=== PATIENT | female | born 1940 | race Caucasian/White ===

== ENCOUNTER 2023-06-29 09:22 | Outpatient (OUT) | payer MEDICARE, OTHER, SELFPAY ==
--- NOTE | 2023-06-29 09:34 | MR_ITS ---
[address] [address] Patient Name: DEEPIKA WILSON MRN: [id number] date: 1940 Sex: F Assigned Patient Location: MRI Current Patient Location: MRI Accession/Order Number: [id number] Exam Date: 06/29/2023 09:48 Report Date: 06/29/2023 12:08 At the request of: ADAM HILLMAN Procedure: MR lumbar spine wo con EXAM: MR lumbar spine wo con HISTORY: Spondylosis Of Lumbar Region M47.816 COMPARISON: None. TECHNIQUE: Multiplanar multisequence MR imaging of lumbar spine was performed without intravenous contrast. FINDINGS: Alignment: No substantial subluxation. Vertebrae: Diffuse chronic compression deformities are present involving all levels of the visualized thoracic and lumbar spine extending from T11 through L5 with varying degrees of height loss. There is near complete central height loss at L3 and prominent at least 70% height loss at T12 and L1. Approximately 60% height loss centrally at L5. There is associated prior vertebroplasty change at L5. There is associated retropulsion at multiple levels most prominently involving the posterior endplate of L3 superiorly measuring 4.5 mm. No marrow signal abnormalities to suggest neoplasm. Conus medullaris: Conus terminates in normal position at L1-L2 disc space. Normal signal and contour. Degenerative changes: T12-L1: Mild canal stenosis secondary to bulge and. No substantial foraminal stenosis. L1-L2: Mild canal stenosis secondary to retropulsion. No substantial foraminal stenosis. L2-L3: Mild diffuse disc bulge with small right subarticular protrusion. Mild facet arthropathy with thickening of ligamentum flavum. No substantial canal stenosis. Moderate bilateral foraminal stenosis. L3-L4: Diffuse disc bulge somewhat lobular appearance with mild canal stenosis. Superimposed retropulsion present slightly more superiorly resulting in mild canal stenosis at the level of mid L3 vertebral body. Mild facet arthropathy with thickening of ligamentum flavum. Mild left and minimal right foraminal stenosis. L4-L5: Moderate facet arthropathy with thickening of ligamentum flavum. Mild canal stenosis. Mild bilateral foraminal stenosis. L5-S1: Moderate left greater than right facet arthropathy with minimal thickening of ligamentum flavum. No substantial canal or foraminal stenosis. Upper Sacrum: No focal lesion identified. Additional comments: Probable right extrarenal pelvis. Multiple left renal cystic lesions are present measuring up to 1.9 cm along the posterior aspect of the left kidney. MR/MR lumbar spine wo con IMPRESSION: 1. Diffuse compression deformities involving the visualized lower thoracic and lumbar spine as detailed above without associated marrow edema to suggest acute to subacute fracture. Prior vertebroplasty changes present at L5. 2. Mild to moderate degenerative changes superimposed on multilevel mild retropulsion resulting in multilevel mild canal stenosis. 3. Multiple T2 hyperintense renal cystic lesions are present measuring up to 1.9 cm. While statistically these are likely to relate to simple cysts if not previously evaluated elsewhere renal ultrasound could be considered for further characterization. Electronically authenticated by: JOANNA VILLEDA Date: 06/29/2023 12:08
== END 2023-06-29 09:23 | disposition home or self-care (01) ==
PROVIDERS: PCP Family Medicine; Visit Provider Family Medicine
DX: M47.816 Spondylosis without myelopathy or radiculopathy, lumbar region (principal)
CPT/HCPCS: 72148

== ENCOUNTER 2023-12-24 08:40 | Emergency (ER) | payer MEDICARE, OTHER, SELFPAY ==
[2023-12-24] VITALS (17 sets, daily range): BP systolic 117–145; BP diastolic 60–83; PULSE 80–108; RESP 10–11; TEMP 36.8; O2SAT 99–100; BMI 20.5
--- NOTE | 2023-12-24 08:52 | XR_ITS ---
The [address] [address] Patient Name: DEEPIKA WILSON MRN: [id number] date: 1940 Sex: F Assigned Patient Location: ER Current Patient Location: ER Accession/Order Number: [id number] Exam Date: 12/24/2023 09:30 Report Date: 12/24/2023 09:43 At the request of: JOEL UREÑA Procedure: XR chest 1V EXAM: XR chest 1V HISTORY: cp COMPARISON: None. TECHNIQUE: AP view of the chest. FINDINGS: The cardiomediastinal silhouette is normal. Linear opacity of the right lung base. There is no pneumothorax. No pleural effusion is noted. The osseous structures are intact. XR/XR chest 1V IMPRESSION: Right basilar linear opacity may represent atelectasis or developing pneumonia. Electronically authenticated by: KEMAR PETERSON Date: 12/24/2023 09:43
--- NOTE | 2023-12-24 09:02 | ED_ITS ---
HPI - General Adult General Chief complaint: Chest Pain Stated complaint: CHEST PAIN Time Seen by Provider: 12/24/23 08:50 Source: patient Mode of arrival: ambulance History of Present Illness HPI narrative: Patient is a 83-year-old female who is presenting with left upper chest wall tightness and heaviness that started at 11 PM last night. Patient had mild nausea with this as well. Patient also has left-sided headache. Patient has no strokelike signs or symptoms. Patient has a history of 2 cardiac stents. Patient takes a baby aspirin daily only. Patient does have a history of atrial flutter and atrial fibrillation, she is currently in atrial flutter. Patient currently has no chest pain or shortness of breath. Patient has mild nausea no vomiting. Patient last stress test echocardiogram was approximately 4 years ago. Patient is currently at the [facility], she had left hip surgery last week with a left hip replacement at [facility]. Patient PCP is Dr. Ledezma. Patient's roving weight gauger is in the [facility] group. Her female roving weight gauger retired, she has not seen a new roving weight gauger yet. No other acute complaints. We did not receive report from the [facility] prior to patient arriving. I called the [facility] and spoke to Chiquita the nurses taking care of the patient. Chiquita told me that patient started having pain around 8:00 this morning, did not speak to Dr. Lagos, but sent patient to the ER to be evaluated at patient's request. All systems are negative except as noted/marked. All systems reviewed and otherwise negative. Nurses note and vital signs reviewed and patient is not hypoxic. General: The patient appears well and in no apparent distress. Patient is resting comfortably on cart. Patient is not toxic, lethargic, or listless Skin: Warm, dry, no pallor noted. There is no rash noted. No petechiae, purpur a. Patient has ecchymosis to her left lower buttock and left posterior thigh secondary to surgery. Patient has no large hematoma, incision is clean, dry, intact. No signs of bleeding or secondary infection. Patient's left hip and left posterior left thigh is normal for surgery. No large palpable hematoma. Head: Normocephalic, atraumatic Eye: Normal conjunctiva, no drainage, EOMI. PERRL Ears, Nose, Mouth, and Throat: oral mucosa is slightly dry. Nares patent. Mouth without vesicles. Cardiovascular: Regular Rate and Rhythm, no murmur, gallop, rub; no reproducible tenderness to palpation. Respiratory: Patient is in no distress, no accessory muscle use, lungs are clear to auscultation, no wheezing, rales or rhonchi Back: non-tender, no CVA tenderness bilaterally to percussion. No CT LS midline pain GI: no tenderness to palpation, no masses appreciated. No rebound, guarding, or rigidity noted. No distention Musculoskeletal: Patient has full range of motion of all of the extremities, no motor, sensory, or focal neurological deficits Neurological: A&O x4, normal speech Psychiatric: Cooperative Related Data Home Medications Medication Instructions Recorded Confirmed aspirin 81 mg capsule 81 mg PO DAILY 12/24/23 12/24/23 atorvastatin 20 mg tablet 20 mg PO .QHS 12/24/23 12/24/23 celecoxib 100 mg capsule 100 mg PO Q24H 12/24/23 12/24/23 cephalexin 500 mg capsule 500 mg PO Q12H 12/24/23 12/24/23 hydrocodone 5 mg-acetaminophen 325 1 tab PO Q6H PRN pain 12/24/23 12/24/23 mg tablet isosorbide mononitrate 60 mg 60 mg PO QAM 12/24/23 12/24/23 tablet,extended release 24 hr lisinopril 10 mg tablet 10 mg PO QAM 12/24/23 12/24/23 metoprolol tartrate 25 mg tablet 25 mg PO Q12H 12/24/23 12/24/23 paroxetine HCl 40 mg tablet 40 mg PO QAM 12/24/23 12/24/23 quetiapine 25 mg tablet 25 mg PO .QHS 12/24/23 12/24/23 Allergies Allergy/AdvReac Type Severity Reaction Status Date / Time morphine AdvReac Severe Hallucinati Verified 12/24/23 08:47 ng Sulfa (Sulfonamide AdvReac Severe Verified 12/24/23 08:47 Antibiotics) Exam Constitutional Vital Signs, click to edit/add: Last Vital Signs Temp 98.3 F 12/24/23 08:42 Pulse 83 12/24/23 10:50 Resp 11 L 12/24/23 08:44 BP 117/83 12/24/23 10:31 Pulse Ox 99 12/24/23 08:50 O2 Del Method Room Air 12/24/23 08:42 Course Vital Signs Vital signs: Vital Signs Temperature 98.3 F 12/24/23 08:42 Pulse Rate 94 H 12/24/23 08:42 Respiratory Rate 10 L 12/24/23 08:42 Blood Pressure 125/73 12/24/23 08:42 Pulse Oximetry 99 12/24/23 08:42 Oxygen Delivery Method Room Air 12/24/23 08:42 Temperature 98.3 F 12/24/23 08:42 Pulse Rate 83 12/24/23 10:50 Respiratory Rate 11 L 12/24/23 08:44 Blood Pressure 117/83 12/24/23 10:31 Pulse Oximetry 99 12/24/23 08:50 Oxygen Delivery Method Room Air 12/24/23 08:42 Medical Decision Making MDM Narrative Medical decision making narrative: Patient potassium was 3.2. Patient was given oral potassium to drink. Patient had 2 sets of cardiac enzymes that were negative. [address] Ledezma, he agrees that patient can go back to the [facility], in light of 2 negative troponins and patient's been pain-free for the past 3-1/2 hours that she has been here. He is aware that her past roving weight gauger has retired, and he will help set patient up with a new roving weight gauger and repeat stress echocardiogram as indicated. Patient understands this, no questions at discharge. Patient's headache is better, nausea has improved. Patient's daughter will drive him back to the [facility]. Patient has been doing rehab with a walker. Patient is asymptomatic at discharge. 3 and half hours of continuous cardiac monitoring, several bedside visits to reassess patient's symptoms, hemodynamics, 2 sets of troponins that were negative. Critical care time 31 minutes exclusive from separate billable procedures that were performed. The following was considered in the determination of critical care but not limited to the level of medical decision making, intensive cardiac and/or respiratory monitoring, frequent vital sign monitoring, evaluation of laboratory studies, evaluation of radiographic studies, oxygen monitoring, and constant monitoring and speaking to family at bedside Lab Data Labs: Lab Results 12/24/23 12/24/23 Range/Units 09:12 10:35 WBC 13.4 H (4.0-11.0) 10^3/uL RBC 2.14 L (4.20-5.40) 10^6/uL Hgb 8.5 L (12.0-16.0) g/dL Hct 25.7 L (36.0-48.0) % MCV 120.1 H (81.0-99.0) fL MCH 39.7 H (26.7-34.0) pg MCHC 33.1 (29.9-35.2) g/dL RDW 17.7 H (11.0-15.0) % Plt Count 602 H (150-450) 10^3/uL MPV 9.7 (9.5-13.5) fL Neut % (Auto) 78.6 H (43.0-75.0) % Lymph % (Auto) 8.4 L (20.5-60.0) % [place] % (Auto) 7.8 (1.7-12.0) % Eos % (Auto) 1.2 (0.9-7.0) % Baso % (Auto) 0.4 (0.2-2.0) % Neut # (Auto) 10.5 H (1.4-6.5) 10^3/uL Lymph # (Auto) 1.1 L (1.2-3.8) 10^3/uL [place] # (Auto) 1.1 H (0.3-0.8) 10^3/uL Eos # (Auto) 0.2 (0.0-0.7) 10^3/uL Baso # (Auto) 0.1 (0.0-0.1) 10^3/uL Abs Immat Gran (auto) 0.48 H (0.00-0.03) 10^3/uL Imm/Tot Granulo (auto) 3.6 H (0.0-0.5) % Sodium 140 (136-145) mmol/L Potassium 3.2 L (3.5-5.1) mmol/L Chloride 103 (98-107) mmol/L Carbon Dioxide 28.4 (21.0-32.0) mmol/L Anion Gap 11.8 BUN 12.0 (7.0-18.0) mg/dL Creatinine 0.69 (0.55-1.02) mg/dL Est GFR ( Amer) >60 (>=60) Est GFR (Non-Af Amer) >60 (>=60) BUN/Creatinine Ratio 17.4 Glucose 107 H (74-106) mg/dL Calcium 8.0 L (8.5-10.1) mg/dL Total Bilirubin 0.7 (0.2-1.0) mg/dL AST 12 L (15-37) U/L ALT 9 L (14-59) U/L Alkaline Phosphatase 85 (46-116) U/L Troponin I High Sens 11.8 12.0 (4.0-51.3) pg/mL NT-Pro-B Natriuret Pep 2680.0 H* (<=1800.0) pg/mL Total Protein 6.0 L (6.4-8.2) g/dL Albumin 2.3 L (3.4-5.0) g/dL Globulin 3.7 g/dL Albumin/Globulin Ratio 0.6 Lipase 11.0 L (16.0-77.0) U/L ECG Data Attestation: I personally reviewed and interpreted this ECG as follows: (EKG interpretation. Irregular irregular rhythm at 91 beats a minute. Normal axis deviation. No acute ST elevation, no acute ectopy. QTc of 385.) Discharge Plan Discharge Chief Complaint: Chest Pain Clinical Impression: Chest pain, Hypokalemia Patient Disposition: Home, Self-Care Time of Disposition Decision: 12:05 Condition: Fair Prescriptions / Home Meds: No Action quetiapine 25 mg tablet 25 mg PO .QHS atorvastatin 20 mg tablet 20 mg PO .QHS hydrocodone-acetaminophen 5-325 mg tablet 1 tab PO Q6H PRN (Reason: pain) isosorbide mononitrate 60 mg tablet extended release 24 hr 60 mg PO QAM lisinopril 10 mg tablet 10 mg PO QAM paroxetine HCl 40 mg tablet 40 mg PO QAM celecoxib 100 mg capsule 100 mg PO Q24H metoprolol tartrate 25 mg tablet 25 mg PO Q12H cephalexin 500 mg capsule 500 mg PO Q12H aspirin 81 mg capsule 81 mg PO DAILY Instructions: Chest Pain (ED), Hypokalemia (ED) Additional Instructions: Your potassium was slightly low at 3.2. I have spoken to Dr. Ledezma about your case. Dr. Ledezma will help you set up a new roving weight gauger. If you are having any more chest pain, shortness of breath, or any other acute concerns, let nurses know. Stand Alone Forms: Portal Instructions Referrals: Tito Ledezma MD [Primary Care Provider] - 1 week
[2023-12-24] MEDS: ASPIRIN 81 MG TAB.CHEW 162 MG PO (09:16)
[2023-12-24] MEDS: 0.9 % SODIUM CHLORIDE 500 ML IV (09:16)
[2023-12-24] MEDS: ACETAMINOPHEN 325 MG TABLET 650 MG PO (09:16)
[2023-12-24] MEDS: ONDANSETRON PF 4 MG/2 ML VIAL IV (09:16)
[2023-12-24 09:22] LABS: Basophils Absolute Auto 0.1 10^3/uL (0.0-0.1); Basophils Percent Auto 0.4 % (0.2-2.0); Eosinophils Absolute Auto 0.2 10^3/uL (0.0-0.7); Eosinophils Percent Auto 1.2 % (0.9-7.0); Hematocrit 25.7 % (36.0-48.0); Hemoglobin 8.5 g/dL (12.0-16.0); Immature Granulocytes Abs Auto 0.48 10^3/uL (0.00-0.03); Immature Granulocytes Pct Auto 3.6 % (0.0-0.5); Lymphocytes Absolute Auto 1.1 10^3/uL (1.2-3.8); Lymphocytes Percent Auto 8.4 % (20.5-60.0); Mean Corpuscular HGB Conc 33.1 g/dL (29.9-35.2); Mean Corpuscular Hemoglobin 39.7 pg (26.7-34.0); Mean Corpuscular Volume 120.1 fL (81.0-99.0); Mean Platelet Volume 9.7 fL (9.5-13.5); Monocytes Absolute Auto 1.1 10^3/uL (0.3-0.8); Monocytes Percent Auto 7.8 % (1.7-12.0); Neutrophils Absolute Auto 10.5 10^3/uL (1.4-6.5); Neutrophils Percent Auto 78.6 % (43.0-75.0); Platelet Count 602 10^3/uL (150-450); Red Cell Distribution Width 17.7 % (11.0-15.0); White Blood Count 13.4 10^3/uL (4.0-11.0)
[2023-12-24 09:40] LABS: Alanine Aminotransferase 9 U/L (14-59); Albumin Globulin Ratio 0.6; Albumin Level 2.3 g/dL (3.4-5.0); Alkaline Phosphatase 85 U/L (46-116); Anion Gap 11.8; Aspartate Amino Transferase 12 U/L (15-37); BUN Creatinine Ratio 17.4; Bilirubin Total 0.7 mg/dL (0.2-1.0); Carbon Dioxide 28.4 mmol/L (21.0-32.0); Chloride 103 mmol/L (98-107); Estimated GFR (African America >60 (>=60); Estimated GFR (Non-African Ame >60 (>=60); Globulin 3.7 g/dL; Glucose 107 mg/dL (74-106); Potassium 3.2 mmol/L (3.5-5.1); Sodium 140 mmol/L (136-145)
[2023-12-24 09:44] LABS: Red Blood Count 2.14 10^6/uL (4.20-5.40)
[2023-12-24 09:48] LABS: Troponin I High Sensitivity 11.8 pg/mL (4.0-51.3)
--- NOTE | 2023-12-24 10:25 | ECG_ITS ---
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
[2023-12-24] MEDS: POTASSIUM BICARBONATE/CIT 25 MEQ TABLET EFF 50 MEQ PO (12:06)
== END 2023-12-24 12:34 | disposition home or self-care (01) ==
PROVIDERS: Emergency Provider Emergency Medicine; PCP Family Medicine
DX: R07.9 Chest pain, unspecified (principal); E87.6 Hypokalemia; Z95.5 Presence of coronary angioplasty implant and graft; Z79.82 Long term (current) use of aspirin; I48.91 Unspecified atrial fibrillation; I48.92 Unspecified atrial flutter; Z96.642 Presence of left artificial hip joint; Z79.899 Other long term (current) drug therapy; R51.9 Headache, unspecified; R11.0 Nausea
CPT/HCPCS: 36415; 71045; 80053; 83690; 83880; 84484; 85025; 93005; 96374; 99285; J2405

== ENCOUNTER 2024-05-30 12:42 | Outpatient (RCR) | payer MEDICARE, OTHER, SELFPAY ==
[2024-05-02 13:10] LABS: Basophils Absolute Auto 0.1 10^3/uL (0.0-0.1); Basophils Percent Auto 0.6 % (0.2-2.0); Eosinophils Absolute Auto 0.1 10^3/uL (0.0-0.7); Eosinophils Percent Auto 0.7 % (0.9-7.0); Hematocrit 40.8 % (36.0-48.0); Hemoglobin 13.2 g/dL (12.0-16.0); Immature Granulocytes Abs Auto 0.05 10^3/uL (0.00-0.03); Immature Granulocytes Pct Auto 0.5 % (0.0-0.5); Lymphocytes Absolute Auto 1.4 10^3/uL (1.2-3.8); Lymphocytes Percent Auto 15.4 % (20.5-60.0); Mean Corpuscular HGB Conc 32.4 g/dL (29.9-35.2); Mean Corpuscular Hemoglobin 36.2 pg (26.7-34.0); Mean Corpuscular Volume 111.8 fL (81.0-99.0); Mean Platelet Volume 9.9 fL (9.5-13.5); Monocytes Absolute Auto 0.5 10^3/uL (0.3-0.8); Monocytes Percent Auto 5.8 % (1.7-12.0); Neutrophils Absolute Auto 7.2 10^3/uL (1.4-6.5); Platelet Count 702 10^3/uL (150-450); Red Blood Count 3.65 10^6/uL (4.20-5.40); Red Cell Distribution Width 16.8 % (11.0-15.0); Reticulocyte Pct Auto 1.31 % (0.60-3.10); White Blood Count 9.4 10^3/uL (4.0-11.0)
[2024-05-02 13:25] LABS: Alanine Aminotransferase 15 U/L (14-59); Albumin Globulin Ratio 1.3; Albumin Level 4.4 g/dL (3.4-5.0); Alkaline Phosphatase 88 U/L (46-116); Anion Gap 14.1; Aspartate Amino Transferase 12 U/L (15-37); Bilirubin Total 0.8 mg/dL (0.2-1.0); Calcium 8.9 mg/dL (8.5-10.1); Carbon Dioxide 27.8 mmol/L (21.0-32.0); Chloride 99 mmol/L (98-107); Estimated GFR (African America >60 (>=60); Estimated GFR (Non-African Ame 53 (>=60); Globulin 3.3 g/dL; Glucose 93 mg/dL (74-106); Lactate Dehydrogenase 207 U/L (81-234); Potassium 3.9 mmol/L (3.5-5.1); Sodium 137 mmol/L (136-145); Total Protein 7.7 g/dL (6.4-8.2); Uric Acid 4.9 mg/dL (2.6-6.0)
[2024-05-02 14:02] LABS: Percent Iron Saturation 37.5 %
[2024-05-03 15:09] LABS: Erythropoietin (EPO), Serum 6.5 mIU/mL (2.6-18.5)
[2024-05-05 08:11] LABS: Alpha-1-Globulin 0.3 g/dL (0.0-0.4); Alpha-2-Globulin 0.8 g/dL (0.4-1.0); Immunoglobulin A, Qn, Serum 114 mg/dL (64-422); Immunoglobulin G, Qn, Serum 987 mg/dL (586-1602); Immunoglobulin M, Qn, Serum 102 mg/dL (26-217); Protein, Total 6.9 g/dL (6.0-8.5)
[2024-05-09 13:50] VITALS: BP 136/84; PULSE 65; TEMP 36.6; O2SAT 95
[2024-05-09] MEDS: CYANOCOBALAMIN 1,000 MCG/ML VIAL 1000 MCG IM (14:10)
--- NOTE | 2024-05-09 14:48 | PC.NURSE ---
1350: Pt. to [facility] amb. for scheduled injection. Seated in recliner. VSS. Allergies verified. Denies questions regarding Vitamin B12. 1410: Medicated with Vitamin B 12 as ordered. See MAR. No bleeding to site. Pt. tolerated without c/o. 1412: Pt. d/c'd amb. to home.
[2024-05-16 12:50] VITALS: BP 192/64; PULSE 66; TEMP 36.2; O2SAT 98
[2024-05-16] MEDS: CYANOCOBALAMIN 1,000 MCG/ML VIAL 1000 MCG IM (13:07)
--- NOTE | 2024-05-16 13:12 | PC.NURSE ---
1250:Pt. to [facility] amb. for injection. Seated in recliner. Denies adverse reaction with last injection. VSS. 1307: Medicated with Vit. B 12 as ordered to left deltoid. No bleeding to site. Pt. tolerated without c/o. 1308: Pt. d/c'd amb. to home.
[2024-05-23 16:57] LABS: Basophils Absolute Auto 0.1 10^3/uL (0.0-0.1); Basophils Percent Auto 0.6 % (0.2-2.0); Eosinophils Absolute Auto 0.1 10^3/uL (0.0-0.7); Eosinophils Percent Auto 0.8 % (0.9-7.0); Hematocrit 34.5 % (36.0-48.0); Hemoglobin 11.3 g/dL (12.0-16.0); Immature Granulocytes Abs Auto 0.04 10^3/uL (0.00-0.03); Immature Granulocytes Pct Auto 0.5 % (0.0-0.5); Lymphocytes Absolute Auto 1.6 10^3/uL (1.2-3.8); Lymphocytes Percent Auto 19.7 % (20.5-60.0); Mean Corpuscular HGB Conc 32.8 g/dL (29.9-35.2); Mean Corpuscular Hemoglobin 39.1 pg (26.7-34.0); Mean Corpuscular Volume 119.4 fL (81.0-99.0); Monocytes Absolute Auto 0.5 10^3/uL (0.3-0.8); Monocytes Percent Auto 5.9 % (1.7-12.0); Neutrophils Percent Auto 72.5 % (43.0-75.0); Platelet Count 437 10^3/uL (150-450); Red Blood Count 2.89 10^6/uL (4.20-5.40); Red Cell Distribution Width 17.8 % (11.0-15.0); White Blood Count 8.3 10^3/uL (4.0-11.0)
[2024-05-23] MEDS: CYANOCOBALAMIN 1,000 MCG/ML VIAL 1000 MCG IM (17:08)
--- NOTE | 2024-05-23 17:09 | PC.NURSE ---
Ambulatory to chair [address] Stark. See office visit for further health information. See MAR documentation. Tolerated well, released ambulatory
[2024-05-23 17:23] LABS: Alanine Aminotransferase 17 U/L (14-59); Albumin Globulin Ratio 1.2; Albumin Level 3.7 g/dL (3.4-5.0); Alkaline Phosphatase 74 U/L (46-116); Anion Gap 9.4; Aspartate Amino Transferase 14 U/L (15-37); BUN Creatinine Ratio 20.4; Bilirubin Total 0.4 mg/dL (0.2-1.0); Calcium 8.4 mg/dL (8.5-10.1); Carbon Dioxide 27.7 mmol/L (21.0-32.0); Chloride 102 mmol/L (98-107); Estimated GFR (African America 59 (>=60); Estimated GFR (Non-African Ame 48 (>=60); Glucose 87 mg/dL (74-106); Lactate Dehydrogenase 175 U/L (81-234); Potassium 5.1 mmol/L (3.5-5.1); Sodium 134 mmol/L (136-145); Total Protein 6.7 g/dL (6.4-8.2)
[2024-05-23 18:03] LABS: Percent Iron Saturation 22.5 %
[2024-05-30] MEDS: CYANOCOBALAMIN 1,000 MCG/ML VIAL 1000 MCG IM (12:47)
== END 2024-05-31 23:59 | disposition home or self-care (01) ==
LOC: HEMC 12:42
PROVIDERS: PCP Family Medicine; Visit Provider Internal Medicine Hematology & Oncology
DX: D47.3 Essential (hemorrhagic) thrombocythemia (principal); D64.9 Anemia, unspecified; D72.829 Elevated white blood cell count, unspecified; D51.9 Vitamin B12 deficiency anemia, unspecified; Z86.73 Personal history of transient ischemic attack (TIA), and cerebral infarction without residual deficits; Z96.649 Presence of unspecified artificial hip joint
CPT/HCPCS: 36415; 80053; 82607; 82668; 82728; 82746; 82784; 83540; 83550; 83615; 84155; 84165; 84550; 85025; 85045; 86334; 96372; G0463; J3420

== ENCOUNTER 2024-06-27 07:18 | Outpatient (RCR) | payer MEDICARE, OTHER, SELFPAY ==
[2024-06-13] MEDS: CYANOCOBALAMIN 1,000 MCG/ML VIAL 1000 MCG IM (13:04)
== END 2024-07-01 23:59 | disposition home or self-care (01) ==
LOC: HEMC 07:18
PROVIDERS: PCP Family Medicine; Visit Provider Internal Medicine Hematology & Oncology
DX: D51.9 Vitamin B12 deficiency anemia, unspecified (principal); D47.3 Essential (hemorrhagic) thrombocythemia; D64.9 Anemia, unspecified; D72.829 Elevated white blood cell count, unspecified
CPT/HCPCS: 96372; J3420

== ENCOUNTER 2024-06-28 18:33 | Observation (INO) | payer MEDICARE, OTHER, SELFPAY ==
[2024-06-28] VITALS (23 sets, daily range): BP systolic 132–165; BP diastolic 78–84; PULSE 66–89; TEMP 36.4–36.7; O2SAT 93–99; BMI 19.4; BMI 20.4
[2024-06-28 18:46] LABS: Glucometer 122 mg/dL (74-106)
--- NOTE | 2024-06-28 18:50 | ECG_ITS ---
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
--- NOTE | 2024-06-28 18:50 | CT_ITS ---
The [address] [address] Patient Name: DEEPIKA WILSON MRN: [id number] date: 1940 Sex: F Assigned Patient Location: ER Current Patient Location: ER Accession/Order Number: [id number] Exam Date: 06/28/2024 18:58 Report Date: 06/28/2024 20:19 At the request of: MONICA GONZALES Procedure: CT stroke head/brain wo con EXAMINATION: CT stroke head/brain wo con, 06/28/2024 3:58 PM PDT HISTORY: Headache COMPARISON: CT head 08/23/2022. TECHNIQUE: CT scan of the head was performed without IV contrast. CT dose reduction technique was used, including Automated Exposure Control. FINDINGS: BRAIN PARENCHYMA/CSF SPACES: Moderately enlarged ventricles and sulci consistent with atrophy. There is no hemorrhage, mass effect or midline shift. There is diffuse atherosclerotic calcification of the vertebral and carotid arteries. There is mild low-attenuation throughout the white matter consistent with chronic microvascular ischemia. PARANASAL SINUSES: Clear. SKULL BASE AND CALVARIUM: Normal. EXTRACRANIAL SOFT TISSUES: Normal. CT/CT stroke head/brain wo con IMPRESSION: 1. No acute intracranial abnormality. 2. Atrophy, atherosclerotic calcification, and chronic microvascular ischemia. Electronically authenticated by: LUZ RIDDLE Date: 06/28/2024 20:19
--- NOTE | 2024-06-28 18:51 | CT_ITS ---
The [address] [address] Patient Name: DEEPIKA WILSON MRN: [id number] date: 1940 Sex: F Assigned Patient Location: ER Current Patient Location: ER Accession/Order Number: [id number] Exam Date: 06/28/2024 19:06 Report Date: 06/28/2024 21:07 At the request of: MONICA GONZALES Procedure: CT angio head EXAM: CT angio head, CT angio neck HISTORY: Headache, nausea, lip numbness, and difficulty seeing out of the right eye. COMPARISON: Head CT on 06/20/2024. CT of the chest on 03/30/2017. TECHNIQUE: Following IV administration of iodinated contrast, axial CT scans of the head and neck were obtained. MPR and MIP images images were obtained. Carotid stenosis is based on NASCET criteria. Dose reduction techniques were achieved by using automated exposure control and/or adjustment of mA and/or kV according to patient size and/or the use of an iterative reconstruction technique. FINDINGS: CTA OF THE HEAD: No major branch occlusion or significant intracranial stenosis. No aneurysm. Dural venous sinuses are patent. CTA OF THE NECK: No abnormal soft tissue mass in the neck. The visualized lungs show minimal increase in size of the well circumscribed nodule in the central zone of the right upper lobe, from about 6.1 mm on 03/30/2017 to about 7 mm on the current exam. It is likely due to benign process.. Osseous structures are intact. The aortic arch shows no aneurysm. The great vessels of the aortic arch show no significant stenosis. Vertebral arteries show no significant stenosis or dissection. Common carotids and internal carotids show no significant stenosis or dissection. CT/CT angio head IMPRESSION: No large vessel occlusion. No significant intracranial stenosis. Patent dural venous sinuses. Common carotids, internal carotids, and vertebral arteries show no dissection or significant stenosis. Electronically authenticated by: JOHNIE PHIPPS Date: 06/28/2024 21:07
--- NOTE | 2024-06-28 18:51 | CT_ITS ---
The [address] [address] Patient Name: DEEPIKA WILSON MRN: [id number] date: 1940 Sex: F Assigned Patient Location: ER Current Patient Location: ER Accession/Order Number: [id number] Exam Date: 06/28/2024 19:06 Report Date: 06/28/2024 21:07 At the request of: MONICA GONZALES Procedure: CT angio neck EXAM: CT angio head, CT angio neck HISTORY: Headache, nausea, lip numbness, and difficulty seeing out of the right eye. COMPARISON: Head CT on 06/20/2024. CT of the chest on 03/30/2017. TECHNIQUE: Following IV administration of iodinated contrast, axial CT scans of the head and neck were obtained. MPR and MIP images images were obtained. Carotid stenosis is based on NASCET criteria. Dose reduction techniques were achieved by using automated exposure control and/or adjustment of mA and/or kV according to patient size and/or the use of an iterative reconstruction technique. FINDINGS: CTA OF THE HEAD: No major branch occlusion or significant intracranial stenosis. No aneurysm. Dural venous sinuses are patent. CTA OF THE NECK: No abnormal soft tissue mass in the neck. The visualized lungs show minimal increase in size of the well circumscribed nodule in the central zone of the right upper lobe, from about 6.1 mm on 03/30/2017 to about 7 mm on the current exam. It is likely due to benign process.. Osseous structures are intact. The aortic arch shows no aneurysm. The great vessels of the aortic arch show no significant stenosis. Vertebral arteries show no significant stenosis or dissection. Common carotids and internal carotids show no significant stenosis or dissection. CT/CT angio neck IMPRESSION: No large vessel occlusion. No significant intracranial stenosis. Patent dural venous sinuses. Common carotids, internal carotids, and vertebral arteries show no dissection or significant stenosis. Electronically authenticated by: JOHNIE PHIPPS Date: 06/28/2024 21:07
--- NOTE | 2024-06-28 18:52 | ED.GENADUL1 ---
HPI HPI - General Adult General Chief complaint: Headache Stated complaint: Visual Disturbance Time Seen by Provider: 06/28/24 18:35 Source: patient Mode of arrival: walk-in Limitations: no limitations History of Present Illness HPI narrative: Patient is an 83-year-old female with a history of hypertension, A-fib who presents to the emergency department for evaluation of global headache that began last night associated with blurry vision in both eyes, worse in the left eye as well as left-sided facial numbness and left hand numbness. Patient states that the visual change and headache started last night, she used Tylenol without improvement. She states she noticed the numbness in the lips and face shortly after and today noticed numbness and tingling in the left hand. No falls or injuries. She denies upper respiratory symptoms, fevers, vomiting. Related Data Home Medications ?Medication ?Instructions ?Recorded ?Confirmed aspirin 81 mg capsule 81 mg PO DAILY 12/24/23 06/28/24 atorvastatin 20 mg tablet 20 mg PO .QHS 12/24/23 06/28/24 celecoxib 100 mg capsule 100 mg PO Q24H 12/24/23 06/28/24 hydrocodone 5 mg-acetaminophen 325 1 tab PO Q6H PRN pain 12/24/23 06/28/24 mg tablet isosorbide mononitrate 60 mg 60 mg PO QAM 12/24/23 06/28/24 tablet,extended release 24 hr lisinopril 10 mg tablet 10 mg PO QAM 12/24/23 06/28/24 metoprolol tartrate 25 mg tablet 25 mg PO Q12H 12/24/23 06/28/24 paroxetine HCl 40 mg tablet 40 mg PO QAM 12/24/23 06/28/24 quetiapine 25 mg tablet 25 mg PO .QHS 12/24/23 06/28/24 hydroxyurea 500 mg capsule 500 mg PO DAILY 06/28/24 06/28/24 ondansetron 4 mg disintegrating 4 mg PO Q6H PRN nausea and vomiting 06/28/24 06/28/24 tablet Allergies Allergy/AdvReac Type Severity Reaction Status Date / Time morphine AdvReac Severe Hallucinati Verified 12/24/23 08:47 ng Sulfa (Sulfonamide AdvReac Severe Verified 12/24/23 08:47 Antibiotics) Opioid HPI Opioid Management Most Recent Opioid Data: Last Pain Scale 6 06/28/24 19:33 Last Pain Assessment 06/29/24 06:00 Last MAR Pain Assessment 06/28/24 19:33 Last ORT Total Score 6 06/28/24 21:58 Last ORT Risk Category Moderate Risk 06/28/24 21:58 Review of Systems ROS Constitutional Denies: fever or chills Eyes Reports: change in vision and blurry vision Ears, nose, mouth, and throat Denies: throat pain or nasal congestion Cardiovascular Denies: chest pain Respiratory Denies: shortness of breath Gastrointestinal Reports: nausea; Denies: vomiting Musculoskeletal Denies: back pain or neck pain Integumentary/Breast Denies: rash Neurological Reports: headache and numbness in extremities; Denies: weakness in extremities, dizziness or vertigo Hematologic/Lymphatic Denies: easy bruising or easy bleeding PFSH PFSH Medical History (Updated 06/29/24 @ 01:57 by Destiney Fenton RN) Skin cancer ?C44.90 - Unspecified malignant neoplasm of skin, unspecified (ICD-10) Mini stroke ?G45.9 - Transient cerebral ischemic attack, unspecified (ICD-10) Sleep apnea ?G47.30 - Sleep apnea, unspecified (ICD-10) Afib ?I48.91 - Unspecified atrial fibrillation (ICD-10) HTN (hypertension) ?I10 - Essential (primary) hypertension (ICD-10) Surgical History (Updated 06/29/24 @ 01:56 by Destiney Fenton RN) H/O heart artery stent ?Z95.5 - Presence of coronary angioplasty implant and graft (ICD-10) History of back surgery ?Z98.890 - Other specified postprocedural states (ICD-10) History of left hip replacement ?Z96.642 - Presence of left artificial hip joint (ICD-10) Social History (Updated 06/29/24 @ 01:57 by Destiney Fenton RN) Smoking status: Never smoker Highest level of school completed/degree received: 12th grade, no diploma Exam Narrative Exam Narrative: Gen.: Awake, alert, in no distress Head: Normocephalic, atraumatic ENT: Moist mucous membranes, bilateral TMs clear, no facial drooping noted; normal extraocular muscle motion Respiratory: No respiratory distress Extremities: Moves extremities equally, no injuries noted Psych: Normal mood and affect Neuro: No focal neuro deficit Skin: Warm, dry, intact Constitutional Vital Signs, click to edit/add: Last Vital Signs Temp 97.5 F L 06/29/24 04:00 Pulse 63 06/29/24 06:00 Resp 15 06/29/24 04:00 BP 94/55 06/29/24 04:00 Pulse Ox 96 06/29/24 04:38 O2 Del Method Room Air 06/29/24 04:38 Course Vital Signs Vital signs: Vital Signs Temperature 98.0 F 06/28/24 18:37 Pulse Rate 89 06/28/24 18:37 Respiratory Rate 18 06/28/24 18:37 Blood Pressure 152/78 H 06/28/24 18:37 Pulse Oximetry 99 06/28/24 18:37 Oxygen Delivery Method Room Air 06/28/24 18:37 Temperature 97.5 F L 06/29/24 04:00 Pulse Rate 63 06/29/24 06:00 Respiratory Rate 15 06/29/24 04:00 Blood Pressure 94/55 06/29/24 04:00 Pulse Oximetry 96 06/29/24 04:38 Oxygen Delivery Method Room Air 06/29/24 04:38 Medical Decision Making MDM Narrative Medical decision making narrative: This patient was treated with Phenergan, Solu-Medrol, low-dose fentanyl. We avoided Reglan given her other psychiatric medications to avoid cross reaction and based on her age, I am hesitant to give Toradol or Benadryl. CT of the brain was performed which is unremarkable as well as CT angio of the head and neck with no evidence of significant vessel stenosis. Visual acuity was attempted, patient and family did state to nursing that the patient has had these visual changes ongoing for some time and has already seen an eye doctor for them. On reevaluation, headache has resolved and the patient is no longer complaining of numbness. I discussed the case with Dr. Marino for telestroke, he is in agreement the patient can be treated for atypical migraine at this facility although given her age and risk factors, she should be admitted for an MRI. Patient is resting comfortably on reevaluation and in agreement with treatment plan. Patient admitted to the hospitalist for atypical migraine versus TIA. Stable at time of admission SUPERVISED APC VISIT, PHYSICIAN ATTESTATION: Based on the medical record the care appears appropriate. ? Medical Records Medical records reviewed: Yes I reviewed the patient's medical records Lab Data Lab results reviewed: Yes I reviewed the patient's lab results Labs: Lab Results 06/28/24 06/28/24 Range/Units 18:46 18:55 WBC 6.5 (4.0-11.0) 10^3/uL RBC 2.81 L (4.20-5.40) 10^6/uL Hgb 11.8 L (12.0-16.0) g/dL Hct 34.9 L (36.0-48.0) % MCV 124.2 H (81.0-99.0) fL MCH 42.0 H (26.7-34.0) pg MCHC 33.8 (29.9-35.2) g/dL RDW 16.9 H (11.0-15.0) % Plt Count 498 H (150-450) 10^3/uL MPV 10.0 (9.5-13.5) fL Neut % (Auto) 65.3 (43.0-75.0) % Lymph % (Auto) 21.6 (20.5-60.0) % Hinds % (Auto) 10.2 (1.7-12.0) % Eos % (Auto) 1.4 (0.9-7.0) % Baso % (Auto) 0.9 (0.2-2.0) % Neut # (Auto) 4.3 (1.4-6.5) 10^3/uL Lymph # (Auto) 1.4 (1.2-3.8) 10^3/uL Hinds # (Auto) 0.7 (0.3-0.8) 10^3/uL Eos # (Auto) 0.1 (0.0-0.7) 10^3/uL Baso # (Auto) 0.1 (0.0-0.1) 10^3/uL Abs Immat Gran (auto) 0.04 H (0.00-0.03) 10^3/uL Imm/Tot Granulo (auto) 0.6 H (0.0-0.5) % ESR 10 (<=30) mm/hr PT 11.3 (9.0-11.6) sec INR 1.07 Sodium 138 (136-145) mmol/L Potassium 4.3 (3.5-5.1) mmol/L Chloride 102 (98-107) mmol/L Carbon Dioxide 29.4 (21.0-32.0) mmol/L Anion Gap 10.9 BUN 15.0 (7.0-18.0) mg/dL Creatinine 1.10 H (0.55-1.02) mg/dL Est GFR ( Amer) 57 L (>=60) Est GFR (Non-Af Amer) 47 L (>=60) BUN/Creatinine Ratio 13.6 Glucose 122 H (74-106) mg/dL Lactate 1.2 (0.4-2.0) mmol/L Calcium 8.7 (8.5-10.1) mg/dL Total Bilirubin 0.4 (0.2-1.0) mg/dL AST 10 L (15-37) U/L ALT 13 L (14-59) U/L Alkaline Phosphatase 69 (46-116) U/L Troponin I High Sens 4.6 (4.0-51.3) pg/mL C-Reactive Protein <0.50 (<=0.50) mg/dL Total Protein 6.5 (6.4-8.2) g/dL Albumin 3.7 (3.4-5.0) g/dL Globulin 2.8 g/dL Albumin/Globulin Ratio 1.3 POC Glucose 122 H (74-106) mg/dL Imaging Data CT scan - head: Attestation: I have reviewed the pertinent imaging results. Radiologist's impression: ITS Impressions Brain CT 06/28/24 18:50 IMPRESSION: 1. No acute intracranial abnormality. 2. Atrophy, atherosclerotic calcification, and chronic microvascular ischemia. Electronically authenticated by: LUZ RIDDLE Date: 06/28/2024 20:19 Head CTA 06/28/24 18:51 IMPRESSION: No large vessel occlusion. No significant intracranial stenosis. Patent dural venous sinuses. Common carotids, internal carotids, and vertebral arteries show no dissection or significant stenosis. Electronically authenticated by: JOHNIE PHIPPS Date: 06/28/2024 21:07 Neck CTA 06/28/24 18:51 IMPRESSION: No large vessel occlusion. No significant intracranial stenosis. Patent dural venous sinuses. Common carotids, internal carotids, and vertebral arteries show no dissection or significant stenosis. Electronically authenticated by: JOHNIE PHIPPS Date: 06/28/2024 21:07 ECG Data Attestation: I personally reviewed and interpreted this ECG as follows: (Normal sinus rhythm at a rate of 66, no acute ST elevation or ectopy. EKG reviewed by attending physician) Discharge Plan Discharge Chief Complaint: Headache Clinical Impression: Headache, Paresthesia Patient Disposition: Admitted as Observation Time of Disposition Decision: 21:27 Condition: Good Discharge Date/Time: 06/28/24 21:45
--- OUTSIDE RECORDS SUMMARY | 2024-06-28 18:54 | XMS_ITS | CCD ---
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 Name Role Phone DESTINEE SMART Admitting Unavailable DESTINEE SMART Attending Unavailable UNKNOWN, PHYSICIAN Referring Unavailable UNKNOWN, PHYSICIAN Primary Care Unavailable Kady, Tito Lopez Primary Care Provider Naderejohnson, Tito Lopez Primary Care Provider Naderer, Tito Lopez Primary Care Provider NADEREJohnson, DR TITO Lopez Primary Care Unavailable KENNETH, DR ARETHA Andersen Admitting Unavailabl e KENNETH, DR ARETHA Andersen Attending Unavailabl e KENNETH, DR ARETHA Andersen Consulting Unavailabl e WEST, SOTERO Yuan Consulting Unavailable KLYM, COLLIN Consulting Unavailable NADERER, DR TITO Lopez Admitting Unavailable NADERER, DR TITO Lopez Attending Unavailable NADERER, DR TITO Lopez Primary Care Unavailable NADERER, DR TITO Lopez Consulting Unavailable NADERER, DR TITO Lopez Admitting Unavailable NADERER, DR TITO Lopez Attending Unavailable NADERER, DR TITO Lopez Primary Care Unavailable ZIEBER, DR LUZ Ornelas Consulting Unavailable NADERER, DR TITO Lopez Consulting Unavailable YOLANDAWPERCY, KAMARA H Admitting Unavailable FAWWAD, SHAIKH Mary Attending Unavailable NADERER, DR TITO Lopez Primary Care Unavailable FAWPERCY, H Consulting Unavailable NADERER, DR TITO Lopez Admitting Unavailable NADERER, DR TITO Lopez Attending Unavailable NADERER, DR TITO Lopez Primary Care Unavailable ZIEBER, DR LUZ Ornelas Consulting Unavailable NADERER, DR TITO Lopez Consulting Unavailable NADERER, DR TITO Lopez Admitting Unavailable NADERER, DR TITO Lopez Attending Unavailable NADERER, DR TITO Lopez Primary Care Unavailable NADERER, DR TITO Lopez Consulting Unavailable NADERER, DR TITO Lopez Primary Care Unavailable JULIANA PRAKASH Admitting Unavailable JULIANA PRAKASH Attending Unavailable ZIVITALIY, DR LUZ R Consulting Unavailable HALEY ., JULIANA Consulting Unavailable LINA DOE Attending Unavailable Tito Hillman MD Primary Care Provider [phone] JR. DOREEN, KAYLAN Kapadia Attending Unavaila lesley STEWART JR., KAYLAN Kapadia Referring Unavaila GAEL Henson Attending Unavailable ASCENCION, GAEL Morris Referring Unavailable NADERER, TITO Attending Unavailable DB, ARISTEO Kapadia Referring Unavailable VEGAS, GAEL Primary Care Unavailable DISHAOTHANTON, ARISTEO Kapadia Referring Unavailable VEGAS, GAEL Primary Care Unavailable MICHAEL CONNOR Attending Unavailable JAMAL MAYERS Admitting Unavailable VEGAS, GAEL Primary Care Unavailable DB, ARISTEO Kapadia Consulting Unavailable CARLOS MEAD Consulting Unavailable Tito Hillman Primary Care Provider [phone] TITO HILLMAN Primary Care Unavailable ABHYANKAR, ROD Referring Unavailable ABHYANKAR, ROD Attending Unavailable KADY, TITO Lopez Primary Care Unavailable ABHYANKAR, ROD Referring Unavailable NADERER, TITO Lopez Primary Care Unavailable ABHYANKAR, ROD Referring Unavailable ABHYANKAR, ROD Referring Unavailable NADERER, TITO Lopez Primary Care Unavailable ABHYANKAR, ROD Referring Unavailable NADEREJohnson, TITO Lopez Primary Care Unavailable ABHYANKAR, ROD Attending Unavailable KADY, TITO Lopez Primary Care Unavailable ABHYANKAR, ROD Referring Unavailable Allergies Allergy Classification Reported Allergen(s) Allergy Type Date of Onset Reaction(s) Facility Opioid Agonists (1 source) Morphine; Translations: [MORPHINE] Drug Allergy 4 [facility] sulfaSALAzine (1 source) sulfaSALAzine; Translations: [SULFASALAZINE] Drug Allergy 4 [facility] Sulfonamides (antibiotic) (1 source) Sulfonamides (Antibiotic); Translations: [SULFA (SULFONAMIDE ANTIBIOTICS)] Drug Allergy 5 [facility] Sulfur (1 source) Sulfur; Translations: [SULFUR] Drug Allergy 4 [facility] (16 sources) Morphine; Translations: [MORPHINE] Drug Allergy 4 Unknown, Rash, GI intolerance [facility] (13 sources) sulfaSALAzine Drug Allergy [address] [facility] (16 sources) Sulfonamides (Antibiotic); Translations: [SULFA (SULFONAMIDE ANTIBIOTICS)] Drug Allergy 4 Unknown, Swelling, Rash [facility] (13 sources) Sulfur Drug Allergy [address] [facility] (1 source) Morphine Drug Allergy 6 [facility] (1 source) Sulfonamides (Antibiotic) Drug allergy (disorder) 6 [facility] Medications Current Medications Medication Drug Class(es) Dates Sig (Normalized) Sig (Original) acetaminophen 325 mg / HYDROcodone bitartrate 5 mg oral tablet (15 sources) Opioid Agonist Start: 11-29-2023 End: 12-29-2023 take 1 tablet by mouth four times daily as needed for pain HYDROcodone-aceta minophen ([place]) 5-325 MG tablet Indications: DDD (degenerative disc disease), lumbar Take 1 tablet by mouth 4 (four) times a day as needed for severe pain or moderate pain 120 tablet 0 11/29/2023 12/29/2023 Active Start: 03-01-2017 take 1 tablet by ely th every six hours as needed HYDROcodone-acetaminophen (NORCO) 5-325 mg per tablet Take 1 tablet by mouth every 6 hours as needed. 0 03/01/2017 Active Comment on above: Take 1 tablet by ely th every 6 hours as needed. [id number] 200 actuat albuterol 0.09 mg/actuat metered dose inhaler (13 sources) beta2-Adrenergic Agonist Start: take 2 puff(s) by inhalation every four hours as needed VENTOLIN HFA 90 mcg/actuation inhaler Inhale 2 Puffs as instructed every 4 hours as needed. 0 02/13/2017 Active Comment on above: Inhale 2 Puffs as in structed every 4 hours as needed. aspirin 81 mg delayed release oral tablet (15 sources) Platelet Aggregation Inhibitor, Nonsteroidal Anti-inflammatory Drug take 1 tablet by mouth once daily aspirin, enteric coated (ASPIRIN, ENTERIC COATED) 81 mg EC tablet Take 81 mg by mouth once daily. 0 Active Comment on above: Take 81 mg by mouth once daily. atorvastatin 20 mg oral tablet (15 sources) HMG-CoA Reductase Inhibitor Start: 017 take 1 tablet by mouth once daily at bedtime atorvastatin (LIPITOR) 20 mg tablet Take 20 mg by mouth daily at bedtime. 3 03/25/2017 Active Comment on above: Take 20 mg by mouth daily at bedtime. busPIRone hydrochloride 7.5 mg oral tablet (13 sources) Start: 021 take 1 tablet by mouth twice daily busPIRone (BUSPAR) 7.5 mg tablet Take 7.5 mg by mouth twice daily. 0 11/03/2020 Active Comment on above: Take 7.5 mg by mouth twice daily. celecoxib 100 mg oral capsule (2 sources) Nonsteroidal Anti-inflammatory Drug Start: 023 take 1 capsule by mouth in the morning celecoxib (CeleBREX) 100 MG capsule Indications: Lumbar spondylosis Take 1 capsule (100 mg) by mouth in the morning and 1 capsule (100 mg) before bedtime. 30 capsule 5 10/22/2023 Active gabapentin 100 mg oral capsule (6 sources) Anti-epileptic Agent take 2 capsules by mouth three times daily gabapentin (NEURONTIN) 100 mg capsule gabapentin 100 mg capsule TAKE 2 CAPSULES BY MOUTH THREE TIMES DAILY 0 Active Comment on above: gabapentin 100 mg ca psule TAKE 2 CAPSULES BY MOUTH THREE TIMES DAILY hydroxyurea 500 mg oral capsule (15 sources) Antimetabolite hydroxyurea (HYDREA) 500 mg capsule Take 500 mg by mouth once daily. Patient takes 500 mg daily except 1000 mg on Wednesday, Wednesday and Fridays as of 08/20/2021 0 Active Comment on above: Take 500 mg by mouth once daily. Patient takes 500 mg daily except 1000 mg on Wednesday, Wednesday and Fridays as of 08/20/2021 24 hr isosorbide mononitrate 60 mg extended release oral tablet (15 sources) Nitrate Vasodilator take 1 tablet by mouth once daily, then take 1 tablet by mouth every twenty-four hours isosorbide mononitrate ER (IMDUR) 60 mg 24 hr tablet Take 60 mg by mouth once daily. 0 Active take 1 tablet by ely th every twenty-four hours in the morning isosorbide mononitrate ER (Imdur) 60 MG 24 hr tablet Take 1 tablet by mouth in the morning. 0 Active Comment on above: Take 60 mg by mouth once daily. lisinopril 5 mg oral tablet (15 sources) Angiotensin Converting Enzyme Inhibitor take 1 tablet by mouth once daily lisinopril (ZESTRIL, PRINIVIL) 5 mg tablet Take 5 mg by mouth once daily. 0 Active Comment on above: Take 5 mg by mouth o nce daily. meloxicam 15 mg oral tablet (13 sources) Nonsteroidal Anti-inflammatory Drug take 1 tablet by mouth once daily meloxicam (MOBIC) 15 mg tablet Take 15 mg by mouth once daily. 0 Active Comment on above: Take 15 mg by mouth once daily. metoprolol tartrate 25 mg oral tablet (15 sources) beta-Adrenergic [place] Start: 7 metoprolol tartrate, short acting, (LOPRESSOR) 25 mg tablet Take 12.5 mg by mouth twice daily. 3 03/25/2017 Active take 1 tablet by mouth in the mo rning metoprolol tartrate (Lopressor) 25 MG tablet Take 1 tablet by mouth in the morning and 1 tablet before bedtime. 0 Active Comment on above: Take 12.5 mg by mout h twice daily. nystatin 100 unt/mg topical powder (13 sources) Polyene Antifungal Start: 08-31-20 18 nystatin (NYSTOP) powder Apply 1 application to affected area four times daily. 60 g 5 08/31/2018 Active Comment on above: Apply 1 application to affected area four times daily. omeprazole 40 mg delayed release oral capsule (13 sources) Proton Pump Inhibitor Start: 04-29-20 17 take 1 capsule by mouth once daily Omeprazole 40 mg capsule Take 40 mg by mouth once daily. 5 04/29/2017 Active Comment on above: Take 40 mg by mouth once daily. ondansetron 4 mg disintegrating oral tablet (14 sources) Serotonin-3 Receptor Antagonist Start: 10-21-20 22 take 1 tablet by mouth every six hours as needed ondansetron orally disintegrating (ZOFRAN ODT) 4 mg disintegrating tablet TAKE 1 TABLET BY MOUTH EVERY 6 (SIX) HOURS NEEDED 0 10/21/2022 Active Start: 12-21-2017 End: 12-17-2022 take 1 tablet by mouth once daily as needed for nausea ondansetron (ZOFRAN) 8 mg tablet Take 1 tablet by mouth once daily as needed for Nausea/Vomiting. 30 tablet 2 12/21/2017 12/17/2022 Discontinued (Duplicate Entry) Comment on above: Take 1 tablet by ely th once daily as needed for Nausea/Vomiting. TAKE 1 TABLET BY ELY TH EVERY 6 (SIX) HOURS NEEDED pantoprazole 40 mg delayed release oral tablet (15 sources) Proton Pump Inhibitor take 1 tablet by mouth once daily pantoprazole DR (PROTONIX) 40 mg tablet pantoprazole 40 mg tablet,delayed release Take 1 tablet every day by oral route. 0 Active Comment on above: pantoprazole 40 mg t ablet,delayed release Take 1 tablet every day by oral route. PARoxetine hydrochloride 40 mg oral tablet (17 sources) Serotonin Reuptake Inhibitor Start: 2022 take 1 tablet by mouth once daily PARoxetine (Paxil) 40 MG tablet Indications: Depression, unspecified (CMS/HCC) TAKE 1 TABLET BY MOUTH DAILY 90 tablet 3 10/15/2023 Active Comment on above: Take 40 mg by mouth once daily. 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 Hydrocortisone 120mg, 30 ml Nystatin 100,000 Unit/ml Susp, 30 ml Lidocaine viscous 2%, QS 240ml of Diphenhydramine Elixir 12.5mg/5ml. Label bottle Shake Well 240 mL 0 08/19/2020 Active Comment on above: Swish and swallow 1 tsp 4 times daily as needed. Hydrocortisone 120mg, 30 ml Nystatin 100,000 Unit/ml Susp, 30 ml Lidocaine viscous 2%, QS 240ml of Diphenhydramine Elixir 12.5mg/5ml. Label bottle Shake Well Problems Active Problems Problem Classification Problem Date Documented Date Episodic/Chronic Complication of device; implant or graft (2 sources) Pain; Translations: [Pain due to other internal prosthetic devices, implants and grafts, initial encounter] 12-01-2023 Episodic Coronary atherosclerosis and other heart disease (3 sources) Atherosclerotic heart disease of [place] coronary artery without angina pectoris; Translations: [ASHD MARY'S IGLOO CA W/O ANGINA PECTORIS] Onset: 01-27-2023 Chronic Coronary atherosclerosis and other heart disease (2 sources) Coronary angioplasty status; Translations: [Coronary angioplasty status] Onset: 02-19-2023 Episodic Deficiency and other anemia (20 sources) Megaloblastic anemia due to vitamin B>12< deficiency; Translations: [Other megaloblastic anemias, not elsewhere classified] Onset: 09-02-2018 Episodic Disorders of lipid metabolism (2 sources) Mixed hyperlipidemia; Translations: [Mixed hyperlipidemia] Onset: 02-19-2023 Chronic Diverticulosis and diverticulitis (1 source) Diverticulosis of large intestine without perforation or abscess without bleeding; Translations: [DVRTCLOS LG INT NO PERF/ABSC W/O BL] Onset: 05-12-2022 Chronic Essential hypertension (4 sources) Essential (primary) hypertension; Translations: [ESSENTIAL PRIMARY HYPERTENSION] Onset: 01-25-2023 Chronic Hypertension with complications and secondary hypertension (2 sources) Hypertensive heart disease without heart failure; Translations: [Hypertensive heart disease without heart failure] Onset: 02-19-2023 Chronic Neoplasms of unspecified nature or uncertain behavior (19 sources) Essential thrombocythemia; Translations: [Essential (hemorrhagic) thrombocythemia] Onset: 06-08-2016 Chronic Other aftercare (5 sources) 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; Translations: [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 CURRENT DRUG THERAPY] Onset: 05-07-2022 Episodic Other connective tissue disease (1 source) Presence of left artificial hip joint; Translations: [Presence of left artificial hip joint] Onset: 12-21-2023 Chronic Other non-traumatic joint disorders (2 sources) Hip pain; Translations: [Pain in left hip] 12-01-2023 Episodic Other non-traumatic joint disorders (1 source) Pain in left hip; Translations: [Pain in left hip] Onset: 12-15-2023 Episodic Residual codes; unclassified (1 source) Pain, unspecified; Translations: [Pain, unspecified] Onset: 01-05-2024 Episodic Residual codes; unclassified (1 source) Other specified postprocedural states; Translations: [Other specified postprocedural states] Onset: 12-16-2023 Episodic Residual codes; unclassified (1 source) Presence of other specified devices; Translations: [Presence of other specified devices] Onset: 12-15-2023 Episodic Spondylosis; intervertebral disc disorders; other back problems (1 source) Spondylosis without myelopathy or radiculopathy, lumbar region; Translations: [SPONDYLS W/O MYELO-/RADICULOP LUMB] Onset: 05-12-2022 Chronic Past or Other Problems Problem Classification Problem Date Documented Da te Episodic/Chronic Abdominal pain (1 source) Generalized abdominal pain; Translations: [GENERALIZED ABDOMINAL PAIN] Onset: 05-12-2022 Episodic Calculus of urinary tract (1 source) Calculus of kidney; Translations: [CALCULUS OF KIDNEY] Onset: 05-12-2022 Episodic Deficiency and other anemia (15 sources) Iron deficiency anemia; Translations: [Iron deficiency anemia, unspecified] Onset: 12-21-2017 12-21-2017 Episodic Genitourinary symptoms and ill-defined conditions (6 sources) Other microscopic hematuria; Translations: [Personal history of urinary (tract) infections] Onset: 03-17-2022 Episodic Headache; including migraine (13 sources) Bilateral headache; Translations: [Bilateral headaches] Onset: 01-18-2018 01-18-2018 Episodic Nonmalignant breast conditions (5 sources) Unspecified lump in unspecified breast; Translations: [Mastodynia] Onset: 02-09-2022 Episodic Other aftercare (1 source) 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; Translations: [PENITENTIARY CURRENT USE OF ASPIRIN] Onset: 08-25-2022 Episodic Other bone disease and musculoskeletal deformities (14 sources) Osteopenia; Translations: [Other specified disorders of bone density and structure, multiple sites] Onset: 07-08-2017 Episodic Other fractures (1 source) Collapsed vertebra, not elsewhere classified, lumbar region, initial encounter for fracture; Translations: [COLLAPSED VERT NEC LUMBAR INIT ENC] Onset: 05-12-2022 Episodic Other non-epithelial cancer of skin (13 sources) Basal cell carcinoma of nose; Translations: [Basal cell carcinoma of skin of nose] Onset: 06-08-2016 06-08-2016 Episodic Residual codes; unclassified (4 sources) Disorientation, unspecified; Translations: [DISORIENTATION UNSPECIFIED] Onset: 08-24-2022 Episodic Residual codes; unclassified (1 source) Altered mental status, unspecified; Translations: [ALTERED MENTAL STATUS UNSPECIFIED] Onset: 08-25-2022 Episodic Screening and history of mental health and substance abuse codes (1 source) Personal history of nicotine dependence; Translations: [PERSONAL HISTORY OF NICOTINE DEPEND] Onset: 08-24-2022 Episodic Urinary tract infections (4 sources) Urinary tract infection, site not specified; Translations: [UTI SITE NOT SPECIFIED] Onset: 07-28-2022 Episodic Results Test Name Value Interpretation Reference Range Facility [facility] 04-04-2024 CNPN Telephone (HEMASA) JOSEFA CASTILLO ([id number]) 1940 F Date Time Provider Department 04/04/24 ROD ROMAN During your visit today, we recorded the following information about you: Janeth Bright MA 04/04/2024 10:32 AM Signed Patient has an appt on 04/17/24. Would you like labs-her labs are , please place orders. Janeth Bright MA Allergies As of Date: 04/04/2024 Noted Allergy Reaction MORPHINE 10/10/2014 16 - Unknown Comments: ? 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] Order(s):LACTATE DEHYDROGENASE [SQLD6] Order #: [id number] FUTURE COMPLETE BLOOD COUNT AND DIFFERENTIAL [SQCBCDIF] Order #: [id number] FUTURE COMPREHENSIVE METABOLIC PANEL [SQCMP] Order #: [id number] FUTURE Prescriptions as of 04/04/2024 - QUEtiapine (SEROQUEL) 25 mg tablet TAKE 1 TABLET BY MOUTH NIGHTLY - gabapentin (NEURONTIN) 100 mg capsule gabapentin 100 mg capsule TAKE 2 CAPSULES BY MOUTH THREE TIMES DAILY - ondansetron orally disintegrating (ZOFRAN ODT) 4 mg disintegrating tablet TAKE 1 TABLET BY MOUTH EVERY 6 (SIX) HOURS NEEDED - busPIRone (BUSPAR) 7.5 mg tablet Take 7.5 mg by mouth twice daily. - lisinopril (ZESTRIL, PRINIVIL) 5 mg tablet Take 5 mg by mouth once daily. - tetracycline, nystatin, hydrocortisone, diphenhydrAMINE MAGIC MOUTHWASH SUSPENSION Swish and swallow 1 tsp 4 times daily as needed. Hydrocortisone 120mg, 30 ml Nystatin 100,000 Unit/ml Susp, 30 ml Lidocaine viscous 2%, QS 240ml of Diphenhydramine Elixir 12.5mg/5ml. Label bottle Shake Well - meloxicam (MOBIC) 15 mg tablet Take 15 mg by mouth once daily. - nystatin (NYSTOP) powder Apply 1 application to affected area four times daily. - pantoprazole DR (PROTONIX) 40 mg tablet pantoprazole 40 mg tablet,delayed release Take 1 tablet every day by oral route. - VENTOLIN HFA 90 mcg/actuation inhaler Inhale 2 Puffs as instructed every 4 hours as needed. - atorvastatin (LIPITOR) 20 mg tablet Take 20 mg by mouth daily at bedtime. - HYDROcodone-acetaminop hen (NORCO) 5-325 mg per tablet Take 1 tablet by mouth every 6 hours as needed. - metoprolol tartrate, short acting, (LOPRESSOR) 25 mg tablet Take 12.5 mg by mouth twice daily. - Omeprazole 40 mg capsule Take 40 mg by mouth once daily. - hydroxyurea (HYDREA) 500 mg capsule Take 500 mg by mouth once daily. Patient takes 500 mg daily except 1000 mg on Wednesday, Wednesday and Fridays as of 08/20/2021 - PARoxetine (PAXIL) 40 mg tablet Take 40 mg by mouth once daily. - isosorbide mononitrate ER (IMDUR) 60 mg 24 hr tablet Take 60 mg by mouth once daily. - aspirin, enteric coated (ASPIRIN, ENTERIC COATED) 81 mg EC tablet Take 81 mg by mouth once daily. Problem List As Of Date 04/04/2024 Noted Resolved Basal cell carcinoma of nose [C44.311] 06/08/2016 Essential thrombocythemia (HCC) [D47.3] 06/08/2016 Osteopenia [M85.80] 07/08/2017 Iron deficiency anemia [D50.9] 12/21/2017 Bilateral headaches [R51.9] 01/18/2018 Megaloblastic anemia due to vitamin B12 deficie*09/02/2018 Encounter Status:Closed by ROD ROMAN on 04/04/24 Normal [facility] XR HIP LEFT (2-3 VIEWS)on XR HIP LEFT (2-3 VIEWS) History: 83-year-old female status post left hip arthroplasty Comparison: 01/05/2024 Findings: 2 views of the left hip (AP/lateral) in a skeletally mature patient showing redemonstration of left total hip arthroplasty in unchanged position/alignment when compared to prior radiographs. Interval callus formation about lesser trochanteric fragment. No subluxations or dislocations noted. Impression: Stable left hip arthroplasty in unchanged alignment. Interpreted by: Aristeo George DO Signed by: Aristeo George DO 02/23/24 Final result Normal [facility] XR HIP 2-3 VW W PELVIS LEFTo n 01-07-2024 XR HIP 2-3 VW W PELVIS LEFT History: 83-year-old female status post left hip arthroplasty Comparison: December 17, 2023 Findings: AP pelvis and 2 views of the left hip (AP/lateral) in a skeletally mature patient showing redemonstration of left total hip arthroplasty with unchanged position/alignment when compared to prior films. No subluxations or dislocations noted. Lesser trochanteric nonunion once again redemonstrated. Bone cement noted within lumbar spine. Lumbar spine degenerative changes. Impression: Stable left hip arthroplasty Interpreted by: Aristeo George DO Signed by: Aristeo George DO 01/07/24 Final result Normal [facility] XR HIP 2-3 VW W PELVIS LEFTo n 12-29-2023 XR HIP 2-3 VW W PELVIS LEFT History: 83-year-old female with left hip pain Comparison: None Findings: AP pelvis and 2 views of the left hip (AP/lateral) in a skeletally mature patient showing orthopedic hardware in the form of lag screw and sideplate to left proximal femur. Hardware cut out within femoral head with residual displacement of fracture. Moderate arthritic changes bilateral hips. [place] present proximal to greater trochanter consistent with remote fracture. 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 Basophil 0.00 k/uL Normal 0.00-0.20 [facility] Comment on above: Performed By: #### C DP #### [place] [address] Radiator Cleaner: Ti Willis MD Abs.Imm.Granulocyte 0.10 k/uL Normal 0.00-0.30 [facility] Comment on above: Performed By: #### C DP #### [place] [address] Radiator Cleaner: Ti Willis MD Abs.Neutrophil (Seg) 6.92 k/uL Normal 1.50-8.10 [facility] Comment on above: Performed By: #### C DP #### [place] [address] Radiator Cleaner: Ti Willis MD Basophils/100 WBC (Bld) 0 % Normal 0-2 [facility] Comment on above: Performed By: #### C DP #### [place] [address] Radiator Cleaner: Ti Willis MD Eosinophils (Bld) [#/Vol] 0.10 10*3/uL Normal 0.00-0.44 [facility] Comment on above: Performed By: #### C DP #### [address] [address] Radiator Cleaner: Ti Willis MD Eosinophils/100 WBC (Bld) 1 % Normal 1-4 [facility] Comment on above: Performed By: #### C DP #### [address] [address] Radiator Cleaner: Ti Willis MD Immature granulocytes/100 WBC (Bld) 1 % High 0 [facility] Comment on above: Performed By: #### C DP #### [address] [address] Radiator Cleaner: Ti Willis MD Lymphocytes (Bld) [#/Vol] 1.43 10*3/uL Normal 1.10-3.70 [facility] Comment on above: Performed By: #### C DP #### [address] [address] Radiator Cleaner: Ti Willis MD Lymphocytes/100 WBC (Bld) 15 % Low 24-43 [facility] Comment on above: Performed By: #### C DP #### [address] [address] Radiator Cleaner: Ti Willis MD Monocytes (Bld) [#/Vol] 0.95 10*3/uL Normal 0.10-1.20 [facility] Comment on above: Performed By: #### C DP #### [address] [address] Radiator Cleaner: Ti Willis MD Monocytes/100 WBC (Bld) 10 % Normal 3-12 [facility] Comment on above: Performed By: #### C DP #### [address] [address] Radiator Cleaner: Ti Willis MD Morphology Juni (Bld) [Interp] ANISOCYTOSIS PRESENT Normal [facility] Comment on above: Result Comment: MACR OCYTOSIS PRESENT Performed By: #### C DP #### [address] [address] Radiator Cleaner: Ti Willis MD Neutrophil (Seg) 73 % High 36-65 [facility] Comment on above: Performed By: #### C DP #### [address] [address] Radiator Cleaner: Ti Willis MD Erythrocyte distribution width (RBC) [Ratio] 18.4 % High 11.8-14.4 [facility] Comment on above: Performed By: #### C DP #### [address] [address] Radiator Cleaner: Ti Willis MD Hematocrit (Bld) [Volume fraction] 26.4 % Low 36.3-47.1 [facility] Comment on above: Performed By: #### C DP #### [address] [address] Radiator Cleaner: Ti Willis MD Hemoglobin (Bld) [Mass/Vol] 8.5 g/dL Low 11.9-15.1 [facility] Comment on above: Performed By: #### C DP #### [address] [address] Radiator Cleaner: Ti Willis MD MCH (RBC) [Entitic mass] 40.3 pg High 25.2-33.5 [facility] Comment on above: Performed By: #### C DP #### [address] [address] Radiator Cleaner: Ti Willis MD MCHC (RBC) [Mass/Vol] 32.2 g/dL Normal 28.4-34.8 [facility] Comment on above: Performed By: #### C DP #### [address] [address] Radiator Cleaner: Ti Willis MD MCV (RBC) [Entitic vol] 125.1 fL High 82.6-102.9 [facility] Comment on above: Performed By: #### C DP #### [address] [address] Radiator Cleaner: Ti Willis MD NRBC Automated 0.0 per 100 WBC Normal 0.0 [facility] Comment on above: Performed By: #### C DP #### [address] [address] Radiator Cleaner: Ti Willis MD Platelet mean volume (Bld) [Entitic vol] 10.6 fL Normal 8.1-13.5 [facility] Comment on above: Performed By: #### C DP #### [address] [address] Radiator Cleaner: Ti Willis MD Platelets (Bld) [#/Vol] 454 10*3/uL High 138-453 [facility] Comment on above: Performed By: #### C DP #### [address] [address] Radiator Cleaner: Ti Willis MD RBC (Bld) [#/Vol] 2.11 10*6/uL Low 3.95-5.11 [facility] Comment on above: Performed By: #### C DP #### [address] [address] Radiator Cleaner: Ti Willis MD WBC (Bld) [#/Vol] 9.5 10*3/uL Normal 3.5-11.3 [facility] Comment on above: Performed By: #### C DP #### [address] [address] Radiator Cleaner: Ti Willis MD B12/Folate Panelon Cobalamin (Vitamin B12) [Mass/Vol] 295 pg/mL Normal 232-1245 [facility] Comment on above: Performed By: #### W BK, WBCL, CVHH, WBNA, ABG, LACTIC, IOCAL, GLUO #### [address] [address] Radiator Cleaner: Ti Willis MD Folic Acid 5.6 ng/mL Normal >4.8 [facility] Comment on above: Performed By: #### W BK, WBCL, CVHH, WBNA, ABG, LACTIC, IOCAL, GLUO #### [address] [address] Radiator Cleaner: Ti Willis MD CBC with Diffon 12-21-2023 Abs. Basophil 0.00 k/uL Normal 0.00-0.20 [facility] Comment on above: Performed By: #### W BK, WBCL, CVHH, WBNA, ABG, LACTIC, IOCAL, GLUO #### [address] [address] Radiator Cleaner: Ti Willis MD Abs.Imm.Granulocyte 0.11 k/uL Normal 0.00-0.30 [facility] Comment on above: Performed By: #### W BK, WBCL, CVHH, WBNA, ABG, LACTIC, IOCAL, GLUO #### [facility] [address] [place] [address] Radiator Cleaner: Ti Willis MD Abs.Neutrophil (Seg) 8.96 k/uL High 1.50-8.10 [facility] Comment on above: Performed By: #### W BK, WBCL, CVHH, WBNA, ABG, LACTIC, IOCAL, GLUO #### [address] [address] Radiator Cleaner: Ti Willis MD Basophils/100 WBC (Bld) 0 % Normal 0-2 [facility] Comment on above: Performed By: #### W BK, WBCL, CVHH, WBNA, ABG, LACTIC, IOCAL, GLUO #### [address] [address] Radiator Cleaner: Ti Willis MD Eosinophils (Bld) [#/Vol] 0.11 10*3/uL Normal 0.00-0.44 [facility] Comment on above: Performed By: #### W BK, WBCL, CVHH, WBNA, ABG, LACTIC, IOCAL, GLUO #### [address] [address] Radiator Cleaner: Ti Willis MD Eosinophils/100 WBC (Bld) 1 % Normal 1-4 [facility] Comment on above: Performed By: #### W BK, WBCL, CVHH, WBNA, ABG, LACTIC, IOCAL, GLUO #### [address] [address] Radiator Cleaner: Ti Willis MD Immature granulocytes/100 WBC (Bld) 1 % High 0 [facility] Comment on above: Performed By: #### W BK, WBCL, CVHH, WBNA, ABG, LACTIC, IOCAL, GLUO #### [address] [address] Radiator Cleaner: Ti Willis MD Lymphocytes (Bld) [#/Vol] 1.12 10*3/uL Normal 1.10-3.70 [facility] Comment on above: Performed By: #### W BK, WBCL, CVHH, WBNA, ABG, LACTIC, IOCAL, GLUO #### [address] [address] Radiator Cleaner: Ti Willis MD Lymphocytes/100 WBC (Bld) 10 % Low 24-43 [facility] Comment on above: Performed By: #### W BK, WBCL, CVHH, WBNA, ABG, LACTIC, IOCAL, GLUO #### [address] [phone] Radiator Cleaner: Ti Willis MD Monocytes (Bld) [#/Vol] 0.90 10*3/uL Normal 0.10-1.20 [facility] Comment on above: Performed By: #### W BK, WBCL, CVHH, WBNA, ABG, LACTIC, IOCAL, GLUO #### [address] [id number] Radiator Cleaner: Ti Willis MD Monocytes/100 WBC (Bld) 8 % Normal 3-12 [facility] Comment on above: Performed By: #### W BK, WBCL, CVHH, WBNA, ABG, LACTIC, IOCAL, GLUO #### [address] [id number] Radiator Cleaner: Ti Willis MD Morphology Juni (Bld) [Interp] ANISOCYTOSIS PRESENT Normal [facility] Comment on above: Result Comment: MACR OCYTOSIS PRESENT Performed By: #### W BK, WBCL, CVHH, WBNA, ABG, LACTIC, IOCAL, GLUO #### [address] [address] Radiator Cleaner: Ti Willis MD Neutrophil (Seg) 80 % High 36-65 [facility] Comment on above: Performed By: #### W BK, WBCL, CVHH, WBNA, ABG, LACTIC, IOCAL, GLUO #### [address] [id number] Radiator Cleaner: Ti Willis MD Erythrocyte distribution width (RBC) [Ratio] 18.4 % High 11.8-14.4 [facility] Comment on above: Performed By: #### W BK, WBCL, CVHH, WBNA, ABG, LACTIC, IOCAL, GLUO #### [address] [address] Radiator Cleaner: Ti Willis MD Hematocrit (Bld) [Volume fraction] 24.4 % Low 36.3-47.1 [facility] Comment on above: Performed By: #### W BK, WBCL, CVHH, WBNA, ABG, LACTIC, IOCAL, GLUO #### [address] [id number] Radiator Cleaner: Ti Willis MD Hemoglobin (Bld) [Mass/Vol] 7.9 g/dL Low 11.9-15.1 [facility] Comment on above: Performed By: #### W BK, WBCL, CVHH, WBNA, ABG, LACTIC, IOCAL, GLUO #### [place] [address] Radiator Cleaner: Ti Willis MD MCH (RBC) [Entitic mass] 40.5 pg High 25.2-33.5 [facility] Comment on above: Performed By: #### W BK, WBCL, CVHH, WBNA, ABG, LACTIC, IOCAL, GLUO #### [place] [id number] Radiator Cleaner: Ti Willis MD MCHC (RBC) [Mass/Vol] 32.4 g/dL Normal 28.4-34.8 [facility] Comment on above: Performed By: #### W BK, WBCL, CVHH, WBNA, ABG, LACTIC, IOCAL, GLUO #### [address] [address] Radiator Cleaner: Ti Willis MD MCV (RBC) [Entitic vol] 125.1 fL High 82.6-102.9 [facility] Comment on above: Performed By: #### W BK, WBCL, CVHH, WBNA, ABG, LACTIC, IOCAL, GLUO #### [address] [address] Radiator Cleaner: Ti Willis MD NRBC Automated 0.0 per 100 WBC Normal 0.0 [facility] Comment on above: Performed By: #### W BK, WBCL, CVHH, WBNA, ABG, LACTIC, IOCAL, GLUO #### [address] [address] Radiator Cleaner: Ti Willis MD Platelet mean volume (Bld) [Entitic vol] 10.7 fL Normal 8.1-13.5 [facility] Comment on above: Performed By: #### W BK, WBCL, CVHH, WBNA, ABG, LACTIC, IOCAL, GLUO #### [address] [address] Radiator Cleaner: Ti Willis MD Platelets (Bld) [#/Vol] 366 10*3/uL Normal 138-453 [facility] Comment on above: Performed By: #### W BK, WBCL, CVHH, WBNA, ABG, LACTIC, IOCAL, GLUO #### [address] [address] Radiator Cleaner: Ti Willis MD RBC (Bld) [#/Vol] 1.95 10*6/uL Low 3.95-5.11 [facility] Comment on above: Performed By: #### W BK, WBCL, CVHH, WBNA, ABG, LACTIC, IOCAL, GLUO #### [address] [address] Radiator Cleaner: Ti Willis MD WBC (Bld) [#/Vol] 11.2 10*3/uL Normal 3.5-11.3 [facility] Comment on above: Performed By: #### W BK, WBCL, CVHH, WBNA, ABG, LACTIC, IOCAL, GLUO #### [address] [address] Radiator Cleaner: Ti Willis MD TSH w/reflex to FT4on 2023 Thyroid Stim. Horm. 3.24 uIU/mL Normal 0.30-5.[address] [facility] Comment on above: Performed By: #### C DP #### [address] [address] Radiator Cleaner: Ti Willis MD Basic Metab w/rfx MGon 12-20 Anion gap [Moles/Vol] 10 mmol/L Normal 9-17 [facility] Comment on above: Performed By: #### C DP #### [address] [address] Radiator Cleaner: Ti Willis MD Calcium [Mass/Vol] 8.0 mg/dL Low 8.6-10.4 [facility] Comment on above: Performed By: #### C DP #### [address] [address] Radiator Cleaner: Ti Willis MD Chloride [Moles/Vol] 100 mmol/L Normal 98-107 [facility] Comment on above: Performed By: #### C DP #### [address] [address] Radiator Cleaner: Ti Willis MD CO2 [Moles/Vol] 25 mmol/L Normal 20-31 [facility] Comment on above: Performed By: #### C DP #### [address] [address] Radiator Cleaner: Ti Willis MD Creatinine [Mass/Vol] 0.7 mg/dL Normal 0.5-0.9 [facility] Comment on above: Performed By: #### C DP #### [facility] [address] [place] [address] Radiator Cleaner: Ti Willis MD GFR/1.73 sq M.predicted among non-blacks MDRD (S/P/Bld) [Vol rate/Area] mL/min/{1.73_m2} Normal >60 [facility] Comment on above: Result Comment: These results are not intended for use in patients <18 years of age. eGFR results are calculated without a race factor using the 2020 CKD-EPI equation. Careful clinical correlation is recommended, particularly when comparing to results calculated using previous equations. The CKD-EPI equation is less accurate in patients with extremes of muscle mass, extra-renal metabolism of creatine, excessive creatine ingestion, or following therapy that affects renal tubular secretion. Performed By: #### C DP #### [address] [address] Radiator Cleaner: Ti Willis MD Glucose [Mass/Vol] 104 mg/dL High 70-99 [facility] Comment on above: Performed By: #### C DP #### [facility] [address] [place] [address] Radiator Cleaner: Ti Willis MD Potassium [Moles/Vol] 4.1 mmol/L Normal 3.7-5.3 [facility] Comment on above: Performed By: #### C DP #### [facility] [address] [place] [address] Radiator Cleaner: Ti Willis MD Sodium [Moles/Vol] 135 mmol/L Normal 135-144 [facility] Comment on above: Performed By: #### C DP #### [facility] [address] [place] [address] Radiator Cleaner: Ti Willis MD Urea nitrogen [Mass/Vol] 21 mg/dL Normal 8-23 [facility] Comment on above: Performed By: #### C DP #### [facility] [address] [place] [address] Radiator Cleaner: Ti Willis MD CBCon 12-20-2023 Erythrocyte distribution width (RBC) [Ratio] 18.5 % High 11.8-14.4 [facility] Comment on above: Performed By: #### C DP #### [address] [address] Radiator Cleaner: Ti Willis MD Hematocrit (Bld) [Volume fraction] 24.4 % Low 36.3-47.1 [facility] Comment on above: Performed By: #### C DP #### [address] [address] Radiator Cleaner: Ti Willis MD Hemoglobin (Bld) [Mass/Vol] 8.1 g/dL Low 11.9-15.1 [facility] Comment on above: Performed By: #### C DP #### [address] [address] Radiator Cleaner: Ti Willis MD MCH (RBC) [Entitic mass] 40.7 pg High 25.2-33.5 [facility] Comment on above: Performed By: #### C DP #### [address] [address] Radiator Cleaner: Ti Willis MD MCHC (RBC) [Mass/Vol] 33.2 g/dL Normal 28.4-34.8 [facility] Comment on above: Performed By: #### C DP #### [address] [address] Radiator Cleaner: Ti Willis MD MCV (RBC) [Entitic vol] 122.6 fL High 82.6-102.9 [facility] Comment on above: Performed By: #### C DP #### [address] [address] Radiator Cleaner: Ti Willis MD NRBC Automated 0.0 per 100 WBC Normal 0.0 [facility] Comment on above: Performed By: #### C DP #### [place] [address] Radiator Cleaner: Ti Willis MD Platelet mean volume (Bld) [Entitic vol] 10.6 fL Normal 8.1-13.5 [facility] Comment on above: Performed By: #### C DP #### [address] [address] Radiator Cleaner: Ti Willis MD Platelets (Bld) [#/Vol] 356 10*3/uL Normal 138-453 [facility] Comment on above: Performed By: #### C DP #### [address] [address] Radiator Cleaner: Ti Willis MD RBC (Bld) [#/Vol] 1.99 10*6/uL Low 3.95-5.11 [facility] Comment on above: Performed By: #### C DP #### [address] [address] Radiator Cleaner: Ti Willis MD WBC (Bld) [#/Vol] 10.3 10*3/uL Normal 3.5-11.3 [facility] Comment on above: Performed By: #### C DP #### [address] [address] Radiator Cleaner: Ti Willis MD Cult,Urineon 12-19-2023 Cult,Urine Specimen Description .INDWELLING CATH URINE Special Requests FIRST INSERTION Culture ESCHERICHIA COLI >100,000 CFU/ML Report Status FINAL 12/18/2023 SUSCEPTIBILITY Organism ESCHERICHIA COLI Method AURELIANO Ampicillin 4 SUSCEPTIBLE Cefazolin <=4 SUSCEPTIBLE Cefazolin sensitivity results can be used to predict the effectiveness of oral cephalosporins (eg. Cephalexin) in uncomplicated Urinary Tract Infections due to E. coli, K. pneumoniae, and P. mirabilis Ceftriaxone <=0.25 SUSCEPTIBLE ESBL NEGATIVE Gentamicin <=1 SUSCEPTIBLE Levofloxacin <=0.12 SUSCEPTIBLE Nitrofurantoin <=16 SUSCEPTIBLE Piperacillin/Tazobacta m <=4 SUSCEPTIBLE Tobramycin <=1 SUSCEPTIBLE Trimethoprim/Sulfa <=20 SUSCEPTIBLE Susceptible [facility] Comment on above: Performed By: #### C DP #### [facility] [address] [place] [address] Radiator Cleaner: Ti Willis MD OPERATIVE REPORTon OPERATIVE REPORT [address] [address] OPERATIVE REPORT PATIENT NAME: JOSEFA CASTILLO : 1940 MED REC NO: [id number] ROOM: 0235 ACCOUNT NO: [id number] ADMIT DATE: 12/15/2023 PROVIDER: Aristeo George DATE OF PROCEDURE: 12/17/2023 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 POSTOPERATIVE DIAGNOSIS: Failed hardware left proximal femur. PROCEDURE: Conversion of prior hip surgery to left total hip arthroplasty. SURGEON: Aristeo George DO CARPENTER BRIDGE: Edgar Middleton MD, PGY-2, MD, PGY-4, and Rosalio Bailey DO, PGY-1 ANESTHESIA: General. ESTIMATED BLOOD LOSS: 375 mL. FLUIDS: 1500 mL crystalloid, 500 mL albumin, and 250 mL of Cell Saver. COMPLICATIONS: None. SPECIMENS: Obtained a clean-catch Joe urine sample. IMPLANTS: DePuy RECLAIM Monobloc size 14, DePuy size 54 cup with a 28-mm bipolar dual-mobility head. FINDINGS: Failed left DHS with screw cut out. INDICATIONS This is an 83-year-old female who presented to my clinic on Wednesday for reevaluation of left hip pain. She has a history of left hip intertrochanteric femur fracture for which she underwent placement of dynamic hip screw. This screw subsequently cut out and the patient had minimal ability to ambulate. I discussed with the patient need for operative intervention in the form of conversion of prior hip surgery to total hip arthroplasty to allow early mobility and decrease risk of morbidity/mortality. The patient was amenable to this. Consent was obtained and placed in the chart. All questions were answered appropriately. Surgical risks including not limited to bleeding, blood clots, infection, damage to nearby tissues, vessels and nerves, wound healing complications, failure of procedure, stiffness, loss of motion, hardware failure, hardware irritation, malunion, nonunion, anesthesia risk, loss of limb, loss of life, leg length inequality, and dislocation all discussed with the patient. Knowing these risks, the patient wished to proceed with surgery as indicated. OPERATIVE PROCEDURE: The patient was taken to the operative suite and placed under general anesthesia without any complications. 2 gm of Ancef was given prior to the procedure. At this time, all team members paused to identify proper patient name, indications, site and allergies. All team members were in agreeance. The patient was placed in lateral decubitus position. Axillary roll was placed. All bony prominences were well padded. Left lower extremity was prepped and draped in normal sterile fashion. Using a marking pen, we mapped our incision to perform a direct lateral approach to the left hip. Skin was incised, dissection was carried down through the skin, subcutaneous tissues. IT band was split longitudinally in line with its fibers. We then split the gluteus medius with anterior one-third extending down to the vastus lateralis. We took the anterior one third of the proximal femur in one . The prior placed hardware was visualized, 4 screws distally as well as a lag screw and plate were removed without any complication. We then externally rotated the hip exposing the femoral neck. 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 Neck cut was performed. The residual neck was removed. The acetabulum was visualized. Labrum was debrided appropriately. We then began with reaming of her acetabulum. We started with a size 45 and ended with a size 53. 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 We then trialed the size 54 cup which had good fit. We then placed our DePuy size 54 cup. We then drilled and placed three screws, two of which had excellent fixation, one of which had some fixation within the acetabulum. We did use Cerament bone void filler and backfilled the bone cyst within the acetabular defect. We then placed our dual-mobility liner and then proceeded to begin with our femoral component. Box osteotome was introduced followed by canal finder. We then sequentially reamed by hand until size 14 had excellent fit. We then reamed the proximal segment, trialed with various version. Leg length was assessed and deemed stable. We then dislocated the hip. Trial implants were removed, thoroughly irrigated the wound with normal saline. Gloves were exchanged. We then placed our DePuy monoblock size 14 stem in the appropriate version. The dual-mobility head was reduced and leg lengths and stability were once again assessed and deemed very stable with equal leg lengths. Final images were taken with fluoroscopy. Being satisfied, we irrigated with normal saline once again as well as Irrisept solution. We placed antibiotic powder in the form of vancomycin and tobramycin powder. We closed the capsule layer using #5 Ethibond. We closed the fascial layer using 0 PDS, deep dermal layers with 2-0 Baldwin (more content not included)... Normal [facility] Arterial Blood Gaseson 12-17 Ellis Test INFORMATION NOT PROVIDED [facility] Comment on above: Performed By: #### W BK, WBCL, CVHH, WBNA, ABG, LACTIC, IOCAL, GLUO #### [facility] [address] [place] [address] Radiator Cleaner: Ti Willis MD Body Temp. 36.0 [facility] Comment on above: Performed By: #### W BK, WBCL, CVHH, WBNA, ABG, LACTIC, IOCAL, GLUO #### [facility] [address] [place] [address] Radiator Cleaner: Ti Willis MD Carboxy Hgb 1.1 % Normal 0-5 [facility] Comment on above: Result Comment: Reference Range: Non-Smokers 0-2% Average Smoker 2-4% Heavy Smoker <10% Performed By: #### W BK, WBCL, CVHH, WBNA, ABG, LACTIC, IOCAL, GLUO #### [facility] [address] [place] [address] Radiator Cleaner: Ti Willis MD FIO2 60 [facility] Comment on above: Performed By: #### W BK, WBCL, CVHH, WBNA, ABG, LACTIC, IOCAL, GLUO #### [address] [address] Radiator Cleaner: Ti Willis MD HCO3 (Bld) [Moles/Vol] 23.4 mmol/L Normal 22-27 [facility] Comment on above: Performed By: #### W BK, WBCL, CVHH, WBNA, ABG, LACTIC, IOCAL, GLUO #### [address] [address] Radiator Cleaner: Ti Willis MD Negative Base Excess 0.3 mmol/L Normal 0.0-2.0 [facility] Comment on above: Performed By: #### W BK, WBCL, CVHH, WBNA, ABG, LACTIC, IOCAL, GLUO #### [address] [address] Radiator Cleaner: Ti Willis MD Oxygen (Bld) [Partial pressure] 237.0 mm[Hg] High 75-95 [facility] Comment on above: Performed By: #### W BK, WBCL, CVHH, WBNA, ABG, LACTIC, IOCAL, GLUO #### [address] [address] Radiator Cleaner: Ti Willis MD Oxygen saturation in Blood 98.3 % Normal 94-100 [facility] Comment on above: Performed By: #### W BK, WBCL, CVHH, WBNA, ABG, LACTIC, IOCAL, GLUO #### [address] [address] Radiator Cleaner: Ti Willis MD pCO2 36.8 mmHg Normal 32-45 [facility] Comment on above: Performed By: #### W BK, WBCL, CVHH, WBNA, ABG, LACTIC, IOCAL, GLUO #### [facility] [address] [place] [address] Radiator Cleaner: iT Willis MD pH (Bld) 7.418 [pH] Normal 7.350-7.450 [facility] Comment on above: Performed By: #### W BK, WBCL, CVHH, WBNA, ABG, LACTIC, IOCAL, GLUO #### [address] [address] Radiator Cleaner: Ti Willis MD CV Hgb/Hcton 5 Hematocrit (Bld) [Volume fraction] 35.4 % Low 36.3-47.1 [facility] Comment on above: Performed By: #### W BK, WBCL, CVHH, WBNA, ABG, LACTIC, IOCAL, GLUO #### [address] [address] Radiator Cleaner: Ti Willis MD Hemoglobin (Bld) [Mass/Vol] 11.5 g/dL Low 11.9-15.1 [facility] Comment on above: Performed By: #### W BK, WBCL, CVHH, WBNA, ABG, LACTIC, IOCAL, GLUO #### [facility] [address] [place] [address] Radiator Cleaner: Ti Willis MD Calcium, Ionicon 12-17-2023 Calcium [Moles/Vol] 1.14 mmol/L Normal 1.13-1.[address] [facility] Comment on above: Performed By: #### W BK, WBCL, CVHH, WBNA, ABG, LACTIC, IOCAL, GLUO #### [facility] [address] [place] [address] Radiator Cleaner: Ti Willis MD Chloride - Whole Blon 2023 Chloride [Moles/Vol] 106 mmol/L Normal 98-110 [facility] Comment on above: Performed By: #### W BK, WBCL, CVHH, WBNA, ABG, LACTIC, IOCAL, GLUO #### [facility] [address] [place] [phone] Radiator Cleaner: Ti Willis MD FLUORO FOR SURGICAL PROCEDUR ESon 12-17-2023 FLUORO FOR SURGICAL PROCEDURES Radiology exam is complete. No Radiologist dictation. Please follow up with ordering provider. Final result Normal [facility] Glucose,Whole Bloodon 2023 Glucose [Mass/Vol] 101 mg/dL Normal 65-105 [facility] Comment on above: Performed By: #### W BK, WBCL, CVHH, WBNA, ABG, LACTIC, IOCAL, GLUO #### [facility] [address] [place] [address] [phone] Radiator Cleaner: Ti Willis MD Lactic Acidon 12-17-2023 Lactic Acid,Whole Bl 2.2 mmol/L High 0.7-2.1 [facility] Comment on above: Performed By: #### W BK, WBCL, CVHH, WBNA, ABG, LACTIC, IOCAL, GLUO #### [facility] [address] [place] [phone] Radiator Cleaner: Ti Willis MD Potassium - Whole Blon 12-17 Potassium [Moles/Vol] 3.3 mmol/L Low 3.6-5.0 [facility] Comment on above: Performed By: #### W BK, WBCL, CVHH, WBNA, ABG, LACTIC, IOCAL, GLUO #### [facility] [address] [place] [address] [id number] Radiator Cleaner: Ti Willis MD Sodium - Whole Bloodon 12-17 Sodium [Moles/Vol] 137 mmol/L Normal 136-145 [facility] Comment on above: Performed By: #### W BK, WBCL, CVHH, WBNA, ABG, LACTIC, IOCAL, GLUO #### [employer] [address] [place] [address] Radiator Cleaner: Ti Willis MD Type + Screenon 12-17-2023 Type + Screen Sample Expiration 12/20/2023,2359 Arm Band Number [id number] ABO/Rh(D) A POSITIVE Antibody Screen NEGATIVE Unit Number [id number] Blood Component Type Leukocyte Reduced Red Cell Unit Division 00 Status of Unit REL FROM ALLOC Transfusion Status OK TO TRANSFUSE Crossmatch Result COMPATIBLE Unit Number [id number] Blood Component Type Leukocyte Reduced Red Cell Unit Division 00 Status of Unit REL FROM ALLOC Transfusion Status OK TO TRANSFUSE Crossmatch Result COMPATIBLE Normal [facility] Comment on above: Performed By: #### C DP #### [facility] [address] [place] [address] Radiator Cleaner: Ti Willis MD XR HIP 2-3 VW W PELVIS LEFTo n 12-17-2023 XR HIP 2-3 VW W PELVIS LEFT EXAMINATION: ONE XRAY VIEW OF THE PELVIS AND TWO XRAY VIEWS LEFT HIP 12/17/2023 11:33 am COMPARISON: 12/15/2023 imaging HISTORY: ORDERING SYSTEM PROVIDED HISTORY: Left hip HWR with RENALDO, in PACU TECHNOLOGIST PROVIDED HISTORY: Left hip HWR with RENALDO, in PACU AP right hip, AP pelvis, crosstable lateral FINDINGS: Removal of prior surgical plate from ORIF with new left total hip arthroplasty. Orthopedic hardware appears to be in good position and alignment. Extensive edema overlying the operative site. Pelvis intact. Moderate degenerative change of the visualized right hip. IMPRESSION: New surgical change of left total hip arthroplasty. Expected postoperative appearance. Interpreted by: Nitin Magana IV, MD Signed by: Nitin Magana IV, MD 12/17/23 Final result Normal [facility] CBC with Diffon 12-16-2023 Abs. Basophil 0.05 k/uL Normal 0.00-0.20 [facility] Comment on above: Performed By: #### C DP #### [facility] [address] [place] [address] Radiator Cleaner: Ti Willis MD Abs.Imm.Granulocyte 0.00 k/uL Normal 0.00-0.30 [facility] Comment on above: Performed By: #### C DP #### [address] [address] Radiator Cleaner: Ti Willis MD Abs.Neutrophil (Seg) 2.52 k/uL Normal 1.50-8.10 [facility] Comment on above: Performed By: #### C DP #### [address] [address] Radiator Cleaner: Ti Willis MD Basophils/100 WBC (Bld) 1 % Normal 0-2 [facility] Comment on above: Performed By: #### C DP #### [address] [address] Radiator Cleaner: Ti Willis MD Eosinophils (Bld) [#/Vol] 0.09 10*3/uL Normal 0.00-0.44 [facility] Comment on above: Performed By: #### C DP #### [address] [address] Radiator Cleaner: Ti Willis MD Eosinophils/100 WBC (Bld) 2 % Normal 1-4 [facility] Comment on above: Performed By: #### C DP #### [address] [address] Radiator Cleaner: Ti Willis MD Immature granulocytes/100 WBC (Bld) 0 % Normal 0 [facility] Comment on above: Performed By: #### C DP #### [address] [address] Radiator Cleaner: Ti Willis MD Lymphocytes (Bld) [#/Vol] 1.43 10*3/uL Normal 1.10-3.70 [facility] Comment on above: Performed By: #### C DP #### [address] [address] Radiator Cleaner: Ti Willis MD Lymphocytes/100 WBC (Bld) 31 % Normal 24-43 [facility] Comment on above: Performed By: #### C DP #### [address] [address] Radiator Cleaner: Ti Willis MD Monocytes (Bld) [#/Vol] 0.51 10*3/uL Normal 0.10-1.20 [facility] Comment on above: Performed By: #### C DP #### [address] [address] Radiator Cleaner: Ti Willis MD Monocytes/100 WBC (Bld) 11 % Normal 3-12 [facility] Comment on above: Performed By: #### C DP #### [address] [address] Radiator Cleaner: Ti Willis MD Morphology Juni (Bld) [Interp] ANISOCYTOSIS PRESENT Normal [facility] Comment on above: Result Comment: MACR OCYTOSIS PRESENT Performed By: #### C DP #### [address] [address] Radiator Cleaner: Ti Willis MD Neutrophil (Seg) 55 % Normal 36-65 [facility] Comment on above: Performed By: #### C DP #### [address] [address] Radiator Cleaner: Ti Willis MD Erythrocyte distribution width (RBC) [Ratio] 19.2 % High 11.8-14.4 [facility] Comment on above: Performed By: #### C DP #### [address] [address] Radiator Cleaner: Ti Willis MD Hematocrit (Bld) [Volume fraction] 36.2 % Low 36.3-47.1 [facility] Comment on above: Performed By: #### C DP #### [address] [address] Radiator Cleaner: Ti Willis MD Hemoglobin (Bld) [Mass/Vol] 11.9 g/dL Normal 11.9-15.1 [facility] Comment on above: Performed By: #### C DP #### [address] [address] Radiator Cleaner: Ti Willis MD MCH (RBC) [Entitic mass] 39.5 pg High 25.2-33.5 [facility] Comment on above: Performed By: #### C DP #### [place] [address] Radiator Cleaner: Ti Willis MD MCHC (RBC) [Mass/Vol] 32.9 g/dL Normal 28.4-34.8 [facility] Comment on above: Performed By: #### C DP #### [address] [address] Radiator Cleaner: Ti Willis MD MCV (RBC) [Entitic vol] 120.3 fL High 82.6-102.9 [facility] Comment on above: Performed By: #### C DP #### [place] [address] Radiator Cleaner: Ti Willis MD NRBC Automated 0.0 per 100 WBC Normal 0.0 [facility] Comment on above: Performed By: #### C DP #### [place] [address] Radiator Cleaner: Ti Willis MD Platelet mean volume (Bld) [Entitic vol] 10.1 fL Normal 8.1-13.5 [facility] Comment on above: Performed By: #### C DP #### [place] [address] Radiator Cleaner: Ti Willis MD Platelets (Bld) [#/Vol] 361 10*3/uL Normal 138-453 [facility] Comment on above: Performed By: #### C DP #### [address] [address] Radiator Cleaner: Ti Willis MD RBC (Bld) [#/Vol] 3.01 10*6/uL Low 3.95-5.11 [facility] Comment on above: Performed By: #### C DP #### [address] [address] Radiator Cleaner: Ti Willis MD WBC (Bld) [#/Vol] 4.6 10*3/uL Normal 3.5-11.3 [facility] Comment on above: Performed By: #### C DP #### [address] [address] Radiator Cleaner: Ti Willis MD Basic Metabolic Profon 12-15 Anion gap [Moles/Vol] 12 mmol/L Normal 9-17 [facility] Comment on above: Performed By: #### C DP #### [address] [address] Radiator Cleaner: Ti Willis MD Calcium [Mass/Vol] 9.0 mg/dL Normal 8.6-10.4 [facility] Comment on above: Performed By: #### C DP #### [address] [address] Radiator Cleaner: Ti Willis MD Chloride [Moles/Vol] 100 mmol/L Normal 98-107 [facility] Comment on above: Performed By: #### C DP #### [address] [address] Radiator Cleaner: Ti Willis MD CO2 [Moles/Vol] 24 mmol/L Normal 20-31 [facility] Comment on above: Performed By: #### C DP #### [address] [address] Radiator Cleaner: Ti Willis MD Creatinine [Mass/Vol] 0.6 mg/dL Normal 0.5-0.9 [facility] Comment on above: Performed By: #### C DP #### [address] [address] Radiator Cleaner: Ti Willis MD GFR/1.73 sq M.predicted among non-blacks MDRD (S/P/Bld) [Vol rate/Area] mL/min/{1.73_m2} Normal >60 [facility] Comment on above: Result Comment: These results are not intended for use in patients <18 years of age. eGFR results are calculated without a race factor using the 2020 CKD-EPI equation. Careful clinical correlation is recommended, particularly when comparing to results calculated using previous equations. The CKD-EPI equation is less accurate in patients with extremes of muscle mass, extra-renal metabolism of creatine, excessive creatine ingestion, or following therapy that affects renal tubular secretion. Performed By: #### C DP #### [address] [address] Radiator Cleaner: Ti Willis MD Glucose [Mass/Vol] 88 mg/dL Normal 70-99 [facility] Comment on above: Performed By: #### C DP #### [address] [address] Radiator Cleaner: Ti Willis MD Potassium [Moles/Vol] 4.0 mmol/L Normal 3.7-5.3 [facility] Comment on above: Performed By: #### C DP #### [address] [address] Radiator Cleaner: Ti Willis MD Sodium [Moles/Vol] 136 mmol/L Normal 135-144 [facility] Comment on above: Performed By: #### C DP #### [address] [address] Radiator Cleaner: Ti Willis MD Urea nitrogen [Mass/Vol] 10 mg/dL Normal 8-23 [facility] Comment on above: Performed By: #### C DP #### [address] [address] Radiator Cleaner: Ti Willis MD CBC with Diffon 12-15-2023 Abs. Basophil 0.12 k/uL Normal 0.0-0.2 [facility] Comment on above: Performed By: #### C DP #### [address] [address] Radiator Cleaner: Ti Willis MD Abs.Imm.Granulocyte 0.00 k/uL Normal 0.00-0.30 [facility] Comment on above: Performed By: #### C DP #### [address] [address] Radiator Cleaner: Ti Willis MD Abs.Neutrophil (Seg) 3.85 k/uL Normal 1.8-7.7 [facility] Comment on above: Performed By: #### C DP #### [address] [address] Radiator Cleaner: Ti Willis MD Basophils/100 WBC (Bld) 2 % Normal 0-2 [facility] Comment on above: Performed By: #### C DP #### [address] [address] Radiator Cleaner: Ti Willis MD Eosinophils (Bld) [#/Vol] 0.12 10*3/uL Normal 0.0-0.4 [facility] Comment on above: Performed By: #### C DP #### [address] [address] Radiator Cleaner: Ti Willis MD Eosinophils/100 WBC (Bld) 2 % Normal 1-4 [facility] Comment on above: Performed By: #### C DP #### [address] [address] Radiator Cleaner: Ti Willis MD Immature granulocytes/100 WBC (Bld) 0 % Normal 0 [facility] Comment on above: Performed By: #### C DP #### [address] [address] Radiator Cleaner: Ti Willis MD Lymphocytes (Bld) [#/Vol] 1.49 10*3/uL Normal 1.0-4.8 [facility] Comment on above: Performed By: #### C DP #### [address] [address] Radiator Cleaner: Ti Willis MD Lymphocytes/100 WBC (Bld) 24 % Normal 24-44 [facility] Comment on above: Performed By: #### C DP #### [address] [address] Radiator Cleaner: Ti Willis MD Monocytes (Bld) [#/Vol] 0.62 10*3/uL Normal 0.1-0.8 [facility] Comment on above: Performed By: #### C DP #### [address] [address] Radiator Cleaner: Ti Willis MD Monocytes/100 WBC (Bld) 10 % High 1-7 [facility] Comment on above: Performed By: #### C DP #### [address] [address] Radiator Cleaner: Ti Willis MD Morphology Juni (Bld) [Interp] ANISOCYTOSIS PRESENT Normal [facility] Comment on above: Result Comment: MACR OCYTOSIS PRESENT Performed By: #### C DP #### [address] [address] Radiator Cleaner: Ti Willis MD Neutrophil (Seg) 62 % Normal 36-66 [facility] Comment on above: Performed By: #### C DP #### [address] [address] Radiator Cleaner: Ti Willis MD Erythrocyte distribution width (RBC) [Ratio] 18.8 % High 11.8-14.4 [facility] Comment on above: Performed By: #### C DP #### [address] [address] Radiator Cleaner: Ti Willis MD Hematocrit (Bld) [Volume fraction] 41.1 % Normal 36.3-47.1 [facility] Comment on above: Performed By: #### C DP #### [address] [address] Radiator Cleaner: Ti Willis MD Hemoglobin (Bld) [Mass/Vol] 13.9 g/dL Normal 11.9-15.1 [facility] Comment on above: Performed By: #### C DP #### [address] [address] Radiator Cleaner: Ti Willis MD MCH (RBC) [Entitic mass] 40.5 pg High 25.2-33.5 [facility] Comment on above: Performed By: #### C DP #### [address] [address] Radiator Cleaner: Ti Willis MD MCHC (RBC) [Mass/Vol] 33.8 g/dL Normal 28.4-34.8 [facility] Comment on above: Performed By: #### C DP #### [address] [address] Radiator Cleaner: Ti Willis MD MCV (RBC) [Entitic vol] 119.8 fL High 82.6-102.9 [facility] Comment on above: Performed By: #### C DP #### [address] [address] Radiator Cleaner: Ti Willis MD NRBC Automated 0.0 per 100 WBC Normal 0.0 [facility] Comment on above: Performed By: #### C DP #### [address] [address] Radiator Cleaner: Ti Willis MD Platelet mean volume (Bld) [Entitic vol] 9.7 fL Normal 8.1-13.5 [facility] Comment on above: Performed By: #### C DP #### [address] [address] Radiator Cleaner: Ti Willis MD Platelets (Bld) [#/Vol] 426 10*3/uL Normal 138-453 [facility] Comment on above: Performed By: #### C DP #### [address] [address] Radiator Cleaner: Ti Willis MD RBC (Bld) [#/Vol] 3.43 10*6/uL Low 3.95-5.11 [facility] Comment on above: Performed By: #### C DP #### [address] [address] Radiator Cleaner: Ti Willis MD WBC (Bld) [#/Vol] 6.2 10*3/uL Normal 3.5-11.3 [facility] Comment on above: Performed By: #### C DP #### [address] [address] Radiator Cleaner: Ti Willis MD PTon 12-15-2023 INR Coag (PPP) [Relative time] 1.1 {INR} Normal [facility] Comment on above: Result Comment: Therapeutic Range: Moderate Anticoagulant Intensity: INR = 2.0-3.0 High Anticoagulant Intensity: INR = 2.5-3.5 Performed By: #### C DP #### [employer] [address] [place] [address] Radiator Cleaner: Ti Willis MD PT Coag (PPP) [Time] 13.6 s Normal 11.7-14.9 [facility] Comment on above: Performed By: #### C DP #### [employer] [address] [place] [address] Radiator Cleaner: Ti Willis MD Vitamin D 25 OHon 12-15-2023 Vitamin D 25 [place] 14.1 ng/mL Low >29.9 [facility] Comment on above: Result Comment: Reference Range: Vitamin D status Range Deficiency <20 ng/mL Mild Deficiency 20-30 ng/mL Sufficiency 30-100 ng/mL Toxicity >100 ng/mL Performed By: #### C DP #### [employer] [address] [place] [address] Radiator Cleaner: Ti Willis MD XR FEMUR LEFT (MIN 2 VIEWS)o n 12-15-2023 XR FEMUR LEFT (MIN 2 VIEWS) EXAMINATION: 4 XRAY VIEWS OF THE LEFT FEMUR 12/15/2023 6:24 pm COMPARISON: None. HISTORY: ORDERING SYSTEM PROVIDED HISTORY: Trauma/Fracture TECHNOLOGIST PROVIDED HISTORY: Trauma/Fracture FINDINGS: There are postsurgical changes related to surgical fixation of a proximal left femur fracture with lateral plate and screws in place. Hardware appears intact. No periprosthetic lucency. Age-indeterminate fracture lucency is present within the proximal left femur involving the femoral neck and greater and lesser trochanters. Normal alignment at the left hip and knee joints. Soft tissues are unremarkable. IMPRESSION: Postsurgical changes related to surgical fixation of a proximal left femur fracture. Age-indeterminate fracture lucency is present within the proximal left femur involving the femoral neck and greater and lesser trochanters. This could be further evaluated with CT as clinically warranted. Interpreted by: Africa Colin MD Signed by: Africa Colin MD 12/15/23 Final result Normal [facility] CBC W Auto Differential pane l (Bld)on 07-29-2023 Basophils (Bld) [#/Vol] 0.07 10*3/uL Normal <0.11 [facility] Comment on above: Order Comment: Speci men Type: BLOOD SPECIMEN Ordering Facility: [facility] Address: [address] [place] [address] Performed By: #### 5 7021-8 #### [facility] CLIA [id number] [address] [place] [address] Basophils/100 WBC (Bld) 0.9 % Normal [facility] Comment on above: Order Comment: Speci men Type: BLOOD SPECIMEN Ordering Facility: [facility] Address: [address] [place] [address] Performed By: #### 5 7021-8 #### [facility] CLIA [id number] [address] [place] [address] Differential cell count method Nom (Bld) Auto Normal [facility] Comment on above: Order Comment: Speci men Type: BLOOD SPECIMEN Ordering Facility: [facility] Address: [address] [place] [address] Performed By: #### 5 7021-8 #### [facility] CLIA [id number] [address] [place] [address] Eosinophils (Bld) [#/Vol] 0.12 10*3/uL Normal <0.46 [facility] Comment on above: Order Comment: Speci men Type: BLOOD SPECIMEN Ordering Facility: [facility] Address: [address] [place] [address] Performed By: #### 5 7021-8 #### [facility] CLIA [id number] [address] [place] [address] Eosinophils/100 WBC (Bld) 1.6 % Normal [facility] Comment on above: Order Comment: Speci men Type: BLOOD SPECIMEN Ordering Facility: [facility] Address: [address] [address] Performed By: #### 5 7021-8 #### [facility] CLIA [id number] [address] [place] [address] Erythrocyte distribution width (RBC) [Ratio] 14.0 % Normal 11.5-15.0 [facility] Comment on above: Order Comment: Speci men Type: BLOOD SPECIMEN Ordering Facility: [facility] Address: [address] [address] Performed By: #### 5 7021-8 #### [facility] CLIA [id number] [address] [place] [address] Hematocrit (Bld) [Volume fraction] 41.4 % Normal 36.0-46.0 [facility] Comment on above: Order Comment: Speci men Type: BLOOD SPECIMEN Ordering Facility: [facility] Address: [address] [address] Performed By: #### 5 7021-8 #### [facility] CLIA [id number] [address] [place] [address] Hemoglobin (Bld) [Mass/Vol] 13.6 g/dL Normal 11.5-15.5 [facility] Comment on above: Order Comment: Speci men Type: BLOOD SPECIMEN Ordering Facility: [facility] Address: [address] [address] Performed By: #### 5 7021-8 #### [facility] CLIA [id number] [address] [place] [address] Immature granulocytes (Bld) [#/Vol] 0.03 10*3/uL Normal <0.10 [facility] Comment on above: Order Comment: Speci men Type: BLOOD SPECIMEN Ordering Facility: [facility] Address: [address] [address] Performed By: #### 5 7021-8 #### [facility] CLIA [id number] [address] [place] [address] Immature granulocytes/100 WBC (Bld) 0.4 % Normal [facility] Comment on above: Order Comment: Speci men Type: BLOOD SPECIMEN Ordering Facility: [facility] Address: [address] [address] Performed By: #### 5 7021-8 #### [facility] CLIA [id number] [address] [place] [address] Lymphocytes (Bld) [#/Vol] 1.84 10*3/uL Normal 1.00-4.00 [facility] Comment on above: Order Comment: Speci men Type: BLOOD SPECIMEN Ordering Facility: [facility] Address: [address] [address] Performed By: #### 5 7021-8 #### [facility] CLIA [id number] [address] [place] [address] Lymphocytes/100 WBC (Bld) 24.6 % Normal [facility] Comment on above: Order Comment: Speci men Type: BLOOD SPECIMEN Ordering Facility: [facility] Address: [address] [address] Performed By: #### 5 7021-8 #### [facility] CLIA [id number] [address] [place] [address] MCH (RBC) [Entitic mass] 38.1 pg High 26.0-34.0 [facility] Comment on above: Order Comment: Speci men Type: BLOOD SPECIMEN Ordering Facility: [facility] Address: [address] [address] Performed By: #### 5 7021-8 #### [facility] CLIA [id number] [address] [place] [address] MCHC (RBC) [Mass/Vol] 32.9 g/dL Normal 30.5-36.0 [facility] Comment on above: Order Comment: Speci men Type: BLOOD SPECIMEN Ordering Facility: [facility] Address: [address] [address] Performed By: #### 5 7021-8 #### [facility] CLIA [id number] [address] [place] [address] MCV (RBC) [Entitic vol] 116.0 fL High 80.0-100.0 [facility] Comment on above: Order Comment: Speci men Type: BLOOD SPECIMEN Ordering Facility: [facility] Address: [address] [place] [address] Performed By: #### 5 7021-8 #### [facility] CLIA [id number] [address] [place] [address] Monocytes (Bld) [#/Vol] 0.64 10*3/uL Normal <0.87 [facility] Comment on above: Order Comment: Speci men Type: BLOOD SPECIMEN Ordering Facility: [facility] Address: [address] [place] [address] Performed By: #### 5 7021-8 #### [facility] CLIA [id number] [address] [place] [address] Monocytes/100 WBC (Bld) 8.6 % Normal [facility] Comment on above: Order Comment: Speci men Type: BLOOD SPECIMEN Ordering Facility: [facility] Address: [address] [place] [address] Performed By: #### 5 7021-8 #### [facility] CLIA [id number] [address] [place] [address] Neutrophils (Bld) [#/Vol] 4.77 10*3/uL Normal 1.45-7.50 [facility] Comment on above: Order Comment: Speci men Type: BLOOD SPECIMEN Ordering Facility: [facility] Address: [address] [place] [address] Performed By: #### 5 7021-8 #### [facility] CLIA [id number] [address] [place] [address] Neutrophils/100 WBC (Bld) 63.9 % Normal [facility] Comment on above: Order Comment: Speci men Type: BLOOD SPECIMEN Ordering Facility: [facility] Address: [address] [address] Performed By: #### 5 7021-8 #### [facility] CLIA [id number] [address] [place] [address] Nucleated RBC (Bld) [#/Vol] 10*3/uL Normal <0.01 [facility] Comment on above: Order Comment: Speci men Type: BLOOD SPECIMEN Ordering Facility: [facility] Address: [address] [address] Performed By: #### 5 7021-8 #### [facility] CLIA [id number] [address] [place] [address] Nucleated RBC/100 WBC (Bld) [Ratio] 0.0 /100 WBC Normal [facility] Comment on above: Order Comment: Speci men Type: BLOOD SPECIMEN Ordering Facility: [facility] Address: [address] [address] Performed By: #### 5 7021-8 #### [facility] CLIA [id number] [address] [place] [address] Platelet mean volume (Bld) [Entitic vol] 9.8 fL Normal 9.0-12.7 [facility] Comment on above: Order Comment: Speci men Type: BLOOD SPECIMEN Ordering Facility: [facility] Address: [address] [address] Performed By: #### 5 7021-8 #### [facility] CLIA [id number] [address] [place] [address] Platelets (Bld) [#/Vol] 591 10*3/uL High 150-400 [facility] Comment on above: Order Comment: Speci men Type: BLOOD SPECIMEN Ordering Facility: [facility] Address: [address] [address] Performed By: #### 5 7021-8 #### [facility] CLIA [id number] [address] [place] [address] RBC (Bld) [#/Vol] 3.57 10*6/uL Low 3.90-5.20 [facility] Comment on above: Order Comment: Speci men Type: BLOOD SPECIMEN Ordering Facility: [facility] Address: [address] [place], [place] [address] Performed By: #### 5 7021-8 #### [facility] CLIA [id number] [address] [place] [address] WBC (Bld) [#/Vol] 7.47 10*3/uL Normal 3.70-11.00 [facility] Comment on above: Order Comment: Speci men Type: BLOOD SPECIMEN Ordering Facility: [facility] Address: [address] [place], [place] [address] Performed By: #### 5 7021-8 #### [facility] CLIA [id number] [address] [place] [address] [facility] Nurse Visit (HEMASA) JOSEFA CASTILLO ([id number]) 1940 F Date Time Provider Department 07/29/23 10:30 AM [facility]TH[facility] NURSE AYAKA DENT During your visit today, we recorded the following information about you: Temperature Pulse Respiration Blood pressure 97 degrees 63/minute 16/minute 175/71 Weight 57.1 kg Kiera Rey Ma 07/29/2023 10:27 AM Signed Patient Identification confirmed: yes. Injection given and documented on DEC per provider order. Kiera Rey Ma Referring Provider: ROD ROMAN [[id number]] Allergies As of Date: 07/29/2023 Noted Allergy Reaction MORPHINE 10/10/2014 16 - Unknown Comments: ? 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] Order(s):BCN NURSING COMMUNICATION [[id number]] Order #: [id number]: 1 STANDING BCN NURSING COMMUNICATION [[id number]] Order #: [id number]: 1 STANDING BCN NURSING COMMUNICATION [[id number]] Order #: [id number]: 1 STANDING BCN NURSING COMMUNICATION [[id number]] Order #: [id number]: 1 STANDING BCN NURSING COMMUNICATION [[id number]] Order #: [id number]: 1 STANDING [] cyanocobalamin 1,000 mcg injectionDisp: Rfl: NaCl 0.9% iv infusionDisp: Rfl: diphenhydrAMINE 50 mg injection (BENADRYL)Disp: Rfl: hydrocortisone sodium succinate (PF) 100 mg injection (Solu-CORTEF)Disp: Rfl: EPINEPHrine 1 mg/mL (1 mL) 0.3 mg injectionDisp: Rfl: sodium chloride 0.9 % (flush) 10-20 mL (BD POSIFLUSH)Disp: Rfl: heparin 100 unit/mL 500 Units injectionDisp: Rfl: sodium chloride 0.9 % (flush) 10-20 mL (BD POSIFLUSH)Disp: Rfl: Prescriptions as of 07/29/2023 - QUEtiapine (SEROQUEL) 25 mg tablet TAKE 1 TABLET BY MOUTH NIGHTLY - gabapentin (NEURONTIN) 100 mg capsule gabapentin 100 mg capsule TAKE 2 CAPSULES BY MOUTH THREE TIMES DAILY - ondansetron orally disintegrating (ZOFRAN ODT) 4 mg disintegrating tablet TAKE 1 TABLET BY MOUTH EVERY 6 (SIX) HOURS NEEDED - busPIRone (BUSPAR) 7.5 mg tablet Take 7.5 mg by mouth twice daily. - lisinopril (ZESTRIL, PRINIVIL) 5 mg tablet Take 5 mg by mouth once daily. - tetracycline, nystatin, hydrocortisone, diphenhydrAMINE MAGIC MOUTHWASH SUSPENSION Swish and swallow 1 tsp 4 times daily as needed. Hydrocortisone 120mg, 30 ml Nystatin 100,000 Unit/ml Susp, 30 ml Lidocaine viscous 2%, QS 240ml of Diphenhydramine Elixir 12.5mg/5ml. Label bottle Shake Well - meloxicam (MOBIC) 15 mg tablet Take 15 mg by mouth once daily. - nystatin (NYSTOP) powder Apply 1 application to affected area four times daily. - pantoprazole DR (PROTONIX) 40 mg tablet pantoprazole 40 mg tablet,delayed release Take 1 tablet every day by oral route. - VENTOLIN HFA 90 mcg/actuation inhaler Inhale 2 Puffs as instructed every 4 hours as needed. - atorvastatin (LIPITOR) 20 mg tablet Take 20 mg by mouth daily at bedtime. - HYDROcodone-acetaminop hen (NORCO) 5-325 mg per tablet Take 1 tablet by mouth every 6 hours as needed. - metoprolol tartrate, short acting, (LOPRESSOR) 25 mg tablet Take 12.5 mg by mouth twice daily. - Omeprazole 40 mg capsule Take 40 mg by mouth once daily. - hydroxyurea (HYDREA) 500 mg capsule Take 500 mg by mouth once daily. Patient takes 500 mg daily except 1000 mg on Wednesday, Wednesday and Fridays as of 08/20/2021 - PARoxetine (PAXIL) 40 mg tablet Take 40 mg by mouth once daily. - isosorbide mononitrate ER (IMDUR) 60 mg 24 hr tablet Take 60 mg by mouth once daily. - aspirin, enteric coated (ASPIRIN, ENTERIC COATED) 81 mg EC tablet Take 81 mg by mouth once daily. Facility-Administered Medications as of 07/29/2023 - NaCl 0.9% iv infusion - diphenhydrAMINE 50 mg injection (BENADRYL) - hydrocortisone sodium succinate (PF) 100 mg injection (Solu-CORTEF) - EPINEPHrine 1 mg/mL (1 mL) 0.3 mg injection - sodium chloride 0.9 % (flush) 10-20 mL (BD POSIFLUSH) - heparin 100 unit/mL 500 Units injection - sodium chloride 0.9 % (flush) 10-20 mL (BD POSIFLUSH) Problem List As Of Date 07/29/2023 Noted Resolved Basal cell carcinoma of nose [C44.311] 06/08/2016 Essential thrombocythemia (HCC) [D47.3] 06/08/2016 Osteopenia [M85.80] 07/08/2017 Iron deficiency anemia [D50.9] 12/21/2017 Bilateral headaches [R51.9] 01/18/2018 Megaloblastic anemia due to vitamin B12 deficie*09/02/2018 Visit Notes: >> Kiera Rey Ma Jul 29, 2023 10:26 AM Status: Signed Patient Identification confirmed: yes. Injection given and documented on DEC per provider order. Kiera Rey Martha Prescriptions ordered this encounter Disp Refills Start End CYANOCOBALAMIN ( (more content not included)... Normal [facility]SP[facility] 07-29-2023 CNOVSP Visit (SP) Office ([place]) JOSEFA CASTILLO ([id number]) 1940 F Date Time Provider Department 07/29/23 10:15 AM ROD ROMAN During your visit today, we recorded the following information about you: Temperature Pulse Respiration Blood pressure 97.3 degrees 63/minute 16/minute 175/71 Weight 57 kg Rod Roman MD 08/01/2023 3:49 PM Signed NAME: JonathanHardyJosefa CLINIC NO.: [id number] DATE OF SERVICE: July 29, 2023 (Carlos) Some elements in this clinic note that are critical to medical decision making have been carefully reviewed and included from a prior clinic note dated: April 08, 2023 (Carlos) Referring Provider: Tito Hillman MD Additional Clinicians involved in Josefa Castillo's care: CC: Follow up ASSESSMENT: 1. ET: 83 year old woman with essential thrombocythemia. She has been treated with Hydrea since 2001 when she suffered a mini-stroke and was found to have thrombocytosis while living in [place]. She has been on various dosing through the years, but as of the last 5 years, she had consistently been on 500 mg daily. 08/21/2021 she was increased for a brief period of time but then returned to her typical dose of 500 mg daily where she remains. Labs remain stable. Platelet Count (k/uL) Date Value 07/29/2023 591 12/11/2021 473 2. B12 deficiency Will continue with B12 every other month 3. Basal cell ca of right buddhist April 2023 PLAN: Labs to include B12 in 8 weeks. Labs every 8 weeks, CBC, CMP Continue current regimen of Hydrea 500 mg daily Wednesday - Wednesday but increase to 2 tablets (1000 mg) on Saturdays and Sundays) B12 Shot today and every 8 weeks. RTC in 16 weeks HPI: Updated Visit, July 29, 2023: Right buddhist was not a melanoma - basal cell. Labs reviewed and adjusted hydrea on weekends Otherwise is doing very well. Updated Visit, April 08, 2023: Says she's not doing well. 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 Continues B12 shots every 8 weeks Platelets 580 today - a little high but can adjust in future if needed. Updated Visit, December 17, 2022: Doing very well. Labs staying stable. Has skipped B12 because her daughter was very sick and she couldn't get in to the office. Will follow up with neurology for headaches that persist. Updated Visit, July 30, 2022: Josefa is 82 years old and returns today with several issues outside of what we typically see her for. She has been complaining of pain on the left side of head over the buddhist and into the jaw. No vision changes associated with pain. Intermittent and dull and pounding. Right buddhist at the corner of her eye lid is a small scab that may need further evaluation by derm. Would defer to Dr. Hillman. Review of laboratories Feels stable disease on current regimen of Hydrea. Updated Visit, March 05, 2022: Doing well on current regimen of care. No complaints. Continues to benefit from B12 shots. Updated Visit, December 11, 2021: Doing well aside from chronic arthralgias and associated back pain. Labs stable. B12 due today. Updated Visit, September 18, 2021: Josefa is doing very well today and platelets have stabilized on current regimen of hydrea. She has no complaints. Updated Visit, September 04, 2021: Mrs. Castillo returns today for a 2 week follow up. At her previous visit we increased her Hydrea to 500 mg daily except 1000 mg on days Wednesday, Wednesday and Wednesday due to an upward trend of her platelets and a bout of epistaxis. She has tolerated the change in dose and confirmed she is taking it appropriately. She has not had any additional bleeding episodes either. Updated Visit, August 21, 2021: Mrs. Castillo returns for follow up. She has been on Hydrea 500 mg daily for the last 5 years along with daily aspirin. Prior to that, she was on various dosing of hydrea. She has been feeling well. She did have a nose bleed 2 weeks ago that lasted about 10 minutes. No other bleeding. No evidence of clots. No new meds or other medical changes. 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 Counts remain stable and she states she feels a boost of energy whenever she gets her B12 shot. Will continue current plan. 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 She continues to do well but has been having some intermittent chest pain. Dr. Hillman ordered a stress test for the intermittent chest pain and felt that it could be cadiac vs. Reflux. Of note, she quit smoking 08/23/2020. She continues to require vitamin B12 injections and counts remain stable on current dosing of Hydrea. Updated Visit, November 11, 2020: 80 yo woman with ET controlled with hydrea (more content not included)... Normal [facility] Comprehensive metabolic 2000 panelon 07-29-2023 Albumin [Mass/Vol] 4.4 g/dL Normal 3.9-4.9 [facility] Comment on above: Order Comment: Speci men Type: BLOOD SPECIMEN Ordering Facility: [facility] Address: [place] [address] Performed By: #### 2 4323-8, 2532-0 #### [facility] CLIA [id number] [address] [place] [address] 13144 ALP [Catalytic activity/Vol] 60 U/L Normal 34-123 [facility] Comment on above: Order Comment: Speci men Type: BLOOD SPECIMEN Ordering Facility: [facility] Address: [address] [address] Performed By: #### 2 4322-8, 2531-0 #### [facility] CLIA [id number] [address] [place] [address] 26988 ALT [Catalytic activity/Vol] 11 U/L Normal 7-38 [facility] Comment on above: Order Comment: Speci men Type: BLOOD SPECIMEN Ordering Facility: [facility] Address: [address] [address] Performed By: #### 2 8, 2531-0 #### [facility] CLIA [id number] [address] [place] [address] 81885 Anion gap [Moles/Vol] 9 mmol/L Normal 9-18 [facility] Comment on above: Order Comment: Speci men Type: BLOOD SPECIMEN Ordering Facility: [facility] Address: [address] [address] Performed By: #### 2 8, 2531-0 #### [facility] CLIA [id number] [address] [place] [address] 59927 AST [Catalytic activity/Vol] 16 U/L Normal 13-35 [facility] Comment on above: Order Comment: Speci men Type: BLOOD SPECIMEN Ordering Facility: [facility] Address: [address] [address] Performed By: #### 2 8, 2531-0 #### [facility] CLIA [id number] [address] [place] [address] 13859 Bilirubin [Mass/Vol] 0.5 mg/dL Normal 0.2-1.3 [facility] Comment on above: Order Comment: Speci men Type: BLOOD SPECIMEN Ordering Facility: [facility] Address: [address] [address] Performed By: #### 2 8, 2531-0 #### [facility] CLIA [id number] [address] [place] [address] 21565 Calcium [Mass/Vol] 9.4 mg/dL Normal 8.5-10.2 [facility] Comment on above: Order Comment: Speci men Type: BLOOD SPECIMEN Ordering Facility: [facility] Address: [address] [place] [address] Performed By: #### 2 4323-8, 2-0 #### [facility] CLIA [id number] [address] [place] [address] 40491 Chloride [Moles/Vol] 104 mmol/L Normal 97-105 [facility] Comment on above: Order Comment: Speci men Type: BLOOD SPECIMEN Ordering Facility: [facility] Address: [address] [place] [address] Performed By: #### 2 4328, 2531-0 #### [facility] CLIA [id number] [address] [place] [address] 11112 CO2 [Moles/Vol] 27 mmol/L Normal 22-30 [facility] Comment on above: Order Comment: Speci men Type: BLOOD SPECIMEN Ordering Facility: [facility] Address: [address] [place] [address] Performed By: #### 2 4328, 2531-0 #### [facility] CLIA [id number] [address] [place] [address] 58770 Creatinine [Mass/Vol] 1.24 mg/dL High 0.58-0.96 [facility] Comment on above: Order Comment: Speci men Type: BLOOD SPECIMEN Ordering Facility: [facility] Address: [address] [place] [address] Performed By: #### 2 432-8, 2531-0 #### [facility] CLIA [id number] [address] [place] [address] 97431 Creatinine and Glomerular filtration rate.predicted panel (S/P/Bld) 43 mL/min/1.73m??? Low >=60 [facility] Comment on above: Order Comment: Speci men Type: BLOOD SPECIMEN Ordering Facility: [facility] Address: [address] [place] [address] Result Comment: Esmer mated Glomerular Filtration Rate (eGFR) is calculated using the 2020 CKD-EPI creatinine equation. This equation utilizes serum creatinine, sex, and age as parameters. The creatinine assay has traceable calibration to isotope dilution-mass spectrometry. Refer to KDIGO guidelines for clinical interpretation. In patients with unstable renal function, e.g. those with acute kidney injury, the eGFR may not accurately reflect actual GFR. Performed By: #### 2 4323-8, 0 #### [facility] CLIA [id number] [address] [place] [address] 38682 Glucose [Mass/Vol] 114 mg/dL High 74-99 [facility] Comment on above: Order Comment: Quincy pires Type: BLOOD SPECIMEN Ordering Facility: [facility] Address: [address] [phone] Result Comment: The [place] [employer] (ADA) provides guidance for cutoff values for fasting glucose and random glucose. The ADA defines fasting as no caloric intake for at least 8 hours. Fasting plasma glucose results between 100 to 125 mg/dL indicate increased risk for diabetes (prediabetes). Fasting plasma glucose results greater than or equal to 126 mg/dL meet the criteria for diagnosis of diabetes. In the absence of unequivocal hyperglycemia, results should be confirmed by repeat testing. In a patient with classic symptoms of hyperglycemia or hyperglycemic crisis, random plasma glucose results greater than or equal to 200 mg/dL meet the criteria for diagnosis of diabetes. Reference: Standards of Medical Care in Diabetes 2016, [place] [employer]. Diabetes Care. 2016.39(Suppl 1). Performed By: #### 2 4323-8, 0 #### [facility] CLIA [id number] [address] [place] [address] 75664 Potassium [Moles/Vol] 5.0 mmol/L Normal 3.7-5.1 [facility] Comment on above: Order Comment: Quincy pires Type: BLOOD SPECIMEN Ordering Facility: [facility] Address: [address] [phone] Performed By: #### 2 4323-8, 2-0 #### [facility] CLIA [id number] [address] [place] [address] Protein [Mass/Vol] 6.4 g/dL Normal 6.3-8.0 [facility] Comment on above: Order Comment: Speci men Type: BLOOD SPECIMEN Ordering Facility: [facility] Address: [address] [place] [address] Performed By: #### 2 4323-8, 2-0 #### [facility] CLIA [id number] [address] [place] [address] 01960 Sodium [Moles/Vol] 140 mmol/L Normal 136-144 [facility] Comment on above: Order Comment: Kikai pranay Type: BLOOD SPECIMEN Ordering Facility: [facility] Address: [address] [place] [address] Performed By: #### 2 4323-8, 2531-0 #### [facility] CLIA [id number] [address] [place] [address] 78539 Urea nitrogen [Mass/Vol] 18 mg/dL Normal 7-21 [facility] Comment on above: Order Comment: Speci men Type: BLOOD SPECIMEN Ordering Facility: [facility] Address: [address] [place] [address] Performed By: #### 2 4323-8, 2531-0 #### [facility] CLIA [id number] [address] [place] [address] 09129 [facility] LDH [Catalytic activity/Vol] 211 U/L Normal 135-214 [facility] Comment on above: Order Comment: Speci men Type: BLOOD SPECIMEN Ordering Facility: [facility] Address: [address] [place] [address] Result Comment: Hemo lysis present. The origin of the hemolysis, in vitro versus an in vivo hemolytic process, cannot be distinguished via this assay alone. In vitro hemolysis may lead to non-physiological (spurious) elevation in lactate dehydrogenase (LDH) results. The result should be interpreted in context of the clinical setting and other test results. Suggest reorder as clinically indicated. Performed By: #### 2 4323-8, 2532-0 #### [facility] CLIA [id number] [address] [place] [address] 80103 CBC W Auto Differential pane l (Bld)on 04-08-2023 Basophils (Bld) [#/Vol] 0.05 10*3/uL Normal <0.11 [facility] Comment on above: Order Comment: Speci men Type: BLOOD SPECIMEN Ordering Facility: [facility] Address: [address] [address] Performed By: #### 5 7021-8 #### [facility] CLIA [id number] [address] [place] [address] 36596 Basophils/100 WBC (Bld) 0.7 % Normal [facility] Comment on above: Order Comment: Speci men Type: BLOOD SPECIMEN Ordering Facility: [facility] Address: [address] [address] Performed By: #### 5 7021-8 #### [facility] CLIA [id number] [address] [place] [address] 54848 Differential cell count method Nom (Bld) Auto Normal [facility] Comment on above: Order Comment: Speci men Type: BLOOD SPECIMEN Ordering Facility: [facility] Address: [address] [address] Performed By: #### 5 7021-8 #### [facility] CLIA [id number] [address] [place] [address] 42346 Eosinophils (Bld) [#/Vol] 0.10 10*3/uL Normal <0.46 [facility] Comment on above: Order Comment: Speci men Type: BLOOD SPECIMEN Ordering Facility: [facility] Address: [address] [address] Performed By: #### 5 7021-8 #### [facility] CLIA [id number] [address] [place] [address] 38854 Eosinophils/100 WBC (Bld) 1.5 % Normal [facility] Comment on above: Order Comment: Speci men Type: BLOOD SPECIMEN Ordering Facility: [facility] Address: [address] [address] Performed By: #### 5 7021-8 #### [facility] CLIA [id number] [address] [place] [address] 08859 Erythrocyte distribution width (RBC) [Ratio] 13.5 % Normal 11.5-15.0 [facility] Comment on above: Order Comment: Speci men Type: BLOOD SPECIMEN Ordering Facility: [facility] Address: [address] [address] Performed By: #### 5 7021-8 #### [facility] CLIA [id number] [address] [place] [address] 24652 Hematocrit (Bld) [Volume fraction] 40.3 % Normal 36.0-46.0 [facility] Comment on above: Order Comment: Speci men Type: BLOOD SPECIMEN Ordering Facility: [facility] Address: [address] [address] Performed By: #### 5 7021-8 #### [facility] CLIA [id number] [address] [place] [address] 64425 Hemoglobin (Bld) [Mass/Vol] 13.4 g/dL Normal 11.5-15.5 [facility] Comment on above: Order Comment: Speci men Type: BLOOD SPECIMEN Ordering Facility: [facility] Address: [address] [address] Performed By: #### 5 7021-8 #### [facility] CLIA [id number] [address] [place] [address] 69903 Immature granulocytes (Bld) [#/Vol] 10*3/uL Normal <0.10 [facility] Comment on above: Order Comment: Speci men Type: BLOOD SPECIMEN Ordering Facility: [facility] Address: [address] [address] Performed By: #### 5 7021-8 #### [facility] CLIA [id number] [address] [place] [address] Immature granulocytes/100 WBC (Bld) 0.3 % Normal [facility] Comment on above: Order Comment: Speci men Type: BLOOD SPECIMEN Ordering Facility: [facility] Address: [address] [place] [address] Performed By: #### 5 7021-8 #### [facility] CLIA [id number] [address] [place] [address] 71658 Lymphocytes (Bld) [#/Vol] 1.82 10*3/uL Normal 1.00-4.00 [facility] Comment on above: Order Comment: Speci men Type: BLOOD SPECIMEN Ordering Facility: [facility] Address: [address] [place] [address] Performed By: #### 5 7021-8 #### [facility] CLIA [id number] [address] [place] [address] 20122 Lymphocytes/100 WBC (Bld) 26.7 % Normal [facility] Comment on above: Order Comment: Speci men Type: BLOOD SPECIMEN Ordering Facility: [facility] Address: [address] [place] [address] Performed By: #### 5 7021-8 #### [facility] CLIA [id number] [address] [place] [address] 79217 MCH (RBC) [Entitic mass] 40.1 pg High 26.0-34.0 [facility] Comment on above: Order Comment: Speci men Type: BLOOD SPECIMEN Ordering Facility: [facility] Address: [address] [place] [address] Performed By: #### 5 7021-8 #### [facility] CLIA [id number] [address] [place] [address] 29027 MCHC (RBC) [Mass/Vol] 33.3 g/dL Normal 30.5-36.0 [facility] Comment on above: Order Comment: Speci men Type: BLOOD SPECIMEN Ordering Facility: [facility] Address: [address] [address] Performed By: #### 5 7021-8 #### [facility] CLIA [id number] [address] [place] [address] 29736 MCV (RBC) [Entitic vol] 120.7 fL High 80.0-100.0 [facility] Comment on above: Order Comment: Speci men Type: BLOOD SPECIMEN Ordering Facility: [facility] Address: [address] [place] [address] Performed By: #### 5 7021-8 #### [facility] CLIA [id number] [address] [place] [address] 52916 Monocytes (Bld) [#/Vol] 0.56 10*3/uL Normal <0.87 [facility] Comment on above: Order Comment: Speci men Type: BLOOD SPECIMEN Ordering Facility: [facility] Address: [address] [address] Performed By: #### 5 7021-8 #### [facility] CLIA [id number] [address] [place] [address] 75176 Monocytes/100 WBC (Bld) 8.2 % Normal [facility] Comment on above: Order Comment: Speci men Type: BLOOD SPECIMEN Ordering Facility: [facility] Address: [address] [place] [address] Performed By: #### 5 7021-8 #### [facility] CLIA [id number] [address] [place] [address] 65177 Neutrophils (Bld) [#/Vol] 4.27 10*3/uL Normal 1.45-7.50 [facility] Comment on above: Order Comment: Speci men Type: BLOOD SPECIMEN Ordering Facility: [facility] Address: [address] [place] [address] Performed By: #### 5 7021-8 #### [facility] CLIA [id number] [address] [place] [address] 15090 Neutrophils/100 WBC (Bld) 62.6 % Normal [facility] Comment on above: Order Comment: Speci men Type: BLOOD SPECIMEN Ordering Facility: [facility] Address: [address] Performed By: #### 5 7021-8 #### [facility] CLIA [id number] [address] [place] [address] 79661 Nucleated RBC (Bld) [#/Vol] 10*3/uL Normal <0.01 [facility] Comment on above: Order Comment: Speci men Type: BLOOD SPECIMEN Ordering Facility: [facility] Address: [address] Performed By: #### 5 7021-8 #### [facility] CLIA [id number] [address] [place] [address] 03567 Nucleated RBC/100 WBC (Bld) [Ratio] 0.0 /100 WBC Normal [facility] Comment on above: Order Comment: Speci men Type: BLOOD SPECIMEN Ordering Facility: [facility] Address: [address] Performed By: #### 5 7021-8 #### [facility] CLIA [id number] [address] [place] [address] 85198 Platelet mean volume (Bld) [Entitic vol] 9.9 fL Normal 9.0-12.7 [facility] Comment on above: Order Comment: Speci men Type: BLOOD SPECIMEN Ordering Facility: [facility] Address: [address] Performed By: #### 5 7021-8 #### [facility] CLIA [id number] [address] [place] [address] Platelets (Bld) [#/Vol] 580 10*3/uL High 150-400 [facility] Comment on above: Order Comment: Speci men Type: BLOOD SPECIMEN Ordering Facility: [facility] Address: [address] Performed By: #### 5 7021-8 #### [facility] CLIA [id number] [address] [place] [address] RBC (Bld) [#/Vol] 3.34 10*6/uL Low 3.90-5.20 [facility] Comment on above: Order Comment: Speci men Type: BLOOD SPECIMEN Ordering Facility: [facility] Address: [address] [place] [address] Performed By: #### 5 7021-8 #### [facility] CLIA [id number] [address] [place] [address] WBC (Bld) [#/Vol] 6.82 10*3/uL Normal 3.70-11.00 [facility] Comment on above: Order Comment: Speci men Type: BLOOD SPECIMEN Ordering Facility: [facility] Address: [address] [place] [address] Performed By: #### 5 7021-8 #### [facility] CLIA [id number] [address] [place] [address] CNNURSEon 04-08-2023 CNNURSE Nurse Visit (HEMASA) JOSEFA CASTILLO ([id number]) 1940 F Date Time Provider Department 04/08/23 10:30 AM MARTHA NURSE AYAKA DENT During your visit today, we recorded the following information about you: Janeth Bright MA 04/08/2023 11:15 AM Signed Patient Identification confirmed: yes. Injection given and documented on DEC per provider order. Janeth Bright MA Referring Provider: ROD ROMAN [[id number]] Allergies As of Date: 04/08/2023 Noted Allergy Reaction MORPHINE 10/10/2014 16 - Unknown Comments: ? 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 - lisinopril (ZESTRIL, PRINIVIL) 5 mg tablet Take 5 mg by mouth once daily. - tetracycline, nystatin, hydrocortisone, diphenhydrAMINE MAGIC MOUTHWASH SUSPENSION Swish and swallow 1 tsp 4 times daily as needed. Hydrocortisone 120mg, 30 ml Nystatin 100,000 Unit/ml Susp, 30 ml Lidocaine viscous 2%, QS 240ml of Diphenhydramine Elixir 12.5mg/5ml. Label bottle Shake Well - meloxicam (MOBIC) 15 mg tablet Take 15 mg by mouth once daily. - nystatin (NYSTOP) powder Apply 1 application to affected area four times daily. - pantoprazole DR (PROTONIX) 40 mg tablet pantoprazole 40 mg tablet,delayed release Take 1 tablet every day by oral route. - VENTOLIN HFA 90 mcg/actuation inhaler Inhale 2 Puffs as instructed every 4 hours as needed. - atorvastatin (LIPITOR) 20 mg tablet Take 20 mg by mouth daily at bedtime. - HYDROcodone-acetaminop hen (NORCO) 5-325 mg per tablet Take 1 tablet by mouth every 6 hours as needed. - metoprolol tartrate, short acting, (LOPRESSOR) 25 mg tablet Take 12.5 mg by mouth twice daily. - Omeprazole 40 mg capsule Take 40 mg by mouth once daily. - hydroxyurea (HYDREA) 500 mg capsule Take 500 mg by mouth once daily. Patient takes 500 mg daily except 1000 mg on Wednesday, Wednesday and Fridays as of 08/20/2021 - PARoxetine (PAXIL) 40 mg tablet Take 40 mg by mouth once daily. - isosorbide mononitrate ER (IMDUR) 60 mg 24 hr tablet Take 60 mg by mouth once daily. - aspirin, enteric coated (ASPIRIN, ENTERIC COATED) 81 mg EC tablet Take 81 mg by mouth once daily. Facility-Administered Medications as of 04/08/2023 - NaCl 0.9% iv infusion Problem List As Of Date 04/08/2023 Noted Resolved Basal cell carcinoma of nose [C44.311] 06/08/2016 Essential thrombocythemia (HCC) [D47.3] 06/08/2016 Osteopenia [M85.80] 07/08/2017 Iron deficiency anemia [D50.9] 12/21/2017 Bilateral headaches [R51.9] 01/18/2018 Megaloblastic anemia due to vitamin B12 deficie*09/02/2018 Visit Notes: >> Janeth Bright MA Sharon Apr 08, 2023 11:14 AM Status: Signed Patient Identification confirmed: yes. Injection given and documented on DEC per provider order. Janeth Bright MA Prescriptions ordered this encounter Disp Refills Start End CYANOCOBALAMIN (VIT B-12) 1,000 MCG/* 04/08/2023 04/08/2023 Route: INTRAMUSCULA SODIUM CHLORIDE 0.9 % INTRAVENOUS SO* 04/08/2023 Cmt: Inform physician Route: INTRAVENOUS Encounter Status:Closed by JANETH BRIGHT on 04/08/23 [facility] CNOVSPon 04-08-2023 CNOVSP Visit (SP) Office (HEMASA) JOSEFA CASTILLO ([id number]) 1940 F Date Time Provider Department 04/08/23 10:15 AM ROD ROMAN During your visit today, we recorded the following information about you: Temperature Pulse Respiration Blood pressure 97.8 degrees 77/minute 16/minute 161/74 Weight Height 56.7 kg 1.575 m Rod Roman MD 04/11/2023 2:03 PM Signed NAME: Josefa Castillo CLINIC NO.: [id number] DATE OF SERVICE: April 08, 2023 (Carlos) Some elements in this clinic note that are critical to medical decision making have been carefully reviewed and included from a prior clinic note dated: December 17, 2022 (Carlos) Referring Provider: Tito Hillman MD Additional Clinicians involved in Josefa Castillo's care: CC: Follow up ASSESSMENT: 1. 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 She has been treated with Hydrea since 2001 when she suffered a mini-stroke and was found to have thrombocytosis while living in [place]. She has been on various dosing through the years, but as of the last 5 years, she had consistently been on 500 mg daily. 08/21/2021 she was increased for a brief period of time but then returned to her typical dose of 500 mg daily where she remains. Labs remain stable. Platelet Count (k/uL) Date Value 04/08/2023 580 12/11/2021 473 2. 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 [facility] to include B12 in 8 weeks. Labs every 8 weeks, CBC, CMP Continue current regimen of Hydrea 500 mg daily B12 Shot today and every 8 weeks. RTC in 16 weeks HPI: Updated Visit, April 08, 2023: Says she's not doing well. 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 Continues B12 shots every 8 weeks Platelets 580 today - a little high but can adjust in future if needed. Updated Visit, December 17, 2022: Doing very well. Labs staying stable. Has skipped B12 because her daughter was very sick and she couldn't get in to the office. Will follow up with neurology for headaches that persist. Updated Visit, July 30, 2022: Josefa is 82 years old and returns today with several issues outside of what we typically see her for. She has been complaining of pain on the left side of head over the buddhist and into the jaw. No vision changes associated with pain. Intermittent and dull and pounding. Right buddhist at the corner of her eye lid is a small scab that may need further evaluation by derm. Would defer to Dr. Hillman. Review of laboratories Feels stable disease on current regimen of Hydrea. Updated Visit, March 05, 2022: Doing well on current regimen of care. No complaints. Continues to benefit from B12 shots. Updated Visit, December 11, 2021: Doing well aside from chronic arthralgias and associated back pain. Labs stable. B12 due today. Updated Visit, September 18, 2021: Josefa is doing very well today and platelets have stabilized on current regimen of hydrea. She has no complaints. Updated Visit, September 04, 2021: Mrs. Castillo returns today for a 2 week follow up. At her previous visit we increased her Hydrea to 500 mg daily except 1000 mg on days Wednesday, Wednesday and Wednesday due to an upward trend of her platelets and a bout of epistaxis. She has tolerated the change in dose and confirmed she is taking it appropriately. She has not had any additional bleeding episodes either. Updated Visit, August 21, 2021: Mrs. Castillo returns for follow up. She has been on Hydrea 500 mg daily for the last 5 years along with daily aspirin. Prior to that, she was on various dosing of hydrea. She has been feeling well. She did have a nose bleed 2 weeks ago that lasted about 10 minutes. No other bleeding. No evidence of clots. No new meds or other medical changes. 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 Counts remain stable and she states she feels a boost of energy whenever she gets her B12 shot. Will continue current plan. 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 She continues to do well but has been having some intermittent chest pain. Dr. Hillman ordered a stress test for the intermittent chest pain and felt that it could be cadiac vs. Reflux. Of note, she quit smoking 08/23/2020. She continues to require vitamin B12 injections and counts remain stable on current dosing of Hydrea. Updated Visit, November 11, 2020: 80 yo woman with ET controlled with hydrea 500 mg daily. Doing well with 2 new great granchildren born in and in the New year. Counts well controlled.Feels good when she gets her B12 and has a surge of energy. U (more content not included)... Normal [facility] metabolic 2000 panelon 04-08-2023 Albumin [Mass/Vol] 4.4 g/dL Normal 3.9-4.9 [facility] Comment on above: Order Comment: Speci men Type: BLOOD SPECIMEN Ordering Facility: [facility] Address: [address] [address] Performed By: #### 2 4323, 0 #### [facility] CLIA [id number] [address] [place] [address] ALP [Catalytic activity/Vol] 60 U/L Normal 34-123 [facility] Comment on above: Order Comment: Speci men Type: BLOOD SPECIMEN Ordering Facility: [facility] Address: [address] [address] Performed By: #### 2 4328, 0 #### [facility] CLIA [id number] [address] [place] [address] ALT [Catalytic activity/Vol] 14 U/L Normal 7-38 [facility] Comment on above: Order Comment: Speci men Type: BLOOD SPECIMEN Ordering Facility: [facility] Address: [address] [address] Performed By: #### 2 43238, 0 #### [facility] CLIA [id number] [address] [place] [address] Anion gap [Moles/Vol] 9 mmol/L Normal 9-18 [facility] Comment on above: Order Comment: Speci men Type: BLOOD SPECIMEN Ordering Facility: [facility] Address: [address] Performed By: #### 2 4328, 2531-0 #### LYNETTE [facility] CLIA [id number] [address] [place] [address] AST [Catalytic activity/Vol] 21 U/L Normal 13-35 [facility] Comment on above: Order Comment: Speci men Type: BLOOD SPECIMEN Ordering Facility: [facility] Address: [address] Performed By: #### 2 4328, 2531-0 #### [facility] CLIA [id number] [address] [place] [address] Bilirubin [Mass/Vol] 0.5 mg/dL Normal 0.2-1.3 [facility] Comment on above: Order Comment: Speci men Type: BLOOD SPECIMEN Ordering Facility: [facility] Address: [address] Performed By: #### 2 4328, 2531-0 #### [facility] CLIA [id number] [address] [place] [address] Calcium [Mass/Vol] 9.5 mg/dL Normal 8.5-10.2 [facility] Comment on above: Order Comment: Speci men Type: BLOOD SPECIMEN Ordering Facility: [facility] Address: [address] Performed By: #### 2 4328, 2531-0 #### [facility] CLIA [id number] [address] [place] [address] Chloride [Moles/Vol] 102 mmol/L Normal 97-105 [facility] Comment on above: Order Comment: Speci men Type: BLOOD SPECIMEN Ordering Facility: [facility] Address: [address] Performed By: #### 2 4328, 2532-0 #### [facility] CLIA [id number] [address] [place] [address] CO2 [Moles/Vol] 27 mmol/L Normal 22-30 [facility] Comment on above: Order Comment: Speci men Type: BLOOD SPECIMEN Ordering Facility: [facility] Address: [address] [place] [address] Performed By: #### 2 4323-8, 253-0 #### [facility] CLIA [id number] [address] [place] [address] Creatinine [Mass/Vol] 0.88 mg/dL Normal 0.58-0.96 [facility] Comment on above: Order Comment: Speci men Type: BLOOD SPECIMEN Ordering Facility: [facility] Address: [address] [place] [address] Performed By: #### 2 4323-8, 2531-0 #### [facility] CLIA [id number] [address] [place] [address] ESTIMATED GLOMERULAR FILTRATION RATE 66 mL/min/1.73m??? Normal >=60 [facility] Comment on above: Order Comment: Speci men Type: BLOOD SPECIMEN Ordering Facility: [facility] Address: [address] [place] [address] Result Comment: Esmer mated Glomerular Filtration Rate (eGFR) is calculated using the 2020 CKD-EPI creatinine equation. This equation utilizes serum creatinine, sex, and age as parameters. The creatinine assay has traceable calibration to isotope dilution-mass spectrometry. Refer to KDIGO guidelines for clinical interpretation. In patients with unstable renal function, e.g. those with acute kidney injury, the eGFR may not accurately reflect actual GFR. Performed By: #### 2 4323-8, 2531-0 #### [facility] CLIA [id number] [address] [place] [address] Glucose [Mass/Vol] 106 mg/dL High 74-99 [facility] Comment on above: Order Comment: Speci men Type: BLOOD SPECIMEN Ordering Facility: [facility] Address: [address] [place] [address] Result Comment: The [place] [employer] (ADA) provides guidance for cutoff values for fasting glucose and random glucose. The ADA defines fasting as no caloric intake for at least 8 hours. Fasting plasma glucose results between 100 to 125 mg/dL indicate increased risk for diabetes (prediabetes). Fasting plasma glucose results greater than or equal to 126 mg/dL meet the criteria for diagnosis of diabetes. In the absence of unequivocal hyperglycemia, results should be confirmed by repeat testing. In a patient with classic symptoms of hyperglycemia or hyperglycemic crisis, random plasma glucose results greater than or equal to 200 mg/dL meet the criteria for diagnosis of diabetes. Reference: Standards of Medical Care in Diabetes 2016, [place] [employer]. Diabetes Care. 2016.39(Suppl 1). Performed By: #### 2 4323-8, 2531-0 #### [facility] CLIA [id number] [address] [place] [address] Potassium [Moles/Vol] 4.3 mmol/L Normal 3.7-5.1 [facility] Comment on above: Order Comment: Speci men Type: BLOOD SPECIMEN Ordering Facility: [facility] Address: [address] [id number] Performed By: #### 2 432-8, 0 #### [facility] CLIA [id number] [address] [place] [address] Protein [Mass/Vol] 6.7 g/dL Normal 6.3-8.0 [facility] Comment on above: Order Comment: Speci men Type: BLOOD SPECIMEN Ordering Facility: [facility] Address: [address] [place] [address] Performed By: #### 2 43238, 2531-0 #### [facility] CLIA [id number] [address] [place] [address] 17007 Sodium [Moles/Vol] 138 mmol/L Normal 136-144 [facility] Comment on above: Order Comment: Speci men Type: BLOOD SPECIMEN Ordering Facility: [facility] Address: [address] [id number] Performed By: #### 2 4323-8, 2531-0 #### [facility] CLIA [id number] [address] [place] [address] Urea nitrogen [Mass/Vol] 10 mg/dL Normal 7-21 [facility] Comment on above: Order Comment: Speci men Type: BLOOD SPECIMEN Ordering Facility: [facility] Address: [address] [place] [address] Performed By: #### 2 4323-8, 2531-0 #### [facility] CLIA [id number] [address] [place] [address] LDH SerPl-cCncon 04-08-2023 LDH [Catalytic activity/Vol] 215 U/L High 135-214 [facility] Comment on above: Order Comment: Speci men Type: BLOOD SPECIMEN Ordering Facility: [facility] Address: [address] [place] [address] Result Comment: Hemo lysis present. The origin of the hemolysis, in vitro versus an in vivo hemolytic process, cannot be distinguished via this assay alone. In vitro hemolysis may lead to non-physiological (spurious) elevation in lactate dehydrogenase (LDH) results. The result should be interpreted in context of the clinical setting and other test results. Suggest reorder as clinically indicated. Performed By: #### 2 4323-8, 2531-0 #### [facility] CLIA [id number] [address] [place] [address] 12967 Telemedicineon 02-19-2023 Telemedicine [id number] Chloe Castillo 1940 F Date Provider Department Center 02/19/2023 LINA IZAGUIRRE [facility] Family History Problem Relation Age of Onset Breast cancer Mother Diabetes Mother Diabetes Father Family Status - Relation Status Age at Mother Father Level of Service:60300 AL PHYS/QHP TELEPHONE EVALUATION 11-20 MIN Reason for Visit and Comments: Coronary Artery Disease [187] Hypertension [068099] Telehealth Phone Visit [872] Normal [facility] CBC AUTO DIFFon 01-25-2023 BASO # 0.1 103/ul Normal 0.0-0.[address] [facility] Comment on above: Performed By: #### C BC #### [facility] [address] [address] [address] Dianna Alcocer Basophils/100 WBC (Bld) 0.6 % Normal 0.2-2.[address] [facility] Comment on above: Performed By: #### C BC #### [facility] [address] [address] [address] Dianna Alcocer EO # 0.1 103/ul Normal 0.0-0.7 [facility] Comment on above: Performed By: #### C BC #### [facility] [address] [address] [address] Dianna Alcocer Eosinophils/100 WBC (Bld) 0.7 % Critically low 0.9-7.[address] [facility] Comment on above: Performed By: #### C BC #### [facility] [address] [place] [address] Dr. Dianna Alcocer Erythrocyte distribution width (RBC) [Ratio] 13.4 % Normal 11.0-15.[address] [facility] Comment on above: Performed By: #### C BC #### [facility] [address] [place] [address] Dr. Dianna Alcocer Hematocrit (Bld) [Volume fraction] 38.9 % Normal 36.0-48.[address] [facility] Comment on above: Performed By: #### C BC #### [facility] [address] [place] [address] Dr. Dianna Alcocer Hemoglobin (Bld) [Mass/Vol] 13.2 g/dL Normal 12.0-16.[address] [facility] Comment on above: Performed By: #### C BC #### [facility] [address] [place] [address] Dr. Dianna Alcocer IG # 0.03 10e3/ul Normal 0.00-0.[address] [facility] Comment on above: Performed By: #### C BC #### [facility] [address] [place] [address] Dr. Dianna Alcocer IG % 0.4 % Normal 0.0-0.5 [facility] Comment on above: Performed By: #### C BC #### [facility] [address] [address] [address] Dianna Alcocer LYMPH # 1.4 103/ul Normal 1.2-3.[address] [facility] Comment on above: Performed By: #### C BC #### [facility] [address] [place] [address] Dr. Dianna Alcocer Lymphocytes/100 WBC (Bld) 17.0 % Critically low 20.5-60.[address] [facility] Comment on above: Performed By: #### C BC #### [facility] [address] [place] [address] Dr. Dianna Alcocer MANUAL DIFF REQ NO Normal [facility] Comment on above: Performed By: #### C BC #### [facility] [address] [place] [address] Dr. Dianna Alcocer MCH (RBC) [Entitic mass] 39.6 pg Critically high 26.7-34.[address] [facility] Comment on above: Performed By: #### C BC #### [facility] [address] [place] [address] Dr. Dianna Alcocer MCHC (RBC) [Mass/Vol] 33.9 g/dL Normal 29.9-35.[address] [facility] Comment on above: Performed By: #### C BC #### [facility] [address] [place] [address] Dr. Dianna Alcocer MCV (RBC) [Entitic vol] 116.8 fL Critically high 81.0-99.[address] [facility] Comment on above: Performed By: #### C BC #### [facility] [address] [place] [address] Dr. Dianna Alcocer MONO # 0.6 103/ul Normal 0.3-0.[address] [facility] Comment on above: Performed By: #### C BC #### [facility] [address] [place] [address] Dr. Dianna Alcocer Monocytes/100 WBC (Bld) 7.5 % Normal 1.7-12.[address] [facility] Comment on above: Performed By: #### C BC #### [facility] [address] [address] [address] Dianna Alcocer NEUT # 5.9 103/ul Normal 1.4-6.[address] [facility] Comment on above: Performed By: #### C BC #### [facility] [address] [address] [address] Dianna Alcocer Neutrophils/100 WBC (Bld) 73.8 % Normal 43.0-75.[address] [facility] Comment on above: Performed By: #### C BC #### [facility] [address] [address] [address] Dianna Alcocer Platelet mean volume (Bld) [Entitic vol] 9.9 fL Normal 9.5-13.[address] [facility] Comment on above: Performed By: #### C BC #### [facility] [address] [place] [address] Dr. Dianna Alcocer PLT 576 103/ul Critically high 150-450 [facility] Comment on above: Performed By: #### C BC #### [facility] [address] [place] [address] Dr. Dianna Alcocer RBC 3.33 106/ul Critically low 4.20-5.40 [facility] Comment on above: Performed By: #### C BC #### [facility] [address] [place] [address] Dr. Dianna Alcocer WBC 8.0 103/ul Normal 4.0-11.[address] [facility] Comment on above: Performed By: #### C BC #### [facility] [address] [place] [address] Dr. Dianna Alcocer LIPID PROFILEon 01-25-2023 CHOL-HDL RATIO NORM SEE BELOW Normal [facility] Comment on above: Result Comment: 3.3 - 4.4 LOW RISK 4.4 - 7.1 AVERAGE RISK 7.1 - 11.0 MODERATE RISK >11.0 HIGH RISK Performed By: #### C MADM, BNP, CMP #### [facility] [address] [address] [address] Dianna Alcocer Cholesterol [Mass/Vol] 123 mg/dL Normal <=[address] [facility] Comment on above: Performed By: #### C MADM, BNP, CMP #### [facility] [address] [address] [address] Dianna Alcocer Cholesterol in HDL [Mass/Vol] 60 mg/dL Normal 40-[address] [facility] Comment on above: Performed By: #### C MADM, BNP, CMP #### [facility] [address] [address] [address] Dianna Alcocer Cholesterol in LDL [Mass/Vol] 50.4 mg/dL Normal [facility] Comment on above: Performed By: #### C MADM, BNP, CMP #### [facility] [address] [place] [address] Dr. Dianna Alcocer Cholesterol.total/C holesterol in HDL [Mass ratio] 2.1 {ratio} Normal [facility] Comment on above: Performed By: #### C MADM, BNP, CMP #### [facility] [address] [place] [address] Dr. Dianna Alcocer HDL NORMAL > or = 60 mg/dl - LO W CARDIOVASCULAR RISK <40 mg/dl - HIGH CARDIOVASCULAR RISK Normal [facility] Comment on above: Performed By: #### C MADM, BNP, CMP #### [facility] [address] [place] [address] Dr. Dianna Alcocer LDL CALC NORMAL SEE BELOW Normal [facility] Comment on above: Result Comment: <100 mg/dl OPTIMAL 100 - 129 mg/dl NEAR OR ABOVE OPTIMAL 130 - 159 mg/dl BORDERLINE HIGH 160 - 189 mg/dl HIGH >190 mg/dl VERY HIGH Performed By: #### C MADM, BNP, CMP #### [facility] [address] [place] [address] [address] Dianna Alcocer Triglyceride [Mass/Vol] 63 mg/dL Normal <=[address] [facility] Comment on above: Performed By: #### C MADM, BNP, CMP #### [facility] [address] [place] [address] [address] Dianna Alcocer VLDL CALC 12.6 mg/dL Normal [facility] Comment on above: Performed By: #### C MADM, BNP, CMP #### [facility] [address] [place] [address] Dr. Dianna Alcocer LIVER PROFILEon 01-25-2023 Albumin [Mass/Vol] 4.0 g/dL Normal 3.4-5.0 [facility] Comment on above: Performed By: #### C MADM, BNP, CMP #### [facility] [address] [place] [address] Dr. Dianna Alcocer Albumin/Globulin [Mass ratio] 1.4 {ratio} Normal [facility] Comment on above: Performed By: #### C MADM, BNP, CMP #### [facility] [address] [place] [address] Dr. Dianna Alcocer ALP [Catalytic activity/Vol] 74 U/L Normal 46-[address] [facility] Comment on above: Performed By: #### C MADM, BNP, CMP #### [facility] [address] [place] [address] Dr. Dianna Alcocer ALT [Catalytic activity/Vol] 21 U/L Normal 14-[address] [facility] Comment on above: Performed By: #### C MADM, BNP, CMP #### [facility] [address] [place] [address] Dr. Dianna Alcocer AST [Catalytic activity/Vol] 18 U/L Normal 15-[address] [facility] Comment on above: Performed By: #### C MADM, BNP, CMP #### [facility] [address] [place] [address] Dr. Dianna Alcocer BILI, CONJUGATED 0.1 mg/dL Normal 0.0-0.2 [facility] Comment on above: Performed By: #### C MADM, BNP, CMP #### [facility] [address] [place] [address] Dr. Dianna Alcocer Bilirubin [Mass/Vol] 0.5 mg/dL Normal 0.2-1.[address] [facility] Comment on above: Performed By: #### C MADM, BNP, CMP #### [facility] [address] [place] [address] Dr. Dianna Alcocer Globulin (S) [Mass/Vol] 2.9 g/dL Normal [facility] Comment on above: Performed By: #### C MADM, BNP, CMP #### [facility] [address] [place] [address] [address] Dianna Alcocer Protein [Mass/Vol] 6.9 g/dL Normal 6.4-8.2 [facility] Comment on above: Performed By: #### C MADM, BNP, CMP #### [facility] [address] [place] [address] [address] Dianna Alcocer PROF CHEM 8 (BAS METB)on Anion gap [Moles/Vol] 14.7 mmol/L Normal [facility] Comment on above: Performed By: #### C MADM, BNP, CMP #### [facility] [address] [place] [address] Dr. Dianna Alcocer Calcium [Mass/Vol] 8.9 mg/dL Normal 8.5-10.1 [facility] Comment on above: Performed By: #### C MADM, BNP, CMP #### [facility] [address] [place] [address] Dr. Dianna Alcocer Chloride [Moles/Vol] 103 mmol/L Normal 98-107 [facility] Comment on above: Performed By: #### C MADM, BNP, CMP #### [facility] [address] [place] [address] Dr. Dianna Alcocer CO2 [Moles/Vol] 28.6 mmol/L Normal 21.0-32.0 [facility] Comment on above: Performed By: #### C MADM, BNP, CMP #### [facility] [address] [place] [address] Dr. Dianna Alcocer Creatinine [Mass/Vol] 0.88 mg/dL Normal 0.55-1.02 [facility] Comment on above: Performed By: #### C MADM, BNP, CMP #### [facility] [address] [place] [address] Dr. Dianna Alcocer EGFR-AF [place] >60 Normal >=60 [facility] Comment on above: Performed By: #### C MADM, BNP, CMP #### [facility] [address] [place] [address] Dr. Dianna Alcocer EGFR-NON AF [place] >60 Normal >=[address] [facility] Comment on above: Performed By: #### C MADM, BNP, CMP #### [facility] [address] [place] [address] [address] Dianna Alcocer Glucose [Mass/Vol] 110 mg/dL Critically high 74-106 [facility] Comment on above: Performed By: #### C MADM, BNP, CMP #### [facility] [address] [place] [address] Dr. Dianna Alcocer Potassium [Moles/Vol] 4.3 mmol/L Normal 3.5-5.[address] [facility] Comment on above: Performed By: #### C MADM, BNP, CMP #### [facility] [address] [place] [address] Dr. Dianna Alcocer Sodium [Moles/Vol] 142 mmol/L Normal 136-145 [facility] Comment on above: Performed By: #### C MADM, BNP, CMP #### [facility] [address] [place] [address] Dr. Dianna Alcocer Urea nitrogen [Mass/Vol] 11.0 mg/dL Normal 7.0-18.[address] [facility] Comment on above: Performed By: #### C MADM, BNP, CMP #### [facility] [address] [place] [address] Dr. Dianna Alcocer Urea nitrogen/Creatinine [Mass ratio] 12.5 mg/mg Normal [facility] Comment on above: Performed By: #### C MADM, BNP, CMP #### [facility] [address] [place] [address] Dr. Dianna SHIon 08-24-2022 Natriuretic peptide B (Bld) [Mass/Vol] 469.0 pg/mL Normal <=1,800.[address] [facility] Comment on above: Performed By: #### C MADM, BNP, CMP #### [facility] [address] [place] [address] Dr. Dianna Alcocer CARDIAC KEMAR ADMITon 022 CK [Catalytic activity/Vol] 145 U/L Normal 26-192 [facility] Comment on above: Performed By: #### C MADM, BNP, CMP #### [facility] [address] [place] [address] [address] Dianna Alcocer CK.MB [Mass/Vol] 3.17 ng/mL Normal <=3.60 [facility] Comment on above: Performed By: #### C MADM, BNP, CMP #### [facility] [address] [address] [address] Dianna Alcocer HSTROP 8.4 pg/mL Normal 4.0-51.3 [facility] Comment on above: Result Comment: CUT- OFF POINTS HAVE BEEN ESTABLISHED BASED ON THE FOURTH UNIVERSAL DEFINITIONS OF MYOCARDIAL INFARCTION. THE UPPER REFERENCE LIMIT (URL) OF TROPONIN, DEFINED THE 99TH PERCENTILE OF cTnI DISTRIBUTION IN A REFERENCE POPULATION, HAS BEEN CONFIRMED THE DECISION THRESHOLD FOR MD DIAGNOSIS. Performed By: #### C MADM, BNP, CMP #### [facility] [address] [place] [address] [address] Dianna Alcocer BOB 155 ng/mL Critically high 9-82 [facility] Comment on above: Performed By: #### C MADM, BNP, CMP #### [facility] [address] [address] [address] Dianna Alcocer CBC AUTO DIFFon 08-24-2022 BASO # 0.1 103/ul Normal 0.0-0.[address] [facility] Comment on above: Performed By: #### C BC #### [facility] [address] [place] [address] [address] Dianna Alcocer Basophils/100 WBC (Bld) 1.6 % Normal 0.2-2.0 [facility] Comment on above: Performed By: #### C BC #### [facility] [address] [place] [address] [address] Dianna Alcocer EO # 0.1 103/ul Normal 0.0-0.7 [facility] Comment on above: Performed By: #### C BC #### [facility] [address] [place] [address] Dr. Dianna Alcocer Eosinophils/100 WBC (Bld) 1.6 % Normal 0.9-7.0 [facility] Comment on above: Performed By: #### C BC #### [facility] [address] [place] [address] Dr. Dianna Alcocer Erythrocyte distribution width (RBC) [Ratio] 13.1 % Normal 11.0-15.0 [facility] Comment on above: Performed By: #### C BC #### [facility] [address] [place] [address] Dr. Dianna Alcocer Hematocrit (Bld) [Volume fraction] 38.6 % Normal 36.0-48.[address] [facility] Comment on above: Performed By: #### C BC #### [facility] [address] [place] [address] Dr. Dianna Alcocer Hemoglobin (Bld) [Mass/Vol] 13.2 g/dL Normal 12.0-16.0 [facility] Comment on above: Performed By: #### C BC #### [facility] [address] [place] [address] Dr. Dianna Alcocer IG # 0.01 10e3/ul Normal 0.00-0.[address] [facility] Comment on above: Performed By: #### C BC #### [facility] [address] [place] [address] Dr. Dianna Alcocer IG % 0.2 % Normal 0.0-0.5 [facility] Comment on above: Performed By: #### C BC #### [facility] [address] [place] [address] Dr. Dianna Alcocer LYMPH # 1.7 103/ul Normal 1.2-3.8 [facility] Comment on above: Performed By: #### C BC #### [facility] [address] [place] [address] Dr. Dianna Alcocer Lymphocytes/100 WBC (Bld) 39.3 % Normal 20.5-60.0 [facility] Comment on above: Performed By: #### C BC #### [facility] [address] [place] [address] Dr. Dianna Alcocer MANUAL DIFF REQ NO Normal [facility] Comment on above: Performed By: #### C BC #### [facility] [address] [place] [address] Dr. Dianna Alcocer MCH (RBC) [Entitic mass] 41.4 pg Critically high 26.7-34.[address] [facility] Comment on above: Performed By: #### C BC #### [facility] [address] [place] [address] Dr. Dianna Alcocer MCHC (RBC) [Mass/Vol] 34.2 g/dL Normal 29.9-35.2 [facility] Comment on above: Performed By: #### C BC #### [facility] [address] [place] [address] Dr. Dianna Alcocer MCV (RBC) [Entitic vol] 121.0 fL Critically high 81.0-99.[address] [facility] Comment on above: Performed By: #### C BC #### [facility] [address] [place] [address] Dr. Dianna Alcocer MONO # 0.5 103/ul Normal 0.3-0.[address] [facility] Comment on above: Performed By: #### C BC #### [facility] [address] [place] [address] Dr. Dianna Alcocer Monocytes/100 WBC (Bld) 12.0 % Normal 1.7-12.[address] [facility] Comment on above: Performed By: #### C BC #### [facility] [address] [place] [address] Dr. Dianna Alcocer NEUT # 2.0 103/ul Normal 1.4-6.5 [facility] Comment on above: Performed By: #### C BC #### [facility] [address] [place] [address] Dr. Dianna Alcocer Neutrophils/100 WBC (Bld) 45.3 % Normal 43.0-75.[address] [facility] Comment on above: Performed By: #### C BC #### [facility] [address] [place] [address] Dr. Dianna Alcocer Platelet mean volume (Bld) [Entitic vol] 10.0 fL Normal 9.5-13.[address] [facility] Comment on above: Performed By: #### C BC #### [facility] [address] [place] [address] Dr. Dianna Alcocer PLT 228 103/ul Normal 150-450 [facility] Comment on above: Performed By: #### C BC #### [facility] [address] [place] [address] [address] Dianna Alcocer RBC 3.19 106/ul Critically low 4.20-5.40 [facility] Comment on above: Performed By: #### C BC #### [facility] [address] [place] [address] Dr. Dianna Alcocer WBC 4.3 103/ul Normal 4.0-11.[address] [facility] Comment on above: Performed By: #### C BC #### [facility] [address] [place] [address] Dr. Dianna Alcocer CULTURE URINEon 08-24-2022 CULTURE URINE Culture Observations : LIGHT GROWTH OF MIXED GENITAL SATHYA. NO POTENTIAL PATHOGENS SEEN. Normal [facility] Comment on above: Performed By: #### C MADM, BNP, CMP #### [facility] [address] [place] [address] Dr. Dianna Alcocer DRUG SCREEN RAPID (URINE)on 08-24-2022 AMP Negative Normal NEGATIVE [facility] Comment on above: Performed By: #### D EDEN CARRASQUILLO, ERUR #### [facility] [address] [place] [address] Dr. Dianna Alcocer BAR Negative Normal NEGATIVE [facility] Comment on above: Performed By: #### D EDEN CARRASQUILLO ERUR #### [facility] [address] [place] [address] Dr. Dianna Alcocer BUP Negative Normal NEGATIVE [facility] Comment on above: Performed By: #### D EDEN CARRASQUILLO, ERUR #### [facility] [address] [place] [address] Dr. Dianna Alcocer BZO Negative Normal NEGATIVE [facility] Comment on above: Performed By: #### D EDEN CARRASQUILLO, ERUR #### [facility] [address] [place] [address] Dr. Dianna Alcocer HASMUKH Negative Normal NEGATIVE [facility] Comment on above: Performed By: #### D EDEN CARRASQUILLO, ERUR #### [facility] [address] [place] [address] [address] Dianna Alcocer CUT-OFFS SEE BELOW Normal [facility] Comment on above: Result Comment: AMP (Amphetamine): 500ng/mL, BAR (Barbituates): 200 ng/mL, BZO (Benzodiazepines): 150 ng/mL, BUP (Buprenorphine): 10 ng/mL, HASMUKH (Cocaine): 150 ng/mL, mAMP (Methamphetamine): 500 ng/mL, MTD (Methadone): 200 ng/mL, OPI (Opiates): 100 ng/mL, OXY (Oxycodone): 100 ng/mL, PCP (Phencyclidine): 25 ng/mL, PPX (Propoxyphene): 300 ng/mL, THC (Cannabinoids): 50 ng/mL, TCA (Trycyclic Antidepressants): 300 ng/mL Performed By: #### D EDEN CARRASQUILLO, ERUR #### [facility] [address] [place] [address] Dr. Dianna Alcocer DRUG CUT HEADER DRUG CLASS TEST SYST EM CUT-OFF CONCENTRATIONS ARE FOLLOWS: Normal [facility] Comment on above: Performed By: #### D EDEN CARRASQUILLO, ERUR #### [facility] [address] [place] [address] Dr. Dianna Alcocer mAMP Negative Normal NEGATIVE [facility] Comment on above: Performed By: #### D EDEN CARRASQUILLO, ERUR #### [facility] [address] [place] [address] Dr. Dianna Alcocer MTD Negative Normal NEGATIVE [facility] Comment on above: Performed By: #### D EDEN CARRASQUILLO, ERUR #### [facility] [address] [place] [address] Dr. Dianna Alcocer OPI Positive Abnormal NEGATIVE [facility] Comment on above: Performed By: #### D JUNAID CARRASQUILLORO, ERUR #### [facility] [address] [address] [address] Dianna Alcocer OXY Negative Normal NEGATIVE [facility] Comment on above: Performed By: #### D LISSY CARRASQUILLOICRO, ERUR #### [facility] [address] [address] [address] Dianna Alcocer PCP Negative Normal NEGATIVE [facility] Comment on above: Performed By: #### D LISSY CARRASQUILLOICRO, ERUR #### [facility] [address] [address] [address] Dianna Alcocer PPX Negative Normal NEGATIVE [facility] Comment on above: Performed By: #### D JUNAID CARRASQUILLORO, ERUR #### [facility] [address] [place] [address] Dr. Dianna Alcocer TCA Negative Normal NEGATIVE [facility] Comment on above: Performed By: #### D JUNAID CARRASQUILLORO, ERUR #### [facility] [address] [address] [address] Dianna Alcocer THC Negative Normal NEGATIVE [facility] Comment on above: Performed By: #### D JUNAID CARRASQUILLORO, ERUR #### [facility] [address] [address] [address] Dianna Alcocer ER URINE PROFILEon 2 Bilirubin Ql (U) Negative Normal NEGATIVE [facility] Comment on above: Performed By: #### D LISSY CARRASQUILLOICRO, ERUR #### [facility] [address] [address] [address] Dianna Alcocer Clarity (U) CLEAR Normal CLEAR [facility] Comment on above: Performed By: #### D LISSY CARRASQUILLOICRO, ERUR #### [facility] [address] [address] [address] Dianna Alcocer Color (U) LT. YELLOW Normal YELLOW [facility] Comment on above: Performed By: #### D EDEN CARRASQUILLO, ERUR #### [facility] [address] [address] [address] Dianna EDMONDSON A micrscopic examination will be performed if indicated. Normal [facility] Comment on above: Performed By: #### D EDEN CARRASQUILLO, ERUR #### [facility] [address] [address] [address] Dianna Alcocer Glucose Ql (U) Negative Normal NEGATIVE [facility] Comment on above: Performed By: #### D EDEN CARRASQUILLO, ERUR #### [facility] [address] [address] [address] Dianna Alcocer Hemoglobin Ql (U) MODERATE Abnormal NEGATIVE [facility] Comment on above: Performed By: #### D EDEN CARRASQUILLO, ERUR #### [facility] [address] [address] [address] Dianna Alcocer Ketones Ql (U) Negative Normal NEGATIVE [facility] Comment on above: Performed By: #### D EDEN CARRASQUILLO, ERUR #### [facility] [address] [address] [address] Dianna Alcocer LEUKOCYTES SMALL Abnormal NEGATIVE [facility] Comment on above: Performed By: #### D EDEN CARRASQUILLO, ERUR #### [facility] [address] [address] [address] Dianna Alcocer Nitrite Ql (U) Negative Normal NEGATIVE [facility] Comment on above: Performed By: #### D EDEN CARRASQUILLO, ERUR #### [facility] [address] [address] [address] Dianna Alcocer pH (U) 6.0 [pH] Normal 5-9 [facility] Comment on above: Performed By: #### D EDEN CARRASQUILLO, ERUR #### [facility] [address] [address] [address] Dianna Alcocer SPEC GRAVITY 1.020 Normal 1.005-<=1.025 [facility] Comment on above: Performed By: #### D EDEN CARRASQUILLO, ERUR #### [facility] [address] [place] [address] Dr. Dianna Alcocer UA PROTEIN Negative Normal NEGATIVE/ TRACE [facility] Comment on above: Performed By: #### D EDEN CARRASQUILLO, ERUR #### [facility] [address] [place] [address] Dr. Dianna Alcocer UR MICRO IND INDICATED Normal [facility] Comment on above: Performed By: #### D EDEN CARRASQUILLO, ERUR #### [facility] [address] [place] [address] Dr. Dianna Alcocer Urobilinogen Qn (U) 0.2 {Simone'U}/dL Normal 0.2 - 1. [address] [facility] Comment on above: Performed By: #### D EDEN CARRASQUILLO, ERUR #### [facility] [address] [place] [address] Dr. Dianna Alcocer PROF 14(COMP METB)on 022 Albumin [Mass/Vol] 4.0 g/dL Normal 3.4-5.0 [facility] Comment on above: Performed By: #### C MADM, BNP, CMP #### [facility] [address] [place] [address] Dr. Dianna Alcocer Albumin/Globulin [Mass ratio] 1.4 {ratio} Normal [facility] Comment on above: Performed By: #### C MADM, BNP, CMP #### [facility] [address] [place] [address] Dr. Dianna Alcocer ALP [Catalytic activity/Vol] 57 U/L Normal 46-116 [facility] Comment on above: Performed By: #### C MADM, BNP, CMP #### [facility] [address] [place] [address] Dr. Dianna Alcocer ALT [Catalytic activity/Vol] 15 U/L Normal 14-[address] [facility] Comment on above: Performed By: #### C MADM, BNP, CMP #### [facility] [address] [place] [address] Dr. Dianna Alcocer Anion gap [Moles/Vol] 11.3 mmol/L Normal [facility] Comment on above: Performed By: #### C MADM, BNP, CMP #### [facility] [address] [address] [address] Dianna Alcocer AST [Catalytic activity/Vol] 16 U/L Normal 15-[address] [facility] Comment on above: Performed By: #### C MADM, BNP, CMP #### [facility] [address] [address] [address] Dianna Alcocer Bilirubin [Mass/Vol] 0.6 mg/dL Normal 0.2-1.[address] [facility] Comment on above: Performed By: #### C MADM, BNP, CMP #### [facility] [address] [place] [address] Dr. Dianna Alcocer Calcium [Mass/Vol] 8.6 mg/dL Normal 8.5-10.1 [facility] Comment on above: Performed By: #### C MADM, BNP, CMP #### [facility] [address] [address] [address] Dianna Alcocer Chloride [Moles/Vol] 100 mmol/L Normal 98-107 [facility] Comment on above: Performed By: #### C MADM, BNP, CMP #### [facility] [address] [place] [address] Dr. Dianna Alcocer CO2 [Moles/Vol] 28.4 mmol/L Normal 21.0-32.0 [facility] Comment on above: Performed By: #### C MADM, BNP, CMP #### [facility] [address] [place] [address] Dr. Dianna Alcocer Creatinine [Mass/Vol] 0.97 mg/dL Normal 0.55-1.02 [facility] Comment on above: Performed By: #### C MADM, BNP, CMP #### [facility] [address] [address] [address] Dianna Alcocer EGFR-AF [place] >60 Normal >=60 [facility] Comment on above: Performed By: #### C MADM, BNP, CMP #### [facility] [address] [address] [address] Dianna Alcocer EGFR-NON AF [place] 55 mL/min/1.73m2 Critically low >=[address] [facility] Comment on above: Performed By: #### C MADM, BNP, CMP #### [facility] [address] [address] [address] Dianna Alcocer Globulin (S) [Mass/Vol] 2.9 g/dL Normal [facility] Comment on above: Performed By: #### C MADM, BNP, CMP #### [facility] [address] [address] [address] Dianna Alcocer Glucose [Mass/Vol] 86 mg/dL Normal 74-106 [facility] Comment on above: Performed By: #### C MADM, BNP, CMP #### [facility] [address] [address] [address] Dianna Alcocer Potassium [Moles/Vol] 3.7 mmol/L Normal 3.5-5.[address] [facility] Comment on above: Performed By: #### C MADM, BNP, CMP #### [facility] [address] [address] [address] Dianna Alcocer Protein [Mass/Vol] 6.9 g/dL Normal 6.4-8.2 [facility] Comment on above: Performed By: #### C MADM, BNP, CMP #### [facility] [address] [address] [address] Dianna Alcocer Sodium [Moles/Vol] 136 mmol/L Normal 136-145 [facility] Comment on above: Performed By: #### C MADM, BNP, CMP #### [facility] [address] [address] [address] Dianna Alcocer Urea nitrogen [Mass/Vol] 9.0 mg/dL Normal 7.0-18.[address] [facility] Comment on above: Performed By: #### C MADM, BNP, CMP #### [facility] [address] [address] [address] Dianna Alcocer Urea nitrogen/Creatinine [Mass ratio] 9.3 mg/mg Normal [facility] Comment on above: Performed By: #### C MADM, BNP, CMP #### [facility] [address] [address] [address] Dianna Alcocer URINE MICROSCOPIC ONLYon BACTERIA NONE SEEN Normal NONE SEEN [facility] Comment on above: Performed By: #### D JUNAID CARRASQUILLORO, ERUR #### [facility] [address] [address] [address] Dianna Alcocer Bacteria identified Cx Nom (U) INDICATED Normal [facility] Comment on above: Performed By: #### D EDEN CARRASQUILLO, ERUR #### [facility] [address] [place] [address] Dr. Dianna Alcocer CAST NONE SEEN Normal NONE SEEN [facility] Comment on above: Performed By: #### D EDEN CARRASQUILLO, ERUR #### [facility] [address] [place] [address] Dr. Dianna Alcocer Crystals LM Nom (Urine sed) NONE SEEN Normal NONE SEEN [facility] Comment on above: Performed By: #### D EDEN CARRASQUILLO, ERUR #### [facility] [address] [place] [address] Dr. Dianna Alcocer Epithelial cells LM Ql (Urine sed) FEW Abnormal NONE SEEN /RARE [facility] Comment on above: Performed By: #### D EDEN CARRASQUILLO, ERUR #### [facility] [address] [place] [address] Dr. Dianna Alcocer MUCOUS TRACE Abnormal NONE SEEN [facility] Comment on above: Performed By: #### D EDEN CARRASQUILLO, ERUR #### [facility] [address] [address] [address] Dianna Alcocer RBC 2-5 Abnormal 0-2 [facility] Comment on above: Performed By: #### D EDEN CARRASQUILLO, ERUR #### [facility] [address] [address] [address] Dianna Alcocer WBC 2-5 Abnormal NONE SEEN [facility] Comment on above: Performed By: #### D RUGRPD, UMICRO, ERUR #### [facility] [address] [address] [address] Dianna Alcocer VIT B12 AND FOLATEon 022 Cobalamin (Vitamin B12) [Mass/Vol] 703.0 pg/mL Normal 193.0-986.[address] [facility] Comment on above: Performed By: #### C MADM, BNP, CMP #### [facility] [address] [address] [address] Dianna Alcocer FOLATE 12.90 ng/mL Normal 8.60-58.[address] [facility] Comment on above: Performed By: #### C RAMANDEEPM, BNP, CMP #### [facility] [address] [address] [address] Dianna Alcocer XR CHEST 1 Von 08-24-2022 XR CHEST 1 V EXAMINATION: XR CHES T 1 V HISTORY: Altered mental status COMPARISON: No relevant comparison available. FINDINGS: LUNGS: No significant pulmonary parenchymal abnormalities. VASCULATURE: No increased pulmonary vasculature. PLEURA: No pneumothorax, effusion, or pleural thickening. CARDIAC: No cardiomegaly or cardiac silhouette abnormality. MEDIASTINUM: No visible mass or adenopathy. BONES: Degenerative changes of the glenohumeral joints. OTHER: Negative. IMPRESSION: 1. No acute cardiopulmonary process. Stable chest. Electronically authenticated by: LUZ GRIDER Date: 2022-08-24 10:01 Normal [facility] CBC AUTO DIFFon 08-23-2022 BASO # 0.1 103/ul Normal 0.0-0.[address] [facility] Comment on above: Performed By: #### C MADM, BNP, CMP #### [facility] [address] [address] [address] Dianna Alcocer Basophils/100 WBC (Bld) 1.2 % Normal 0.2-2.0 [facility] Comment on above: Performed By: #### C MADM, BNP, CMP #### [facility] [address] [address] [address] Dianna Alcocer EO # 0.1 103/ul Normal 0.0-0.[address] [facility] Comment on above: Performed By: #### C MADM, BNP, CMP #### [facility] [address] [place] [address] Dr. Dianna Alcocer Eosinophils/100 WBC (Bld) 1.9 % Normal 0.9-7.0 [facility] Comment on above: Performed By: #### C MADM, BNP, CMP #### [facility] [address] [place] [address] Dr. Dianna Alcocer Erythrocyte distribution width (RBC) [Ratio] 12.9 % Normal 11.0-15.0 [facility] Comment on above: Performed By: #### C MADM, BNP, CMP #### [facility] [address] [place] [address] Dr. Dianna Alcocer Hematocrit (Bld) [Volume fraction] 40.4 % Normal 36.0-48.[address] [facility] Comment on above: Performed By: #### C MADM, BNP, CMP #### [facility] [address] [place] [address] Dr. Dianna Alcocer Hemoglobin (Bld) [Mass/Vol] 13.9 g/dL Normal 12.0-16.0 [facility] Comment on above: Performed By: #### C MADM, BNP, CMP #### [facility] [address] [place] [address] Dr. Dianna Alcocer IG # 0.01 10e3/ul Normal 0.00-0.03 [facility] Comment on above: Performed By: #### C MADM, BNP, CMP #### [facility] [address] [place] [address] Dr. Dianna Alcocer IG % 0.2 % Normal 0.0-0.5 [facility] Comment on above: Performed By: #### C MADM, BNP, CMP #### [facility] [address] [place] [address] Dr. Dianna Alcocer LYMPH # 1.7 103/ul Normal 1.2-3.8 [facility] Comment on above: Performed By: #### C MADM, BNP, CMP #### [facility] [address] [address] [address] Dianna Alcocer Lymphocytes/100 WBC (Bld) 39.3 % Normal 20.5-60.0 [facility] Comment on above: Performed By: #### C MADM, BNP, CMP #### [facility] [address] [place] [address] Dr. Dianna Alcocer MANUAL DIFF REQ NO Normal [facility] Comment on above: Performed By: #### C MADM, BNP, CMP #### [facility] [address] [place] [address] Dr. Dianna Alcocer MCH (RBC) [Entitic mass] 41.0 pg Critically high 26.7-34.0 [facility] Comment on above: Performed By: #### C MADM, BNP, CMP #### [facility] [address] [place] [address] Dr. Dianna Alcocer MCHC (RBC) [Mass/Vol] 34.4 g/dL Normal 29.9-35.2 [facility] Comment on above: Performed By: #### C MADM, BNP, CMP #### [facility] [address] [place] [address] Dr. Dianna Alcocer MCV (RBC) [Entitic vol] 119.2 fL Critically high 81.0-99.0 [facility] Comment on above: Result Comment: 2+ m acrocytosis Performed By: #### C MADM, BNP, CMP #### [facility] [address] [place] [address] Dr. Dianna Alcocer MONO # 0.6 103/ul Normal 0.3-0.8 [facility] Comment on above: Performed By: #### C MADM, BNP, CMP #### [facility] [address] [place] [address] Dr. Dianna Alcocer Monocytes/100 WBC (Bld) 13.1 % Critically high 1.7-12.[address] [facility] Comment on above: Performed By: #### C MADM, BNP, CMP #### [facility] [address] [place] [address] Dr. Dianna Alcocer NEUT # 1.9 103/ul Normal 1.4-6.[address] [facility] Comment on above: Performed By: #### C MADM, BNP, CMP #### [facility] [address] [address] [address] Dianna Alcocer Neutrophils/100 WBC (Bld) 44.3 % Normal 43.0-75.[address] [facility] Comment on above: Performed By: #### C MADM, BNP, CMP #### [facility] [address] [address] [address] Dianna Alcocer Platelet mean volume (Bld) [Entitic vol] 9.9 fL Normal 9.5-13.[address] [facility] Comment on above: Performed By: #### C MADM, BNP, CMP #### [facility] [address] [address] [address] Dianna Alcocer PLT 274 103/ul Normal 150-[address] [facility] Comment on above: Performed By: #### C MADM, BNP, CMP #### [facility] [address] [address] [address] Dianna Alcocer RBC 3.39 106/ul Critically low 4.20-5.40 [facility] Comment on above: Performed By: #### C MADM, BNP, CMP #### [facility] [address] [place] [address] Dr. Dianna Alcocer WBC 4.3 103/ul Normal 4.0-11.[address] [facility] Comment on above: Performed By: #### C MADM, BNP, CMP #### [facility] [address] [place] [address] HEAD WO CONon 08-23-2022 CT HEAD WO CON HEAD CT WITHOUT CONTRAST: 08/23/2022 10:25 AM EDT Clinical Data: DISORIENTATION, UNSPECIFIED Comparison: No previous Unenhanced axial data from base to vertex. INTRA-AXIAL: No acute hemorrhage. No acute cerebral cortical infarction is evident. No cerebellar or brainstem infarct is evident. Subcortical hypodensity left lateral frontal region measures 7 mm. EXTRA-AXIAL: No acute hemorrhage. No focal fluid collection. BRAIN VOLUME: Unremarkable for age. VENTRICLES: No hydrocephalus PARANASAL SINUSES: No air-fluid levels in the included aspects. MASTOIDS: Clear. CALVARIUM: No acute finding. EXTRACALVARIAL: No acute findings IMPRESSION: 1. No evidence of acute intracranial hemorrhage. 2. Subcortical hypodensity left lateral frontal region is nonspecific. Most likely it represents an age-indeterminate infarct. All CT scans at this facility use dose modulation, iterative reconstruction, and/or weight based dosing when appropriate to reduce radiation dose to as low as reasonably achievable. Electronically authenticated by: COLLIN COLEMAN Date: 2022-08-23 11:05 Normal [facility] CULTURE URINEon 08-23-2022 CULTURE URINE Culture Observations : No growth Normal [facility] Comment on above: Performed By: #### C MADM, BNP, CMP #### [facility] [address] [place] [address] Dr. Dianna Alcocer ER URINE PROFILEon 2 Bilirubin Ql (U) Negative Normal NEGATIVE [facility] Comment on above: Performed By: #### C MADM, BNP, CMP #### [facility] [address] [place] [address] Dr. Dianna Alcocer Clarity (U) SL CLOUDY Abnormal CLEAR [facility] Comment on above: Performed By: #### C RAMANDEEPM BNP, CMP #### [facility] [address] [place] [address] Dr. Dianna Alcocer Color (U) LT. YELLOW Normal YELLOW [facility] Comment on above: Performed By: #### C MADM, BNP, CMP #### [facility] [address] [place] [address] Dr. Dianna Alcocer ERUAHD A micrscopic examination will be performed if indicated. Normal [facility] Comment on above: Performed By: #### C MADM, BNP, CMP #### [facility] [address] [place] [address] Dr. Dianna Alcocer Glucose Ql (U) Negative Normal NEGATIVE [facility] Comment on above: Performed By: #### C MADM, BNP, CMP #### [facility] [address] [place] [address] Dr. Dianna Alcocer Hemoglobin Ql (U) LARGE Abnormal NEGATIVE [facility] Comment on above: Performed By: #### C MADM, BNP, CMP #### [facility] [address] [address] [address] Dianna Alcocer Ketones Ql (U) Negative Normal NEGATIVE [facility] Comment on above: Performed By: #### C MADM, BNP, CMP #### [facility] [address] [place] [address] Dr. Dianna Alcocer LEUKOCYTES SMALL Abnormal NEGATIVE [facility] Comment on above: Performed By: #### C MADM, BNP, CMP #### [facility] [address] [address] [address] Dianna Alcocer Nitrite Ql (U) Negative Normal NEGATIVE [facility] Comment on above: Performed By: #### C MADM, BNP, CMP #### [facility] [address] [place] [address] Dr. Dianna Alcocer pH (U) 6.0 [pH] Normal 5-[address] [facility] Comment on above: Performed By: #### C MADM, BNP, CMP #### [facility] [address] [place] [address] Dr. Dianna Alcocer SPEC GRAVITY 1.020 Normal 1.005-<=1.025 [facility] Comment on above: Performed By: #### C MADM, BNP, CMP #### [facility] [address] [place] [address] Dr. Dianna Alcocer UA PROTEIN Negative Normal NEGATIVE/ TRACE [facility] Comment on above: Performed By: #### C MADM, BNP, CMP #### [facility] [address] [place] [address] Dr. Dianna Alcocer UR MICRO IND INDICATED Normal [facility] Comment on above: Performed By: #### C MADM, BNP, CMP #### [facility] [address] [place] [address] Dr. Dianna Alcocer Urobilinogen Qn (U) 0.2 {Simone'U}/dL Normal 0.2 - 1. [address] [facility] Comment on above: Performed By: #### C MADM, BNP, CMP #### [facility] [address] [address] [address] Dianna Alcocer PROF 14(COMP METB)on 022 Albumin [Mass/Vol] 4.2 g/dL Normal 3.4-5.0 [facility] Comment on above: Performed By: #### H HAVEN, CMP #### [facility] [address] [address] [address] Dianna Alcocer Albumin/Globulin [Mass ratio] 1.4 {ratio} Normal [facility] Comment on above: Performed By: #### H HAVEN, CMP #### [facility] [address] [address] [address] Dianna Alcocer ALP [Catalytic activity/Vol] 65 U/L Normal 46-[address] [facility] Comment on above: Performed By: #### H HAVEN, CMP #### [facility] [address] [place] [address] Dr. Dianna Alcocer ALT [Catalytic activity/Vol] 16 U/L Normal 14-[address] [facility] Comment on above: Performed By: #### H HAVEN, CMP #### [facility] [address] [address] [address] Dianna Alcocer Anion gap [Moles/Vol] 10.6 mmol/L Normal [facility] Comment on above: Performed By: #### H HAVEN, CMP #### [facility] [address] [address] [address] Dianna Alcocer AST [Catalytic activity/Vol] 20 U/L Normal 15-[address] [facility] Comment on above: Performed By: #### H STROPN, CMP #### [facility] [address] [address] [address] Dianna Alcocer Bilirubin [Mass/Vol] 0.7 mg/dL Normal 0.2-1.[address] [facility] Comment on above: Performed By: #### H STROPN, CMP #### [facility] [address] [address] [address] Dianna Alcocer Calcium [Mass/Vol] 8.9 mg/dL Normal 8.5-10.1 [facility] Comment on above: Performed By: #### H STROPN, CMP #### [facility] [address] [address] [address] Dianna Alcocer Chloride [Moles/Vol] 101 mmol/L Normal 98-[address] [facility] Comment on above: Performed By: #### H STROPN, CMP #### [facility] [address] [address] [address] Dianna Alcocer CO2 [Moles/Vol] 27.4 mmol/L Normal 21.0-32.0 [facility] Comment on above: Performed By: #### H STROPN, CMP #### [facility] [address] [address] [address] Dianna Alcocer Creatinine [Mass/Vol] 1.03 mg/dL Critically high 0.55-1.[address] [facility] Comment on above: Performed By: #### H STROPN, CMP #### [facility] [address] [address] [address] Dianna Alcocer EGFR-AF [place] >60 Normal >=60 [facility] Comment on above: Performed By: #### H STROPN, CMP #### [facility] [address] [address] [address] Dianna Alcocer EGFR-NON AF [place] 51 mL/min/1.73m2 Critically low >=[address] [facility] Comment on above: Performed By: #### H STROPN, CMP #### [facility] [address] [address] [address] Dianna Alcocer Globulin (S) [Mass/Vol] 3.1 g/dL Normal [facility] Comment on above: Performed By: #### H STROPN, CMP #### [facility] [address] [address] [address] Dianna Alcocer Glucose [Mass/Vol] 99 mg/dL Normal 74-106 [facility] Comment on above: Performed By: #### H STROPN, CMP #### [facility] [address] [address] [address] Dianna Alcocer Potassium [Moles/Vol] 4.0 mmol/L Normal 3.5-5.[address] [facility] Comment on above: Performed By: #### H STROPN, CMP #### [facility] [address] [address] [address] Dianna Alcocer Protein [Mass/Vol] 7.3 g/dL Normal 6.4-8.2 [facility] Comment on above: Performed By: #### H STROPN, CMP #### [facility] [address] [address] [address] Dianna Alcocer Sodium [Moles/Vol] 135 mmol/L Critically low 136-145 [facility] Comment on above: Performed By: #### H STROPN, CMP #### [facility] [address] [address] [address] Dianna Alcocer Urea nitrogen [Mass/Vol] 8.0 mg/dL Normal 7.0-18.[address] [facility] Comment on above: Performed By: #### H STROPN, CMP #### [facility] [address] [place] [address] Dr. Dianna Alcocer Urea nitrogen/Creatinine [Mass ratio] 7.8 mg/mg Normal [facility] Comment on above: Performed By: #### H STROPN, CMP #### [facility] [address] [place] [address] Dr. Dianna Alcocer TROPONIN, HIGH SENSITIVITYon 08-23-2022 HSTROP 8.5 pg/mL Normal 4.0-51.[address] [facility] Comment on above: Result Comment: CUT- OFF POINTS HAVE BEEN ESTABLISHED BASED ON THE FOURTH UNIVERSAL DEFINITIONS OF MYOCARDIAL INFARCTION. THE UPPER REFERENCE LIMIT (URL) OF TROPONIN, DEFINED THE 99TH PERCENTILE OF cTnI DISTRIBUTION IN A REFERENCE POPULATION, HAS BEEN CONFIRMED THE DECISION THRESHOLD FOR MD DIAGNOSIS. Performed By: #### H STROPN, CMP #### [facility] [address] [place] [address] Dr. Dianna Alcocer URINE MICROSCOPIC ONLYon BACTERIA SMALL Abnormal NONE SEEN [facility] Comment on above: Performed By: #### C MADM, BNP, CMP #### [facility] [address] [place] [address] Dr. Dianna Alcocer Bacteria identified Cx Nom (U) INDICATED Normal [facility] Comment on above: Performed By: #### C MADM, BNP, CMP #### [facility] [address] [address] [address] Dianna Alcocer CAST NONE SEEN Normal NONE SEEN [facility] Comment on above: Performed By: #### C MADM, BNP, CMP #### [facility] [address] [address] [address] Dianna Alcocer Crystals LM Nom (Urine sed) NONE SEEN Normal NONE SEEN [facility] Comment on above: Performed By: #### C MADM, BNP, CMP #### [facility] [address] [address] [address] Dianna Alcocer Epithelial cells LM Ql (Urine sed) FEW Abnormal NONE SEEN /RARE [facility] Comment on above: Performed By: #### C MADM, BNP, CMP #### [facility] [address] [place] [address] Dr. Dianna Alcocer MUCOUS NONE SEEN Normal NONE SEEN [facility] Comment on above: Performed By: #### C MADM, BNP, CMP #### [facility] [address] [place] [address] Dr. Dianna Alcocer RBC 0-2 Normal 0-2 [facility] Comment on above: Performed By: #### C MADM, BNP, CMP #### [facility] [address] [place] [address] Dr. Dianna Alcocer WBC 2-5 Abnormal NONE SEEN [facility] Comment on above: Performed By: #### C MADM, BNP, CMP #### [facility] [address] [place] [address] Dr. Dianna Alcocer XR CHEST 1 Von 08-23-2022 XR CHEST 1 V EXAMINATION: XR CHES T 1 V HISTORY: CHEST PAIN, UNSPECIFIED COMPARISON: No relevant comparison available. TECHNIQUE: AP portable FINDINGS: LUNGS: No significant pulmonary parenchymal abnormalities. VASCULATURE: No increased pulmonary vasculature. PLEURA: No pneumothorax, effusion, or pleural thickening. CARDIAC: No cardiomegaly or cardiac silhouette abnormality. MEDIASTINUM: No visible mass or adenopathy. BONES: No fracture or visible bone lesion. OTHER: Negative. IMPRESSION: No acute disease. Electronically authenticated by: SOTERO GOMEZ Date: 2022-08-23 10:[address] [facility] CULTURE URINEon 07-30-2022 CULTURE URINE Isolate 1 Klebsiella pneumoniae 10,000 cfu/mL of ORGANISM 1 Klebsiella pneumoniae ANTIBIOTIC M.I.C RX STATUS Ampicillin >=32 R F Ampicillin/Sulbactam 16 I F Piperacillin/Tazobacta m <=4 S F Cefazolin <=4 S F Ceftazidime <=1 S F Ceftriaxone <=1 S F Ertapenem <=0.5 S F Imipenem <=0.25 S F Amikacin <=2 S F Gentamicin <=1 S F Tobramycin <=1 S F Ciprofloxacin <=0.25 S F Levofloxacin <=0.12 S F Nitrofurantoin 64 I F Trimethoprim/Sulfameth oxazole <=20 S F Normal [facility] Comment on above: Performed By: #### C MADM, BNP, CMP #### [facility] [address] [place] [address] ABD/PELV W CONon 05-08-20 CT ABD/PELV W CON EXAMINATION: CT ABD/PELV W CON HISTORY: Abdominal colic , diarrhea, hematuria for 2 months COMPARISON: No relevant comparison available. TECHNIQUE: Axial, Coronal, and Sagittal images were created with IV contrast. Dose reduction techniques were achieved by using automated exposure control and/or adjustment of mA and/or kV according to patient size and/or use of iterative reconstruction technique. FINDINGS: LUNG BASES: No visible pulmonary or pleural disease. LIVER: No enlargement, atrophy, suspicious density, or significant focal lesion. BILIARY: Cholecystectomy. PANCREAS: No lesion, fluid collection, or abnormal duct dilatation. SPLEEN: No enlargement or focal lesion. ADRENALS: No mass or enlargement. KIDNEYS: Right kidney contains a nonobstructing 4 mm stone. A few benign-appearing small cysts within left kidney. BOWEL/MESENTERY: Marked diverticulosis throughout length of colon without acute inflammatory changes. No visible mass, obstruction, or bowel wall thickening. AORTA/VASCULAR: No aneurysm or dissection. RETROPERITONEUM: No mass or adenopathy. LYMPH NODES: No adenopathy. URINARY BLADDER: No visible focal wall thickening, lesion, or calculus. PELVIC ORGANS: Hysterectomy. ABDOMINAL WALL: No mass or hernia. BONES: Stable compression fractures; 10 mild, T12-L1 marked, L2, L3, L5 moderate-marked. L5 prior vertebroplasty. Stable small sclerotic lesion within left iliac wing favoring a bone island. OTHER: Negative. IMPRESSION: 1. Nonspecific in right nephrolithiasis. No acute findings to account for patient's symptoms. 2. Marked colonic diverticulosis. No acute findings. 3. Multilevel moderate marked compression fractures of lumbar spine and marked degenerative changes; grossly stable. Electronically authenticated by: LUZ GRIDER Date: 2022-05-08 10:36 Normal [facility] PROF CHEM 8 (BAS METB)on Anion gap [Moles/Vol] 8.4 mmol/L Normal [facility] Comment on above: Performed By: #### C MADM, BNP, CMP #### [facility] [address] [place] [address] Dr. Dianna Alcocer Calcium [Mass/Vol] 8.9 mg/dL Normal 8.5-10.1 [facility] Comment on above: Performed By: #### C MADM, BNP, CMP #### [facility] [address] [address] [address] Dianna Alcocer Chloride [Moles/Vol] 103 mmol/L Normal 98-107 [facility] Comment on above: Performed By: #### C MADM, BNP, CMP #### [facility] [address] [address] [address] Dianna Alcocer CO2 [Moles/Vol] 28.7 mmol/L Normal 21.0-32.0 [facility] Comment on above: Performed By: #### C MADM, BNP, CMP #### [facility] [address] [address] [address] Dianna Alcocer Creatinine [Mass/Vol] 0.95 mg/dL Normal 0.55-1.[address] [facility] Comment on above: Performed By: #### C MADM, BNP, CMP #### [facility] [address] [address] [address] Dianna Alcocer EGFR-AF [place] >60 Normal >=60 [facility] Comment on above: Performed By: #### C MADM, BNP, CMP #### [facility] [address] [address] [address] Dianna Alcocer EGFR-NON AF [place] 56 mL/min/1.73m2 Critically low >=[address] [facility] Comment on above: Performed By: #### C MADM, BNP, CMP #### [facility] [address] [place] [address] Dr. Dianna Alcocer Glucose [Mass/Vol] 91 mg/dL Normal 74-106 [facility] Comment on above: Performed By: #### C MADM, BNP, CMP #### [facility] [address] [address] [address] Dianna Alcocer Potassium [Moles/Vol] 5.1 mmol/L Normal 3.5-5.[address] [facility] Comment on above: Performed By: #### C MADM, BNP, CMP #### [facility] [address] [place] [address] Dr. Dianna Alcocer Sodium [Moles/Vol] 135 mmol/L Critically low 136-145 [facility] Comment on above: Performed By: #### C MADM, BNP, CMP #### [facility] [address] [address] [address] Dianna Alcocer Urea nitrogen [Mass/Vol] 13.0 mg/dL Normal 7.0-18.[address] [facility] Comment on above: Performed By: #### C MADM, BNP, CMP #### [facility] [address] [place] [address] Dr. Dianna Alcocer Urea nitrogen/Creatinine [Mass ratio] 13.7 mg/mg Normal [facility] Comment on above: Performed By: #### C MADM, BNP, CMP #### [facility] [address] [place] [address] Dr. Dianna Alcocer MG MAMM DIAGNOSTIC 3D KIRT CA Don 02-09-2022 MG MAMM DIAGNOSTIC 3D KIRT CAD Patient: JOSEFA CASTILLO Exam Date: 02/09/2022 : 1940 Gender:F Ordering : DR TITO HILLMAN . Admission #: [id number] Family : Order #: [id number] CLICK HERE TO VIEW EXAM RADIOLOGY REPORT PROCEDURE: MAMMOGRAM DIAGNOSTIC 3D BILATERAL CAD COMPARISON: MG MAMM KIRT DIAG W CAD, 11/27/2016. MG MAMM SCREEN KIRT W CAD, 08/15/2019. INDICATIONS: Pain of breast Calculator Name NCI Breast Cancer Risk Assessment Tool 5 Year Breast Cancer Risk 4.50% Lifetime Breast Cancer Risk 6.40% Personal Breast Cancer No Personal Ovarian Cancer No Treatments Chemo pills Family Cancers Mother with breast cancer at age 70; Aunt-maternal with breast cancer at age 42; Mother with eye cancer at age 70; Uncle-paternal with prostate cancer at age 60; Aunt-maternal with eye cancer at age 50; Sister with skin cancer at age 38; Aunt-paternal with breast cancer at age 74; Uncle-paternal with prostate cancer at age 70. LOCATION: [facility] BREAST COMPOSITION: Almost entirely fatty. FINDINGS: DIAGNOSTIC CATEGORY 2--BENIGN FINDING: RIGHT BREAST: No significant suspicious finding. Scattered benign-appearing calcifications are present. No significant change has occurred. LEFT BREAST: No significant suspicious finding. Loop recorder device within the medial breast tissue. No significant change has occurred. RECOMMENDATIONS: ROUTINE MAMMOGRAM AND CLINICAL EVALUATION IN 12 MONTHS. PLEASE NOTE: A NORMAL MAMMOGRAM DOES NOT EXCLUDE THE POSSIBILITY OF BREAST CANCER. A CLINICALLY SUSPICIOUS PALPABLE LUMP SHOULD BE BIOPSIED. Dictated by: Luz Grider M.D. on 02/09/2022 at 08:25 Approved by: Luz Grider M.D. on 02/09/2022 at 08:27 Normal [facility] Vital Signs Date Time Vital Sign Value Performing Clinician Windy khan 12-01-2023 13:06-0500 Body height 157.5 cm Jr. Stepanic DO Work Phone: [facility] 12-01-2023 13:06-0500 Body mass index (BMI) [Ratio] 19.94 kg/m2 Jr. Stepanic DO Work Phone: [facility] 12-01-2023 13:06-0500 Body weight 49.44 kg Jr. Stepanic DO Work Phone: [facility] 07-29-2023 10:04-0400 Body temperature 97.3 [degF] Rod Roman MD Work Phone: [facility] 07-29-2023 10:04-0400 Body weight 56.97 kg Rod Roman MD Work Phone: [facility] 07-29-2023 10:04-0400 Diastolic blood pressure 71 mm[Hg] Rod Roman MD Work Phone: [facility] 07-29-2023 10:04-0400 Heart rate 63 /min Rod Roman MD Work Phone: [facility] 07-29-2023 10:04-0400 Respiratory rate 16 /min Rod Roman MD Work Phone: [facility] 07-29-2023 10:04-0400 SaO2% (BldA) [Mass fraction] 97 % Rod Roman MD Work Phone: [facility] 07-29-2023 10:04-0400 Systolic blood pressure 175 mm[Hg] Rod Roman MD Work Phone: [facility] 04-08-2023 10:14-0400 Body height 157.5 cm Rod Roman MD Work Phone: [facility] 04-08-2023 10:14-0400 Body temperature 97.81 [degF] Rod Roman MD Work Phone: [facility] 04-08-2023 10:14-0400 Body weight 56.7 kg Rod Roman MD Work Phone: [facility] 04-08-2023 10:14-0400 Diastolic blood pressure 74 mm[Hg] Rod Roman MD Work Phone: [facility] 04-08-2023 10:14-0400 Heart rate 77 /min Rod Roman MD Work Phone: [facility] 04-08-2023 10:14-0400 Respiratory rate 16 /min Rod Roman MD Work Phone: [facility] 04-08-2023 10:14-0400 SaO2% (BldA) [Mass fraction] 99 % Rod Roman MD Work Phone: [facility] 04-08-2023 10:14-0400 Systolic blood pressure 161 mm[Hg] Rod Roman MD Work Phone: [facility] 12-17-2022 10:29-0500 Body height 157.5 cm Rod Roman MD Work Phone: [facility] 12-17-2022 10:29-0500 Body temperature 97.5 [degF] Rod Roman MD Work Phone: [facility] 12-17-2022 10:29-0500 Body weight 55.97 kg Rod Roman MD Work Phone: [facility] 12-17-2022 10:29-0500 Diastolic blood pressure 81 mm[Hg] Rod Roman MD Work Phone: [facility] 12-17-2022 10:29-0500 Heart rate 66 /min Rod Roman MD Work Phone: [facility] 12-17-2022 10:29-0500 Respiratory rate 16 /min Rod Roman MD Work Phone: [facility] 12-17-2022 10:29-0500 SaO2% (BldA) [Mass fraction] 97 % Rod Roman MD Work Phone: [facility] 12-17-2022 10:29-0500 Systolic blood pressure 159 mm[Hg] Rod Roman MD Work Phone: [facility] 07-30-2022 09:55-0400 Body height 157.5 cm Rod Roman MD Work Phone: [facility] 07-30-2022 09:55-0400 Body temperature 97.59 [degF] Rod Roman MD Work Phone: [facility] 07-30-2022 09:55-0400 Body weight 58.06 kg Rod Roman MD Work Phone: [facility] 07-30-2022 09:55-0400 Diastolic blood pressure 71 mm[Hg] Rod Roman MD Work Phone: [facility] 07-30-2022 09:55-0400 Heart rate 70 /min Rod Roman MD Work Phone: [facility] 07-30-2022 09:55-0400 Respiratory rate 16 /min Rod Roman MD Work Phone: [facility] 07-30-2022 09:55-0400 SaO2% (BldA) [Mass fraction] 98 % Rod Roman MD Work Phone: [facility] 07-30-2022 09:55-0400 Systolic blood pressure 153 mm[Hg] Rod Roman MD Work Phone: [facility] 04-30-2022 11:26-0400 Body temperature 97.11 [degF] Ma Sand Work Phone: [facility] 04-30-2022 11:26-0400 Diastolic blood pressure 56 mm[Hg] Ma Sand Work Phone: [facility] 04-30-2022 11:26-0400 Heart rate 68 /min Ma Sand Work Phone: [facility] 04-30-2022 11:26-0400 Respiratory rate 16 /min Ma Sand Work Phone: [facility] 04-30-2022 11:26-0400 SaO2% (BldA) [Mass fraction] 98 % Ma Sand Work Phone: [facility] 04-30-2022 11:26-0400 Systolic blood pressure 113 mm[Hg] Ma Sand Work Phone: [facility] 04-02-2022 11:24-0400 Body height 158.1 cm Ma Sand Work Phone: [facility] 04-02-2022 11:24-0400 Body temperature 97.9 [degF] Ma Sand Work Phone: [facility] 04-02-2022 11:24-0400 Body weight 58.51 kg Ma Sand Work Phone: [facility] 04-02-2022 11:24-0400 Diastolic blood pressure 52 mm[Hg] Ma Sand Work Phone: [facility] 04-02-2022 11:24-0400 Heart rate 66 /min Ma Sand Work Phone: [facility] 04-02-2022 11:24-0400 Respiratory rate 16 /min Ma Sand Work Phone: [facility] 04-02-2022 11:24-0400 SaO2% (BldA) [Mass fraction] 97 % Ma Sand Work Phone: [facility] 04-02-2022 11:24-0400 Systolic blood pressure 119 mm[Hg] Ma Sand Work Phone: [facility] 03-05-2022 10:58-0400 Body height 158.1 cm Rod Roman MD Work Phone: [facility] 03-05-2022 10:58-0400 Body temperature 97.81 [degF] Rod Roman MD Work Phone: [facility] 03-05-2022 10:58-0400 Body weight 58.79 kg Rod Roman MD Work Phone: [facility] 03-05-2022 10:58-0400 Diastolic blood pressure 87 mm[Hg] Rod Roman MD Work Phone: [facility] 03-05-2022 10:58-0400 Heart rate 64 /min Rod Roman MD Work Phone: [facility] 03-05-2022 10:58-0400 Respiratory rate 16 /min Rod Roman MD Work Phone: [facility] 03-05-2022 10:58-0400 SaO2% (BldA) [Mass fraction] 98 % Rod Roman MD Work Phone: [facility] 03-05-2022 10:58-0400 Systolic blood pressure 178 mm[Hg] Rod Roman MD Work Phone: [facility] Encounters Encounter Date Encounter Type Care Provider Facility Start: 04-04-2024 Telephone encounter Rod bird MD Work Phone: Hematology/Oncology Comment on above: Lab Orders Start: 02-21-2024 End: 02-21-2024 ambulatory [facility] Start: 01-24-2024 End: 01-24-2024 ambulatory TITO HILLMAN Not Available Start: 01-05-2024 End: 01-05-2024 ambulatory [facility] Start: 12-15-2023 End: 12-22-2023 Evaluation and management of inpatient [facility] Start: 12-01-2023 End: 12-02-2023 ambulatory KAYLAN HERRERA Not Available Start: 12-01-2023 End: 12-01-2023 Office outpatient visit 25 minutes Jr. 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); Essential thrombocythemia (HCC) Start: 07-29-2023 End: 07-29-2023 ambulatory TITO HILLMAN Facility:[facility] Start: 04-08-2023 End: 04-08-2023 Nursing evaluation of patient and report Martha Rizvi Work Phone: Hematology/Oncology Comment on above: 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) Start: 04-08-2023 End: 04-08-2023 Office outpatient visit 15 minutes Rod Roman MD Work Phone: Hematology/Oncology Comment on above: Essential thrombocyt hemia (HCC) (Primary Dx); Megaloblastic anemia due to vitamin B12 deficiency Start: 04-08-2023 End: 04-08-2023 ambulatory TITO HILLMAN Facility:[facility] Start: 02-19-2023 ambulatory [facility] Start: 02-19-2023 Encounter for preprocedural cardiovascular examination [facility] Start: 01-25-2023 End: 01-26-[address] TITO HILLMAN Facility:[facility] Start: 12-17-2022 End: 12-17-2022 Nursing evaluation of patient and report Martha Rizvi Work Phone: Hematology/Oncology Comment on above: 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) Start: 12-17-2022 End: 12-17-2022 Office outpatient visit 15 minutes Rod Roman MD Work Phone: Hematology/Oncology Comment on above: Essential thrombocyt hemia (HCC) (Primary Dx); Megaloblastic anemia due to vitamin B12 deficiency; Iron deficiency anemia, unspecified iron deficiency anemia type Start: 11-12-2022 Telephone encounter Rod bird MD Work Phone: Hematology/Oncology Comment on above: B-12 Injection Start: 08-24-2022 End: 08-24-[address] TITO HILLMAN Facility:[facility] Start: 08-23-2022 End: 08-23-[address] TITO HILLMAN Facility:[facility] Start: 07-30-2022 End: 07-30-2022 Nursing evaluation of patient and report Martha Rizvi Work Phone: Hematology/Oncology Comment on above: 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) Start: 07-30-2022 End: 07-30-2022 ambulatory Rod Roman MD Work Phone: Hematology/Oncology Comment on above: Essential thrombocyt hemia (HCC) (Primary Dx); Iron deficiency anemia, unspecified iron deficiency anemia type Start: 07-30-2022 End: 07-30-2022 Patient encounter procedure Rod Roman MD Work Phone: [facility] Start: 07-28-2022 End: 07-28-[address] TITO HILLMAN Facility:[facility] Start: 05-07-2022 End: 05-08-[address] TITO HILLMAN Facility: Start: 04-30-2022 End: 04-30-2022 Nursing evaluation of patient and report Martha Rizvi Work Phone: Hematology/Oncology Comment on above: 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) Start: 04-02-2022 End: 04-02-2022 Nursing evaluation of patient and report Martha Rizvi Work Phone: Hematology/Oncology Comment on above: 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) Start: 03-17-2022 End: 03-17-2022 ambulatory SHAIKH Mary MACIAS Facility:[facility] Start: 03-05-2022 End: 03-05-2022 Nursing evaluation of patient and report Martha Rizvi Work Phone: Hematology/Oncology Comment on above: 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) Start: 03-05-2022 End: 03-05-2022 ambulatory Rod Roman MD Work Phone: Hematology/Oncology Comment on above: Essential thrombocyt hemia (HCC) (Primary Dx); Megaloblastic anemia due to vitamin B12 deficiency; Osteopenia of multiple sites Start: 03-05-2022 End: 03-05-2022 Patient encounter procedure Rod Roman MD Work Phone: [facility] Start: 02-09-2022 End: 02-10-[address] TITO HILLMAN Facility: Start: 10-31-2018 End: 11-12-2018 Patient encounter procedure DESTINEE Morris BERRY Facility:[facility] Plan of Treatment Date Care Activity Detail Author Start: 07-29-2026 Diabetes Screening Diabetes Screenin g [facility] Start: 04-08-2026 DIABETES SCREEN DIABETES SCREEN [facility] Start: 12-17-2025 DIABETES SCREEN DIABETES SCREEN [facility] Start: 07-30-2025 DIABETES SCREEN DIABETES SCREEN [facility] Start: 04-30-2025 DIABETES SCREEN DIABETES SCREEN [facility] Start: 04-02-2025 DIABETES SCREEN DIABETES SCREEN [facility] Start: 03-05-2025 DIABETES SCREEN DIABETES SCREEN [facility] Start: 07-02-2024 Influenza vaccination Influenz a Vaccine (Season Ended) [facility] Start: 04-17-2024 End: 04-04-2025 CBC W Auto Differential panel - Blood COMPLETE BLOOD COUNT AND DIFFERENTIAL Lab Routine 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 Expected: 04/17/2024 (Approximate), Expires: 04/04/[address] [facility] Comment on above: Expected: 04/17/2024 (Approximate), Expires: 04/04/2025 Start: 04-17-2024 End: 04-04-2025 Comprehensive metabolic 2000 panel - Serum or Plasma COMPREHENSIVE METABOLIC PANEL Lab Routine 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 Expected: 04/17/2024 (Approximate), Expires: 04/04/[address] [facility] Comment on above: Expected: 04/17/2024 (Approximate), Expires: 04/04/2025 Start: 04-17-2024 End: 04-04-2025 Lactate dehydrogenase [Enzymatic activity/volume] in Serum or Plasma LACTATE DEHYDROGENASE Lab Routine 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 Expected: 04/17/2024 (Approximate), Expires: 04/04/2025 [facility] Work Phone: Comment on above: Expected: 04/17/2024 (Approximate), Expires: 04/04/2025 Start: 04-17-2024 End: 04-17-2024 Follow-up encounter 04/17/2024 11:15 AM EDT Visit (SP) Office Hematology/Oncology [address] [place] [address] Rod Roman MD [address] [place] [address] follow up Hematology/Oncology Comment on above: follow up Start: 04-17-2024 End: 04-17-2024 Patient encounter procedure 04/17/2024 11:00 AM EDT Office Visit [facility] [address] [place] [place] [address] lab [facility] Comment on above: lab Start: 01-24-2024 End: 01-24-2024 Patient encounter procedure 01/24/2024 10:15 AM EDT Office Visit [facility] [address] [place] [address] Tito Hillman MD [address] [place] [address] [facility] Start: 11-18-2023 End: 07-29-2024 CBC W Auto Differential panel - Blood CBC + DIFF Lab Routine 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 (HCC) Expected: 11/18/2023 (Approximate), Expires: 07/29/2024 [facility] Work Phone: Comment on above: Expected: 11/18/2023 (Approximate), Expires: 07/29/2024 Start: 11-18-2023 End: 07-29-2024 Cobalamin (Vitamin B12) [Mass/volume] in Serum or Plasma VITAMIN B12 BLOOD Lab Routine 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 (HCC) Expected: 11/18/2023 (Approximate), Expires: 07/29/2024 [facility] Work Phone: Comment on above: Expected: 11/18/2023 (Approximate), Expires: 07/29/2024 Start: 11-18-2023 End: 07-29-2024 Comprehensive metabolic 2000 panel - Serum or Plasma COMP METABOLIC PANEL Lab Routine 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 (HCC) Expected: 11/18/2023 (Approximate), Expires: 07/29/2024 [facility] Work Phone: Comment on above: Expected: 11/18/2023 (Approximate), Expires: 07/29/2024 Start: 11-18-2023 End: 07-29-2024 Ferritin [Mass/volume] in Serum or Plasma FERRITIN BLD Lab Routine 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 (HCC) Expected: 11/18/2023 (Approximate), Expires: 07/29/2024 [facility] Work Phone: Comment on above: Expected: 11/18/2023 (Approximate), Expires: 07/29/2024 Start: 11-18-2023 End: 07-29-2024 Folate [Mass/volume] in Serum or Plasma FOLATE SERUM Lab Routine 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 (HCC) Expected: 11/18/2023 (Approximate), Expires: 07/29/2024 [facility] Work Phone: Comment on above: Expected: 11/18/2023 (Approximate), Expires: 07/29/2024 Start: 11-18-2023 End: 07-29-2024 Iron and Iron binding capacity panel - Serum or Plasma IRON + TIBC Lab Routine 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 (HCC) Expected: 11/18/2023 (Approximate), Expires: 07/29/2024 [facility] Work Phone: Comment on above: Expected: 11/18/2023 (Approximate), Expires: 07/29/2024 Start: 11-01-2023 Advance Directive Discussion Advance Directive Discussion [facility] Start: 11-01-2023 Behavioral Health Screening Behavioral Health Screening [facility] Start: 09-23-2023 End: 07-29-2024 CBC W Auto Differential panel - Blood CBC + DIFF Lab Routine 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 (HCC) Expected: 09/23/2023 (Approximate), Expires: 07/29/2024 [facility] Work Phone: Comment on above: Expected: 09/23/2023 (Approximate), Expires: 07/29/2024 Start: 09-23-2023 End: 07-29-2024 Cobalamin (Vitamin B12) [Mass/volume] in Serum or Plasma VITAMIN B12 BLOOD Lab Routine 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 (HCC) Expected: 09/23/2023 (Approximate), Expires: 07/29/2024 [facility] Work Phone: Comment on above: Expected: 09/23/2023 (Approximate), Expires: 07/29/2024 Start: 09-23-2023 End: 07-29-2024 Comprehensive metabolic 2000 panel - Serum or Plasma COMP METABOLIC PANEL Lab Routine 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 (HCC) Expected: 09/23/2023 (Approximate), Expires: 07/29/2024 [facility] Work Phone: Comment on above: Expected: 09/23/2023 (Approximate), Expires: 07/29/2024 Start: 09-23-2023 End: 07-29-2024 Ferritin [Mass/volume] in Serum or Plasma FERRITIN BLD Lab Routine 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 (HCC) Expected: 09/23/2023 (Approximate), Expires: 07/29/2024 [facility] Work Phone: Comment on above: Expected: 09/23/2023 (Approximate), Expires: 07/29/2024 Start: 09-23-2023 End: 07-29-2024 Folate [Mass/volume] in Serum or Plasma FOLATE SERUM Lab Routine 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 (HCC) Expected: 09/23/2023 (Approximate), Expires: 07/29/2024 [facility] Work Phone: Comment on above: Expected: 09/23/2023 (Approximate), Expires: 07/29/2024 Start: 09-23-2023 End: 07-29-2024 Iron and Iron binding capacity panel - Serum or Plasma IRON + TIBC Lab Routine 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 (HCC) Expected: 09/23/2023 (Approximate), Expires: 07/29/2024 [facility] Work Phone: Comment on above: Expected: 09/23/2023 (Approximate), Expires: 07/29/2024 Start: 07-02-2023 Covid-19 Vaccine () Covid-19 Vaccine () [facility] Start: 07-02-2023 Influenza vaccination Influenza Vacc ine (#1) [facility] Start: 12-19-2022 Covid-19 Vaccine (6 - Pfizer series) Covid-19 Vaccine (6 - Pfizer series) [facility] Start: 11-01-2022 ADVANCE DIRECTIVE DISCUSSION ADVANCE DIRECTIVE DISCUSSION [facility] Start: 11-01-2022 DEPRESSION ASSESSMENT DEPRESSION ASS ESSMENT [facility] Start: 07-18-2022 COVID-19 VACCINE (5 - Booster for Pfizer series) COVID-19 VACCINE (5 - Booster for Pfizer series) [facility] Start: 07-02-2022 Influenza vaccination INFLUENZA (#1) [facility] Start: 05-28-2022 End: 07-28-2022 VITAMIN B12 BLOOD VITAMIN B12 BLOOD Lab Routine 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 Osteopenia of multiple sites Expected: 05/28/2022 (Approximate), Expires: 07/28/2022 [facility] Work Phone: Comment on above: Expected: 05/28/2022 (Approximate), Expires: 07/28/2022 Start: 12-28-2021 COVID-19 VACCINE (4 - Booster for Pfizer series) COVID-19 VACCINE (4 - Booster for Pfizer series) [facility] Start: 11-01-2021 ADVANCE DIRECTIVE DISCUSSION ADVANCE DIRECTIVE DISCUSSION [facility] Start: 11-01-2021 DEPRESSION ASSESSMENT DEPRESSION ASS ESSMENT [facility] Start: 2005 BONE DENSITY BONE DENSITY [facility] Start: 2005 Bone Density Screening Bone Density Screening [facility] Start: 2005 Screening for osteoporosis Bone Density Screening [facility] Start: 2000 RSV Vaccine (1 - 1-d ose 60+ series) RSV Vaccine (1 - 1-dose 60+ series) [facility] Start: 1990 SHINGRIX VACCINE (1 of 2) SHINGRIX VACCINE (1 of 2) [facility] Start: 1959 Urine microalbumin profile [facility] Start: 1940 Medicare Annual Wellness (AWV) Medicare Annual Wellness (AWV) [facility] XR Hip - left 3 Views XR hip lef t 2 or 3 views Imaging Routine Left hip pain 12/01/2023 1:10 PM EST [facility] Work Phone: [facility] Immunizations Immunization Date Immunization Notes Care Provider Fa [facility] 08-18-2022 influenza, high-dose , quadrivalent vaccine (FLUZONE HIGH DOSE QUADRIVALENT) Rod Roman MD Work Phone: [facility] 08-18-2022 influenza virus vacc ine, unspecified formulation Rod Roman MD Work Phone: [facility] 08-06-2021 influenza, high-dose , quadrivalent vaccine (FLUZONE HIGH DOSE QUADRIVALENT) Rod Roman MD Work Phone: [facility] 12-31-2020 COVID-19 vaccine, ag e 12+ yr (PFIZER-BIONTECH - PURPLE TOP) Rod Roman MD Work Phone: [facility] 11-30-2020 COVID-19 vaccine, ag e 12+ yr (PFIZER-BIONTECH - PURPLE TOP) Rod Roman MD Work Phone: [facility] 08-19-2020 influenza, high-dose , quadrivalent vaccine (FLUZONE HIGH DOSE QUADRIVALENT) Rod Roman MD Work Phone: [facility] 09-09-2019 influenza, high dose seasonal, preservative-free Rod Roman MD Work Phone: [facility] 07-12-2018 influenza, high dose seasonal, preservative-free Rod Roman MD Work Phone: [facility] 09-25-2017 influenza, high dose seasonal, preservative-free Rod Roman MD Work Phone: [facility] 08-12-2016 influenza, injectabl e, quadrivalent, preservative free Rod Roman MD Work Phone: [facility] 08-12-2016 pneumococcal polysaccharide vaccine, 23 valent Rod Roman MD Work Phone: [facility] 07-11-2016 influenza, high dose seasonal, preservative-free Rod Roman MD Work Phone: [facility] 06-15-2015 influenza, high dose seasonal, preservative-free Rod Roman MD Work Phone: [facility] 06-15-2015 pneumococcal conjuga te vaccine, 13 valent Rod Roman MD [facility] [facility] 08-08-2014 influenza virus vacc ine, whole virus Rod Roman MD Work Phone: [facility] 07-12-2010 pneumococcal conjuga te vaccine, 7 valent Rod Roman MD Work Phone: [facility] Payers Date Payer Category Payer Medicare MEDICARE MEDICAR E A AND B [id number] 2005-Present [phone] [address] [address] [place] [address] Medicare [id number] 2005 Medicare [id number] [id number] 2005 Unknown HOSPITAL[facility] GENERIC MEDICAL GENERIC [id number] 2005-Present [phone] [address] [address] [place] [id number] Indemnity [id number] 2005 Unknown [id number] [id number] .[id number] 1959 Medicare [id number] 1959 Unknown [id number] 1940 Unknown [id number] 2.16.840.1.989661.3.579.2.647 1940 Unknown [id number] 2.16.840.1.516860.3.579.2.593 1940 Unknown [id number] 2.16.840.1.889276.3.579.2.593 1940 Unknown [id number] 2.16.840.1.819302.3.579.2.593 1940 Unknown [id number] 2.16.840.1.853928.3.579.2.593 1940 Unknown [id number] 2.16.840.1.431912.3.579.2.593 1940 Unknown [id number] 2.16.840.1.522555.3.579.2.593 1940 Unknown [id number] 2.16.840.1.780626.3.579.2.593 1940 Unknown [id number] 2.16.840.1.744349.3.579.2.125 9 1940 Unknown [id number] 2.16.840.1.411508.3.579.2.125 9 1940 Unknown [id number] 2.16.840.1.144984.3.579.2.125 9 1940 Unknown [id number] 2.16.840.1.948714.3.579.2.125 9 1940 Unknown [id number] 2.16.840.1.219817.3.579.2.125 9 1940 Unknown [id number] 2.16.840.1.270577.3.579.2.175 1940 Unknown [id number] 2.16.840.1.614157.3.579.2.175 1940 Unknown [id number] 2.16.840.1.512381.3.579.2.175 Medicare [id number] Social History Date Type Detail Facility Start: 11-11-2020 End: 10-15-2023 Tobacco smoking status NHIS Ex-smoker [facility] Start: 12-30-2009 End: 08-01-2020 History of tobacco use Current smoker [facility] Start: 11-11-2020 End: 04-08-2023 Cigarettes smoked current (pack per day) - Reported [address] [facility] Start: 11-11-2020 Tobacco use and exposure Smoke less tobacco non-user [facility] Start: 03-05-2022 End: 04-08-2023 Alcohol intake Current drinker of alcohol (finding) [facility] Start: 1940 Sex Assigned At Not on file [facility] Start: 02-23-2022 End: 07-30-2022 Exposure to SARS-CoV-2 (event) Not sure [facility] Start: 12-30-2009 End: 08-01-2020 History of tobacco use Cigarette Smoker [facility] Start: 04-08-2023 End: 12-01-2023 Tobacco use panel [facility] Adult Depression Scr eening Assessment [address] [facility] Clinical Notes 01-30-2022 to 04-04-2024 Telephone Encounter - Janeth Bright MA - 04/04/2024 10:31 AM EDTTelephone Encounter - Janeth Bright MA - 04/04/2024 10:31 AM EDTJrMarguerite Stewart DO - 12/01/2023 1:00 PM EST Note Date & Type Note Facility 04-04-2024 Telephone encounter Note Patient has an appt on 04/17/24. Would you like labs-her labs are , please place orders. Janeth Bright MA [facility] 04-04-2024 Miscellaneous Notes Patient has an appt on 04/17/24. Would you like labs-her labs are , please place orders. Janeth Bright MA documented in this encounter [facility] 12-01-2023 History of Presen t illness Narrative Images from the original note were not included. HISTORY OF PRESENT ILLNESS: EST PT Josefa Castillo is an 83 y.o. @ female. (EST PT; MOST RECENT VISIT WITH ALEXANDREA) S/P (L) HIP FX W/ ORIF 08/26/23 (13WKS 6DAY) @ [facility] - PT C/O PAIN XRAY LT HIP TODAY CHANGE 12/01/23 XRAYS 10/22/23 IN CHANGE / EPIC C/O PAIN- PT STATES PAIN IS BAD- DIFFICULTY SLEEPING- USES WALKER TO AMBULATE- +NORCO- +WEAKNESS- PAIN IS CONSTANT - +WAKES HS- +INSTABILITY ALLERGIES: Allergies Allergen Reactions Morphine Rash and GI intolerance Sulfa Antibiotics Swelling and Rash HOME MEDICATIONS: Current Outpatient Medications Medication Instructions aspirin 81 mg, Oral, Daily RT atorvastatin (Lipitor) 20 MG tablet 1 tablet, Oral, Nightly celecoxib (CELEBREX) 100 mg, Oral, 2 times daily HYDROcodone-acetaminophen ([place]) 5-325 MG tablet 1 tablet, Oral, 4 times daily PRN hydroxyurea (Hydrea) 500 MG capsule 1 capsule, Oral, Daily isosorbide mononitrate ER (Imdur) 60 MG 24 hr tablet 1 tablet, Oral, Daily lisinopril 5 MG tablet 1 tablet, Oral, Daily metoprolol tartrate (Lopressor) 25 MG tablet 1 tablet, Oral, 2 times daily pantoprazole (ProtoNix) 40 MG EC tablet pantoprazole 40 mg tablet,delayed release Take 1 tablet every day by oral route. PARoxetine (PAXIL) 40 mg, Oral, Daily PARoxetine (PAXIL) 40 mg, Oral, Daily RT QUEtiapine (SEROQUEL) 25 mg, Oral, Nightly PHYSICAL EXAM: Hip Musculoskeletal Exam Gait Antalgic: left Limp: left Limp comment: + start up soreness Assistive device: walker Inspection Leg length disparity: no discrepancy Left Erythema: none Ecchymosis: none Edema: none Deformity: none Previous incision: lateral Incision: well-healed Incisional drainage: none Inspection additional comments: No erythema, discharge or drainage. Palpation Left Left hip palpation is normal. Increased warmth: none Tenderness: present (w/any ROM) Range of Motion Left Active ROM: abnormal and pain. Passive ROM: abnormal and pain. Range of motion additional comments: Denies pain with gentle rom. Strength Left Left hip strength is normal. Extension: 4+/5. Flexion: 4+/5. Internal rotation: 5/5. External rotation: 5/5. Adduction: 4+/5. Abduction: 5/5. Neurovascular Left Left hip neurovascular exam is normal. Pulses - PT: normal Posterior tibial: 2+ Vitals: Body mass index is 19.94 kg/m . Tobacco Use: Medium Risk (12/01/2023) Patient History Smoking Tobacco Use: Former Smokeless Tobacco Use: Unknown Passive Exposure: Not on file Alcohol Use: Not on file IMAGING: Procedures Orders Placed This Encounter Procedures XR hip left 2 or 3 views Order Specific Question: Reason for exam: Answer: PAIN Ambulatory referral to Orthopaedic Surgery Dr. George / Dr. Gay ; Please call patient to schedule, thank you Evaluate and treat (L) hip Standing Status: Future Standing Expiration Date: 05/31/2024 Referral Priority: Routine Referral Type: Consultation Referral Reason: Specialty Services Required Referred to Provider: Aristeo George MD Requested Specialty: Orthopaedic Surgery Number of Visits Requested: 1 ASSESSMENT: ICD-10-CM 1. Left hip pain M25.552 XR hip left 2 or 3 views 2. Pain from implanted hardware, initial encounter T85.848A Ambulatory referral to Orthopaedic Surgery PLAN: We have answered all the patients questions and explained the patients condition, decision making and plan including the risks and benefits associated with said plan in layman''s terms in a language the patient could understand easily. If patient''s symptoms significantly worsen and they cannot get a hold of us or their family physician, we have recommended that the patient proceed to the nearest emergency department (room). Dr. Stewart obtained history and examined the patient, I am acting as scribe for Dr. Stewart/destin, PLAN: We have discussed (L) hip xrays with patient at bedside. After examimination today we are recommending a referral to Dr. Christine in [place] with patient's verbal agreeance. We have discussed her HEP and restrictions and will see her back on a prn basis. Lupe Field MA documented in this encounter [facility] 07-29-2023 Instructions Rdo Roman MD - 07/29/2023 10:45 AM EDT Labs to include B12 in 8 weeks. Labs every 8 weeks, CBC, CMP Continue current regimen of Hydrea 500 mg daily Wednesday - Wednesday but increase to 2 tablets (1000 mg) on Saturdays and Sundays) B12 Shot today and every 8 weeks. RTC in 16 weeks documented in this encounter [facility] 07-29-2023 History of Presen t illness Narrative Images from the original note were not included. NAME: Josefa Castillo CLINIC NO.: [id number] DATE OF SERVICE: July 29, 2023 (Carlos) Some elements in this clinic note that are critical to medical decision making have been carefully reviewed and included from a prior clinic note dated: April 08, 2023 (Carlos) Referring Provider: Tito Hillman MD Additional Clinicians involved in Josefa Castillo's care: CC: Follow up ASSESSMENT: 1. ET: 83 year old woman with essential thrombocythemia. She has been treated with Hydrea since 2001 when she suffered a mini-stroke and was found to have thrombocytosis while living in [place]. She has been on various dosing through the years, but as of the last 5 years, she had consistently been on 500 mg daily. 08/21/2021 she was increased for a brief period of time but then returned to her typical dose of 500 mg daily where she remains. Labs remain stable. Platelet Count (k/uL) Date Value 07/29/2023 591 12/11/2021 473 2. B12 deficiency Will continue with B12 every other month 3. Basal cell ca of right buddhist April 2023 PLAN: Labs to include B12 in 8 weeks. Labs every 8 weeks, CBC, CMP Continue current regimen of Hydrea 500 mg daily Wednesday - Wednesday but increase to 2 tablets (1000 mg) on Saturdays and Sundays) B12 Shot today and every 8 weeks. RTC in 16 weeks HPI: Updated Visit, July 29, 2023: Right buddhist was not a melanoma - basal cell. Labs reviewed and adjusted hydrea on weekends Otherwise is doing very well. Updated Visit, April 08, 2023: Says she's not doing well. 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 Continues B12 shots every 8 weeks Platelets 580 today - a little high but can adjust in future if needed. Updated Visit, December 17, 2022: Doing very well. Labs staying stable. Has skipped B12 because her daughter was very sick and she couldn't get in to the office. Will follow up with neurology for headaches that persist. Updated Visit, July 30, 2022: Josefa is 82 years old and returns today with several issues outside of what we typically see her for. She has been complaining of pain on the left side of head over the buddhist and into the jaw. No vision changes associated with pain. Intermittent and dull and pounding. Right buddhist at the corner of her eye lid is a small scab that may need further evaluation by derm. Would defer to Dr. Hillman. Review of laboratories Feels stable disease on current regimen of Hydrea. Updated Visit, March 05, 2022: Doing well on current regimen of care. No complaints. Continues to benefit from B12 shots. Updated Visit, December 11, 2021: Doing well aside from chronic arthralgias and associated back pain. Labs stable. B12 due today. Updated Visit, September 18, 2021: Josefa is doing very well today and platelets have stabilized on current regimen of hydrea. She has no complaints. Updated Visit, September 04, 2021: Mrs. Castillo returns today for a 2 week follow up. At her previous visit we increased her Hydrea to 500 mg daily except 1000 mg on days Wednesday, Wednesday and Wednesday due to an upward trend of her platelets and a bout of epistaxis. She has tolerated the change in dose and confirmed she is taking it appropriately. She has not had any additional bleeding episodes either. Updated Visit, August 21, 2021: Mrs. Castillo returns for follow up. She has been on Hydrea 500 mg daily for the last 5 years along with daily aspirin. Prior to that, she was on various dosing of hydrea. She has been feeling well. She did have a nose bleed 2 weeks ago that lasted about 10 minutes. No other bleeding. No evidence of clots. No new meds or other medical changes. 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 Counts remain stable and she states she feels a boost of energy whenever she gets her B12 shot. Will continue current plan. 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 She continues to do well but has been having some intermittent chest pain. Dr. Hillman ordered a stress test for the intermittent chest pain and felt that it could be cadiac vs. Reflux. Of note, she quit smoking 08/23/2020. She continues to require vitamin B12 injections and counts remain stable on current dosing of Hydrea. Updated Visit, November 11, 2020: 80 yo woman with ET controlled with hydrea 500 mg daily. Doing well with 2 new great granchildren born in and in the New year. Counts well controlled.Feels good when she gets her B12 and has a surge of energy. Updated Visit, August 19, 2020: Josefa Castillo returns for three-month follow-up. She remains on Hydrea 500 mg daily and is tolerating it well. She denies any bleeding or abnormal bruising. No signs of blood clots. She was recently treated for a urinary tract infection and finished an antibiotic last Wednesday. She complains of problems with her tongue since last . She reports burning to the roof of her mouth. No obvious mouth sores. Otherwise, she has been doing well. Updated Visit, May 20, 2020: 79 yo woman seen for Essential Thrombocythemia and B12 deficiency hadn't gotten her monthly B12 due to COVID. Now feels tired. Labs were reviewed after patient left. plt = 464. Updated Visit, February 07, 2020: Conducted by telephone This is a 79-year-old woman who was initially diagnosed with essential thrombocythemia 2001. She has been on hydrea. She was following with Dr. Bower in [facility]. Initially on 6 pills of hydrea. 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 She has not required other treatments. Also a history of iron deficiency and required iron infusions occasionally. 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 She moved here to live with her daughter and son in law and has been followed in this office since then. In May 2018 she underwent a Irasema fundoplication for paraesophageal hernia and has had chronic bowel problems since then. She has lost almost 117 pounds in relation to this. She is otherwise doing well but has chronic pain which is managed by her primary care physician and is unchanged. She would like to get her laboratories done at her PCPs office and once I have those results we can discuss any changes to her current regimen of therapy. REVIEW OF SYSTEMS Per HPI and otherwise negative by full review of organ systems. ECOG PERFORMANCE STATUS: 1 PHYSICAL EXAMINATION: Vitals: BP 175/71 Pulse 63 Temp (Src) 97.3 (Temporal) Resp 16 Wt 125 lb 9.6 oz (57.0kg) SpO2 97% Body surface area is 1.58 meters squared. Exam limited to gross visualization where appropriate. Gen.: This is an age-appropriate patient in no acute distress. Head: Appears atraumatic with no visible lesions. Eyes: Pupils equally round and reactive to light, extraocular muscles are intact. Neck: Supple. Respiratory: Appears to be respiring comfortably. Neurologic: Nonfocal to gross visualization. Alert and oriented 3. Psychiatric: No evidence of inappropriate anxiety or depression. Skin: Visible areas of skin without rash, lesions, wounds or petechiae. ALLERGIES: ALLERGIES Allergen Reactions Morphine Unknown ? Per patient vomiting with pills but able to tolerate IV Upset stomach Sulfa (Sulfonamide * Unknown Stomach didn't tolerate it Upset stomach Sulfasalazine Unknown Sulfur Unknown MEDICATIONS: QUEtiapine (SEROQUEL) 25 mg tablet TAKE 1 TABLET BY MOUTH NIGHTLY gabapentin (NEURONTIN) 100 mg capsule gabapentin 100 mg capsule TAKE 2 CAPSULES BY MOUTH THREE TIMES DAILY ondansetron orally disintegrating (ZOFRAN ODT) 4 mg disintegrating tablet TAKE 1 TABLET BY MOUTH EVERY 6 (SIX) HOURS NEEDED busPIRone (BUSPAR) 7.5 mg tablet Take 7.5 mg by mouth twice daily. lisinopril (ZESTRIL, PRINIVIL) 5 mg tablet Take 5 mg by mouth once daily. tetracycline, nystatin, hydrocortisone, diphenhydrAMINE MAGIC MOUTHWASH SUSPENSION Swish and swallow 1 tsp 4 times daily as needed. Hydrocortisone 120mg, 30 ml Nystatin 100,000 Unit/ml Susp, 30 ml Lidocaine viscous 2%, QS 240ml of Diphenhydramine Elixir 12.5mg/5ml. Label bottle Shake Well meloxicam (MOBIC) 15 mg tablet Take 15 mg by mouth once daily. nystatin (NYSTOP) powder Apply 1 application to affected area four times daily. pantoprazole DR (PROTONIX) 40 mg tablet pantoprazole 40 mg tablet,delayed release Take 1 tablet every day by oral route. VENTOLIN HFA 90 mcg/actuation inhaler Inhale 2 Puffs as instructed every 4 hours as needed. atorvastatin (LIPITOR) 20 mg tablet Take 20 mg by mouth daily at bedtime. HYDROcodone-acetaminophen (NORCO) 5-325 mg per tablet Take 1 tablet by mouth every 6 hours as needed. metoprolol tartrate, short acting, (LOPRESSOR) 25 mg tablet Take 12.5 mg by mouth twice daily. Omeprazole 40 mg capsule Take 40 mg by mouth once daily. hydroxyurea (HYDREA) 500 mg capsule Take 500 mg by mouth once daily. Patient takes 500 mg daily except 1000 mg on Wednesday, Wednesday and Fridays as of 08/20/2021 PARoxetine (PAXIL) 40 mg tablet Take 40 mg by mouth once daily. isosorbide mononitrate ER (IMDUR) 60 mg 24 hr tablet Take 60 mg by mouth once daily. aspirin, enteric coated (ASPIRIN, ENTERIC COATED) 81 mg EC tablet Take 81 mg by mouth once daily. LABORATORY VALUES: WBC (k/uL) Date Value 07/29/2023 7.47 RBC (m/uL) Date Value 07/29/2023 3.57 (L) Hemoglobin (g/dL) Date Value 07/29/2023 13.6 Hematocrit (%) Date Value 07/29/2023 41.4 MCV (fL) Date Value 07/29/2023 116.0 (H) MCH (pg) Date Value 07/29/2023 38.1 (H) MCHC (g/dL) Date Value 07/29/2023 32.9 RDW-CV (%) Date Value 07/29/2023 14.0 Platelet Count (k/uL) Date Value 07/29/2023 591 (H) MPV (fL) Date Value 07/29/2023 9.8 Glucose (mg/dL) Date Value 07/29/2023 114 (H) BUN (mg/dL) Date Value 07/29/2023 18 Creatinine (mg/dL) Date Value 07/29/2023 1.24 (H) Sodium (mmol/L) Date Value 07/29/2023 140 Potassium (mmol/L) Date Value 07/29/2023 5.0 Chloride (mmol/L) Date Value 07/29/2023 104 CO2 (mmol/L) Date Value 07/29/2023 27 Protein, Total (g/dL) Date Value 07/29/2023 6.4 Albumin (g/dL) Date Value 07/29/2023 4.4 Calcium, Total (mg/dL) Date Value 07/29/2023 9.4 Alkaline Phosphatase (U/L) Date Value 07/29/2023 60 Bilirubin, Total (mg/dL) Date Value 07/29/2023 0.5 AST (U/L) Date Value 07/29/2023 16 ALT (U/L) Date Value 07/29/2023 11 DIAGNOSIS: (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 (primary encounter diagnosis) Plan: CBC + DIFF, COMP METABOLIC PANEL, IRON + TIBC, FERRITIN BLD, VITAMIN B12 BLOOD, FOLATE SERUM, CBC + DIFF, COMP METABOLIC PANEL, IRON + TIBC, FERRITIN BLD, VITAMIN B12 BLOOD, FOLATE SERUM (D47.3) Essential thrombocythemia (HCC) Plan: CBC + DIFF, COMP METABOLIC PANEL, IRON + TIBC, FERRITIN BLD, VITAMIN B12 BLOOD, FOLATE SERUM, CBC + DIFF, COMP METABOLIC PANEL, IRON + TIBC, FERRITIN BLD, VITAMIN B12 BLOOD, FOLATE SERUM PAST MEDICAL HISTORY Diagnosis Date CAD (coronary artery disease) CVA (cerebral vascular accident) (HCC) Depression GERD (gastroesophageal reflux disease) Hx of basal cell carcinoma Hypertension Osteoporosis Thrombocytopenia (HCC) PAST SURGICAL HISTORY Procedure Laterality Date ANKLE pins and plate CHOLECYSTECTOMY HX EYE SURGERY HX gas bubbles in right eye STENTS (SPECIFY) cardiac Social History Tobacco Use Smoking status: Former Packs/day: 1 Types: Cigarettes Start date: 12/30/2009 Quit date: 08/01/2020 Years since quittin.0 Smokeless tobacco: Never Vaping Use Vaping Use: Never used Substance Use Topics Alcohol use: Yes Drug use: No FAMILY HISTORY Problem Relation Age of Onset Cancer Mother Diabetes Mother Diabetes Father other (cirrhosis of liver [Other]) Father I spent a total of 20 minutes on the date of the service which included preparing to see the patient, [id number] patient care, completing clinical documentation, performing a medically appropriate examination, counseling and educating the patient/family/caregiver, ordering medications, tests, or procedures, and independently interpreting results (not separately reported). Rod Roman MD, [place], [place] CC: Tito Hillman MD [address] [place], [place] [id number] documented in this encounter [facility] 07-29-2023 Note HNO ID: [id number] Author: Rod Roman MD Service: ? Author Type: Physician Type: Progress Notes Filed: 08/01/2023 3:49 PM Note Text: NAME: Josefa Castillo CLINIC NO.: [id number] DATE OF SERVICE: July 29, 2023 (Carlos) Some elements in this clinic note that are critical to medical decision making have been carefully reviewed and included from a prior clinic note dated: April 08, 2023 (Carlos) Referring Provider: Tito Hillman MD Additional Clinicians involved in Josefa Castillo's care: CC: Follow up ASSESSMENT: 1. ET: 83 year old woman with essential thrombocythemia. She has been treated with Hydrea since 2001 when she suffered a mini-stroke and was found to have thrombocytosis while living in [place]. She has been on various dosing through the years, but as of the last 5 years, she had consistently been on 500 mg daily. 08/21/2021 she was increased for a brief period of time but then returned to her typical dose of 500 mg daily where she remains. Labs remain stable. Platelet Count (k/uL) Date Value 07/29/2023 591 12/11/2021 473 2. B12 deficiency Will continue with B12 every other month 3. Basal cell ca of right buddhist April 2023 PLAN: Labs to include B12 in 8 weeks. Labs every 8 weeks, CBC, CMP Continue current regimen of Hydrea 500 mg daily Wednesday - Wednesday but increase to 2 tablets (1000 mg) on Saturdays and Sundays) B12 Shot today and every 8 weeks. RTC in 16 weeks HPI: Updated Visit, July 29, 2023: Right buddhist was not a melanoma - basal cell. Labs reviewed and adjusted hydrea on weekends Otherwise is doing very well. Updated Visit, April 08, 2023: Says she's not doing well. 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 Continues B12 shots every 8 weeks Platelets 580 today - a little high but can adjust in future if needed. Updated Visit, December 17, 2022: Doing very well. Labs staying stable. Has skipped B12 because her daughter was very sick and she couldn't get in to the office. Will follow up with neurology for headaches that persist. Updated Visit, July 30, 2022: Josefa is 82 years old and returns today with several issues outside of what we typically see her for. She has been complaining of pain on the left side of head over the buddhist and into the jaw. No vision changes associated with pain. Intermittent and dull and pounding. Right buddhist at the corner of her eye lid is a small scab that may need further evaluation by derm. Would defer to Dr. Hillman. Review of laboratories Feels stable disease on current regimen of Hydrea. Updated Visit, March 05, 2022: Doing well on current regimen of care. No complaints. Continues to benefit from B12 shots. Updated Visit, December 11, 2021: Doing well aside from chronic arthralgias and associated back pain. Labs stable. B12 due today. Updated Visit, September 18, 2021: Josefa is doing very well today and platelets have stabilized on current regimen of hydrea. She has no complaints. Updated Visit, September 04, 2021: Mrs. Castillo returns today for a 2 week follow up. At her previous visit we increased her Hydrea to 500 mg daily except 1000 mg on days Wednesday, Wednesday and Wednesday due to an upward trend of her platelets and a bout of epistaxis. She has tolerated the change in dose and confirmed she is taking it appropriately. She has not had any additional bleeding episodes either. Updated Visit, August 21, 2021: Mrs. Castillo returns for follow up. She has been on Hydrea 500 mg daily for the last 5 years along with daily aspirin. Prior to that, she was on various dosing of hydrea. She has been feeling well. She did have a nose bleed 2 weeks ago that lasted about 10 minutes. No other bleeding. No evidence of clots. No new meds or other medical changes. 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 Counts remain stable and she states she feels a boost of energy whenever she gets her B12 shot. Will continue current plan. 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 She continues to do well but has been having some intermittent chest pain. Dr. Hillman ordered a stress test for the intermittent chest pain and felt that it could be cadiac vs. Reflux. Of note, she quit smoking 08/23/2020. She continues to require vitamin B12 injections and counts remain stable on current dosing of Hydrea. Updated Visit, November 11, 2020: 80 yo woman with ET controlled with hydrea 500 mg daily. Doing well with 2 new great granchildren born in and in the New year. Counts well controlled.Feels good when she gets her B12 and has a surge of energy. Updated Visit, August 19, 2020: Josefa Castillo returns for three-month follow-up. She remains on Hydrea 50 (more content not included)... [facility] 04-08-2023 Nurse Note Patient Identification confirmed: yes. Injection given and documented on DEC per provider order. Janeth Bright MA documented in this encounter [facility] 04-08-2023 Note HNO ID: [id number] Author: Rod Roman MD Service: ? Author Type: Physician Type: Progress Notes Filed: 04/11/2023 2:03 PM Note Text: NAME: Josefa Castillo [facility] NO.: [id number] DATE OF SERVICE: April 08, 2023 (Carlos) Some elements in this clinic note that are critical to medical decision making have been carefully reviewed and included from a prior clinic note dated: December 17, 2022 (Carlos) Referring Provider: Tito Hillman MD Additional Clinicians involved in Josefa Castillo's care: CC: Follow up ASSESSMENT: 1. 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 She has been treated with Hydrea since 2001 when she suffered a mini-stroke and was found to have thrombocytosis while living in [place]. She has been on various dosing through the years, but as of the last 5 years, she had consistently been on 500 mg daily. 08/21/2021 she was increased for a brief period of time but then returned to her typical dose of 500 mg daily where she remains. Labs remain stable. Platelet Count (k/uL) Date Value 04/08/2023 580 12/11/2021 473 2. 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 [facility] to include B12 in 8 weeks. Labs every 8 weeks, CBC, CMP Continue current regimen of Hydrea 500 mg daily B12 Shot today and every 8 weeks. RTC in 16 weeks HPI: Updated Visit, April 08, 2023: Says she's not doing well. 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 Continues B12 shots every 8 weeks Platelets 580 today - a little high but can adjust in future if needed. Updated Visit, December 17, 2022: Doing very well. Labs staying stable. Has skipped B12 because her daughter was very sick and she couldn't get in to the office. Will follow up with neurology for headaches that persist. Updated Visit, July 30, 2022: Josefa is 82 years old and returns today with several issues outside of what we typically see her for. She has been complaining of pain on the left side of head over the buddhist and into the jaw. No vision changes associated with pain. Intermittent and dull and pounding. Right buddhist at the corner of her eye lid is a small scab that may need further evaluation by derm. Would defer to Dr. Hillman. Review of laboratories Feels stable disease on current regimen of Hydrea. Updated Visit, March 05, 2022: Doing well on current regimen of care. No complaints. Continues to benefit from B12 shots. Updated Visit, December 11, 2021: Doing well aside from chronic arthralgias and associated back pain. Labs stable. B12 due today. Updated Visit, September 18, 2021: Josefa is doing very well today and platelets have stabilized on current regimen of hydrea. She has no complaints. Updated Visit, September 04, 2021: Mrs. Castillo returns today for a 2 week follow up. At her previous visit we increased her Hydrea to 500 mg daily except 1000 mg on days Wednesday, Wednesday and Wednesday due to an upward trend of her platelets and a bout of epistaxis. She has tolerated the change in dose and confirmed she is taking it appropriately. She has not had any additional bleeding episodes either. Updated Visit, August 21, 2021: Mrs. Castillo returns for follow up. She has been on Hydrea 500 mg daily for the last 5 years along with daily aspirin. Prior to that, she was on various dosing of hydrea. She has been feeling well. She did have a nose bleed 2 weeks ago that lasted about 10 minutes. No other bleeding. No evidence of clots. No new meds or other medical changes. 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 Counts remain stable and she states she feels a boost of energy whenever she gets her B12 shot. Will continue current plan. 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 She continues to do well but has been having some intermittent chest pain. Dr. Hillman ordered a stress test for the intermittent chest pain and felt that it could be cadiac vs. Reflux. Of note, she quit smoking 08/23/2020. She continues to require vitamin B12 injections and counts remain stable on current dosing of Hydrea. Updated Visit, November 11, 2020: 80 yo woman with ET controlled with hydrea 500 mg daily. Doing well with 2 new great granchildren born in [facility] and in the New year. Counts well controlled.Feels good when she gets her B12 and has a surge of energy. Updated Visit, August 19, 2020: Josefa Castillo returns for three-month follow-up. She remains on Hydrea 500 mg daily and is tolerating it well. She denies any bleeding or abnormal bruising. No signs of blood clots. She was recently treated for a urinary tract infection and finished an antibiotic last Mo (more content not included)... [facility] 04-08-2023 History of Presen t illness Narrative Images from the original note were not included. NAME: Josefa Castillo CLINIC NO.: [id number] DATE OF SERVICE: April 08, 2023 (Carlos) Some elements in this clinic note that are critical to medical decision making have been carefully reviewed and included from a prior clinic note dated: December 17, 2022 (Carlos) Referring Provider: Tito Hillman MD Additional Clinicians involved in Josefa Castillo's care: CC: Follow up ASSESSMENT: 1. 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 She has been treated with Hydrea since 2001 when she suffered a mini-stroke and was found to have thrombocytosis while living in [place]. She has been on various dosing through the years, but as of the last 5 years, she had consistently been on 500 mg daily. 08/21/2021 she was increased for a brief period of time but then returned to her typical dose of 500 mg daily where she remains. Labs remain stable. Platelet Count (k/uL) Date Value 04/08/2023 580 12/11/2021 473 2. 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 [facility] Labs to include B12 in 8 weeks. Labs every 8 weeks, CBC, CMP Continue current regimen of Hydrea 500 mg daily B12 Shot today and every 8 weeks. RTC in 16 weeks HPI: Updated Visit, April 08, 2023: Says she's not doing well. 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 Continues B12 shots every 8 weeks Platelets 580 today - a little high but can adjust in future if needed. Updated Visit, December 17, 2022: Doing very well. Labs staying stable. Has skipped B12 because her daughter was very sick and she couldn't get in to the office. Will follow up with neurology for headaches that persist. Updated Visit, July 30, 2022: Josefa is 82 years old and returns today with several issues outside of what we typically see her for. She has been complaining of pain on the left side of head over the buddhist and into the jaw. No vision changes associated with pain. Intermittent and dull and pounding. Right buddhist at the corner of her eye lid is a small scab that may need further evaluation by derm. Would defer to Dr. Hillman. Review of laboratories Feels stable disease on current regimen of Hydrea. Updated Visit, March 05, 2022: Doing well on current regimen of care. No complaints. Continues to benefit from B12 shots. Updated Visit, December 11, 2021: Doing well aside from chronic arthralgias and associated back pain. Labs stable. B12 due today. Updated Visit, September 18, 2021: Josefa is doing very well today and platelets have stabilized on current regimen of hydrea. She has no complaints. Updated Visit, September 04, 2021: Mrs. Castillo returns today for a 2 week follow up. At her previous visit we increased her Hydrea to 500 mg daily except 1000 mg on days Wednesday, Wednesday and Wednesday due to an upward trend of her platelets and a bout of epistaxis. She has tolerated the change in dose and confirmed she is taking it appropriately. She has not had any additional bleeding episodes either. Updated Visit, August 21, 2021: Mrs. Castillo returns for follow up. She has been on Hydrea 500 mg daily for the last 5 years along with daily aspirin. Prior to that, she was on various dosing of hydrea. She has been feeling well. She did have a nose bleed 2 weeks ago that lasted about 10 minutes. No other bleeding. No evidence of clots. No new meds or other medical changes. 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 Counts remain stable and she states she feels a boost of energy whenever she gets her B12 shot. Will continue current plan. 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 She continues to do well but has been having some intermittent chest pain. Dr. Hillman ordered a stress test for the intermittent chest pain and felt that it could be cadiac vs. Reflux. Of note, she quit smoking 08/23/2020. She continues to require vitamin B12 injections and counts remain stable on current dosing of Hydrea. Updated Visit, November 11, 2020: 80 yo woman with ET controlled with hydrea 500 mg daily. Doing well with 2 new great granchildren born in [facility] and in the New year. Counts well controlled.Feels good when she gets her B12 and has a surge of energy. Updated Visit, August 19, 2020: Josefa Castillo returns for three-month follow-up. She remains on Hydrea 500 mg daily and is tolerating it well. She denies any bleeding or abnormal bruising. No signs of blood clots. She was recently treated for a urinary tract infection and finished an antibiotic last Wednesday. She complains of problems with her tongue since last . She reports burning to the roof of her mouth. No obvious mouth sores. Otherwise, she has been doing well. Updated Visit, May 20, 2020: 79 yo woman seen for Essential Thrombocythemia and B12 deficiency hadn't gotten her monthly B12 due to COVID. Now feels tired. Labs were reviewed after patient left. plt = 464. Updated Visit, February 07, 2020: Conducted by telephone This is a 79-year-old woman who was initially diagnosed with essential thrombocythemia 2001. She has been on hydrea. She was following with Dr. Bower in [facility]. Initially on 6 pills of hydrea. 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 She has not required other treatments. Also a history of iron deficiency and required iron infusions occasionally. 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 She moved here to live with her daughter and son in law and has been followed in this office since then. In May 2018 she underwent a Irasema fundoplication for paraesophageal hernia and has had chronic bowel problems since then. She has lost almost 117 pounds in relation to this. She is otherwise doing well but has chronic pain which is managed by her primary care physician and is unchanged. She would like to get her laboratories done at her PCPs office and once I have those results we can discuss any changes to her current regimen of therapy. REVIEW OF SYSTEMS Per HPI and otherwise negative by full review of organ systems. ECOG PERFORMANCE STATUS: 1 PHYSICAL EXAMINATION: Vitals: BP 161/74 Pulse 77 Temp (Src) 97.8 (Temporal) Resp 16 Ht 5' 2.008 (1.58m) Wt 125 lb (56.7kg) SpO2 99% BMI 22.86 kg/(m^2). Body surface area is 1.58 meters squared. Exam limited to gross visualization where appropriate. Gen.: This is an age-appropriate patient in no acute distress. Head: Appears atraumatic with no visible lesions. Eyes: Pupils equally round and reactive to light, extraocular muscles are intact. Neck: Supple. Respiratory: Appears to be respiring comfortably. Neurologic: Nonfocal to gross visualization. Alert and oriented 3. Psychiatric: No evidence of inappropriate anxiety or depression. Skin: Visible areas of skin without rash, lesions, wounds or petechiae. ALLERGIES: ALLERGIES Allergen Reactions Morphine Unknown ? Per patient vomiting with pills but able to tolerate IV Upset stomach Sulfa (Sulfonamide * Unknown Stomach didn't tolerate it Upset stomach Sulfasalazine Unknown Sulfur Unknown MEDICATIONS: QUEtiapine (SEROQUEL) 25 mg tablet TAKE 1 TABLET BY MOUTH NIGHTLY gabapentin (NEURONTIN) 100 mg capsule gabapentin 100 mg capsule TAKE 2 CAPSULES BY MOUTH THREE TIMES DAILY ondansetron orally disintegrating (ZOFRAN ODT) 4 mg disintegrating tablet TAKE 1 TABLET BY MOUTH EVERY 6 (SIX) HOURS NEEDED busPIRone (BUSPAR) 7.5 mg tablet Take 7.5 mg by mouth twice daily. lisinopril (ZESTRIL, PRINIVIL) 5 mg tablet Take 5 mg by mouth once daily. tetracycline, nystatin, hydrocortisone, diphenhydrAMINE MAGIC MOUTHWASH SUSPENSION Swish and swallow 1 tsp 4 times daily as needed. Hydrocortisone 120mg, 30 ml Nystatin 100,000 Unit/ml Susp, 30 ml Lidocaine viscous 2%, QS 240ml of Diphenhydramine Elixir 12.5mg/5ml. Label bottle Shake Well meloxicam (MOBIC) 15 mg tablet Take 15 mg by mouth once daily. nystatin (NYSTOP) powder Apply 1 application to affected area four times daily. pantoprazole DR (PROTONIX) 40 mg tablet pantoprazole 40 mg tablet,delayed release Take 1 tablet every day by oral route. VENTOLIN HFA 90 mcg/actuation inhaler Inhale 2 Puffs as instructed every 4 hours as needed. atorvastatin (LIPITOR) 20 mg tablet Take 20 mg by mouth daily at bedtime. HYDROcodone-acetaminophen (NORCO) 5-325 mg per tablet Take 1 tablet by mouth every 6 hours as needed. metoprolol tartrate, short acting, (LOPRESSOR) 25 mg tablet Take 12.5 mg by mouth twice daily. Omeprazole 40 mg capsule Take 40 mg by mouth once daily. hydroxyurea (HYDREA) 500 mg capsule Take 500 mg by mouth once daily. Patient takes 500 mg daily except 1000 mg on Wednesday, Wednesday and Fridays as of 08/20/2021 PARoxetine (PAXIL) 40 mg tablet Take 40 mg by mouth once daily. isosorbide mononitrate ER (IMDUR) 60 mg 24 hr tablet Take 60 mg by mouth once daily. aspirin, enteric coated (ASPIRIN, ENTERIC COATED) 81 mg EC tablet Take 81 mg by mouth once daily. LABORATORY VALUES: WBC (k/uL) Date Value 04/08/2023 6.82 RBC (m/uL) Date Value 04/08/2023 3.34 (L) Hemoglobin (g/dL) Date Value 04/08/2023 13.4 Hematocrit (%) Date Value 04/08/2023 40.3 MCV (fL) Date Value 04/08/2023 120.7 (H) MCH (pg) Date Value 04/08/2023 40.1 (H) MCHC (g/dL) Date Value 04/08/2023 33.3 RDW-CV (%) Date Value 04/08/2023 13.5 Platelet Count (k/uL) Date Value 04/08/2023 580 (H) MPV (fL) Date Value 04/08/2023 9.9 Glucose (mg/dL) Date Value 04/08/2023 106 (H) BUN (mg/dL) Date Value 04/08/2023 10 Creatinine (mg/dL) Date Value 04/08/2023 0.88 Sodium (mmol/L) Date Value 04/08/2023 138 Potassium (mmol/L) Date Value 04/08/2023 4.3 Chloride (mmol/L) Date Value 04/08/2023 102 CO2 (mmol/L) Date Value 04/08/2023 27 Protein, Total (g/dL) Date Value 04/08/2023 6.7 Albumin (g/dL) Date Value 04/08/2023 4.4 Calcium, Total (mg/dL) Date Value 04/08/2023 9.5 Alkaline Phosphatase (U/L) Date Value 04/08/2023 60 Bilirubin, Total (mg/dL) Date Value 04/08/2023 0.5 AST (U/L) Date Value 04/08/2023 21 ALT (U/L) Date Value 04/08/2023 14 DIAGNOSIS: (D47.3) Essential thrombocythemia (HCC) (primary encounter diagnosis) (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 PAST MEDICAL HISTORY Diagnosis Date CAD (coronary artery disease) CVA (cerebral vascular accident) (HCC) Depression GERD (gastroesophageal reflux disease) Hx of basal cell carcinoma Hypertension Osteoporosis Thrombocytopenia (HCC) PAST SURGICAL HISTORY Procedure Laterality Date ANKLE pins and plate CHOLECYSTECTOMY HX EYE SURGERY HX gas bubbles in right eye STENTS (SPECIFY) cardiac Social History Tobacco Use Smoking status: Former Packs/day: 1.00 Types: Cigarettes Start date: 12/30/2009 Quit date: 08/01/2020 Years since quittin.6 Smokeless tobacco: Never Vaping Use Vaping Use: Never used Substance Use Topics Alcohol use: Yes Drug use: No FAMILY HISTORY Problem Relation Age of Onset Cancer Mother Diabetes Mother Diabetes Father other (cirrhosis of liver [Other]) Father I spent a total of 20 minutes on the date of the service which included preparing to see the patient, [id number] patient care, completing clinical documentation, performing a medically appropriate examination, counseling and educating the patient/family/caregiver, ordering medications, tests, or procedures, and independently interpreting results (not separately reported). Rod Roman MD, CPE [facility] [place], [place] CC: Tito Hillman MD [address] [place] [id number] documented in this encounter [facility] 02-19-2023 Note Cardiovascular Medic [facility] SUBJECTIVE Chief Complaint Patient presents with Coronary Artery Disease Hypertension Telehealth Phone Visit Josefa Castillo is a 82 y.o. female being evaluated for routine follow-up. HPI PMHx of HTN, CAD s/p stents x3 to LAD and RCA done in [place]. She has a hx of a loop recorder being placed in [place] d/t complaint of syncope. Loop recorder battery , never removed. Dr. Smart gave her the option to go to [place] to have it removed but she refused. Since last seen she underwent a stress test ordered by her PCP d/t complaints of chest pain. She states chest pain came on during rest, midsternal, sometimes brought on after she eats or after she drinks water. Feels like a pressure type of pain. Occurs on random occasions. She has some weakened vertebra in her neck that are pinching her nerves. She will be seeing specialist tomorrow. She does have headaches with this. BP at home running 120-140s/60-80 She has her typical palpitations - occasional chest fluttering - had loop recorder in the past, no arrhythmias noted She notes some MCGHEE that is brought on first by her back pain C/o LE swelling - R>L - chronic issue 02/19/2023 She has been doing well. Has had a few dizzy spells but she attributes this to issues with her eye and vision. She will sometimes see things that aren't there. She will be having basal cell carcinoma removed from her eye sometime next week. Today, BP at home 150/81, HR 60 Recent oncologist visit vitals: 159/81, HR 66 She denies c/o CP, dyspnea at rest or exertion, orthopnea, PND, leg swelling, syncope. 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) Osteopenia Pain Gastroesophageal reflux disease Hiatal hernia Paraesophageal hernia Personal history of diseases of blood and blood-forming organs S/P repair of paraesophageal hernia Shoulder impingement syndrome, right Smoking Solitary pulmonary nodule Syncope Trigeminal neuralgia Trimalleolar fracture Wide-complex tachycardia Past Medical History: Diagnosis Date Cancer (CMS/HCC) Coronary artery disease Depression GERD (gastroesophageal reflux disease) Hypertension Family History Problem Relation Name Age of Onset Breast cancer Mother Diabetes Mother Diabetes Father Social History Tobacco Use Smoking status: Former Types: Cigarettes Quit date: 2019 Years since quittin.3 Smokeless tobacco: Never Substance Use Topics Alcohol use: Yes Comment: occasional Allergies Allergen Reactions Sulfa (Sulfonamide Antibiotics) Unknown Other reaction(s): vomiting, felt like was going to pass out Stomach didn't tolerate it Upset stomach Morphine Rash and Unknown Other reaction(s): Per patient vomiting with pills but able to tolerate IV Upset stomach ? ? Per patient vomiting with pills but able to tolerate IV Upset stomach ROS Musculoskeletal: Positive for arthritis, back pain, joint pain and myalgias. Neurological: Positive for dizziness, headaches and light-headedness. All other systems reviewed and are negative. OBJECTIVE Visit Vitals BP 150/81 Pulse 60 Ht 1.575 m (5' 2 ) BMI 23.78 kg/m??? Smoking Status Former BSA 1.61 m??? Medications: Current Outpatient Medications: aspirin 81 mg EC tablet, Take 81 mg by mouth., Disp: , Rfl: atorvastatin (Lipitor) 20 mg tablet, Take 1 tablet by mouth at bedtime., Disp: , Rfl: cetirizine (ZyrTEC) 10 mg tablet, Take 10 mg by mouth in the morning., Disp: , Rfl: hydroxyurea (Hydrea) 500 mg capsule, Take by mouth in the morning, Disp: , Rfl: isosorbide mononitrate ER (Imdur) 60 mg 24 hr tablet, Take 60 mg by mouth in the morning., Disp: , Rfl: metoprolol tartrate (Lopressor) 25 mg tablet, Take 1 tablet by mouth in the morning and at bedtime., Disp: , Rfl: oxyCODONE-acetaminophen (Percocet) 5-325 mg tablet, Take 1-2 tablets by mouth every 6 (six) hours if needed., Disp: , Rfl: PARoxetine (Paxil) 40 mg tablet, Take 1 tablet by mouth in the morning., Disp: , Rfl: QUEtiapine (SEROquel) 25 mg tablet, Take 25 mg by mouth in the evening., Disp: , Rfl: lisinopril 10 mg tablet, Take 1 tablet (10 mg) by mouth in the morning., Disp: 90 tablet, Rfl: 3 Physical Exam Neurological: Mental Status: She is alert and oriented to person, place, and time. Psychiatric: Mood and Affect: Mood normal (more content not included)... [facility] 02-19-2023 Note Telephone apt for 2 year follow up CAD and hypertension. Had routine labs last month. She will be having melanoma by her eye removed next week. Denies chest pain and SOB. Says she feels good. Review of Systems Musculoskeletal: Positive for arthritis, back pain, joint pain and myalgias. Neurological: Positive for dizziness, headaches and light-headedness. Psychiatric/Behavioral: Positive for hallucinations. All other systems reviewed and are negative. [facility] 12-17-2022 History of Presen t illness Narrative Patient Identification confirmed: yes. Injection given and documented on DEC per provider order. Katya Craig documented in this encounter [facility] 12-17-2022 Instructions Rod Roman MD - 12/17/2022 10:48 AM EST Labs every 8 weeks, CBC, CMP Labs to include B12 in 8 weeks. Continue current regimen of Hydrea 500 mg daily B12 Shot today and every 8 weeks. RTC in 16 weeks Defer left sided headache and right buddhist lesion to Dr. Hillman. documented in this encounter [facility] 12-17-2022 History of Presen t illness Narrative Images from the original note were not included. NAME: Josefa Castillo CLINIC NO.: [id number] DATE OF SERVICE: December 17, 2022 (Carlos) Some elements in this clinic note that are critical to medical decision making have been carefully reviewed and included from a prior clinic note dated: July 30, 2022 (Carlos) Referring Provider: Tito Hillman MD Additional Clinicians involved in Josefa Castillo's care: CC: Follow up ASSESSMENT: 1. 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 She has been treated with Hydrea since 2001 when she suffered a mini-stroke and was found to have thrombocytosis while living in [place]. She has been on various dosing through the years, but as of the last 5 years, she had consistently been on 500 mg daily. 08/21/2021 she was increased for a brief period of time but then returned to her typical dose of 500 mg daily where she remains. Labs remain stable. Platelet Count (k/uL) Date Value 12/17/2022 335 12/11/2021 473 2. B12 deficiency Will continue with B12 every other month PLAN: Labs every 8 weeks, CBC, CMP Labs to include B12 in 8 weeks. Continue current regimen of Hydrea 500 mg daily B12 Shot today and every 8 weeks. RTC in 16 weeks Defer left sided headache and right buddhist lesion to Dr. Hillman. HPI: Updated Visit, December 17, 2022: Doing very well. Labs staying stable. Has skipped B12 because her daughter was very sick and she couldn't get in to the office. Will follow up with neurology for headaches that persist. Updated Visit, July 30, 2022: Josefa is 82 years old and returns today with several issues outside of what we typically see her for. She has been complaining of pain on the left side of head over the buddhist and into the jaw. No vision changes associated with pain. Intermittent and dull and pounding. Right buddhist at the corner of her eye lid is a small scab that may need further evaluation by derm. Would defer to Dr. Hillman. Review of laboratories Feels stable disease on current regimen of Hydrea. Updated Visit, March 05, 2022: Doing well on current regimen of care. No complaints. Continues to benefit from B12 shots. Updated Visit, December 11, 2021: Doing well aside from chronic arthralgias and associated back pain. Labs stable. B12 due today. Updated Visit, September 18, 2021: Josefa is doing very well today and platelets have stabilized on current regimen of hydrea. She has no complaints. Updated Visit, September 04, 2021: Mrs. Castillo returns today for a 2 week follow up. At her previous visit we increased her Hydrea to 500 mg daily except 1000 mg on days Wednesday, Wednesday and Wednesday due to an upward trend of her platelets and a bout of epistaxis. She has tolerated the change in dose and confirmed she is taking it appropriately. She has not had any additional bleeding episodes either. Updated Visit, August 21, 2021: Mrs. Castillo returns for follow up. She has been on Hydrea 500 mg daily for the last 5 years along with daily aspirin. Prior to that, she was on various dosing of hydrea. She has been feeling well. She did have a nose bleed 2 weeks ago that lasted about 10 minutes. No other bleeding. No evidence of clots. No new meds or other medical changes. 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 Counts remain stable and she states she feels a boost of energy whenever she gets her B12 shot. Will continue current plan. 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 She continues to do well but has been having some intermittent chest pain. Dr. Hillman ordered a stress test for the intermittent chest pain and felt that it could be cadiac vs. Reflux. Of note, she quit smoking 08/23/2020. She continues to require vitamin B12 injections and counts remain stable on current dosing of Hydrea. Updated Visit, November 11, 2020: 80 yo woman with ET controlled with hydrea 500 mg daily. Doing well with 2 new great granchildren born in and in the [place] year. Counts well controlled.Feels good when she gets her B12 and has a surge of energy. Updated Visit, August 19, 2020: Josefa Castillo returns for three-month follow-up. She remains on Hydrea 500 mg daily and is tolerating it well. She denies any bleeding or abnormal bruising. No signs of blood clots. She was recently treated for a urinary tract infection and finished an antibiotic last Wednesday. She complains of problems with her tongue since last . She reports burning to the roof of her mouth. No obvious mouth sores. Otherwise, she has been doing well. Updated Visit, May 20, 2020: 79 yo woman seen for Essential Thrombocythemia and B12 deficiency hadn't gotten her monthly B12 due to COVID. Now feels tired. Labs were reviewed after patient left. plt = 464. Updated Visit, February 07, 2020: Conducted by telephone This is a 79-year-old woman who was initially diagnosed with essential thrombocythemia 2001. She has been on hydrea. She was following with Dr. Bower in [facility]. Initially on 6 pills of hydrea. 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 She has not required other treatments. Also a history of iron deficiency and required iron infusions occasionally. 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 She moved here to live with her daughter and son in law and has been followed in this office since then. In May 2018 she underwent a Irasema fundoplication for paraesophageal hernia and has had chronic bowel problems since then. She has lost almost 117 pounds in relation to this. She is otherwise doing well but has chronic pain which is managed by her primary care physician and is unchanged. She would like to get her laboratories done at her PCPs office and once I have those results we can discuss any changes to her current regimen of therapy. REVIEW OF SYSTEMS Per HPI and otherwise negative by full review of organ systems. ECOG PERFORMANCE STATUS: 1 PHYSICAL EXAMINATION: Vitals: BP 159/81 Pulse 66 Temp (Src) 97.5 (Temporal) Resp 16 Ht 5' 2.008 (1.58m) Wt 123 lb 6.4 oz (56.0kg) SpO2 97% BMI 22.56 kg/(m^2). Body surface area is 1.57 meters squared. Exam limited to gross visualization where appropriate due to COVID-19. Gen.: This is an age-appropriate patient in no acute distress. Head: Appears atraumatic with no visible lesions. Eyes: Pupils equally round and reactive to light, extraocular muscles are intact. Neck: Supple. Mouth: Mucous membranes appeared to be moist. Respiratory: Appears to be respiring comfortably. Neurologic: Nonfocal to gross visualization. Alert and oriented 3. Psychiatric: No evidence of inappropriate anxiety or depression. Skin: Visible areas of skin without rash, lesions, wounds or petechiae. ALLERGIES: ALLERGIES Allergen Reactions Morphine Unknown ? Per patient vomiting with pills but able to tolerate IV Upset stomach Sulfa (Sulfonamide * Unknown Stomach didn't tolerate it Upset stomach Sulfasalazine Unknown Sulfur Unknown MEDICATIONS: QUEtiapine (SEROQUEL) 25 mg tablet^TAKE 1 TABLET BY MOUTH NIGHTLY^Disp: ^Rfl: gabapentin (NEURONTIN) 100 mg capsule^gabapentin 100 mg capsule TAKE 2 CAPSULES BY MOUTH THREE TIMES DAILY^Disp: ^Rfl: ondansetron orally disintegrating (ZOFRAN ODT) 4 mg disintegrating tablet^TAKE 1 TABLET BY MOUTH EVERY 6 (SIX) HOURS NEEDED^Disp: ^Rfl: lisinopril (ZESTRIL, PRINIVIL) 5 mg tablet^Take 5 mg by mouth once daily. ^Disp: ^Rfl: atorvastatin (LIPITOR) 20 mg tablet^Take 20 mg by mouth daily at bedtime.^Disp: ^Rfl: 3 HYDROcodone-acetaminophen (NORCO) 5-325 mg per tablet^Take 1 tablet by mouth every 6 hours as needed.^Disp: ^Rfl: 0 metoprolol tartrate, short acting, (LOPRESSOR) 25 mg tablet^Take 12.5 mg by mouth twice daily. ^Disp: ^Rfl: 3 hydroxyurea (HYDREA) 500 mg capsule^Take 500 mg by mouth once daily. Patient takes 500 mg daily except 1000 mg on Wednesday, Wednesday and Fridays as of 08/20/2021 ^Disp: ^Rfl: PARoxetine (PAXIL) 40 mg tablet^Take 40 mg by mouth once daily.^Disp: ^Rfl: isosorbide mononitrate ER (IMDUR) 60 mg 24 hr tablet^Take 60 mg by mouth once daily.^Disp: ^Rfl: aspirin, enteric coated (ASPIRIN, ENTERIC COATED) 81 mg EC tablet^Take 81 mg by mouth once daily.^Disp: ^Rfl: busPIRone (BUSPAR) 7.5 mg tablet^Take 7.5 mg by mouth twice daily.^Disp: ^Rfl: tetracycline, nystatin, hydrocortisone, diphenhydrAMINE MAGIC MOUTHWASH SUSPENSION^Swish and swallow 1 tsp 4 times daily as needed. Hydrocortisone 120mg, 30 ml Nystatin 100,000 Unit/ml Susp, 30 ml Lidocaine viscous 2%, QS 240ml of Diphenhydramine Elixir 12.5mg/5ml. Label bottle Shake Well ^Disp: 240 mL^Rfl: 0 meloxicam (MOBIC) 15 mg tablet^Take 15 mg by mouth once daily. ^Disp: ^Rfl: nystatin (NYSTOP) powder^Apply 1 application to affected area four times daily.^Disp: 60 g^Rfl: [address] (PROTONIX) 40 mg tablet^pantoprazole 40 mg tablet,delayed release Take 1 tablet every day by oral route.^Disp: ^Rfl: VENTOLIN HFA 90 mcg/actuation inhaler^Inhale 2 Puffs as instructed every 4 hours as needed. ^Disp: ^Rfl: 0 Omeprazole 40 mg capsule^Take 40 mg by mouth once daily. ^Disp: ^Rfl: 5 LABORATORY VALUES: WBC (k/uL) Date Value 12/17/2022 6.69 RBC (m/uL) Date Value 12/17/2022 3.39 (L) Hemoglobin (g/dL) Date Value 12/17/2022 13.5 Hematocrit (%) Date Value 12/17/2022 40.5 MCV (fL) Date Value 12/17/2022 119.5 (H) MCH (pg) Date Value 12/17/2022 39.8 (H) MCHC (g/dL) Date Value 12/17/2022 33.3 RDW-CV (%) Date Value 12/17/2022 13.7 Platelet Count (k/uL) Date Value 12/17/2022 335 MPV (fL) Date Value 12/17/2022 10.0 Glucose (mg/dL) Date Value 12/17/2022 112 (H) BUN (mg/dL) Date Value 12/17/2022 12 Creatinine (mg/dL) Date Value 12/17/2022 0.86 Sodium (mmol/L) Date Value 12/17/2022 139 Potassium (mmol/L) Date Value 12/17/2022 4.6 Chloride (mmol/L) Date Value 12/17/2022 102 CO2 (mmol/L) Date Value 12/17/2022 28 Protein, Total (g/dL) Date Value 12/17/2022 6.9 Albumin (g/dL) Date Value 12/17/2022 4.6 Calcium, Total (mg/dL) Date Value 12/17/2022 9.4 Alkaline Phosphatase (U/L) Date Value 12/17/2022 65 Bilirubin, Total (mg/dL) Date Value 12/17/2022 0.6 AST (U/L) Date Value 12/17/2022 22 ALT (U/L) Date Value 12/17/2022 11 DIAGNOSIS: (D47.3) Essential thrombocythemia (HCC) (primary encounter diagnosis) (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 (D50.9) Iron deficiency anemia, unspecified iron deficiency anemia type PAST MEDICAL HISTORY Diagnosis Date CAD (coronary artery disease) CVA (cerebral vascular accident) (HCC) Depression GERD (gastroesophageal reflux disease) Hx of basal cell carcinoma Hypertension Osteoporosis Thrombocytopenia (HCC) PAST SURGICAL HISTORY Procedure Laterality Date ANKLE pins and plate CHOLECYSTECTOMY HX EYE SURGERY HX gas bubbles in right eye STENTS (SPECIFY) cardiac Social History Tobacco Use Smoking status: Former Packs/day: 1.00 Types: Cigarettes Start date: 12/30/2009 Quit date: 08/01/2020 Years since quittin.3 Smokeless tobacco: Never Vaping Use Vaping Use: Never used Substance Use Topics Alcohol use: Yes Drug use: No FAMILY HISTORY Problem Relation Age of Onset Cancer Mother Diabetes Mother Diabetes Father other (cirrhosis of liver [Other]) Father I spent a total of 20 minutes on the date of the service which included preparing to see the patient, [id number] patient care, completing clinical documentation, performing a medically appropriate examination, counseling and educating the patient/family/caregiver, ordering medications, tests, or procedures, and independently interpreting results (not separately reported). Rod Roman MD, [place], [place] CC: Tito Hillman MD [address] [facility] [id number] documented in this encounter [facility] 11-12-2022 Miscellaneous Notes Please change b-12 date to 11/13/21. Kiera Rey Ma documented in this encounter [facility] 07-30-2022 Nurse Note Patient Identification confirmed: yes. Injection given and documented on DEC per provider order. Lory Avitia documented in this encounter [facility] 07-30-2022 Instructions Rod Roman MD - 07/30/2022 10:30 AM EDT Labs every 4 weeks, CBC, CMP Labs to include B12 in 8 weeks. Continue current regimen of Hydrea 500 mg daily B12 Shot today and every 4 weeks. Defer left sided headache and right buddhist lesion to Dr. Hillman. documented in this encounter [facility] 07-30-2022 History of Presen t illness Narrative Images from the original note were not included. NAME: Josefa Castillo CLINIC NO.: [id number] DATE OF SERVICE: July 30, 2022 Some elements in this clinic note that are critical to medical decision making have been carefully reviewed and included from a prior clinic note dated: March 05, 2022 Referring Provider: Tito Hillman MD Additional Clinicians involved in Josefa Castillo's care: CC: Follow up ASSESSMENT: 1. 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 She has been treated with Hydrea since 2001 when she suffered a mini-stroke and was found to have thrombocytosis while living in [place]. She has been on various dosing through the years, but as of the last 5 years, she had consistently been on 500 mg daily. 08/21/2021 she was increased for a brief period of time but then returned to her typical dose of 500 mg daily where she remains. Labs remain stable. Platelet Count (k/uL) Date Value 04/30/2022 350 12/11/2021 473 2. B12 deficiency Will continue with B12 monthly PLAN: Labs every 4 weeks, CBC, CMP Labs to include B12 in 8 weeks. Continue current regimen of Hydrea 500 mg daily B12 Shot today and every 4 weeks. Defer left sided headache and right buddhist lesion to Dr. Hillman. HPI: Updated Visit, July 30, 2022: Josefa is 82 years old and returns today with several issues outside of what we typically see her for. She has been complaining of pain on the left side of head over the buddhist and into the jaw. No vision changes associated with pain. Intermittent and dull and pounding. Right buddhist at the corner of her eye lid is a small scab that may need further evaluation by derm. Would defer to Dr. Hillman. Review of laboratories Feels stable disease on current regimen of Hydrea. Updated Visit, March 05, 2022: Doing well on current regimen of care. No complaints. Continues to benefit from B12 shots. Updated Visit, December 11, 2021: Doing well aside from chronic arthralgias and associated back pain. Labs stable. B12 due today. Updated Visit, September 18, 2021: Josefa is doing very well today and platelets have stabilized on current regimen of hydrea. She has no complaints. Updated Visit, September 04, 2021: Mrs. Castillo returns today for a 2 week follow up. At her previous visit we increased her Hydrea to 500 mg daily except 1000 mg on days Wednesday, Wednesday and Wednesday due to an upward trend of her platelets and a bout of epistaxis. She has tolerated the change in dose and confirmed she is taking it appropriately. She has not had any additional bleeding episodes either. Updated Visit, August 21, 2021: Mrs. Castillo returns for follow up. She has been on Hydrea 500 mg daily for the last 5 years along with daily aspirin. Prior to that, she was on various dosing of hydrea. She has been feeling well. She did have a nose bleed 2 weeks ago that lasted about 10 minutes. No other bleeding. No evidence of clots. No new meds or other medical changes. 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 Counts remain stable and she states she feels a boost of energy whenever she gets her B12 shot. Will continue current plan. 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 She continues to do well but has been having some intermittent chest pain. Dr. Hillman ordered a stress test for the intermittent chest pain and felt that it could be cadiac vs. Reflux. Of note, she quit smoking 08/23/2020. She continues to require vitamin B12 injections and counts remain stable on current dosing of Hydrea. Updated Visit, November 11, 2020: 80 yo woman with ET controlled with hydrea 500 mg daily. Doing well with 2 new great granchildren born in [facility] and in the New year. Counts well controlled.Feels good when she gets her B12 and has a surge of energy. Updated Visit, August 19, 2020: Josefa Castillo returns for three-month follow-up. She remains on Hydrea 500 mg daily and is tolerating it well. She denies any bleeding or abnormal bruising. No signs of blood clots. She was recently treated for a urinary tract infection and finished an antibiotic last Wednesday. She complains of problems with her tongue since last . She reports burning to the roof of her mouth. No obvious mouth sores. Otherwise, she has been doing well. Updated Visit, May 20, 2020: 79 yo woman seen for Essential Thrombocythemia and B12 deficiency hadn't gotten her monthly B12 due to COVID. Now feels tired. Labs were reviewed after patient left. plt = 464. Updated Visit, February 07, 2020: Conducted by telephone This is a 79-year-old woman who was initially diagnosed with essential thrombocythemia 2001. She has been on hydrea. She was following with Dr. Bower in [facility]. Initially on 6 pills of hydrea. 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 She has not required other treatments. Also a history of iron deficiency and required iron infusions occasionally. 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 She moved here to live with her daughter and son in law and has been followed in this office since then. In May 2018 she underwent a Irasema fundoplication for paraesophageal hernia and has had chronic bowel problems since then. She has lost almost 117 pounds in relation to this. She is otherwise doing well but has chronic pain which is managed by her primary care physician and is unchanged. She would like to get her laboratories done at her PCPs office and once I have those results we can discuss any changes to her current regimen of therapy. REVIEW OF SYSTEMS Per HPI and otherwise negative by full review of organ systems. ECOG PERFORMANCE STATUS: 1 PHYSICAL EXAMINATION: Vitals: BP 153/71 Pulse 70 Temp (Src) 97.6 (Temporal) Resp 16 Ht 5' 2 (1.58m) Wt 128 lb (58.1kg) SpO2 98% BMI 23.41 kg/(m^2). Body surface area is 1.59 meters squared. Exam limited to gross visualization where appropriate due to COVID-19. Gen.: This is an age-appropriate patient in no acute distress. Head: Appears atraumatic with no visible lesions. Eyes: Pupils equally round and reactive to light, extraocular muscles are intact. Neck: Supple. Mouth: Mucous membranes appeared to be moist. Respiratory: Appears to be respiring comfortably. Neurologic: Nonfocal to gross visualization. Alert and oriented 3. Psychiatric: No evidence of inappropriate anxiety or depression. Skin: Visible areas of skin without rash, lesions, wounds or petechiae. ALLERGIES: ALLERGIES Allergen Reactions Morphine Unknown ? Per patient vomiting with pills but able to tolerate IV Upset stomach Sulfa (Sulfonamide * Unknown Stomach didn't tolerate it Upset stomach Sulfasalazine Unknown Sulfur Unknown MEDICATIONS: busPIRone (BUSPAR) 7.5 mg tablet Take 7.5 mg by mouth twice daily. lisinopril (ZESTRIL, PRINIVIL) 5 mg tablet Take 5 mg by mouth once daily. tetracycline, nystatin, hydrocortisone, diphenhydrAMINE MAGIC MOUTHWASH SUSPENSION Swish and swallow 1 tsp 4 times daily as needed. Hydrocortisone 120mg, 30 ml Nystatin 100,000 Unit/ml Susp, 30 ml Lidocaine viscous 2%, QS 240ml of Diphenhydramine Elixir 12.5mg/5ml. Label bottle Shake Well meloxicam (MOBIC) 15 mg tablet Take 15 mg by mouth once daily. nystatin (NYSTOP) powder Apply 1 application to affected area four times daily. pantoprazole DR (PROTONIX) 40 mg tablet pantoprazole 40 mg tablet,delayed release Take 1 tablet every day by oral route. ondansetron (ZOFRAN) 8 mg tablet Take 1 tablet by mouth once daily as needed for Nausea/Vomiting. VENTOLIN HFA 90 mcg/actuation inhaler Inhale 2 Puffs as instructed every 4 hours as needed. atorvastatin (LIPITOR) 20 mg tablet Take 20 mg by mouth daily at bedtime. HYDROcodone-acetaminophen (NORCO) 5-325 mg per tablet Take 1 tablet by mouth every 6 hours as needed. metoprolol tartrate, short acting, (LOPRESSOR) 25 mg tablet Take 12.5 mg by mouth twice daily. Omeprazole 40 mg capsule Take 40 mg by mouth once daily. hydroxyurea (HYDREA) 500 mg capsule Take 500 mg by mouth once daily. Patient takes 500 mg daily except 1000 mg on Wednesday, Wednesday and Fridays as of 08/20/2021 PARoxetine (PAXIL) 40 mg tablet Take 40 mg by mouth once daily. isosorbide mononitrate ER (IMDUR) 60 mg 24 hr tablet Take 60 mg by mouth once daily. aspirin, enteric coated (ASPIRIN, ENTERIC COATED) 81 mg EC tablet Take 81 mg by mouth once daily. LABORATORY VALUES: WBC (k/uL) Date Value 07/30/2022 6.60 RBC (m/uL) Date Value 07/30/2022 3.15 (L) Hemoglobin (g/dL) Date Value 07/30/2022 12.8 Hematocrit (%) Date Value 07/30/2022 38.3 MCV (fL) Date Value 07/30/2022 121.6 (H) MCH (pg) Date Value 07/30/2022 40.6 (H) MCHC (g/dL) Date Value 07/30/2022 33.4 RDW-CV (%) Date Value 07/30/2022 13.7 Platelet Count (k/uL) Date Value 07/30/2022 332 MPV (fL) Date Value 07/30/2022 9.9 Glucose (mg/dL) Date Value 07/30/2022 113 (H) BUN (mg/dL) Date Value 07/30/2022 8 Creatinine (mg/dL) Date Value 07/30/2022 0.85 Sodium (mmol/L) Date Value 07/30/2022 138 Potassium (mmol/L) Date Value 07/30/2022 4.2 Chloride (mmol/L) Date Value 07/30/2022 103 CO2 (mmol/L) Date Value 07/30/2022 25 Protein, Total (g/dL) Date Value 07/30/2022 6.3 Albumin (g/dL) Date Value 07/30/2022 4.1 Calcium, Total (mg/dL) Date Value 07/30/2022 8.9 Alkaline Phosphatase (U/L) Date Value 07/30/2022 68 Bilirubin, Total (mg/dL) Date Value 07/30/2022 0.4 AST (U/L) Date Value 07/30/2022 14 ALT (U/L) Date Value 07/30/2022 7 DIAGNOSIS: (D47.3) Essential thrombocythemia (HCC) (primary encounter diagnosis) (D50.9) Iron deficiency anemia, unspecified iron deficiency anemia type PAST MEDICAL HISTORY Diagnosis Date CAD (coronary artery disease) CVA (cerebral vascular accident) (HCC) Depression GERD (gastroesophageal reflux disease) Hx of basal cell carcinoma Hypertension Osteoporosis Thrombocytopenia (HCC) PAST SURGICAL HISTORY Procedure Laterality Date ANKLE pins and plate CHOLECYSTECTOMY HX EYE SURGERY HX gas bubbles in right eye STENTS (SPECIFY) cardiac Social History Tobacco Use Smoking status: Former Packs/day: 1.00 Types: Cigarettes Start date: 12/30/2009 Quit date: 08/01/2020 Years since quittin.9 Smokeless tobacco: Never Substance Use Topics Alcohol use: Yes Drug use: No FAMILY HISTORY Problem Relation Age of Onset Cancer Mother Diabetes Mother Diabetes Father other (cirrhosis of liver [Other]) Father I spent a total of 30 minutes on the date of the service which included preparing to see the patient, [id number] patient care, completing clinical documentation, performing a medically appropriate examination, counseling and educating the patient/family/caregiver, ordering medications, tests, or procedures, and independently interpreting results (not separately reported). Rod Roman MD, CPE [facility] [place], [place] CC: Tito Hillman MD [address] [facility] [id number] documented in this encounter [facility] 04-30-2022 History of Presen t illness Narrative Patient Identification confirmed: yes. Injection given and documented on DEC per provider order. Katya Craig documented in this encounter [facility] 04-02-2022 Nurse Note Patient Identification confirmed: yes. Injection given and documented on DEC per provider order. Kiera Rey Ma documented in this encounter [facility] 03-05-2022 History of Presen t illness Narrative Images from the original note were not included. NAME: Josefa Castillo CLINIC NO.: [id number] DATE OF SERVICE: March 05, 2022 Some elements in this clinic note that are critical to medical decision making have been carefully reviewed and included from a prior clinic note dated: December 11, 2021 Referring Provider: Tito Hillman MD Additional Clinicians involved in Josefa Castillo's care: CC: Follow up ASSESSMENT: 1. ET: 81 year old woman with essential thrombocythemia. She has been treated with Hydrea since 2001 when she suffered a mini-stroke and was found to have thrombocytosis while living in [place]. She has been on various dosing through the years, but as of the last 5 years, she had consistently been on 500 mg daily. 08/21/2021 she was increased for a brief period of time but then returned to her typical dose of 500 mg daily where she remains. Labs remain stable. Platelet Count (k/uL) Date Value 03/05/2022 422 12/11/2021 473 2. B12 deficiency Will continue with B12 monthly PLAN: - Labs/Path: 1. Labs every 4 weeks, CBC, CMP 2. Labs to include B12 in 12 weeks. - Return/Referrals: 1. RTC in 12 weeks with labs same day. - Meds/Rx 1. Continue current regimen of Hydrea 500 mg daily 2. B12 Shot today and every 4 weeks. HPI: Updated Visit, March 05, 2022: Doing well on current regimen of care. No complaints. Continues to benefit from B12 shots. Updated Visit, December 11, 2021: Doing well aside from chronic arthralgias and associated back pain. Labs stable. B12 due today. Updated Visit, September 18, 2021: Josefa is doing very well today and platelets have stabilized on current regimen of hydrea. She has no complaints. Updated Visit, September 04, 2021: Mrs. Castillo returns today for a 2 week follow up. At her previous visit we increased her Hydrea to 500 mg daily except 1000 mg on days Wednesday, Wednesday and Wednesday due to an upward trend of her platelets and a bout of epistaxis. She has tolerated the change in dose and confirmed she is taking it appropriately. She has not had any additional bleeding episodes either. Updated Visit, August 21, 2021: Mrs. Castillo returns for follow up. She has been on Hydrea 500 mg daily for the last 5 years along with daily aspirin. Prior to that, she was on various dosing of hydrea. She has been feeling well. She did have a nose bleed 2 weeks ago that lasted about 10 minutes. No other bleeding. No evidence of clots. No new meds or other medical changes. 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 Counts remain stable and she states she feels a boost of energy whenever she gets her B12 shot. Will continue current plan. 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 She continues to do well but has been having some intermittent chest pain. Dr. Hillman ordered a stress test for the intermittent chest pain and felt that it could be cadiac vs. Reflux. Of note, she quit smoking 08/23/2020. She continues to require vitamin B12 injections and counts remain stable on current dosing of Hydrea. Updated Visit, November 11, 2020: 80 yo woman with ET controlled with hydrea 500 mg daily. Doing well with 2 new great granchildren born in and in the New year. Counts well controlled.Feels good when she gets her B12 and has a surge of energy. Updated Visit, August 19, 2020: Josefa Castillo returns for three-month follow-up. She remains on Hydrea 500 mg daily and is tolerating it well. She denies any bleeding or abnormal bruising. No signs of blood clots. She was recently treated for a urinary tract infection and finished an antibiotic last Wednesday. She complains of problems with her tongue since last . She reports burning to the roof of her mouth. No obvious mouth sores. Otherwise, she has been doing well. Updated Visit, May 20, 2020: 79 yo woman seen for Essential Thrombocythemia and B12 deficiency hadn't gotten her monthly B12 due to COVID. Now feels tired. Labs were reviewed after patient left. plt = [id number]. Updated Visit, February 07, 2020: Conducted by telephone This is a 79-year-old woman who was initially diagnosed with essential thrombocythemia 2001. She has been on hydrea. She was following with Dr. Bower in [facility]. Initially on 6 pills of hydrea. 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 She has not required other treatments. Also a history of iron deficiency and required iron infusions occasionally. 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 She moved here to live with her daughter and son in law and has been followed in this office since then. In May 2018 she underwent a Irasema fundoplication for paraesophageal hernia and has had chronic bowel problems since then. She has lost almost 117 pounds in relation to this. She is otherwise doing well but has chronic pain which is managed by her primary care physician and is unchanged. She would like to get her laboratories done at her PCPs office and once I have those results we can discuss any changes to her current regimen of therapy. REVIEW OF SYSTEMS Per HPI and otherwise negative by full review of organ systems. ECOG PERFORMANCE STATUS: 1 PHYSICAL EXAMINATION: Vitals: BP 178/87 Pulse 64 Temp (Src) 97.8 (Temporal) Resp 16 Ht 5' 2.244 (1.58m) Wt 129 lb 9.6 oz (58.8kg) SpO2 98% BMI 23.52 kg/(m^2). Body surface area is 1.61 meters squared. Exam limited to gross visualization where appropriate due to COVID-19. Gen.: This is an age-appropriate patient in no acute distress. Head: Appears atraumatic with no visible lesions. Eyes: Pupils equally round and reactive to light, extraocular muscles are intact. Neck: Supple. Mouth: Mucous membranes appeared to be moist. Respiratory: Appears to be respiring comfortably. Neurologic: Nonfocal to gross visualization. Alert and oriented 3. Psychiatric: No evidence of inappropriate anxiety or depression. Skin: Visible areas of skin without rash, lesions, wounds or petechiae. ALLERGIES: ALLERGIES Allergen Reactions Morphine Unknown ? Per patient vomiting with pills but able to tolerate IV Upset stomach Sulfa (Sulfonamide * Unknown Stomach didn't tolerate it Upset stomach Sulfasalazine Unknown Sulfur Unknown MEDICATIONS: busPIRone (BUSPAR) 7.5 mg tablet Take 7.5 mg by mouth twice daily. lisinopril (ZESTRIL, PRINIVIL) 5 mg tablet Take 5 mg by mouth once daily. tetracycline, nystatin, hydrocortisone, diphenhydrAMINE MAGIC MOUTHWASH SUSPENSION Swish and swallow 1 tsp 4 times daily as needed. Hydrocortisone 120mg, 30 ml Nystatin 100,000 Unit/ml Susp, 30 ml Lidocaine viscous 2%, QS 240ml of Diphenhydramine Elixir 12.5mg/5ml. Label bottle Shake Well meloxicam (MOBIC) 15 mg tablet Take 15 mg by mouth once daily. nystatin (NYSTOP) powder Apply 1 application to affected area four times daily. pantoprazole DR (PROTONIX) 40 mg tablet pantoprazole 40 mg tablet,delayed release Take 1 tablet every day by oral route. ondansetron (ZOFRAN) 8 mg tablet Take 1 tablet by mouth once daily as needed for Nausea/Vomiting. VENTOLIN HFA 90 mcg/actuation inhaler Inhale 2 Puffs as instructed every 4 hours as needed. atorvastatin (LIPITOR) 20 mg tablet Take 20 mg by mouth daily at bedtime. HYDROcodone-acetaminophen (NORCO) 5-325 mg per tablet Take 1 tablet by mouth every 6 hours as needed. metoprolol tartrate, short acting, (LOPRESSOR) 25 mg tablet Take 12.5 mg by mouth twice daily. Omeprazole 40 mg capsule Take 40 mg by mouth once daily. hydroxyurea (HYDREA) 500 mg capsule Take 500 mg by mouth once daily. Patient takes 500 mg daily except 1000 mg on Wednesday, Wednesday and Fridays as of 08/20/2021 PARoxetine (PAXIL) 40 mg tablet Take 40 mg by mouth once daily. isosorbide mononitrate ER (IMDUR) 60 mg 24 hr tablet Take 60 mg by mouth once daily. aspirin, enteric coated (ASPIRIN, ENTERIC COATED) 81 mg EC tablet Take 81 mg by mouth once daily. 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 Plan: VITAMIN B12 BLOOD (M85.89) Osteopenia of multiple sites Plan: VITAMIN B12 BLOOD PAST MEDICAL HISTORY Diagnosis Date CAD (coronary artery disease) CVA (cerebral vascular accident) (HCC) Depression GERD (gastroesophageal reflux disease) Hx of basal cell carcinoma Hypertension Osteoporosis Thrombocytopenia (HCC) PAST SURGICAL HISTORY Procedure Laterality Date ANKLE pins and plate CHOLECYSTECTOMY HX EYE SURGERY HX gas bubbles in right eye STENTS (SPECIFY) cardiac Social History Tobacco Use Smoking status: Former Smoker Packs/day: 1.00 Start date: 12/30/2009 Quit date: 08/01/2020 Years since quittin.5 Smokeless tobacco: Never Used Substance Use Topics Alcohol use: Yes Drug use: No FAMILY HISTORY Problem Relation Age of Onset Cancer Mother Diabetes Mother Diabetes Father other (cirrhosis of liver [Other]) Father I spent a total of 20 minutes on the date of the service which included preparing to see the patient, [id number] patient care, completing clinical documentation and ordering medications, tests, or procedures. Rod Roman MD, CPE [facility] [place], [place] CC: Tito Hillman MD [address] [id number] documented in this encounter [facility] 01-30-2022 Nurse Note Patient Identification confirmed: yes. Injection given and documented on DEC per provider order. Lolly Reagan documented in this encounter [facility] Evaluation note Diagnosis Essential thrombocythemia (HCC)- Primary Essential thrombocythemia Megaloblastic anemia due to vitamin B12 deficiency Other vitamin B12 deficiency anemia Osteopenia of multiple sites [facility] Diagnosis Megaloblastic anemia due to vitamin B12 deficiency- Primary Other vitamin B12 deficiency anemia [facility]* Diagnosis Megaloblastic anemia due to vitamin B12 deficiency- Primary Other vitamin B12 deficiency anemia documented [facility]* Diagnosis Megaloblastic anemia due to vitamin B12 deficiency- Primary Other vitamin B12 deficiency anemia [facility]* Diagnosis Megaloblastic anemia due to vitamin B12 deficiency- Primary Other vitamin B12 deficiency anemia documented [facility]* Diagnosis Essential thrombocythemia (HCC)- Primary Essential thrombocythemia Iron deficiency anemia, unspecified iron deficiency anemia type documented in [facility]* Diagnosis Essential thrombocythemia (HCC)- Primary Essential thrombocythemia Megaloblastic anemia due to vitamin B12 deficiency Other vitamin B12 deficiency anemia Iron deficiency anemia, unspecified iron deficiency anemia type documented in [facility]* Diagnosis Essential thrombocythemia (HCC)- Primary Essential thrombocythemia Megaloblastic anemia due to vitamin B12 deficiency Other vitamin B12 deficiency anemia documented [facility]* Diagnosis Megaloblastic anemia due to vitamin B12 deficiency- Primary Other vitamin B12 deficiency anemia Essential thrombocythemia (HCC) Essential thrombocythemia documented in this encounter [facility] note* Diagnosis Left hip pain- Primary Pain in joint, pelvic region and thigh Pain from implanted hardware, initial encounter [facility] Diagnosis Essential thrombocythemia (HCC)- Primary Essential thrombocythemia Megaloblastic anemia due to vitamin B12 deficiency Other vitamin B12 deficiency anemia documented in this encounter [facility] for referral (narrative)* Consultation (Routine) - Authorized Specialty Diagnoses / Procedures Referred By Altagracia yuen Referred To Contact Orthopaedic Surgery Diagnoses Pain from implanted hardware, initial encounter Jr. Kaylan Stewart DO [address] [facility] [address] [place] [address] Aristeo George MD [address] [place] [address] [address] [place] [address] Referral ID Status Reason Start Date Expiration Date Visits Requested Visits Authorized [id number] Authorized Specialty Services Required 12/01/2023 05/29/2024 1 1 [facility] Summary Purpose Family History No Family History Records FoundNo Family History Records FoundNo Family History Records FoundNo Family History Records FoundNo Family History Records FoundNo Family History Records Found Advance Directives No Advanced Directives Records FoundNo Advanced Directives Records FoundNo Advanced Directives Records FoundNo Advanced Directives Records FoundNo Advanced Directives Records FoundNo Advanced Directives Records Found Medications Administered Section Inactive Administered Medications - up to 3 most recent administrations Medication Order MAR Action Action Date Dose Rate Site cyanocobalamin 1,000 mcg injection 1,000 mcg, INTRAMUSCULAR, ONCE, 1 dose, On Wed03/05/22 at 1200 Given 03/05/2022 12:00 PM EDT 1,000 mcg Deltoid, Left Inactive Administered Medications - up to 3 most recent administrations Medication Order MAR Action Action Date Dose Rate Site cyanocobalamin 1,000 mcg injection 1,000 mcg, INTRAMUSCULAR, ONCE, 1 dose, On [place] 04/02/22 at 1130 Given 04/02/2022 11:37 AM EDT 1,000 mcg Deltoid, Left Inactive Administered Medications - up to 3 most recent administrations Medication Order MAR Action Action Date Dose Rate Site cyanocobalamin 1,000 mcg injection 1,000 mcg, INTRAMUSCULAR, ONCE, 1 dose, On Wed04/30/22 at 1130 Given 04/30/2022 11:28 AM EDT 1,000 mcg Deltoid, Left Inactive Administered Medications - up to 3 most recent administrations Medication Order MAR Action Action Date Dose Rate Site cyanocobalamin 1,000 mcg injection 1,000 mcg, INTRAMUSCULAR, ONCE, 1 dose, On Wed07/30/22 at 1100 Given 07/30/2022 11:45 AM EDT 1,000 mcg Deltoid, Left Inactive Administered Medications - up to 3 most recent administrations Medication Order MAR Action Action Date Dose Rate Site cyanocobalamin 1,000 mcg injection 1,000 mcg, INTRAMUSCULAR, ONCE, 1 dose, On Wed12/17/22 at 1100 Given 12/17/2022 11:10 AM EST 1,000 mcg Deltoid, Left Inactive Administered Medications - up to 3 most recent administrations Medication Order MAR Action Action Date Dose Rate Site cyanocobalamin 1,000 mcg injection 1,000 mcg, INTRAMUSCULAR, ONCE, 1 dose, On [place] 04/08/23 at 1130 Given 04/08/2023 11:14 AM EDT 1,000 mcg Deltoid, Left Additional Source Comments INFORMATION SOURCE (unrecogn ized section and content) DATE CREATED AUTHOR 11/11/2019 [facility] [place] [facility] DATE CREATED AUTHOR AUTHOR'S ORGANIZ ATION 02/01/2023 [facility] DATE CREATED AUTHOR AUTHOR'S ORGANIZ ATION 02/24/2023 [facility] DATE CREATED AUTHOR AUTHOR'S ORGANIZ ATION 01/24/2024 [facility] DATE CREATED AUTHOR AUTHOR'S ORGANIZ ATION 02/24/2024 [facility] DATE CREATED AUTHOR AUTHOR'S ORGANIZ ATION 04/05/2024 [facility] Source Comments (unrecognize d section and content) In the event this informatio n is protected by the Federal Confidentiality of Alcohol and Drug Abuse Patient Records regulations: The Federal rules restrict any use of the information to criminally investigate or prosecute any alcohol or drug abuse patient.[facility] the event this information is protected by the Federal Confidentiality of Alcohol and Drug Abuse Patient Records regulations: The Federal rules restrict any use of the information to criminally investigate or prosecute any alcohol or drug abuse patient.[facility] the event this information is protected by the Federal Confidentiality of Alcohol and Drug Abuse Patient Records regulations: The Federal rules restrict any use of the information to criminally investigate or prosecute any alcohol or drug abuse patient.[facility] the event this information is protected by the Federal Confidentiality of Alcohol and Drug Abuse Patient Records regulations: The Federal rules restrict any use of the information to criminally investigate or prosecute any alcohol or drug abuse patient.[facility] the event this information is protected by the Federal Confidentiality of Alcohol and Drug Abuse Patient Records regulations: The Federal rules restrict any use of the information to criminally investigate or prosecute any alcohol or drug abuse patient.[facility] the event this information is protected by the Federal Confidentiality of Alcohol and Drug Abuse Patient Records regulations: The Federal rules restrict any use of the information to criminally investigate or prosecute any alcohol or drug abuse patient.[facility] the event this information is protected by the Federal Confidentiality of Alcohol and Drug Abuse Patient Records regulations: The Federal rules restrict any use of the information to criminally investigate or prosecute any alcohol or drug abuse patient.[facility] the event this information is protected by the Federal Confidentiality of Alcohol and Drug Abuse Patient Records regulations: The Federal rules restrict any use of the information to criminally investigate or prosecute any alcohol or drug abuse patient.[facility] the event this information is protected by the Federal Confidentiality of Alcohol and Drug Abuse Patient Records regulations: The Federal rules restrict any use of the information to criminally investigate or prosecute any alcohol or drug abuse patient.[facility] the event this information is protected by the Federal Confidentiality of Alcohol and Drug Abuse Patient Records regulations: The Federal rules restrict any use of the information to criminally investigate or prosecute any alcohol or drug abuse patient.[facility] the event this information is protected by the Federal Confidentiality of Alcohol and Drug Abuse Patient Records regulations: The Federal rules restrict any use of the information to criminally investigate or prosecute any alcohol or drug abuse patient.[facility] the event this information is protected by the Federal Confidentiality of Alcohol and Drug Abuse Patient Records regulations: The Federal rules restrict any use of the information to criminally investigate or prosecute any alcohol or drug abuse patient.[facility] the event this information is protected by the Federal Confidentiality of Alcohol and Drug Abuse Patient Records regulations: The Federal rules restrict any use of the information to criminally investigate or prosecute any alcohol or drug abuse patient.[facility] Reason for Visit (unrecogniz ed section and content) Reason Comments Thrombocytopenia Reason Comments thrombocythemia Reason Comments B-12 Injection Reason Comments Essential thrombocythemia Follow up Reason Comments Essential thrombocythemia Reason Comments essentail thrombocythemia Reason Comments Pain Reason Comments Lab Orders Care Teams (unrecognized sec tion and content) Nutritional Yeast Supervisor Relationship Specialty Start Date End Date Nadslick Tito Lopez PCP - General Family Practice 06/01/16 Nutritional Yeast Supervisor Relationship Specialty Start Date End Date KadyTito PCP - General Family Practice 06/01/16 Nutritional Yeast Supervisor Relationship Specialty Start Date End Date KadyTito PCP - General Family Practice 06/01/16 Nutritional Yeast Supervisor Relationship Specialty Start Date End Date KadyTito PCP - General Family Practice 06/01/16 Nutritional Yeast Supervisor Relationship Specialty Start Date End Date KadyTito PCP - General Family Medicine 06/01/16 Nutritional Yeast Supervisor Relationship Specialty Start Date End Date ModestoTito ornelas PCP - General Family Medicine 06/01/16 Nutritional Yeast Supervisor Relationship Specialty Start Date End Date ModestoTito ornelas PCP - General Family Medicine 06/01/16 Nutritional Yeast Supervisor Relationship Specialty Start Date End Date KadyTito PCP - General Family Medicine 06/01/16 Nutritional Yeast Supervisor Relationship Specialty Start Date End Date KadyTito PCP - General Family Medicine 06/01/16 Nutritional Yeast Supervisor Relationship Specialty Start Date End Date Tito Hillman PCP - General Family Medicine 06/01/16 Nutritional Yeast Supervisor Relationship Specialty Start Date End Date Tito Hillman MD [address] [place] [id number] PCP - General Family Medicine 11/23/23 Nutritional Yeast Supervisor Relationship Specialty Start Date End Date Tito Hillman PCP - General Family Medicine 06/01/16 FOR RECORDS PERTAINING TO PATIENTS WHO ARE OR HAVE BEEN ENROLLED IN A CHEMICAL DEPENDENCY/SUBSTANCEABUSE PROGRAM, SOME INFORMATION MAY BE OMITTED. This clinical summary was aggregated from multiple sources. Caution should be exercised in using it in the provision of clinical care. This summary normalizes information from multiple sources, and as a consequence, information in this document may materially change the coding, format and clinical context of patient data. In addition, data may be omitted in some cases. CLINICAL DECISIONS SHOULD BE BASED ON THE PRIMARY CLINICAL RECORDS. [facility] [employer] [facility]. provides no warranty or guarantee of the accuracy or completeness of information in this document.
[2024-06-28 19:02] LABS: Basophils Absolute Auto 0.1 10^3/uL (0.0-0.1); Basophils Percent Auto 0.9 % (0.2-2.0); Eosinophils Absolute Auto 0.1 10^3/uL (0.0-0.7); Eosinophils Percent Auto 1.4 % (0.9-7.0); Hematocrit 34.9 % (36.0-48.0); Hemoglobin 11.8 g/dL (12.0-16.0); Immature Granulocytes Abs Auto 0.04 10^3/uL (0.00-0.03); Immature Granulocytes Pct Auto 0.6 % (0.0-0.5); Lymphocytes Absolute Auto 1.4 10^3/uL (1.2-3.8); Lymphocytes Percent Auto 21.6 % (20.5-60.0); Mean Corpuscular HGB Conc 33.8 g/dL (29.9-35.2); Mean Corpuscular Volume 124.2 fL (81.0-99.0); Monocytes Absolute Auto 0.7 10^3/uL (0.3-0.8); Monocytes Percent Auto 10.2 % (1.7-12.0); Neutrophils Absolute Auto 4.3 10^3/uL (1.4-6.5); Neutrophils Percent Auto 65.3 % (43.0-75.0); Platelet Count 498 10^3/uL (150-450); Red Cell Distribution Width 16.9 % (11.0-15.0); White Blood Count 6.5 10^3/uL (4.0-11.0)
[2024-06-28 19:09] LABS: Erythrocyte Sedimentation Rate 10 mm/hr (<=30)
[2024-06-28 19:15] LABS: Red Blood Count 2.81 10^6/uL (4.20-5.40)
[2024-06-28 19:16] LABS: INR 1.07; Prothrombin Time 11.3 sec (9.0-11.6)
--- NOTE | 2024-06-28 19:18 | PC.NURSE ---
this nurse assumed care for pt Report received from Rosalind MICHELLE while pt in [place] This nurse stopped in and spoke with pt's family waiting at bedside
[2024-06-28 19:19] LABS: Alanine Aminotransferase 13 U/L (14-59); Albumin Globulin Ratio 1.3; Albumin Level 3.7 g/dL (3.4-5.0); Alkaline Phosphatase 69 U/L (46-116); Anion Gap 10.9; Aspartate Amino Transferase 10 U/L (15-37); BUN Creatinine Ratio 13.6; Bilirubin Total 0.4 mg/dL (0.2-1.0); Calcium 8.7 mg/dL (8.5-10.1); Carbon Dioxide 29.4 mmol/L (21.0-32.0); Chloride 102 mmol/L (98-107); Estimated GFR (African America 57 (>=60); Estimated GFR (Non-African Ame 47 (>=60); Globulin 2.8 g/dL; Glucose 122 mg/dL (74-106); Potassium 4.3 mmol/L (3.5-5.1); Sodium 138 mmol/L (136-145); Total Protein 6.5 g/dL (6.4-8.2)
[2024-06-28 19:21] LABS: C Reactive Protein <0.50 mg/dL (<=0.50); Lactate/Lactic Acid 1.2 mmol/L (0.4-2.0); Troponin I High Sensitivity 4.6 pg/mL (4.0-51.3)
[2024-06-28] MEDS: PROMETHAZINE HCL 12.5 MG in 0.9 % SODIUM CHLORIDE 50 ML 202 MG IV (19:32)
[2024-06-28] MEDS: FENTANYL CITRATE/PF 100 MCG/2 ML VIAL 25 MCG IV (19:33)
[2024-06-28] MEDS: METHYLPREDNISOLONE SOD SUCC PF 125 MG/2 ML VIAL IVP (19:34)
--- NOTE | 2024-06-28 19:40 | PC.NURSE ---
This nurse spoke with pt after she returned from CT Pt states her pain directly below her left eye is a 6/10 pt states she has pain on the right side of her face as well but nothing like the left side Pt has no facial droop, speech issues, or one sided weakness noted Pt states her vision in her left eye is horrible Pt does wear glasses but is not wearing them at this time Pt states she can see out of it but it is not clear, she states her vision in her right eye is normal A visual acuity will be performed
--- NOTE | 2024-06-28 21:21 | PC.NURSE ---
Anne-Marie DUMONT had phone consult with Neurologist from [facility] After speaking with family TIM Xie decided she would like to admit pt for further rule out testing
--- OUTSIDE RECORDS SUMMARY | 2024-06-28 21:58 | XMS_ITS | CCD ---
Author Organization [facility] Care Team Providers Care Top Taper Machine Name Role Phone DESTINEE SMART Admitting Unavailable DESTINEE SMART Attending Unavailable UNKNOWN, PHYSICIAN Referring Unavailable UNKNOWN, PHYSICIAN Primary Care Unavailable Kady, Tito Lopez Primary Care Provider Naderejohnson, Tito Lopez Primary Care Provider [phone] Naderer, Tito Lopez Primary Care Provider [phone] NADEREJohnson, DR TITO Lopez Primary Care Unavailable [...] Unavailable Tito Hillman MD Primary Care Provider [phone] JR. DOREEN, KAYLAN Kapadia Attending Unavaila lesley [...] Consulting Unavailable Tito Hillman Primary Care Provider [phone] TITO HILLMAN Primary Care Unavailable ABHYANKAR, ROD [...] source) Morphine; Translations: [MORPHINE] Drug Allergy 4 [facility] Repository sulfaSALAzine (1 source) sulfaSALAzine; Translations: [SULFASALAZINE] Drug Allergy 4 [facility] Repository Sulfonamides (antibiotic) (1 source) Sulfonamides (Antibiotic); Translations: [SULFA (SULFONAMIDE ANTIBIOTICS)] Drug Allergy 5 [facility] Repository Sulfur (1 source) Sulfur; Translations: [SULFUR] Drug Allergy 4 [facility] (16 sources) Morphine; Translations: [MORPHINE] Drug Allergy 4 Unknown, Rash, GI intolerance [facility] (13 sources) sulfaSALAzine Drug Allergy 4 Unknown [facility] (16 sources) Sulfonamides (Antibiotic); Translations: [SULFA (SULFONAMIDE ANTIBIOTICS)] Drug Allergy 4 Unknown, Swelling, Rash [facility] (13 sources) Sulfur Drug Allergy 4 Unknown [facility] (1 source) Morphine Drug Allergy 6 [facility] Rep[facility] (1 source) Sulfonamides (Antibiotic) Drug allergy (disorder) 6 [facility] Rep[facility] Medications Current Medications Medication Drug Class(es) Dates Sig (Normalized) Sig (Original) acetaminophen 325 mg / HYDROcodone bitartrate 5 mg oral tablet (15 sources) Opioid Agonist Start: 11-29-2023 End: 12-29-2023 take 1 tablet by mouth four times daily as needed for pain HYDROcodone-aceta minophen ([place]) 5-325 MG tablet Indications: DDD (degenerative disc [...] ely th every 6 hours as needed. 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; Translations: [INTERMEDIATE CURRENT USE OF ASPIRIN] Onset: 08-25-2022 Episodic [...] Test Name Value Interpretation Reference Range Facility [facility] 04-04-2024 CNPN Telephone (HEMASA) JOSEFA CASTILLO ([id number]) 1940 F Date Time Provider Department 04/04/24 [...] 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 XR HIP LEFT (2-3 VIEWS)on XR HIP [...] Aristeo George DO 02/23/24 Final result Normal [facility] XR HIP 2-3 VW W PELVIS [...] Aristeo George DO 01/07/24 Final result Normal [facility] XR HIP 2-3 VW W PELVIS [...] out with osteoarthritis left hip Interpreted by: Aristeo George DO Signed by: Aristeo George DO 12/29/23 Final result Normal [facility] CBC with Diffon 12-22-2023 Abs. Basophil 0.00 k/uL Normal 0.00-0.20 [facility] Comment on above: Performed By: #### C DP #### [place] [address] [employer] Operator: Ti Willis MD Abs.Imm.Granulocyte 0.10 k/uL Normal 0.00-0.30 [facility] Comment on above: Performed By: #### C DP #### [place] [address] [employer] Operator: Ti Willis MD Abs.Neutrophil (Seg) 6.92 k/uL Normal 1.50-8.10 [facility] Comment on above: Performed By: #### C DP #### [place] [address] [employer] Operator: Ti Willis MD Basophils/100 WBC (Bld) 0 % Normal 0-2 [facility] Comment on above: Performed By: #### C DP #### [place] [address] [employer] Operator: Ti Willis MD Eosinophils (Bld) [#/Vol] 0.10 10*3/uL Normal 0.00-0.44 [facility] Comment on above: Performed By: #### C DP #### [address] [address] [employer] Operator: Ti Willis MD Eosinophils/100 WBC (Bld) 1 % Normal 1-4 [facility] Comment on above: Performed By: #### C DP #### [address] [address] [employer] Operator: Ti Willis MD Immature granulocytes/100 WBC (Bld) 1 % High 0 [facility] Comment on above: Performed By: #### C DP #### [address] [address] [employer] Operator: Ti Willis MD Lymphocytes (Bld) [#/Vol] 1.43 10*3/uL Normal 1.10-3.70 [facility] Comment on above: Performed By: #### C DP #### [address] [address] [employer] Operator: Ti Willis MD Lymphocytes/100 WBC (Bld) 15 % Low 24-43 [facility] Comment on above: Performed By: #### C DP #### [address] [address] [employer] Operator: Ti Willis MD Monocytes (Bld) [#/Vol] 0.95 10*3/uL Normal 0.10-1.20 [facility] Comment on above: Performed By: #### C DP #### [address] [address] [employer] Operator: Ti Willis MD Monocytes/100 WBC (Bld) 10 % Normal 3-12 [facility] Comment on above: Performed By: #### C DP #### [address] [address] [employer] Operator: Ti Willis MD Morphology Juni (Bld) [Interp] ANISOCYTOSIS PRESENT Normal [facility] Comment on above: Result Comment: MACR OCYTOSIS PRESENT Performed By: #### C DP #### [address] [address] [employer] Operator: Ti Willis MD Neutrophil (Seg) 73 % High 36-65 [facility] Comment on above: Performed By: #### C DP #### [address] [address] [employer] Operator: Ti Willis MD Erythrocyte distribution width (RBC) [Ratio] 18.4 % High 11.8-14.4 [facility] Comment on above: Performed By: #### C DP #### [address] [address] [employer] Operator: Ti Willis MD Hematocrit (Bld) [Volume fraction] 26.4 % Low 36.3-47.1 [facility] Comment on above: Performed By: #### C DP #### [address] [address] [employer] Operator: Ti Willis MD Hemoglobin (Bld) [Mass/Vol] 8.5 g/dL Low 11.9-15.1 [facility] Comment on above: Performed By: #### C DP #### [address] [address] [employer] Operator: Ti Willis MD MCH (RBC) [Entitic mass] 40.3 pg High 25.2-33.5 [facility] Comment on above: Performed By: #### C DP #### [address] [address] [employer] Operator: Ti Willis MD MCHC (RBC) [Mass/Vol] 32.2 g/dL Normal 28.4-34.8 [facility] Comment on above: Performed By: #### C DP #### [address] [address] [employer] Operator: Ti Willis MD MCV (RBC) [Entitic vol] 125.1 fL High 82.6-102.9 [facility] Comment on above: Performed By: #### C DP #### [address] [address] [employer] Operator: Ti Willis MD NRBC Automated 0.0 per 100 WBC Normal 0.0 [facility] Comment on above: Performed By: #### C DP #### [address] [address] [employer] Operator: Ti Willis MD Platelet mean volume (Bld) [Entitic vol] 10.6 fL Normal 8.1-13.5 [facility] Comment on above: Performed By: #### C DP #### [address] [address] [employer] Operator: Ti Willis MD Platelets (Bld) [#/Vol] 454 10*3/uL High 138-453 [facility] Comment on above: Performed By: #### C DP #### [address] [address] [employer] Operator: Ti Willis MD RBC (Bld) [#/Vol] 2.11 10*6/uL Low 3.95-5.11 [facility] Comment on above: Performed By: #### C DP #### [address] [address] [employer] Operator: Ti Willis MD WBC (Bld) [#/Vol] 9.5 10*3/uL Normal 3.5-11.3 [facility] Comment on above: Performed By: #### C DP #### [address] [address] [employer] Operator: Ti Willis MD B12/Folate Panelon Cobalamin (Vitamin B12) [Mass/Vol] 295 pg/mL Normal 232-1245 [facility] Comment on above: Performed By: #### W BK, WBCL, CVHH, WBNA, ABG, LACTIC, IOCAL, GLUO #### [address] [address] [employer] Operator: Ti Willis MD Folic Acid 5.6 ng/mL Normal >4.8 [facility] Comment on above: Performed By: #### W BK, WBCL, CVHH, WBNA, ABG, LACTIC, IOCAL, GLUO #### [address] [address] [employer] Operator: Ti Willis MD CBC with Diffon 12-21-2023 Abs. Basophil 0.00 k/uL Normal 0.00-0.20 [facility] Comment on above: Performed By: #### W BK, WBCL, CVHH, WBNA, ABG, LACTIC, IOCAL, GLUO #### [address] [address] [employer] Operator: Ti Willis MD Abs.Imm.Granulocyte 0.11 k/uL Normal 0.00-0.30 [facility] Comment on above: Performed By: #### W BK, WBCL, CVHH, WBNA, ABG, LACTIC, IOCAL, GLUO #### [facility] [address] [place] [address] [employer] Operator: Ti Willis MD Abs.Neutrophil (Seg) 8.96 k/uL High 1.50-8.10 [facility] Comment on above: Performed By: #### W BK, WBCL, CVHH, WBNA, ABG, LACTIC, IOCAL, GLUO #### [address] [address] [employer] Operator: Ti Willis MD Basophils/100 WBC (Bld) 0 % Normal 0-2 [facility] Comment on above: Performed By: #### W BK, WBCL, CVHH, WBNA, ABG, LACTIC, IOCAL, GLUO #### [address] [address] [employer] Operator: Ti Willis MD Eosinophils (Bld) [#/Vol] 0.11 10*3/uL Normal 0.00-0.44 [facility] Comment on above: Performed By: #### W BK, WBCL, CVHH, WBNA, ABG, LACTIC, IOCAL, GLUO #### [address] [address] [employer] Operator: Ti Willis MD Eosinophils/100 WBC (Bld) 1 % Normal 1-4 [facility] Comment on above: Performed By: #### W BK, WBCL, CVHH, WBNA, ABG, LACTIC, IOCAL, GLUO #### [address] [address] [employer] Operator: Ti Willis MD Immature granulocytes/100 WBC (Bld) 1 % High 0 [facility] Comment on above: Performed By: #### W BK, WBCL, CVHH, WBNA, ABG, LACTIC, IOCAL, GLUO #### [address] [address] [employer] Operator: Ti Willis MD Lymphocytes (Bld) [#/Vol] 1.12 10*3/uL Normal 1.10-3.70 [facility] Comment on above: Performed By: #### W BK, WBCL, CVHH, WBNA, ABG, LACTIC, IOCAL, GLUO #### [address] [address] [employer] Operator: Ti Willis MD Lymphocytes/100 WBC (Bld) 10 % Low 24-43 [facility] Comment on above: Performed By: #### W BK, WBCL, CVHH, WBNA, ABG, LACTIC, IOCAL, GLUO #### [address] [id number] [employer] Operator: Ti Willis MD Monocytes (Bld) [#/Vol] 0.90 10*3/uL Normal 0.10-1.20 [facility] Comment on above: Performed By: #### W BK, WBCL, CVHH, WBNA, ABG, LACTIC, IOCAL, GLUO #### [address] [phone] [employer] Operator: Ti Willis MD Monocytes/100 WBC (Bld) 8 % Normal 3-12 [facility] Comment on above: Performed By: #### W BK, WBCL, CVHH, WBNA, ABG, LACTIC, IOCAL, GLUO #### [address] [phone] [employer] Operator: Ti Willis MD Morphology Juni (Bld) [Interp] ANISOCYTOSIS PRESENT Normal [facility] Comment on above: Result Comment: MACR OCYTOSIS PRESENT Performed By: #### W BK, WBCL, CVHH, WBNA, ABG, LACTIC, IOCAL, GLUO #### [address] [address] [employer] Operator: Ti Willis MD Neutrophil (Seg) 80 % High 36-65 [facility] Comment on above: Performed By: #### W BK, WBCL, CVHH, WBNA, ABG, LACTIC, IOCAL, GLUO #### [address] [id number] [employer] Operator: Ti Willis MD Erythrocyte distribution width (RBC) [Ratio] 18.4 % High 11.8-14.4 [facility] Comment on above: Performed By: #### W BK, WBCL, CVHH, WBNA, ABG, LACTIC, IOCAL, GLUO #### [address] [address] [employer] Operator: Ti Willis MD Hematocrit (Bld) [Volume fraction] 24.4 % Low 36.3-47.1 [facility] Comment on above: Performed By: #### W BK, WBCL, CVHH, WBNA, ABG, LACTIC, IOCAL, GLUO #### [address] [phone] [employer] Operator: Ti Willis MD Hemoglobin (Bld) [Mass/Vol] 7.9 g/dL Low 11.9-15.1 [facility] Comment on above: Performed By: #### W BK, WBCL, CVHH, WBNA, ABG, LACTIC, IOCAL, GLUO #### [place] [address] [employer] Operator: Ti Willis MD MCH (RBC) [Entitic mass] 40.5 pg High 25.2-33.5 [facility] Comment on above: Performed By: #### W BK, WBCL, CVHH, WBNA, ABG, LACTIC, IOCAL, GLUO #### [place] [id number] [employer] Operator: Ti Willis MD MCHC (RBC) [Mass/Vol] 32.4 g/dL Normal 28.4-34.8 [facility] Comment on above: Performed By: #### W BK, WBCL, CVHH, WBNA, ABG, LACTIC, IOCAL, GLUO #### [address] [address] [employer] Operator: Ti Willis MD MCV (RBC) [Entitic vol] 125.1 fL High 82.6-102.9 [facility] Comment on above: Performed By: #### W BK, WBCL, CVHH, WBNA, ABG, LACTIC, IOCAL, GLUO #### [address] [address] [employer] Operator: Ti Willis MD NRBC Automated 0.0 per 100 WBC Normal 0.0 [facility] Comment on above: Performed By: #### W BK, WBCL, CVHH, WBNA, ABG, LACTIC, IOCAL, GLUO #### [address] [address] [employer] Operator: Ti Willis MD Platelet mean volume (Bld) [Entitic vol] 10.7 fL Normal 8.1-13.5 [facility] Comment on above: Performed By: #### W BK, WBCL, CVHH, WBNA, ABG, LACTIC, IOCAL, GLUO #### [address] [address] [employer] Operator: Ti Willis MD Platelets (Bld) [#/Vol] 366 10*3/uL Normal 138-453 [facility] Comment on above: Performed By: #### W BK, WBCL, CVHH, WBNA, ABG, LACTIC, IOCAL, GLUO #### [address] [address] [employer] Operator: Ti Willis MD RBC (Bld) [#/Vol] 1.95 10*6/uL Low 3.95-5.11 [facility] Comment on above: Performed By: #### W BK, WBCL, CVHH, WBNA, ABG, LACTIC, IOCAL, GLUO #### [address] [address] [employer] Operator: Ti Willis MD WBC (Bld) [#/Vol] 11.2 10*3/uL Normal 3.5-11.3 [facility] Comment on above: Performed By: #### W BK, WBCL, CVHH, WBNA, ABG, LACTIC, IOCAL, GLUO #### [address] [address] [employer] Operator: Ti Willis MD TSH w/reflex to FT4on 2023 Thyroid Stim. Horm. 3.24 uIU/mL Normal 0.30-5.00 [facility] Comment on above: Performed By: #### C DP #### [address] [address] [employer] Operator: Ti Willis MD Basic Metab w/rfx MGon 12-20 Anion gap [Moles/Vol] 10 mmol/L Normal 9-17 [facility] Comment on above: Performed By: #### C DP #### [address] [address] [employer] Operator: Ti Willis MD Calcium [Mass/Vol] 8.0 mg/dL Low 8.6-10.4 [facility] Comment on above: Performed By: #### C DP #### [address] [address] [employer] Operator: Ti Willis MD Chloride [Moles/Vol] 100 mmol/L Normal 98-107 [facility] Comment on above: Performed By: #### C DP #### [address] [address] [employer] Operator: Ti Willis MD CO2 [Moles/Vol] 25 mmol/L Normal 20-31 [facility] Comment on above: Performed By: #### C DP #### [address] [address] [employer] Operator: Ti Willis MD Creatinine [Mass/Vol] 0.7 mg/dL Normal 0.5-0.9 [facility] Comment on above: Performed By: #### C DP #### [facility] [employer] [address] [place] [address] [employer] Operator: Ti Willis MD GFR/1.73 sq M.predicted among non-blacks MDRD (S/P/Bld) [Vol rate/Area] mL/min/{1.73_m2} Normal >60 [facility] Comment on above: Result Comment: These [...] secretion. Performed By: #### C DP #### [address] [address] [employer] Operator: Ti Willis MD Glucose [Mass/Vol] 104 mg/dL High 70-99 [facility] Comment on above: Performed By: #### C DP #### [facility] [employer] [address] [place] [address] [employer] Operator: Ti Willis MD Potassium [Moles/Vol] 4.1 mmol/L Normal 3.7-5.3 [facility] Comment on above: Performed By: #### C DP #### [facility] [employer] [address] [place] [address] [employer] Operator: Ti Willis MD Sodium [Moles/Vol] 135 mmol/L Normal 135-144 [facility] Comment on above: Performed By: #### C DP #### [facility] [employer] [address] [place] [address] [employer] Operator: Ti Willis MD Urea nitrogen [Mass/Vol] 21 mg/dL Normal 8-23 [facility] Comment on above: Performed By: #### C DP #### [facility] [employer] [address] [place] [address] [employer] Operator: Ti Willis MD CBCon 12-20-2023 Erythrocyte distribution width (RBC) [Ratio] 18.5 % High 11.8-14.4 [facility] Comment on above: Performed By: #### C DP #### [address] [address] [employer] Operator: Ti Willis MD Hematocrit (Bld) [Volume fraction] 24.4 % Low 36.3-47.1 [facility] Comment on above: Performed By: #### C DP #### [address] [address] [employer] Operator: Ti Willis MD Hemoglobin (Bld) [Mass/Vol] 8.1 g/dL Low 11.9-15.1 [facility] Comment on above: Performed By: #### C DP #### [address] [address] [employer] Operator: Ti Willis MD MCH (RBC) [Entitic mass] 40.7 pg High 25.2-33.5 [facility] Comment on above: Performed By: #### C DP #### [address] [address] [employer] Operator: Ti Willis MD MCHC (RBC) [Mass/Vol] 33.2 g/dL Normal 28.4-34.8 [facility] Comment on above: Performed By: #### C DP #### [address] [address] [employer] Operator: Ti Willis MD MCV (RBC) [Entitic vol] 122.6 fL High 82.6-102.9 [facility] Comment on above: Performed By: #### C DP #### [address] [address] [employer] Operator: Ti Willis MD NRBC Automated 0.0 per 100 WBC Normal 0.0 [facility] Comment on above: Performed By: #### C DP #### [place] [address] [employer] Operator: Ti Willis MD Platelet mean volume (Bld) [Entitic vol] 10.6 fL Normal 8.1-13.5 [facility] Comment on above: Performed By: #### C DP #### [address] [address] [employer] Operator: Ti Willis MD Platelets (Bld) [#/Vol] 356 10*3/uL Normal 138-453 [facility] Comment on above: Performed By: #### C DP #### [address] [address] [employer] Operator: Ti Willis MD RBC (Bld) [#/Vol] 1.99 10*6/uL Low 3.95-5.11 [facility] Comment on above: Performed By: #### C DP #### [address] [address] [employer] Operator: Ti Willis MD WBC (Bld) [#/Vol] 10.3 10*3/uL Normal 3.5-11.3 [facility] Comment on above: Performed By: #### C DP #### [address] [address] [employer] Operator: Ti Willis MD Cult,Urineon 12-19-2023 Cult,Urine Specimen [...] Tobramycin <=1 SUSCEPTIBLE Trimethoprim/Sulfa <=20 SUSCEPTIBLE Susceptible [facility] Comment on above: Performed By: #### C DP #### [facility] [employer] [address] [place] [address] [employer] Operator: Ti Willis MD OPERATIVE REPORTon OPERATIVE REPORT [address] [id number] OPERATIVE REPORT PATIENT NAME: JOSEFA CASTILLO : 1940 MED REC NO: [id number] ROOM: [id number] ACCOUNT NO: [id number] ADMIT DATE: 12/15/2023 PROVIDER: Aristeo George DATE OF PROCEDURE: 12/17/2023 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 POSTOPERATIVE DIAGNOSIS: Failed hardware left proximal femur. PROCEDURE: Conversion of prior hip surgery to left total hip arthroplasty. SURGEON: Aristeo George DO QUILL MACHINE TENDER: Edgar Middleton MD, PGY-2, MD, PGY-4, and [...] 0 PDS, deep dermal layers with 2-0 [facility] (more content not included)... Normal [facility] Arterial Blood Gaseson 12-17 Ellis Test INFORMATION NOT PROVIDED [facility] Comment on above: Performed By: #### W BK, WBCL, CVHH, WBNA, ABG, LACTIC, IOCAL, GLUO #### [facility] [employer] [address] [place] [address] [employer] Operator: Ti Willis MD Body Temp. 36.0 [facility] Comment on above: Performed By: #### W BK, WBCL, CVHH, WBNA, ABG, LACTIC, IOCAL, GLUO #### [facility] [address] [place] [address] [employer] Operator: Ti Willis MD Carboxy Hgb 1.1 % Normal 0-5 [facility] Comment on above: Result Comment: Reference Range: Non-Smokers 0-2% Average Smoker 2-4% Heavy Smoker <10% Performed By: #### W BK, WBCL, CVHH, WBNA, ABG, LACTIC, IOCAL, GLUO #### [facility] [address] [place] [address] [employer] Operator: Ti Willis MD [id number] [facility] Comment on above: Performed By: #### W BK, WBCL, CVHH, WBNA, ABG, LACTIC, IOCAL, GLUO #### [address] [address] [employer] Operator: Ti Willis MD HCO3 (Bld) [Moles/Vol] 23.4 mmol/L Normal 22-27 [facility] Comment on above: Performed By: #### W BK, WBCL, CVHH, WBNA, ABG, LACTIC, IOCAL, GLUO #### [address] [address] [employer] Operator: Ti Willis MD Negative Base Excess 0.3 mmol/L Normal 0.0-2.0 [facility] Comment on above: Performed By: #### W BK, WBCL, CVHH, WBNA, ABG, LACTIC, IOCAL, GLUO #### [address] [address] [employer] Operator: Ti Willis MD Oxygen (Bld) [Partial pressure] 237.0 mm[Hg] High 75-95 [facility] Comment on above: Performed By: #### W BK, WBCL, CVHH, WBNA, ABG, LACTIC, IOCAL, GLUO #### [address] [address] [employer] Operator: Ti Willis MD Oxygen saturation in Blood 98.3 % Normal 94-100 [facility] Comment on above: Performed By: #### W BK, WBCL, CVHH, WBNA, ABG, LACTIC, IOCAL, GLUO #### [address] [address] [employer] Operator: Ti Willis MD pCO2 36.8 mmHg Normal 32-45 [facility] Comment on above: Performed By: #### W BK, WBCL, CVHH, WBNA, ABG, LACTIC, IOCAL, GLUO #### [facility] [employer] [address] [place] [address] [employer] Operator: Ti Willis MD pH (Bld) 7.418 [pH] Normal 7.350-7.450 [facility] Comment on above: Performed By: #### W BK, WBCL, CVHH, WBNA, ABG, LACTIC, IOCAL, GLUO #### [address] [address] [employer] Operator: Ti Willis MD CV Hgb/Hcton 7 Hematocrit (Bld) [Volume fraction] 35.4 % Low 36.3-47.1 [facility] Comment on above: Performed By: #### W BK, WBCL, CVHH, WBNA, ABG, LACTIC, IOCAL, GLUO #### [address] [address] [employer] Operator: Ti Willis MD Hemoglobin (Bld) [Mass/Vol] 11.5 g/dL Low 11.9-15.1 [facility] Comment on above: Performed By: #### W BK, WBCL, CVHH, WBNA, ABG, LACTIC, IOCAL, GLUO #### [facility] [employer] [address] [place] [address] [employer] Operator: Ti Willis MD Calcium, Ionicon 12-17-2023 Calcium [Moles/Vol] 1.14 mmol/L Normal 1.13-1.33 [facility] Comment on above: Performed By: #### W BK, WBCL, CVHH, WBNA, ABG, LACTIC, IOCAL, GLUO #### [facility] [facility] [employer] [address] [place] [address] [employer]: Ti Willis MD Chloride - Whole Blon 2023 Chloride [Moles/Vol] 106 mmol/L Normal 98-110 [facility] Comment on above: Performed By: #### W BK, WBCL, CVHH, WBNA, ABG, LACTIC, IOCAL, GLUO #### [facility] [employer] [address] [place] [address] [phone] [employer]: Ti Willis MD FLUORO FOR SURGICAL PROCEDUR ESon 12-17-2023 FLUORO FOR SURGICAL PROCEDURES Radiology exam is complete. No Radiologist dictation. Please follow up with ordering provider. Final result Normal [facility] Glucose,Whole Bloodon 2023 Glucose [Mass/Vol] 101 mg/dL Normal 65-105 [facility] Comment on above: Performed By: #### W BK, WBCL, CVHH, WBNA, ABG, LACTIC, IOCAL, GLUO #### [facility] [address] [place] [address] [phone] [employer]: Ti Willis MD Lactic Acidon 12-17-2023 Lactic Acid,Whole Bl 2.2 mmol/L High 0.7-2.1 [facility] Comment on above: Performed By: #### W BK, WBCL, CVHH, WBNA, ABG, LACTIC, IOCAL, GLUO #### [facility] [employer] [address] [place] [address] [phone] [employer]: Ti Willis MD Potassium - Whole Blon 12-17 Potassium [Moles/Vol] 3.3 mmol/L Low 3.6-5.0 [facility] Comment on above: Performed By: #### W BK, WBCL, CVHH, WBNA, ABG, LACTIC, IOCAL, GLUO #### [facility] [employer] [address] [place] [address] [phone] [employer]: Ti Willis MD Sodium - Whole Bloodon 12-17 Sodium [Moles/Vol] 137 mmol/L Normal 136-145 [facility] Comment on above: Performed By: #### W BK, WBCL, CVHH, WBNA, ABG, LACTIC, IOCAL, GLUO #### [employer] [address] [place] [address] [employer]: Ti Willis MD Type + Screenon 12-17-2023 Type + Screen Sample Expiration 12/20/2023,2359 Arm Band Number [id number] ABO/Rh(D) A POSITIVE Antibody Screen NEGATIVE Unit Number [id number] Blood Component Type Leukocyte Reduced Red Cell Unit Division 00 Status of Unit REL FROM ALLOC Transfusion Status OK TO TRANSFUSE Crossmatch Result COMPATIBLE Unit Number [id number] Blood Component Type Leukocyte Reduced Red Cell Unit Division 00 Status of Unit REL FROM ALLOC Transfusion Status OK TO TRANSFUSE Crossmatch Result COMPATIBLE Normal [facility] Comment on above: Performed By: #### C DP #### [facility] [employer] [address] [place] [address] [employer]: Ti Willis MD XR HIP 2-3 VW [...] Magana IV, MD 12/17/23 Final result Normal [facility] CBC with Diffon 12-16-2023 Abs. Basophil 0.05 k/uL Normal 0.00-0.20 [facility] Comment on above: Performed By: #### C DP #### [facility] [employer] [address] [place] [address] [employer]: Ti Willis MD Abs.Imm.Granulocyte 0.00 k/uL Normal 0.00-0.30 [facility] Comment on above: Performed By: #### C DP #### [address] [address] [employer]: Ti Willis MD Abs.Neutrophil (Seg) 2.52 k/uL Normal 1.50-8.10 [facility] Comment on above: Performed By: #### C DP #### [address] [address] [employer]: Ti Willis MD Basophils/100 WBC (Bld) 1 % Normal 0-2 [facility] Comment on above: Performed By: #### C DP #### [address] [address] [employer]: Ti Willis MD Eosinophils (Bld) [#/Vol] 0.09 10*3/uL Normal 0.00-0.44 [facility] Comment on above: Performed By: #### C DP #### [address] [address] [employer]: Ti Willis MD Eosinophils/100 WBC (Bld) 2 % Normal 1-4 [facility] Comment on above: Performed By: #### C DP #### [address] [address] [employer]: Ti Willis MD Immature granulocytes/100 WBC (Bld) 0 % Normal 0 [facility] Comment on above: Performed By: #### C DP #### [address] [address] [employer]: Ti Willis MD Lymphocytes (Bld) [#/Vol] 1.43 10*3/uL Normal 1.10-3.70 [facility] Comment on above: Performed By: #### C DP #### [address] [address] [employer]: Ti Willis MD Lymphocytes/100 WBC (Bld) 31 % Normal 24-43 [facility] Comment on above: Performed By: #### C DP #### [address] [address] [employer]: Ti Willis MD Monocytes (Bld) [#/Vol] 0.51 10*3/uL Normal 0.10-1.20 [facility] Comment on above: Performed By: #### C DP #### [address] [address] [employer]: Ti Willis MD Monocytes/100 WBC (Bld) 11 % Normal 3-12 [facility] Comment on above: Performed By: #### C DP #### [address] [address] [employer]: Ti Willis MD Morphology Juni (Bld) [Interp] ANISOCYTOSIS PRESENT Normal [facility] Comment on above: Result Comment: MACR OCYTOSIS PRESENT Performed By: #### C DP #### [address] [address] [employer]: Ti Willis MD Neutrophil (Seg) 55 % Normal 36-65 [facility] Comment on above: Performed By: #### C DP #### [address] [address] [employer]: Ti Willis MD Erythrocyte distribution width (RBC) [Ratio] 19.2 % High 11.8-14.4 [facility] Comment on above: Performed By: #### C DP #### [address] [address] [employer]: Ti Willis MD Hematocrit (Bld) [Volume fraction] 36.2 % Low 36.3-47.1 [facility] Comment on above: Performed By: #### C DP #### [address] [address] [employer]: Ti Willis MD Hemoglobin (Bld) [Mass/Vol] 11.9 g/dL Normal 11.9-15.1 [facility] Comment on above: Performed By: #### C DP #### [address] [address] [employer]: Ti Willis MD MCH (RBC) [Entitic mass] 39.5 pg High 25.2-33.5 [facility] Comment on above: Performed By: #### C DP #### [place] [address] [employer]: Ti Willis MD MCHC (RBC) [Mass/Vol] 32.9 g/dL Normal 28.4-34.8 [facility] Comment on above: Performed By: #### C DP #### [address] [address] [employer]: Ti Willis MD MCV (RBC) [Entitic vol] 120.3 fL High 82.6-102.9 [facility] Comment on above: Performed By: #### C DP #### [place] [address] [employer]: Ti Willis MD NRBC Automated 0.0 per 100 WBC Normal 0.0 [facility] Comment on above: Performed By: #### C DP #### [place] [address] [employer]: Ti Willis MD Platelet mean volume (Bld) [Entitic vol] 10.1 fL Normal 8.1-13.5 [facility] Comment on above: Performed By: #### C DP #### [place] [address] [employer]: Ti Willis MD Platelets (Bld) [#/Vol] 361 10*3/uL Normal 138-453 [facility] Comment on above: Performed By: #### C DP #### [address] [address] [employer]: Ti Willis MD RBC (Bld) [#/Vol] 3.01 10*6/uL Low 3.95-5.11 [facility] Comment on above: Performed By: #### C DP #### [address] [address] [employer]: Ti Willis MD WBC (Bld) [#/Vol] 4.6 10*3/uL Normal 3.5-11.3 [facility] Comment on above: Performed By: #### C DP #### [address] [address] [employer]: Ti Willis MD Basic Metabolic Profon 12-15 Anion gap [Moles/Vol] 12 mmol/L Normal 9-17 [facility] Comment on above: Performed By: #### C DP #### [address] [address] [employer]: Ti Willis MD Calcium [Mass/Vol] 9.0 mg/dL Normal 8.6-10.4 [facility] Comment on above: Performed By: #### C DP #### [address] [address] [employer]: Ti Willis MD Chloride [Moles/Vol] 100 mmol/L Normal 98-107 [facility] Comment on above: Performed By: #### C DP #### [address] [address] [employer]: Ti Willis MD CO2 [Moles/Vol] 24 mmol/L Normal 20-31 [facility] Comment on above: Performed By: #### C DP #### [address] [address] [employer]: Ti Willis MD Creatinine [Mass/Vol] 0.6 mg/dL Normal 0.5-0.9 [facility] Comment on above: Performed By: #### C DP #### [address] [address] [employer]: Ti Willis MD GFR/1.73 sq M.predicted among non-blacks MDRD (S/P/Bld) [Vol rate/Area] mL/min/{1.73_m2} Normal >60 [facility] Comment on above: Result Comment: These [...] secretion. Performed By: #### C DP #### [address] [address] [employer]: Ti Willis MD Glucose [Mass/Vol] 88 mg/dL Normal 70-99 [facility] Comment on above: Performed By: #### C DP #### [address] [address] [employer]: Ti Willis MD Potassium [Moles/Vol] 4.0 mmol/L Normal 3.7-5.3 [facility] Comment on above: Performed By: #### C DP #### [address] [address] [employer]: Ti Willis MD Sodium [Moles/Vol] 136 mmol/L Normal 135-144 [facility] Comment on above: Performed By: #### C DP #### [address] [address] [employer]: Ti Willis MD Urea nitrogen [Mass/Vol] 10 mg/dL Normal 8-23 [facility] Comment on above: Performed By: #### C DP #### [address] [address] [employer]: Ti Willis MD CBC with Diffon 12-15-2023 Abs. Basophil 0.12 k/uL Normal 0.0-0.2 [facility] Comment on above: Performed By: #### C DP #### [address] [address] [employer]: Ti Willis MD Abs.Imm.Granulocyte 0.00 k/uL Normal 0.00-0.30 [facility] Comment on above: Performed By: #### C DP #### [address] [address] [employer]: Ti Willis MD Abs.Neutrophil (Seg) 3.85 k/uL Normal 1.8-7.7 [facility] Comment on above: Performed By: #### C DP #### [address] [address] [employer]: Ti Willis MD Basophils/100 WBC (Bld) 2 % Normal 0-2 [facility] Comment on above: Performed By: #### C DP #### [address] [address] [employer]: Ti Willis MD Eosinophils (Bld) [#/Vol] 0.12 10*3/uL Normal 0.0-0.4 [facility] Comment on above: Performed By: #### C DP #### [address] [address] [employer]: Ti Willis MD Eosinophils/100 WBC (Bld) 2 % Normal 1-4 [facility] Comment on above: Performed By: #### C DP #### [address] [address] [employer]: Ti Willis MD Immature granulocytes/100 WBC (Bld) 0 % Normal 0 [facility] Comment on above: Performed By: #### C DP #### [address] [address] [employer]: Ti Willis MD Lymphocytes (Bld) [#/Vol] 1.49 10*3/uL Normal 1.0-4.8 [facility] Comment on above: Performed By: #### C DP #### [address] [address] [employer]: Ti Willis MD Lymphocytes/100 WBC (Bld) 24 % Normal 24-44 [facility] Comment on above: Performed By: #### C DP #### [address] [address] [employer]: Ti Willis MD Monocytes (Bld) [#/Vol] 0.62 10*3/uL Normal 0.1-0.8 [facility] Comment on above: Performed By: #### C DP #### [address] [address] [employer]: Ti Willis MD Monocytes/100 WBC (Bld) 10 % High 1-7 [facility] Comment on above: Performed By: #### C DP #### [address] [address] [employer]: Ti Willis MD Morphology Juni (Bld) [Interp] ANISOCYTOSIS PRESENT Normal [facility] Comment on above: Result Comment: MACR OCYTOSIS PRESENT Performed By: #### C DP #### [address] [address] [employer]: Ti Willis MD Neutrophil (Seg) 62 % Normal 36-66 [facility] Comment on above: Performed By: #### C DP #### [address] [address] [employer]: Ti Willis MD Erythrocyte distribution width (RBC) [Ratio] 18.8 % High 11.8-14.4 [facility] Comment on above: Performed By: #### C DP #### [address] [address] [employer]: Ti Willis MD Hematocrit (Bld) [Volume fraction] 41.1 % Normal 36.3-47.1 [facility] Comment on above: Performed By: #### C DP #### [address] [address] [employer]: Ti Willis MD Hemoglobin (Bld) [Mass/Vol] 13.9 g/dL Normal 11.9-15.1 [facility] Comment on above: Performed By: #### C DP #### [address] [address] [employer]: Ti Willis MD MCH (RBC) [Entitic mass] 40.5 pg High 25.2-33.5 [facility] Comment on above: Performed By: #### C DP #### [address] [address] [employer]: Ti Willis MD MCHC (RBC) [Mass/Vol] 33.8 g/dL Normal 28.4-34.8 [facility] Comment on above: Performed By: #### C DP #### [address] [address] [employer]: Ti Willis MD MCV (RBC) [Entitic vol] 119.8 fL High 82.6-102.9 [facility] Comment on above: Performed By: #### C DP #### [address] [address] [employer]: Ti Willis MD NRBC Automated 0.0 per 100 WBC Normal 0.0 [facility] Comment on above: Performed By: #### C DP #### [address] [address] [employer]: iT Willis MD Platelet mean volume (Bld) [Entitic vol] 9.7 fL Normal 8.1-13.5 [facility] Comment on above: Performed By: #### C DP #### [address] [address] [employer]: Ti Willis MD Platelets (Bld) [#/Vol] 426 10*3/uL Normal 138-453 [facility] Comment on above: Performed By: #### C DP #### [address] [address] [employer]: Ti Willis MD RBC (Bld) [#/Vol] 3.43 10*6/uL Low 3.95-5.11 [facility] Comment on above: Performed By: #### C DP #### [address] [address] [employer]: Ti Willis MD WBC (Bld) [#/Vol] 6.2 10*3/uL Normal 3.5-11.3 [facility] Comment on above: Performed By: #### C DP #### [address] [address] [employer]: Ti Willis MD PTon 12-15-2023 INR Coag (PPP) [Relative time] 1.1 {INR} Normal [facility] Comment on above: Result Comment: Therapeutic Range: Moderate Anticoagulant Intensity: INR = 2.0-3.0 High Anticoagulant Intensity: INR = 2.5-3.5 Performed By: #### C DP #### [employer] [address] [place] [address] [employer]: Ti Willis MD PT Coag (PPP) [Time] 13.6 s Normal 11.7-14.9 [facility] Comment on above: Performed By: #### C DP #### [employer] [address] [place] [address] [employer]: Ti Willis MD Vitamin D 25 OHon 12-15-2023 Vitamin D 25 OH 14.1 ng/mL Low >29.9 [facility] Comment on above: Result Comment: Reference Range: Vitamin D status Range Deficiency <20 ng/mL Mild Deficiency 20-30 ng/mL Sufficiency 30-100 ng/mL Toxicity >100 ng/mL Performed By: #### C DP #### [employer] [address] [place] [address] [employer]: Ti Willis MD XR FEMUR LEFT (MIN [...] Africa Colin MD 12/15/23 Final result Normal [facility] CBC W Auto Differential pane l (Bld)on 07-29-2023 Basophils (Bld) [#/Vol] 0.07 10*3/uL Normal <0.11 [facility] Comment on above: Order Comment: Speci men Type: BLOOD SPECIMEN Ordering Facility: [facility] Address: [address] [place] [address] Performed By: #### 5 7021-8 #### [facility] CLIA [id number] [address] [place] [address] Basophils/100 WBC (Bld) 0.9 % Normal [facility] Comment on above: Order Comment: Speci men Type: BLOOD SPECIMEN Ordering Facility: [facility] Address: [address] [place] [address] Performed By: #### 5 7021-8 #### [facility] CLIA [id number] [address] [place] [address] Differential cell count method Nom (Bld) Auto Normal [facility] Comment on above: Order Comment: Speci men Type: BLOOD SPECIMEN Ordering Facility: [facility] Address: [address] [place] [address] Performed By: #### 5 7021-8 #### [facility] CLIA [id number] [address] [place] [address] Eosinophils (Bld) [#/Vol] 0.12 10*3/uL Normal <0.46 [facility] Comment on above: Order Comment: Speci men Type: BLOOD SPECIMEN Ordering Facility: [facility] Address: [address] [place] [address] Performed By: #### 5 7021-8 #### [facility] CLIA [id number] [address] [place] [address] Eosinophils/100 WBC (Bld) 1.6 % Normal [facility] Comment on above: Order Comment: Speci men Type: BLOOD SPECIMEN Ordering Facility: [facility] Address: [address] [address] Performed By: #### 5 7021-8 #### [facility] CLIA [id number] [address] [place] [address] Erythrocyte distribution width (RBC) [Ratio] 14.0 % Normal 11.5-15.0 [facility] Comment on above: Order Comment: Speci men Type: BLOOD SPECIMEN Ordering Facility: [facility] Address: [address] [address] Performed By: #### 5 7021-8 #### [facility] CLIA [id number] [address] [place] [address] Hematocrit (Bld) [Volume fraction] 41.4 % Normal 36.0-46.0 [facility] Comment on above: Order Comment: Speci men Type: BLOOD SPECIMEN Ordering Facility: [facility] Address: [address] [address] Performed By: #### 5 7021-8 #### [facility] CLIA [id number] [address] [place] [address] Hemoglobin (Bld) [Mass/Vol] 13.6 g/dL Normal 11.5-15.5 [facility] Comment on above: Order Comment: Speci men Type: BLOOD SPECIMEN Ordering Facility: [facility] Address: [address] [address] Performed By: #### 5 7021-8 #### [facility] CLIA [id number] [address] [place] [address] Immature granulocytes (Bld) [#/Vol] 0.03 10*3/uL Normal <0.10 [facility] Comment on above: Order Comment: Speci men Type: BLOOD SPECIMEN Ordering Facility: [facility] Address: [address] [address] Performed By: #### 5 7021-8 #### [facility] CLIA [id number] [address] [place] [address] Immature granulocytes/100 WBC (Bld) 0.4 % Normal [facility] Comment on above: Order Comment: Speci men Type: BLOOD SPECIMEN Ordering Facility: [facility] Address: [address] [address] Performed By: #### 5 7021-8 #### [facility] CLIA [id number] [address] [place] [address] Lymphocytes (Bld) [#/Vol] 1.84 10*3/uL Normal 1.00-4.00 [facility] Comment on above: Order Comment: Speci men Type: BLOOD SPECIMEN Ordering Facility: [facility] Address: [address] [address] Performed By: #### 5 7021-8 #### [facility] CLIA [id number] [address] [place] [address] Lymphocytes/100 WBC (Bld) 24.6 % Normal [facility] Comment on above: Order Comment: Speci men Type: BLOOD SPECIMEN Ordering Facility: [facility] Address: [address] [address] Performed By: #### 5 7021-8 #### [facility] CLIA [id number] [address] [place] [address] MCH (RBC) [Entitic mass] 38.1 pg High 26.0-34.0 [facility] Comment on above: Order Comment: Speci men Type: BLOOD SPECIMEN Ordering Facility: [facility] Address: [address] [address] Performed By: #### 5 7021-8 #### [facility] CLIA [id number] [address] [place] [address] MCHC (RBC) [Mass/Vol] 32.9 g/dL Normal 30.5-36.0 [facility] Comment on above: Order Comment: Speci men Type: BLOOD SPECIMEN Ordering Facility: [facility] Address: [address] [address] Performed By: #### 5 7021-8 #### [facility] CLIA [id number] [address] [place] [address] MCV (RBC) [Entitic vol] 116.0 fL High 80.0-100.0 [facility] Comment on above: Order Comment: Speci men Type: BLOOD SPECIMEN Ordering Facility: [facility] Address: [address] [place] [address] Performed By: #### 5 7021-8 #### [facility] CLIA [id number] [address] [place] [address] Monocytes (Bld) [#/Vol] 0.64 10*3/uL Normal <0.87 [facility] Comment on above: Order Comment: Speci men Type: BLOOD SPECIMEN Ordering Facility: [facility] Address: [address] [place] [address] Performed By: #### 5 7021-8 #### [facility] CLIA [id number] [address] [place] [address] Monocytes/100 WBC (Bld) 8.6 % Normal [facility] Comment on above: Order Comment: Speci men Type: BLOOD SPECIMEN Ordering Facility: [facility] Address: [address] [place] [address] Performed By: #### 5 7021-8 #### [facility] CLIA [id number] [address] [place] [address] Neutrophils (Bld) [#/Vol] 4.77 10*3/uL Normal 1.45-7.50 [facility] Comment on above: Order Comment: Speci men Type: BLOOD SPECIMEN Ordering Facility: [facility] Address: [address] [place] [address] Performed By: #### 5 7021-8 #### [facility] CLIA [id number] [address] [place] [address] Neutrophils/100 WBC (Bld) 63.9 % Normal [facility] Comment on above: Order Comment: Speci men Type: BLOOD SPECIMEN Ordering Facility: [facility] Address: [address] [address] Performed By: #### 5 7021-8 #### [facility] CLIA [id number] [address] [place] [address] Nucleated RBC (Bld) [#/Vol] 10*3/uL Normal <0.01 [facility] Comment on above: Order Comment: Speci men Type: BLOOD SPECIMEN Ordering Facility: [facility] Address: [address] [address] Performed By: #### 5 7021-8 #### [facility] CLIA [id number] [address] [place] [address]1 Nucleated RBC/100 WBC (Bld) [Ratio] 0.0 /100 WBC Normal [facility] Comment on above: Order Comment: Speci men Type: BLOOD SPECIMEN Ordering Facility: [facility] Address: [address] [address] Performed By: #### 5 7021-8 #### [facility] CLIA [id number] [address] [place] [address] Platelet mean volume (Bld) [Entitic vol] 9.8 fL Normal 9.0-12.7 [facility] Comment on above: Order Comment: Speci men Type: BLOOD SPECIMEN Ordering Facility: [facility] Address: [address] [address] Performed By: #### 5 7021-8 #### [facility] CLIA [id number] [address] [place] [address] Platelets (Bld) [#/Vol] 591 10*3/uL High 150-400 [facility] Comment on above: Order Comment: Speci men Type: BLOOD SPECIMEN Ordering Facility: [facility] Address: [address] [address] Performed By: #### 5 7021-8 #### [facility] CLIA [id number] [address] [place] [address] RBC (Bld) [#/Vol] 3.57 10*6/uL Low 3.90-5.20 [facility] Comment on above: Order Comment: Speci men Type: BLOOD SPECIMEN Ordering Facility: [facility] Address: [address] [place], [place] [id number] Performed By: #### 5 7021-8 #### [facility] CLIA [id number] [address] [place] [address] 80021 WBC (Bld) [#/Vol] 7.47 10*3/uL Normal 3.70-11.00 [facility] Comment on above: Order Comment: Speci men Type: BLOOD SPECIMEN Ordering Facility: [facility] Address: [address] [place], [place] [address] Performed By: #### 5 7021-8 #### [facility] CLIA [id number] [address] [place] [address] [facility] Visit ([place]) JOSEFA CASTILLO ([id number]) 1940 F Date Time Provider Department 07/29/23 [...] Kiera Rey Ma Referring Provider: ROD ROMAN [[id number]] Allergies As of Date: 07/29/2023 Noted Allergy [...] vitamin B12 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] Order(s):BCN NURSING COMMUNICATION [[id number]] Order #: [id number]: 1 STANDING BCN NURSING COMMUNICATION [[id number]] Order #: [id number]: 1 STANDING BCN NURSING COMMUNICATION [[id number]] Order #: [id number]: 1 STANDING BCN NURSING COMMUNICATION [[id number]] Order #: [id number]: 1 STANDING BCN NURSING COMMUNICATION [[id number]] Order #: [id number]: 1 STANDING [] cyanocobalamin 1,000 mcg injectionDisp: [...] ( (more content not included)... Normal [facility] CNOVSPon 07-29-2023 CNOVSP Visit (SP) Office (HEMASA) JOSEFA CASTILLO ([id number]) 1940 F Date Time Provider Department 07/29/23 10:15 AM ROD ROMAN During your visit today, we recorded the following information about you: Temperature Pulse Respiration Blood pressure 97.3 degrees 63/minute 16/minute 175/71 Weight 57 kg Rod Roman MD 08/01/2023 3:49 PM Signed NAME: JonathanHardyJosefa CLINIC NO.: [id number] DATE OF SERVICE: July 29, 2023 (Carlos) [...] 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 She has been on various dosing through [...] month 3. Basal cell ca of right yarsanism April 2023 PLAN: Labs to include B12 in 8 weeks. Labs every 8 weeks, CBC, CMP Continue current regimen of Hydrea 500 mg daily Wednesday - Wednesday but increase to 2 tablets (1000 mg) on Saturdays and Sundays) B12 Shot today and every 8 weeks. RTC in 16 weeks HPI: Updated Visit, July 29, 2023: Right yarsanism was not a melanoma - basal cell. Labs reviewed and adjusted hydrea on weekends Otherwise is doing very well. Updated Visit, April 08, 2023: Says she's not doing well. 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 Continues B12 shots every 8 weeks [...] the left side of head over the yarsanism and into the jaw. No vision changes associated with pain. Intermittent and dull and pounding. Right yarsanism at the corner of her eye lid [...] hydrea (more content not included)... Normal [facility] Comprehensive metabolic 2000 panelon 07-29-2023 Albumin [Mass/Vol] 4.4 g/dL Normal 3.9-4.9 [facility] Comment on above: Order Comment: Speci men Type: BLOOD SPECIMEN Ordering Facility: [facility] Address: [place] [address] Performed By: #### 2 4323-8, 2532-0 #### [facility] CLIA [id number] [address] [place] [address] 31441 ALP [Catalytic activity/Vol] 60 U/L Normal 34-123 [facility] Comment on above: Order Comment: Speci men Type: BLOOD SPECIMEN Ordering Facility: [facility] Address: [address] [address] Performed By: #### 2 4322-8, 2531-0 #### [facility] CLIA [id number] [address] [place] [address] 91022 ALT [Catalytic activity/Vol] 11 U/L Normal 7-38 [facility] Comment on above: Order Comment: Speci men Type: BLOOD SPECIMEN Ordering Facility: [facility] Address: [address] [address] Performed By: #### 2 8, 2531-0 #### [facility] CLIA [id number] [address] [place] [address] 53254 Anion gap [Moles/Vol] 9 mmol/L Normal 9-18 [facility] Comment on above: Order Comment: Speci men Type: BLOOD SPECIMEN Ordering Facility: [facility] Address: [address] [address] Performed By: #### 2 8, 2531-0 #### [facility] CLIA [id number] [address] [place] [address] 26655 AST [Catalytic activity/Vol] 16 U/L Normal 13-35 [facility] Comment on above: Order Comment: Speci men Type: BLOOD SPECIMEN Ordering Facility: [facility] Address: [address] [address] Performed By: #### 2 8, 2531-0 #### [facility] CLIA [id number] [address] [place] [address] 76731 Bilirubin [Mass/Vol] 0.5 mg/dL Normal 0.2-1.3 [facility] Comment on above: Order Comment: Speci men Type: BLOOD SPECIMEN Ordering Facility: [facility] Address: [address] [address] Performed By: #### 2 8, 2531-0 #### [facility] CLIA [id number] [address] [place] [address] 89804 Calcium [Mass/Vol] 9.4 mg/dL Normal 8.5-10.2 [facility] Comment on above: Order Comment: Speci men Type: BLOOD SPECIMEN Ordering Facility: [facility] Address: [address] [place] [address] Performed By: #### 2 4323-8, 2-0 #### [facility] CLIA [id number] [address] [place] [address] 37194 Chloride [Moles/Vol] 104 mmol/L Normal 97-105 [facility] Comment on above: Order Comment: Speci men Type: BLOOD SPECIMEN Ordering Facility: [facility] Address: [address] [place] [address] Performed By: #### 2 4328, 2531-0 #### [facility] CLIA [id number] [address] [place] [address] 41731 CO2 [Moles/Vol] 27 mmol/L Normal 22-30 [facility] Comment on above: Order Comment: Speci men Type: BLOOD SPECIMEN Ordering Facility: [facility] Address: [address] [place] [address] Performed By: #### 2 4328, 2531-0 #### [facility] CLIA [id number] [address] [place] [address] 41224 Creatinine [Mass/Vol] 1.24 mg/dL High 0.58-0.96 [facility] Comment on above: Order Comment: Speci men Type: BLOOD SPECIMEN Ordering Facility: [facility] Address: [address] [place] [address] Performed By: #### 2 432-8, 2531-0 #### [facility] CLIA [id number] [address] [place] [address] 63790 Creatinine and Glomerular filtration rate.predicted panel (S/P/Bld) 43 mL/min/1.73m??? Low >=60 [facility] Comment on above: Order Comment: Speci men Type: BLOOD SPECIMEN Ordering Facility: [facility] Address: [address] [place] [address] Result Comment: Esmer mated Glomerular Filtration Rate [...] Performed By: #### 2 4323-8, 0 #### [facility] CLIA [id number] [address] [place] [address] 31516 Glucose [Mass/Vol] 114 mg/dL High 74-99 [facility] Comment on above: Order Comment: Quincy pires Type: BLOOD SPECIMEN Ordering Facility: [facility] Address: [address] [phone] Result Comment: The [place] [employer] (ADA) provides guidance for cutoff [...] Standards of Medical Care in Diabetes 2016, [place] [employer]. Diabetes Care. 2016.39(Suppl 1). Performed By: #### 2 4323-8, 0 #### [facility] CLIA [id number] [address] [place] [address] 40588 Potassium [Moles/Vol] 5.0 mmol/L Normal 3.7-5.1 [facility] Comment on above: Order Comment: Quincy pires Type: BLOOD SPECIMEN Ordering Facility: [facility] Address: [address] [phone] Performed By: #### 2 4323-8, 2-0 #### [facility] CLIA [id number] [address] [place] [address] Protein [Mass/Vol] 6.4 g/dL Normal 6.3-8.0 [facility] Comment on above: Order Comment: Speci men Type: BLOOD SPECIMEN Ordering Facility: [facility] Address: [address] [place] [address] Performed By: #### 2 4323-8, 2-0 #### [facility] CLIA [id number] [address] [place] [address] 99920 Sodium [Moles/Vol] 140 mmol/L Normal 136-144 [facility] Comment on above: Order Comment: Kikai pranay Type: BLOOD SPECIMEN Ordering Facility: [facility] Address: [address] [place] [address] Performed By: #### 2 4323-8, 2531-0 #### [facility] CLIA [id number] [address] [place] [address] 02242 Urea nitrogen [Mass/Vol] 18 mg/dL Normal 7-21 [facility] Comment on above: Order Comment: Speci men Type: BLOOD SPECIMEN Ordering Facility: [facility] Address: [address] [place] [address] Performed By: #### 2 4323-8, 2531-0 #### [facility] CLIA [id number] [address] [place] [address] 29462 [facility] LDH [Catalytic activity/Vol] 211 U/L Normal 135-214 [facility] Comment on above: Order Comment: Speci men Type: BLOOD SPECIMEN Ordering Facility: [facility] Address: [address] [place] [address] Result Comment: Hemo lysis present. The origin [...] Performed By: #### 2 4323-8, 2532-0 #### [facility] CLIA [id number] [address] [place] [address] 59430 CBC W Auto Differential pane l (Bld)on 04-08-2023 Basophils (Bld) [#/Vol] 0.05 10*3/uL Normal <0.11 [facility] Comment on above: Order Comment: Speci men Type: BLOOD SPECIMEN Ordering Facility: [facility] Address: [address] [address] Performed By: #### 5 7021-8 #### [facility] CLIA [id number] [address] [place] [address] 32679 Basophils/100 WBC (Bld) 0.7 % Normal [facility] Comment on above: Order Comment: Speci men Type: BLOOD SPECIMEN Ordering Facility: [facility] Address: [address] [address] Performed By: #### 5 7021-8 #### [facility] CLIA [id number] [address] [place] [address] 94694 Differential cell count method Nom (Bld) Auto Normal [facility] Comment on above: Order Comment: Speci men Type: BLOOD SPECIMEN Ordering Facility: [facility] Address: [address] [address] Performed By: #### 5 7021-8 #### [facility] CLIA [id number] [address] [place] [address] 94605 Eosinophils (Bld) [#/Vol] 0.10 10*3/uL Normal <0.46 [facility] Comment on above: Order Comment: Speci men Type: BLOOD SPECIMEN Ordering Facility: [facility] Address: [address] [address] Performed By: #### 5 7021-8 #### [facility] CLIA [id number] [address] [place] [address] 18331 Eosinophils/100 WBC (Bld) 1.5 % Normal [facility] Comment on above: Order Comment: Speci men Type: BLOOD SPECIMEN Ordering Facility: [facility] Address: [address] [address] Performed By: #### 5 7021-8 #### [facility] CLIA [id number] [address] [place] [address] 01595 Erythrocyte distribution width (RBC) [Ratio] 13.5 % Normal 11.5-15.0 [facility] Comment on above: Order Comment: Speci men Type: BLOOD SPECIMEN Ordering Facility: [facility] Address: [address] [address] Performed By: #### 5 7021-8 #### [facility] CLIA [id number] [address] [place] [address] 48371 Hematocrit (Bld) [Volume fraction] 40.3 % Normal 36.0-46.0 [facility] Comment on above: Order Comment: Speci men Type: BLOOD SPECIMEN Ordering Facility: [facility] Address: [address] [address] Performed By: #### 5 7021-8 #### [facility] CLIA [id number] [address] [place] [address] 64801 Hemoglobin (Bld) [Mass/Vol] 13.4 g/dL Normal 11.5-15.5 [facility] Comment on above: Order Comment: Speci men Type: BLOOD SPECIMEN Ordering Facility: [facility] Address: [address] [address] Performed By: #### 5 7021-8 #### [facility] CLIA [id number] [address] [place] [address] 76786 Immature granulocytes (Bld) [#/Vol] 10*3/uL Normal <0.10 [facility] Comment on above: Order Comment: Speci men Type: BLOOD SPECIMEN Ordering Facility: [facility] Address: [address] [address] Performed By: #### 5 7021-8 #### [facility] CLIA [id number] [address] [place] [address] Immature granulocytes/100 WBC (Bld) 0.3 % Normal [facility] Comment on above: Order Comment: Speci men Type: BLOOD SPECIMEN Ordering Facility: [facility] Address: [address] [place] [address] Performed By: #### 5 7021-8 #### [facility] CLIA [id number] [address] [place] [address] 51509 Lymphocytes (Bld) [#/Vol] 1.82 10*3/uL Normal 1.00-4.00 [facility] Comment on above: Order Comment: Speci men Type: BLOOD SPECIMEN Ordering Facility: [facility] Address: [address] [place] [address] Performed By: #### 5 7021-8 #### [facility] CLIA [id number] [address] [place] [address] 76531 Lymphocytes/100 WBC (Bld) 26.7 % Normal [facility] Comment on above: Order Comment: Speci men Type: BLOOD SPECIMEN Ordering Facility: [facility] Address: [address] [place] [address] Performed By: #### 5 7021-8 #### [facility] CLIA [id number] [address] [place] [address] 74998 MCH (RBC) [Entitic mass] 40.1 pg High 26.0-34.0 [facility] Comment on above: Order Comment: Speci men Type: BLOOD SPECIMEN Ordering Facility: [facility] Address: [address] [place] [address] Performed By: #### 5 7021-8 #### [facility] CLIA [id number] [address] [place] [address] 54241 MCHC (RBC) [Mass/Vol] 33.3 g/dL Normal 30.5-36.0 [facility] Comment on above: Order Comment: Speci men Type: BLOOD SPECIMEN Ordering Facility: [facility] Address: [address] [address] Performed By: #### 5 7021-8 #### [facility] CLIA [id number] [address] [place] [address] 67384 MCV (RBC) [Entitic vol] 120.7 fL High 80.0-100.0 [facility] Comment on above: Order Comment: Speci men Type: BLOOD SPECIMEN Ordering Facility: [facility] Address: [address] [place] [address] Performed By: #### 5 7021-8 #### [facility] CLIA [id number] [address] [place] [address] 51912 Monocytes (Bld) [#/Vol] 0.56 10*3/uL Normal <0.87 [facility] Comment on above: Order Comment: Speci men Type: BLOOD SPECIMEN Ordering Facility: [facility] Address: [address] [address] Performed By: #### 5 7021-8 #### [facility] CLIA [id number] [address] [place] [address] 56951 Monocytes/100 WBC (Bld) 8.2 % Normal [facility] Comment on above: Order Comment: Speci men Type: BLOOD SPECIMEN Ordering Facility: [facility] Address: [address] [place] [address] Performed By: #### 5 7021-8 #### [facility] CLIA [id number] [address] [place] [address] 51010 Neutrophils (Bld) [#/Vol] 4.27 10*3/uL Normal 1.45-7.50 [facility] Comment on above: Order Comment: Speci men Type: BLOOD SPECIMEN Ordering Facility: [facility] Address: [address] [place] [address] Performed By: #### 5 7021-8 #### [facility] CLIA [id number] [address] [place] [address] 20847 Neutrophils/100 WBC (Bld) 62.6 % Normal [facility] Comment on above: Order Comment: Speci men Type: BLOOD SPECIMEN Ordering Facility: [facility] Address: [address] Performed By: #### 5 7021-8 #### [facility] CLIA [id number] [address] [place] [address] 85463 Nucleated RBC (Bld) [#/Vol] 10*3/uL Normal <0.01 [facility] Comment on above: Order Comment: Speci men Type: BLOOD SPECIMEN Ordering Facility: [facility] Address: [address] Performed By: #### 5 7021-8 #### [facility] CLIA [id number] [address] [place] [address] 98428 Nucleated RBC/100 WBC (Bld) [Ratio] 0.0 /100 WBC Normal [facility] Comment on above: Order Comment: Speci men Type: BLOOD SPECIMEN Ordering Facility: [facility] Address: [address] Performed By: #### 5 7021-8 #### [facility] CLIA [id number] [address] [place] [address] 49921 Platelet mean volume (Bld) [Entitic vol] 9.9 fL Normal 9.0-12.7 [facility] Comment on above: Order Comment: Speci men Type: BLOOD SPECIMEN Ordering Facility: [facility] Address: [address] Performed By: #### 5 7021-8 #### [facility] CLIA [id number] [address] [place] [address] 16143 Platelets (Bld) [#/Vol] 580 10*3/uL High 150-400 [facility] Comment on above: Order Comment: Speci men Type: BLOOD SPECIMEN Ordering Facility: [facility] Address: [address] Performed By: #### 5 7021-8 #### [facility] CLIA [id number] [address] [place] [address] RBC (Bld) [#/Vol] 3.34 10*6/uL Low 3.90-5.20 [facility] Comment on above: Order Comment: Speci men Type: BLOOD SPECIMEN Ordering Facility: [facility] Address: [address] [place] [address] Performed By: #### 5 7021-8 #### [facility] CLIA [id number] [address] [place] [address] WBC (Bld) [#/Vol] 6.82 10*3/uL Normal 3.70-11.00 [facility] Comment on above: Order Comment: Speci men Type: BLOOD SPECIMEN Ordering Facility: [facility] Address: [address] [place] [address] Performed By: #### 5 7021-8 #### [facility] CLIA [id number] [address] [place] [address] 66371 CNNURSEon 04-08-2023 CNNURSE Nurse Visit (HEMASA) JOSEFA CASTILLO ([id number]) 1940 F Date Time Provider Department 04/08/23 10:30 AM MARTHA NURSE AYAKA DENT During your visit today, we recorded the following information about you: Janeth Bright MA 04/08/2023 11:15 AM Signed Patient Identification confirmed: yes. Injection given and documented on DEC per provider order. Janeth Bright MA Referring Provider: ROD ROMAN [[id number]] Allergies As of Date: 04/08/2023 Noted Allergy [...] vitamin B12 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] Order(s):N NURSING COMMUNICATION [[id number]] Order #: [id number]: 1 STANDING [] cyanocobalamin 1,000 mcg injectionDisp: [...] Encounter Status:Closed by JANETH BRIGHT on 04/08/23 [facility] CNOVSPon 04-08-2023 CNOVSP Visit (SP) Office (HEMASA) JOSEFA CASTILLO ([id number]) 1940 F Date Time Provider Department 04/08/23 10:15 AM ROD ROMAN During your visit today, we recorded the following information about you: Temperature Pulse Respiration Blood pressure 97.8 degrees 77/minute 16/minute 161/74 Weight Height 56.7 kg 1.575 m Rod Roman MD 04/11/2023 2:03 PM Signed NAME: Josefa Castillo CLINIC NO.: [id number] DATE OF SERVICE: April 08, 2023 (Carlos) [...] 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 Continues B12 shots every 8 weeks [...] the left side of head over the yarsanism and into the jaw. No vision changes associated with pain. Intermittent and dull and pounding. Right yarsanism at the corner of her eye lid [...] U (more content not included)... Normal [facility] Comprehensive metabolic 2000 panelon 04-08-2023 Albumin [Mass/Vol] 4.4 g/dL Normal 3.9-4.9 [facility] Comment on above: Order Comment: Speci men Type: BLOOD SPECIMEN Ordering Facility: [facility] Address: [address] [address] Performed By: #### 2 4323, 0 #### [facility] CLIA [id number] [address] [place] [address] 93027 ALP [Catalytic activity/Vol] 60 U/L Normal 34-123 [facility] Comment on above: Order Comment: Speci men Type: BLOOD SPECIMEN Ordering Facility: [facility] Address: [address] [address] Performed By: #### 2 4328, 0 #### [facility] CLIA [id number] [address] [place] [address] 96799 ALT [Catalytic activity/Vol] 14 U/L Normal 7-38 [facility] Comment on above: Order Comment: Speci men Type: BLOOD SPECIMEN Ordering Facility: [facility] Address: [address] [address] Performed By: #### 2 43238, 0 #### [facility] CLIA [id number] [address] [place] [address] 79602 Anion gap [Moles/Vol] 9 mmol/L Normal 9-18 [facility] Comment on above: Order Comment: Speci men Type: BLOOD SPECIMEN Ordering Facility: [facility] Address: [address] Performed By: #### 2 4328, 2531-0 #### [facility] CLIA [id number] [address] [place] [address] 89611 AST [Catalytic activity/Vol] 21 U/L Normal 13-35 [facility] Comment on above: Order Comment: Speci men Type: BLOOD SPECIMEN Ordering Facility: [facility] Address: [address] Performed By: #### 2 4328, 2531-0 #### [facility] CLIA [id number] [address] [place] [address] 76910 Bilirubin [Mass/Vol] 0.5 mg/dL Normal 0.2-1.3 [facility] Comment on above: Order Comment: Speci men Type: BLOOD SPECIMEN Ordering Facility: [facility] Address: [address] Performed By: #### 2 4328, 2531-0 #### [facility] CLIA [id number] [address] [place] [address] 24782 Calcium [Mass/Vol] 9.5 mg/dL Normal 8.5-10.2 [facility] Comment on above: Order Comment: Speci men Type: BLOOD SPECIMEN Ordering Facility: [facility] Address: [address] Performed By: #### 2 4328, 2531-0 #### [facility] CLIA [id number] [address] [place] [address] 47840 Chloride [Moles/Vol] 102 mmol/L Normal 97-105 [facility] Comment on above: Order Comment: Speci men Type: BLOOD SPECIMEN Ordering Facility: [facility] Address: [address] Performed By: #### 2 4328, 2532-0 #### [facility] CLIA [id number] [address] [place] [address] CO2 [Moles/Vol] 27 mmol/L Normal 22-30 [facility] Comment on above: Order Comment: Speci men Type: BLOOD SPECIMEN Ordering Facility: [facility] Address: [address] [place] [address] Performed By: #### 2 4323-8, 253-0 #### [facility] CLIA [id number] [address] [place] [address] 61760 Creatinine [Mass/Vol] 0.88 mg/dL Normal 0.58-0.96 [facility] Comment on above: Order Comment: Speci men Type: BLOOD SPECIMEN Ordering Facility: [facility] Address: [address] [place] [address] Performed By: #### 2 4323-8, 2531-0 #### [facility] CLIA [id number] [address] [place] [address] 79292 ESTIMATED GLOMERULAR FILTRATION RATE 66 mL/min/1.73m??? Normal >=60 [facility] Comment on above: Order Comment: Speci men Type: BLOOD SPECIMEN Ordering Facility: [facility] Address: [address] [place] [address] Result Comment: Esmer mated Glomerular Filtration Rate [...] Performed By: #### 2 4323-8, 2531-0 #### [facility] CLIA [id number] [address] [place] [address] 28649 Glucose [Mass/Vol] 106 mg/dL High 74-99 [facility] Comment on above: Order Comment: Speci men Type: BLOOD SPECIMEN Ordering Facility: [facility] Address: [address] [place] [address] Result Comment: The [place] [employer] (ADA) provides guidance for cutoff [...] Standards of Medical Care in Diabetes 2016, [place] [employer]. Diabetes Care. 2016.39(Suppl 1). Performed By: #### 2 4323-8, 2531-0 #### [facility] CLIA [id number] [address] [place] [address]3279 Potassium [Moles/Vol] 4.3 mmol/L Normal 3.7-5.1 [facility] Comment on above: Order Comment: Speci men Type: BLOOD SPECIMEN Ordering Facility: [facility] Address: [address] [phone] Performed By: #### 2 432-8, 0 #### [facility] CLIA [id number] [address] [place] [address] 48623 Protein [Mass/Vol] 6.7 g/dL Normal 6.3-8.0 [facility] Comment on above: Order Comment: Speci men Type: BLOOD SPECIMEN Ordering Facility: [facility] Address: [address] [place] [address] Performed By: #### 2 43238, 2531-0 #### [facility] CLIA [id number] [address] [place] [address] 82041 Sodium [Moles/Vol] 138 mmol/L Normal 136-144 [facility] Comment on above: Order Comment: Speci men Type: BLOOD SPECIMEN Ordering Facility: [facility] Address: [address] [phone] Performed By: #### 2 4323-8, 2531-0 #### [facility] CLIA [id number] [address] [place] [address] Urea nitrogen [Mass/Vol] 10 mg/dL Normal 7-21 [facility] Comment on above: Order Comment: Speci men Type: BLOOD SPECIMEN Ordering Facility: [facility] Address: [address] [place] [address] Performed By: #### 2 4323-8, 2531-0 #### [facility] CLIA [id number] [address] [place] [address]359 LDH SerPl-cCncon 04-08-2023 LDH [Catalytic activity/Vol] 215 U/L High 135-214 [facility] Comment on above: Order Comment: Speci men Type: BLOOD SPECIMEN Ordering Facility: [facility] Address: [address] [place] [address] Result Comment: Hemo lysis present. The origin [...] Performed By: #### 2 4323-8, 2531-0 #### [facility] CLIA [id number] [address] [place] [address]407 Telemedicineon 02-19-2023 Telemedicine [id number] Chloe Castillo 1940 F Date Provider Department Center 02/19/[address] [facility] Family History Problem Relation Age of Onset Breast cancer Mother Diabetes Mother Diabetes Father Family Status - Relation Status Age at Mother Father Level of Service:50234 [place] PHYS/QHP TELEPHONE EVALUATION 11-20 MIN Reason for Visit and Comments: Coronary Artery Disease [187] Hypertension [512155] Telehealth Phone Visit [872] Normal [facility] CBC AUTO DIFFon 01-25-2023 BASO # 0.1 103/ul Normal 0.0-0.1 [facility] Comment on above: Performed By: #### C BC #### [facility] [address] [address] [address] Dianna Alcocer Basophils/100 WBC (Bld) 0.6 % Normal 0.2-2.0 [facility] Comment on above: Performed By: #### C BC #### [facility] [address] [address] [address] Dianna Alcocer EO # 0.1 103/ul Normal 0.0-0.7 [facility] Comment on above: Performed By: #### C BC #### [facility] [address] [address] [address] Dianna Alcocer Eosinophils/100 WBC (Bld) 0.7 % Critically low 0.9-7.0 [facility] Comment on above: Performed By: #### C BC #### [facility] [address] [place] [address] Dr. Dianna Alcocer Erythrocyte distribution width (RBC) [Ratio] 13.4 % Normal 11.0-15.0 [facility] Comment on above: Performed By: #### C BC #### [facility] [address] [place] [address] Dr. Dianna Alcocer Hematocrit (Bld) [Volume fraction] 38.9 % Normal 36.0-48.0 [facility] Comment on above: Performed By: #### C BC #### [facility] [address] [place] [address] Dr. Dianna Alcocer Hemoglobin (Bld) [Mass/Vol] 13.2 g/dL Normal 12.0-16.0 [facility] Comment on above: Performed By: #### C BC #### [facility] [address] [place] [address] Dr. Dianna Alcocer IG # 0.03 10e3/ul Normal 0.00-0.03 [facility] Comment on above: Performed By: #### C BC #### [facility] [address] [place] [address] Dr. Dianna Alcocer IG % 0.4 % Normal 0.0-0.5 [facility] Comment on above: Performed By: #### C BC #### [facility] [address] [address] [address] Dianna Alcocer LYMPH # 1.4 103/ul Normal 1.2-3.8 [facility] Comment on above: Performed By: #### C BC #### [facility] [address] [place] [address] Dr. Dianna Alcocer Lymphocytes/100 WBC (Bld) 17.0 % Critically low 20.5-60.0 [facility] Comment on above: Performed By: #### C BC #### [facility] [address] [place] [address] Dr. Dianna Alcocer MANUAL DIFF REQ NO Normal [facility] Comment on above: Performed By: #### C BC #### [facility] [address] [place] [address] Dr. Dianna Alcocer MCH (RBC) [Entitic mass] 39.6 pg Critically high 26.7-34.0 [facility] Comment on above: Performed By: #### C BC #### [facility] [address] [place] [address] Dr. Dianna Alcocer MCHC (RBC) [Mass/Vol] 33.9 g/dL Normal 29.9-35.2 [facility] Comment on above: Performed By: #### C BC #### [facility] [address] [place] [address] Dr. Dianna Alcocer MCV (RBC) [Entitic vol] 116.8 fL Critically high 81.0-99.0 [facility] Comment on above: Performed By: #### C BC #### [facility] [address] [place] [address] Dr. Dianna Alcocer MONO # 0.6 103/ul Normal 0.3-0.8 [facility] Comment on above: Performed By: #### C BC #### [facility] [address] [place] [address] Dr. Dianna Alcocer Monocytes/100 WBC (Bld) 7.5 % Normal 1.7-12.0 [facility] Comment on above: Performed By: #### C BC #### [facility] [address] [address] [address] Dianna Alcocer NEUT # 5.9 103/ul Normal 1.4-6.5 [facility] Comment on above: Performed By: #### C BC #### [facility] [address] [address] [address] Dianna Alcocer Neutrophils/100 WBC (Bld) 73.8 % Normal 43.0-75.0 [facility] Comment on above: Performed By: #### C BC #### [facility] [address] [address] [address] Dianna Alcocer Platelet mean volume (Bld) [Entitic vol] 9.9 fL Normal 9.5-13.5 [facility] Comment on above: Performed By: #### C BC #### [facility] [address] [place] [address] Dr. Dianna Alcocer PLT 576 103/ul Critically high 150-450 [facility] Comment on above: Performed By: #### C BC #### [facility] [address] [place] [address] Dr. Dianna Alcocer RBC 3.33 106/ul Critically low 4.20-5.40 [facility] Comment on above: Performed By: #### C BC #### [facility] [address] [place] [address] Dr. Dianna Alcocer WBC 8.0 103/ul Normal 4.0-11.0 [facility] Comment on above: Performed By: #### C BC #### [facility] [address] [place] [address] Dr. Dianna Alcocer LIPID PROFILEon 01-25-2023 CHOL-HDL RATIO NORM SEE BELOW Normal [facility] Comment on above: Result Comment: 3.3 - 4.4 LOW RISK 4.4 - 7.1 AVERAGE RISK 7.1 - 11.0 MODERATE RISK >11.0 HIGH RISK Performed By: #### C MADM, BNP, CMP #### [facility] [address] [address] [address] Dianna Alcocer Cholesterol [Mass/Vol] 123 mg/dL Normal <=200 [facility] Comment on above: Performed By: #### C MADM, BNP, CMP #### [facility] [address] [address] [address] Dianna Alcocer Cholesterol in HDL [Mass/Vol] 60 mg/dL Normal 40-60 [facility] Comment on above: Performed By: #### C MADM, BNP, CMP #### [facility] [address] [address] [address] Dianna Alcocer Cholesterol in LDL [Mass/Vol] 50.4 mg/dL Normal [facility] Comment on above: Performed By: #### C MADM, BNP, CMP #### [facility] [address] [place] [address] Dr. Dianna Alcocer Cholesterol.total/C holesterol in HDL [Mass ratio] 2.1 {ratio} Normal [facility] Comment on above: Performed By: #### C MADM, BNP, CMP #### [facility] [address] [address] [address] Dianna Alcocer HDL NORMAL > or = 60 mg/dl - LO W CARDIOVASCULAR RISK <40 mg/dl - HIGH CARDIOVASCULAR RISK Normal [facility] Comment on above: Performed By: #### C MADM, BNP, CMP #### [facility] [address] [place] [address] Dr. Dianna Alcocer LDL CALC NORMAL SEE BELOW Normal [facility] Comment on above: Result Comment: <100 mg/dl OPTIMAL 100 - 129 mg/dl NEAR OR ABOVE OPTIMAL 130 - 159 mg/dl BORDERLINE HIGH 160 - 189 mg/dl HIGH >190 mg/dl VERY HIGH Performed By: #### C MADM, BNP, CMP #### [facility] [address] [address] [address] Dianna Alcocer Triglyceride [Mass/Vol] 63 mg/dL Normal <=150 [facility] Comment on above: Performed By: #### C MADM, BNP, CMP #### [facility] [address] [address] [address] Dianna Alcocer VLDL CALC 12.6 mg/dL Normal [facility] Comment on above: Performed By: #### C MADM, BNP, CMP #### [facility] [address] [place] [address] Dr. Dianna Alcocer LIVER PROFILEon 01-25-2023 Albumin [Mass/Vol] 4.0 g/dL Normal 3.4-5.0 [facility] Comment on above: Performed By: #### C MADM, BNP, CMP #### [facility] [address] [place] [address] Dr. Dianna Alcocer Albumin/Globulin [Mass ratio] 1.4 {ratio} Normal [facility] Comment on above: Performed By: #### C MADM, BNP, CMP #### [facility] [address] [place] [address] Dr. Dianna Alcocer ALP [Catalytic activity/Vol] 74 U/L Normal 46-116 [facility] Comment on above: Performed By: #### C MADM, BNP, CMP #### [facility] [address] [place] [address] Dr. Dianna Alcocer ALT [Catalytic activity/Vol] 21 U/L Normal 14-59 [facility] Comment on above: Performed By: #### C MADM, BNP, CMP #### [facility] [address] [place] [address] Dr. Dianna Alcocer AST [Catalytic activity/Vol] 18 U/L Normal 15-37 [facility] Comment on above: Performed By: #### C MADM, BNP, CMP #### [facility] [address] [place] [address] Dr. Dianna Alcocer BILI, CONJUGATED 0.1 mg/dL Normal 0.0-0.2 [facility] Comment on above: Performed By: #### C MADM, BNP, CMP #### [facility] [address] [place] [address] Dr. Dianna Alcocer Bilirubin [Mass/Vol] 0.5 mg/dL Normal 0.2-1.0 [facility] Comment on above: Performed By: #### C MADM, BNP, CMP #### [facility] [address] [place] [address] Dr. Dianna Alcocer Globulin (S) [Mass/Vol] 2.9 g/dL Normal [facility] Comment on above: Performed By: #### C MADM, BNP, CMP #### [facility] [address] [address] [address] Dianna Alcocer Protein [Mass/Vol] 6.9 g/dL Normal 6.4-8.2 [facility] Comment on above: Performed By: #### C MADM, BNP, CMP #### [facility] [address] [address] [address] Dianna Alcocer PROF CHEM 8 (BAS METB)on Anion gap [Moles/Vol] 14.7 mmol/L Normal [facility] Comment on above: Performed By: #### C MADM, BNP, CMP #### [facility] [address] [place] [address] Dr. Dianna Alcocer Calcium [Mass/Vol] 8.9 mg/dL Normal 8.5-10.1 [facility] Comment on above: Performed By: #### C MADM, BNP, CMP #### [facility] [address] [place] [address] Dr. Dianna Alcocer Chloride [Moles/Vol] 103 mmol/L Normal 98-107 [facility] Comment on above: Performed By: #### C MADM, BNP, CMP #### [facility] [address] [place] [address] Dr. Dianna Alcocer CO2 [Moles/Vol] 28.6 mmol/L Normal 21.0-32.0 [facility] Comment on above: Performed By: #### C MADM, BNP, CMP #### [facility] [address] [place] [address] Dr. Dianna Alcocer Creatinine [Mass/Vol] 0.88 mg/dL Normal 0.55-1.02 [facility] Comment on above: Performed By: #### C MADM, BNP, CMP #### [facility] [address] [place] [address] Dr. Dianna Alcocer EGFR-AF SURINAMESE >60 Normal >=60 [facility] Comment on above: Performed By: #### C MADM, BNP, CMP #### [facility] [address] [place] [address] Dr. Dianna Alcocer EGFR-NON AF SURINAMESE >60 Normal >=60 [facility] Comment on above: Performed By: #### C MADM, BNP, CMP #### [facility] [address] [address] [address] Dianna Alcocer Glucose [Mass/Vol] 110 mg/dL Critically high 74-106 [facility] Comment on above: Performed By: #### C MADM, BNP, CMP #### [facility] [address] [place] [address] Dr. Dianna Alcocer Potassium [Moles/Vol] 4.3 mmol/L Normal 3.5-5.1 [facility] Comment on above: Performed By: #### C MADM, BNP, CMP #### [facility] [address] [place] [address] Dr. Dianna Alcocer Sodium [Moles/Vol] 142 mmol/L Normal 136-145 [facility] Comment on above: Performed By: #### C MADM, BNP, CMP #### [facility] [address] [place] [address] Dr. Dianna Alcocer Urea nitrogen [Mass/Vol] 11.0 mg/dL Normal 7.0-18.0 [facility] Comment on above: Performed By: #### C MADM, BNP, CMP #### [facility] [address] [place] [address] Dr. Dianna Alcocer Urea nitrogen/Creatinine [Mass ratio] 12.5 mg/mg Normal [facility] Comment on above: Performed By: #### C MADM, BNP, CMP #### [facility] [address] [place] [address] Dr. Dianna SHIon 08-24-2022 Natriuretic peptide B (Bld) [Mass/Vol] 469.0 pg/mL Normal <=1,800.0 [facility] Comment on above: Performed By: #### C MADM, BNP, CMP #### [facility] [address] [place] [address] Dr. Dianna Alcocer CARDIAC KEMAR ADMITon 022 CK [Catalytic activity/Vol] 145 U/L Normal 26-192 [facility] Comment on above: Performed By: #### C MADM, BNP, CMP #### [facility] [address] [address] [address] Dianna Alcocer CK.MB [Mass/Vol] 3.17 ng/mL Normal <=3.60 [facility] Comment on above: Performed By: #### C MADM, BNP, CMP #### [facility] [address] [address] [address] Dianna Alcocer HSTROP 8.4 pg/mL Normal 4.0-51.3 [facility] Comment on above: Result Comment: CUT- OFF POINTS HAVE BEEN ESTABLISHED BASED ON THE FOURTH UNIVERSAL DEFINITIONS OF MYOCARDIAL INFARCTION. THE UPPER REFERENCE LIMIT (URL) OF TROPONIN, DEFINED THE 99TH PERCENTILE OF cTnI DISTRIBUTION IN A REFERENCE POPULATION, HAS BEEN CONFIRMED THE DECISION THRESHOLD FOR [place] DIAGNOSIS. Performed By: #### C MADM, BNP, CMP #### [facility] [address] [address] [address] Dianna Alcocer BOB 155 ng/mL Critically high 9-82 [facility] Comment on above: Performed By: #### C MADM, BNP, CMP #### [facility] [address] [address] [address] Dianna Alcocer CBC AUTO DIFFon 08-24-2022 BASO # 0.1 103/ul Normal 0.0-0.1 [facility] Comment on above: Performed By: #### C BC #### [facility] [address] [address] [address] Dianna Alcocer Basophils/100 WBC (Bld) 1.6 % Normal 0.2-2.0 [facility] Comment on above: Performed By: #### C BC #### [facility] [address] [address] [address] Dianna Alcocer EO # 0.1 103/ul Normal 0.0-0.7 [facility] Comment on above: Performed By: #### C BC #### [facility] [address] [place] [address] Dr. Dianna Alcocer Eosinophils/100 WBC (Bld) 1.6 % Normal 0.9-7.0 [facility] Comment on above: Performed By: #### C BC #### [facility] [address] [place] [address] Dr. Dianna Alcocer Erythrocyte distribution width (RBC) [Ratio] 13.1 % Normal 11.0-15.0 [facility] Comment on above: Performed By: #### C BC #### [facility] [address] [place] [address] Dr. Dianna Alcocer Hematocrit (Bld) [Volume fraction] 38.6 % Normal 36.0-48.0 [facility] Comment on above: Performed By: #### C BC #### [facility] [address] [place] [address] Dr. Dianna Alcocer Hemoglobin (Bld) [Mass/Vol] 13.2 g/dL Normal 12.0-16.0 [facility] Comment on above: Performed By: #### C BC #### [facility] [address] [place] [address] Dr. Dianna Alcocer IG # 0.01 10e3/ul Normal 0.00-0.03 [facility] Comment on above: Performed By: #### C BC #### [facility] [address] [place] [address] Dr. Dianna Alcocer IG % 0.2 % Normal 0.0-0.5 [facility] Comment on above: Performed By: #### C BC #### [facility] [address] [place] [address] Dr. Dianna Alcocer LYMPH # 1.7 103/ul Normal 1.2-3.8 [facility] Comment on above: Performed By: #### C BC #### [facility] [address] [place] [address] Dr. Dianna Alcocer Lymphocytes/100 WBC (Bld) 39.3 % Normal 20.5-60.0 [facility] Comment on above: Performed By: #### C BC #### [facility] [address] [place] [address] Dr. Dianna Alcocer MANUAL DIFF REQ NO Normal [facility] Comment on above: Performed By: #### C BC #### [facility] [address] [place] [address] Dr. Dianna Alcocer MCH (RBC) [Entitic mass] 41.4 pg Critically high 26.7-34.0 [facility] Comment on above: Performed By: #### C BC #### [facility] [address] [place] [address] Dr. Dianna Alcocer MCHC (RBC) [Mass/Vol] 34.2 g/dL Normal 29.9-35.2 [facility] Comment on above: Performed By: #### C BC #### [facility] [address] [place] [address] Dr. Dianna Alcocer MCV (RBC) [Entitic vol] 121.0 fL Critically high 81.0-99.0 [facility] Comment on above: Performed By: #### C BC #### [facility] [address] [place] [address] Dr. Dianna Alcocer MONO # 0.5 103/ul Normal 0.3-0.8 [facility] Comment on above: Performed By: #### C BC #### [facility] [address] [place] [address] Dr. Dianna Alcocer Monocytes/100 WBC (Bld) 12.0 % Normal 1.7-12.0 [facility] Comment on above: Performed By: #### C BC #### [facility] [address] [place] [address] Dr. Dianna Alcocer NEUT # 2.0 103/ul Normal 1.4-6.5 [facility] Comment on above: Performed By: #### C BC #### [facility] [address] [place] [address] Dr. Dianna Alcocer Neutrophils/100 WBC (Bld) 45.3 % Normal 43.0-75.0 [facility] Comment on above: Performed By: #### C BC #### [facility] [address] [place] [address] Dr. Dianna Alcocer Platelet mean volume (Bld) [Entitic vol] 10.0 fL Normal 9.5-13.5 [facility] Comment on above: Performed By: #### C BC #### [facility] [address] [place] [address] Dr. Dianna Alcocer PLT 228 103/ul Normal 150-450 [facility] Comment on above: Performed By: #### C BC #### [facility] [address] [address] [address] Dianna Alcocer RBC 3.19 106/ul Critically low 4.20-5.40 [facility] Comment on above: Performed By: #### C BC #### [facility] [address] [place] [address] Dr. Dianna Alcocer WBC 4.3 103/ul Normal 4.0-11.0 [facility] Comment on above: Performed By: #### C BC #### [facility] [address] [place] [address] Dr. Dianna Alcocer CULTURE URINEon 08-24-2022 CULTURE URINE Culture Observations : LIGHT GROWTH OF MIXED GENITAL SATHYA. NO POTENTIAL PATHOGENS SEEN. Normal [facility] Comment on above: Performed By: #### C MADM, BNP, CMP #### [facility] [address] [place] [address] Dr. Dianna Alcocer DRUG SCREEN RAPID (URINE)on 08-24-2022 AMP Negative Normal NEGATIVE [facility] Comment on above: Performed By: #### D EDEN CARRASQUILLO, ERUR #### [facility] [address] [place] [address] Dr. Dianna Alcocer BAR Negative Normal NEGATIVE [facility] Comment on above: Performed By: #### D EDEN CARRASQUILLO ERUR #### [facility] [address] [place] [address] Dr. Dianna Alcocer BUP Negative Normal NEGATIVE [facility] Comment on above: Performed By: #### D EDEN CARRASQUILLO, ERUR #### [facility] [address] [place] [address] Dr. Dianna Alcocer BZO Negative Normal NEGATIVE [facility] Comment on above: Performed By: #### D EDEN CARRASQUILLO, ERUR #### [facility] [address] [place] [address] Dr. Dianna Alcocer HASMUKH Negative Normal NEGATIVE [facility] Comment on above: Performed By: #### D EDEN CARRASQUILLO, ERUR #### [facility] [address] [address] [address] Dianna Alcocer CUT-OFFS SEE BELOW Normal [facility] Comment on above: Result Comment: AMP [...] By: #### D EDEN CARRASQUILLO, ERUR #### [facility] [address] [place] [address] Dr. Dianna Alcocer DRUG CUT HEADER DRUG CLASS TEST SYST EM CUT-OFF CONCENTRATIONS ARE FOLLOWS: Normal [facility] Comment on above: Performed By: #### D EDEN CARRASQUILLO, ERUR #### [facility] [address] [place] [address] Dr. Dianna Alcocer mAMP Negative Normal NEGATIVE [facility] Comment on above: Performed By: #### D EDEN CARRASQUILLO, ERUR #### [facility] [address] [place] [address] Dr. Dianna Alcocer MTD Negative Normal NEGATIVE [facility] Comment on above: Performed By: #### D EDEN CARRASQUILLO, ERUR #### [facility] [address] [place] [address] Dr. Dianna Alcocer OPI Positive Abnormal NEGATIVE [facility] [facility] Comment [facility] above: Performed By: #### D JUNAID CARRASQUILLORO, ERUR #### [facility] [address] [address] [address] Dianna Alcocer OXY Negative Normal NEGATIVE [facility] Comment on above: Performed By: #### D LISSY CARRASQUILLOICRO, ERUR #### [facility] [address] [address] [address] Dianna Alcocer PCP Negative Normal NEGATIVE [facility] Comment on above: Performed By: #### D LISSY CARRASQUILLOICRO, ERUR #### [facility] [address] [address] [address] Dianna Alcocer PPX Negative Normal NEGATIVE [facility] Comment on above: Performed By: #### D JUNAID CARRASQUILLORO, ERUR #### [facility] [address] [place] [address] Dr. Dianna Alcocer TCA Negative Normal NEGATIVE [facility] Comment on above: Performed By: #### D JUNAID CARRASQUILLORO, ERUR #### [facility] [address] [address] [address] Dianna Alcocer THC Negative Normal NEGATIVE [facility] Comment on above: Performed By: #### D JUNAID CARRASQUILLORO, ERUR #### [facility] [address] [address] [address] Dianna Alcocer ER URINE PROFILEon 2 Bilirubin Ql (U) Negative Normal NEGATIVE [facility] Comment on above: Performed By: #### D LISSY CARRASQUILLOICRO, ERUR #### [facility] [address] [address] [address] Dianna Alcocer Clarity (U) CLEAR Normal CLEAR [facility] Comment on above: Performed By: #### D LISSY CARRASQUILLOICRO, ERUR #### [facility] [address] [address] [address] Dianna Alcocer Color (U) LT. YELLOW Normal YELLOW [facility] Comment on above: Performed By: #### D EDEN CARRASQUILLO, ERUR #### [facility] [address] [address] [address] Dianna EDMONDSON A micrscopic examination will be performed if indicated. Normal [facility] Comment on above: Performed By: #### D EDEN CARRASQUILLO, ERUR #### [facility] [address] [address] [address] Dianna Alcocer Glucose Ql (U) Negative Normal NEGATIVE [facility] Comment on above: Performed By: #### D EDEN CARRASQUILLO, ERUR #### [facility] [address] [address] [address] Dianna Alcocer Hemoglobin Ql (U) MODERATE Abnormal NEGATIVE [facility] Comment on above: Performed By: #### D EDEN CARRASQUILLO, ERUR #### [facility] [address] [address] [address] Dianna Alcocer Ketones Ql (U) Negative Normal NEGATIVE [facility] Comment on above: Performed By: #### D EDEN CARRASQUILLO, ERUR #### [facility] [address] [address] [address] Dianna Alcocer LEUKOCYTES SMALL Abnormal NEGATIVE [facility] Comment on above: Performed By: #### D EDEN CARRASQUILLO, ERUR #### [facility] [address] [address] [address] Dianna Alcocer Nitrite Ql (U) Negative Normal NEGATIVE [facility] Comment on above: Performed By: #### D EDEN CARRASQUILLO, ERUR #### [facility] [address] [address] [address] Dianna Alcocer pH (U) 6.0 [pH] Normal 5-9 [facility] Comment on above: Performed By: #### D EDEN CARRASQUILLO, ERUR #### [facility] [address] [address] [address] Dinana Alcocer SPEC GRAVITY 1.020 Normal 1.005-<=1.025 [facility] Comment on above: Performed By: #### D EDEN CARRASQUILLO, ERUR #### [facility] [address] [place] [address] Dr. Dianna Alcocer UA PROTEIN Negative Normal NEGATIVE/ TRACE [facility] Comment on above: Performed By: #### D EDEN CARRASQUILLO, ERUR #### [facility] [address] [place] [address] Dr. Dianna Alcocer UR MICRO IND INDICATED Normal [facility] Comment on above: Performed By: #### D EDEN CARRASQUILLO, ERUR #### [facility] [address] [place] [address] Dr. Dianna Alcocer Urobilinogen Qn (U) 0.2 {Simone'U}/dL Normal 0.2 - 1. 0 [facility] Comment on above: Performed By: #### D EDEN CARRASQUILLO, ERUR #### [facility] [address] [place] [address] Dr. Dianna Alcocer PROF 14(COMP METB)on 022 Albumin [Mass/Vol] 4.0 g/dL Normal 3.4-5.0 [facility] Comment on above: Performed By: #### C MADM, BNP, CMP #### [facility] [address] [place] [address] Dr. Dianna Alcocer Albumin/Globulin [Mass ratio] 1.4 {ratio} Normal [facility] Comment on above: Performed By: #### C MADM, BNP, CMP #### [facility] [address] [place] [address] Dr. Dianna Alcocer ALP [Catalytic activity/Vol] 57 U/L Normal 46-116 [facility] Comment on above: Performed By: #### C MADM, BNP, CMP #### [facility] [address] [place] [address] Dr. Dianna Alcocer ALT [Catalytic activity/Vol] 15 U/L Normal 14-59 [facility] Comment on above: Performed By: #### C MADM, BNP, CMP #### [facility] [address] [place] [address] Dr. Dianna Alcocer Anion gap [Moles/Vol] 11.3 mmol/L Normal [facility] Comment on above: Performed By: #### C MADM, BNP, CMP #### [facility] [address] [address] [address] Dianna Alcocer AST [Catalytic activity/Vol] 16 U/L Normal 15-37 [facility] Comment on above: Performed By: #### C MADM, BNP, CMP #### [facility] [address] [address] [address] Dianna Alcocer Bilirubin [Mass/Vol] 0.6 mg/dL Normal 0.2-1.0 [facility] Comment on above: Performed By: #### C MADM, BNP, CMP #### [facility] [address] [place] [address] Dr. Dianna Alcocer Calcium [Mass/Vol] 8.6 mg/dL Normal 8.5-10.1 [facility] Comment on above: Performed By: #### C MADM, BNP, CMP #### [facility] [address] [address] [address] Dianna Alcocer Chloride [Moles/Vol] 100 mmol/L Normal 98-107 [facility] Comment on above: Performed By: #### C MADM, BNP, CMP #### [facility] [address] [place] [address] Dr. Dianna Alcocer CO2 [Moles/Vol] 28.4 mmol/L Normal 21.0-32.0 [facility] Comment on above: Performed By: #### C MADM, BNP, CMP #### [facility] [address] [place] [address] Dr. Dianna Alcocer Creatinine [Mass/Vol] 0.97 mg/dL Normal 0.55-1.02 [facility] Comment on above: Performed By: #### C MADM, BNP, CMP #### [facility] [address] [address] [address] Dianna Alcocer EGFR-AF SURINAMESE >60 Normal >=60 [facility] Comment on above: Performed By: #### C MADM, BNP, CMP #### [facility] [address] [address] [address] Dianna Alcocer EGFR-NON AF SURINAMESE 55 mL/min/1.73m2 Critically low >=60 [facility] Comment on above: Performed By: #### C MADM, BNP, CMP #### [facility] [address] [address] [address] Dianna Alcocer Globulin (S) [Mass/Vol] 2.9 g/dL Normal [facility] Comment on above: Performed By: #### C MADM, BNP, CMP #### [facility] [address] [address] [address] Dianna Alcocer Glucose [Mass/Vol] 86 mg/dL Normal 74-106 [facility] Comment on above: Performed By: #### C MADM, BNP, CMP #### [facility] [address] [address] [address] Dianna Alcocer Potassium [Moles/Vol] 3.7 mmol/L Normal 3.5-5.1 [facility] Comment on above: Performed By: #### C MADM, BNP, CMP #### [facility] [address] [address] [address] Dianna Alcocer Protein [Mass/Vol] 6.9 g/dL Normal 6.4-8.2 [facility] Comment on above: Performed By: #### C MADM, BNP, CMP #### [facility] [address] [address] [address] Dianna Alcocer Sodium [Moles/Vol] 136 mmol/L Normal 136-145 [facility] Comment on above: Performed By: #### C MADM, BNP, CMP #### [facility] [address] [address] [address] Dianna Alcocer Urea nitrogen [Mass/Vol] 9.0 mg/dL Normal 7.0-18.0 [facility] Comment on above: Performed By: #### C MADM, BNP, CMP #### [facility] [address] [address] [address] Dianna Alcocer Urea nitrogen/Creatinine [Mass ratio] 9.3 mg/mg Normal [facility] Comment on above: Performed By: #### C MADM, BNP, CMP #### [facility] [address] [address] [address] Dianna Alcocer URINE MICROSCOPIC ONLYon BACTERIA NONE SEEN Normal NONE SEEN [facility] Comment on above: Performed By: #### D JUNAID CARRASQUILLORO, ERUR #### [facility] [address] [address] [address] Dianna Alcocer Bacteria identified Cx Nom (U) INDICATED Normal [facility] Comment on above: Performed By: #### D EDEN CARRASQUILLO, ERUR #### [facility] [address] [place] [address] Dr. Dianna Alcocer CAST NONE SEEN Normal NONE SEEN [facility] Comment on above: Performed By: #### D EDEN CARRASQUILLO, ERUR #### [facility] [address] [place] [address] Dr. Dianna Alcocer Crystals LM Nom (Urine sed) NONE SEEN Normal NONE SEEN [facility] Comment on above: Performed By: #### D EDEN CARRASQUILLO, ERUR #### [facility] [address] [place] [address] Dr. Dianna Alcocer Epithelial cells LM Ql (Urine sed) FEW Abnormal NONE SEEN /RARE [facility] Comment on above: Performed By: #### D EDEN CARRASQUILLO, ERUR #### [facility] [address] [place] [address] Dr. Dianna Alcocer MUCOUS TRACE Abnormal NONE SEEN [facility] Comment on above: Performed By: #### D EDEN CARRASQUILLO, ERUR #### [facility] [address] [address] [address] Dianna Alcocer RBC 2-5 Abnormal 0-2 [facility] Comment on above: Performed By: #### D EDEN CARRASQUILLO, ERUR #### [facility] [address] [address] [address] Dianna Alcocer WBC 2-5 Abnormal NONE SEEN [facility] Comment on above: Performed By: #### D RUGRPD, UMICRO, ERUR #### [facility] [address] [address] [address] Dianna Alcocer VIT B12 AND FOLATEon 022 Cobalamin (Vitamin B12) [Mass/Vol] 703.0 pg/mL Normal 193.0-986.0 [facility] Comment on above: Performed By: #### C MADM, BNP, CMP #### [facility] [address] [address] [address] Dianna Alcocer FOLATE 12.90 ng/mL Normal 8.60-58.90 [facility] Comment on above: Performed By: #### C RAMANDEEPM, BNP, CMP #### [facility] [address] [address] [address] Dianna Alcocer XR CHEST 1 Von [...] LUZ GRIDER Date: 2022-08-24 10:01 Normal [facility] CBC AUTO DIFFon 08-23-2022 BASO # 0.1 103/ul Normal 0.0-0.1 [facility] Comment on above: Performed By: #### C MADM, BNP, CMP #### [facility] [address] [address] [address] Dianna Alcocer Basophils/100 WBC (Bld) 1.2 % Normal 0.2-2.0 [facility] Comment on above: Performed By: #### C MADM, BNP, CMP #### [facility] [address] [address] [address] Dianna Alcocer EO # 0.1 103/ul Normal 0.0-0.7 [facility] Comment on above: Performed By: #### C MADM, BNP, CMP #### [facility] [address] [place] [address] Dr. Dianna Alcocer Eosinophils/100 WBC (Bld) 1.9 % Normal 0.9-7.0 [facility] Comment on above: Performed By: #### C MADM, BNP, CMP #### [facility] [address] [place] [address] Dr. Dianna Alcocer Erythrocyte distribution width (RBC) [Ratio] 12.9 % Normal 11.0-15.0 [facility] Comment on above: Performed By: #### C MADM, BNP, CMP #### [facility] [address] [place] [address] Dr. Dianna Alcocer Hematocrit (Bld) [Volume fraction] 40.4 % Normal 36.0-48.0 [facility] Comment on above: Performed By: #### C MADM, BNP, CMP #### [facility] [address] [place] [address] Dr. Dianna Alcocer Hemoglobin (Bld) [Mass/Vol] 13.9 g/dL Normal 12.0-16.0 [facility] Comment on above: Performed By: #### C MADM, BNP, CMP #### [facility] [address] [place] [address] Dr. Dianna Alcocer IG # 0.01 10e3/ul Normal 0.00-0.03 [facility] Comment on above: Performed By: #### C MADM, BNP, CMP #### [facility] [address] [place] [address] Dr. Dianna Alcocer IG % 0.2 % Normal 0.0-0.5 [facility] Comment on above: Performed By: #### C MADM, BNP, CMP #### [facility] [address] [place] [address] Dr. Dianna Alcocer LYMPH # 1.7 103/ul Normal 1.2-3.8 [facility] Comment on above: Performed By: #### C MADM, BNP, CMP #### [facility] [address] [address] [address] Dianna Alcocer Lymphocytes/100 WBC (Bld) 39.3 % Normal 20.5-60.0 [facility] Comment on above: Performed By: #### C MADM, BNP, CMP #### [facility] [address] [place] [address] Dr. Dianna Alcocer MANUAL DIFF REQ NO Normal [facility] Comment on above: Performed By: #### C MADM, BNP, CMP #### [facility] [address] [place] [address] Dr. Dianna Alcocer MCH (RBC) [Entitic mass] 41.0 pg Critically high 26.7-34.0 [facility] Comment on above: Performed By: #### C MADM, BNP, CMP #### [facility] [address] [place] [address] Dr. Dianna Alcocer MCHC (RBC) [Mass/Vol] 34.4 g/dL Normal 29.9-35.2 [facility] Comment on above: Performed By: #### C MADM, BNP, CMP #### [facility] [address] [place] [address] Dr. Dianna Alcocer MCV (RBC) [Entitic vol] 119.2 fL Critically high 81.0-99.0 [facility] Comment on above: Result Comment: 2+ m acrocytosis Performed By: #### C MADM, BNP, CMP #### [facility] [address] [place] [address] Dr. Dianna Alcocer MONO # 0.6 103/ul Normal 0.3-0.8 [facility] Comment on above: Performed By: #### C MADM, BNP, CMP #### [facility] [address] [place] [address] Dr. Dianna Alcocer Monocytes/100 WBC (Bld) 13.1 % Critically high 1.7-12.0 [facility] Comment on above: Performed By: #### C MADM, BNP, CMP #### [facility] [address] [place] [address] Dr. Dianna Alcocer NEUT # 1.9 103/ul Normal 1.4-6.5 [facility] Comment on above: Performed By: #### C MADM, BNP, CMP #### [facility] [address] [address] [address] Dianna Alcocer Neutrophils/100 WBC (Bld) 44.3 % Normal 43.0-75.0 [facility] Comment on above: Performed By: #### C MADM, BNP, CMP #### [facility] [address] [address] [address] Dianna Alcocer Platelet mean volume (Bld) [Entitic vol] 9.9 fL Normal 9.5-13.5 [facility] Comment on above: Performed By: #### C MADM, BNP, CMP #### [facility] [address] [address] [address] Dianna Alcocer PLT 274 103/ul Normal 150-450 [facility] Comment on above: Performed By: #### C MADM, BNP, CMP #### [facility] [address] [address] [address] Dianna Alcocer RBC 3.39 106/ul Critically low 4.20-5.40 [facility] Comment on above: Performed By: #### C MADM, BNP, CMP #### [facility] [address] [place] [address] Dr. Dianna Alcocer WBC 4.3 103/ul Normal 4.0-11.0 [facility] Comment on above: Performed By: #### C MADM, BNP, CMP #### [facility] [address] [place] [address] HEAD WO CONon [...] COLLIN COLEMAN Date: 2022-08-23 11:05 Normal [facility] CULTURE URINEon 08-23-2022 CULTURE URINE Culture Observations : No growth Normal [facility] Comment on above: Performed By: #### C MADM, BNP, CMP #### [facility] [address] [place] [address] Dr. Dianna Alcocer ER URINE PROFILEon 2 Bilirubin Ql (U) Negative Normal NEGATIVE [facility] Comment on above: Performed By: #### C MADM, BNP, CMP #### [facility] [address] [place] [address] Dr. Dianna Alcocer Clarity (U) SL CLOUDY Abnormal CLEAR [facility] Comment on above: Performed By: #### C RAMANDEEPM BNP, CMP #### [facility] [address] [place] [address] Dr. Dianna Alcocer Color (U) LT. YELLOW Normal YELLOW [facility] Comment on above: Performed By: #### C MADM, BNP, CMP #### [facility] [address] [place] [address] Dr. Dianna Alcocer ERUAHD A micrscopic examination will be performed if indicated. Normal [facility] Comment on above: Performed By: #### C MADM, BNP, CMP #### [facility] [address] [place] [address] Dr. Dianna Alcocer Glucose Ql (U) Negative Normal NEGATIVE [facility] Comment on above: Performed By: #### C MADM, BNP, CMP #### [facility] [address] [place] [address] Dr. Dianna Alcocer Hemoglobin Ql (U) LARGE Abnormal NEGATIVE [facility] Comment on above: Performed By: #### C MADM, BNP, CMP #### [facility] [address] [address] [address] Dianna Alcocer Ketones Ql (U) Negative Normal NEGATIVE [facility] Comment on above: Performed By: #### C MADM, BNP, CMP #### [facility] [address] [place] [address] Dr. Dianna Alcocer LEUKOCYTES SMALL Abnormal NEGATIVE [facility] Comment on above: Performed By: #### C MADM, BNP, CMP #### [facility] [address] [address] [address] Dianna Alcocer Nitrite Ql (U) Negative Normal NEGATIVE [facility] Comment on above: Performed By: #### C MADM, BNP, CMP #### [facility] [address] [place] [address] Dr. Dianna Alcocer pH (U) 6.0 [pH] Normal 5-9 [facility] Comment on above: Performed By: #### C MADM, BNP, CMP #### [facility] [address] [place] [address] Dr. Dianna Alcocer SPEC GRAVITY 1.020 Normal 1.005-<=1.025 [facility] Comment on above: Performed By: #### C MADM, BNP, CMP #### [facility] [address] [place] [address] Dr. Dianna Alcocer UA PROTEIN Negative Normal NEGATIVE/ TRACE [facility] Comment on above: Performed By: #### C MADM, BNP, CMP #### [facility] [address] [place] [address] Dr. Dianna Alcocer UR MICRO IND INDICATED Normal [facility] Comment on above: Performed By: #### C MADM, BNP, CMP #### [facility] [address] [place] [address] Dr. Dianna Alcocer Urobilinogen Qn (U) 0.2 {Simoen'U}/dL Normal 0.2 - 1. 0 [facility] Comment on above: Performed By: #### C MADM, BNP, CMP #### [facility] [address] [address] [address] Dianna Alcocer PROF 14(COMP METB)on 022 Albumin [Mass/Vol] 4.2 g/dL Normal 3.4-5.0 [facility] Comment on above: Performed By: #### H HAVEN, CMP #### [facility] [address] [address] [address] Dianna Alcocer Albumin/Globulin [Mass ratio] 1.4 {ratio} Normal [facility] Comment on above: Performed By: #### H HAVEN, CMP #### [facility] [address] [address] [address] Dianna Alcocer ALP [Catalytic activity/Vol] 65 U/L Normal 46-116 [facility] Comment on above: Performed By: #### H HAVEN, CMP #### [facility] [address] [place] [address] Dr. Dianna Alcocer ALT [Catalytic activity/Vol] 16 U/L Normal 14-59 [facility] Comment on above: Performed By: #### H HAVEN, CMP #### [facility] [address] [address] [address] Dianna Alcocer Anion gap [Moles/Vol] 10.6 mmol/L Normal [facility] Comment on above: Performed By: #### H HAVEN, CMP #### [facility] [address] [address] [address] Dianna Alcocer AST [Catalytic activity/Vol] 20 U/L Normal 15-37 [facility] Comment on above: Performed By: #### H STROPN, CMP #### [facility] [address] [address] [address] Dianna Alcocer Bilirubin [Mass/Vol] 0.7 mg/dL Normal 0.2-1.0 [facility] Comment on above: Performed By: #### H STROPN, CMP #### [facility] [address] [address] [address] Dianna Alcocer Calcium [Mass/Vol] 8.9 mg/dL Normal 8.5-10.1 [facility] Comment on above: Performed By: #### H STROPN, CMP #### [facility] [address] [address] [address] Dianna Alcocer Chloride [Moles/Vol] 101 mmol/L Normal 98-107 [facility] Comment on above: Performed By: #### H STROPN, CMP #### [facility] [address] [address] [address] Dianna Alcocer CO2 [Moles/Vol] 27.4 mmol/L Normal 21.0-32.0 [facility] Comment on above: Performed By: #### H STROPN, CMP #### [facility] [address] [address] [address] Dianna Alcocer Creatinine [Mass/Vol] 1.03 mg/dL Critically high 0.55-1.02 [facility] Comment on above: Performed By: #### H STROPN, CMP #### [facility] [address] [address] [address] Dianna Alcocer EGFR-AF SURINAMESE >60 Normal >=60 [facility] Comment on above: Performed By: #### H STROPN, CMP #### [facility] [address] [address] [address] Dianna Alcocer EGFR-NON AF SURINAMESE 51 mL/min/1.73m2 Critically low >=60 [facility] Comment on above: Performed By: #### H STROPN, CMP #### [facility] [address] [address] [address] Dianna Alcocer Globulin (S) [Mass/Vol] 3.1 g/dL Normal [facility] Comment on above: Performed By: #### H STROPN, CMP #### [facility] [address] [address] [address] Dianna Alcocer Glucose [Mass/Vol] 99 mg/dL Normal 74-106 [facility] Comment on above: Performed By: #### H STROPN, CMP #### [facility] [address] [address] [address] Dianna Alcocer Potassium [Moles/Vol] 4.0 mmol/L Normal 3.5-5.1 [facility] Comment on above: Performed By: #### H STROPN, CMP #### [facility] [address] [address] [address] Dianna Alcocer Protein [Mass/Vol] 7.3 g/dL Normal 6.4-8.2 [facility] Comment on above: Performed By: #### H STROPN, CMP #### [facility] [address] [address] [address] Dianna Alcocer Sodium [Moles/Vol] 135 mmol/L Critically low 136-145 [facility] Comment on above: Performed By: #### H STROPN, CMP #### [facility] [address] [address] [address] Dianna Alcocer Urea nitrogen [Mass/Vol] 8.0 mg/dL Normal 7.0-18.0 [facility] Comment on above: Performed By: #### H STROPN, CMP #### [facility] [address] [place] [address] Dr. Dianna Alcocer Urea nitrogen/Creatinine [Mass ratio] 7.8 mg/mg Normal [facility] Comment on above: Performed By: #### H STROPN, CMP #### [facility] [address] [place] [address] Dr. Dianna Alcocer TROPONIN, HIGH SENSITIVITYon 08-23-2022 HSTROP 8.5 pg/mL Normal 4.0-51.3 [facility] Comment on above: Result Comment: CUT- OFF POINTS HAVE BEEN ESTABLISHED BASED ON THE FOURTH UNIVERSAL DEFINITIONS OF MYOCARDIAL INFARCTION. THE UPPER REFERENCE LIMIT (URL) OF TROPONIN, DEFINED THE 99TH PERCENTILE OF cTnI DISTRIBUTION IN A REFERENCE POPULATION, HAS BEEN CONFIRMED THE DECISION THRESHOLD FOR [place] DIAGNOSIS. Performed By: #### H STROPN, CMP #### [facility] [address] [place] [address] Dr. Dianna Alcocer URINE MICROSCOPIC ONLYon BACTERIA SMALL Abnormal NONE SEEN [facility] Comment on above: Performed By: #### C MADM, BNP, CMP #### [facility] [address] [place] [address] Dr. Dianna Alcocer Bacteria identified Cx Nom (U) INDICATED Normal [facility] Comment on above: Performed By: #### C MADM, BNP, CMP #### [facility] [address] [address] [address] Dianna Alcocer CAST NONE SEEN Normal NONE SEEN [facility] Comment on above: Performed By: #### C MADM, BNP, CMP #### [facility] [address] [address] [address] Dianna Alcocer Crystals LM Nom (Urine sed) NONE SEEN Normal NONE SEEN [facility] Comment on above: Performed By: #### C MADM, BNP, CMP #### [facility] [address] [address] [address] Dianna Alcocer Epithelial cells LM Ql (Urine sed) FEW Abnormal NONE SEEN /RARE [facility] Comment on above: Performed By: #### C MADM, BNP, CMP #### [facility] [address] [place] [address] Dr. Dianna Alcocer MUCOUS NONE SEEN Normal NONE SEEN [facility] Comment on above: Performed By: #### C MADM, BNP, CMP #### [facility] [address] [place] [address] Dr. Dianna Alcocer RBC 0-2 Normal 0-2 [facility] Comment on above: Performed By: #### C MADM, BNP, CMP #### [facility] [address] [place] [address] Dr. Dianna Alcocer WBC 2-5 Abnormal NONE SEEN [facility] Comment on above: Performed By: #### C MADM, BNP, CMP #### [facility] [address] [place] [address] Dr. Dianna Alcocer XR CHEST 1 Von [...] by: SOTERO GOMEZ Date: 2022-08-23 10:29 Normal [facility] CULTURE URINEon 07-30-2022 CULTURE URINE Isolate [...] Trimethoprim/Sulfameth oxazole <=20 S F Normal [facility] Comment on above: Performed By: #### C MADM, BNP, CMP #### [facility] [address] [place] [address] ABD/PELV W CONon [...] LUZ GRIDER Date: 2022-05-08 10:36 Normal [facility] PROF CHEM 8 (BAS METB)on Anion gap [Moles/Vol] 8.4 mmol/L Normal [facility] Comment on above: Performed By: #### C MADM, BNP, CMP #### [facility] [address] [place] [address] Dr. Dianna Alcocer Calcium [Mass/Vol] 8.9 mg/dL Normal 8.5-10.1 [facility] Comment on above: Performed By: #### C MADM, BNP, CMP #### [facility] [address] [address] [address] Dianna Alcocer Chloride [Moles/Vol] 103 mmol/L Normal 98-107 [facility] Comment on above: Performed By: #### C MADM, BNP, CMP #### [facility] [address] [address] [address] Dianna Alcocer CO2 [Moles/Vol] 28.7 mmol/L Normal 21.0-32.0 [facility] Comment on above: Performed By: #### C MADM, BNP, CMP #### [facility] [address] [address] [address] Dianna Alcocer Creatinine [Mass/Vol] 0.95 mg/dL Normal 0.55-1.02 [facility] Comment on above: Performed By: #### C MADM, BNP, CMP #### [facility] [address] [address] [address] Dianna Alcocer EGFR-AF SURINAMESE >60 Normal >=60 [facility] Comment on above: Performed By: #### C MADM, BNP, CMP #### [facility] [address] [address] [address] Dianna Alcocer EGFR-NON AF SURINAMESE 56 mL/min/1.73m2 Critically low >=60 [facility] Comment on above: Performed By: #### C MADM, BNP, CMP #### [facility] [address] [place] [address] Dr. Dianna Alcocer Glucose [Mass/Vol] 91 mg/dL Normal 74-106 [facility] Comment on above: Performed By: #### C MADM, BNP, CMP #### [facility] [address] [address] [address] Dianna Alcocer Potassium [Moles/Vol] 5.1 mmol/L Normal 3.5-5.1 [facility] Comment on above: Performed By: #### C MADM, BNP, CMP #### [facility] [address] [place] [address] Dr. Dianna Alcocer Sodium [Moles/Vol] 135 mmol/L Critically low 136-145 [facility] Comment on above: Performed By: #### C MADM, BNP, CMP #### [facility] [address] [address] [address] Dianna Alcocer Urea nitrogen [Mass/Vol] 13.0 mg/dL Normal 7.0-18.0 [facility] Comment on above: Performed By: #### C MADM, BNP, CMP #### [facility] [address] [place] [address] Dr. Dianna Alcocer Urea nitrogen/Creatinine [Mass ratio] 13.7 mg/mg Normal [facility] Comment on above: Performed By: #### C MADM, BNP, CMP #### [facility] [address] [place] [address] Dr. Dianna Alcocer MG MAMM DIAGNOSTIC 3D KIRT CA Don 02-09-2022 MG MAMM DIAGNOSTIC 3D KIRT CAD Patient: JOSEFA [place] Exam Date: 02/09/2022 : 1940 Gender:F Ordering : DR TITO HILLMAN . Admission #: [id number] Family : Order #: [id number] CLICK HERE TO VIEW EXAM RADIOLOGY REPORT [...] prostate cancer at age 70. LOCATION: [facility] BREAST COMPOSITION: Almost entirely fatty. FINDINGS: [...] M.D. on 02/09/2022 at 08:27 Normal [facility] Vital Signs Date Time Vital Sign Value Performing Clinician Windy khan 12-01-2023 13:06-0500 Body height 157.5 cm Jr. Stepanic DO Work Phone: [facility] 12-01-2023 13:06-0500 Body mass index (BMI) [Ratio] 19.94 kg/m2 Jr. Stepanic DO Work Phone: [facility] 12-01-2023 13:06-0500 Body weight 49.44 kg Jr. Stepanic DO Work Phone: [facility] 07-29-2023 10:04-0400 Body temperature 97.3 [degF] Rod Roman MD Work Phone: [facility] 07-29-2023 10:04-0400 Body weight 56.97 kg Rod Roman MD Work Phone: [facility] 07-29-2023 10:04-0400 Diastolic blood pressure 71 mm[Hg] Rod Roman MD Work Phone: [facility] 07-29-2023 10:04-0400 Heart rate 63 /min Rod Roman MD Work Phone: [facility] 07-29-2023 10:04-0400 Respiratory rate 16 /min Rod Roman MD Work Phone: [facility] 07-29-2023 10:04-0400 SaO2% (BldA) [Mass fraction] 97 % Rod Roman MD Work Phone: [facility] 07-29-2023 10:04-0400 Systolic blood pressure 175 mm[Hg] Rod Roman MD Work Phone: [facility] 04-08-2023 10:14-0400 Body height 157.5 cm Rod Roman MD Work Phone: [facility] 04-08-2023 10:14-0400 Body temperature 97.81 [degF] Rod Roman MD Work Phone: [facility] 04-08-2023 10:14-0400 Body weight 56.7 kg Rod Roman MD Work Phone: [facility] 04-08-2023 10:14-0400 Diastolic blood pressure 74 mm[Hg] Rod Roman MD Work Phone: [facility] 04-08-2023 10:14-0400 Heart rate 77 /min Rod Roman MD Work Phone: [facility] 04-08-2023 10:14-0400 Respiratory rate 16 /min Rod Roman MD Work Phone: [facility] 04-08-2023 10:14-0400 SaO2% (BldA) [Mass fraction] 99 % Rod Roman MD Work Phone: [facility] 04-08-2023 10:14-0400 Systolic blood pressure 161 mm[Hg] Rod Roman MD Work Phone: [facility] 12-17-2022 10:29-0500 Body height 157.5 cm Rod Roman MD Work Phone: [facility] 12-17-2022 10:29-0500 Body temperature 97.5 [degF] Rod Roman MD Work Phone: [facility] 12-17-2022 10:29-0500 Body weight 55.97 kg Rod Roman MD Work Phone: [facility] 12-17-2022 10:29-0500 Diastolic blood pressure 81 mm[Hg] Rod Roman MD Work Phone: [facility] 12-17-2022 10:29-0500 Heart rate 66 /min Rod Roman MD Work Phone: [facility] 12-17-2022 10:29-0500 Respiratory rate 16 /min Rod Roman MD Work Phone: [facility] 12-17-2022 10:29-0500 SaO2% (BldA) [Mass fraction] 97 % Rod Roman MD Work Phone: [facility] 12-17-2022 10:29-0500 Systolic blood pressure 159 mm[Hg] Rod Roman MD Work Phone: [facility] 07-30-2022 09:55-0400 Body height 157.5 cm Rod Roman MD Work Phone: [facility] 07-30-2022 09:55-0400 Body temperature 97.59 [degF] Rod Roman MD Work Phone: [facility] 07-30-2022 09:55-0400 Body weight 58.06 kg Rod Roman MD Work Phone: [facility] 07-30-2022 09:55-0400 Diastolic blood pressure 71 mm[Hg] Rod Roman MD Work Phone: [facility] 07-30-2022 09:55-0400 Heart rate 70 /min Rdo Roman MD Work Phone: [facility] 07-30-2022 09:55-0400 Respiratory rate 16 /min Rod Roman MD Work Phone: [facility] 07-30-2022 09:55-0400 SaO2% (BldA) [Mass fraction] 98 % Rod Roman MD Work Phone: [facility] 07-30-2022 09:55-0400 Systolic blood pressure 153 mm[Hg] Rod Roman MD Work Phone: [facility] 04-30-2022 11:26-0400 Body temperature 97.11 [degF] Ma Sand Work Phone: [facility] 04-30-2022 11:26-0400 Diastolic blood pressure 56 mm[Hg] Ma Sand Work Phone: [facility] 04-30-2022 11:26-0400 Heart rate 68 /min Ma Sand Work Phone: [facility] 04-30-2022 11:26-0400 Respiratory rate 16 /min Ma Sand Work Phone: [facility] 04-30-2022 11:26-0400 SaO2% (BldA) [Mass fraction] 98 % Ma Sand Work Phone: [facility] 04-30-2022 11:26-0400 Systolic blood pressure 113 mm[Hg] Ma Sand Work Phone: [facility] 04-02-2022 11:24-0400 Body height 158.1 cm Ma Sand Work Phone: [facility] 04-02-2022 11:24-0400 Body temperature 97.9 [degF] Ma Sand Work Phone: [facility] 04-02-2022 11:24-0400 Body weight 58.51 kg Ma Sand Work Phone: [facility] 04-02-2022 11:24-0400 Diastolic blood pressure 52 mm[Hg] Ma Sand Work Phone: [facility] 04-02-2022 11:24-0400 Heart rate 66 /min Ma Sand Work Phone: [facility] 04-02-2022 11:24-0400 Respiratory rate 16 /min Ma Sand Work Phone: [facility] 04-02-2022 11:24-0400 SaO2% (BldA) [Mass fraction] 97 % Ma Sand Work Phone: [facility] 04-02-2022 11:24-0400 Systolic blood pressure 119 mm[Hg] Ma Sand Work Phone: [facility] 03-05-2022 10:58-0400 Body height 158.1 cm Rod Roman MD Work Phone: [facility] 03-05-2022 10:58-0400 Body temperature 97.81 [degF] Rod Roman MD Work Phone: [facility] 03-05-2022 10:58-0400 Body weight 58.79 kg Rod Roman MD Work Phone: [facility] 03-05-2022 10:58-0400 Diastolic blood pressure 87 mm[Hg] Rod Roman MD Work Phone: [facility] 03-05-2022 10:58-0400 Heart rate 64 /min Rod Roman MD Work Phone: [facility] 03-05-2022 10:58-0400 Respiratory rate 16 /min Rod Roman MD Work Phone: [facility] 03-05-2022 10:58-0400 SaO2% (BldA) [Mass fraction] 98 % Rod Roman MD Work Phone: [facility] 03-05-2022 10:58-0400 Systolic blood pressure 178 mm[Hg] Rod Roman MD Work Phone: [facility] Encounters Encounter Date Encounter Type Care Provider Facility Start: 04-04-2024 Telephone encounter Rod bird MD Work Phone: Hematology/Oncology Comment on above: Lab Orders Start: 02-21-2024 End: 02-21-[address] [facility] Start: 01-24-2024 End: 01-24-2024 ambulatory TITO HILLMAN Not Available Start: 01-05-2024 End: 01-05-[address] [facility] Start: 12-15-2023 End: 12-22-2023 Evaluation and management of inpatient [facility] Start: 12-01-2023 End: 12-02-2023 ambulatory KAYLAN HERRERA Not Available Start: 12-01-2023 End: 12-01-2023 Office outpatient visit 25 minutes Jr. 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); Essential thrombocythemia (HCC) Start: 07-29-2023 End: 07-29-2023 ambulatory TITO HILLMAN Facility:[facility] Start: 04-08-2023 End: 04-08-2023 Nursing evaluation [...] Start: 04-08-2023 End: 04-08-2023 ambulatory TITO HILLMAN Facility:[facility] Start: 02-19-2023 ambulatory [facility] Start: 02-19-2023 Encounter for preprocedural cardiovascular examination [facility] Start: 01-25-2023 End: 01-26-[address] TITO [...] Start: 02-09-2022 End: 02-10-[address] TITO HLILMAN Facility: Start: 10-31-2018 End: 11-12-2018 Patient encounter procedure DESTINEE Morris BERRY Facility:[facility] Plan of Treatment Date Care Activity Detail Author Start: 07-29-2026 Diabetes Screening Diabetes Screenin g [facility] Start: 04-08-2026 DIABETES SCREEN DIABETES SCREEN [facility] Start: 12-17-2025 DIABETES SCREEN DIABETES SCREEN [facility] Start: 07-30-2025 DIABETES SCREEN DIABETES SCREEN [facility] Start: 04-30-2025 DIABETES SCREEN DIABETES SCREEN [facility] Start: 04-02-2025 DIABETES SCREEN DIABETES SCREEN [facility] Start: 03-05-2025 DIABETES SCREEN DIABETES SCREEN [facility] Start: 07-02-2024 Influenza vaccination Influenz a Vaccine (Season Ended) [facility] Start: 04-17-2024 End: 04-04-2025 CBC W Auto Differential panel - Blood COMPLETE BLOOD COUNT AND DIFFERENTIAL Lab Routine 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 Expected: 04/17/2024 (Approximate), Expires: 04/04/2025 [facility] Comment on above: Expected: 04/17/2024 (Approximate), Expires: 04/04/2025 Start: 04-17-2024 End: 04-04-2025 Comprehensive metabolic 2000 panel - Serum or Plasma COMPREHENSIVE METABOLIC PANEL Lab Routine 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 Expected: 04/17/2024 (Approximate), Expires: 04/04/2025 [facility] Comment on above: Expected: 04/17/2024 (Approximate), Expires: 04/04/2025 Start: 04-17-2024 End: 04-04-2025 Lactate dehydrogenase [Enzymatic activity/volume] in Serum or Plasma LACTATE DEHYDROGENASE Lab Routine 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 Expected: 04/17/2024 (Approximate), Expires: 04/04/2025 [facility] Work Phone: Comment on above: Expected: 04/17/2024 (Approximate), Expires: 04/04/2025 Start: 04-17-2024 End: 04-17-2024 Follow-up encounter 04/17/2024 11:15 AM EDT Visit (SP) Office Hematology/Oncology [address] [place] [address] Rod Roman MD [address] [place] [address] follow up Hematology/Oncology Comment on above: follow up Start: 04-17-2024 End: 04-17-2024 Patient encounter procedure 04/17/2024 11:00 AM EDT Office Visit [facility] [address] [place] [address] lab [facility] Comment on above: lab Start: 01-24-2024 End: 01-24-2024 Patient encounter procedure 01/24/2024 10:15 AM EDT Office [facility] [address] [place] [address] Tito Hillman MD [address] [place] [phone] [facility] Start: 11-18-2023 End: 07-29-2024 CBC W Auto Differential panel - Blood CBC + DIFF Lab Routine 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 (HCC) Expected: 11/18/2023 (Approximate), Expires: 07/29/2024 [facility] Work Phone: Comment on above: Expected: 11/18/2023 (Approximate), Expires: 07/29/2024 Start: 11-18-2023 End: 07-29-2024 Cobalamin (Vitamin B12) [Mass/volume] in Serum or Plasma VITAMIN B12 BLOOD Lab Routine 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 (HCC) Expected: 11/18/2023 (Approximate), Expires: 07/29/2024 [facility] Work Phone: Comment on above: Expected: 11/18/2023 (Approximate), Expires: 07/29/2024 Start: 11-18-2023 End: 07-29-2024 Comprehensive metabolic 2000 panel - Serum or Plasma COMP METABOLIC PANEL Lab Routine 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 (HCC) Expected: 11/18/2023 (Approximate), Expires: 07/29/2024 [facility] Work Phone: Comment on above: Expected: 11/18/2023 (Approximate), Expires: 07/29/2024 Start: 11-18-2023 End: 07-29-2024 Ferritin [Mass/volume] in Serum or Plasma FERRITIN BLD Lab Routine 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 (HCC) Expected: 11/18/2023 (Approximate), Expires: 07/29/2024 [facility] Work Phone: Comment on above: Expected: 11/18/2023 (Approximate), Expires: 07/29/2024 Start: 11-18-2023 End: 07-29-2024 Folate [Mass/volume] in Serum or Plasma FOLATE SERUM Lab Routine 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 (HCC) Expected: 11/18/2023 (Approximate), Expires: 07/29/2024 [facility] Work Phone: Comment on above: Expected: 11/18/2023 (Approximate), Expires: 07/29/2024 Start: 11-18-2023 End: 07-29-2024 Iron and Iron binding capacity panel - Serum or Plasma IRON + TIBC Lab Routine 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 (HCC) Expected: 11/18/2023 (Approximate), Expires: 07/29/2024 [facility] Work Phone: Comment on above: Expected: 11/18/2023 (Approximate), Expires: 07/29/2024 Start: 11-01-2023 Advance Directive Discussion Advance Directive Discussion [facility] Start: 11-01-2023 Behavioral Health Screening Behavioral Health Screening [facility] Start: 09-23-2023 End: 07-29-2024 CBC W Auto Differential panel - Blood CBC + DIFF Lab Routine 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 (HCC) Expected: 09/23/2023 (Approximate), Expires: 07/29/2024 [facility] Work Phone: Comment on above: Expected: 09/23/2023 (Approximate), Expires: 07/29/2024 Start: 09-23-2023 End: 07-29-2024 Cobalamin (Vitamin B12) [Mass/volume] in Serum or Plasma VITAMIN B12 BLOOD Lab Routine 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 (HCC) Expected: 09/23/2023 (Approximate), Expires: 07/29/2024 [facility] Work Phone: Comment on above: Expected: 09/23/2023 (Approximate), Expires: 07/29/2024 Start: 09-23-2023 End: 07-29-2024 Comprehensive metabolic 2000 panel - Serum or Plasma COMP METABOLIC PANEL Lab Routine 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 (HCC) Expected: 09/23/2023 (Approximate), Expires: 07/29/2024 [facility] Work Phone: Comment on above: Expected: 09/23/2023 (Approximate), Expires: 07/29/2024 Start: 09-23-2023 End: 07-29-2024 Ferritin [Mass/volume] in Serum or Plasma FERRITIN BLD Lab Routine 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 (HCC) Expected: 09/23/2023 (Approximate), Expires: 07/29/2024 [facility] Work Phone: Comment on above: Expected: 09/23/2023 (Approximate), Expires: 07/29/2024 Start: 09-23-2023 End: 07-29-2024 Folate [Mass/volume] in Serum or Plasma FOLATE SERUM Lab Routine 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 (HCC) Expected: 09/23/2023 (Approximate), Expires: 07/29/2024 [facility] Work Phone: Comment on above: Expected: 09/23/2023 (Approximate), Expires: 07/29/2024 Start: 09-23-2023 End: 07-29-2024 Iron and Iron binding capacity panel - Serum or Plasma IRON + TIBC Lab Routine 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 (HCC) Expected: 09/23/2023 (Approximate), Expires: 07/29/2024 [facility] Work Phone: Comment on above: Expected: 09/23/2023 (Approximate), Expires: 07/29/2024 Start: 07-02-2023 Covid-19 Vaccine () Covid-19 Vaccine () [facility] Start: 07-02-2023 Influenza vaccination Influenza Vacc ine (#1) [facility] Start: 12-19-2022 Covid-19 Vaccine (6 - Pfizer series) Covid-19 Vaccine (6 - Pfizer series) [facility] Start: 11-01-2022 ADVANCE DIRECTIVE DISCUSSION ADVANCE DIRECTIVE DISCUSSION [facility] Start: 11-01-2022 DEPRESSION ASSESSMENT DEPRESSION ASS ESSMENT [facility] Start: 07-18-2022 COVID-19 VACCINE (5 - Booster for Pfizer series) COVID-19 VACCINE (5 - Booster for Pfizer series) [facility] Start: 07-02-2022 Influenza vaccination INFLUENZA (#1) [facility] Start: 05-28-2022 End: 07-28-2022 VITAMIN B12 BLOOD VITAMIN B12 BLOOD Lab Routine 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 Osteopenia of multiple sites Expected: 05/28/2022 (Approximate), Expires: 07/28/2022 [facility] Work Phone: Comment on above: Expected: 05/28/2022 (Approximate), Expires: 07/28/2022 Start: 12-28-2021 COVID-19 VACCINE (4 - Booster for Pfizer series) COVID-19 VACCINE (4 - Booster for Pfizer series) [facility] Start: 11-01-2021 ADVANCE DIRECTIVE DISCUSSION ADVANCE DIRECTIVE DISCUSSION [facility] Start: 11-01-2021 DEPRESSION ASSESSMENT DEPRESSION ASS ESSMENT [facility] Start: 2005 BONE DENSITY BONE DENSITY [facility] Start: 2005 Bone Density Screening Bone Density Screening [facility] Start: 2005 Screening for osteoporosis Bone Density Screening [facility] Start: 2000 RSV Vaccine (1 - 1-d ose 60+ series) RSV Vaccine (1 - 1-dose 60+ series) [facility] Start: 1990 SHINGRIX VACCINE (1 of 2) SHINGRIX VACCINE (1 of 2) [facility] Start: 1959 Urine microalbumin profile [facility] Start: 1940 Medicare Annual Wellness (AWV) Medicare Annual Wellness (AWV) [facility] XR Hip - left 3 Views XR hip lef t 2 or 3 views Imaging Routine Left hip pain 12/01/2023 1:10 PM EST [facility] Work Phone: [facility] Immunizations Immunization Date Immunization Notes Care Provider [facility] 08-18-2022 influenza, high-dose , quadrivalent vaccine (FLUZONE HIGH DOSE QUADRIVALENT) Rod Roman MD Work Phone: [facility] 08-18-2022 influenza virus vacc ine, unspecified formulation Rod Roman MD Work Phone: [facility] 08-06-2021 influenza, high-dose , quadrivalent vaccine (FLUZONE HIGH DOSE QUADRIVALENT) Rod Roman MD Work Phone: [facility] 12-31-2020 COVID-19 vaccine, ag e 12+ yr (PFIZER-BIONTECH - PURPLE TOP) Rod Roman MD Work Phone: [facility] 11-30-2020 COVID-19 vaccine, ag e 12+ yr (PFIZER-BIONTECH - PURPLE TOP) Rod Roman MD Work Phone: [facility] 08-19-2020 influenza, high-dose , quadrivalent vaccine (FLUZONE HIGH DOSE QUADRIVALENT) Rod Roman MD Work Phone: [facility] 09-09-2019 influenza, high dose seasonal, preservative-free Rod Roman MD Work Phone: [facility] 07-12-2018 influenza, high dose seasonal, preservative-free Rod Roman MD Work Phone: [facility] 09-25-2017 influenza, high dose seasonal, preservative-free Rod Roman MD Work Phone: [facility] 08-12-2016 influenza, injectabl e, quadrivalent, preservative free Rod Roman MD Work Phone: [facility] 08-12-2016 pneumococcal polysaccharide vaccine, 23 valent Rod Roman MD Work Phone: [facility] 07-11-2016 influenza, high dose seasonal, preservative-free Rod Roman MD Work Phone: [facility] 06-15-2015 influenza, high dose seasonal, preservative-free Rod Roman MD Work Phone: [facility] 06-15-2015 pneumococcal conjuga te vaccine, 13 valent Rod Roman MD Work Phone: [facility] 08-08-2014 influenza virus vacc ine, whole virus Rod Roman MD Work Phone: [facility] 07-12-2010 pneumococcal conjuga te vaccine, 7 valent Rod Roman MD Work Phone: [facility] Payers Date Payer Category Payer Medicare MEDICARE MEDICAR E A AND B [id number] 2005-Present [phone] [address] [address] [place] [address] Medicare [id number] 2005 Medicare [id number] [id number] 2005 Unknown HOSPITAL/MEDICAL GENERIC MEDICAL GENERIC [id number] 2005-Present [phone] [address] [address] [place] [id number] Indemnity [id number] [id number] 2005 Unknown [id number] [id number] .[id number] 1959 Medicare [id number] 1959 Unknown [id number] 1940 Unknown [id number] 2.16.840.1.260622.3.579.2.647 1940 Unknown [id number] 2.16.840.1.089645.3.579.2.593 1940 Unknown [id number] 2.16.840.1.548263.3.579.2.593 1940 Unknown [id number] 2.16.840.1.984596.3.579.2.593 1940 Unknown [id number] 2.16.840.1.669915.3.579.2.593 1940 Unknown [id number] 2.16.840.1.151564.3.579.2.593 1940 Unknown [id number] 2.16.840.1.803787.3.579.2.593 1940 Unknown [id number] 2.16.840.1.037044.3.579.2.593 1940 Unknown [id number] 2.16.840.1.247210.3.579.2.125 9 1940 Unknown [id number] 2.16.840.1.123616.3.579.2.125 9 1940 Unknown [id number] 2.16.840.1.296075.3.579.2.125 9 1940 Unknown [id number] 2.16.840.1.886586.3.579.2.125 9 1940 Unknown [id number] 2.16.840.1.057699.3.579.2.125 9 1940 Unknown [id number] 2.16.840.1.268123.3.579.2.175 1940 Unknown [id number] 2.16.840.1.546747.3.579.2.175 1940 Unknown [id number] 2.16.840.1.065509.3.579.2.175 Medicare [id number] Social History Date Type Detail Facility Start: 11-11-2020 End: 10-15-2023 Tobacco smoking status NHIS Ex-smoker [facility] Start: 12-30-2009 End: 08-01-2020 History of tobacco use Current smoker [facility] Start: 11-11-2020 End: 04-08-2023 Cigarettes smoked current (pack per day) - Reported 1 [facility] Start: 11-11-2020 Tobacco use and exposure Smoke less tobacco non-user [facility] Start: 03-05-2022 End: 04-08-2023 Alcohol intake Current drinker of alcohol (finding) [facility] Start: 1940 Sex Assigned At Not on file [facility] Start: 02-23-2022 End: 07-30-2022 Exposure to SARS-CoV-2 (event) Not sure [facility] Start: 12-30-2009 End: 08-01-2020 History of tobacco use Cigarette Smoker [facility] Start: 04-08-2023 End: 12-01-2023 Tobacco use panel [facility] Adult Depression Scr eening Assessment 0 [facility] Clinical Notes 01-30-2022 to 04-04-2024 Telephone Encounter - Janeth Bright MA - 04/04/2024 10:31 AM EDTTelephone Encounter - Janeth Bright MA - 04/04/2024 10:31 AM EDTJrMarguerite Stewart DO - 12/01/2023 1:00 PM EST Note Date & Type Note Facility 04-04-2024 Telephone encounter Note Patient has an appt on 04/17/24. Would you like labs-her labs are , please place orders. Janeth Bright MA [facility] 04-04-2024 Miscellaneous Notes Patient has an appt on 04/17/24. Would you like labs-her labs are , please place orders. Janeth Bright MA documented in this encounter [facility] 12-01-2023 History of Presen t illness Narrative Images from the original note were not included. HISTORY OF PRESENT ILLNESS: EST PT Josefa Castillo is an 83 y.o. @ female. (EST PT; MOST RECENT VISIT WITH ALEXANDREA) S/P (L) HIP FX W/ ORIF 08/26/23 (13WKS 6DAY) @ [facility] - PT C/O PAIN XRAY LT HIP [...] 100 mg, Oral, 2 times daily HYDROcodone-acetaminophen ([place]) 5-325 MG tablet 1 tablet, Oral, 4 [...] recommending a referral to Dr. Christine in [place] with patient's verbal agreeance. We have discussed her HEP and restrictions and will see her back on a prn basis. Lupe Field MA documented in this encounter [facility] 07-29-2023 Instructions Rod Roman MD - 07/29/2023 10:45 AM EDT Labs to include B12 in 8 weeks. Labs every 8 weeks, CBC, CMP Continue current regimen of Hydrea 500 mg daily Wednesday - Wednesday but increase to 2 tablets (1000 mg) on Saturdays and Sundays) B12 Shot today and every 8 weeks. RTC in 16 weeks documented in this encounter [facility] 07-29-2023 History of Presen t illness Narrative Images from the original note were not included. NAME: Josefa Castillo CLINIC NO.: [id number] DATE OF SERVICE: July 29, 2023 (Carlos) [...] 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 She has been on various dosing through [...] month 3. Basal cell ca of right yarsanism April 2023 PLAN: Labs to include B12 in 8 weeks. Labs every 8 weeks, CBC, CMP Continue current regimen of Hydrea 500 mg daily Wednesday - Wednesday but increase to 2 tablets (1000 mg) on Saturdays and Sundays) B12 Shot today and every 8 weeks. RTC in 16 weeks HPI: Updated Visit, July 29, 2023: Right yarsanism was not a melanoma - basal cell. Labs reviewed and adjusted hydrea on weekends Otherwise is doing very well. Updated Visit, April 08, 2023: Says she's not doing well. 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 Continues B12 shots every 8 weeks [...] the left side of head over the yarsanism and into the jaw. No vision changes associated with pain. Intermittent and dull and pounding. Right yarsanism at the corner of her eye lid [...] She was following with Dr. Bower in [facility]. Initially on 6 pills of hydrea. 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 She has not required other treatments. Also a history of iron deficiency and required iron infusions occasionally. She then moved [facility] in [address] Pfeiffer, spring tester in [facility] and required more iron and blood and [...] which included preparing to see the patient, [id number] patient care, completing clinical documentation, performing a medically appropriate examination, counseling and educating the patient/family/caregiver, ordering medications, tests, or procedures, and independently interpreting results (not separately reported). Rod Roman MD, [place], [place] CC: Tito Hillman MD [address] [place], [place] [id number] documented in this encounter [facility] 07-29-2023 Note HNO ID: [id number] Author: Rod Roman MD Service: ? Author Type: Physician Type: Progress Notes Filed: 08/01/2023 3:49 PM Note Text: NAME: Josefa Castillo CLINIC NO.: [id number] DATE OF SERVICE: July 29, 2023 (Carlos) [...] 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 She has been on various dosing through [...] month 3. Basal cell ca of right yarsanism April 2023 PLAN: Labs to include B12 in 8 weeks. Labs every 8 weeks, CBC, CMP Continue current regimen of Hydrea 500 mg daily Wednesday - Wednesday but increase to 2 tablets (1000 mg) on Saturdays and Sundays) B12 Shot today and every 8 weeks. RTC in 16 weeks HPI: Updated Visit, July 29, 2023: Right yarsanism was not a melanoma - basal cell. Labs reviewed and adjusted hydrea on weekends Otherwise is doing very well. Updated Visit, April 08, 2023: Says she's not doing well. 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 Continues B12 shots every 8 weeks [...] the left side of head over the yarsanism and into the jaw. No vision changes associated with pain. Intermittent and dull and pounding. Right yarsanism at the corner of her eye lid [...] Hydrea 50 (more content not included)... [facility] 04-08-2023 Nurse Note Patient Identification confirmed: yes. Injection given and documented on DEC per provider order. Janeth Bright MA documented in this encounter [facility] 04-08-2023 Note HNO ID: [id number] Author: Rod Roman MD Service: ? Author Type: Physician Type: Progress Notes Filed: 04/11/2023 2:03 PM Note Text: NAME: Josefa Castillo [facility] NO.: [id number] DATE OF SERVICE: April 08, 2023 (Carlos) [...] 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 Continues B12 shots every 8 weeks [...] the left side of head over the yarsanism and into the jaw. No vision changes associated with pain. Intermittent and dull and pounding. Right yarsanism at the corner of her eye lid [...] with 2 new great granchildren born in [facility] and in the New year. Counts [...] last Mo (more content not included)... [facility] 04-08-2023 History of Presen t illness Narrative Images from the original note were not included. NAME: Josefa Castillo CLINIC NO.: [id number] DATE OF SERVICE: April 08, 2023 (Carlos) [...] 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 Continues B12 shots every 8 weeks [...] the left side of head over the yarsanism and into the jaw. No vision changes associated with pain. Intermittent and dull and pounding. Right yarsanism at the corner of her eye lid [...] with 2 new great granchildren born in [facility] and in the New year. Counts [...] She was following with Dr. Bower in [facility]. Initially on 6 pills of hydrea. 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 She has not required other treatments. Also a history of iron deficiency and required iron infusions occasionally. She then moved [facility] in [address] Pfeiffer, spring tester in [facility] and required more iron and blood and [...] which included preparing to see the patient, [id number] patient care, completing clinical documentation, performing a medically appropriate examination, counseling and educating the patient/family/caregiver, ordering medications, tests, or procedures, and independently interpreting results (not separately reported). Rod Roman MD, CPE [facility] [place], [place] CC: Tito Hillman MD [address] [place] [id number] documented in this encounter [facility] 02-19-2023 Note Cardiovascular Medic [facility] SUBJECTIVE Chief Complaint Patient presents with Coronary Artery Disease Hypertension Telehealth Phone Visit Josefa Castillo is a 82 y.o. female being evaluated for routine follow-up. HPI PMHx of HTN, CAD s/p stents x3 to LAD and RCA done in [place]. She has a hx of a loop recorder being placed in [place] d/t complaint of syncope. Loop recorder battery , never removed. Dr. Smart gave her the option to go to [place] to have it removed but she refused. [...] Affect: Mood normal (more content not included)... [facility] 02-19-2023 Note Telephone apt for 2 [...] All other systems reviewed and are negative. [facility] 12-17-2022 History of Presen t illness Narrative Patient Identification confirmed: yes. Injection given and documented on DEC per provider order. Katya Craig documented in this encounter [facility] 12-17-2022 Instructions Rod Roman MD - 12/17/2022 10:48 AM EST Labs every 8 weeks, CBC, CMP Labs to include B12 in 8 weeks. Continue current regimen of Hydrea 500 mg daily B12 Shot today and every 8 weeks. RTC in 16 weeks Defer left sided headache and right yarsanism lesion to Dr. Hillman. documented in this encounter [facility] 12-17-2022 History of Presen t illness Narrative Images from the original note were not included. NAME: Josefa Castillo CLINIC NO.: [id number] DATE OF SERVICE: December 17, 2022 (Carlos) [...] 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 She has been on various dosing through [...] weeks Defer left sided headache and right yarsanism lesion to Dr. Hillman. HPI: Updated Visit, [...] the left side of head over the yarsanism and into the jaw. No vision changes associated with pain. Intermittent and dull and pounding. Right yarsanism at the corner of her eye lid [...] She was following with Dr. Bower in [facility]. Initially on 6 pills of hydrea. 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 She has not required other treatments. Also a history of iron deficiency and required iron infusions occasionally. She then moved [facility] in [address] Pfeiffer, spring tester in [facility] and required more iron and blood and [...] which included preparing to see the patient, [id number] patient care, completing clinical documentation, performing a medically appropriate examination, counseling and educating the patient/family/caregiver, ordering medications, tests, or procedures, and independently interpreting results (not separately reported). Rod Roman MD, [place], [place] CC: Tito Hillman MD [address] [facility] [id number] documented in this encounter [facility] 11-12-2022 Miscellaneous Notes Please change b-12 date to 11/13/21. Kiera Rey Ma documented in this encounter [facility] 07-30-2022 Nurse Note Patient Identification confirmed: yes. Injection given and documented on DEC per provider order. Lory Avitia documented in this encounter [facility] 07-30-2022 Instructions Rod Roman MD - 07/30/2022 10:30 AM EDT Labs every 4 weeks, CBC, CMP Labs to include B12 in 8 weeks. Continue current regimen of Hydrea 500 mg daily B12 Shot today and every 4 weeks. Defer left sided headache and right yarsanism lesion to Dr. Hillman. documented in this encounter [facility] 07-30-2022 History of Presen t illness Narrative Images from the original note were not included. NAME: Josefa Castillo CLINIC NO.: [id number] DATE OF SERVICE: July 30, 2022 Some elements in this clinic note that are critical to medical decision making have been carefully reviewed and included from a prior clinic note dated: March 05, 2022 Referring Provider: Tito Hillman MD Additional Clinicians involved in Josefa Csatillo's care: CC: Follow up ASSESSMENT: 1. 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 She has been treated with Hydrea since 2001 when she suffered a mini-stroke and was 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 She has been on various dosing through [...] weeks. Defer left sided headache and right yarsanism lesion to Dr. Hillman. HPI: Updated Visit, July 30, 2022: Josefa is 82 years old and returns today with several issues outside of what we typically see her for. She has been complaining of pain on the left side of head over the yarsanism and into the jaw. No vision changes associated with pain. Intermittent and dull and pounding. Right yarsanism at the corner of her eye lid [...] with 2 new great granchildren born in [facility] and in the New year. Counts [...] She was following with Dr. Bower in [facility]. Initially on 6 pills of hydrea. 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 She has not required other treatments. Also a history of iron deficiency and required iron infusions occasionally. She then moved [facility] in [address] Pfeiffer, spring tester in [facility] and required more iron and blood and [...] which included preparing to see the patient, [id number] patient care, completing clinical documentation, performing a medically appropriate examination, counseling and educating the patient/family/caregiver, ordering medications, tests, or procedures, and independently interpreting results (not separately reported). Rod Roman MD, CPE [facility] [place], [place] CC: Tito Hillman MD [address] [facility] [id number] documented in this encounter [facility] 04-30-2022 History of Presen t illness Narrative Patient Identification confirmed: yes. Injection given and documented on DEC per provider order. Katya Craig documented in this encounter [facility] 04-02-2022 Nurse Note Patient Identification confirmed: yes. Injection given and documented on DEC per provider order. Kiera Rey Ma documented in this encounter [facility] 03-05-2022 History of Presen t illness Narrative Images from the original note were not included. NAME: Josefa Castillo CLINIC NO.: [id number] DATE OF SERVICE: March 05, 2022 Some [...] 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 She has been on various dosing through [...] She was following with Dr. Bower in [facility]. Initially on 6 pills of hydrea. 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 She has not required other treatments. Also a history of iron deficiency and required iron infusions occasionally. She then moved [facility] in [address] Pfeiffer, spring tester in [facility] and required more iron and blood and [...] which included preparing to see the patient, [id number] patient care, completing clinical documentation and ordering medications, tests, or procedures. Rod Roman MD, CPE [facility] [place], [place] CC: Tito Hillman MD [address] [facility] [id number] documented in this encounter [facility] 01-30-2022 Nurse Note Patient Identification confirmed: yes. Injection given and documented on DEC per provider order. Lolly Reagan documented in this encounter [facility] Evaluation note Diagnosis Essential thrombocythemia (HCC)- Primary Essential thrombocythemia Megaloblastic anemia due to vitamin B12 deficiency Other vitamin B12 deficiency anemia Osteopenia of multiple sites [facility] Diagnosis Megaloblastic anemia due to vitamin B12 deficiency- Primary Other vitamin B12 deficiency anemia [facility]* Diagnosis Megaloblastic anemia due to vitamin B12 deficiency- Primary Other vitamin B12 deficiency anemia documented [facility] encounter [facility]* Diagnosis Megaloblastic anemia due to vitamin B12 deficiency- Primary Other vitamin B12 deficiency anemia documented [facility] encounter [facility]* Diagnosis Megaloblastic anemia due to vitamin B12 deficiency- Primary Other vitamin B12 deficiency anemia documented [facility]* Diagnosis Essential thrombocythemia (HCC)- Primary Essential thrombocythemia Iron deficiency anemia, unspecified iron deficiency anemia type documented in this encounter [facility]* Diagnosis Essential thrombocythemia (HCC)- Primary Essential thrombocythemia Megaloblastic anemia due to vitamin B12 deficiency Other vitamin B12 deficiency anemia Iron deficiency anemia, unspecified iron deficiency anemia type documented in this encounter [facility]* Diagnosis Essential thrombocythemia (HCC)- Primary Essential thrombocythemia Megaloblastic anemia due to vitamin B12 deficiency Other vitamin B12 deficiency anemia documented [facility]* Diagnosis Megaloblastic anemia due to vitamin B12 deficiency- Primary Other vitamin B12 deficiency anemia Essential thrombocythemia (HCC) Essential thrombocythemia documented in this encounter [facility] note* Diagnosis Left hip pain- Primary Pain in joint, pelvic region and thigh Pain from implanted hardware, initial encounter [facility] Diagnosis Essential thrombocythemia (HCC)- Primary Essential thrombocythemia Megaloblastic anemia due to vitamin B12 deficiency Other vitamin B12 deficiency anemia documented in this encounter [facility] for referral (narrative)* Consultation (Routine) - Authorized Specialty Diagnoses / Procedures Referred By Altagracia yuen Referred To Contact Orthopaedic Surgery Diagnoses Pain from implanted hardware, initial encounter Jr. Kaylan Stewart DO [address] [facility] [address] [place] [address] Aristeo George MD [address] [place] [address] [address] [place] [address] Referral ID Status Reason Start Date Expiration Date Visits Requested Visits Authorized [id number] Authorized Specialty Services Required 12/01/2023 05/29/2024 1 [...] and content) DATE CREATED AUTHOR 11/11/2019 [facility] DATE CREATED AUTHOR AUTHOR'S ORGANIZ ATION 02/01/2023 [facility] DATE CREATED AUTHOR AUTHOR'S ORGANIZ ATION 02/24/2023 [facility] DATE CREATED AUTHOR AUTHOR'S ORGANIZ ATION 01/24/2024 [facility] DATE CREATED AUTHOR AUTHOR'S ORGANIZ ATION 02/24/2024 [facility] DATE CREATED AUTHOR AUTHOR'S ORGANIZ ATION 04/05/2024 [facility] Source Comments (unrecognize d section and content) In the event this informatio n is protected by the Federal Confidentiality of Alcohol and Drug Abuse Patient Records regulations: The Federal rules restrict any use of the information to criminally investigate or prosecute any alcohol or drug abuse patient.[facility] event this information is protected by the Federal Confidentiality of Alcohol and Drug Abuse Patient Records regulations: The Federal rules restrict any use of the information to criminally investigate or prosecute any alcohol or drug abuse patient.[facility] the event this information is protected by the Federal Confidentiality of Alcohol and Drug Abuse Patient Records regulations: The Federal rules restrict any use of the information to criminally investigate or prosecute any alcohol or drug abuse patient.[facility] the event this information is protected by the Federal Confidentiality of Alcohol and Drug Abuse Patient Records regulations: The Federal rules restrict any use of the information to criminally investigate or prosecute any alcohol or drug abuse patient.[facility] the event this information is protected by the Federal Confidentiality of Alcohol and Drug Abuse Patient Records regulations: The Federal rules restrict any use of the information to criminally investigate or prosecute any alcohol or drug abuse patient.[facility] the event this information is protected by the Federal Confidentiality of Alcohol and Drug Abuse Patient Records regulations: The Federal rules restrict any use of the information to criminally investigate or prosecute any alcohol or drug abuse patient.[facility] the event this information is protected by the Federal Confidentiality of Alcohol and Drug Abuse Patient Records regulations: The Federal rules restrict any use of the information to criminally investigate or prosecute any alcohol or drug abuse patient.[facility] event this information is protected by the Federal Confidentiality of Alcohol and Drug Abuse Patient Records regulations: The Federal rules restrict any use of the information to criminally investigate or prosecute any alcohol or drug abuse patient.[facility] the event this information is protected by the Federal Confidentiality of Alcohol and Drug Abuse Patient Records regulations: The Federal rules restrict any use of the information to criminally investigate or prosecute any alcohol or drug abuse patient.[facility] the event this information is protected by the Federal Confidentiality of Alcohol and Drug Abuse Patient Records regulations: The Federal rules restrict any use of the information to criminally investigate or prosecute any alcohol or drug abuse patient.[facility] event this information is protected by the Federal Confidentiality of Alcohol and Drug Abuse Patient Records regulations: The Federal rules restrict any use of the information to criminally investigate or prosecute any alcohol or drug abuse patient.[facility] the event this information is protected by the Federal Confidentiality of Alcohol and Drug Abuse Patient Records regulations: The Federal rules restrict any use of the information to criminally investigate or prosecute any alcohol or drug abuse patient.[facility] the event this information is protected by the Federal Confidentiality of Alcohol and Drug Abuse Patient Records regulations: The Federal rules restrict any use of the information to criminally investigate or prosecute any alcohol or drug abuse patient.[facility] Reason for Visit (unrecogniz ed section and content) Reason Comments Thrombocytopenia Reason Comments thrombocythemia Reason Comments B-12 Injection Reason Comments Essential thrombocythemia Follow up Reason Comments Essential thrombocythemia Reason Comments essentail thrombocythemia Reason Comments Pain Reason Comments Lab Orders Care Teams (unrecognized sec tion and content) Top Taper Machine Relationship Specialty Start Date End Date Nadslick Tito Lopez PCP - General Family Practice 06/01/16 Top Taper Machine Relationship Specialty Start Date End Date KadyTito PCP - General Family Practice 06/01/16 Top Taper Machine Relationship Specialty Start Date End Date KadyTito PCP - General Family Practice 06/01/16 Top Taper Machine Relationship Specialty Start Date End Date KadyTito PCP - General Family Practice 06/01/16 Top Taper Machine Relationship Specialty Start Date End Date KadyTito PCP - General Family Medicine 06/01/16 Top Taper Machine Relationship Specialty Start Date End Date ModestoTito ornelas PCP - General Family Medicine 06/01/16 Top Taper Machine Relationship Specialty Start Date End Date ModestoTito ornelas PCP - General Family Medicine 06/01/16 Top Taper Machine Relationship Specialty Start Date End Date KadyTito PCP - General Family Medicine 06/01/16 Top Taper Machine Relationship Specialty Start Date End Date KadyTito PCP - General Family Medicine 06/01/16 Top Taper Machine Relationship Specialty Start Date End Date Tito Hillman PCP - General Family Medicine 06/01/16 Top Taper Machine Relationship Specialty Start Date End Date Tito Hillman MD [address] [place] [id number] PCP - General Family Medicine 11/23/23 Top Taper Machine Relationship Specialty Start Date End Date Tito [...] BE BASED ON THE PRIMARY CLINICAL RECORDS. [facility]. provides no warranty or guarantee of the accuracy or completeness of information in this document.
[2024-06-28] MEDS: METOPROLOL TARTRATE 25 MG TABLET PO (22:46)
[2024-06-28] MEDS: ATORVASTATIN CALCIUM 20 MG TABLET PO (22:47)
[2024-06-28] MEDS: QUETIAPINE FUMARATE 25 MG TABLET PO (22:47)
[2024-06-29] VITALS (9 sets, daily range): BP systolic 94–134; BP diastolic 55–72; PULSE 62–69; TEMP 36.3–36.4; O2SAT 93–96
--- NOTE | 2024-06-29 | MR_ITS ---
[facility] [place] [id number] Patient Name: DEEPIKA WILSON MRN: [id number] date: 1940 Sex: F Assigned Patient Location: [place] Current Patient Location: [place] Accession/Order Number: [id number] Exam Date: 06/29/2024 09:15 Report Date: 06/29/2024 10:47 At the request of: ANDRES GAMBOA Procedure: MR head/brain wo con MRI BRAIN WITHOUT CONTRAST, 06/29/2024. HISTORY: Acute left-sided facial numbness. Left-sided headache. Vision changes. COMPARISON: CT head and CTA brain, 06/28/2024. TECHNIQUE: Multiplanar, multisequence MRI imaging of the brain without contrast. FINDINGS: The paranasal sinuses are clear. The mastoid air cells are clear. Nasopharynx normal. Books Salesperson spaces are normal. Prior cataract surgery. Moderate degree of brain atrophy with enlargement of the sulcal spaces. There is no hydrocephalus. Moderate chronic microvascular ischemic changes in the cerebral white matter. No extra-axial fluid collections or mass effect. Diffusion images are normal. No acute infarction. No hemorrhagic lesions. No masses. MR/MR head/brain wo con IMPRESSION: 1. No acute findings. No acute infarction. 2. No masses. 3. Moderate brain atrophy and chronic microvascular ischemic changes. Electronically authenticated by: ONDINA SLAUGHTER Date: 06/29/2024 10:47
[2024-06-29 05:02] LABS: Bilirubin Urine NEGATIVE (NEGATIVE); Blood Urine TRACE-I (NEGATIVE); Clarity Urine CLEAR (CLEAR); Color Urine YELLOW (YELLOW); Glucose Urine UA NEGATIVE (NEGATIVE); Ketones Urine NEGATIVE (NEGATIVE); Leukocyte Esterase Urine NEGATIVE (NEGATIVE); Nitrite Urine NEGATIVE (NEGATIVE); Protein Urine NEGATIVE (NEG/TRACE); Urobilinogen Urine 0.2 EU/dL (0.2-1.0); pH Urine 5.5 (5.0-9.0)
[2024-06-29 05:03] LABS: Urine Microscopic Indicated YES
[2024-06-29 05:13] LABS: Bacteria Urine NONE SEEN #/HPF (NONE SEEN); Cast Seen? NONE SEEN #/LPF (NONE SEEN); Crystals Seen? None Seen #/HPF (None Seen); Mucus Urine NONE SEEN (NONE SEEN); RBC Urine 0-2 #/HPF (0-2); Squamous Epithelial Cell Urine FEW #/LPF (NONE/RARE); Urine Culture Indicated NO; WBC Urine NONE SEEN #/HPF (NONE SEEN)
[2024-06-29 06:21] LABS: Basophils Percent Auto 0.3 % (0.2-2.0); Hematocrit 33.6 % (36.0-48.0); Hemoglobin 11.3 g/dL (12.0-16.0); Immature Granulocytes Pct Auto 1.5 % (0.0-0.5); Lymphocytes Absolute Auto 0.7 10^3/uL (1.2-3.8); Lymphocytes Percent Auto 11.1 % (20.5-60.0); Mean Corpuscular HGB Conc 33.6 g/dL (29.9-35.2); Mean Corpuscular Hemoglobin 42.2 pg (26.7-34.0); Mean Corpuscular Volume 125.4 fL (81.0-99.0); Mean Platelet Volume 10.3 fL (9.5-13.5); Monocytes Absolute Auto 0.1 10^3/uL (0.3-0.8); Monocytes Percent Auto 1.1 % (1.7-12.0); Neutrophils Absolute Auto 5.6 10^3/uL (1.4-6.5); Platelet Count 463 10^3/uL (150-450); Red Blood Count 2.68 10^6/uL (4.20-5.40); Red Cell Distribution Width 16.7 % (11.0-15.0); White Blood Count 6.5 10^3/uL (4.0-11.0)
[2024-06-29 06:31] LABS: INR 1.08; Partial Thromboplastin Time 27.9 sec (22.3-36.2); Prothrombin Time 11.4 sec (9.0-11.6)
[2024-06-29 06:38] LABS: Alanine Aminotransferase 16 U/L (14-59); Albumin Globulin Ratio 1.3; Albumin Level 3.4 g/dL (3.4-5.0); Alkaline Phosphatase 61 U/L (46-116); Anion Gap 15.1; Aspartate Amino Transferase 16 U/L (15-37); BUN Creatinine Ratio 12.9; Bilirubin Total 0.4 mg/dL (0.2-1.0); Calcium 8.9 mg/dL (8.5-10.1); Carbon Dioxide 24.1 mmol/L (21.0-32.0); Chloride 104 mmol/L (98-107); Estimated GFR (African America 50 (>=60); Estimated GFR (Non-African Ame 41 (>=60); Globulin 2.6 g/dL; Glucose 163 mg/dL (74-106); Phosphorus 4.9 mg/dL (2.6-4.7); Potassium 5.2 mmol/L (3.5-5.1); Sodium 138 mmol/L (136-145)
--- NOTE | 2024-06-29 08:36 | P.HP_ITS ---
HPI H&P: HPI History of Present Illness Chief complaint: Visual Disturbance, Headache, Paresthesia Narrative: Patient is a 83 year old white female with past medical history of TIA's, paroxysmal afib, sleep apnea, CAD w 2 stents, Essential Thrombocythemia who presented to the ER last night with headache. She reports blurriness of vision in both eyes, L>R, and some left face numbness, left hand numbness and left leg weakness. This lasted a few hours and seemed to subside when she was treated for her headache in the ER. This morning all her symptoms have resolved. She never had difficulty with speech and was A&O x3. Weakness and numbness have also resolved. She denies any recent illness, no fevers, chills, diarrhea. She reports BP has been running well and she takes daily aspirin. No other issues or concerns today. ER Findings: CT head and CTA head and neck where negative for stenosis or acute findings; Chronic microvascular changes noted. WBC's 6.5, Hb 11.3, ESR and CRP normal range, K 4.9, Cr 1.24; patient was treated with phenergan, Solumedrol, Fentanyl. Telestroke recommended MRI and admission. Opioid HPI Opioid Management Most Recent Pain and Opioid Data: Last Pain Scale 5 06/29/24 08:55 Last Pain Assessment 06/29/24 10:10 Last MAR Pain Assessment 06/29/24 08:55 Last ORT Total Score 6 06/28/24 21:58 Last ORT Risk Category Moderate Risk 06/28/24 21:58 Review of Systems ROS Narrative ROS: a complete review of systems were reviewed with patient and are positive as below or listed in History of Chief Complaint. General: no fever, chills, night sweats Head: no headache, trauma, has been having blurry visual changes, no nausea or vomiting Skin: no reported rashes, itching or sores Eyes: blurriness of vision Ears: no reported hearing loss, vertigo, earache, or tinnitus Throat: no sore throat, hoarseness, swelling of neck, or tongue pain Heart: no chest pain Lungs: no shortness of breath or cough GI: no diarrhea or vomiting/nausea Urinary: no urinary urgency, frequency or pain Neuro: numbness or tingling of left face, left hand and left leg HEM: no bleeding issues or bruising ENDO: no thyroid problems Psych: no anxiety or depression PFSH PFSH Medical History Essential thrombocytosis ?D47.3 - Essential (hemorrhagic) thrombocythemia (ICD-10) Skin cancer ?C44.90 - Unspecified malignant neoplasm of skin, unspecified (ICD-10) Mini stroke ?G45.9 - Transient cerebral ischemic attack, unspecified (ICD-10) Sleep apnea ?G47.30 - Sleep apnea, unspecified (ICD-10) Afib ?I48.91 - Unspecified atrial fibrillation (ICD-10) HTN (hypertension) ?I10 - Essential (primary) hypertension (ICD-10) Surgical History H/O heart artery stent ?Z95.5 - Presence of coronary angioplasty implant and graft (ICD-10) History of back surgery ?Z98.890 - Other specified postprocedural states (ICD-10) History of left hip replacement ?Z96.642 - Presence of left artificial hip joint (ICD-10) Social History Smoking status: Never smoker Highest level of school completed/degree received: 12th grade, no diploma Meds Home Medications and Allergies Home Medications ?Medication ?Instructions ?Recorded ?Confirmed ?Type aspirin 81 mg capsule 81 mg PO DAILY 12/24/23 06/28/24 History atorvastatin 20 mg tablet 20 mg PO .QHS 12/24/23 06/28/24 History celecoxib 100 mg capsule 100 mg PO Q12H 12/24/23 06/29/24 History hydrocodone 5 mg-acetaminophen 325 1 tab PO Q6H PRN pain 12/24/23 06/28/24 History mg tablet isosorbide mononitrate 60 mg 60 mg PO QAM 12/24/23 06/28/24 History tablet,extended release 24 hr lisinopril 10 mg tablet 10 mg PO QAM 12/24/23 06/28/24 History metoprolol tartrate 25 mg tablet 25 mg PO Q12H 12/24/23 06/28/24 History paroxetine HCl 40 mg tablet 40 mg PO QAM 12/24/23 06/28/24 History quetiapine 25 mg tablet 25 mg PO .QHS 12/24/23 06/28/24 History hydroxyurea 500 mg capsule 500 mg PO DAILY 06/28/24 06/28/24 History ondansetron 4 mg disintegrating 4 mg PO Q6H PRN nausea and vomiting 06/28/24 06/28/24 History tablet Allergies Allergy/AdvReac Type Severity Reaction Status Date / Time morphine AdvReac Severe Hallucinati Verified 12/24/23 08:47 ng Sulfa (Sulfonamide AdvReac Severe Verified 12/24/23 08:47 Antibiotics) Exam Narrative Exam Narrative: General: Patient is alert, and oriented to person, place and time with normal affect, proper hygiene Skin: no visible rashes, or ulcers Head: atraumatic, acephalic Eyes: PERRLA, no nystagmus present, conjunctiva clear, no scleral icterus Ears: normal gross auditory acuity Nose: symmetric, no discharge, no maxillary or frontal sinus tenderness Mouth/Throat: slight pain with palpation of the left mandible Neck: no masses palpated Heart: Normal rate and rhythm, no murmurs/rubs/gallops Lungs: no audible wheezes, crackles and normal breath sounds all lung shin Abdomen: Normal audible bowel sounds, no distension, No palpable masses, no organomegaly, no rebound/guarding/ or rigidity Musculoskeletal: no swelling bilateral lower extremities Neuro: CN II-X grossly intact, normal sensation upper and lower extremities and face, strength was 5/5 in bilateral lower ext. Constitutional Vital Signs, click to edit/add: Last Vital Signs Temp 97.6 F 06/29/24 07:44 Pulse 65 06/29/24 07:44 Resp 16 06/29/24 07:44 BP 134/58 06/29/24 07:44 Pulse Ox 95 06/29/24 07:44 O2 Del Method Room Air 06/29/24 07:44 Results Labs Labs: Short CBC 06/28/24 06/29/24 Range/Units 18:55 06:06 WBC 6.5 6.5 (4.0-11.0) 10^3/uL Hgb 11.8 L 11.3 L (12.0-16.0) g/dL Hct 34.9 L 33.6 L (36.0-48.0) % Plt Count 498 H 463 H (150-450) 10^3/uL BMP 08/28/24 08/29/24 18:55 06:06 Sodium 138 138 Potassium 4.3 5.2 H Chloride 102 104 Carbon Dioxide 29.4 24.1 BUN 15.0 16.0 Creatinine 1.10 H 1.24 H Glucose 122 H 163 H Calcium 8.7 8.9 Liver Function 06/28/24 06/29/24 Range/Units 18:55 06:06 Total Bilirubin 0.4 0.4 (0.2-1.0) mg/dL AST 10 L 16 (15-37) U/L ALT 13 L 16 (14-59) U/L Alkaline Phosphatase 69 61 (46-116) U/L Albumin 3.7 3.4 (3.4-5.0) g/dL Urine 06/29/24 Range/Units 05:00 Urine Color Yellow (YELLOW) Urine Clarity Clear (CLEAR) Urine pH 5.5 (5.0-9.0) Ur Specific [place] 1.010 (1.005-1.025) Urine Protein Negative (NEG/TRACE) mg/dL Urine Glucose (UA) Negative (NEGATIVE) mg/dL Assessment and Plan Assessment and Plan (1) Acute left-sided weakness: Assessment and Plan: TIA versus Atypical migraine. CTA, CT and MRI brain have all been negative for acute findings. Chronic small vessel ischemic changes are seen. Continue aspirin and Atorvastatin. Symptoms have resolved. (2) Headache: Assessment and Plan: resolved with medication from the ER. Vision also improved. Possible atypical headache Qualifiers: Headache chronicity pattern: acute headache Intractability: not intractable Headache type: unspecified Qualified Code(s): R51.9 - Headache, unspecified (3) NELIA (acute kidney injury): Assessment and Plan: start LR @50 for contrast induced nephropathy, hold celebrex and lisinopril (4) Essential thrombocytosis: Assessment and Plan: continue hydroxyurea (5) Afib: Assessment and Plan: currently in NSR, continue isosorbide, metoprolol and aspirin Qualifiers: Atrial fibrillation type: paroxysmal Qualified Code(s): I48.0 - Paroxysmal atrial fibrillation (6) HTN (hypertension): Assessment and Plan: monitor, continue home medications Qualifiers: Hypertension type: primary hypertension Qualified Code(s): I10 - Essential (primary) hypertension (7) Sleep apnea: Qualifiers: Sleep apnea type: unspecified type Qualified Code(s): G47.30 - Sleep apnea, unspecified Plan Patient is a full code Currently on Heparin for DVT prophylaxis Patient is in observation status and is not expected to cross 2 midnights.
[2024-06-29] MEDS: PAROXETINE HCL 20 MG TABLET 40 MG PO (08:41)
[2024-06-29] MEDS: ISOSORBIDE MONONITRATE 60 MG TAB.ER.24H PO (08:42)
[2024-06-29] MEDS: ASPIRIN 81 MG TABLET.DR PO (08:42)
[2024-06-29] MEDS: LISINOPRIL 10 MG TABLET PO (08:43)
[2024-06-29] MEDS: METOPROLOL TARTRATE 25 MG TABLET PO (08:45)
[2024-06-29] MEDS: HYDROCODONE/ACET 5-325 MG TABLET 1 TAB PO (08:55)
--- NOTE | 2024-06-29 09:51 | CM.NOTE ---
Rounds made with Dr. Guerra, pt not in room. RN states pt is getting MRI this AM. Dr. Guerra will evaluate pt after MRI.
[2024-06-29] MEDS: LACTATED RINGER'S SOLUTION 1,000 ML 50 ML IV (10:23)
[2024-06-29] MEDS: HYDROXYUREA 500 MG CAPSULE PO (10:23)
[2024-06-29] MEDS: HEPARIN SODIUM (PORCINE) 5,000 UNIT/ML VIAL 5000 UNIT SUBQ (10:24)
--- NOTE | 2024-06-29 11:00 | CA_ITS ---
Patient Name: DEEPIKA WILSON MR#: [id number] : 1940 Exam Date: 06/29/2024 Ordering Doctor: ANDRES GAMBOA . ECHOCARDIOGRAM REPORT PROCEDURE: CA ECHO DOPPLER COMPLETE INDICATIONS: TIA symptoms, history of Afib, HTN, cardiac stents COMPARISON: None. DESCRIPTION: COMPLETE ECHOCARDIOGRAM Real-time transthoracic echocardiography with 2D, M-mode, spectral and color flow Doppler performed. QUALITY: Technical quality was good. LEFT VENTRICLE: Normal chamber size. Normal left ventricular wall thickness. Hyperdynamic systolic function. Mild ventricular outflow obstruction, related to hyperdynamic function. LV EF: Hyperdynamic left ventricular ejection fraction, (75%). DIASTOLIC: Grade I diastolic dysfunction. ATRIAL SEPTUM: Visually appears intact. LEFT ATRIUM: Moderate dilatation. RIGHT ATRIUM: Mild dilatation. RIGHT VENTRICLE: Normal chamber size. Normal right ventricular systolic function. TRICUSPID VALVE: Normal mobility and thickness. No stenosis with mild regurgitation. No evidence of pulmonary hypertension. RVSP 31 mmHg MITRAL VALVE: Moderately thickened with decreased mobility. No evidence of mitral valve stenosis. Mild mitral annular calcification. No mitral regurgitation. AORTIC VALVE: Normal trileaflet appearance. No visible sclerosis. Normal leaflet mobility. No evidence of aortic valve stenosis. No aortic regurgitation. AORTIC ROOT: Normal diameter and appearance. PULMONIC VALVE: Normal thickness and mobility. Normal with No regurgitation. PERICARDIUM: No evidence of pericardial effusion. IVC: IVC is normal in size, does not collapse. PLEURA: CONCLUSION: 1. Left ventricle is normal in size and exhibits hyperdynamic systolic function. Estimated LVEF is 75%. 2. Mild diastolic dysfunction. 3. Normal right ventricular size and systolic function. 4. Mild to moderate biatrial dilatation. 5. Mild tricuspid regurgitation. 6. Normal right-sided pressures. Adult Echocardiography Procedure Report Left Ventricle LVEDD (3.7 - 5.6 cm): 3.45 cm LVESD (2.2 - 4.0 cm): 2.20 cm LVIVS thickness (0.6 - 1.2 cm): 0.90 cm LVPW thickness (0.5 - 1.0 cm): 0.88 cm e': 0.10 m/s E - e': 5.51 LVOT Max Gradient: 11.40 mm[Hg] LVOT Area (cm2): 1.69 m/s Peak Velocity (LVOT): 1.69 m/s Mean Velocity (LVOT): 1.15 m/s LVOT Diameter 1.64 cm Left Atrium LA Volume Index (2D A2C): 40.71 ml/m2 Left Atrium Systolic Dimension: 3.30 cm Mitral Valve MV E to A Ratio: 0.44 Mitral Valve A-Wave Peak Velocity: 1.23 m/s Mitral Valve E-Wave Peak Velocity: 0.54 m/s Right Ventricle Aorta AO Root Diam: 2.42 cm Aortic Valve AoV Area (Peak Mic): 1.90 cm2, 1.90 cm2 AoV Area (VTI): 1.95 cm2, 1.98 cm2 Peak Velocity(Antegrade Flow): 1.87 m/s, 1.77 m/s Peak Gradient(Antegrade Flow): 14.02 mm[Hg], 12.56 mm[Hg] Mean Velocity(Antegrade Flow): 1.28 m/s, 1.37 m/s Mean Gradient(Antegrade Flow): 7.45 mm[Hg], 8.09 mm[Hg] Velocity Time Integral: 41.22 cm, 41.78 cm Tricuspid Valve Peak Velocity (Regurgitant Flow): 2.38 m/s, 2.34 m/s Pulmonic Valve Mean Gradient: 1.18 mm[Hg] Mean Velocity: 0.50 m/s Peak Velocity: 0.83 m/s, 0.74 m/s Peak Gradient: 2.77 mm[Hg], 2.20 mm[Hg] Right Atrium Dictated by: Luc Kelly M.D. on 06/29/2024 at 21:25 Approved by: Luc Kelly M.D. on 06/29/2024 at 21:29
--- NOTE | 2024-06-29 11:18 | SWNOTE1 ---
Possible need for home health. SW went to speak with pt, but she was having some testing done, SW to check back later.
--- NOTE | 2024-06-29 11:44 | SWNOTE1 ---
Pt still having testing done. SW spoke with daughter. Pt lives with daughter and daughter goes to work around 3:00 and pt is in bed around 7:00. SW to speak with them about HH coming in once testing is done.
--- NOTE | 2024-06-29 12:52 | SWNOTE1 ---
LEYDI met with pt and pt's daughter in room. Pt lives at home with daughter and uses a walker at home. Pt has had HH in past and she is open to having HH come in again. Pt does not remember the company. SW provided pt with [facility] ([email or web address]) and pt does not have a preference and neither does daugher. SW to send referral to [facility]. Referral sent to [facility] . Referral included face sheet, ED note, H&P, provider notes, and PT/OT notes. LEYDI advised nurse and pt that they do not have to wait for HH to be set, SW will call to let her know what company is able to take her on for sure. Medicare Outpatient Observation Notice reviewed and discussed with patient. Pt. verbalized understanding and signed the form. Original given to patient and copy placed in patient?s chart.
--- NOTE | 2024-06-29 13:41 | SWNOTE1 ---
[facility] able to accept. SW notified pt.
--- NOTE | 2024-06-30 13:51 | CM.DCFOLLOWU ---
Person spoke with:patient's daughter How are you feeling? well How is your pain? none Did you understand your discharge instructions? yes Do you have any questions about your discharge instructions? no Were you given any prescriptions at discharge? no Were you able to get your prescriptions filled? N/A Do you understand how to take your medications as ordered? yes Do you have any questions about your follow up appointment and do you plan to keep your follow up appointment? no questions, reviewed follow up Is there anything else that you would like to discuss? no Questions/Comments/Concerns/Other: none
== END 2024-06-29 13:45 | disposition home health service (06) ==
LOC: ER 21:46 → MS 21:55
PROVIDERS: Emergency Medicine; Physician Assistant; Registered Nurse; Admitting Provider Family Medicine; Emergency Provider Internal Medicine; PCP Family Medicine; Visit Provider Family Medicine
DX: R53.1 Weakness (principal); R51.9 Headache, unspecified; N17.9 Acute kidney failure, unspecified; D75.839 Thrombocytosis, unspecified; I48.0 Paroxysmal atrial fibrillation; Z79.899 Other long term (current) drug therapy; Z79.82 Long term (current) use of aspirin; I10 Essential (primary) hypertension; G47.30 Sleep apnea, unspecified; I25.10 Atherosclerotic heart disease of native coronary artery without angina pectoris; R20.2 Paresthesia of skin; Z95.5 Presence of coronary angioplasty implant and graft; Z86.73 Personal history of transient ischemic attack (TIA), and cerebral infarction without residual deficits
CPT/HCPCS: 36415; 70450; 70496; 70498; 70551; 80053; 81001; 83605; 83735; 84100; 84484; 85025; 85610; 85652; 85730; 86140; 93005; 93306; 94761; 96365; 96372; 96375; 97165; 99285; G0378; J1644; J1650; J2250; J2919; J3010; Q9967

== ENCOUNTER 2024-07-11 11:02 | Emergency (ER) | payer MEDICARE, OTHER, SELFPAY ==
[2024-07-11 11:08] VITALS: BP 174/87; PULSE 56; TEMP 36.5; O2SAT 100; BMI 19.3
--- NOTE | 2024-07-11 11:12 | ECG_ITS ---
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
--- OUTSIDE RECORDS SUMMARY | 2024-07-11 11:27 | XMS_ITS | CCD ---
Author Organization [facility] ion [facility] Care Team Providers Care Nuclear Test Technician Name Role Phone DESTINEE SMART Admitting Unavailable DESTINEE SMART Attending Unavailable UNKNOWN, PHYSICIAN Referring Unavailable UNKNOWN, PHYSICIAN Primary Care Unavailable Kady, Tito Lopez Primary Care Provider Naderer, Tito Lopez Primary Care Provider [phone] Nadslick, Tito Lopez Primary Care Provider [phone] KADY, DR TITO Lopez Primary Care Unavailable KENNETH, DR ARETHA Andersen Admitting Unavailabl e REINECK, DR ARETHA Andersen Attending Unavailabl e REINECK, DR ARETHA Andersen Consulting Unavailabl e WEST, [...] Unavailable NADERER, DR TITO Lopez Consulting Unavailable FAWWAD, KAMARA H Admitting Unavailable FAWWAD, KAMARA H Attending Unavailable NADERER, DR TITO Lopez Primary Care Unavailable FAWWAHeydi, KAMARA H Consulting Unavailable NADERER, DR TITO Lopez [...] NADERER, DR TITO Lopez Primary Care Unavailable HALEY ., JULIANA Admitting Unavailable HALEY ., JULIANA Attending Unavailable JOCELYN, DR LUZ Ornelas Consulting Unavailable HALEY ., JULIANA Consulting Unavailable LINA DOE Attending Unavailable Tito Hillman MD Primary Care Provider ARISTEO GEORGE Referring Unavailable VEGAS, GAEL Primary Care Unavailable BOOTHBY, ARISTEO Kapadia Referring Unavailable VEGAS, GAEL Primary Care Unavailable MICHAEL CONNOR Attending Unavailable JAMAL MAYERS Admitting Unavailable VEGAS, GAEL Primary Care Unavailable BOOTHBY, ARISTEO Kapadia Consulting Unavailable ASLAM, CARLOS Consulting Unavailable Naderer, Tito Lopez Primary Care Provider [phone] KADY, TITO Lopez Primary Care Unavailable ABHYANKAR, ROD Referring Unavailable ABHYANKAR, ROD Attending Unavailable NADERER, TITO Lopez Primary Care Unavailable ABHYANKAR, ROD Referring Unavailable NADERER, TITO Lopez Primary Care Unavailable ABHYANKAR, ROD Referring Unavailable ABHYANKAR, ROD Referring Unavailable NADERER, TITO Lopez Primary Care Unavailable ABHYANKAR, ROD Referring Unavailable NADERER, TITO Lopez Primary Care Unavailable ABHYANKAR, ROD Attending Unavailable NADEREJohnson, TITO Lopez Primary Care Unavailable ABHYANKAR, ROD Referring Unavailable NADERER, TITO Referring Unavailable NADERER, TITO Primary Care Unavailable NADERER, TITO Referring Unavailable NADERER, TITO Primary Care Unavailable NADERER, TITO Primary Care Unavailable NADERER, TITO Referring Unavailable NADERER, TITO Primary Care Unavailable NADEREJohnson, TITO Attending Unavailable NADERER, TITO Attending Unavailable GAEL VEGAS Referring Unavailable ASCENCION, GAEL Morris Attending Unavailable JR. STEWART GEORGE C Referring Unavaila ble JR. STEWART GEORGE C Attending Unavaila ble Allergies Allergy Classification Reported Allergen(s) Allergy Type Date of Onset Reaction(s) Facility Opioid Agonists (1 source) Morphine; Translations: [MORPHINE] Drug Allergy 4 [facility] Repository sulfaSALAzine (1 source) sulfaSALAzine; Translations: [SULFASALAZINE] Drug Allergy 4 [facility] Repository Sulfonamides (antibiotic) (1 source) Sulfonamides (Antibiotic); Translations: [SULFA (SULFONAMIDE ANTIBIOTICS)] Drug Allergy 5 [facility] Repository Sulfur (1 source) Sulfur; Translations: [SULFUR] Drug Allergy 4 [facility] Repository (17 sources) Morphine; Translations: [MORPHINE] Drug Allergy 4 Unknown, Rash, GI intolerance [facility] (14 sources) sulfaSALAzine; Translations: [SULFASALAZINE] Drug Allergy 4 Unknown [facility] (17 sources) Sulfonamides (Antibiotic); Translations: [SULFA (SULFONAMIDE ANTIBIOTICS)] Drug Allergy 4 Unknown, Swelling, Rash [facility] (14 sources) Sulfur; Translations: [SULFUR] Drug Allergy 4 Unknown [facility] (1 source) Morphine Drug Allergy 6 [facility] Repository (1 source) Sulfonamides (Antibiotic) Drug allergy (disorder) 6 [facility] Repository Medications Current Medications Medication Drug Class(es) Dates Sig (Normalized) Sig (Original) acetaminophen 325 mg / HYDROcodone bitartrate 5 mg oral tablet (15 sources) Opioid Agonist Start: 11-29-2023 End: 12-29-2023 take 1 tablet by mouth four times daily as needed for pain HYDROcodone-aceta minophen ([place]) 5-325 MG tablet Indications: DDD (degenerative disc [...] ely th every 6 hours as needed. 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; Translations: [ASHD SQUAXIN CA W/O ANGINA PECTORIS] Onset: 01-27-2023 Chronic [...] 06-08-2016 Chronic Other aftercare (5 sources) Other correction (current) drug therapy; Translations: [OTH NURSING HOME CURRENT DRUG THERAPY] Onset: 05-07-2022 Episodic Other [...] 12-15-2023 Episodic Residual codes; unclassified (1 source) Other [...] Onset: 02-09-2022 Episodic Other aftercare (1 source) 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; Translations: [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] Onset: 08-25-2022 Episodic [...] [ALTERED MENTAL STATUS UNSPECIFIED] Onset: 08-25-2022 Episodic Residual codes; unclassified (2 sources) Pain, unspecified; Translations: [Pain, unspecified] Onset: 05-06-2018 Episodic Screening and history of mental health and substance abuse codes (1 source) Personal history of nicotine dependence; Translations: [PERSONAL HISTORY OF NICOTINE DEPEND] Onset: 08-24-2022 Episodic Urinary tract infections (4 sources) Urinary tract infection, site not specified; Translations: [UTI SITE NOT SPECIFIED] Onset: 07-28-2022 Episodic Results Test Name Value Interpretation Reference Range Facility [facility] 04-04-2024 [facility] Telephone (HEMASA) JOSEFA CASTILLO ([id number]) 1940 F Date Time Provider Department 04/04/24 [...] 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] Order(s):LACTATE DEHYDROGENASE [SQLD6] Order #: [id number] FUTURE COMPLETE BLOOD COUNT AND DIFFERENTIAL [SQCBCDIF] Order #: [id number] FUTURE COMPREHENSIVE METABOLIC PANEL [SQCMP] Order #: [id number] FUTURE Prescriptions as of 04/04/2024 - QUEtiapine [...] Status:Closed by ROD ROMAN on 04/04/24 Normal [facility] XR HIP LEFT (2-3 VIEWS)on XR [...] Aristeo George DO 02/23/24 Final result Normal [facility] XR HIP 2-3 VW W PELVIS LEFTo [...] by: Aristeo George DO Signed by: Aristeo George, 01/07/24 Final result Normal [facility] XR HIP 2-3 VW W PELVIS LEFTo [...] by: Aristeo George DO Signed by: Aristeo George, 12/29/23 Final result Normal [facility] CBC with Diffon 12-22-2023 Abs. Basophil 0.00 k/uL Normal 0.00-0.20 [facility] Comment on above: Performed By: #### C DP #### [facility] [address] [place] [address] Shearer Helper: Ti Willis MD Abs.Imm.Granulocyte 0.10 k/uL Normal 0.00-0.30 [facility] Comment on above: Performed By: #### C DP #### [facility] [address] [place] [address] Shearer Helper: Ti Willis MD Abs.Neutrophil (Seg) 6.92 k/uL Normal 1.50-8.10 [facility] Comment on above: Performed By: #### C DP #### [facility] [address] [place] [address] Shearer Helper: Ti Willis MD Basophils/100 WBC (Bld) 0 % Normal 0-2 [facility] Comment on above: Performed By: #### C DP #### [address] [address] Shearer Helper: Ti Willis MD Eosinophils (Bld) [#/Vol] 0.10 10*3/uL Normal 0.00-0.44 [facility] Comment on above: Performed By: #### C DP #### [address] [address] Shearer Helper: Ti Willis MD Eosinophils/100 WBC (Bld) 1 % Normal 1-4 [facility] Comment on above: Performed By: #### C DP #### [address] [address] Shearer Helper: Ti Willis MD Immature granulocytes/100 WBC (Bld) 1 % High 0 [facility] Comment on above: Performed By: #### C DP #### [address] [address] Shearer Helper: Ti Willis MD Lymphocytes (Bld) [#/Vol] 1.43 10*3/uL Normal 1.10-3.70 [facility] Comment on above: Performed By: #### C DP #### [address] [address] Shearer Helper: Ti Willis MD Lymphocytes/100 WBC (Bld) 15 % Low 24-43 [facility] Comment on above: Performed By: #### C DP #### [address] [address] Shearer Helper: Ti Willis MD Monocytes (Bld) [#/Vol] 0.95 10*3/uL Normal 0.10-1.20 [facility] Comment on above: Performed By: #### C DP #### [address] [address] Shearer Helper: Ti Willis MD Monocytes/100 WBC (Bld) 10 % Normal 3-12 [facility] Comment on above: Performed By: #### C DP #### [address] [address] Shearer Helper: Ti Willis MD Morphology Juni (Bld) [Interp] ANISOCYTOSIS PRESENT Normal [facility] Comment on above: Result Comment: MACR OCYTOSIS PRESENT Performed By: #### C DP #### [address] [address] Shearer Helper: Ti Willis MD Neutrophil (Seg) 73 % High 36-65 [facility] Comment on above: Performed By: #### C DP #### [address] [address] Shearer Helper: Ti Willis MD Erythrocyte distribution width (RBC) [Ratio] 18.4 % High 11.8-14.4 [facility] Comment on above: Performed By: #### C DP #### [address] [address] Shearer Helper: Ti Willis MD Hematocrit (Bld) [Volume fraction] 26.4 % Low 36.3-47.1 [facility] Comment on above: Performed By: #### C DP #### [address] [address] Shearer Helper: Ti Willis MD Hemoglobin (Bld) [Mass/Vol] 8.5 g/dL Low 11.9-15.1 [facility] Comment on above: Performed By: #### C DP #### [address] [address] Shearer Helper: Ti Willis MD MCH (RBC) [Entitic mass] 40.3 pg High 25.2-33.5 [facility] Comment on above: Performed By: #### C DP #### [address] [address] Shearer Helper: Ti Willis MD MCHC (RBC) [Mass/Vol] 32.2 g/dL Normal 28.4-34.8 [facility] Comment on above: Performed By: #### C DP #### [address] [address] Shearer Helper: Ti Willis MD MCV (RBC) [Entitic vol] 125.1 fL High 82.6-102.9 [facility] Comment on above: Performed By: #### C DP #### [address] [address] Shearer Helper: Ti Willis MD NRBC Automated 0.0 per 100 WBC Normal 0.0 [facility] Comment on above: Performed By: #### C DP #### [address] [address] Shearer Helper: Ti Willis MD Platelet mean volume (Bld) [Entitic vol] 10.6 fL Normal 8.1-13.5 [facility] Comment on above: Performed By: #### C DP #### [address] [address] Shearer Helper: Ti Willis MD Platelets (Bld) [#/Vol] 454 10*3/uL High 138-453 [facility] Comment on above: Performed By: #### C DP #### [address] [address] Shearer Helper: Ti Willis MD RBC (Bld) [#/Vol] 2.11 10*6/uL Low 3.95-5.11 [facility] Comment on above: Performed By: #### C DP #### [address] [address] Shearer Helper: Ti Willis MD WBC (Bld) [#/Vol] 9.5 10*3/uL Normal 3.5-11.3 [facility] Comment on above: Performed By: #### C DP #### [address] [address] Shearer Helper: Ti Willis MD B12/Folate Panelon Cobalamin (Vitamin B12) [Mass/Vol] 295 pg/mL Normal 232-1245 [facility] Comment on above: Performed By: #### W BK, WBCL, CVHH, WBNA, ABG, LACTIC, IOCAL, GLUO #### [address] [address] Shearer Helper: Ti Willis MD Folic Acid 5.6 ng/mL Normal >4.8 [facility] Comment on above: Performed By: #### W BK, WBCL, CVHH, WBNA, ABG, LACTIC, IOCAL, GLUO #### [address] [address] Shearer Helper: Ti Willis MD CBC with Diffon 7 Abs. Basophil 0.00 k/uL Normal 0.00-0.20 [facility] Comment on above: Performed By: #### W BK, WBCL, CVHH, WBNA, ABG, LACTIC, IOCAL, GLUO #### [facility] [address] [place] [address] Shearer Helper: Ti Willis MD Abs.Imm.Granulocyte 0.11 k/uL Normal 0.00-0.30 [facility] Comment on above: Performed By: #### W BK, WBCL, CVHH, WBNA, ABG, LACTIC, IOCAL, GLUO #### [facility] [address] [place] [address] Shearer Helper: Ti Wilils MD Abs.Neutrophil (Seg) 8.96 k/uL High 1.50-8.10 [facility] Comment on above: Performed By: #### W BK, WBCL, CVHH, WBNA, ABG, LACTIC, IOCAL, GLUO #### [address] [address] Shearer Helper: Ti Willis MD Basophils/100 WBC (Bld) 0 % Normal 0-2 [facility] Comment on above: Performed By: #### W BK, WBCL, CVHH, WBNA, ABG, LACTIC, IOCAL, GLUO #### [place] [address] Shearer Helper: Ti Willis MD Eosinophils (Bld) [#/Vol] 0.11 10*3/uL Normal 0.00-0.44 [facility] Comment on above: Performed By: #### W BK, WBCL, CVHH, WBNA, ABG, LACTIC, IOCAL, GLUO #### [place] [address] Shearer Helper: Ti Willis MD Eosinophils/100 WBC (Bld) 1 % Normal 1-4 [facility] Comment on above: Performed By: #### W BK, WBCL, CVHH, WBNA, ABG, LACTIC, IOCAL, GLUO #### [address] [address] Shearer Helper: Ti Willis MD Immature granulocytes/100 WBC (Bld) 1 % High 0 [facility] Comment on above: Performed By: #### W BK, WBCL, CVHH, WBNA, ABG, LACTIC, IOCAL, GLUO #### [address] [address] Shearer Helper: Ti Willis MD Lymphocytes (Bld) [#/Vol] 1.12 10*3/uL Normal 1.10-3.70 [facility] Comment on above: Performed By: #### W BK, WBCL, CVHH, WBNA, ABG, LACTIC, IOCAL, GLUO #### [address] [address] Shearer Helper: Ti Willis MD Lymphocytes/100 WBC (Bld) 10 % Low 24-43 [facility] Comment on above: Performed By: #### W BK, WBCL, CVHH, WBNA, ABG, LACTIC, IOCAL, GLUO #### [address] [address] Shearer Helper: Ti Willis MD Monocytes (Bld) [#/Vol] 0.90 10*3/uL Normal 0.10-1.20 [facility] Comment on above: Performed By: #### W BK, WBCL, CVHH, WBNA, ABG, LACTIC, IOCAL, GLUO #### [address] [address] Shearer Helper: Ti Willis MD Monocytes/100 WBC (Bld) 8 % Normal 3-12 [facility] Comment on above: Performed By: #### W BK, WBCL, CVHH, WBNA, ABG, LACTIC, IOCAL, GLUO #### [address] [address] Shearer Helper: Ti Willis MD Morphology Juni (Bld) [Interp] ANISOCYTOSIS PRESENT Normal [facility] Comment on above: Result Comment: MACR OCYTOSIS PRESENT Performed By: #### W BK, WBCL, CVHH, WBNA, ABG, LACTIC, IOCAL, GLUO #### [address] [address] Shearer Helper: Ti Willis MD Neutrophil (Seg) 80 % High 36-65 [facility] Comment on above: Performed By: #### W BK, WBCL, CVHH, WBNA, ABG, LACTIC, IOCAL, GLUO #### [address] [phone] Shearer Helper: Ti Willis MD Erythrocyte distribution width (RBC) [Ratio] 18.4 % High 11.8-14.4 [facility] Comment on above: Performed By: #### W BK, WBCL, CVHH, WBNA, ABG, LACTIC, IOCAL, GLUO #### [address] [phone] Shearer Helper: Ti Willis MD Hematocrit (Bld) [Volume fraction] 24.4 % Low 36.3-47.1 [facility] Comment on above: Performed By: #### W BK, WBCL, CVHH, WBNA, ABG, LACTIC, IOCAL, GLUO #### [address] [phone] Shearer Helper: Ti Willis MD Hemoglobin (Bld) [Mass/Vol] 7.9 g/dL Low 11.9-15.1 [facility] Comment on above: Performed By: #### W BK, WBCL, CVHH, WBNA, ABG, LACTIC, IOCAL, GLUO #### [place] [address] Shearer Helper: Ti Willis MD MCH (RBC) [Entitic mass] 40.5 pg High 25.2-33.5 [facility] Comment on above: Performed By: #### W BK, WBCL, CVHH, WBNA, ABG, LACTIC, IOCAL, GLUO #### [address] [phone] Shearer Helper: Ti Willis MD MCHC (RBC) [Mass/Vol] 32.4 g/dL Normal 28.4-34.8 [facility] Comment on above: Performed By: #### W BK, WBCL, CVHH, WBNA, ABG, LACTIC, IOCAL, GLUO #### [address] [address] Shearer Helper: Ti Willis MD MCV (RBC) [Entitic vol] 125.1 fL High 82.6-102.9 [facility] Comment on above: Performed By: #### W BK, WBCL, CVHH, WBNA, ABG, LACTIC, IOCAL, GLUO #### [address] [address] Shearer Helper: Ti Willis MD NRBC Automated 0.0 per 100 WBC Normal 0.0 [facility] Comment on above: Performed By: #### W BK, WBCL, CVHH, WBNA, ABG, LACTIC, IOCAL, GLUO #### [place] [address] Shearer Helper: Ti Willis MD Platelet mean volume (Bld) [Entitic vol] 10.7 fL Normal 8.1-13.5 [facility] Comment on above: Performed By: #### W BK, WBCL, CVHH, WBNA, ABG, LACTIC, IOCAL, GLUO #### [address] [address] Shearer Helper: Ti Willis MD Platelets (Bld) [#/Vol] 366 10*3/uL Normal 138-453 [facility] Comment on above: Performed By: #### W BK, WBCL, CVHH, WBNA, ABG, LACTIC, IOCAL, GLUO #### [address] [address] Shearer Helper: Ti Willis MD RBC (Bld) [#/Vol] 1.95 10*6/uL Low 3.95-5.11 [facility] Comment on above: Performed By: #### W BK, WBCL, CVHH, WBNA, ABG, LACTIC, IOCAL, GLUO #### [address] [address] Shearer Helper: Ti Willis MD WBC (Bld) [#/Vol] 11.2 10*3/uL Normal 3.5-11.3 [facility] Comment on above: Performed By: #### W BK, WBCL, CVHH, WBNA, ABG, LACTIC, IOCAL, GLUO #### [address] [address] Shearer Helper: Ti Willis MD TSH w/reflex to FT4on 2023 Thyroid Stim. Horm. 3.24 uIU/mL Normal 0.30-5.00 [facility] Comment on above: Performed By: #### C DP #### [address] [address] Shearer Helper: Ti Willis MD Basic Metab w/rfx MGon 12-20 Anion gap [Moles/Vol] 10 mmol/L Normal 9-17 [facility] Comment on above: Performed By: #### C DP #### [address] [address] Shearer Helper: Ti Willis MD Calcium [Mass/Vol] 8.0 mg/dL Low 8.6-10.4 [facility] Comment on above: Performed By: #### C DP #### [address] [address] Shearer Helper: Ti Willis MD Chloride [Moles/Vol] 100 mmol/L Normal 98-107 [facility] Comment on above: Performed By: #### C DP #### [address] [address] Shearer Helper: Ti Willis MD CO2 [Moles/Vol] 25 mmol/L Normal 20-31 [facility] Comment on above: Performed By: #### C DP #### [address] [address] Shearer Helper: Ti Willis MD Creatinine [Mass/Vol] 0.7 mg/dL Normal 0.5-0.9 [facility] Comment on above: Performed By: #### C DP #### [address] [address] Shearer Helper: Ti Willis MD GFR/1.73 sq M.predicted among non-blacks MDRD (S/P/Bld) [Vol rate/Area] mL/min/{1.73_m2} Normal >60 [facility] Comment on above: Result Comment: These results [...] secretion. Performed By: #### C DP #### [address] [address] Shearer Helper: Ti Willis MD Glucose [Mass/Vol] 104 mg/dL High 70-99 [facility] Comment on above: Performed By: #### C DP #### [address] [address] Shearer Helper: Ti Willis MD Potassium [Moles/Vol] 4.1 mmol/L Normal 3.7-5.3 [facility] Comment on above: Performed By: #### C DP #### [address] [address] Shearer Helper: Ti Willis MD Sodium [Moles/Vol] 135 mmol/L Normal 135-144 [facility] Comment on above: Performed By: #### C DP #### [address] [address] Shearer Helper: Ti Willis MD Urea nitrogen [Mass/Vol] 21 mg/dL Normal 8-23 [facility] Comment on above: Performed By: #### C DP #### [address] [address] Shearer Helper: Ti Willis MD CBCon 12-20-2023 Erythrocyte distribution width (RBC) [Ratio] 18.5 % High 11.8-14.4 [facility] Comment on above: Performed By: #### C DP #### [address] [address] Shearer Helper: Ti Willis MD Hematocrit (Bld) [Volume fraction] 24.4 % Low 36.3-47.1 [facility] Comment on above: Performed By: #### C DP #### [address] [address] Shearer Helper: Ti Willis MD Hemoglobin (Bld) [Mass/Vol] 8.1 g/dL Low 11.9-15.1 [facility] Comment on above: Performed By: #### C DP #### [address] [address] Shearer Helper: Ti Willis MD MCH (RBC) [Entitic mass] 40.7 pg High 25.2-33.5 [facility] Comment on above: Performed By: #### C DP #### [address] [address] Shearer Helper: Ti Willis MD MCHC (RBC) [Mass/Vol] 33.2 g/dL Normal 28.4-34.8 [facility] Comment on above: Performed By: #### C DP #### [address] [address] Shearer Helper: Ti Willis MD MCV (RBC) [Entitic vol] 122.6 fL High 82.6-102.9 [facility] Comment on above: Performed By: #### C DP #### [address] [address] Shearer Helper: Ti Willis MD NRBC Automated 0.0 per 100 WBC Normal 0.0 [facility] Comment on above: Performed By: #### C DP #### [address] [address] Shearer Helper: Ti Willis MD Platelet mean volume (Bld) [Entitic vol] 10.6 fL Normal 8.1-13.5 [facility] Comment on above: Performed By: #### C DP #### [address] [address] Shearer Helper: Ti Willis MD Platelets (Bld) [#/Vol] 356 10*3/uL Normal 138-453 [facility] Comment on above: Performed By: #### C DP #### [address] [address] Shearer Helper: Ti Willis MD RBC (Bld) [#/Vol] 1.99 10*6/uL Low 3.95-5.11 [facility] Comment on above: Performed By: #### C DP #### [address] [address] Shearer Helper: Ti Willis MD WBC (Bld) [#/Vol] 10.3 10*3/uL Normal 3.5-11.3 [facility] Comment on above: Performed By: #### C DP #### [address] [address] Shearer Helper: Ti Willis MD Cult,Urineon 12-19-2023 Cult,Urine Specimen [...] Tobramycin <=1 SUSCEPTIBLE Trimethoprim/Sulfa <=20 SUSCEPTIBLE Susceptible [facility] Comment on above: Performed By: #### C DP #### [facility] [address] [place], [place] [phone] Shearer Helper: Ti Willis MD OPERATIVE REPORTon OPERATIVE REPORT [address] [address] OPERATIVE REPORT PATIENT NAME: JOSEFA CASTILLO : 1940 MED REC NO: [id number] ROOM: 0235 ACCOUNT NO: [id number] ADMIT DATE: 12/15/2023 PROVIDER: Aristeo George DATE OF PROCEDURE: 12/17/2023 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 POSTOPERATIVE DIAGNOSIS: Failed hardware left proximal femur. PROCEDURE: Conversion of prior hip surgery to left total hip arthroplasty. SURGEON: Aristeo George DO DOUGHMAKER: Edgar Middleton MD, PGY-2, MD, PGY-4, and [...] 0 PDS, deep dermal layers with 2-0 [place] (more content not included)... Normal [facility] Arterial Blood Gaseson 12-17 Ellis Test INFORMATION NOT PROVIDED Normal [facility] Comment on above: Performed By: #### W BK, WBCL, CVHH, WBNA, ABG, LACTIC, IOCAL, GLUO #### [facility] [address] [place], [place] [id number] Shearer Helper: Ti Willis MD Body Temp. 36.0 Normal [facility] Comment on above: Performed By: #### W BK, WBCL, CVHH, WBNA, ABG, LACTIC, IOCAL, GLUO #### [facility] [address] [place], [place] [phone] Shearer Helper: Ti Willis MD Carboxy Hgb 1.1 % Normal 0-5 [facility] Comment on above: Result Comment: Reference Range: Non-Smokers 0-2% Average Smoker 2-4% Heavy Smoker <10% Performed By: #### W BK, WBCL, CVHH, WBNA, ABG, LACTIC, IOCAL, GLUO #### [address] [address] Shearer Helper: Ti Willis MD FIO2 60 Normal [facility] Comment on above: Performed By: #### W BK, WBCL, CVHH, WBNA, ABG, LACTIC, IOCAL, GLUO #### [address] [address] Shearer Helper: Ti Willis MD HCO3 (Bld) [Moles/Vol] 23.4 mmol/L Normal 22-27 [facility] Comment on above: Performed By: #### W BK, WBCL, CVHH, WBNA, ABG, LACTIC, IOCAL, GLUO #### [address] [address] Shearer Helper: Ti Willis MD Negative Base Excess 0.3 mmol/L Normal 0.0-2.0 [facility] Comment on above: Performed By: #### W BK, WBCL, CVHH, WBNA, ABG, LACTIC, IOCAL, GLUO #### [address] [address] Shearer Helper: Ti Willis MD Oxygen (Bld) [Partial pressure] 237.0 mm[Hg] High 75-95 [facility] Comment on above: Performed By: #### W BK, WBCL, CVHH, WBNA, ABG, LACTIC, IOCAL, GLUO #### [address] [address] Shearer Helper: Ti Willis MD Oxygen saturation in Blood 98.3 % Normal 94-100 [facility] Comment on above: Performed By: #### W BK, WBCL, CVHH, WBNA, ABG, LACTIC, IOCAL, GLUO #### [address] [address] Shearer Helper: Ti Willis MD pCO2 36.8 mmHg Normal 32-45 [facility] Comment on above: Performed By: #### W BK, WBCL, CVHH, WBNA, ABG, LACTIC, IOCAL, GLUO #### [address] [address] Shearer Helper: Ti Willis MD pH (Bld) 7.418 [pH] Normal 7.350-7.450 [facility] Comment on above: Performed By: #### W BK, WBCL, CVHH, WBNA, ABG, LACTIC, IOCAL, GLUO #### [address] [address] Shearer Helper: Ti Willis MD CV Hgb/Hcton 2 Hematocrit (Bld) [Volume fraction] 35.4 % Low 36.3-47.1 [facility] Comment on above: Performed By: #### W BK, WBCL, CVHH, WBNA, ABG, LACTIC, IOCAL, GLUO #### [address] [address] Shearer Helper: Ti Willis MD Hemoglobin (Bld) [Mass/Vol] 11.5 g/dL Low 11.9-15.1 [facility] Comment on above: Performed By: #### W BK, WBCL, CVHH, WBNA, ABG, LACTIC, IOCAL, GLUO #### [address] [address] Shearer Helper: Ti Willis MD Calcium, Ionicon 12-17-2023 Calcium [Moles/Vol] 1.14 mmol/L Normal 1.13-1.33 [facility] Comment on above: Performed By: #### W BK, WBCL, CVHH, WBNA, ABG, LACTIC, IOCAL, GLUO #### [facility] [address] [place] [address] Shearer Helper: Ti Willis MD Chloride - Whole Blon 2023 Chloride [Moles/Vol] 106 mmol/L Normal 98-110 [facility] Comment on above: Performed By: #### W BK, WBCL, CVHH, WBNA, ABG, LACTIC, IOCAL, GLUO #### [facility] [address] [place] [address] Shearer Helper: Ti Willis MD FLUORO FOR SURGICAL PROCEDUR ESon 12-17-2023 FLUORO FOR SURGICAL PROCEDURES Radiology exam is complete. No Radiologist dictation. Please follow up with ordering provider. Final result Normal [facility] Glucose,Whole Bloodon 2023 Glucose [Mass/Vol] 101 mg/dL Normal 65-105 [facility] Comment on above: Performed By: #### W BK, WBCL, CVHH, WBNA, ABG, LACTIC, IOCAL, GLUO #### [facility] [address] [place] [address] Shearer Helper: Ti Willis MD Lactic Acidon 12-17-2023 Lactic Acid,Whole Bl 2.2 mmol/L High 0.7-2.1 [facility] Comment on above: Performed By: #### W BK, WBCL, CVHH, WBNA, ABG, LACTIC, IOCAL, GLUO #### [facility] [address] [place] [address] [id number] Shearer Helper: Ti Willis MD Potassium - Whole Blon 12-17 Potassium [Moles/Vol] 3.3 mmol/L Low 3.6-5.0 [facility] Comment on above: Performed By: #### W BK, WBCL, CVHH, WBNA, ABG, LACTIC, IOCAL, GLUO #### [facility] [address] [place] [address] Shearer Helper: Ti Willis MD Sodium - Whole Bloodon 12-17 Sodium [Moles/Vol] 137 mmol/L Normal 136-145 [facility] Comment on above: Performed By: #### W BK, WBCL, CVHH, WBNA, ABG, LACTIC, IOCAL, GLUO #### [facility] [address] [place] [address] Shearer Helper: Ti Willis MD Type + Screenon 12-17-2023 Type + Screen Sample Expiration 12/20/2023,2359 Arm Band Number [id number] ABO/Rh(D) A POSITIVE Antibody Screen NEGATIVE Unit Number [id number] Blood Component Type Leukocyte Reduced Red Cell Unit Division 00 Status of Unit REL FROM ALLOC Transfusion Status OK TO TRANSFUSE Crossmatch Result COMPATIBLE Unit Number [id number] Blood Component Type Leukocyte Reduced Red Cell Unit Division 00 Status of Unit REL FROM ALLOC Transfusion Status OK TO TRANSFUSE Crossmatch Result COMPATIBLE Normal [facility] Comment on above: Performed By: #### C DP #### [facility] [address] [place] [address] Shearer Helper: Ti Willis MD XR HIP 2-3 VW [...] Magana IV, MD 12/17/23 Final result Normal [facility] CBC with Diffon 12-16-2023 Abs. Basophil 0.05 k/uL Normal 0.00-0.20 [facility] Comment on above: Performed By: #### C DP #### [address] [address] Shearer Helper: Ti Willis MD Abs.Imm.Granulocyte 0.00 k/uL Normal 0.00-0.30 [facility] Comment on above: Performed By: #### C DP #### [place] [address] Shearer Helper: Ti Willis MD Abs.Neutrophil (Seg) 2.52 k/uL Normal 1.50-8.10 [facility] Comment on above: Performed By: #### C DP #### [place] [address] Shearer Helper: Ti Willis MD Basophils/100 WBC (Bld) 1 % Normal 0-2 [facility] Comment on above: Performed By: #### C DP #### [address] [address] Shearer Helper: Ti Willis MD Eosinophils (Bld) [#/Vol] 0.09 10*3/uL Normal 0.00-0.44 [facility] Comment on above: Performed By: #### C DP #### [address] [address] Shearer Helper: Ti Willis MD Eosinophils/100 WBC (Bld) 2 % Normal 1-4 [facility] Comment on above: Performed By: #### C DP #### [address] [address] Shearer Helper: Ti Willis MD Immature granulocytes/100 WBC (Bld) 0 % Normal 0 [facility] Comment on above: Performed By: #### C DP #### [address] [address] Shearer Helper: Ti Willis MD Lymphocytes (Bld) [#/Vol] 1.43 10*3/uL Normal 1.10-3.70 [facility] Comment on above: Performed By: #### C DP #### [address] [address] Shearer Helper: Ti Willis MD Lymphocytes/100 WBC (Bld) 31 % Normal 24-43 [facility] Comment on above: Performed By: #### C DP #### [address] [address] Shearer Helper: Ti Willis MD Monocytes (Bld) [#/Vol] 0.51 10*3/uL Normal 0.10-1.20 [facility] Comment on above: Performed By: #### C DP #### [address] [address] Shearer Helper: Ti Willis MD Monocytes/100 WBC (Bld) 11 % Normal 3-12 [facility] Comment on above: Performed By: #### C DP #### [address] [address] Shearer Helper: Ti Willis MD Morphology Juni (Bld) [Interp] ANISOCYTOSIS PRESENT Normal [facility] Comment on above: Result Comment: MACR OCYTOSIS PRESENT Performed By: #### C DP #### [address] [address] Shearer Helper: Ti Willis MD Neutrophil (Seg) 55 % Normal 36-65 [facility] Comment on above: Performed By: #### C DP #### [address] [address] Shearer Helper: Ti Willis MD Erythrocyte distribution width (RBC) [Ratio] 19.2 % High 11.8-14.4 [facility] Comment on above: Performed By: #### C DP #### [address] [address] Shearer Helper: Ti Willis MD Hematocrit (Bld) [Volume fraction] 36.2 % Low 36.3-47.1 [facility] Comment on above: Performed By: #### C DP #### [address] [address] Shearer Helper: Ti Willis MD Hemoglobin (Bld) [Mass/Vol] 11.9 g/dL Normal 11.9-15.1 [facility] Comment on above: Performed By: #### C DP #### [address] [address] Shearer Helper: Ti Willis MD MCH (RBC) [Entitic mass] 39.5 pg High 25.2-33.5 [facility] Comment on above: Performed By: #### C DP #### [address] [address] Shearer Helper: Ti Willis MD MCHC (RBC) [Mass/Vol] 32.9 g/dL Normal 28.4-34.8 [facility] Comment on above: Performed By: #### C DP #### [address] [address] Shearer Helper: Ti Willis MD MCV (RBC) [Entitic vol] 120.3 fL High 82.6-102.9 [facility] Comment on above: Performed By: #### C DP #### [address] [address] Shearer Helper: Ti Willis MD NRBC Automated 0.0 per 100 WBC Normal 0.0 [facility] Comment on above: Performed By: #### C DP #### [address] [address] Shearer Helper: Ti Willis MD Platelet mean volume (Bld) [Entitic vol] 10.1 fL Normal 8.1-13.5 [facility] Comment on above: Performed By: #### C DP #### [address] [address] Shearer Helper: Ti Willis MD Platelets (Bld) [#/Vol] 361 10*3/uL Normal 138-453 [facility] Comment on above: Performed By: #### C DP #### [address] [address] Shearer Helper: Ti Willis MD RBC (Bld) [#/Vol] 3.01 10*6/uL Low 3.95-5.11 [facility] Comment on above: Performed By: #### C DP #### [address] [address] Shearer Helper: Ti Willis MD WBC (Bld) [#/Vol] 4.6 10*3/uL Normal 3.5-11.3 [facility] Comment on above: Performed By: #### C DP #### [address] [address] Shearer Helper: Ti Willis MD Basic Metabolic Profon 12-15 Anion gap [Moles/Vol] 12 mmol/L Normal 9-17 [facility] Comment on above: Performed By: #### C DP #### [address] [address] Shearer Helper: Ti Willis MD Calcium [Mass/Vol] 9.0 mg/dL Normal 8.6-10.4 [facility] Comment on above: Performed By: #### C DP #### [address] [address] Shearer Helper: Ti Willis MD Chloride [Moles/Vol] 100 mmol/L Normal 98-107 [facility] Comment on above: Performed By: #### C DP #### [address] [address] Shearer Helper: Ti Willis MD CO2 [Moles/Vol] 24 mmol/L Normal 20-31 [facility] Comment on above: Performed By: #### C DP #### [address] [address] Shearer Helper: Ti Willis MD Creatinine [Mass/Vol] 0.6 mg/dL Normal 0.5-0.9 [facility] Comment on above: Performed By: #### C DP #### [address] [address] Shearer Helper: Ti Willis MD GFR/1.73 sq M.predicted among non-blacks MDRD (S/P/Bld) [Vol rate/Area] mL/min/{1.73_m2} Normal >60 [facility] Comment on above: Result Comment: These results [...] secretion. Performed By: #### C DP #### [address] [address] Shearer Helper: Ti Willis MD Glucose [Mass/Vol] 88 mg/dL Normal 70-99 [facility] Comment on above: Performed By: #### C DP #### [address] [address] Shearer Helper: Ti Willis MD Potassium [Moles/Vol] 4.0 mmol/L Normal 3.7-5.3 [facility] Comment on above: Performed By: #### C DP #### [address] [address] Shearer Helper: Ti Willis MD Sodium [Moles/Vol] 136 mmol/L Normal 135-144 [facility] Comment on above: Performed By: #### C DP #### [address] [address] Shearer Helper: Ti Willis MD Urea nitrogen [Mass/Vol] 10 mg/dL Normal 8-23 [facility] Comment on above: Performed By: #### C DP #### [place] [address] Shearer Helper: Ti Willis MD CBC with Diffon 12-15-2023 Abs. Basophil 0.12 k/uL Normal 0.0-0.2 [facility] Comment on above: Performed By: #### C DP #### [address] [address] Shearer Helper: Ti Willis MD Abs.Imm.Granulocyte 0.00 k/uL Normal 0.00-0.30 [facility] Comment on above: Performed By: #### C DP #### [place] [address] Shearer Helper: Ti Willis MD Abs.Neutrophil (Seg) 3.85 k/uL Normal 1.8-7.7 [facility] Comment on above: Performed By: #### C DP #### [address] [address] Shearer Helper: Ti Willis MD Basophils/100 WBC (Bld) 2 % Normal 0-2 [facility] Comment on above: Performed By: #### C DP #### [address] [address] Shearer Helper: Ti Willis MD Eosinophils (Bld) [#/Vol] 0.12 10*3/uL Normal 0.0-0.4 [facility] Comment on above: Performed By: #### C DP #### [address] [address] Shearer Helper: Ti Willis MD Eosinophils/100 WBC (Bld) 2 % Normal 1-4 [facility] Comment on above: Performed By: #### C DP #### [address] [address] Shearer Helper: Ti Willis MD Immature granulocytes/100 WBC (Bld) 0 % Normal 0 [facility] Comment on above: Performed By: #### C DP #### [address] [address] Shearer Helper: Ti Willis MD Lymphocytes (Bld) [#/Vol] 1.49 10*3/uL Normal 1.0-4.8 [facility] Comment on above: Performed By: #### C DP #### [address] [address] Shearer Helper: Ti Willis MD Lymphocytes/100 WBC (Bld) 24 % Normal 24-44 [facility] Comment on above: Performed By: #### C DP #### [address] [address] Shearer Helper: Ti Willis MD Monocytes (Bld) [#/Vol] 0.62 10*3/uL Normal 0.1-0.8 [facility] Comment on above: Performed By: #### C DP #### [address] [address] Shearer Helper: Ti Willis MD Monocytes/100 WBC (Bld) 10 % High 1-7 [facility] Comment on above: Performed By: #### C DP #### [address] [address] Shearer Helper: Ti Willis MD Morphology Juni (Bld) [Interp] ANISOCYTOSIS PRESENT Normal [facility] Comment on above: Result Comment: MACR OCYTOSIS PRESENT Performed By: #### C DP #### [address] [address] Shearer Helper: Ti Willis MD Neutrophil (Seg) 62 % Normal 36-66 [facility] Comment on above: Performed By: #### C DP #### [address] [address] Shearer Helper: Ti Willis MD Erythrocyte distribution width (RBC) [Ratio] 18.8 % High 11.8-14.4 [facility] Comment on above: Performed By: #### C DP #### [address] [address] Shearer Helper: Ti Willis MD Hematocrit (Bld) [Volume fraction] 41.1 % Normal 36.3-47.1 [facility] Comment on above: Performed By: #### C DP #### [address] [address] Shearer Helper: Ti Willis MD Hemoglobin (Bld) [Mass/Vol] 13.9 g/dL Normal 11.9-15.1 [facility] Comment on above: Performed By: #### C DP #### [address] [address] Shearer Helper: Ti Willis MD MCH (RBC) [Entitic mass] 40.5 pg High 25.2-33.5 [facility] Comment on above: Performed By: #### C DP #### [address] [address] Shearer Helper: Ti Willis MD MCHC (RBC) [Mass/Vol] 33.8 g/dL Normal 28.4-34.8 [facility] Comment on above: Performed By: #### C DP #### [address] [address] Shearer Helper: Ti Willis MD MCV (RBC) [Entitic vol] 119.8 fL High 82.6-102.9 [facility] Comment on above: Performed By: #### C DP #### [address] [address] Shearer Helper: Ti Willis MD NRBC Automated 0.0 per 100 WBC Normal 0.0 [facility] Comment on above: Performed By: #### C DP #### [address] [address] Shearer Helper: Ti Willis MD Platelet mean volume (Bld) [Entitic vol] 9.7 fL Normal 8.1-13.5 [facility] Comment on above: Performed By: #### C DP #### [address] [address] Shearer Helper: Ti Willis MD Platelets (Bld) [#/Vol] 426 10*3/uL Normal 138-453 [facility] Comment on above: Performed By: #### C DP #### [address] [address] Shearer Helper: Ti Willis MD RBC (Bld) [#/Vol] 3.43 10*6/uL Low 3.95-5.11 [facility] Comment on above: Performed By: #### C DP #### [address] [address] Shearer Helper: Ti Willis MD WBC (Bld) [#/Vol] 6.2 10*3/uL Normal 3.5-11.3 [facility] Comment on above: Performed By: #### C DP #### [address] [address] Shearer Helper: Ti Willis MD PTon 12-15-2023 INR Coag (PPP) [Relative time] 1.1 {INR} Normal [facility] Comment on above: Result Comment: Therapeutic Range: Moderate Anticoagulant Intensity: INR = 2.0-3.0 High Anticoagulant Intensity: INR = 2.5-3.5 Performed By: #### C DP #### [address] [address] Shearer Helper: Ti Willis MD PT Coag (PPP) [Time] 13.6 s Normal 11.7-14.9 [facility] Comment on above: Performed By: #### C DP #### [address] [address] Shearer Helper: Ti Willis MD Vitamin D 25 OHon 12-15-2023 Vitamin D 25 OH 14.1 ng/mL Low >29.9 [facility] Comment on above: Result Comment: Reference Range: Vitamin D status Range Deficiency <20 ng/mL Mild Deficiency 20-30 ng/mL Sufficiency 30-100 ng/mL Toxicity >100 ng/mL Performed By: #### C DP #### [address] [address] Shearer Helper: Ti Willis MD XR FEMUR LEFT (MIN [...] Africa Colin MD 12/15/23 Final result Normal [facility] CBC W Auto Differential pane l (Bld)on 07-29-2023 Basophils (Bld) [#/Vol] 0.07 10*3/uL Normal <0.11 [facility] Comment on above: Order Comment: Speci men Type: BLOOD SPECIMEN Ordering Facility: [facility] Address: [address] [address] Performed By: #### 5 7021-8 #### [facility] CLIA [id number] [address] [place] [address] Basophils/100 WBC (Bld) 0.9 % Normal [facility] Comment on above: Order Comment: Speci men Type: BLOOD SPECIMEN Ordering Facility: [facility] Address: [address] [address] Performed By: #### 5 7021-8 #### [facility] CLIA [id number] [address] [place] [address] Differential cell count method Nom (Bld) Auto Normal [facility] Comment on above: Order Comment: Speci men Type: BLOOD SPECIMEN Ordering Facility: [facility] Address: [address] [address] Performed By: #### 5 7021-8 #### [facility] CLIA [id number] [address] [place] [address] Eosinophils (Bld) [#/Vol] 0.12 10*3/uL Normal <0.46 [facility] Comment on above: Order Comment: Speci men Type: BLOOD SPECIMEN Ordering Facility: [facility] Address: [address] [address] Performed By: #### 5 7021-8 #### [facility] CLIA [id number] [address] [place] [address] Eosinophils/100 WBC (Bld) 1.6 % Normal [facility] Comment on above: Order Comment: Speci men Type: BLOOD SPECIMEN Ordering Facility: [facility] Address: [address] [address] Performed By: #### 5 7021-8 #### [facility] CLIA [id number] [address] [place] [address] Erythrocyte distribution width (RBC) [Ratio] 14.0 % Normal 11.5-15.0 [facility] Comment on above: Order Comment: Speci men Type: BLOOD SPECIMEN Ordering Facility: [facility] Address: [address] [address] Performed By: #### 5 7021-8 #### [facility] CLIA [id number] [address] [place] [address] Hematocrit (Bld) [Volume fraction] 41.4 % Normal 36.0-46.0 [facility] Comment on above: Order Comment: Speci men Type: BLOOD SPECIMEN Ordering Facility: [facility] Address: [address] [address] Performed By: #### 5 7021-8 #### [facility] CLIA [id number] [address] [place] [address] Hemoglobin (Bld) [Mass/Vol] 13.6 g/dL Normal 11.5-15.5 [facility] Comment on above: Order Comment: Speci men Type: BLOOD SPECIMEN Ordering Facility: [facility] Address: [address] [address] Performed By: #### 5 7021-8 #### [facility] CLIA [id number] [address] [place] [address] Immature granulocytes (Bld) [#/Vol] 0.03 10*3/uL Normal <0.10 [facility] Comment on above: Order Comment: Speci men Type: BLOOD SPECIMEN Ordering Facility: [facility] Address: [address] [address] Performed By: #### 5 7021-8 #### [facility] CLIA [id number] [address] [place] [address] Immature granulocytes/100 WBC (Bld) 0.4 % Normal [facility] Comment on above: Order Comment: Speci men Type: BLOOD SPECIMEN Ordering Facility: [facility] Address: [address] [address] Performed By: #### 5 7021-8 #### [facility] CLIA [id number] [address] [place] [address] Lymphocytes (Bld) [#/Vol] 1.84 10*3/uL Normal 1.00-4.00 [facility] Comment on above: Order Comment: Speci men Type: BLOOD SPECIMEN Ordering Facility: [facility] Address: [address] [address] Performed By: #### 5 7021-8 #### [facility] CLIA [id number] [address] [place] [address] Lymphocytes/100 WBC (Bld) 24.6 % Normal [facility] Comment on above: Order Comment: Speci men Type: BLOOD SPECIMEN Ordering Facility: [facility] Address: [address] [address] Performed By: #### 5 7021-8 #### [facility] CLIA [id number] [address] [place] [address] MCH (RBC) [Entitic mass] 38.1 pg High 26.0-34.0 [facility] Comment on above: Order Comment: Speci men Type: BLOOD SPECIMEN Ordering Facility: [facility] Address: [address] [address] Performed By: #### 5 7021-8 #### [facility] CLIA [id number] [address] [place] [address] MCHC (RBC) [Mass/Vol] 32.9 g/dL Normal 30.5-36.0 [facility] Comment on above: Order Comment: Speci men Type: BLOOD SPECIMEN Ordering Facility: [facility] Address: [address] [place] [address] Performed By: #### 5 7021-8 #### [facility] CLIA [id number] [address] [place] [address] MCV (RBC) [Entitic vol] 116.0 fL High 80.0-100.0 [facility] Comment on above: Order Comment: Speci men Type: BLOOD SPECIMEN Ordering Facility: [facility] Address: [address] [place] [address] Performed By: #### 5 7021-8 #### [facility] CLIA [id number] [address] [place] [address] Monocytes (Bld) [#/Vol] 0.64 10*3/uL Normal <0.87 [facility] Comment on above: Order Comment: Speci men Type: BLOOD SPECIMEN Ordering Facility: [facility] Address: [address] [place] [address] Performed By: #### 5 7021-8 #### [facility] CLIA [id number] [address] [place] [address] Monocytes/100 WBC (Bld) 8.6 % Normal [facility] Comment on above: Order Comment: Speci men Type: BLOOD SPECIMEN Ordering Facility: [facility] Address: [address] [place] [address] Performed By: #### 5 7021-8 #### [facility] CLIA [id number] [address] [place] [address] Neutrophils (Bld) [#/Vol] 4.77 10*3/uL Normal 1.45-7.50 [facility] Comment on above: Order Comment: Speci men Type: BLOOD SPECIMEN Ordering Facility: [facility] Address: [address] [address] Performed By: #### 5 7021-8 #### [facility] CLIA [id number] [address] [place] [address] Neutrophils/100 WBC (Bld) 63.9 % Normal [facility] Comment on above: Order Comment: Speci men Type: BLOOD SPECIMEN Ordering Facility: [facility] Address: [address] [address] Performed By: #### 5 7021-8 #### [facility] CLIA [id number] [address] [place] [address] Nucleated RBC (Bld) [#/Vol] 10*3/uL Normal <0.01 [facility] Comment on above: Order Comment: Speci men Type: BLOOD SPECIMEN Ordering Facility: [facility] Address: [address] [address] Performed By: #### 5 7021-8 #### [facility] CLIA [id number] [address] [place] [address] Nucleated RBC/100 WBC (Bld) [Ratio] 0.0 /100 WBC Normal [facility] Comment on above: Order Comment: Speci men Type: BLOOD SPECIMEN Ordering Facility: [facility] Address: [address] [address] Performed By: #### 5 7021-8 #### [facility] CLIA [id number] [address] [place] [address] Platelet mean volume (Bld) [Entitic vol] 9.8 fL Normal 9.0-12.7 [facility] Comment on above: Order Comment: Speci men Type: BLOOD SPECIMEN Ordering Facility: [facility] Address: [address] [address] Performed By: #### 5 7021-8 #### [facility] CLIA [id number] [address] [place] [address] Platelets (Bld) [#/Vol] 591 10*3/uL High 150-400 [facility] Comment on above: Order Comment: Speci men Type: BLOOD SPECIMEN Ordering Facility: [facility] Address: [address] [place] [address] Performed By: #### 5 7021-8 #### [facility] CLIA [id number] [address] [place] [address] RBC (Bld) [#/Vol] 3.57 10*6/uL Low 3.90-5.20 [facility] Comment on above: Order Comment: Speci men Type: BLOOD SPECIMEN Ordering Facility: [facility] Address: [address] [place] [address] Performed By: #### 5 7021-8 #### [facility] CLIA [id number] [address] [place] [address] WBC (Bld) [#/Vol] 7.47 10*3/uL Normal 3.70-11.00 [facility] Comment on above: Order Comment: Speci men Type: BLOOD SPECIMEN Ordering Facility: [facility] Address: [address] [place] [address] Performed By: #### 5 7021-8 #### [facility] CLIA [id number] [address] [place] [address] [facility] 07-29-2023 [facility] Nurse Visit (HEMASA) JOSEFA CASTILLO ([id number]) 1940 F Date Time Provider Department 07/29/23 10:30 AM MARTHA DENT During your visit today, we recorded the following information about you: Temperature Pulse Respiration Blood pressure 97 degrees 63/minute 16/minute 175/71 Weight 57.1 kg Kiera Rey Ma 07/29/2023 10:27 AM Signed Patient Identification confirmed: yes. Injection given and documented on DEC per provider order. Kiera Rey Ma Referring Provider: ROD ROMAN [[id number]] Allergies As of Date: 07/29/2023 Noted Allergy [...] vitamin B12 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] Order(s):BCN NURSING COMMUNICATION [[id number]] Order #: [id number]: 1 STANDING BCN NURSING COMMUNICATION [[id number]] Order #: [id number]: 1 STANDING BCN NURSING COMMUNICATION [[id number]] Order #: [id number]: 1 STANDING BCN NURSING COMMUNICATION [[id number]] Order #: [id number]: 1 STANDING BCN NURSING COMMUNICATION [[id number]] Order #: [id number]: 1 STANDING [] cyanocobalamin 1,000 mcg injectionDisp: [...] DEC per provider order. Kiera Rey Ma Prescriptions ordered this encounter Disp Refills Start End CYANOCOBALAMIN ( (more content not included)... Normal [facility] CNOVSPon 07-29-2023 CNOVSP Visit (SP) Office (HEMAS[place]) JOSEFA CASTILLO ([id number]) 1940 F Date Time Provider Department 07/29/23 10:15 AM ROD ROMAN During your visit today, we recorded the following information about you: Temperature Pulse Respiration Blood pressure 97.3 degrees 63/minute 16/minute 175/71 Weight 57 kg Rod Roman MD 08/01/2023 3:49 PM Signed NAME: Josefa Castillo CLINIC NO.: [id number] DATE OF SERVICE: July 29, 2023 (Carlos) Some elements in this clinic note that are critical to medical decision making have been carefully reviewed and included from a prior clinic note dated: April 08, 2023 (Cristóbalmarge) Referring Provider: Tito Hillman MD Additional Clinicians involved in Josefa Castillo's care: CC: Follow up ASSESSMENT: 1. ET: 83 year old woman with essential thrombocythemia. She has been treated with Hydrea since 2001 when she suffered a mini-stroke and was 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 She has been on various dosing through [...] month 3. Basal cell ca of right jain April 2023 PLAN: Labs to include B12 in 8 weeks. Labs every 8 weeks, CBC, CMP Continue current regimen of Hydrea 500 mg daily Wednesday - Wednesday but increase to 2 tablets (1000 mg) on Saturdays and Sundays) B12 Shot today and every 8 weeks. RTC in 16 weeks HPI: Updated Visit, July 29, 2023: Right jain was not a melanoma - basal cell. Labs reviewed and adjusted hydrea on weekends Otherwise is doing very well. Updated Visit, April 08, 2023: Says she's not doing well. Difficulty with vision Need records from right jain melanoma. Continues B12 shots every 8 weeks [...] the left side of head over the jain and into the jaw. No vision changes associated with pain. Intermittent and dull and pounding. Right jain at the corner of her eye lid [...] with hydrea (more content not included)... Normal [facility] Comprehensive metabolic 2000 panelon 07-29-2023 Albumin [Mass/Vol] 4.4 g/dL Normal 3.9-4.9 [facility] Comment on above: Order Comment: Speci men Type: BLOOD SPECIMEN Ordering Facility: [facility] Address: [address] Performed By: #### 2 3-8, 2531-0 #### [facility] CLIA [id number] [address] [place] [address] 95305 ALP [Catalytic activity/Vol] 60 U/L Normal 34-123 [facility] Comment on above: Order Comment: Speci men Type: BLOOD SPECIMEN Ordering Facility: [facility] Address: [address] [address] Performed By: #### 2 8, 2531-0 #### [facility] CLIA [id number] [address] [place] [address] 96683 ALT [Catalytic activity/Vol] 11 U/L Normal 7-38 [facility] Comment on above: Order Comment: Speci men Type: BLOOD SPECIMEN Ordering Facility: [facility] Address: [address] [address] Performed By: #### 2 8, 2531-0 #### [facility] CLIA [id number] [address] [place] [address] 17834 Anion gap [Moles/Vol] 9 mmol/L Normal 9-18 [facility] Comment on above: Order Comment: Speci men Type: BLOOD SPECIMEN Ordering Facility: [facility] Address: [address] [address] Performed By: #### 2 4323-06, 2531-0 #### [facility] CLIA [id number] [address] [place] [address] 11768 AST [Catalytic activity/Vol] 16 U/L Normal 13-35 [facility] Comment on above: Order Comment: Speci men Type: BLOOD SPECIMEN Ordering Facility: [facility] Address: [address] [address] Performed By: #### 2 8, 2531-0 #### [facility] CLIA [id number] [address] [place] [address] Bilirubin [Mass/Vol] 0.5 mg/dL Normal 0.2-1.3 [facility] Comment on above: Order Comment: Speci men Type: BLOOD SPECIMEN Ordering Facility: [facility] Address: [address] [place] [address] Performed By: #### 2 4323-8, 2532-0 #### [facility] CLIA [id number] [address] [place] [address] 30816 Calcium [Mass/Vol] 9.4 mg/dL Normal 8.5-10.2 [facility] Comment on above: Order Comment: Speci men Type: BLOOD SPECIMEN Ordering Facility: [facility] Address: [address] [place] [address] Performed By: #### 2 4328, 2531-0 #### [facility] CLIA [id number] [address] [place] [address] 82959 Chloride [Moles/Vol] 104 mmol/L Normal 97-105 [facility] Comment on above: Order Comment: Speci men Type: BLOOD SPECIMEN Ordering Facility: [facility] Address: [address] [place] [address] Performed By: #### 2 43238, 2531-0 #### [facility] CLIA [id number] [address] [place] [address] 70054 CO2 [Moles/Vol] 27 mmol/L Normal 22-30 [facility] Comment on above: Order Comment: Speci men Type: BLOOD SPECIMEN Ordering Facility: [facility] Address: [address] [place] [address] Performed By: #### 2 432-8, 2531-0 #### [facility] CLIA [id number] [address] [place] [address] 88244 Creatinine [Mass/Vol] 1.24 mg/dL High 0.58-0.96 [facility] Comment on above: Order Comment: Speci men Type: BLOOD SPECIMEN Ordering Facility: [facility] Address: [address] [place] [address] Performed By: #### 2 4323-8, 2531-0 #### [facility] CLIA [id number] [address] [place] [address] 50416 Creatinine and Glomerular filtration rate.predicted panel (S/P/Bld) 43 mL/min/1.73m??? Low >=60 [facility] Comment on above: Order Comment: Quincy pires Type: BLOOD SPECIMEN Ordering Facility: [facility] Address: [address] [id number] Result Comment: Esmer mated Glomerular Filtration Rate [...] Performed By: #### 2 4323-8, 0 #### [facility] CLIA [id number] [address] [place] [address] 25219 Glucose [Mass/Vol] 114 mg/dL High 74-99 [facility] Comment on above: Order Comment: Quincy pires Type: BLOOD SPECIMEN Ordering Facility: [facility] Address: [address] [id number] Result Comment: The [place] Diabetes Association (ADA) provides guidance for cutoff [...] Standards of Medical Care in Diabetes 2016, [place] [employer]. Diabetes Care. 2016.39(Suppl 1). Performed By: #### 2 4328, 2531-0 #### [facility] CLIA [id number] [address] [place] [address] Potassium [Moles/Vol] 5.0 mmol/L Normal 3.7-5.1 [facility] Comment on above: Order Comment: Speci men Type: BLOOD SPECIMEN Ordering Facility: [facility] Address: [address] [place] [address] Performed By: #### 2 4328, 2531-0 #### [facility] CLIA [id number] [address] [place] [address] 75682 Protein [Mass/Vol] 6.4 g/dL Normal 6.3-8.0 [facility] Comment on above: Order Comment: Speci men Type: BLOOD SPECIMEN Ordering Facility: [facility] Address: [address] [place] [address] Performed By: #### 2 4328, 0 #### [facility] CLIA [id number] [address] [place] [address] 21221 Sodium [Moles/Vol] 140 mmol/L Normal 136-144 [facility] Comment on above: Order Comment: Speci men Type: BLOOD SPECIMEN Ordering Facility: [facility] Address: [address] [place] [address] Performed By: #### 2 4328, 0 #### [facility] CLIA [id number] [address] [place] [address] 60251 Urea nitrogen [Mass/Vol] 18 mg/dL Normal 7-21 [facility] Comment on above: Order Comment: Speci men Type: BLOOD SPECIMEN Ordering Facility: [facility] Address: [address] [place] [address] Performed By: #### 2 4328, 2531-0 #### [facility] CLIA [id number] [address] [place] [address] 21094 LDH SerPl-cCncon 07-29-2023 LDH [Catalytic activity/Vol] 211 U/L Normal 135-214 [facility] Comment on above: Order Comment: Speci pranay Type: BLOOD SPECIMEN Ordering Facility: [facility] Address: [address] [address] Result Comment: Hemo lysis present. The origin [...] Performed By: #### 2 4323-8, 2532-0 #### [facility] CLIA [id number] [address] [place] [address] CBC W Auto Differential pane l (Bld)on 04-08-2023 Basophils (Bld) [#/Vol] 0.05 10*3/uL Normal <0.11 [facility] Comment on above: Order Comment: Speci pranay Type: BLOOD SPECIMEN Ordering Facility: [facility] Address: [address] [address] Performed By: #### 5 7021-8 #### [facility] CLIA [id number] [address] [place] [address] Basophils/100 WBC (Bld) 0.7 % Normal [facility] Comment on above: Order Comment: Speci pranay Type: BLOOD SPECIMEN Ordering Facility: [facility] Address: [address] [place] [address] Performed By: #### 5 7021-8 #### [facility] CLIA [id number] [address] [place] [address] 20137 Differential cell count method Nom (Bld) Auto Normal [facility] Comment on above: Order Comment: Kikai pranay Type: BLOOD SPECIMEN Ordering Facility: [facility] Address: [address] [address] Performed By: #### 5 7021-8 #### [facility] CLIA [id number] [address] [place] [address] 17113 Eosinophils (Bld) [#/Vol] 0.10 10*3/uL Normal <0.46 [facility] Comment on above: Order Comment: Speci men Type: BLOOD SPECIMEN Ordering Facility: [facility] Address: [address] [address] Performed By: #### 5 7021-8 #### [facility] CLIA [id number] [address] [place] [address] 70143 Eosinophils/100 WBC (Bld) 1.5 % Normal [facility] Comment on above: Order Comment: Speci men Type: BLOOD SPECIMEN Ordering Facility: [facility] Address: [address] [address] Performed By: #### 5 7021-8 #### [facility] CLIA [id number] [address] [place] [address] 85894 Erythrocyte distribution width (RBC) [Ratio] 13.5 % Normal 11.5-15.0 [facility] Comment on above: Order Comment: Speci men Type: BLOOD SPECIMEN Ordering Facility: [facility] Address: [address] [address] Performed By: #### 5 7021-8 #### [facility] CLIA [id number] [address] [place] [address] 25729 Hematocrit (Bld) [Volume fraction] 40.3 % Normal 36.0-46.0 [facility] Comment on above: Order Comment: Speci men Type: BLOOD SPECIMEN Ordering Facility: [facility] Address: [address] [address] Performed By: #### 5 7021-8 #### [facility] CLIA [id number] [address] [place] [address] 91371 Hemoglobin (Bld) [Mass/Vol] 13.4 g/dL Normal 11.5-15.5 [facility] Comment on above: Order Comment: Speci men Type: BLOOD SPECIMEN Ordering Facility: [facility] Address: [address] [address] Performed By: #### 5 7021-8 #### [facility] CLIA [id number] [address] [place] [address] 08468 Immature granulocytes (Bld) [#/Vol] 10*3/uL Normal <0.10 [facility] Comment on above: Order Comment: Speci men Type: BLOOD SPECIMEN Ordering Facility: [facility] Address: [address] [place] [address] Performed By: #### 5 7021-8 #### [facility] CLIA [id number] [address] [place] [address] 49191 Immature granulocytes/100 WBC (Bld) 0.3 % Normal [facility] Comment on above: Order Comment: Speci men Type: BLOOD SPECIMEN Ordering Facility: [facility] Address: [address] [place] [address] Performed By: #### 5 7021-8 #### [facility] CLIA [id number] [address] [place] [address] 65354 Lymphocytes (Bld) [#/Vol] 1.82 10*3/uL Normal 1.00-4.00 [facility] Comment on above: Order Comment: Speci men Type: BLOOD SPECIMEN Ordering Facility: [facility] Address: [address] [place] [address] Performed By: #### 5 7021-8 #### [facility] CLIA [id number] [address] [place] [address] 21879 Lymphocytes/100 WBC (Bld) 26.7 % Normal [facility] Comment on above: Order Comment: Speci men Type: BLOOD SPECIMEN Ordering Facility: [facility] Address: [address] [place] [address] Performed By: #### 5 7021-8 #### [facility] CLIA [id number] [address] [place] [address] 21751 MCH (RBC) [Entitic mass] 40.1 pg High 26.0-34.0 [facility] Comment on above: Order Comment: Speci men Type: BLOOD SPECIMEN Ordering Facility: [facility] Address: [address] [address] Performed By: #### 5 7021-8 #### [facility] CLIA [id number] [address] [place] [address] 23973 MCHC (RBC) [Mass/Vol] 33.3 g/dL Normal 30.5-36.0 [facility] Comment on above: Order Comment: Speci men Type: BLOOD SPECIMEN Ordering Facility: [facility] Address: [address] [address] Performed By: #### 5 7021-8 #### [facility] CLIA [id number] [address] [place] [address] 41624 MCV (RBC) [Entitic vol] 120.7 fL High 80.0-100.0 [facility] Comment on above: Order Comment: Speci men Type: BLOOD SPECIMEN Ordering Facility: [facility] Address: [address] [place] [address] Performed By: #### 5 7021-8 #### [facility] CLIA [id number] [address] [place] [address] 76961 Monocytes (Bld) [#/Vol] 0.56 10*3/uL Normal <0.87 [facility] Comment on above: Order Comment: Speci men Type: BLOOD SPECIMEN Ordering Facility: [facility] Address: [address] [address] Performed By: #### 5 7021-8 #### [facility] CLIA [id number] [address] [place] [address] 41568 Monocytes/100 WBC (Bld) 8.2 % Normal [facility] Comment on above: Order Comment: Speci men Type: BLOOD SPECIMEN Ordering Facility: [facility] Address: [address] [place] [address] Performed By: #### 5 7021-8 #### [facility] CLIA [id number] [address] [place] [address] 88298 Neutrophils (Bld) [#/Vol] 4.27 10*3/uL Normal 1.45-7.50 [facility] Comment on above: Order Comment: Speci men Type: BLOOD SPECIMEN Ordering Facility: [facility] Address: [address] [address] Performed By: #### 5 7021-8 #### [facility] CLIA [id number] [address] [place] [address] 22621 Neutrophils/100 WBC (Bld) 62.6 % Normal [facility] Comment on above: Order Comment: Speci men Type: BLOOD SPECIMEN Ordering Facility: [facility] Address: [address] [address] Performed By: #### 5 7021-8 #### [facility] CLIA [id number] [address] [place] [address] 01433 Nucleated RBC (Bld) [#/Vol] 10*3/uL Normal <0.01 [facility] Comment on above: Order Comment: Speci men Type: BLOOD SPECIMEN Ordering Facility: [facility] Address: [address] [address] Performed By: #### 5 7021-8 #### [facility] CLIA [id number] [address] [place] [address] 22207 Nucleated RBC/100 WBC (Bld) [Ratio] 0.0 /100 WBC Normal [facility] Comment on above: Order Comment: Speci men Type: BLOOD SPECIMEN Ordering Facility: [facility] Address: [address] [address] Performed By: #### 5 7021-8 #### [facility] CLIA [id number] [address] [place] [address] 13781 Platelet mean volume (Bld) [Entitic vol] 9.9 fL Normal 9.0-12.7 [facility] Comment on above: Order Comment: Speci men Type: BLOOD SPECIMEN Ordering Facility: [facility] Address: [address] [address] Performed By: #### 5 7021-8 #### [facility] CLIA [id number] [address] [place] [address] 93512 Platelets (Bld) [#/Vol] 580 10*3/uL High 150-400 [facility] Comment on above: Order Comment: Speci men Type: BLOOD SPECIMEN Ordering Facility: [facility] Address: [address] [place] [address] Performed By: #### 5 7021-8 #### [facility] CLIA [id number] [address] [place] [address] 91847 RBC (Bld) [#/Vol] 3.34 10*6/uL Low 3.90-5.20 [facility] Comment on above: Order Comment: Speci men Type: BLOOD SPECIMEN Ordering Facility: [facility] Address: [address] [place] [address] Performed By: #### 5 7021-8 #### [facility] CLIA [id number] [address] [place] [address] 47436 WBC (Bld) [#/Vol] 6.82 10*3/uL Normal 3.70-11.00 [facility] Comment on above: Order Comment: Speci men Type: BLOOD SPECIMEN Ordering Facility: [facility] Address: [address] [place] [address] Performed By: #### 5 7021-8 #### [facility] [place] [id number] [address] [place] [address]82 [facility] 04-08-2023 CNNURSE Nurse Visit (HEMAS[place]) JOSEFA CASTILLO ([id number]) 1940 F Date Time Provider Department 04/08/23 10:30 AM MARTHA NURSE JACKSON DENT During your visit today, we recorded the following information about you: Janeth Bright MA 04/08/2023 11:15 AM Signed Patient Identification confirmed: yes. Injection given and documented on DEC per provider order. Janeth Bright MA Referring Provider: ROD ROMAN [[id number]] Allergies As of Date: 04/08/2023 Noted Allergy [...] vitamin B12 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] Order(s):BCN NURSING COMMUNICATION [[id number]] Order #: [id number]: 1 STANDING [] cyanocobalamin 1,000 mcg injectionDisp: [...] Encounter Status:Closed by JANETH BRIGHT on 04/08/23 [facility] CNOVSPon 04-08-2023 CNOVSP Visit (SP) Office ([place]) JOSEFA CASTILLO ([id number]) 1940 F Date Time Provider Department 04/08/23 10:15 AM ROD ROMAN During your visit today, we recorded the following information about you: Temperature Pulse Respiration Blood pressure 97.8 degrees 77/minute 16/minute 161/74 Weight Height 56.7 kg 1.575 m Rod Roman MD 04/11/2023 2:03 PM Signed NAME: Josefa Castillo CLINIC NO.: [id number] DATE OF SERVICE: April 08, 2023 (Carlos) [...] 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 Continues B12 shots every 8 weeks [...] the left side of head over the jain and into the jaw. No vision changes associated with pain. Intermittent and dull and pounding. Right jain at the corner of her eye lid [...] energy. U (more content not included)... Normal [facility] Comprehensive metabolic 2000 panelon 04-08-2023 Albumin [Mass/Vol] 4.4 g/dL Normal 3.9-4.9 [facility] Comment on above: Order Comment: Speci men Type: BLOOD SPECIMEN Ordering Facility: [facility] Address: [address] [id number] Performed By: #### 2 4328, #### [facility] CLIA [id number] [address] [place] [address] 97971 ALP [Catalytic activity/Vol] 60 U/L Normal 34-123 [facility] Comment on above: Order Comment: Speci men Type: BLOOD SPECIMEN Ordering Facility: [facility] Address: [address] [id number] Performed By: #### 2 43238, 0 #### [facility] CLIA [id number] [address] [place] [address] 96703 ALT [Catalytic activity/Vol] 14 U/L Normal 7-38 [facility] Comment on above: Order Comment: Speci men Type: BLOOD SPECIMEN Ordering Facility: [facility] Address: [address] [address] Performed By: #### 2 4323-8, 2532-0 #### [facility] CLIA [id number] [address] [place] [address] 30157 Anion gap [Moles/Vol] 9 mmol/L Normal 9-18 [facility] Comment on above: Order Comment: Speci men Type: BLOOD SPECIMEN Ordering Facility: [facility] Address: [address] [address] Performed By: #### 2 4328, 2531-0 #### [facility] CLIA [id number] [address] [place] [address] 37187 AST [Catalytic activity/Vol] 21 U/L Normal 13-35 [facility] Comment on above: Order Comment: Speci men Type: BLOOD SPECIMEN Ordering Facility: [facility] Address: [address] Performed By: #### 2 4328, 2531-0 #### [facility] CLIA [id number] [address] [place] [address] 89557 Bilirubin [Mass/Vol] 0.5 mg/dL Normal 0.2-1.3 [facility] Comment on above: Order Comment: Speci men Type: BLOOD SPECIMEN Ordering Facility: [facility] Address: [address] Performed By: #### 2 432-8, 2-0 #### [facility] CLIA [id number] [address] [place] [address] 84410 Calcium [Mass/Vol] 9.5 mg/dL Normal 8.5-10.2 [facility] Comment on above: Order Comment: Speci men Type: BLOOD SPECIMEN Ordering Facility: [facility] Address: [address] Performed By: #### 2 4322-8, 2532-0 #### [facility] CLIA [id number] [address] [place] [address] Chloride [Moles/Vol] 102 mmol/L Normal 97-105 [facility] Comment on above: Order Comment: Speci men Type: BLOOD SPECIMEN Ordering Facility: [facility] Address: [address] [place] [address] Performed By: #### 2 4323-8, 2532-0 #### [facility] CLIA [id number] [address] [place] [address] 75866 CO2 [Moles/Vol] 27 mmol/L Normal 22-30 [facility] Comment on above: Order Comment: Speci men Type: BLOOD SPECIMEN Ordering Facility: [facility] Address: [address] [place] [address] Performed By: #### 2 4323-8, 2-0 #### [facility] CLIA [id number] [address] [place] [address] 79686 Creatinine [Mass/Vol] 0.88 mg/dL Normal 0.58-0.96 [facility] Comment on above: Order Comment: Speci men Type: BLOOD SPECIMEN Ordering Facility: [facility] Address: [address] [place] [address] Performed By: #### 2 4323-8, 2532-0 #### [facility] CLIA [id number] [address] [place] [address] 13603 ESTIMATED GLOMERULAR FILTRATION RATE 66 mL/min/1.73m??? Normal >=60 [facility] Comment on above: Order Comment: Speci men Type: BLOOD SPECIMEN Ordering Facility: [facility] Address: [address] [place] [address] Result Comment: Esmer mated Glomerular Filtration Rate [...] Performed By: #### 2 4323-8, 2531-0 #### [facility] CLIA [id number] [address] [place] [address] 32696 Glucose [Mass/Vol] 106 mg/dL High 74-99 [facility] Comment on above: Order Comment: Speci men Type: BLOOD SPECIMEN Ordering Facility: [facility] Address: [address] [id number] Result Comment: The [place] Diabetes [employer] (ADA) provides guidance for cutoff [...] Standards of Medical Care in Diabetes 2016, [place] [employer]. Diabetes Care. 2016.39(Suppl 1). Performed By: #### 2 4323-8, 0 #### [facility] CLIA [id number] [address] [place] [address] 20008 Potassium [Moles/Vol] 4.3 mmol/L Normal 3.7-5.1 [facility] Comment on above: Order Comment: Speci men Type: BLOOD SPECIMEN Ordering Facility: [facility] Address: [address] [place] [address] Performed By: #### 2 4323-8, 2531-0 #### [facility] CLIA [id number] [address] [place] [id number] Protein [Mass/Vol] 6.7 g/dL Normal 6.3-8.0 [facility] Comment on above: Order Comment: [place] men Type: BLOOD SPECIMEN Ordering Facility: [facility] Address: [address] [id number] Performed By: #### 2 4323-8, 2531-0 #### [facility] CLIA [id number] [address] [place] [address] Sodium [Moles/Vol] 138 mmol/L Normal 136-144 [facility] [place] Comment on above: Order Comment: Speci men Type: BLOOD SPECIMEN Ordering Facility: [facility] Address: [address] [place] [address] Performed By: #### 2 432-8, 2531-0 #### [facility] CLIA [id number] [address] [place] [address] [id number] Urea nitrogen [Mass/Vol] 10 mg/dL Normal 7-21 [facility] Comment on above: Order Comment: Speci men Type: BLOOD SPECIMEN Ordering Facility: [facility] Address: [address] [place] [address] Performed By: #### 2 4328, 2531-0 #### [facility] CLIA [id number] [address] [place] [address] 99358 LDH SerPl-cCncon 04-08-2023 LDH [Catalytic activity/Vol] 215 U/L High 135-214 [facility] Comment on above: Order Comment: Speci men Type: BLOOD SPECIMEN Ordering Facility: [facility] Address: [address] [place] [address] Result Comment: Hemo lysis present. The origin [...] Performed By: #### 2 4323-8, 2531-0 #### [facility] CLIA [id number] [address] [place] [address] [id number] Telemedicine 02-19-2023 Telemedicine [phone] Chloe Castillo 1940 Date Provider Department [place] 02/19/2023 LINA IZAGUIRRE [facility] Family History Problem Relation Age of Onset Breast cancer Mother Diabetes Mother Diabetes Father Family Status - Relation Status Age at Mother Father Level of Service:80933 [place] PHYS/QHP TELEPHONE EVALUATION 11-20 MIN Reason for Visit and Comments: Coronary Artery Disease [187] Hypertension [155268] Telehealth Phone Visit [872] Normal [facility] CBC AUTO DIFFon 01-25-2023 BASO # 0.1 103/ul Normal 0.0-0.1 [facility] Comment on above: Performed By: #### C BC #### [facility] [address] [place] [address] Dr. Dianna Alcocer Basophils/100 WBC (Bld) 0.6 % Normal 0.2-2.0 [facility] Comment on above: Performed By: #### C BC #### [facility] [address] [place] [address] Dr. Dianna Alcocer EO # 0.1 103/ul Normal 0.0-0.7 [facility] Comment on above: Performed By: #### C BC #### [facility] [address] [place] [address] Dr. Dianna Alcocer Eosinophils/100 WBC (Bld) 0.7 % Critically low 0.9-7.0 [facility] Comment on above: Performed By: #### C BC #### [facility] [address] [place] [address] Dr. Dianna Alcocer Erythrocyte distribution width (RBC) [Ratio] 13.4 % Normal 11.0-15.0 [facility] Comment on above: Performed By: #### C BC #### [facility] [address] [place] [address] Dr. Dianna Alcocer Hematocrit (Bld) [Volume fraction] 38.9 % Normal 36.0-48.0 [facility] Comment on above: Performed By: #### C BC #### [facility] [address] [place] [address] Dr. Dianna Alcocer Hemoglobin (Bld) [Mass/Vol] 13.2 g/dL Normal 12.0-16.0 [facility] Comment on above: Performed By: #### C BC #### [facility] [address] [place] [address] Dr. Dianna Alcocer IG # 0.03 10e3/ul Normal 0.00-0.03 [facility] Comment on above: Performed By: #### C BC #### [facility] [address] [place] [address] Dr. Dianna Alcocer IG % 0.4 % Normal 0.0-0.5 [facility] Comment on above: Performed By: #### C BC #### [facility] [address] [place] [address] Dr. Dianna Alcocer LYMPH # 1.4 103/ul Normal 1.2-3.8 [facility] Comment on above: Performed By: #### C BC #### [facility] [address] [place] [address] Dr. Dianna Alcocer Lymphocytes/100 WBC (Bld) 17.0 % Critically low 20.5-60.0 [facility] Comment on above: Performed By: #### C BC #### [facility] [address] [place] [address] Dr. Dianna Alcocer MANUAL DIFF REQ NO Normal [facility] Comment on above: Performed By: #### C BC #### [facility] [address] [place] [address] Dr. Dianna Alcocer MCH (RBC) [Entitic mass] 39.6 pg Critically high 26.7-34.0 [facility] Comment on above: Performed By: #### C BC #### [facility] [address] [place] [address] Dr. Dianna Alcocer MCHC (RBC) [Mass/Vol] 33.9 g/dL Normal 29.9-35.2 [facility] Comment on above: Performed By: #### C BC #### [facility] [address] [place] [address] Dr. Dianna Alcocer MCV (RBC) [Entitic vol] 116.8 fL Critically high 81.0-99.0 [facility] Comment on above: Performed By: #### C BC #### [facility] [address] [address] [address] Dianna Alcocer MONO # 0.6 103/ul Normal 0.3-0.8 [facility] Comment on above: Performed By: #### C BC #### [facility] [address] [address] [address] Dianna Alcocer Monocytes/100 WBC (Bld) 7.5 % Normal 1.7-12.0 [facility] Comment on above: Performed By: #### C BC #### [facility] [address] [address] [address] Dianna Alcocer NEUT # 5.9 103/ul Normal 1.4-6.5 [facility] Comment on above: Performed By: #### C BC #### [facility] [address] [place] [address] Dr. Dianna Alcocer Neutrophils/100 WBC (Bld) 73.8 % Normal 43.0-75.0 [facility] Comment on above: Performed By: #### C BC #### [facility] [address] [place] [address] Dr. Dianna Alcocer Platelet mean volume (Bld) [Entitic vol] 9.9 fL Normal 9.5-13.5 [facility] Comment on above: Performed By: #### C BC #### [facility] [address] [place] [address] Dr. Dianna Alcocer PLT 576 103/ul Critically high 150-450 [facility] Comment on above: Performed By: #### C BC #### [facility] [address] [place] [address] Dr. Dianna Alcocer RBC 3.33 106/ul Critically low 4.20-5.40 [facility] Comment on above: Performed By: #### C BC #### [facility] [address] [place] [address] Dr. Dianna Alcocer WBC 8.0 103/ul Normal 4.0-11.0 [facility] Comment on above: Performed By: #### C BC #### [facility] [address] [place] [address] Dr. Dianna Alcocer LIPID PROFILEon 01-25-2023 CHOL-HDL RATIO NORM SEE BELOW Normal [facility] Comment on above: Result Comment: 3.3 - 4.4 LOW RISK 4.4 - 7.1 AVERAGE RISK 7.1 - 11.0 MODERATE RISK >11.0 HIGH RISK Performed By: #### C MADM, BNP, CMP #### [facility] [address] [address] [address] Dianna Alcocer Cholesterol [Mass/Vol] 123 mg/dL Normal <=200 [facility] Comment on above: Performed By: #### C MADM, BNP, CMP #### [facility] [address] [address] [address] Dianna Alcocer Cholesterol in HDL [Mass/Vol] 60 mg/dL Normal 40-60 [facility] Comment on above: Performed By: #### C MADM, BNP, CMP #### [facility] [address] [place] [address] Dr. Dianna Alcocer Cholesterol in LDL [Mass/Vol] 50.4 mg/dL Normal [facility] Comment on above: Performed By: #### C MADM, BNP, CMP #### [facility] [address] [address] [address] Dianna Alcocer Cholesterol.total/C holesterol in HDL [Mass ratio] 2.1 {ratio} Normal [facility] Comment on above: Performed By: #### C MADM, BNP, CMP #### [facility] [address] [address] [address] Dianna Alcocer HDL NORMAL > or = 60 mg/dl - LO W CARDIOVASCULAR RISK <40 mg/dl - HIGH CARDIOVASCULAR RISK Normal [facility] Comment on above: Performed By: #### C MADM, BNP, CMP #### [facility] [address] [place] [address] Dr. Dianna Alcocer LDL CALC NORMAL SEE BELOW Normal [facility] Comment on above: Result Comment: <100 mg/dl OPTIMAL 100 - 129 mg/dl NEAR OR ABOVE OPTIMAL 130 - 159 mg/dl BORDERLINE HIGH 160 - 189 mg/dl HIGH >190 mg/dl VERY HIGH Performed By: #### C MADM, BNP, CMP #### [facility] [address] [address] [address] Dianna Alcocer Triglyceride [Mass/Vol] 63 mg/dL Normal <=150 [facility] Comment on above: Performed By: #### C MADM, BNP, CMP #### [facility] [address] [address] [address] Dianna Alcocer VLDL CALC 12.6 mg/dL Normal [facility] Comment on above: Performed By: #### C MADM, BNP, CMP #### [facility] [address] [address] [address] Dianna Alcocer LIVER PROFILEon 01-25-2023 Albumin [Mass/Vol] 4.0 g/dL Normal 3.4-5.0 [facility] Comment on above: Performed By: #### C MADM, BNP, CMP #### [facility] [address] [address] [address] Dianna Alcocer Albumin/Globulin [Mass ratio] 1.4 {ratio} Normal [facility] Comment on above: Performed By: #### C MADM, BNP, CMP #### [facility] [address] [address] [address] Dianna Alcocer ALP [Catalytic activity/Vol] 74 U/L Normal 46-116 [facility] Comment on above: Performed By: #### C MADM, BNP, CMP #### [facility] [address] [address] [address] Dianna Alcocer ALT [Catalytic activity/Vol] 21 U/L Normal 14-59 [facility] Comment on above: Performed By: #### C MADM, BNP, CMP #### [facility] [address] [address] [address] Dianna Alcocer AST [Catalytic activity/Vol] 18 U/L Normal 15-37 [facility] Comment on above: Performed By: #### C MADM, BNP, CMP #### [facility] [address] [address] [address] Dianna Alcocer BILI, CONJUGATED 0.1 mg/dL Normal 0.0-0.2 [facility] Comment on above: Performed By: #### C MADM, BNP, CMP #### [facility] [address] [place] [address] Dr. Dianna Alcocer Bilirubin [Mass/Vol] 0.5 mg/dL Normal 0.2-1.0 [facility] Comment on above: Performed By: #### C MADM, BNP, CMP #### [facility] [address] [place] [address] Dr. Dianna Alcocer Globulin (S) [Mass/Vol] 2.9 g/dL Normal [facility] Comment on above: Performed By: #### C MADM, BNP, CMP #### [facility] [address] [place] [address] Dr. Dianna Alcocer Protein [Mass/Vol] 6.9 g/dL Normal 6.4-8.2 [facility] Comment on above: Performed By: #### C MADM, BNP, CMP #### [facility] [address] [place] [address] Dr. Dianna Alcocer PROF CHEM 8 (BAS METB)on Anion gap [Moles/Vol] 14.7 mmol/L Normal [facility] Comment on above: Performed By: #### C MADM, BNP, CMP #### [facility] [address] [place] [address] Dr. Dianna Alcocer Calcium [Mass/Vol] 8.9 mg/dL Normal 8.5-10.1 [facility] Comment on above: Performed By: #### C MADM, BNP, CMP #### [facility] [address] [place] [address] Dr. Dianna Alcocer Chloride [Moles/Vol] 103 mmol/L Normal 98-107 [facility] Comment on above: Performed By: #### C MADM, BNP, CMP #### [facility] [address] [place] [address] Dr. Dianna Alcocer CO2 [Moles/Vol] 28.6 mmol/L Normal 21.0-32.0 [facility] Comment on above: Performed By: #### C MADM, BNP, CMP #### [facility] [address] [address] [address] Dianna Alcocer Creatinine [Mass/Vol] 0.88 mg/dL Normal 0.55-1.02 [facility] Comment on above: Performed By: #### C MADM, BNP, CMP #### [facility] [address] [address] [address] Dianna Alcocer EGFR-AF MONTENEGRIN >60 Normal >=60 [facility] Comment on above: Performed By: #### C MADM, BNP, CMP #### [facility] [address] [address] [address] Dianna Alcocer EGFR-NON AF MONTENEGRIN >60 Normal >=60 [facility] Comment on above: Performed By: #### C MADM, BNP, CMP #### [facility] [address] [address] [address] Dianna Alcocer Glucose [Mass/Vol] 110 mg/dL Critically high 74-106 [facility] Comment on above: Performed By: #### C MADM, BNP, CMP #### [facility] [address] [address] [address] Dianna Alcocer Potassium [Moles/Vol] 4.3 mmol/L Normal 3.5-5.1 [facility] Comment on above: Performed By: #### C MADM, BNP, CMP #### [facility] [address] [address] [address] Dianna Alcocer Sodium [Moles/Vol] 142 mmol/L Normal 136-145 [facility] Comment on above: Performed By: #### C MADM, BNP, CMP #### [facility] [address] [address] [address] Dianna Alcocer Urea nitrogen [Mass/Vol] 11.0 mg/dL Normal 7.0-18.0 [facility] Comment on above: Performed By: #### C MADM, BNP, CMP #### [facility] [address] [address] [address] Dianna Alcocer Urea nitrogen/Creatinine [Mass ratio] 12.5 mg/mg Normal [facility] Comment on above: Performed By: #### C MADM, BNP, CMP #### [facility] [address] [address] [address] Dianna Alcocer BNPon 08-24-2022 Natriuretic peptide B (Bld) [Mass/Vol] 469.0 pg/mL Normal <=1,800.0 [facility] Comment on above: Performed By: #### C MADM, BNP, CMP #### [facility] [address] [address] [address] Dianna Alcocer CARDIAC KEMAR ADMITon 022 CK [Catalytic activity/Vol] 145 U/L Normal 26-192 [facility] Comment on above: Performed By: #### C MADM, BNP, CMP #### [facility] [address] [place] [address] Dr. Dianna Alcocer CK.MB [Mass/Vol] 3.17 ng/mL Normal <=3.60 [facility] Comment on above: Performed By: #### C MADM, BNP, CMP #### [facility] [address] [place] [address] Dr. Dianna Alcocer HSTROP 8.4 pg/mL Normal 4.0-51.3 [facility] Comment on above: Result Comment: CUT- OFF POINTS HAVE BEEN ESTABLISHED BASED ON THE FOURTH UNIVERSAL DEFINITIONS OF MYOCARDIAL INFARCTION. THE UPPER REFERENCE LIMIT (URL) OF TROPONIN, DEFINED THE 99TH PERCENTILE OF cTnI DISTRIBUTION IN A REFERENCE POPULATION, HAS BEEN CONFIRMED THE DECISION THRESHOLD FOR TX DIAGNOSIS. Performed By: #### C MADM, BNP, CMP #### [facility] [address] [place] [address] Dr. Dianna Alcocer BOB 155 ng/mL Critically high 9-82 [facility] Comment on above: Performed By: #### C MADM, BNP, CMP #### [facility] [address] [place] [address] Dr. Dianna Alcocer CBC AUTO DIFFon 08-24-2022 BASO # 0.1 103/ul Normal 0.0-0.1 [facility] Comment on above: Performed By: #### C BC #### [facility] [address] [place] [address] Dr. Dianna Alcocer Basophils/100 WBC (Bld) 1.6 % Normal 0.2-2.0 [facility] Comment on above: Performed By: #### C BC #### [facility] [address] [place] [address] Dr. Dianna Alcocer EO # 0.1 103/ul Normal 0.0-0.7 [facility] Comment on above: Performed By: #### C BC #### [facility] [address] [place] [address] Dr. Dianna Alcocer Eosinophils/100 WBC (Bld) 1.6 % Normal 0.9-7.0 [facility] Comment on above: Performed By: #### C BC #### [facility] [address] [place] [address] Dr. Dianna Alcocer Erythrocyte distribution width (RBC) [Ratio] 13.1 % Normal 11.0-15.0 [facility] Comment on above: Performed By: #### C BC #### [facility] [address] [place] [address] Dr. Dianna Alcocer Hematocrit (Bld) [Volume fraction] 38.6 % Normal 36.0-48.0 [facility] Comment on above: Performed By: #### C BC #### [facility] [address] [place] [address] Dr. Dianna Alcocer Hemoglobin (Bld) [Mass/Vol] 13.2 g/dL Normal 12.0-16.0 [facility] Comment on above: Performed By: #### C BC #### [facility] [address] [place] [address] Dr. Dianna Alcocer IG # 0.01 10e3/ul Normal 0.00-0.03 [facility] Comment on above: Performed By: #### C BC #### [facility] [address] [place] [address] Dr. Dianna Alcocer IG % 0.2 % Normal 0.0-0.5 [facility] Comment on above: Performed By: #### C BC #### [facility] [address] [place] [address] Dr. Dianna Alcocer LYMPH # 1.7 103/ul Normal 1.2-3.8 [facility] Comment on above: Performed By: #### C BC #### [facility] [address] [place] [address] Dr. Dianna Alcocer Lymphocytes/100 WBC (Bld) 39.3 % Normal 20.5-60.0 [facility] Comment on above: Performed By: #### C BC #### [facility] [address] [place] [address] Dr. Dianna Alcocer MANUAL DIFF REQ NO Normal [facility] Comment on above: Performed By: #### C BC #### [facility] [address] [place] [address] Dr. Dianna Alcocer MCH (RBC) [Entitic mass] 41.4 pg Critically high 26.7-34.0 [facility] Comment on above: Performed By: #### C BC #### [facility] [address] [place] [address] Dr. Dianna Alcocer MCHC (RBC) [Mass/Vol] 34.2 g/dL Normal 29.9-35.2 [facility] Comment on above: Performed By: #### C BC #### [facility] [address] [place] [address] Dr. Dianna Alcocer MCV (RBC) [Entitic vol] 121.0 fL Critically high 81.0-99.0 [facility] Comment on above: Performed By: #### C BC #### [facility] [address] [place] [address] Dr. Dianna Alcocer MONO # 0.5 103/ul Normal 0.3-0.8 [facility] Comment on above: Performed By: #### C BC #### [facility] [address] [place] [address] Dr. Dianna Alcocer Monocytes/100 WBC (Bld) 12.0 % Normal 1.7-12.0 [facility] Comment on above: Performed By: #### C BC #### [facility] [address] [place] [address] Dr. Dianna Alcocer NEUT # 2.0 103/ul Normal 1.4-6.5 [facility] Comment on above: Performed By: #### C BC #### [facility] [address] [place] [address] Dr. Dianna Alcocer Neutrophils/100 WBC (Bld) 45.3 % Normal 43.0-75.0 [facility] Comment on above: Performed By: #### C BC #### [facility] [address] [place] [address] Dr. Dianna Alcocer Platelet mean volume (Bld) [Entitic vol] 10.0 fL Normal 9.5-13.5 [facility] Comment on above: Performed By: #### C BC #### [facility] [address] [place] [address] Dr. Dianna Alcocer PLT 228 103/ul Normal 150-450 [facility] Comment on above: Performed By: #### C BC #### [facility] [address] [place] [address] Dr. Dianna Alcocer RBC 3.19 106/ul Critically low 4.20-5.40 [facility] Comment on above: Performed By: #### C BC #### [facility] [address] [place] [address] Dr. Dianna Alcocer WBC 4.3 103/ul Normal 4.0-11.0 [facility] Comment on above: Performed By: #### C BC #### [facility] [address] [place] [address] Dr. Dianna Alcocer CULTURE URINEon 08-24-2022 CULTURE URINE Culture Observations : LIGHT GROWTH OF MIXED GENITAL SATHYA. NO POTENTIAL PATHOGENS SEEN. Normal [facility] Comment on above: Performed By: #### C MADM, BNP, CMP #### [facility] [address] [place] [address] Dr. Dianna Alcocer DRUG SCREEN RAPID (URINE)on 08-24-2022 AMP Negative Normal NEGATIVE [facility] Comment on above: Performed By: #### D RUGRPD, UMICRO, ERUR #### [facility] [address] [place] [address] Dr. Dianna Alcocer BAR Negative Normal NEGATIVE [facility] Comment on above: Performed By: #### D EDEN CARRASQUILLO, ERUR #### [facility] [address] [place] [address] Dr. Dianna Alcocer BUP Negative Normal NEGATIVE [facility] Comment on above: Performed By: #### D EDEN CARRASQUILLO, ERUR #### [facility] [address] [place] [address] Dr. Dianna Alcocer BZO Negative Normal NEGATIVE [facility] Comment on above: Performed By: #### D EDEN CARRASQUILLO, ERUR #### [facility] [address] [place] [address] Dr. Dianna Alcocer HASMUKH Negative Normal NEGATIVE [facility] Comment on above: Performed By: #### D EDEN CARRASQUILLO, ERUR #### [facility] [address] [place] [address] Dr. Dianna Alcocer CUT-OFFS SEE BELOW Normal [facility] Comment on above: Result Comment: AMP [...] By: #### D EDEN CARRASQUILLO, ERUR #### [facility] [address] [place] [address] Dr. Dianna Alcocer DRUG CUT HEADER DRUG CLASS TEST SYST EM CUT-OFF CONCENTRATIONS ARE FOLLOWS: Normal [facility] Comment on above: Performed By: #### D EDEN CARRASQUILLO, ERUR #### [facility] [address] [place] [address] Dr. Dianna Alcocer mAMP Negative Normal NEGATIVE [facility] Comment on above: Performed By: #### D RUGMICHELINE UMICRO, ERUR #### [facility] [address] [address] [address] Dianna Alcocer MTD Negative Normal NEGATIVE [facility] Comment on above: Performed By: #### D RUGRPHeydi UMICRO, ERUR #### [facility] [address] [address] [address] Dianna Alcocer OPI Positive Abnormal NEGATIVE [facility] Comment on above: Performed By: #### D RUGRPHeydi UMICRO, ERUR #### [facility] [address] [address] [address] Dianna Alcocer OXY Negative Normal NEGATIVE [facility] Comment on above: Performed By: #### D LISSY CARRASQUILLOICRO, ERUR #### [facility] [address] [address] [address] Dianna Alcocer PCP Negative Normal NEGATIVE [facility] Comment on above: Performed By: #### D RUGLISSY TOBIASICRO, ERUR #### [facility] [address] [address] [address] Dianna Alcocer PPX Negative Normal NEGATIVE [facility] Comment on above: Performed By: #### D LISSY CARRASQUILLOICRO, ERUR #### [facility] [address] [address] [address] Dianna Alcocer TCA Negative Normal NEGATIVE [facility] Comment on above: Performed By: #### D RUGMICHELINE UMICRO, ERUR #### [facility] [address] [address] [address] Dianna Alcocer THC Negative Normal NEGATIVE [facility] Comment on above: Performed By: #### D LISSY CARRASQUILLOICRO, ERUR #### [facility] [address] [address] [address] Dianna Alcocer ER URINE PROFILEon 2 Bilirubin Ql (U) Negative Normal NEGATIVE [facility] Comment on above: Performed By: #### D EDEN CARRASQUILLO, ERUR #### [facility] [address] [address] [address] Dianna Alcocer Clarity (U) CLEAR Normal CLEAR [facility] Comment on above: Performed By: #### D EDEN CARRASQUILLO, ERUR #### [facility] [address] [address] [address] Dianna Alcocer Color (U) LT. YELLOW Normal YELLOW [facility] Comment on above: Performed By: #### D EDEN CARRASQUILLO, ERUR #### [facility] [address] [address] [address] Dianna EDMONDSON A micrscopic examination will be performed if indicated. Normal [facility] Comment on above: Performed By: #### D EDEN CARRASQUILLO, ERUR #### [facility] [address] [address] [address] Dianna Alcocer Glucose Ql (U) Negative Normal NEGATIVE The [facility] Comment on above: Performed By: #### D EDEN CARRASQUILLO, ERUR #### [facility] [address] [address] [address] Dianna Alcocer Hemoglobin Ql (U) MODERATE Abnormal NEGATIVE The [facility] Comment on above: Performed By: #### D EDEN CARRASQUILLO, ERUR #### [facility] [address] [address] [address] Dianna Alcocer Ketones Ql (U) Negative Normal NEGATIVE The [facility] Comment on above: Performed By: #### D EDEN CARRASQUILLO, ERUR #### [facility] [address] [address] [address] Dianna Alcocer LEUKOCYTES SMALL Abnormal NEGATIVE The [facility] Comment on above: Performed By: #### D EDEN CARRASQUILLO, ERUR #### [facility] [address] [address] [address] Dianna Alcocer Nitrite Ql (U) Negative Normal NEGATIVE The [facility] Comment on above: Performed By: #### D EDEN CARRASQUILLO, ERUR #### [facility] [address] [address] [address] Dianna Alcocer pH (U) 6.0 [pH] Normal 5-9 [facility] Comment on above: Performed By: #### D EDEN CARRASQUILLO, ERUR #### [facility] [address] [address] [address] Dianna Alcocer SPEC GRAVITY 1.020 Normal 1.005-<=1.025 The [facility] Comment on above: Performed By: #### D EDEN CARRASQUILLO, ERUR #### [facility] [address] [address] [address] Dianna Alcocer UA PROTEIN Negative Normal NEGATIVE/ TRACE [facility] Comment on above: Performed By: #### D EDEN CARRASQUILLO, ERUR #### [facility] [address] [place] [address] Dr. Dianna Alcocer UR MICRO IND INDICATED Normal [facility] Comment on above: Performed By: #### D EDEN CARRASQUILLO, ERUR #### [facility] [address] [address] [address] Dianna Alcocer Urobilinogen Qn (U) 0.2 {Simone'U}/dL Normal 0.2 - 1. 0 [facility] Comment on above: Performed By: #### D EDEN CARRASQUILLO, ERUR #### [facility] [address] [address] [address] Dianna Alcocer PROF 14(COMP METB)on 022 Albumin [Mass/Vol] 4.0 g/dL Normal 3.4-5.0 [facility] Comment on above: Performed By: #### C MADM, BNP, CMP #### [facility] [address] [place] [address] Dr. Dianna Alcocer Albumin/Globulin [Mass ratio] 1.4 {ratio} Normal [facility] Comment on above: Performed By: #### C MADM, BNP, CMP #### [facility] [address] [address] [address] Dianna Alcocer ALP [Catalytic activity/Vol] 57 U/L Normal 46-116 [facility] Comment on above: Performed By: #### C MADM, BNP, CMP #### [facility] [address] [place] [address] Dr. Dianna Alcocer ALT [Catalytic activity/Vol] 15 U/L Normal 14-59 [facility] Comment on above: Performed By: #### C MADM, BNP, CMP #### [facility] [address] [address] [address] Dianna Alcocer Anion gap [Moles/Vol] 11.3 mmol/L Normal [facility] Comment on above: Performed By: #### C MADM, BNP, CMP #### [facility] [address] [place] [address] Dr. Dianna Alcocer AST [Catalytic activity/Vol] 16 U/L Normal 15-37 [facility] Comment on above: Performed By: #### C MADM, BNP, CMP #### [facility] [address] [place] [address] Dr. Dianna Alcocer Bilirubin [Mass/Vol] 0.6 mg/dL Normal 0.2-1.0 [facility] Comment on above: Performed By: #### C MADM, BNP, CMP #### [facility] [address] [place] [address] Dr. Dianna Alcocer Calcium [Mass/Vol] 8.6 mg/dL Normal 8.5-10.1 [facility] Comment on above: Performed By: #### C MADM, BNP, CMP #### [facility] [address] [place] [address] Dr. Dianna Alcocer Chloride [Moles/Vol] 100 mmol/L Normal 98-107 [facility] Comment on above: Performed By: #### C MADM, BNP, CMP #### [facility] [address] [place] [address] Dr. Dianna Alcocer CO2 [Moles/Vol] 28.4 mmol/L Normal 21.0-32.0 [facility] Comment on above: Performed By: #### C MADM, BNP, CMP #### [facility] [address] [address] [address] Dianna Alcocer Creatinine [Mass/Vol] 0.97 mg/dL Normal 0.55-1.02 [facility] Comment on above: Performed By: #### C MADM, BNP, CMP #### [facility] [address] [address] [address] Dianna Alcocer EGFR-AF MONTENEGRIN >60 Normal >=60 [facility] Comment on above: Performed By: #### C MADM, BNP, CMP #### [facility] [address] [place] [address] Dr. Dianna Alcocer EGFR-NON AF MONTENEGRIN 55 mL/min/1.73m2 Critically low >=60 The [facility] Comment on above: Performed By: #### C MADM, BNP, CMP #### [facility] [address] [place] [address] Dr. Dianna Alcocer Globulin (S) [Mass/Vol] 2.9 g/dL Normal [facility] Comment on above: Performed By: #### C MADM, BNP, CMP #### [facility] [address] [place] [address] Dr. Dianna Alcocer Glucose [Mass/Vol] 86 mg/dL Normal 74-106 [facility] Comment on above: Performed By: #### C MADM, BNP, CMP #### [facility] [address] [place] [address] Dr. Dianna Alcocer Potassium [Moles/Vol] 3.7 mmol/L Normal 3.5-5.1 [facility] Comment on above: Performed By: #### C MADM, BNP, CMP #### [facility] [address] [place] [address] Dr. Dianna Alcocer Protein [Mass/Vol] 6.9 g/dL Normal 6.4-8.2 [facility] Comment on above: Performed By: #### C MADM, BNP, CMP #### [facility] [address] [place] [address] Dr. Dianna Alcocer Sodium [Moles/Vol] 136 mmol/L Normal 136-145 [facility] Comment on above: Performed By: #### C MADM, BNP, CMP #### [facility] [address] [address] [address] Dianna Alcocer Urea nitrogen [Mass/Vol] 9.0 mg/dL Normal 7.0-18.0 [facility] Comment on above: Performed By: #### C MADM, BNP, CMP #### [facility] [address] [address] [address] Dianna Alcocer Urea nitrogen/Creatinine [Mass ratio] 9.3 mg/mg Normal [facility] Comment on above: Performed By: #### C MADM, BNP, CMP #### [facility] [address] [address] [address] Dianna Alcocer URINE MICROSCOPIC ONLYon BACTERIA NONE SEEN Normal NONE SEEN [facility] Comment on above: Performed By: #### D EDEN CARRASQUILLO, ERUR #### [facility] [address] [address] [address] Dianna Alcocer Bacteria identified Cx Nom (U) INDICATED Normal [facility] Comment on above: Performed By: #### D EDEN CARRASQUILLO, ERUR #### [facility] [address] [address] [address] Dianna Alcocer CAST NONE SEEN Normal NONE SEEN [facility] Comment on above: Performed By: #### D JUNAID CARRASQUILLORO, ERUR #### [facility] [address] [address] [address] Dianna Alcocer Crystals LM Nom (Urine sed) NONE SEEN Normal NONE SEEN [facility] Comment on above: Performed By: #### D JUNAID CARRASQUILLORO, ERUR #### [facility] [address] [address] [address] Dianna Alcocer Epithelial cells LM Ql (Urine sed) FEW Abnormal NONE SEEN /RARE The [facility] Comment on above: Performed By: #### D JUNAID CARRASQUILLORO, ERUR #### [facility] [address] [address] [address] Dianna Alcocer MUCOUS TRACE Abnormal NONE SEEN The [facility] Comment on above: Performed By: #### D EDEN CARRASQUILLO, ERUR #### [facility] [address] [address] [address] Dianna Alcocer RBC 2-5 Abnormal 0-2 [facility] Comment on above: Performed By: #### D EDEN CARRASQUILLO ERUR #### [facility] [address] [address] [address] Dianna Alcocer WBC 2-5 Abnormal NONE SEEN The [facility] Comment on above: Performed By: #### D EDEN CARRASQUILLO, ERUR #### [facility] [address] [address] [address] Dianna Alcocer VIT B12 AND FOLATEon 022 Cobalamin (Vitamin B12) [Mass/Vol] 703.0 pg/mL Normal 193.0-986.0 [facility] Comment on above: Performed By: #### C MADM, BNP, CMP #### [facility] [address] [address] [address] Dianna Alcocer FOLATE 12.90 ng/mL Normal 8.60-58.90 [facility] Comment on above: Performed By: #### C MADM, BNP, CMP #### [facility] [address] [address] [address] Dianna Alcocer XR CHEST 1 Von [...] LUZ GRIDER Date: 2022-08-24 10:01 Normal The [facility] CBC AUTO DIFFon 08-23-2022 BASO # 0.1 103/ul Normal 0.0-0.1 [facility] Comment on above: Performed By: #### C MADM, BNP, CMP #### [facility] [address] [place] [address] Dr. Dianna Alcocer Basophils/100 WBC (Bld) 1.2 % Normal 0.2-2.0 [facility] Comment on above: Performed By: #### C MADM, BNP, CMP #### [facility] [address] [place] [address] Dr. Dianna Alcocer EO # 0.1 103/ul Normal 0.0-0.7 [facility] Comment on above: Performed By: #### C MADM, BNP, CMP #### [facility] [address] [place] [address] Dr. Dianna Alcocer Eosinophils/100 WBC (Bld) 1.9 % Normal 0.9-7.0 [facility] Comment on above: Performed By: #### C MADM, BNP, CMP #### [facility] [address] [place] [address] Dr. Dianna Alcocer Erythrocyte distribution width (RBC) [Ratio] 12.9 % Normal 11.0-15.0 [facility] Comment on above: Performed By: #### C MADM, BNP, CMP #### [facility] [address] [place] [address] Dr. Dianna Alcocer Hematocrit (Bld) [Volume fraction] 40.4 % Normal 36.0-48.0 [facility] Comment on above: Performed By: #### C MADM, BNP, CMP #### [facility] [address] [place] [address] Dr. Dianna Alcocer Hemoglobin (Bld) [Mass/Vol] 13.9 g/dL Normal 12.0-16.0 [facility] Comment on above: Performed By: #### C MADM, BNP, CMP #### [facility] [address] [place] [address] Dr. Dianna Alcocer IG # 0.01 10e3/ul Normal 0.00-0.03 [facility] Comment on above: Performed By: #### C MADM, BNP, CMP #### [facility] [address] [place] [address] Dr. Dianna Alcocer IG % 0.2 % Normal 0.0-0.5 [facility] Comment on above: Performed By: #### C MADM, BNP, CMP #### [facility] [address] [place] [address] Dr. Dianna Alcocer LYMPH # 1.7 103/ul Normal 1.2-3.8 [facility] Comment on above: Performed By: #### C MADM, BNP, CMP #### [facility] [address] [place] [address] Dr. Dianna Alcocer Lymphocytes/100 WBC (Bld) 39.3 % Normal 20.5-60.0 [facility] Comment on above: Performed By: #### C MADM, BNP, CMP #### [facility] [address] [place] [address] Dr. Dianna Alcocer MANUAL DIFF REQ NO Normal [facility] Comment on above: Performed By: #### C MADM, BNP, CMP #### [facility] [address] [place] [address] Dr. Dianna Alcocer MCH (RBC) [Entitic mass] 41.0 pg Critically high 26.7-34.0 [facility] Comment on above: Performed By: #### C MADM, BNP, CMP #### [facility] [address] [place] [address] Dr. Dianna Alcocer MCHC (RBC) [Mass/Vol] 34.4 g/dL Normal 29.9-35.2 [facility] Comment on above: Performed By: #### C MADM, BNP, CMP #### [facility] [address] [place] [address] Dr. Dianna Alcocer MCV (RBC) [Entitic vol] 119.2 fL Critically high 81.0-99.0 [facility] Comment on above: Result Comment: 2+ m acrocytosis Performed By: #### C MADM, BNP, CMP #### [facility] [address] [place] [address] Dr. Dianna Alcocer MONO # 0.6 103/ul Normal 0.3-0.8 [facility] Comment on above: Performed By: #### C MADM, BNP, CMP #### [facility] [address] [place] [address] Dr. Dianna Alcocer Monocytes/100 WBC (Bld) 13.1 % Critically high 1.7-12.0 [facility] Comment on above: Performed By: #### C MADM, BNP, CMP #### [facility] [address] [place] [address] Dr. Dianna Alcocer NEUT # 1.9 103/ul Normal 1.4-6.5 [facility] Comment on above: Performed By: #### C MADM, BNP, CMP #### [facility] [address] [place] [address] Dr. Dianna Alcocer Neutrophils/100 WBC (Bld) 44.3 % Normal 43.0-75.0 [facility] Comment on above: Performed By: #### C MADM, BNP, CMP #### [facility] [address] [place] [address] Dr. Dianna Alcocer Platelet mean volume (Bld) [Entitic vol] 9.9 fL Normal 9.5-13.5 [facility] Comment on above: Performed By: #### C MADM, BNP, CMP #### [facility] [address] [place] [address] Dr. Dianna Alcocer PLT 274 103/ul Normal 150-450 [facility] Comment on above: Performed By: #### C MADM, BNP, CMP #### [facility] [address] [place] [address] Dr. Dianna Alcocer RBC 3.39 106/ul Critically low 4.20-5.40 [facility] Comment on above: Performed By: #### C MADM, BNP, CMP #### [facility] [address] [place] [address] Dr. Dianna Alcocer WBC 4.3 103/ul Normal 4.0-11.0 [facility] Comment on above: Performed By: #### C MADM, BNP, CMP #### [facility] [address] [place] [address] HEAD WO CONon [...] COLLIN COLEMAN Date: 2022-08-23 11:05 Normal [facility] CULTURE URINEon 08-23-2022 CULTURE URINE Culture Observations : No growth Normal [facility] Comment on above: Performed By: #### C MADM, BNP, CMP #### [facility] [address] [address] [address] Dianna Alcocer ER URINE PROFILEon 2 Bilirubin Ql (U) Negative Normal NEGATIVE [facility] Comment on above: Performed By: #### C MADM, BNP, CMP #### [facility] [address] [address] [address] Dianna Alcocer Clarity (U) SL CLOUDY Abnormal CLEAR [facility] Comment on above: Performed By: #### C MADM, BNP, CMP #### [facility] [address] [address] [address] Dianna Alcocer Color (U) LT. YELLOW Normal YELLOW [facility] Comment on above: Performed By: #### C MADM, BNP, CMP #### [facility] [address] [address] [address] Dianna Alcocer ERUAHD A micrscopic examination will be performed if indicated. Normal [facility] Comment on above: Performed By: #### C MADM, BNP, CMP #### [facility] [address] [address] [address] Dianna Alcocer Glucose Ql (U) Negative Normal NEGATIVE [facility] Comment on above: Performed By: #### C MADM, BNP, CMP #### [facility] [address] [address] [address] Dianna Alcocer Hemoglobin Ql (U) LARGE Abnormal NEGATIVE [facility] Comment on above: Performed By: #### C MADM, BNP, CMP #### [facility] [address] [address] [address] Dianna Alcocer Ketones Ql (U) Negative Normal NEGATIVE [facility] Comment on above: Performed By: #### C MADM, BNP, CMP #### [facility] [address] [place] [address] Dr. Dianna Alcocer LEUKOCYTES SMALL Abnormal NEGATIVE [facility] Comment on above: Performed By: #### C MADM, BNP, CMP #### [facility] [address] [place] [address] Dr. Dianna Alcocer Nitrite Ql (U) Negative Normal NEGATIVE [facility] Comment on above: Performed By: #### C MADM, BNP, CMP #### [facility] [address] [place] [address] Dr. Dianna Alcocer pH (U) 6.0 [pH] Normal 5-9 [facility] Comment on above: Performed By: #### C MADM, BNP, CMP #### [facility] [address] [place] [address] Dr. Dianna Alcocer SPEC GRAVITY 1.020 Normal 1.005-<=1.025 [facility] Comment on above: Performed By: #### C MADM, BNP, CMP #### [facility] [address] [place] [address] Dr. Dianna Alcocer UA PROTEIN Negative Normal NEGATIVE/ TRACE [facility] Comment on above: Performed By: #### C MADM, BNP, CMP #### [facility] [address] [place] [address] Dr. Dianna Alcocer UR MICRO IND INDICATED Normal [facility] Comment on above: Performed By: #### C MADM, BNP, CMP #### [facility] [address] [address] [address] Dianna Alcocer Urobilinogen Qn (U) 0.2 {Simone'U}/dL Normal 0.2 - 1. 0 [facility] Comment on above: Performed By: #### C MADM, BNP, CMP #### [facility] [address] [place] [address] Dr. Dianna Alcocer PROF 14(COMP METB)on 022 Albumin [Mass/Vol] 4.2 g/dL Normal 3.4-5.0 [facility] Comment on above: Performed By: #### H STROPN, CMP #### [facility] [address] [place] [address] Dr. Dianna Alcocer Albumin/Globulin [Mass ratio] 1.4 {ratio} Normal [facility] Comment on above: Performed By: #### H STROPN, CMP #### [facility] [address] [place] [address] Dr. Dianna Alcocer ALP [Catalytic activity/Vol] 65 U/L Normal 46-116 [facility] Comment on above: Performed By: #### H STROPN, CMP #### [facility] [address] [place] [address] Dr. Dianna Alcocer ALT [Catalytic activity/Vol] 16 U/L Normal 14-59 [facility] Comment on above: Performed By: #### H STROPN, CMP #### [facility] [address] [place] [address] Dr. Dianna Alcocer Anion gap [Moles/Vol] 10.6 mmol/L Normal [facility] Comment on above: Performed By: #### H STROPN, CMP #### [facility] [address] [place] [address] Dr. Dianna Alcocer AST [Catalytic activity/Vol] 20 U/L Normal 15-37 [facility] Comment on above: Performed By: #### H STROPN, CMP #### [facility] [address] [address] [address] Dianna Alcocer Bilirubin [Mass/Vol] 0.7 mg/dL Normal 0.2-1.0 [facility] Comment on above: Performed By: #### H STROPN, CMP #### [facility] [address] [address] [address] Dianna Alcocer Calcium [Mass/Vol] 8.9 mg/dL Normal 8.5-10.1 [facility] Comment on above: Performed By: #### H STROPN, CMP #### [facility] [address] [address] [address] Dianna Alcocer Chloride [Moles/Vol] 101 mmol/L Normal 98-107 [facility] Comment on above: Performed By: #### H STROPN, CMP #### [facility] [address] [place] [address] Dr. Dianna Alcocer CO2 [Moles/Vol] 27.4 mmol/L Normal 21.0-32.0 [facility] Comment on above: Performed By: #### H STROPN, CMP #### [facility] [address] [place] [address] Dr. Dianna Alcocer Creatinine [Mass/Vol] 1.03 mg/dL Critically high 0.55-1.02 [facility] Comment on above: Performed By: #### H STROPN, CMP #### [facility] [address] [place] [address] Dr. Dianna Alcocer EGFR-AF MONTENEGRIN >60 Normal >=60 [facility] Comment on above: Performed By: #### H STROPN, CMP #### [facility] [address] [place] [address] Dr. Dianna Alcocer EGFR-NON AF MONTENEGRIN 51 mL/min/1.73m2 Critically low >=60 [facility] Comment on above: Performed By: #### H STROPN, CMP #### [facility] [address] [place] [address] Dr. Dianna Alcocer Globulin (S) [Mass/Vol] 3.1 g/dL Normal [facility] Comment on above: Performed By: #### H STROPN, CMP #### [facility] [address] [address] [address] Dianna Alcocer Glucose [Mass/Vol] 99 mg/dL Normal 74-106 [facility] Comment on above: Performed By: #### H STROPN, CMP #### [facility] [address] [address] [address] Dianna Alcocer Potassium [Moles/Vol] 4.0 mmol/L Normal 3.5-5.1 [facility] Comment on above: Performed By: #### H STROPN, CMP #### [facility] [address] [address] [address] Dianna lAcocer Protein [Mass/Vol] 7.3 g/dL Normal 6.4-8.2 [facility] Comment on above: Performed By: #### H STROPN, CMP #### [facility] [address] [address] [address] Dianna Alcocer Sodium [Moles/Vol] 135 mmol/L Critically low 136-145 [facility] Comment on above: Performed By: #### H STROPN, CMP #### [facility] [address] [address] [address] Dianna Alcocer Urea nitrogen [Mass/Vol] 8.0 mg/dL Normal 7.0-18.0 [facility] Comment on above: Performed By: #### H STROPN, CMP #### [facility] [address] [address] [address] Dianna Alcocer Urea nitrogen/Creatinine [Mass ratio] 7.8 mg/mg Normal [facility] Comment on above: Performed By: #### H STROPN, CMP #### [facility] [address] [address] [address] Dianna Alcocer TROPONIN, HIGH SENSITIVITYon 08-23-2022 HSTROP 8.5 pg/mL Normal 4.0-51.3 [facility] Comment on above: Result Comment: CUT- OFF POINTS HAVE BEEN ESTABLISHED BASED ON THE FOURTH UNIVERSAL DEFINITIONS OF MYOCARDIAL INFARCTION. THE UPPER REFERENCE LIMIT (URL) OF TROPONIN, DEFINED THE 99TH PERCENTILE OF cTnI DISTRIBUTION IN A REFERENCE POPULATION, HAS BEEN CONFIRMED THE DECISION THRESHOLD FOR TX DIAGNOSIS. Performed By: #### H STROPN, CMP #### [facility] [address] [address] [address] Dianna Alcocer URINE MICROSCOPIC ONLYon BACTERIA SMALL Abnormal NONE SEEN [facility] Comment on above: Performed By: #### C MADM, BNP, CMP #### [facility] [address] [address] [address] Dianna Alcocer Bacteria identified Cx Nom (U) INDICATED Normal [facility] Comment on above: Performed By: #### C MADM, BNP, CMP #### [facility] [address] [place] [address] Dr. Dianna Alcocer CAST NONE SEEN Normal NONE SEEN [facility] Comment on above: Performed By: #### C MADM, BNP, CMP #### [facility] [address] [place] [address] Dr. Dianna Alcocer Crystals LM Nom (Urine sed) NONE SEEN Normal NONE SEEN [facility] Comment on above: Performed By: #### C MADM, BNP, CMP #### [facility] [address] [place] [address] Dr. Dianna Alcocer Epithelial cells LM Ql (Urine sed) FEW Abnormal NONE SEEN /RARE [facility] Comment on above: Performed By: #### C MADM, BNP, CMP #### [facility] [address] [place] [address] Dr. Dianna Alcocer MUCOUS NONE SEEN Normal NONE SEEN [facility] Comment on above: Performed By: #### C MADM, BNP, CMP #### [facility] [address] [place] [id number] Dr. Dianna Alcocer RBC 0-2 Normal 0-2 [facility] Comment on above: Performed By: #### C MADM, BNP, CMP #### [facility] [address] [place] [address] Dr. Dianna Alcocer WBC 2-5 Abnormal NONE SEEN [facility] Comment on above: Performed By: #### C MADM, BNP, CMP #### [facility] [address] [place] [address] Dr. Dianna Alcocer XR CHEST 1 Von [...] by: SOTERO GOMEZ Date: 2022-08-23 10:29 Normal [facility] CULTURE URINEon 07-30-2022 CULTURE URINE Isolate 1 [...] Trimethoprim/Sulfameth oxazole <=20 S F Normal [facility] Comment on above: Performed By: #### C MADM, BNP, CMP #### [facility] [address] ABD/PELV W CONon [...] LUZ GRIDER Date: 2022-05-08 10:36 Normal [facility] PROF CHEM 8 (BAS METB)on Anion gap [Moles/Vol] 8.4 mmol/L Normal [facility] Comment on above: Performed By: #### C MADM, BNP, CMP #### [facility] [address] [address] [address] Dianna Alcocer Calcium [Mass/Vol] 8.9 mg/dL Normal 8.5-10.1 [facility] Comment on above: Performed By: #### C MADM, BNP, CMP #### [facility] [address] [address] [address] Dianna Alcocer Chloride [Moles/Vol] 103 mmol/L Normal 98-107 [facility] Comment on above: Performed By: #### C MADM, BNP, CMP #### [facility] [address] [address] [address] Dianna Alcocer CO2 [Moles/Vol] 28.7 mmol/L Normal 21.0-32.0 [facility] Comment on above: Performed By: #### C MADM, BNP, CMP #### [facility] [address] [address] [address] Dianna Alcocer Creatinine [Mass/Vol] 0.95 mg/dL Normal 0.55-1.02 [facility] Comment on above: Performed By: #### C MADM, BNP, CMP #### [facility] [address] [address] [address] Dianna Alcocer EGFR-AF MONTENEGRIN >60 Normal >=60 [facility] Comment on above: Performed By: #### C MADM, BNP, CMP #### [facility] [address] [address] [address] Dianna Alcocer EGFR-NON AF MONTENEGRIN 56 mL/min/1.73m2 Critically low >=60 [facility] Comment on above: Performed By: #### C MADM, BNP, CMP #### [facility] [address] [address] [address] Dianna Alcocer Glucose [Mass/Vol] 91 mg/dL Normal 74-106 [facility] Comment on above: Performed By: #### C MADM, BNP, CMP #### [facility] [address] [address] [address] Dianna Alcocer Potassium [Moles/Vol] 5.1 mmol/L Normal 3.5-5.1 [facility] Comment on above: Performed By: #### C MADM, BNP, CMP #### [facility] [address] [address] [address] Dianna Alcocer Sodium [Moles/Vol] 135 mmol/L Critically low 136-145 [facility] Comment on above: Performed By: #### C MADM, BNP, CMP #### [facility] [address] [address] [address] Dianna Alcocer Urea nitrogen [Mass/Vol] 13.0 mg/dL Normal 7.0-18.0 [facility] Comment on above: Performed By: #### C MADM, BNP, CMP #### [facility] [address] [address] [address] Dianna Alcocer Urea nitrogen/Creatinine [Mass ratio] 13.7 mg/mg Normal [facility] Comment on above: Performed By: #### C MADM, BNP, CMP #### [facility] [address] [address] [address] Dianna Alcocer MG MAMM DIAGNOSTIC 3D KIRT CA Don 02-09-2022 MG MAMM DIAGNOSTIC 3D KIRT CAD Patient: JOSEFA [place]ST[place] Exam Date: 02/09/2022 : 1940 Gender:F Ordering : DR TITO HILLMAN . Admission #: [id number] Family : Order #: [id number] CLICK HERE TO VIEW EXAM RADIOLOGY REPORT [...] prostate cancer at age 70. LOCATION: [facility] BREAST COMPOSITION: Almost entirely fatty. FINDINGS: [...] Grider M.D. on 02/09/2022 at 08:27 Normal [facility] Vital Signs Date Time Vital Sign Value Performing Clinician iWndy khan 12-01-2023 13:06-0500 Body height 157.5 cm Jr. Stewart DO Work Phone: [facility] 12-01-2023 13:06-0500 Body mass index (BMI) [Ratio] 19.94 kg/m2 Jr. Stepanic DO Work Phone: [facility] 12-01-2023 13:06-0500 Body weight 49.44 kg Jr. Stepanic DO Work Phone: [facility] 07-29-2023 10:04-0400 Body temperature 97.3 [degF] Rod Roman MD Work Phone: [facility] 07-29-2023 10:04-0400 Body weight 56.97 kg Rod Roman MD Work Phone: [facility] 07-29-2023 10:04-0400 Diastolic blood pressure 71 mm[Hg] Rod Roman MD Work Phone: [facility] 07-29-2023 10:04-0400 Heart rate 63 /min Rod Roman MD Work Phone: [facility] 07-29-2023 10:04-0400 Respiratory rate 16 /min Rod Roman MD Work Phone: [facility] 07-29-2023 10:04-0400 SaO2% (BldA) [Mass fraction] 97 % Rod Roman MD Work Phone: [facility] 07-29-2023 10:04-0400 Systolic blood pressure 175 mm[Hg] Rod Roman MD Work Phone: [facility] 04-08-2023 10:14-0400 Body height 157.5 cm Rod Roman MD Work Phone: [facility] 04-08-2023 10:14-0400 Body temperature 97.81 [degF] Rod Roman MD Work Phone: [facility] 04-08-2023 10:14-0400 Body weight 56.7 kg Rod Roman MD Work Phone: [facility] 04-08-2023 10:14-0400 Diastolic blood pressure 74 mm[Hg] Rod Roman MD Work Phone: [facility] 04-08-2023 10:14-0400 Heart rate 77 /min Rod Roman MD Work Phone: [facility] 04-08-2023 10:14-0400 Respiratory rate 16 /min Rod Roman MD Work Phone: [facility] 04-08-2023 10:14-0400 SaO2% (BldA) [Mass fraction] 99 % Rod Roman MD Work Phone: [facility] 04-08-2023 10:14-0400 Systolic blood pressure 161 mm[Hg] Rod Roman MD Work Phone: [facility] 12-17-2022 10:29-0500 Body height 157.5 cm Rod Roman MD Work Phone: [facility] 12-17-2022 10:29-0500 Body temperature 97.5 [degF] Rod Roman MD Work Phone: [facility] 12-17-2022 10:29-0500 Body weight 55.97 kg Rod Roman MD Work Phone: [facility] 12-17-2022 10:29-0500 Diastolic blood pressure 81 mm[Hg] Rod Roman MD Work Phone: [facility] 12-17-2022 10:29-0500 Heart rate 66 /min Rod Roman MD Work Phone: [facility] 12-17-2022 10:29-0500 Respiratory rate 16 /min Rod Roman MD Work Phone: [facility] 12-17-2022 10:29-0500 SaO2% (BldA) [Mass fraction] 97 % Rod Roman MD Work Phone: [facility] 12-17-2022 10:29-0500 Systolic blood pressure 159 mm[Hg] Rod Roman MD Work Phone: [facility] 07-30-2022 09:55-0400 Body height 157.5 cm Rod Roman MD Work Phone: [facility] 07-30-2022 09:55-0400 Body temperature 97.59 [degF] Rod Roman MD Work Phone: [facility] 07-30-2022 09:55-0400 Body weight 58.06 kg Rod Roman MD Work Phone: [facility] 07-30-2022 09:55-0400 Diastolic blood pressure 71 mm[Hg] Rod Roman MD Work Phone: [facility] 07-30-2022 09:55-0400 Heart rate 70 /min Rod Roman MD Work Phone: [facility] 07-30-2022 09:55-0400 Respiratory rate 16 /min Rod Roman MD Work Phone: [facility] 07-30-2022 09:55-0400 SaO2% (BldA) [Mass fraction] 98 % Rod Roman MD Work Phone: [facility] 07-30-2022 09:55-0400 Systolic blood pressure 153 mm[Hg] Rod Roman MD Work Phone: [facility] 04-30-2022 11:26-0400 Body temperature 97.11 [degF] Ma Sand Work Phone: [facility] 04-30-2022 11:26-0400 Diastolic blood pressure 56 mm[Hg] Ma Sand Work Phone: [facility] 04-30-2022 11:26-0400 Heart rate 68 /min Ma Sand Work Phone: [facility] 04-30-2022 11:26-0400 Respiratory rate 16 /min Ma Sand Work Phone: [facility] 04-30-2022 11:26-0400 SaO2% (BldA) [Mass fraction] 98 % Ma Sand Work Phone: [facility] 04-30-2022 11:26-0400 Systolic blood pressure 113 mm[Hg] Ma Sand Work Phone: [facility] 04-02-2022 11:24-0400 Body height 158.1 cm Ma Sand Work Phone: [facility] 04-02-2022 11:24-0400 Body temperature 97.9 [degF] Ma Sand Work Phone: [facility] 04-02-2022 11:24-0400 Body weight 58.51 kg Ma Sand Work Phone: [facility] 04-02-2022 11:24-0400 Diastolic blood pressure 52 mm[Hg] Ma Sand Work Phone: [facility] 04-02-2022 11:24-0400 Heart rate 66 /min Ma Sand Work Phone: [facility] 04-02-2022 11:24-0400 Respiratory rate 16 /min Ma Sand Work Phone: [facility] 04-02-2022 11:24-0400 SaO2% (BldA) [Mass fraction] 97 % Ma Sand Work Phone: [facility] 04-02-2022 11:24-0400 Systolic blood pressure 119 mm[Hg] Ma Sand Work Phone: [facility] 03-05-2022 10:58-0400 Body height 158.1 cm Rod Roman MD Work Phone: [facility] 03-05-2022 10:58-0400 Body temperature 97.81 [degF] Rod Roman MD Work Phone: [facility] 03-05-2022 10:58-0400 Body weight 58.79 kg Rod Roman MD Work Phone: [facility] 03-05-2022 10:58-0400 Diastolic blood pressure 87 mm[Hg] Rod Roman MD Work Phone: [facility] 03-05-2022 10:58-0400 Heart rate 64 /min Rod Roman MD Work Phone: [facility] 03-05-2022 10:58-0400 Respiratory rate 16 /min Rod Roman MD Work Phone: [facility] 03-05-2022 10:58-0400 SaO2% (BldA) [Mass fraction] 98 % Rod Roman MD Work Phone: [facility] 03-05-2022 10:58-0400 Systolic blood pressure 178 mm[Hg] Rod Roman MD Work Phone: [facility] Encounters Encounter Date Encounter Type Care Provider Facility Start: 07-06-2024 End: 07-06-2024 ambulatory TITO CARNESERER Not Available Start: 06-30-2024 ambulatory [facility] Start: 06-28-2024 End: 06-30-2024 Emergency department patient visit [facility] Start: 06-28-2024 ambulatory [facility] Start: 04-04-2024 Telephone encounter Rod bird MD Work Phone: Hematology/Oncology Comment on above: Lab Orders Start: 02-21-2024 End: 02-21-2024 ambulatory [facility] Start: 01-24-2024 End: 01-24-2024 ambulatory TITO NADERER Not Available Start: 01-05-2024 End: 01-05-2024 ambulatory [facility] Start: 12-15-2023 End: 12-22-2023 Evaluation and management of inpatient MICHAEL CONNOR [facility] Start: 12-01-2023 End: 01-31-2024 Office outpatient visit 25 minutes Jr. 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); Essential thrombocythemia (HCC) Start: 07-29-2023 End: 07-29-2023 ambulatory TITO HILLMAN Facility:[facility] Start: 04-08-2023 End: 04-08-2023 Nursing evaluation of [...] Start: 04-08-2023 End: 04-08-2023 ambulatory TITO HILLMAN Facility:[facility] Start: 02-19-2023 ambulatory [facility] Start: 02-19-2023 Encounter for preprocedural cardiovascular examination [facility] Start: 01-25-2023 End: 01-26-[address] TITO HILLMAN Facility: Start: 12-17-2022 End: 12-17-2022 Nursing evaluation of [...] encounter procedure Rod Roman MD Work Phone: [place] Start: 07-28-2022 End: 07-28-[address] TITO HILLMAN Facility:[facility] Start: 05-07-2022 End: 05-08-[address] TITO HILLMAN Facility:[facility] Start: 04-30-2022 End: 04-30-2022 Nursing evaluation of [...] 03-05-2022 Nursing evaluation of patient and report Ma Nurse Jackson Rizvi Work Phone: Hematology/Oncology Comment on above: [...] 10-31-2018 End: 11-12-2018 Patient encounter procedure DESTINEE SMART Facility:[facility] Plan of Treatment Date Care Activity Detail Author Start: 07-29-2026 Diabetes Screening Diabetes Screenin g [facility] Start: 04-08-2026 DIABETES SCREEN DIABETES SCREEN [facility] Start: 12-17-2025 DIABETES SCREEN DIABETES SCREEN [facility] Start: 07-30-2025 DIABETES SCREEN DIABETES SCREEN [facility] Start: 04-30-2025 DIABETES SCREEN DIABETES SCREEN [facility] Start: 04-02-2025 DIABETES SCREEN DIABETES SCREEN [facility] Start: 03-05-2025 DIABETES SCREEN DIABETES SCREEN [facility] Start: 07-02-2024 Influenza vaccination Influenz a Vaccine (Season Ended) [facility] Start: 04-17-2024 End: 04-04-2025 CBC W Auto Differential panel - Blood COMPLETE BLOOD COUNT AND DIFFERENTIAL Lab Routine 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 Expected: 04/17/2024 (Approximate), Expires: 04/04/2025 [facility] Comment on above: Expected: 04/17/2024 (Approximate), Expires: 04/04/2025 Start: 04-17-2024 End: 04-04-2025 Comprehensive metabolic 2000 panel - Serum or Plasma COMPREHENSIVE METABOLIC PANEL Lab Routine 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 Expected: 04/17/2024 (Approximate), Expires: 04/04/2025 [facility] Comment on above: Expected: 04/17/2024 (Approximate), Expires: 04/04/2025 Start: 04-17-2024 End: 04-04-2025 Lactate dehydrogenase [Enzymatic activity/volume] in Serum or Plasma LACTATE DEHYDROGENASE Lab Routine 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 Expected: 04/17/2024 (Approximate), Expires: 04/04/2025 [facility] Work Phone: Comment on above: Expected: 04/17/2024 (Approximate), Expires: 04/04/2025 Start: 04-17-2024 End: 04-17-2024 Follow-up encounter 04/17/2024 11:15 AM EDT Visit (SP) Office Hematology/Oncology [address] [address] Rod Roman MD [address] [place] [address] [place] [address] follow up Hematology/Oncology Comment on above: follow up Start: 04-17-2024 End: 04-17-2024 Patient encounter procedure 04/17/2024 11:00 AM EDT Office Visit [facility] [address] [place] [address] lab [facility] Comment on above: lab Start: 01-24-2024 End: 01-24-2024 Patient encounter procedure 01/24/2024 10:15 AM EDT Office Visit [facility] [address] [place] [address] Tito Hillman MD [address] [place] [address] [facility] Start: 11-18-2023 End: 07-29-2024 CBC W Auto Differential panel - Blood CBC + DIFF Lab Routine 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 (HCC) Expected: 11/18/2023 (Approximate), Expires: 07/29/2024 [facility] Work Phone: Comment on above: Expected: 11/18/2023 (Approximate), Expires: 07/29/2024 Start: 11-18-2023 End: 07-29-2024 Cobalamin (Vitamin B12) [Mass/volume] in Serum or Plasma VITAMIN B12 BLOOD Lab Routine 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 (HCC) Expected: 11/18/2023 (Approximate), Expires: 07/29/2024 [facility] Work Phone: Comment on above: Expected: 11/18/2023 (Approximate), Expires: 07/29/2024 Start: 11-18-2023 End: 07-29-2024 Comprehensive metabolic 2000 panel - Serum or Plasma COMP METABOLIC PANEL Lab Routine 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 (HCC) Expected: 11/18/2023 (Approximate), Expires: 07/29/2024 [facility] Work Phone: Comment on above: Expected: 11/18/2023 (Approximate), Expires: 07/29/2024 Start: 11-18-2023 End: 07-29-2024 Ferritin [Mass/volume] in Serum or Plasma FERRITIN BLD Lab Routine 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 (HCC) Expected: 11/18/2023 (Approximate), Expires: 07/29/2024 [facility] Work Phone: Comment on above: Expected: 11/18/2023 (Approximate), Expires: 07/29/2024 Start: 11-18-2023 End: 07-29-2024 Folate [Mass/volume] in Serum or Plasma FOLATE SERUM Lab Routine 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 (HCC) Expected: 11/18/2023 (Approximate), Expires: 07/29/2024 [facility] Work Phone: Comment on above: Expected: 11/18/2023 (Approximate), Expires: 07/29/2024 Start: 11-18-2023 End: 07-29-2024 Iron and Iron binding capacity panel - Serum or Plasma IRON + TIBC Lab Routine 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 (HCC) Expected: 11/18/2023 (Approximate), Expires: 07/29/2024 [facility] Work Phone: Comment on above: Expected: 11/18/2023 (Approximate), Expires: 07/29/2024 Start: 11-01-2023 Advance Directive Discussion Advance Directive Discussion [facility] Start: 11-01-2023 Behavioral Health Screening Behavioral Health Screening [facility] Start: 09-23-2023 End: 07-29-2024 CBC W Auto Differential panel - Blood CBC + DIFF Lab Routine 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 (HCC) Expected: 09/23/2023 (Approximate), Expires: 07/29/2024 [facility] Work Phone: Comment on above: Expected: 09/23/2023 (Approximate), Expires: 07/29/2024 Start: 09-23-2023 End: 07-29-2024 Cobalamin (Vitamin B12) [Mass/volume] in Serum or Plasma VITAMIN B12 BLOOD Lab Routine 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 (HCC) Expected: 09/23/2023 (Approximate), Expires: 07/29/2024 [facility] Work Phone: Comment on above: Expected: 09/23/2023 (Approximate), Expires: 07/29/2024 Start: 09-23-2023 End: 07-29-2024 Comprehensive metabolic 2000 panel - Serum or Plasma COMP METABOLIC PANEL Lab Routine 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 (HCC) Expected: 09/23/2023 (Approximate), Expires: 07/29/2024 [facility] Work Phone: Comment on above: Expected: 09/23/2023 (Approximate), Expires: 07/29/2024 Start: 09-23-2023 End: 07-29-2024 Ferritin [Mass/volume] in Serum or Plasma FERRITIN BLD Lab Routine 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 (HCC) Expected: 09/23/2023 (Approximate), Expires: 07/29/2024 [facility] Work Phone: Comment on above: Expected: 09/23/2023 (Approximate), Expires: 07/29/2024 Start: 09-23-2023 End: 07-29-2024 Folate [Mass/volume] in Serum or Plasma FOLATE SERUM Lab Routine 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 (HCC) Expected: 09/23/2023 (Approximate), Expires: 07/29/2024 [facility] Work Phone: Comment on above: Expected: 09/23/2023 (Approximate), Expires: 07/29/2024 Start: 09-23-2023 End: 07-29-2024 Iron and Iron binding capacity panel - Serum or Plasma IRON + TIBC Lab Routine 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 (HCC) Expected: 09/23/2023 (Approximate), Expires: 07/29/2024 [facility] Work Phone: Comment on above: Expected: 09/23/2023 (Approximate), Expires: 07/29/2024 Start: 07-02-2023 Covid-19 Vaccine ( season) Covid-19 Vaccine ( season) [facility] Start: 07-02-2023 Influenza vaccination Influenza Vacc ine (#1) [facility] Start: 12-19-2022 Covid-19 Vaccine (6 - Pfizer series) Covid-19 Vaccine (6 - Pfizer series) [facility] Start: 11-01-2022 ADVANCE DIRECTIVE DISCUSSION ADVANCE DIRECTIVE DISCUSSION [facility] Start: 11-01-2022 DEPRESSION ASSESSMENT DEPRESSION ASS ESSMENT [facility] Start: 07-18-2022 COVID-19 VACCINE (5 - Booster for Pfizer series) COVID-19 VACCINE (5 - Booster for Pfizer series) [facility] Start: 07-02-2022 Influenza vaccination INFLUENZA (#1) [facility] Start: 05-28-2022 End: 07-28-2022 VITAMIN B12 BLOOD VITAMIN B12 BLOOD Lab Routine 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 Osteopenia of multiple sites Expected: 05/28/2022 (Approximate), Expires: 07/28/2022 [facility] Work Phone: Comment on above: Expected: 05/28/2022 (Approximate), Expires: 07/28/2022 Start: 12-28-2021 COVID-19 VACCINE (4 - Booster for Pfizer series) COVID-19 VACCINE (4 - Booster for Pfizer series) [facility] Start: 11-01-2021 ADVANCE DIRECTIVE DISCUSSION ADVANCE DIRECTIVE DISCUSSION [facility] Start: 11-01-2021 DEPRESSION ASSESSMENT DEPRESSION ASS ESSMENT [facility] Start: 2005 BONE DENSITY BONE DENSITY [facility] Start: 2005 Bone Density Screening Bone Density Screening [facility] Start: 2005 Screening for osteoporosis Bone Density Screening [facility] Start: 2000 RSV Vaccine (1 - 1-d ose 60+ series) RSV Vaccine (1 - 1-dose 60+ series) [facility] Start: 1990 SHINGRIX VACCINE (1 of 2) SHINGRIX VACCINE (1 of 2) [facility] Start: 1959 Urine microalbumin profile [facility] Start: 1940 Medicare Annual Wellness (AWV) Medicare Annual Wellness (AWV) [facility] XR Hip - left 3 Views XR hip lef t 2 or 3 views Imaging Routine Left hip pain 12/01/2023 1:10 PM EST [facility] Healthcare Work Phone: [facility] Immunizations Immunization Date Immunization Notes Care Provider Glenn chatman 08-18-2022 influenza, high-dose , quadrivalent vaccine (FLUZONE HIGH DOSE QUADRIVALENT) Rod Roman MD Work Phone: [facility] 08-18-2022 influenza virus vacc ine, unspecified formulation Rod Roman MD Work Phone: [facility] 08-06-2021 influenza, high-dose , quadrivalent vaccine (FLUZONE HIGH DOSE QUADRIVALENT) Rod Roman MD Work Phone: [facility] [place] 12[place]2020 COVID-19 vaccine, ag e 12+ yr (PFIZER-BIONTECH - PURPLE TOP) Rod Roman MD Work Phone: [facility] 11-30-2020 COVID-19 vaccine, ag e 12+ yr (PFIZER-BIONTECH - PURPLE TOP) Rod Roman MD Work Phone: [facility] 08-19-2020 influenza, high-dose , quadrivalent vaccine (FLUZONE HIGH DOSE QUADRIVALENT) Rod Roman MD Work Phone: [facility] 09-09-2019 influenza, high dose seasonal, preservative-free Rod Roman MD Work Phone: [facility] 07-12-2018 influenza, high dose seasonal, preservative-free Rod Roman MD Work Phone: [facility] 09-25-2017 influenza, high dose seasonal, preservative-free Rod Roman MD Work Phone: [facility] 08-12-2016 influenza, injectabl e, quadrivalent, preservative free Rod Roman MD Work Phone: [facility] 08-12-2016 pneumococcal polysaccharide vaccine, 23 valent Rod Roman MD Work Phone: [facility] 07-11-2016 influenza, high dose seasonal, preservative-free Rod Roman MD Work Phone: [facility] 06-15-2015 influenza, high dose seasonal, preservative-free Rod Roman MD Work Phone: [facility] 06-15-2015 pneumococcal conjuga te vaccine, 13 valent Rod Roman MD Work Phone: [facility] 08-08-2014 influenza virus vacc ine, whole virus Rod Roman MD Work Phone: [facility] 07-12-2010 pneumococcal conjuga te vaccine, 7 valent Rod Roman MD Work Phone: [facility] Payers Date Payer Category Payer Medicare MEDICARE MEDICAR E A AND B [id number] 2005-Present [phone] [address] [address] [place] [address] Medicare [id number] 2005 Medicare [id number] 2005 Unknown HOSPITAL/MEDICAL GENERIC MEDICAL GENERIC [id number] 2005-Present [phone] [address] [address] [place] [address] Indemnity [id number] 2005 Unknown [id number] [id number] .[id number] 1959 Medicare [id number] 1959 Unknown [id number] 1940 Unknown [id number] 2.16.840.1.285227.3.579.2.647 1940 Unknown [id number] 2.16.840.1.441402.3.579.2.593 1940 Unknown [id number] 2.16.840.1.361022.3.579.2.593 1940 Unknown [id number] 2.16.840.1.730182.3.579.2.593 1940 Unknown [id number] 2.16.840.1.860852.3.579.2.593 1940 Unknown [id number] 2.16.840.1.119727.3.579.2.593 1940 Unknown [id number] 2.16.840.1.190952.3.579.2.593 1940 Unknown [id number] 2.16.840.1.961725.3.579.2.593 1940 Unknown [id number] 2.16.840.1.344389.3.579.2.175 1940 Unknown [id number] 2.16.840.1.702473.3.579.2.175 1940 Unknown [id number] 2.16.840.1.382333.3.579.2.175 1940 Unknown [id number] 2.16.840.1.970392.3.579.2.128 6 1940 Unknown [id number] 2.16.840.1.280845.3.579.2.128 6 1940 Unknown [id number] 2.16.840.1.702506.3.579.2.128 6 1940 Unknown [id number] 2.16.840.1.668306.3.579.2.128 6 1940 Unknown [id number] 2.16.840.1.829176.3.579.2.125 9 1940 Unknown [id number] 2.16.840.1.411626.3.579.2.125 9 1940 Unknown [id number] 2.16.840.1.472367.3.579.2.125 9 1940 Unknown [id number] 2.16.840.1.545587.3.579.2.125 9 1940 Unknown [id number] 2.16.840.1.216028.3.579.2.125 9 1940 Unknown [id number] 2.16.840.1.353125.3.579.2.125 9 Medicare [id number] Social History Date Type Detail Facility Start: 11-11-2020 End: 10-15-2023 Tobacco smoking status NHIS Ex-smoker [facility] Start: 12-30-2009 End: 08-01-2020 History of tobacco use Current smoker [facility] Start: 11-11-2020 End: 04-08-2023 Cigarettes smoked current (pack per day) - Reported 1 [facility] Start: 11-11-2020 Tobacco use and exposure Smoke less tobacco non-user [facility] Start: 03-05-2022 End: 04-08-2023 Alcohol intake Current drinker of alcohol (finding) [facility] Start: 1940 Sex Assigned At Not on file [facility] Start: 02-23-2022 End: 07-30-2022 Exposure to SARS-CoV-2 (event) Not sure [facility] Start: 12-30-2009 End: 08-01-2020 History of tobacco use Cigarette Smoker [facility] Start: 04-08-2023 End: 12-01-2023 Tobacco use panel [facility] Adult Depression Scr eening Assessment 0 [facility] Clinical Notes 01-30-2022 to 04-04-2024 Telephone Encounter - Janeth Bright MA - 04/04/2024 10:31 AM EDTTelephone Encounter - Janeth Bright MA - 04/04/2024 10:31 AM EDTJr. Kaylan Stewart DO - 12/01/2023 1:00 PM EST Note Date & Type Note Facility 04-04-2024 Telephone encounter Note Patient has an appt on 04/17/24. Would you like labs-her labs are , please place orders. Janeth Bright MA [facility] 04-04-2024 Miscellaneous Notes Patient has an appt on 04/17/24. Would you like labs-her labs are , please place orders. Janeth Bright MA documented in this encounter [facility] 12-01-2023 History of Presen t illness Narrative Images from the original note were not included. HISTORY OF PRESENT ILLNESS: EST PT Josefa Castillo is an 83 y.o. @ female. (EST PT; MOST RECENT VISIT WITH ALEXANDREA) S/P (L) HIP FX W/ ORIF 08/26/23 (13WKS 6DAY) @ [facility] IN [place] - PT C/O PAIN XRAY LT HIP [...] 100 mg, Oral, 2 times daily HYDROcodone-acetaminophen ([place]) 5-325 MG tablet 1 tablet, Oral, 4 [...] recommending a referral to Dr. Christine in [place] with patient's verbal agreeance. We have discussed her HEP and restrictions and will see her back on a prn basis. Lupe Field MA documented in this encounter [facility] 07-29-2023 Instructions Rod Roman MD - 07/29/2023 10:45 AM EDT Labs to include B12 in 8 weeks. Labs every 8 weeks, CBC, CMP Continue current regimen of Hydrea 500 mg daily Wednesday - Wednesday but increase to 2 tablets (1000 mg) on Saturdays and Sundays) B12 Shot today and every 8 weeks. RTC in 16 weeks documented in this encounter [facility] 07-29-2023 History of Presen t illness Narrative Images from the original note were not included. NAME: Josefa Castillo CLINIC NO.: [id number] DATE OF SERVICE: July 29, 2023 (Carlos) [...] 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 She has been on various dosing through [...] month 3. Basal cell ca of right jain April 2023 PLAN: Labs to include B12 in 8 weeks. Labs every 8 weeks, CBC, CMP Continue current regimen of Hydrea 500 mg daily Wednesday - Wednesday but increase to 2 tablets (1000 mg) on Saturdays and Sundays) B12 Shot today and every 8 weeks. RTC in 16 weeks HPI: Updated Visit, July 29, 2023: Right jain was not a melanoma - basal cell. Labs reviewed and adjusted hydrea on weekends Otherwise is doing very well. Updated Visit, April 08, 2023: Says she's not doing well. Difficulty with vision Need records from right jain melanoma. Continues B12 shots every 8 weeks [...] the left side of head over the jain and into the jaw. No vision changes associated with pain. Intermittent and dull and pounding. Right jain at the corner of her eye lid [...] She was following with Dr. Bower in [facility]. Initially on 6 pills of hydrea. 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 She has not required other treatments. Also a history of iron deficiency and required iron infusions occasionally. She then moved [facility] in [address] 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 Rod Roman MD, [place], [place] CC: Tito Hillman MD [facility] [address] [facility] [id number] documented in this encounter [facility] 07-29-2023 Note HNO ID: [id number] Author: Rod Roman MD Service: ? Author Type: Physician Type: Progress Notes Filed: 08/01/2023 3:49 PM Note Text: NAME: Josefa Castillo CLINIC NO.: [id number] DATE OF SERVICE: July 29, 2023 (Carlos) [...] 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 She has been on various dosing through [...] month 3. Basal cell ca of right jain April 2023 PLAN: Labs to include B12 in 8 weeks. Labs every 8 weeks, CBC, CMP Continue current regimen of Hydrea 500 mg daily Wednesday - Wednesday but increase to 2 tablets (1000 mg) on Saturdays and Sundays) B12 Shot today and every 8 weeks. RTC in 16 weeks HPI: Updated Visit, July 29, 2023: Right jain was not a melanoma - basal cell. Labs reviewed and adjusted hydrea on weekends Otherwise is doing very well. Updated Visit, April 08, 2023: Says she's not doing well. Difficulty with vision Need records from right jain melanoma. Continues B12 shots every 8 weeks [...] the left side of head over the jain and into the jaw. No vision changes associated with pain. Intermittent and dull and pounding. Right jain at the corner of her eye lid [...] on Hydrea 50 (more content not included)... [facility] 04-08-2023 Nurse Note Patient Identification confirmed: yes. Injection given and documented on DEC per provider order. Janeth Bright MA documented in this encounter [facility] 04-08-2023 Note HNO ID: [id number] Author: Rod Roman MD Service: ? Author Type: Physician Type: Progress Notes Filed: 04/11/2023 2:03 PM Note Text: NAME: Josefa Castillo [facility] NO.: [id number] DATE OF SERVICE: April 08, 2023 (Carlos) [...] 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 Continues B12 shots every 8 weeks [...] the left side of head over the jain and into the jaw. No vision changes associated with pain. Intermittent and dull and pounding. Right jain at the corner of her eye lid [...] antibiotic last Mo (more content not included)... [facility] 04-08-2023 History of Presen t illness Narrative Images from the original note were not included. NAME: Josefa Castillo CLINIC NO.: [id number] DATE OF SERVICE: April 08, 2023 (stacimalindatremaine) Some elements in this clinic note that [...] 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 Continues B12 shots every 8 weeks [...] the left side of head over the jain and into the jaw. No vision changes associated with pain. Intermittent and dull and pounding. Right jain at the corner of her eye lid [...] with 2 new great granchildren [facility] in [facility] and in the New year. Counts [...] She was following with Dr. Bower in [facility]. Initially on 6 pills of hydrea. 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 She has not required other treatments. Also a history of iron deficiency and required iron infusions occasionally. She then moved [facility] in [address] 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 Rod Roman MD, CPE [facility] [place], [place] CC: Tito Hillman MD [address] [facility] [id number] documented in this encounter [facility] 02-19-2023 Note Cardiovascular Medic [facility] SUBJECTIVE Chief Complaint Patient presents with Coronary Artery Disease Hypertension Telehealth Phone Visit Josefa Castillo is a 82 y.o. female being evaluated for routine follow-up. HPI PMHx of HTN, CAD s/p stents x3 to LAD and RCA done in [place]. She has a hx of a loop recorder being placed in [place] d/t complaint of syncope. Loop recorder battery , never removed. Dr. Smart gave her the option to go to [place] to have it removed but she refused. [...] Affect: Mood normal (more content not included)... [facility] 02-19-2023 Note Telephone apt for 2 [...] All other systems reviewed and are negative. [facility] 12-17-2022 History of Presen t illness Narrative Patient Identification confirmed: yes. Injection given and documented on DEC per provider order. Katya Craig documented in this encounter [facility] 12-17-2022 Instructions Rod Roman MD - 12/17/2022 10:48 AM EST Labs every 8 weeks, CBC, CMP Labs to include B12 in 8 weeks. Continue current regimen of Hydrea 500 mg daily B12 Shot today and every 8 weeks. RTC in 16 weeks Defer left sided headache and right jain lesion to Dr. Hillman. documented in this encounter [facility] 12-17-2022 History of Presen t illness Narrative Images from the original note were not included. NAME: Josefa Castillo CLINIC NO.: [id number] DATE OF SERVICE: December 17, 2022 (Carlos) [...] 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 She has been on various dosing through [...] weeks Defer left sided headache and right jain lesion to Dr. Hillman. HPI: Updated Visit, [...] the left side of head over the jain and into the jaw. No vision changes associated with pain. Intermittent and dull and pounding. Right jain at the corner of her eye lid [...] She was following with Dr. Bower in [facility]. Initially on 6 pills of hydrea. 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 She has not required other treatments. Also a history of iron deficiency and required iron infusions occasionally. She then moved [facility] in [address] 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 Rod Roman MD, [place], [place] CC: Tito Hillman MD [facility] [address] [facility] [id number] documented in this encounter [facility] 11-12-2022 Miscellaneous Notes Please change b-12 date to 11/13/21. Kiera Rey Ma documented in this encounter [facility] 07-30-2022 Nurse Note Patient Identification confirmed: yes. Injection given and documented on DEC per provider order. Lory Avitia documented in this encounter [facility] 07-30-2022 Instructions Rod Roman MD - 07/30/2022 10:30 AM EDT Labs every 4 weeks, CBC, CMP Labs to include B12 in 8 weeks. Continue current regimen of Hydrea 500 mg daily B12 Shot today and every 4 weeks. Defer left sided headache and right jain lesion to Dr. Hillman. documented in this encounter [facility] 07-30-2022 History of Presen t illness Narrative Images from the original note were not included. NAME: Josefa Castillo CLINIC NO.: [id number] DATE OF SERVICE: July 30, 2022 Some [...] 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 She has been on various dosing through [...] weeks. Defer left sided headache and right jain lesion to Dr. Hillman. HPI: Updated Visit, July 30, 2022: Josefa is 82 years old and returns today with several issues outside of what we typically see her for. She has been complaining of pain on the left side of head over the jain and into the jaw. No vision changes associated with pain. Intermittent and dull and pounding. Right jain at the corner of her eye lid [...] She was following with Dr. Bower in [facility]. Initially on 6 pills of hydrea. 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 She has not required other treatments. Also a history of iron deficiency and required iron infusions occasionally. She then moved [facility] in [address] 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 Rod Roman MD, CPE [place], [place] CC: Tito Hillman MD [address] [id number] documented in this encounter [facility] 04-30-2022 History of Presen t illness Narrative Patient Identification confirmed: yes. Injection given and documented on DEC per provider order. Katya Craig documented in this encounter [facility] 04-02-2022 Nurse Note Patient Identification confirmed: yes. Injection given and documented on MAR per provider order. Kiera Rey Ma documented in this encounter [facility] 03-05-2022 History of Presen t illness Narrative Images from the original note were not included. NAME: Josefa Castillo CLINIC NO.: [id number] DATE OF SERVICE: March 05, 2022 Some [...] 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 She has been on various dosing through [...] She was following with Dr. Bower in [facility]. Initially on 6 pills of hydrea. 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 She has not required other treatments. Also a history of iron deficiency and required iron infusions occasionally. She then moved [facility] [place] [address] 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 Rod Roman MD, CPE [facility] [place], [place] CC: Tito Hillman MD [address] [facility] [id number] documented in this encounter [facility] 01-30-2022 Nurse Note Patient Identification confirmed: yes. Injection given and documented on DEC per provider order. Lolly Reagan documented in this encounter [facility] Evaluation note Diagnosis Essential thrombocythemia (HCC)- Primary Essential thrombocythemia Megaloblastic anemia due to vitamin B12 deficiency Other vitamin B12 deficiency anemia Osteopenia of multiple sites [facility] Diagnosis Megaloblastic anemia due to vitamin B12 deficiency- Primary Other vitamin B12 deficiency anemia [facility] Diagnosis Megaloblastic anemia due to vitamin B12 deficiency- Primary Other vitamin B12 deficiency anemia [facility] Diagnosis Megaloblastic anemia due to vitamin B12 deficiency- Primary Other vitamin B12 deficiency anemia [facility] Diagnosis Megaloblastic anemia due to vitamin B12 deficiency- Primary Other vitamin B12 deficiency anemia [facility] Diagnosis Essential thrombocythemia (HCC)- Primary Essential thrombocythemia Iron deficiency anemia, unspecified iron deficiency anemia type [facility] Diagnosis Essential thrombocythemia (HCC)- Primary Essential thrombocythemia Megaloblastic anemia due to vitamin B12 deficiency Other vitamin B12 deficiency anemia Iron deficiency anemia, unspecified iron deficiency anemia type [facility]* Diagnosis Essential thrombocythemia (HCC)- Primary Essential thrombocythemia Megaloblastic anemia due to vitamin B12 deficiency Other vitamin B12 deficiency anemia [facility] Diagnosis Megaloblastic anemia due to vitamin B12 deficiency- Primary Other vitamin B12 deficiency anemia Essential thrombocythemia (HCC) Essential thrombocythemia [facility] Diagnosis Left hip pain- Primary Pain in joint, pelvic region and thigh Pain from implanted hardware, initial encounter documented in this encounter [facility] HealthcareEvaluation note* Diagnosis Essential thrombocythemia (HCC)- Primary Essential thrombocythemia Megaloblastic anemia due to vitamin B12 deficiency Other vitamin B12 deficiency anemia documented in this encounter [facility] for referral (narrative)* Consultation (Routine) - Authorized Specialty Diagnoses / Procedures Referred By Altagracia yuen Referred To Contact Orthopaedic Surgery Diagnoses Pain from implanted hardware, initial encounter Jr. Kaylan Stewart DO [address] [address] Aristeo George MD [address] [place] [id number] Referral ID Status Reason Start Date Expiration Date Visits Requested Visits Authorized [id number] Authorized Specialty Services Required 12/01/2023 05/29/2024 1 1 INGER [facility] Healthcare Summary Purpose Family History No Family [...] mcg, INTRAMUSCULAR, ONCE, 1 dose, On [place] 03/05/22 at 1200 Given 03/05/2022 12:00 PM EDT [...] mcg, INTRAMUSCULAR, ONCE, 1 dose, On [place] 04/30/22 at 1130 Given 04/30/2022 11:28 AM EDT 1,000 mcg Deltoid, Left Inactive Administered Medications - up to 3 most recent administrations Medication Order MAR Action Action Date Dose Rate Site cyanocobalamin 1,000 mcg injection 1,000 mcg, INTRAMUSCULAR, ONCE, 1 dose, On [place] 07/30/22 at 1100 Given 07/30/2022 11:45 AM EDT 1,000 mcg Deltoid, Left Inactive Administered Medications - up to 3 most recent administrations Medication Order MAR Action Action Date Dose Rate Site cyanocobalamin 1,000 mcg injection 1,000 mcg, INTRAMUSCULAR, ONCE, 1 dose, On [place] 12/17/22 at 1100 Given 12/17/2022 11:10 AM EST [...] and content) DATE CREATED AUTHOR 11/11/[address] [facility] DATE CREATED AUTHOR AUTHOR'S ORGANIZ ATION 02/01/2023 [facility] DATE CREATED AUTHOR AUTHOR'S ORGANIZ ATION 02/24/2023 [facility] DATE CREATED AUTHOR AUTHOR'S ORGANIZ ATION 02/24/2024 [facility] DATE CREATED AUTHOR AUTHOR'S ORGANIZ ATION 04/05/2024 [facility] DATE CREATED AUTHOR AUTHOR'S ORGANIZ ATION 07/06/2024 [facility] DATE CREATED AUTHOR AUTHOR'S ORGANIZ ATION 07/08/2024 [facility] EPIC Source Comments (unrecognize d section and content) In the event this informatio n is protected by the Federal Confidentiality of Alcohol and Drug Abuse Patient Records regulations: The Federal rules restrict any use of the information to criminally investigate or prosecute any alcohol or drug abuse patient.[facility] the event this information is protected by the Federal Confidentiality of Alcohol and Drug Abuse Patient Records regulations: The Federal rules restrict any use of the information to criminally investigate or prosecute any alcohol or drug abuse patient.[facility]In the event this information is protected by the Federal Confidentiality of Alcohol and Drug Abuse Patient Records regulations: The Federal rules restrict any use of the information to criminally investigate or prosecute any alcohol or drug abuse patient.[facility]In the event this information is protected by the Federal Confidentiality of Alcohol and Drug Abuse Patient Records regulations: The Federal rules restrict any use of the information to criminally investigate or prosecute any alcohol or drug abuse patient.[facility]In the event this information is protected by the Federal Confidentiality of Alcohol and Drug Abuse Patient Records regulations: The Federal rules restrict any use of the information to criminally investigate or prosecute any alcohol or drug abuse patient.[facility]In the event this information is protected by the Federal Confidentiality of Alcohol and Drug Abuse Patient Records regulations: The Federal rules restrict any use of the information to criminally investigate or prosecute any alcohol or drug abuse patient.[facility] [place] NorthIn the event this information is protected by the Federal Confidentiality of Alcohol and Drug Abuse Patient Records regulations: The Federal rules restrict any use of the information to criminally investigate or prosecute any alcohol or drug abuse patient.[facility] [place] [facility]In the event this information is protected by the Federal Confidentiality of Alcohol and Drug Abuse Patient Records regulations: The Federal rules restrict any use of the information to criminally investigate or prosecute any alcohol or drug abuse patient.[facility] NorthIn the event this information is protected by the Federal Confidentiality of Alcohol and Drug Abuse Patient Records regulations: The Federal rules restrict any use of the information to criminally investigate or prosecute any alcohol or drug abuse patient.[facility]In the event this information is protected by the Federal Confidentiality of Alcohol and Drug Abuse Patient Records regulations: The Federal rules restrict any use of the information to criminally investigate or prosecute any alcohol or drug abuse patient.[facility]In the event this information is protected by the Federal Confidentiality of Alcohol and Drug Abuse Patient Records regulations: The Federal rules restrict any use of the information to criminally investigate or prosecute any alcohol or drug abuse patient.[facility]In the event this information is protected by the Federal Confidentiality of Alcohol and Drug Abuse Patient Records regulations: The Federal rules restrict any use of the information to criminally investigate or prosecute any alcohol or drug abuse patient.[facility]In the event this information is protected by the Federal Confidentiality of Alcohol and Drug Abuse Patient Records regulations: The Federal rules restrict any use of the information to criminally investigate or prosecute any alcohol or drug abuse patient.[facility] Reason for Visit (unrecogniz ed section and content) Reason Comments Thrombocytopenia Reason Comments thrombocythemia Reason Comments B-12 Injection Reason Comments Essential thrombocythemia Follow up Reason Comments Essential thrombocythemia Reason Comments essentail thrombocythemia Reason Comments Pain Reason Comments Lab Orders Care Teams (unrecognized sec tion and content) Nuclear Test Technician Relationship Specialty Start Date End Date Tito Hillman PCP - General Family Practice 06/01/16 Nuclear Test Technician Relationship Specialty Start Date End Date Tito Hillman PCP - General Family Practice 06/01/16 Nuclear Test Technician Relationship Specialty Start Date End Date Tito Hillman PCP - General Family Practice 06/01/16 Nuclear Test Technician Relationship Specialty Start Date End Date Tito Hillman PCP - General Family Practice 06/01/16 Nuclear Test Technician Relationship Specialty Start Date End Date Tito Hillman PCP - General Family Medicine 06/01/16 Nuclear Test Technician Relationship Specialty Start Date End Date Tito Hillman PCP - General Family Medicine 06/01/16 Nuclear Test Technician Relationship Specialty Start Date End Date Tito Hillman PCP - General Family Medicine 06/01/16 Nuclear Test Technician Relationship Specialty Start Date End Date Tito Hillman PCP - General Family Medicine 06/01/16 Nuclear Test Technician Relationship Specialty Start Date End Date Tito Hillman PCP - General Family Medicine 06/01/16 Nuclear Test Technician Relationship Specialty Start Date End Date Tito Hillman PCP - General Family Medicine 06/01/16 Nuclear Test Technician Relationship Specialty Start Date End Date Tito Hillman MD [address] [place] [address] PCP - General Family Medicine 11/23/23 Nuclear Test Technician Relationship Specialty Start Date End Date Tito [...] BE BASED ON THE PRIMARY CLINICAL RECORDS. [facility] provides no warranty or guarantee of the accuracy or completeness of information in this document.
--- NOTE | 2024-07-11 11:48 | ED.GENADUL1 ---
HPI HPI - General Adult General Chief complaint: Altered Mental Status Stated complaint: VOMITING, LETHARGIC Time Seen by Provider: 07/11/24 11:32 Source: patient and family Mode of arrival: Wheelchair History of Present Illness HPI narrative: This patient was brought to the emergency room by her daughter. This patient lives with her daughter in a local residence. Apparently, according to the daughter they had an argument at home about the distribution of medications. They just saw the primary care doctor this week and she was given some additional medication but there is no increase in the amount of analgesics. This patient has chronic pain occasionally wants to take more than the prescribed no and her daughter will always do that. So apparently they had an argument and the daughter wanted reinforcement that what she is doing is correct. She has not had any falls. She has not had any compromise respiratory status. To the daughter's knowledge she is not on any THC or CBD products. There is no alcohol involved. The patient agrees that she should only be taking the medications as prescribed, and the doses prescribed by her primary care doctor and so there is no dispute over that fact. The daughter sets out the pills in a pillbox and then the patient takes some at her discretion but sometimes has access to the additional pills and that just does not seem to be acceptable. Related Data Home Medications ?Medication ?Instructions ?Recorded ?Confirmed aspirin 81 mg capsule 81 mg PO DAILY 12/24/23 06/28/24 atorvastatin 20 mg tablet 20 mg PO .QHS 12/24/23 06/28/24 celecoxib 100 mg capsule 100 mg PO Q12H 12/24/23 06/29/24 hydrocodone 5 mg-acetaminophen 325 1 tab PO Q6H PRN pain 12/24/23 06/28/24 mg tablet isosorbide mononitrate 60 mg 60 mg PO QAM 12/24/23 06/28/24 tablet,extended release 24 hr lisinopril 10 mg tablet 10 mg PO QAM 12/24/23 06/28/24 metoprolol tartrate 25 mg tablet 25 mg PO Q12H 12/24/23 06/28/24 paroxetine HCl 40 mg tablet 40 mg PO QAM 12/24/23 06/28/24 quetiapine 25 mg tablet 25 mg PO .QHS 12/24/23 06/28/24 hydroxyurea 500 mg capsule 500 mg PO DAILY 06/28/24 06/28/24 ondansetron 4 mg disintegrating 4 mg PO Q6H PRN nausea and vomiting 06/28/24 06/28/24 tablet Allergies Allergy/AdvReac Type Severity Reaction Status Date / Time morphine AdvReac Severe Hallucinati Verified 07/11/24 11:11 ng Sulfa (Sulfonamide AdvReac Severe Hives Verified 07/11/24 11:11 Antibiotics) Opioid HPI Opioid Management Most Recent Opioid Data: Last Pain Scale 0 06/29/24 11:17 Last ORT Total Score 6 06/28/24 21:58 Last ORT Risk Category Moderate Risk 06/28/24 21:58 PFSH PFSH Medical History Essential thrombocytosis ?D47.3 - Essential (hemorrhagic) thrombocythemia (ICD-10) Skin cancer ?C44.90 - Unspecified malignant neoplasm of skin, unspecified (ICD-10) Mini stroke ?G45.9 - Transient cerebral ischemic attack, unspecified (ICD-10) Sleep apnea ?G47.30 - Sleep apnea, unspecified (ICD-10) Afib ?I48.91 - Unspecified atrial fibrillation (ICD-10) HTN (hypertension) ?I10 - Essential (primary) hypertension (ICD-10) Surgical History H/O heart artery stent ?Z95.5 - Presence of coronary angioplasty implant and graft (ICD-10) History of back surgery ?Z98.890 - Other specified postprocedural states (ICD-10) History of left hip replacement ?Z96.642 - Presence of left artificial hip joint (ICD-10) Social History Smoking status: Never smoker Highest level of school completed/degree received: 12th grade, no diploma Exam Narrative Exam Narrative: This patient is awake alert her speech is not slurred she is not lethargic. Craniofacial structures are normal there is no conjunctivitis. There is no erythema of the conjunctiva there is no lacrimation or salivation. Globes are nontender cranial nerves II through XII are normal. Airway is widely patent pulse oximetry is 100% on room air vital signs are stable with slight elevation of her blood pressure. Heart sounds are normal lungs are clear bilaterally with no respiratory distress. Extremities appear normal with no bruises or contusions. Constitutional Vital Signs, click to edit/add: Last Vital Signs Temp 97.7 F 07/11/24 11:08 Pulse 56 L 07/11/24 11:08 Resp 18 07/11/24 11:08 BP 174/87 H 07/11/24 11:08 Pulse Ox 100 07/11/24 11:08 O2 Del Method Room Air 07/11/24 11:08 Course Vital Signs Vital signs: Vital Signs Temperature 97.7 F 07/11/24 11:08 Pulse Rate 56 L 07/11/24 11:08 Respiratory Rate 18 07/11/24 11:08 Blood Pressure 174/87 H 07/11/24 11:08 Pulse Oximetry 100 07/11/24 11:08 Oxygen Delivery Method Room Air 07/11/24 11:08 Temperature 97.7 F 07/11/24 11:08 Pulse Rate 56 L 07/11/24 11:08 Respiratory Rate 18 07/11/24 11:08 Blood Pressure 174/87 H 07/11/24 11:08 Pulse Oximetry 100 07/11/24 11:08 Oxygen Delivery Method Room Air 07/11/24 11:08 Medical Decision Making MDM Narrative Medical decision making narrative: I have offered to do medical screening laboratory testing but do not see the need to do so nor does the daughter or the patient. The patient agrees to only take the medications as prescribed and distributed in the pillbox by her daughter. Discharge Plan Discharge Chief Complaint: Altered Mental Status Clinical Impression: Medication care plan discussed with patient Patient Disposition: Home, Self-Care Time of Disposition Decision: 11:51 Prescriptions / Home Meds: No Action hydroxyurea 500 mg capsule 500 mg PO DAILY ondansetron 4 mg tablet,disintegrating 4 mg PO Q6H PRN (Reason: nausea and vomiting) quetiapine 25 mg tablet 25 mg PO .QHS atorvastatin 20 mg tablet 20 mg PO .QHS hydrocodone-acetaminophen 5-325 mg tablet 1 tab PO Q6H PRN (Reason: pain) isosorbide mononitrate 60 mg tablet extended release 24 hr 60 mg PO QAM lisinopril 10 mg tablet 10 mg PO QAM Hold Instructions: Resume on 07/02/24. paroxetine HCl 40 mg tablet 40 mg PO QAM celecoxib 100 mg capsule 100 mg PO Q12H Hold Instructions: Resume on 07/02/24. metoprolol tartrate 25 mg tablet 25 mg PO Q12H aspirin 81 mg capsule 81 mg PO DAILY Print Language: [place] Additional Instructions: Continue products and medications and prescribed dose only Referrals: Tito Ledezma MD [Primary Care Provider] - 1 week
[2024-07-11 12:14] VITALS: BP 144/68
== END 2024-07-11 12:17 | disposition home or self-care (01) ==
PROVIDERS: Emergency Provider Emergency Medicine Emergency Medical Services; PCP Family Medicine
DX: Z76.89 Persons encountering health services in other specified circumstances (principal); G89.29 Other chronic pain; Z79.899 Other long term (current) drug therapy
CPT/HCPCS: 93005; 99281

== ENCOUNTER 2024-07-14 13:02 | Outpatient (OUT) | payer MEDICARE, OTHER, SELFPAY ==
[2024-07-14 14:10] LABS: Basophils Absolute Auto 0.1 10^3/uL (0.0-0.1); Basophils Percent Auto 1.2 % (0.2-2.0); Eosinophils Percent Auto 0.7 % (0.9-7.0); Hematocrit 36.5 % (36.0-48.0); Hemoglobin 12.3 g/dL (12.0-16.0); Immature Granulocytes Abs Auto 0.02 10^3/uL (0.00-0.03); Immature Granulocytes Pct Auto 0.3 % (0.0-0.5); Lymphocytes Absolute Auto 1.4 10^3/uL (1.2-3.8); Lymphocytes Percent Auto 24.3 % (20.5-60.0); Mean Corpuscular HGB Conc 33.7 g/dL (29.9-35.2); Mean Corpuscular Volume 124.6 fL (81.0-99.0); Mean Platelet Volume 9.9 fL (9.5-13.5); Monocytes Absolute Auto 0.5 10^3/uL (0.3-0.8); Neutrophils Absolute Auto 3.9 10^3/uL (1.4-6.5); Neutrophils Percent Auto 65.5 % (43.0-75.0); Platelet Count 465 10^3/uL (150-450); White Blood Count 5.9 10^3/uL (4.0-11.0)
[2024-07-14 14:12] LABS: Percent Iron Saturation 40.8 %
[2024-07-14 14:20] LABS: Alanine Aminotransferase 14 U/L (14-59); Albumin Globulin Ratio 1.3; Albumin Level 3.9 g/dL (3.4-5.0); Alkaline Phosphatase 90 U/L (46-116); Anion Gap 15.7; Aspartate Amino Transferase 17 U/L (15-37); BUN Creatinine Ratio 12.4; Bilirubin Total 0.5 mg/dL (0.2-1.0); Calcium 8.9 mg/dL (8.5-10.1); Carbon Dioxide 23.6 mmol/L (21.0-32.0); Chloride 101 mmol/L (98-107); Estimated GFR (African America 44 (>=60); Estimated GFR (Non-African Ame 37 (>=60); Globulin 3.1 g/dL; Glucose 130 mg/dL (74-106); Lactate Dehydrogenase 167 U/L (81-234); Potassium 4.3 mmol/L (3.5-5.1); Sodium 136 mmol/L (136-145)
[2024-07-14 15:27] LABS: Red Blood Count 2.93 10^6/uL (4.20-5.40)
[2024-07-15 04:10] LABS: Vitamin B12 1289 pg/mL (232-1245)
== END 2024-07-14 13:03 | disposition home or self-care (01) ==
LOC: LAB 13:03
PROVIDERS: PCP Family Medicine; Visit Provider Internal Medicine Hematology & Oncology
DX: D47.3 Essential (hemorrhagic) thrombocythemia (principal); D64.9 Anemia, unspecified; D72.829 Elevated white blood cell count, unspecified; D51.9 Vitamin B12 deficiency anemia, unspecified; K71.8 Toxic liver disease with other disorders of liver
CPT/HCPCS: 36415; 80053; 82607; 82728; 82746; 83540; 83550; 83615; 85025

== ENCOUNTER 2024-07-18 07:23 | Outpatient (RCR) | payer MEDICARE, OTHER, SELFPAY ==
[2024-07-04] MEDS: CYANOCOBALAMIN 1,000 MCG/ML VIAL 1000 MCG IM (13:09)
[2024-07-04 13:26] VITALS: BP 155/76; PULSE 71; TEMP 36.5; O2SAT 96
[2024-07-18 13:00] VITALS: BP 184/99; PULSE 58; TEMP 36.4; O2SAT 97
[2024-07-18] MEDS: CYANOCOBALAMIN 1,000 MCG/ML VIAL 1000 MCG IM (13:05)
--- NOTE | 2024-07-18 13:36 | PC.NURSE ---
1300: Pt. comes from Dr. Stark's office visit. VSS. Medicated with Vitamin B-12 IM as ordered, see MAR. Trace bleeding to site, bandaid applied. Pt tolerated without c/o. 1308: D/c'd amb. to home with daughter.
== END 2024-07-31 23:59 | disposition home or self-care (01) ==
LOC: HEMC 07:23
PROVIDERS: PCP Family Medicine; Visit Provider Internal Medicine Hematology & Oncology
DX: D47.3 Essential (hemorrhagic) thrombocythemia (principal); D64.9 Anemia, unspecified; D72.829 Elevated white blood cell count, unspecified; D51.9 Vitamin B12 deficiency anemia, unspecified; F17.210 Nicotine dependence, cigarettes, uncomplicated
CPT/HCPCS: 96372; G0463; J3420

== ENCOUNTER 2024-08-29 07:43 | Outpatient (RCR) | payer MEDICARE, OTHER, SELFPAY ==
[2024-08-15 11:00] VITALS: BP 189/78; PULSE 58; TEMP 36.2; O2SAT 99
[2024-08-15] MEDS: CYANOCOBALAMIN 1,000 MCG/ML VIAL 1000 MCG IM (11:36)
--- NOTE | 2024-08-15 14:20 | PC.NURSE ---
1100: Pt. to [facility] amb. for B12 injection. Seated in recliner. VSS. Offered warm blanket or beverage, pt. declines 1136: Medicated with Vitamin B12 to left deltoid as ordered IM. No bleeding to site. Pt. tolerates without c/o. 1138: Pt. without c/o. D/c'd amb. to home.
[2024-08-29 13:01] VITALS: BP 174/70; PULSE 63; TEMP 36.4; O2SAT 98
[2024-08-29 13:34] LABS: Basophils Absolute Auto 0.1 10^3/uL (0.0-0.1); Basophils Percent Auto 1.3 % (0.2-2.0); Eosinophils Absolute Auto 0.1 10^3/uL (0.0-0.7); Hematocrit 39.6 % (36.0-48.0); Hemoglobin 13.6 g/dL (12.0-16.0); Immature Granulocytes Abs Auto 0.02 10^3/uL (0.00-0.03); Immature Granulocytes Pct Auto 0.4 % (0.0-0.5); Lymphocytes Absolute Auto 1.3 10^3/uL (1.2-3.8); Lymphocytes Percent Auto 28.2 % (20.5-60.0); Mean Corpuscular HGB Conc 34.3 g/dL (29.9-35.2); Mean Corpuscular Hemoglobin 43.9 pg (26.7-34.0); Mean Platelet Volume 10.2 fL (9.5-13.5); Monocytes Absolute Auto 0.4 10^3/uL (0.3-0.8); Monocytes Percent Auto 8.8 % (1.7-12.0); Neutrophils Absolute Auto 2.7 10^3/uL (1.4-6.5); Neutrophils Percent Auto 59.3 % (43.0-75.0); Platelet Count 451 10^3/uL (150-450); Red Cell Distribution Width 14.3 % (11.0-15.0); Reticulocyte Pct Auto 1.62 % (0.60-3.10); White Blood Count 4.6 10^3/uL (4.0-11.0)
[2024-08-29 13:51] LABS: Mean Corpuscular Volume 127.7 fL (81.0-99.0)
[2024-08-29 14:02] LABS: Alanine Aminotransferase 14 U/L (14-59); Albumin Globulin Ratio 1.1; Albumin Level 3.7 g/dL (3.4-5.0); Alkaline Phosphatase 77 U/L (46-116); Anion Gap 14.7; Aspartate Amino Transferase 17 U/L (15-37); BUN Creatinine Ratio 14.3; Bilirubin Total 0.4 mg/dL (0.2-1.0); Calcium 8.3 mg/dL (8.5-10.1); Carbon Dioxide 24.7 mmol/L (21.0-32.0); Chloride 105 mmol/L (98-107); Estimated GFR (African America >60 (>=60 mL/min/1.73m^2); Estimated GFR (Non-African Ame 50 (>=60 mL/min/1.73m^2); Globulin 3.3 g/dL; Glucose 75 mg/dL (74-106); Lactate Dehydrogenase 200 U/L (81-234); Potassium 4.4 mmol/L (3.5-5.1); Sodium 140 mmol/L (136-145)
[2024-08-29] MEDS: CYANOCOBALAMIN 1,000 MCG/ML VIAL 1000 MCG IM (14:06)
[2024-08-29 14:18] LABS: Percent Iron Saturation 35.7 %
[2024-08-30 04:11] LABS: Vitamin B12 705 pg/mL (232-1245)
== END 2024-08-31 23:59 | disposition home or self-care (01) ==
LOC: HEMC 07:43
PROVIDERS: PCP Family Medicine; Visit Provider Internal Medicine Hematology & Oncology
DX: D47.3 Essential (hemorrhagic) thrombocythemia (principal); D64.9 Anemia, unspecified; D72.829 Elevated white blood cell count, unspecified; D51.9 Vitamin B12 deficiency anemia, unspecified
CPT/HCPCS: 36415; 80053; 82607; 82728; 82746; 83540; 83550; 83615; 85025; 85045; 96372; G0463; J3420

== ENCOUNTER 2024-09-26 07:35 | Outpatient (RCR) | payer MEDICARE, OTHER, SELFPAY ==
[2024-09-12 09:31] VITALS: BP 158/75; PULSE 56; TEMP 36; O2SAT 100
[2024-09-12] MEDS: CYANOCOBALAMIN 1,000 MCG/ML VIAL 1000 MCG IM (09:44)
[2024-09-26 10:33] VITALS: BP 177/82; PULSE 72; TEMP 36.6; O2SAT 97
[2024-09-26] MEDS: CYANOCOBALAMIN 1,000 MCG/ML VIAL 1000 MCG IM (10:49)
--- NOTE | 2024-09-26 11:09 | PC.NURSE ---
1033: Pt. to [facility] amb. for Vit B12 injection. Seated in recliner. VSS. Denies needs or c/o. 1049: Medicated with Vit.B12 IM to left deltoid, see documentation. No bleeding to site. Pt. tolerated without c/o. 1055: Pt. escorted to car per this RN and home with daughter.
== END 2024-09-27 08:27 | disposition home or self-care (01) ==
LOC: HEMC 07:35
PROVIDERS: PCP Family Medicine; Visit Provider Internal Medicine Hematology & Oncology
DX: D47.3 Essential (hemorrhagic) thrombocythemia (principal); D64.9 Anemia, unspecified; D72.829 Elevated white blood cell count, unspecified; D51.9 Vitamin B12 deficiency anemia, unspecified
CPT/HCPCS: 96372; J3420

== ENCOUNTER 2024-10-03 14:18 | Outpatient (OUT) | payer MEDICARE, OTHER, SELFPAY | END 2024-10-03 14:19 | disposition home or self-care (01) | LOC: WC 14:18 | PROVIDERS: PCP Family Medicine; Visit Provider Podiatrist Foot & Ankle Surgery | DX: L97.512 Non-pressure chronic ulcer of other part of right foot with fat layer exposed (principal); D51.9 Vitamin B12 deficiency anemia, unspecified; D47.3 Essential (hemorrhagic) thrombocythemia; D64.9 Anemia, unspecified; D72.829 Elevated white blood cell count, unspecified; F17.290 Nicotine dependence, other tobacco product, uncomplicated; Z86.73 Personal history of transient ischemic attack (TIA), and cerebral infarction without residual deficits | CPT/HCPCS: 36415; 80053; 82607; 82728; 82746; 83540; 83550; 85025; 85652; 86140; 96372; G0463; J3420 ==

== ENCOUNTER 2024-10-26 12:53 | Outpatient (OUT) | payer MEDICARE, OTHER, SELFPAY ==
--- NOTE | 2024-10-26 12:55 | VEIN_ITS ---
The [address] [address] Patient Name: DEEPIKA WILSON MRN: [id number] date: 1940 Sex: F Assigned Patient Location: Current Patient Location: Accession/Order Number: [id number] Exam Date: 10/26/2024 12:55 Report Date: 10/27/2024 14:44 At the request of: MARCI CONTRERAS Procedure: VC SEGMENTAL PRESSURES EXAM: VC SEGMENTAL PRESSURES HISTORY: R09.89. Evaluate for peripheral vascular disease. COMPARISON: None. TECHNIQUE: Resting ABIs and segmental pressure gradients. FINDINGS: Right resting CAROLA 1.1. Left resting CAROLA 1.13. No pressure gradients were obtained. Waveforms are multiphasic. VEIN/VC SEGMENTAL PRESSURES IMPRESSION: Normal resting ABIs. No pressure gradients noted. Electronically authenticated by: Arturo TITUS Date: 10/27/2024 14:44
--- OUTSIDE RECORDS SUMMARY | 2024-10-26 13:02 | XMS_ITS | CCD ---
Author Organization [facility] Care Team Providers Care Heel Shaper Name Role Phone DESTINEE SMART Admitting Unavailable DESTINEE SMART Attending Unavailable UNKNOWN, PHYSICIAN Referring Unavailable UNKNOWN, PHYSICIAN Primary Care Unavailable Kady, Tito Lopez Primary Care Provider [phone] Naderer, Tito Lopez Primary Care Provider Naderer, Tito Lopez Primary Care Provider NADTOSHIA, DR TITO Lopez Primary Care Unavailable KENNETH, DR ARETHA Andersen Admitting Unavailabl e REINADOLFO, DR ARETHA Andersen Attending Unavailabl e KENNETH, [...] DR TITO Lopez Primary Care Unavailable FAWWAHeydi, H Consulting Unavailable NADERER, DR TITO Lopez Admitting Unavailable NADERER, DR TITO Lopez Attending Unavailable NADERER, DR TITO Lopez Primary Care Unavailable ZIEBER, DR LUZ Ornelas Consulting Unavailable NADERER, DR TITO Lopez Consulting Unavailable NADERER, DR TITO Lopez Admitting Unavailable NADERER, DR TITO Lopez Attending Unavailable NADERER, DR TITO Lopez Primary Care Unavailable NADERER, DR TIOT Lopez Consulting Unavailable NADERER, DR TITO Lopez Primary Care Unavailable JULIANA PRAKASH Admitting Unavailable HALEY .JULIANA Attending Unavailable JOCELYN, DR LUZ Ornelas Consulting Unavailable HALEY ., JULIANA Consulting Unavailable LINA DOE Attending Unavailable Tito Hillman MD Primary Care Provider ARISTEO GEORGE Referring Unavailable VEGAS, GAEL Primary Care Unavailable DB, ARISTEO Kapadia Referring Unavailable VEGAS, GAEL Primary Care Unavailable MICHAEL CONNOR Attending Unavailable JAMAL MAYERS Admitting Unavailable VEGAS, GAEL Primary Care Unavailable ARISTEO GEORGE Consulting Unavailable ASLAM, CARLOS Consulting Unavailable Naderer, Tito Lopez Primary Care Provider [phone] KADY, TITO Lopez Primary Care Unavailable ABHYANKAR, ROD Referring Unavailable ABHYANKAR, ROD Attending Unavailable NADERER, TITO Lopez Primary Care Unavailable ABHYANKAR, ROD Referring Unavailable NADERER, TITO A Primary Care Unavailable ABHYANKAR, ROD Referring Unavailable ABHYANKAR, ROD Referring Unavailable NADERER, TITO Lpoez Primary Care Unavailable ABHYANKAR, ROD Referring Unavailable NADERER, TITO A Primary Care Unavailable ABHYANKAR, ROD Attending Unavailable NADEREJohnson, TITO A Primary Care Unavailable ABHYANKAR, ROD Referring Unavailable NADERER, TITO Referring Unavailable NADERER, TITO Primary Care Unavailable NADERER, TITO Referring Unavailable NADERER, TITO Primary Care Unavailable NADERER, TITO Primary Care Unavailable NADERER, TITO Referring Unavailable NADERER, TITO Primary Care Unavailable JR. DOREEN, KAYLAN Kapadia Attending Unavaila lesley STEWART JR., KAYLAN Kapadia Referring Unavaila ble NADEREJohnson, TITO Attending Unavailable NADERER, TITO Attending Unavailable NADERER, TITO Attending Unavailable NADERER, TITO Attending Unavailable VEGAS, GAEL Morris Attending Unavailable VEGAS, GAEL J Referring Unavailable Allergies Allergy Classification Reported Allergen(s) Allergy Type Date of Onset Reaction(s) Facility Opioid Agonists (1 source) Morphine; Translations: [MORPHINE] Drug Allergy 4 [facility] Repository sulfaSALAzine (1 source) sulfaSALAzine; Translations: [SULFASALAZINE] Drug Allergy 4 [facility] Rep[facility] Sulfonamides (antibiotic) (1 source) Sulfonamides (Antibiotic); Translations: [SULFA (SULFONAMIDE ANTIBIOTICS)] Drug Allergy 5 [facility] Repository Sulfur (1 source) Sulfur; Translations: [SULFUR] Drug Allergy 4 [facility] (20 sources) Morphine; Translations: [MORPHINE] Drug Allergy 4 Unknown, Rash, GI intolerance [facility] (15 sources) sulfaSALAzine; Translations: [SULFASALAZINE] Drug Allergy 4 Unknown [facility] (20 sources) Sulfonamides (Antibiotic); Translations: [SULFA (SULFONAMIDE ANTIBIOTICS)] Drug Allergy 4 Unknown, Swelling, Rash [facility] (15 sources) Sulfur; Translations: [SULFUR] Drug Allergy 4 Unknown [facility] (1 source) Morphine Drug Allergy 6 [facility] Rep[facility] (1 source) Sulfonamides (Antibiotic) Drug allergy (disorder) 6 [facility] Rep[facility] (20 sources) Ciprofloxacin Drug Allergy 2 Hallucinations [facility] Medications Current Medications Medication Drug Class(es) Dates Sig (Normalized) Sig (Original) acetaminophen 325 mg / butalbital 50 mg / caffeine 40 mg oral tablet (20 sources) Barbiturate, Central Nervous System Stimulant, Methylxanthine Start: 10-19-2024 take 1 tablet by mouth four times daily as needed butalbital-acetam inophen-caffeine 50-325-40 MG tablet Indications: Migraine without aura, not intractable, without status migrainosus (CMS/HCC) TAKE 1 TABLET BY MOUTH FOUR TIMES DAILY NEEDED 30 tablet 1 10/19/2024 Active Start: 09-13-2024 take 1 tablet by mouth four times daily as needed [id number]-kqfwpzpgtsuvb-tokvendr 50-325 -40 MG tablet Indications: Migraine without aura, not intractable, without status migrainosus (CMS/HCC) TAKE 1 TABLET BY MOUTH FOUR TIMES DAILY NEEDED 30 tablet 1 09/13/2024 Active Start: 07-14-2024 take 1 tablet by mouth four times daily as needed for headache [id number]-ftxopsfqylvlf-mkdaxnjc 50-325 -40 MG tablet Indications: Migraine without aura, not intractable, without status migrainosus (CMS/HCC) TAKE 1 TABLET BY MOUTH FOUR TIMES DAILY NEEDED FOR HEADACHE 30 tablet 07/14/2024 Active Start: 07-06-2024 End: 09-13-2024 take 1 tablet by mouth four times daily as needed pqvwelvkop-mjxkfachetxcx-wemzqxth 50-325 -40 MG tablet Indications: Migraine without aura, not intractable, without status migrainosus (CMS/HCC) TAKE 1 TABLET BY MOUTH FOUR TIMES DAILY NEEDED 30 tablet 1 09/13/2024 Active acetaminophen 325 mg / HYDROcodone bitartrate 5 mg oral tablet (20 sources) Opioid Agonist Start: 05-31-2024 End: 11-01-2024 take 1 tablet by mouth four times daily as needed for pain HYDROcodone-acetaminophen ([place]) 5-325 MG tablet Indications: DDD (degenerative disc disease), lumbar Take 1 tablet by mouth 4 (four) times a day as needed for severe pain 120 tablet 10/02/2024 11/01/2024 Active Start: 11-29-2023 End: 12-29-2023 take 1 tablet by mouth four times daily as needed for pain HYDROcodone-acetaminophen ([place]) 5-325 MG tablet Indications: DDD (degenerative disc [...] ely th every 6 hours as needed. [id number] 200 actuat albuterol 0.09 mg/actuat metered dose inhaler (14 sources) beta2-Adrenergic Agonist Start: 017 take 2 puff(s) by inhalation every four hours as needed VENTOLIN HFA 90 mcg/actuation inhaler Inhale 2 Puffs as instructed every 4 hours as needed. 0 02/13/2017 Active Comment on above: Inhale 2 Puffs as in structed every 4 hours as needed. alendronic acid 70 mg oral tablet (20 sources) Bisphosphonate Start: 024 take 1 tablet by mouth in the morning alendronate (Fosamax) 70 MG tablet Indications: Osteoporosis, post-menopausal (CMS/HCC) Take 1 tablet (70 mg) by mouth every 7 (seven) days Take in the morning with a full glass of water, on an empty stomach, and do not take anything else by mouth or lie down for the next 30 min. 12 tablet 3 01/24/2024 Active aspirin 81 mg delayed release oral tablet (20 sources) Platelet Aggregation Inhibitor, Nonsteroidal Anti-inflammatory Drug take 1 tablet by mouth in the morning aspirin 81 MG EC tablet Take 81 mg by mouth in the morning. Active Comment on above: Take 81 mg by mouth once daily. atorvastatin 20 mg oral tablet (20 sources) HMG-CoA Reductase Inhibitor Start: 024 take 1 tablet by mouth once daily at bedtime atorvastatin (Lipitor) 20 MG tablet Indications: Thrombocythemia, essential (CMS/HCC) TAKE 1 TABLET BY MOUTH EVERY DAY AT BEDTIME 90 tablet 5 04/24/2024 Active Start: 03-25-2017 take 1 tablet by ely once daily at bedtime atorvastatin (LIPITOR) 20 mg tablet Take 20 mg by mouth daily at bedtime. 3 03/25/2017 Active Comment on above: Take 20 mg by mouth daily at bedtime. busPIRone hydrochloride 7.5 mg oral tablet (14 sources) Start: 11-03-19 take 1 tablet by mouth twice daily busPIRone (BUSPAR) 7.5 mg tablet Take 7.5 mg by mouth twice daily. 0 11/03/2020 Active Comment on above: Take 7.5 mg by mouth twice daily. celecoxib 100 mg oral capsule (20 sources) Nonsteroidal Anti-inflammatory Drug Start: 10-12-20 24 take 1 capsule by mouth twice daily at bedtime celecoxib (CeleBREX) 100 MG capsule Indications: Lumbar spondylosis TAKE 1 CAPSULE BY MOUTH TWICE DAILY (IN THE MORNING and BEFORE bedtime) 30 capsule 5 10/12/2024 Active Start: 07-24-2024 take 1 capsule by mo ut twice daily at bedtime celecoxib (CeleBREX) 100 MG capsule Indications: Lumbar spondylosis TAKE 1 CAPSULE BY MOUTH TWICE DAILY (IN THE MORNING and BEFORE bedtime) 30 capsule 5 07/24/2024 Active Start: 04-24-2024 take 1 capsule by mo uth twice daily at bedtime celecoxib (CeleBREX) 100 MG capsule Indications: Lumbar spondylosis TAKE 1 CAPSULE BY MOUTH TWICE DAILY (IN THE MORNING and BEFORE bedtime) 30 capsule 5 04/24/2024 Active Start: 10-22-2023 take 1 capsule by mo uth in the morning celecoxib (CeleBREX) 100 MG capsule Indications: Lumbar spondylosis Take 1 capsule (100 mg) by mouth in the morning and 1 capsule (100 mg) before bedtime. 30 capsule 5 10/22/2023 Active famotidine 40 mg oral tablet (20 sources) Histamine-2 Receptor Antagonist Start: 07-24-2024 take 1 tablet by mouth once daily famotidine (Pepcid) 40 MG tablet Indications: Gastroesophageal reflux disease without esophagitis TAKE 1 TABLET BY MOUTH DAILY 30 tablet 5 07/24/2024 Active Start: 01-24-2024 take 1 tablet by ely th once daily famotidine (Pepcid) 40 MG tablet Indications: Gastroesophageal reflux disease without esophagitis Take 1 tablet (40 mg) by mouth Daily 30 tablet 01/24/2024 Active gabapentin 100 mg oral capsule (7 sources) Anti-epileptic Agent take 2 capsules by mouth three times daily gabapentin (NEURONTIN) 100 mg capsule gabapentin 100 mg capsule TAKE 2 CAPSULES BY MOUTH THREE TIMES DAILY 0 Active Comment on above: gabapentin 100 mg ca psule TAKE 2 CAPSULES BY MOUTH THREE TIMES DAILY hydroxyurea 500 mg oral capsule (20 sources) Antimetabolite Start: 024 take 1 capsule by mouth once daily hydroxyurea (Hydrea) 500 MG capsule Indications: Essential (hemorrhagic) thrombocythemia (CMS/HCC) TAKE 1 CAPSULE BY MOUTH DAILY 90 capsule 07/24/2024 Active take 1 capsule by mouth once ivory ly hydroxyurea (Hydrea) 500 MG capsule Take 1 capsule by mouth Daily. Active Comment on above: Take 500 mg by mouth once daily. 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 Active take 1 tablet by ely th once daily, then take 1 tablet by mouth every twenty-four hours isosorbide mononitrate ER (IMDUR) 60 mg 24 hr tablet Take 60 mg by mouth once daily. 0 Active Comment on above: Take 60 mg by mouth once daily. lisinopril 5 mg oral tablet (20 sources) Angiotensin Converting Enzyme Inhibitor take 1 tablet by mouth in the morning lisinopril 5 MG tablet Take 1 tablet by mouth in the morning. Active Comment on above: Take 5 mg by mouth o nce daily. meloxicam 15 mg oral tablet (14 sources) Nonsteroidal Anti-inflammatory Drug take 1 tablet by mouth once daily meloxicam (MOBIC) 15 mg tablet Take 15 mg by mouth once daily. 0 Active Comment on above: Take 15 mg by mouth once daily. metoprolol tartrate 25 mg oral tablet (20 sources) beta-Adrenergic [place] Start: 4 take 1 tablet by mouth twice daily metoprolol tartrate (Lopressor) 25 MG tablet Indications: Essential (primary) hypertension (CMS/HCC) TAKE 1 TABLET BY MOUTH TWICE DAILY 180 tablet 3 04/24/2024 Active Start: 03-25-2017 metoprolol tar trate, short acting, (LOPRESSOR) 25 mg tablet Take 12.5 mg by mouth twice daily. 3 03/25/2017 Active take 1 tablet by ely th in the morning metoprolol tartrate (Lopressor) 25 MG tablet Take 1 tablet by mouth in the morning and 1 tablet before bedtime. 0 Active Comment on above: Take 12.5 mg by mout h twice daily. nystatin 100 unt/mg topical powder (14 sources) Polyene Antifungal Start: 08-31-20 18 nystatin (NYSTOP) powder Apply 1 application to affected area four times daily. 60 g 5 08/31/2018 Active Comment on above: Apply 1 application to affected area four times daily. omeprazole 40 mg delayed release oral capsule (14 sources) Proton Pump Inhibitor Start: 04-29-20 17 take 1 capsule by mouth once daily Omeprazole 40 mg capsule Take 40 mg by mouth once daily. 5 04/29/2017 Active Comment on above: Take 40 mg by mouth once daily. ondansetron 4 mg disintegrating oral tablet (20 sources) Serotonin-3 Receptor Antagonist Start: 05-01-20 24 take 1 tablet by mouth every six hours as needed ondansetron ODT (Zofran-ODT) 4 MG disintegrating tablet Indications: Nausea DISSOLVE 1 (ONE) TABLET BY MOUTH EVERY 6 HOURS NEEDED (to last 9 days) 30 tablet 5 05/01/2024 Active Start: 10-21-2022 take 1 tablet by ely th every six hours as needed ondansetron orally [...] ELY TH EVERY 6 (SIX) HOURS NEEDED 24 hr oxybutynin chloride 10 mg extended release oral tablet (19 sources) Cholinergic Muscarinic Antagonist Start: 07-06-20 take 1 tablet by mouth once daily oxybutynin XL (Ditropan XL) 10 MG 24 hr tablet Indications: Overflow incontinence of urine Take 1 tablet (10 mg) by mouth Daily Do not crush, chew, or split. 30 tablet 5 07/06/2024 Active pantoprazole 40 mg delayed release oral tablet (16 sources) Proton Pump Inhibitor take 1 tablet by mouth once daily pantoprazole DR (PROTONIX) 40 mg tablet pantoprazole 40 mg tablet,delayed release Take 1 tablet every day by oral route. 0 Active Comment on above: pantoprazole 40 mg t ablet,delayed release Take 1 tablet every day by oral route. PARoxetine hydrochloride 40 mg oral tablet (20 sources) Serotonin Reuptake Inhibitor Start: 10-12-20 24 take 1 tablet by mouth once daily PARoxetine (Paxil) 40 MG tablet Indications: Depression, unspecified (CMS/HCC) TAKE 1 TABLET BY MOUTH DAILY 90 tablet 3 10/12/2024 Active Start: 10-15-2023 take 1 tablet by ely th once daily PARoxetine (Paxil) 40 MG tablet Indications: Depression, unspecified (CMS/HCC) TAKE 1 TABLET BY MOUTH DAILY 90 tablet 3 10/15/2023 Active Comment on above: Take 40 mg by mouth once daily. QUEtiapine 25 mg oral tablet (20 sources) Atypical Antipsychotic Start: 10-12-20 take 1 tablet by mouth at bedtime QUEtiapine (SEROquel) 25 MG tablet Indications: Unspecified psychosis not due to a substance or known physiological condition (CMS/HCC) TAKE 1 TABLET BY MOUTH AT BEDTIME 30 tablet 5 10/12/2024 Active Start: 04-24-2024 take 1 tablet by ely th at bedtime QUEtiapine (SEROquel) 25 MG tablet Indications: Unspecified psychosis not due to a substance or known physiological condition (CMS/HCC) TAKE 1 TABLET BY MOUTH AT BEDTIME 30 tablet 5 04/24/2024 Active Start: 11-22-2022 take 1 tablet by ely th once daily QUEtiapine (SEROQUEL) 25 mg tablet TAKE 1 TABLET BY MOUTH NIGHTLY 0 11/22/2022 Active Comment on above: TAKE 1 TABLET BY ELY TH NIGHTLY SUMAtriptan 50 mg oral tablet (19 sources) Serotonin-1b and Serotonin-1d Receptor Agonist Start: 10-02-2024 take 1 tablet by mouth once as needed SUMAtriptan (Imitrex) 50 MG tablet Indications: Migraine without aura, not intractable, without status migrainosus (CMS/HCC) TAKE 1 TABLET BY MOUTH 1 time NEEDED FOR MIGRAINE 9 tablet 3 10/02/2024 Active Start: 08-15-2024 take 1 tablet by mouth once MEDEL MAtriptan (Imitrex) 50 MG tablet Indications: Migraine without aura, not intractable, without status migrainosus (CMS/HCC) TAKE 1 TABLET BY MOUTH 1 time if needed for FOR MIGRAINE 9 tablet 3 08/15/2024 Active Start: 08-09-2024 take 1 tablet by mouth once MEDEL MAtriptan (Imitrex) 50 MG tablet Indications: Migraine without aura, not intractable, without status migrainosus (CMS/HCC) Take 1 tablet (50 mg) by mouth 1 (one) time if needed for migraine 9 tablet 3 08/09/2024 Active Start: 07-06-2024 take 1 tablet by mouth once MEDEL MAtriptan (Imitrex) 50 MG tablet Indications: Migraine without aura, not intractable, without status migrainosus (CMS/HCC) Take 1 tablet (50 mg) by mouth 1 (one) time if needed for migraine 9 tablet 3 07/06/2024 Active tetracycline, nystatin, hydrocortisone, diphenhydrAMINE MAGIC MOUTHWASH SUSPENSION (14 sources) Start: 08-19-2020 tetracycline, nystatin, hydrocortisone, diphenhydrAMINE MAGIC MOUTHWASH SUSPENSION [...] Diphenhydramine Elixir 12.5mg/5ml. Label bottle Shake Well topiramate 50 mg oral tablet (20 sources) Start: 08-03-2024 take 1 tablet by mouth in the morning topiramate (Topamax) 50 MG tablet Indications: Migraine without aura, not intractable, without status migrainosus (CMS/HCC) Take 50 mg by mouth in the morning and 50 mg before bedtime. 60 tablet 3 08/03/2024 Active Start: 07-06-2024 End: 08-03-2024 take 1 tablet by mouth once topiramate (Topamax) 25 MG tablet Indications: Migraine without aura, not intractable, without status migrainosus (CMS/HCC) Take 1 tablet (25 mg) by mouth every 12 (twelve) hours 60 tablet 3 07/06/2024 08/03/2024 Discontinued (Reorder) vitamin b12 1 mg/ml injectab le solution (19 sources) Vitamin B12 Cyanocobalamin ( B-12 Compliance Injection) 1000 MCG/ML kit Inject as directed Active Problems Active Problems Problem Classification Problem Date Documented Date Episodic/Chronic Acute cerebrovascular disease (20 sources) Cerebrovascular accident; Translations: [Cerebral infarction, unspecified] Onset: 01-24-2024 01-24-2024 Chronic Acute cerebrovascular disease (1 source) Acute cerebrovascular disease Onset: 06-28-2024 Anxiety disorders (20 sources) Generalized anxiety disorder; Translations: [Generalized anxiety disorder] Onset: 01-24-2024 01-24-2024 Chronic Complication of device; implant or graft (2 sources) Pain; Translations: [Pain due to other internal prosthetic devices, implants and grafts, initial encounter] 12-01-2023 Episodic Coronary atherosclerosis and other heart disease (20 sources) Atherosclerotic heart disease of [place] coronary artery without angina pectoris; Translations: [Coronary arteriosclerosis] Onset: 01-27-2023 Chronic Coronary atherosclerosis and other heart disease (2 sources) Coronary angioplasty status; Translations: [Coronary angioplasty status] Onset: 02-19-2023 Episodic Disorders of lipid metabolism (2 sources) Mixed hyperlipidemia; Translations: [Mixed hyperlipidemia] Onset: 02-19-2023 Chronic Diverticulosis and diverticulitis (1 source) Diverticulosis of large intestine without perforation or abscess without bleeding; Translations: [DVRTCLOS LG INT NO PERF/ABSC W/O BL] Onset: 05-12-2022 Chronic Esophageal disorders (20 sources) Gastroesophageal reflux disease without esophagitis; Translations: [Gastro-esophageal reflux disease without esophagitis] Onset: 01-24-2024 01-24-2024 Chronic Essential hypertension (20 sources) Essential (primary) hypertension; Translations: [Benign essential hypertension] Onset: 01-25-2023 Chronic Genitourinary symptoms and ill-defined conditions (20 sources) Overflow incontinence of urine; Translations: [Overflow incontinence] Onset: 07-06-2024 07-06-2024 Chronic Headache; including migraine (20 sources) Migraine without aura, not refractory ; Translations: [Migraine without aura, not intractable, without status migrainosus] Onset: 07-06-2024 08-02-2024 Chronic Hypertension with complications and secondary hypertension (2 sources) Hypertensive heart disease without heart failure; Translations: [Hypertensive heart disease without heart failure] Onset: 02-19-2023 Chronic Mood disorders (20 sources) Recurrent major depressive episodes, mild ; Translations: [Major depressive disorder, recurrent, mild] Onset: 01-24-2024 01-24-2024 Chronic Neoplasms of unspecified nature or uncertain behavior (20 sources) Essential thrombocythemia; Translations: [Essential (hemorrhagic) thrombocythemia] Onset: 06-08-2016 Chronic Osteoporosis (20 sources) Postmenopausal osteoporosis; 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 without current pathological fracture] Onset: 01-24-2024 01-24-2024 Chronic Other aftercare (5 sources) Other alf (current) drug therapy; Translations: [OTH 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 CURRENT DRUG THERAPY] Onset: 05-07-2022 Episodic Other connective tissue disease (1 source) Presence of left artificial hip joint; Translations: [Presence of left artificial hip joint] Onset: 12-21-2023 Chronic Other connective tissue disease (20 sources) History of repair of hip joint; Translations: [Presence of left artificial hip joint] Onset: 01-24-2024 01-24-2024 Chronic Other non-traumatic joint disorders (2 sources) Hip pain; Translations: [Pain in left hip] 12-01-2023 Episodic Other non-traumatic joint disorders (1 source) Pain in left hip; Translations: [Pain in left hip] Onset: 12-15-2023 Episodic Prolapse of female genital organs (20 sources) Uterovaginal prolapse, unspecified; Translations: [Uterovaginal prolapse, unspecified] Onset: 01-24-2024 01-24-2024 Chronic Residual codes; unclassified (1 source) Other specified postprocedural states; Translations: [Other specified postprocedural states] Onset: 12-16-2023 Episodic Residual codes; unclassified (1 source) Presence of other specified devices; Translations: [Presence of other specified devices] Onset: 12-15-2023 Episodic Spondylosis; intervertebral disc disorders; other back problems (20 sources) Spondylosis without myelopathy or radiculopathy, lumbar region; Translations: [Degeneration of cervical intervertebral disc] Onset: 05-12-2022 01-24-2024 Chronic Thyroid disorders (20 sources) Goiter; Translations: [Iodine-deficiency related diffuse (endemic) goiter] Onset: 01-24-2024 01-24-2024 Chronic Past or Other Problems Problem Classification Problem Date Documented Da te Episodic/Chronic Abdominal pain (1 source) Generalized abdominal pain; Translations: [GENERALIZED ABDOMINAL PAIN] Onset: 05-12-2022 Episodic Blindness and vision defects (20 sources) Eye / vision finding; Translations: [Unspecified visual disturbance] Onset: 07-06-2024 07-06-2024 Episodic Calculus of urinary tract (1 source) Calculus of kidney; Translations: [CALCULUS OF KIDNEY] Onset: 05-12-2022 Episodic Deficiency and other anemia (20 sources) Megaloblastic anemia due to vitamin B>12< deficiency; Translations: [Other megaloblastic anemias, not elsewhere classified] Onset: 09-02-2018 Episodic Deficiency and other anemia (16 sources) Iron deficiency anemia; Translations: [Iron deficiency anemia, unspecified] Onset: 12-21-2017 12-21-2017 Episodic Diabetes mellitus without complication (20 sources) Prediabetes; Translations: [Prediabetes] Onset: 01-24-2024 01-24-2024 Episodic Genitourinary symptoms and ill-defined conditions (6 sources) Other microscopic hematuria; Translations: [Personal history of urinary (tract) infections] Onset: 03-17-2022 Episodic Headache; including migraine (14 sources) Bilateral headache; Translations: [Bilateral headaches] Onset: 01-18-2018 01-18-2018 Episodic Mood disorders (3 sources) Mood disorders Onset: 10-11-2024 10-11-2024 Nonmalignant breast conditions (5 sources) Unspecified lump in unspecified breast; Translations: [Mastodynia] Onset: 02-09-2022 Episodic Other aftercare (1 source) manager intermediate (current) use of aspirin; Translations: [NURSING HOME CURRENT USE OF ASPIRIN] Onset: 08-25-2022 Episodic Other bone disease and musculoskeletal deformities (15 sources) Osteopenia; Translations: [Other specified disorders of bone density and structure, multiple sites] Onset: 07-08-2017 Episodic Other fractures (1 source) Collapsed vertebra, not elsewhere classified, lumbar region, initial encounter for fracture; Translations: [COLLAPSED VERT NEC LUMBAR INIT ENC] Onset: 05-12-2022 Episodic Other non-epithelial cancer of skin (14 sources) Basal cell carcinoma of nose; Translations: [Basal cell carcinoma of skin of nose] Onset: 06-08-2016 06-08-2016 Episodic Other non-traumatic joint disorders (20 sources) Chronic pain of right upper limb; Translations: [Pain in right shoulder] Onset: 01-24-2024 01-24-2024 Episodic Residual codes; unclassified (4 sources) Disorientation, [...] Test Name Value Interpretation Reference Range Facility ALL CBC WITH AUTO DIFFon BASOPHILS ABSOLUTE AUTO 0.1 [facility] Basophils/100 WBC (Bld) 1.3 % 0.2 - 2.0 % [facility] Eosinophils/100 WBC (Bld) 2 % 0.9 - 7.0 % [facility] Erythrocyte distribution width (RBC) [Ratio] 14.3 % 11.0 - 15.0 % [facility] Hematocrit (Bld) [Volume fraction] 39.6 % 36.0 - 48.0 % [facility] Hemoglobin (Bld) [Mass/Vol] 13.6 g/dL 12.0 - 16.0 g/dL [facility] IMMATURE GRANULOCYTES ABS AUTO 0.02 [facility] Immature granulocytes/100 WBC (Bld) 0.4 % 0.0 - 0.5 % [facility] Interpretation and review of laboratory results Abnormal [facility] LYMPHOCYTES ABSOLUTE AUTO 1.3 [facility] Lymphocytes/100 WBC (Bld) 28.2 % 20.5 - 60.0 % [facility] MCH (RBC) [Entitic mass] 43.9 pg High 26.7 - 34.0 pg [facility] MCHC (RBC) [Mass/Vol] 34.3 g/dL 29.9 - 35.2 g/dL [facility] MCV (RBC) [Entitic vol] 127.7 fL High 81.0 - 99.0 fL [facility] Comment on above: MACROCYTOSIS 4+ MONOCYTES ABSOLUTE AUTO 0.4 [facility] Monocytes/100 WBC (Bld) 8.8 % 1.7 - 12.0 % [facility] NEUTROPHILS ABSOLUTE AUTO 2.7 [facility] Neutrophils/100 WBC (Bld) 59.3 % 43.0 - 75.0 % [facility] Platelet mean volume (Bld) [Entitic vol] 10.2 fL 9.5 - 13.5 fL [facility] TBH EO # 0.1 [facility] TB PLT 451 High [facility] TB RBC 3.1 Low [facility] TB WBC 4.6 [facility] No Panel Informationon 08-29 [facility] RETICULOCYTE PCT AUTOon 08-02 RETICULOCYTE PCT AUTO 1.62 % 0.60 - 3.10 % [facility] ALL LDHon 07-14-2024 LDH [Catalytic activity/Vol] 167 U/L 81 - 234 U/L [facility] CMP (CMP) (FOR REMOTE FH C USE)on 07-14-2024 Albumin [Mass/Vol] 3.9 g/dL 3.4 - 5.0 g/dL [facility] ALBUMIN GLOBULIN RATIO 1.3 [facility] ALP [Catalytic activity/Vol] 90 U/L 46 - 116 U/L [facility] ALT [Catalytic activity/Vol] 14 U/L 14 - 59 U/L [facility] Anion gap [Moles/Vol] 15.7 mmol/L [facility] AST [Catalytic activity/Vol] 17 U/L 15 - 37 U/L [facility] Bilirubin [Mass/Vol] 0.5 mg/dL 0.2 - 1.0 mg/dL [facility] Calcium [Mass/Vol] 8.9 mg/dL 8.5 - 10. 1 mg/dL [facility] Chloride [Moles/Vol] 101 mmol/L 98 - 107 mmol/L [facility] CO2 [Moles/Vol] 23.6 mmol/L 21.0 - 32.0 mmol/L [facility] Creatinine [Mass/Vol] 1.37 mg/dL High 0.55 - 1.02 mg/dL [facility] GFR/1.73 sq M.predicted CKD-EPI (S/P/Bld) [Vol rate/Area] 44 Low 60 - PINF [facility] Globulin (S) [Mass/Vol] 3.1 g/dL [facility] Glucose [Mass/Vol] 130 mg/dL High 74 - 106 mg/dL [facility] Interpretation and review of laboratory results Abnormal [facility] Potassium [Moles/Vol] 4.3 mmol/L 3.5 - 5.1 mmol/L [facility] Protein [Mass/Vol] 7.0 g/dL 6.4 - 8.2 g/dL NO [facility] Sodium [Moles/Vol] 136 mmol/L 136 - 145 mmol/L [facility] TBH EGFR-NON AF IRAQI 37 Low 60 - PINF [facility] Urea nitrogen [Mass/Vol] 17.0 mg/dL 7.0 - 18.0 mg/dL [facility] Urea nitrogen/Creatinine [Mass ratio] 12.4 mg/mg [facility] No Panel Informationon 07-14 [facility] CNPNon 04-04-2024 CNPN Telephone (HEMASA) JOSEFA CASTILLO ([id number]) 1940 F Date Time Provider Department 04/04/24 ROD ROMAN JANESSAEVERARDO During your visit today, we recorded the [...] Fully Assessed Reason for Visit: Lab Orders [6128] Primary Visit Diagnosis: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] Order(s):LACTATE DEHYDROGENASE [SQLD6] Order #: [id number] FUTURE COMPLETE BLOOD COUNT AND DIFFERENTIAL [SQCBCDIF] Order #: [id number] FUTURE COMPREHENSIVE METABOLIC PANEL [SQCMP] Order #: [id number] FUTURE Prescriptions as of 04/04/2024 - QUEtiapine [...] Status:Closed by ROD ROMAN on 04/04/24 Normal [facility] XR HIP LEFT (2-3 VIEWS)on XR HIP [...] Aristeo George DO 02/23/24 Final result Normal [facility] XR HIP 2-3 VW W PELVIS [...] Aristeo George DO 01/07/24 Final result Normal [facility] XR HIP 2-3 VW W PELVIS [...] Aristeo George DO 12/29/23 Final result Normal [facility] CBC with Diffon 12-22-2023 Abs. Basophil 0.00 k/uL Normal 0.00-0.20 [facility] Comment on above: Performed By: #### C DP #### [place] [address] [employer]: Ti Willis MD Abs.Imm.Granulocyte 0.10 k/uL Normal 0.00-0.30 [facility] Comment on above: Performed By: #### C DP #### [place] [address] [employer]: Ti Willis MD Abs.Neutrophil (Seg) 6.92 k/uL Normal 1.50-8.10 [facility] Comment on above: Performed By: #### C DP #### [place] [address] [employer]: Ti Willis MD Basophils/100 WBC (Bld) 0 % Normal 0-2 [facility] Comment on above: Performed By: #### C DP #### [place] [address] [employer]: Ti Willis MD Eosinophils (Bld) [#/Vol] 0.10 10*3/uL Normal 0.00-0.44 [facility] Comment on above: Performed By: #### C DP #### [address] [address] [employer]: Ti Willis MD Eosinophils/100 WBC (Bld) 1 % Normal 1-4 [facility] Comment on above: Performed By: #### C DP #### [address] [address] [employer]: Ti Willis MD Immature granulocytes/100 WBC (Bld) 1 % High 0 [facility] Comment on above: Performed By: #### C DP #### [address] [address] [employer]: Ti Willis MD Lymphocytes (Bld) [#/Vol] 1.43 10*3/uL Normal 1.10-3.70 [facility] Comment on above: Performed By: #### C DP #### [address] [address] [employer]: Ti Willis MD Lymphocytes/100 WBC (Bld) 15 % Low 24-43 [facility] Comment on above: Performed By: #### C DP #### [address] [address] [employer]: Ti Willis MD Monocytes (Bld) [#/Vol] 0.95 10*3/uL Normal 0.10-1.20 [facility] Comment on above: Performed By: #### C DP #### [address] [address] [employer]: Ti Willis MD Monocytes/100 WBC (Bld) 10 % Normal 3-12 [facility] Comment on above: Performed By: #### C DP #### [address] [address] [employer]: Ti Willis MD Morphology Juni (Bld) [Interp] ANISOCYTOSIS PRESENT Normal [facility] Comment on above: Result Comment: MACR OCYTOSIS PRESENT Performed By: #### C DP #### [address] [address] [employer]: Ti Willis MD Neutrophil (Seg) 73 % High 36-65 [facility] Comment on above: Performed By: #### C DP #### [address] [address] [employer]: Ti Willis MD Erythrocyte distribution width (RBC) [Ratio] 18.4 % High 11.8-14.4 [facility] Comment on above: Performed By: #### C DP #### [address] [address] [employer]: Ti Willis MD Hematocrit (Bld) [Volume fraction] 26.4 % Low 36.3-47.1 [facility] Comment on above: Performed By: #### C DP #### [address] [address] [employer]: Ti Willis MD Hemoglobin (Bld) [Mass/Vol] 8.5 g/dL Low 11.9-15.1 [facility] Comment on above: Performed By: #### C DP #### [address] [address] [employer]: Ti Willis MD MCH (RBC) [Entitic mass] 40.3 pg High 25.2-33.5 [facility] Comment on above: Performed By: #### C DP #### [address] [address] [employer]: Ti Willis MD MCHC (RBC) [Mass/Vol] 32.2 g/dL Normal 28.4-34.8 [facility] Comment on above: Performed By: #### C DP #### [address] [address] [employer]: Ti Willis MD MCV (RBC) [Entitic vol] 125.1 fL High 82.6-102.9 [facility] Comment on above: Performed By: #### C DP #### [address] [address] [employer]: Ti Willis MD NRBC Automated 0.0 per 100 WBC Normal 0.0 [facility] Comment on above: Performed By: #### C DP #### [address] [address] [employer]: Ti Willis MD Platelet mean volume (Bld) [Entitic vol] 10.6 fL Normal 8.1-13.5 [facility] Comment on above: Performed By: #### C DP #### [address] [address] [employer]: Ti Willis MD Platelets (Bld) [#/Vol] 454 10*3/uL High 138-453 [facility] Comment on above: Performed By: #### C DP #### [address] [address] [employer]: Ti Willis MD RBC (Bld) [#/Vol] 2.11 10*6/uL Low 3.95-5.11 [facility] Comment on above: Performed By: #### C DP #### [address] [address] [employer]: Ti Willis MD WBC (Bld) [#/Vol] 9.5 10*3/uL Normal 3.5-11.3 [facility] Comment on above: Performed By: #### C DP #### [address] [address] [employer]: Ti Willis MD B12/Folate Panelon Cobalamin (Vitamin B12) [Mass/Vol] 295 pg/mL Normal 232-1245 [facility] Comment on above: Performed By: #### W BK, WBCL, CVHH, WBNA, ABG, LACTIC, IOCAL, GLUO #### [address] [address] [employer]: Ti Willis MD Folic Acid 5.6 ng/mL Normal >4.8 [facility] Comment on above: Performed By: #### W BK, WBCL, CVHH, WBNA, ABG, LACTIC, IOCAL, GLUO #### [address] [address] [employer]: Ti Willis MD CBC with Diffon Abs. Basophil 0.00 k/uL Normal 0.00-0.20 [facility] Comment on above: Performed By: #### W BK, WBCL, CVHH, WBNA, ABG, LACTIC, IOCAL, GLUO #### [address] [address] [employer]: Ti Willis MD Abs.Imm.Granulocyte 0.11 k/uL Normal 0.00-0.30 [facility] Comment on above: Performed By: #### W BK, WBCL, CVHH, WBNA, ABG, LACTIC, IOCAL, GLUO #### [facility] [address] [place] [address] [employer]: Ti Willis MD Abs.Neutrophil (Seg) 8.96 k/uL High 1.50-8.10 [facility] Comment on above: Performed By: #### W BK, WBCL, CVHH, WBNA, ABG, LACTIC, IOCAL, GLUO #### [address] [address] [employer]: Ti Willis MD Basophils/100 WBC (Bld) 0 % Normal 0-2 [facility] Comment on above: Performed By: #### W BK, WBCL, CVHH, WBNA, ABG, LACTIC, IOCAL, GLUO #### [address] [address] [employer]: Ti Willis MD Eosinophils (Bld) [#/Vol] 0.11 10*3/uL Normal 0.00-0.44 [facility] Comment on above: Performed By: #### W BK, WBCL, CVHH, WBNA, ABG, LACTIC, IOCAL, GLUO #### [address] [address] [employer]: Ti Willis MD Eosinophils/100 WBC (Bld) 1 % Normal 1-4 [facility] Comment on above: Performed By: #### W BK, WBCL, CVHH, WBNA, ABG, LACTIC, IOCAL, GLUO #### [address] [address] [employer]: Ti Willis MD Immature granulocytes/100 WBC (Bld) 1 % High 0 [facility] Comment on above: Performed By: #### W BK, WBCL, CVHH, WBNA, ABG, LACTIC, IOCAL, GLUO #### [address] [address] [employer]: Ti Willis MD Lymphocytes (Bld) [#/Vol] 1.12 10*3/uL Normal 1.10-3.70 [facility] Comment on above: Performed By: #### W BK, WBCL, CVHH, WBNA, ABG, LACTIC, IOCAL, GLUO #### [address] [address] [employer]: Ti Willis MD Lymphocytes/100 WBC (Bld) 10 % Low 24-43 [facility] Comment on above: Performed By: #### W BK, WBCL, CVHH, WBNA, ABG, LACTIC, IOCAL, GLUO #### [address] [address] [employer]: Ti Willis MD Monocytes (Bld) [#/Vol] 0.90 10*3/uL Normal 0.10-1.20 [facility] Comment on above: Performed By: #### W BK, WBCL, CVHH, WBNA, ABG, LACTIC, IOCAL, GLUO #### [address] [address] [employer]: Ti Willis MD Monocytes/100 WBC (Bld) 8 % Normal 3-12 [facility] Comment on above: Performed By: #### W BK, WBCL, CVHH, WBNA, ABG, LACTIC, IOCAL, GLUO #### [address] [address] [employer]: Ti Willis MD Morphology Juni (Bld) [Interp] ANISOCYTOSIS PRESENT Normal [facility] Comment on above: Result Comment: MACR OCYTOSIS PRESENT Performed By: #### W BK, WBCL, CVHH, WBNA, ABG, LACTIC, IOCAL, GLUO #### [address] [address] [employer]: Ti Willis MD Neutrophil (Seg) 80 % High 36-65 [facility] Comment on above: Performed By: #### W BK, WBCL, CVHH, WBNA, ABG, LACTIC, IOCAL, GLUO #### [address] [address] [employer]: Ti Willis MD Erythrocyte distribution width (RBC) [Ratio] 18.4 % High 11.8-14.4 [facility] Comment on above: Performed By: #### W BK, WBCL, CVHH, WBNA, ABG, LACTIC, IOCAL, GLUO #### [address] [address] [employer]: Ti Willis MD Hematocrit (Bld) [Volume fraction] 24.4 % Low 36.3-47.1 [facility] Comment on above: Performed By: #### W BK, WBCL, CVHH, WBNA, ABG, LACTIC, IOCAL, GLUO #### [address] [address] [employer]: Ti Willis MD Hemoglobin (Bld) [Mass/Vol] 7.9 g/dL Low 11.9-15.1 [facility] Comment on above: Performed By: #### W BK, WBCL, CVHH, WBNA, ABG, LACTIC, IOCAL, GLUO #### [address] [address] [employer]: Ti Willis MD MCH (RBC) [Entitic mass] 40.5 pg High 25.2-33.5 [facility] Comment on above: Performed By: #### W BK, WBCL, CVHH, WBNA, ABG, LACTIC, IOCAL, GLUO #### [address] [address] [employer]: Ti Willis MD MCHC (RBC) [Mass/Vol] 32.4 g/dL Normal 28.4-34.8 [facility] Comment on above: Performed By: #### W BK, WBCL, CVHH, WBNA, ABG, LACTIC, IOCAL, GLUO #### [address] [address] [employer]: iT Willis MD MCV (RBC) [Entitic vol] 125.1 fL High 82.6-102.9 [facility] Comment on above: Performed By: #### W BK, WBCL, CVHH, WBNA, ABG, LACTIC, IOCAL, GLUO #### [address] [address] [employer]: Ti Willis MD NRBC Automated 0.0 per 100 WBC Normal 0.0 [facility] Comment on above: Performed By: #### W BK, WBCL, CVHH, WBNA, ABG, LACTIC, IOCAL, GLUO #### [address] [address] [employer]: Ti Willis MD Platelet mean volume (Bld) [Entitic vol] 10.7 fL Normal 8.1-13.5 [facility] Comment on above: Performed By: #### W BK, WBCL, CVHH, WBNA, ABG, LACTIC, IOCAL, GLUO #### [address] [address] [employer]: Ti Willis MD Platelets (Bld) [#/Vol] 366 10*3/uL Normal 138-453 [facility] Comment on above: Performed By: #### W BK, WBCL, CVHH, WBNA, ABG, LACTIC, IOCAL, GLUO #### [address] [address] [employer]: Ti Willis MD RBC (Bld) [#/Vol] 1.95 10*6/uL Low 3.95-5.11 [facility] Comment on above: Performed By: #### W BK, WBCL, CVHH, WBNA, ABG, LACTIC, IOCAL, GLUO #### [address] [address] [employer]: Ti Willis MD WBC (Bld) [#/Vol] 11.2 10*3/uL Normal 3.5-11.3 [facility] Comment on above: Performed By: #### W BK, WBCL, CVHH, WBNA, ABG, LACTIC, IOCAL, GLUO #### [address] [address] [employer]: Ti Willis MD TSH w/reflex to FT4on 2023 Thyroid Stim. Horm. 3.24 uIU/mL Normal 0.30-5.00 [facility] Comment on above: Performed By: #### C DP #### [address] [address] [employer]: Ti Willis MD Basic Metab w/rfx MGon 12-20 Anion gap [Moles/Vol] 10 mmol/L Normal 9-17 [facility] Comment on above: Performed By: #### C DP #### [address] [address] [employer]: Ti Willis MD Calcium [Mass/Vol] 8.0 mg/dL Low 8.6-10.4 [facility] Comment on above: Performed By: #### C DP #### [address] [address] [employer]: Ti Willis MD Chloride [Moles/Vol] 100 mmol/L Normal 98-107 [facility] Comment on above: Performed By: #### C DP #### [address] [address] [employer]: Ti Willis MD CO2 [Moles/Vol] 25 mmol/L Normal 20-31 [facility] Comment on above: Performed By: #### C DP #### [address] [address] [employer]: Ti Willis MD Creatinine [Mass/Vol] 0.7 mg/dL Normal 0.5-0.9 [facility] Comment on above: Performed By: #### C DP #### [address] [address] [employer]: Ti Willis MD GFR/1.73 sq M.predicted among non-blacks MDRD (S/P/Bld) [Vol rate/Area] mL/min/{1.73_m2} Normal >60 [facility] Comment on above: Result Comment: These [...] secretion. Performed By: #### C DP #### [address] [address] [employer]: Ti Willis MD Glucose [Mass/Vol] 104 mg/dL High 70-99 [facility] Comment on above: Performed By: #### C DP #### [address] [address] [employer]: Ti Willis MD Potassium [Moles/Vol] 4.1 mmol/L Normal 3.7-5.3 [facility] Comment on above: Performed By: #### C DP #### [address] [address] [employer]: Ti Willis MD Sodium [Moles/Vol] 135 mmol/L Normal 135-144 [facility] Comment on above: Performed By: #### C DP #### [address] [address] [employer]: Ti Willis MD Urea nitrogen [Mass/Vol] 21 mg/dL Normal 8-23 [facility] Comment on above: Performed By: #### C DP #### [address] [address] [employer]: Ti Willis MD CBCon 12-20-2023 Erythrocyte distribution width (RBC) [Ratio] 18.5 % High 11.8-14.4 [facility] Comment on above: Performed By: #### C DP #### [address] [address] [employer]: Ti Willis MD Hematocrit (Bld) [Volume fraction] 24.4 % Low 36.3-47.1 [facility] Comment on above: Performed By: #### C DP #### [address] [address] [employer]: Ti Willis MD Hemoglobin (Bld) [Mass/Vol] 8.1 g/dL Low 11.9-15.1 [facility] Comment on above: Performed By: #### C DP #### [address] [address] [employer]: Ti Willis MD MCH (RBC) [Entitic mass] 40.7 pg High 25.2-33.5 [facility] Comment on above: Performed By: #### C DP #### [address] [address] [employer]: Ti Willis MD MCHC (RBC) [Mass/Vol] 33.2 g/dL Normal 28.4-34.8 [facility] Comment on above: Performed By: #### C DP #### [address] [address] [employer]: Ti Willis MD MCV (RBC) [Entitic vol] 122.6 fL High 82.6-102.9 [facility] Comment on above: Performed By: #### C DP #### [address] [address] [employer]: Ti Willis MD NRBC Automated 0.0 per 100 WBC Normal 0.0 [facility] Comment on above: Performed By: #### C DP #### [address] [address] [employer]: Ti Willis MD Platelet mean volume (Bld) [Entitic vol] 10.6 fL Normal 8.1-13.5 [facility] Comment on above: Performed By: #### C DP #### [facility] [address] [place] [address] [employer]: Ti Willis MD Platelets (Bld) [#/Vol] 356 10*3/uL Normal 138-453 [facility] Comment on above: Performed By: #### C DP #### [address] [address] [employer]: Ti Willis MD RBC (Bld) [#/Vol] 1.99 10*6/uL Low 3.95-5.11 [facility] Comment on above: Performed By: #### C DP #### [address] [address] [employer]: Ti Willis MD WBC (Bld) [#/Vol] 10.3 10*3/uL Normal 3.5-11.3 [facility] Comment on above: Performed By: #### C DP #### [address] [address] [employer]: Ti Willis MD Cult,Urineon 12-19-2023 Cult,Urine Specimen [...] Tobramycin <=1 SUSCEPTIBLE Trimethoprim/Sulfa <=20 SUSCEPTIBLE Susceptible [facility] Comment on above: Performed By: #### C DP #### [facility] [place] [address] [employer]: Ti Willis MD OPERATIVE REPORTon OPERATIVE REPORT [facility] [address] [place] [id number] OPERATIVE REPORT PATIENT NAME: JOSEFA CASTILLO : 1940 MED REC NO: [id number] ROOM: [facility] ACCOUNT NO: [id number] ADMIT DATE: 12/15/2023 PROVIDER: Aristeo George DATE OF PROCEDURE: 12/17/2023 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 POSTOPERATIVE DIAGNOSIS: Failed hardware left proximal femur. PROCEDURE: Conversion of prior hip surgery to left total hip arthroplasty. SURGEON: Aristeo George DO COOK MESS: Edgar Middleton MD, PGY-2, MD, PGY-4, and [...] 0 PDS, deep dermal layers with 2-0 [place] (more content not included)... Normal [facility] Arterial Blood Gaseson 12-17 Ellis Test INFORMATION NOT PROVIDED [facility] Comment on above: Performed By: #### W BK, WBCL, CVHH, WBNA, ABG, LACTIC, IOCAL, GLUO #### [facility] [address] [place], [place] [id number] [employer]: Ti Willis MD Body Temp. 36.0 [facility] Comment on above: Performed By: #### W BK, WBCL, CVHH, WBNA, ABG, LACTIC, IOCAL, GLUO #### [facility] [address] [place], [place] [id number] [employer]: Ti Willis MD Carboxy Hgb 1.1 % Normal 0-5 [facility] Comment on above: Result Comment: Reference Range: Non-Smokers 0-2% Average Smoker 2-4% Heavy Smoker <10% Performed By: #### W BK, WBCL, CVHH, WBNA, ABG, LACTIC, IOCAL, GLUO #### [facility] [address] [place], [place] [id number] [employer]: Ti Willis MD FIO2 60 Normal [facility] Comment on above: Performed By: #### W BK, WBCL, CVHH, WBNA, ABG, LACTIC, IOCAL, GLUO #### [address] [address] [employer]: Ti Willis MD HCO3 (Bld) [Moles/Vol] 23.4 mmol/L Normal 22-27 [facility] Comment on above: Performed By: #### W BK, WBCL, CVHH, WBNA, ABG, LACTIC, IOCAL, GLUO #### [address] [address] [employer]: Ti Willis MD Negative Base Excess 0.3 mmol/L Normal 0.0-2.0 [facility] Comment on above: Performed By: #### W BK, WBCL, CVHH, WBNA, ABG, LACTIC, IOCAL, GLUO #### [address] [address] [employer]: Ti Willis MD Oxygen (Bld) [Partial pressure] 237.0 mm[Hg] High 75-95 [facility] Comment on above: Performed By: #### W BK, WBCL, CVHH, WBNA, ABG, LACTIC, IOCAL, GLUO #### [address] [address] [employer]: Ti Willis MD Oxygen saturation in Blood 98.3 % Normal 94-100 [facility] Comment on above: Performed By: #### W BK, WBCL, CVHH, WBNA, ABG, LACTIC, IOCAL, GLUO #### [address] [address] [employer]: Ti Willis MD pCO2 36.8 mmHg Normal 32-45 [facility] Comment on above: Performed By: #### W BK, WBCL, CVHH, WBNA, ABG, LACTIC, IOCAL, GLUO #### [address] [address] [employer]: Ti Willis MD pH (Bld) 7.418 [pH] Normal 7.350-7.450 [facility] Comment on above: Performed By: #### W BK, WBCL, CVHH, WBNA, ABG, LACTIC, IOCAL, GLUO #### [address] [address] [employer]: Ti Willis MD CV Hgb/Hcton 1 Hematocrit (Bld) [Volume fraction] 35.4 % Low 36.3-47.1 [facility] Comment on above: Performed By: #### W BK, WBCL, CVHH, WBNA, ABG, LACTIC, IOCAL, GLUO #### [address] [address] [employer]: Ti Willis MD Hemoglobin (Bld) [Mass/Vol] 11.5 g/dL Low 11.9-15.1 [facility] Comment on above: Performed By: #### W BK, WBCL, CVHH, WBNA, ABG, LACTIC, IOCAL, GLUO #### [facility] [address] [place] [address] [employer]: Ti Willis MD Calcium, Ionicon 12-17-2023 Calcium [Moles/Vol] 1.14 mmol/L Normal 1.13-1.33 [facility] Comment on above: Performed By: #### W BK, WBCL, CVHH, WBNA, ABG, LACTIC, IOCAL, GLUO #### [facility] [address] [place] [address] [employer]: Ti Willis MD Chloride - Whole Blon 2023 Chloride [Moles/Vol] 106 mmol/L Normal 98-110 [facility] Comment on above: Performed By: #### W BK, WBCL, CVHH, WBNA, ABG, LACTIC, IOCAL, GLUO #### [facility] [address] [place] [address] [employer]: Ti Willis MD FLUORO FOR SURGICAL PROCEDUR ESon 12-17-2023 FLUORO FOR SURGICAL PROCEDURES Radiology exam is complete. No Radiologist dictation. Please follow up with ordering provider. Final result Normal [facility] Glucose,Whole Bloodon 2023 Glucose [Mass/Vol] 101 mg/dL Normal 65-105 [facility] Comment on above: Performed By: #### W BK, WBCL, CVHH, WBNA, ABG, LACTIC, IOCAL, GLUO #### [facility] [address] [place] [address] [employer]: Ti Willis MD Lactic Acidon 12-17-2023 Lactic Acid,Whole Bl 2.2 mmol/L High 0.7-2.1 [facility] Comment on above: Performed By: #### W BK, WBCL, CVHH, WBNA, ABG, LACTIC, IOCAL, GLUO #### [facility] [address] [place] [address] [id number] [employer]: Ti Willis MD Potassium - Whole Blon 12-17 Potassium [Moles/Vol] 3.3 mmol/L Low 3.6-5.0 [facility] Comment on above: Performed By: #### W BK, WBCL, CVHH, WBNA, ABG, LACTIC, IOCAL, GLUO #### [facility] [address] [place] [address] [id number] [employer]: Ti Willis MD Sodium - Whole Bloodon 12-17 Sodium [Moles/Vol] 137 mmol/L Normal 136-145 [facility] Comment on above: Performed By: #### W BK, WBCL, CVHH, WBNA, ABG, LACTIC, IOCAL, GLUO #### [facility] [facility] [address] [place] [address] [employer]: Ti Willis MD Type + Screenon 12-17-2023 Type + Screen Sample Expiration 12/20/2023,2359 Arm Band Number [id number] ABO/Rh(D) A POSITIVE Antibody Screen NEGATIVE Unit Number [id number] Blood Component Type Leukocyte Reduced Red Cell Unit Division 00 Status of Unit REL FROM ALLOC Transfusion Status OK TO TRANSFUSE Crossmatch Result COMPATIBLE Unit Number [id number] Blood Component Type Leukocyte Reduced Red Cell Unit Division 00 Status of Unit REL FROM ALLOC Transfusion Status OK TO TRANSFUSE Crossmatch Result COMPATIBLE Normal [facility] Comment on above: Performed By: #### C DP #### [facility] [address] [place] [address] [employer]: Ti Willis MD XR HIP 2-3 VW [...] Magana IV, MD 12/17/23 Final result Normal [facility] CBC with Diffon 12-16-2023 Abs. Basophil 0.05 k/uL Normal 0.00-0.20 [facility] Comment on above: Performed By: #### C DP #### [address] [place] [address] [employer]: Ti Willis MD Abs.Imm.Granulocyte 0.00 k/uL Normal 0.00-0.30 [facility] Comment on above: Performed By: #### C DP #### [address] [address] [employer]: Ti Willis MD Abs.Neutrophil (Seg) 2.52 k/uL Normal 1.50-8.10 [facility] Comment on above: Performed By: #### C DP #### [address] [address] [employer]: Ti Willis MD Basophils/100 WBC (Bld) 1 % Normal 0-2 [facility] Comment on above: Performed By: #### C DP #### [place] [address] [employer]: Ti Willis MD Eosinophils (Bld) [#/Vol] 0.09 10*3/uL Normal 0.00-0.44 [facility] Comment on above: Performed By: #### C DP #### [place] [address] [employer]: Ti Willis MD Eosinophils/100 WBC (Bld) 2 % Normal 1-4 [facility] Comment on above: Performed By: #### C DP #### [place] [address] [employer]: Ti Willis MD Immature granulocytes/100 WBC (Bld) 0 % Normal 0 [facility] Comment on above: Performed By: #### C DP #### [place] [address] [employer]: Ti Willis MD Lymphocytes (Bld) [#/Vol] 1.43 10*3/uL Normal 1.10-3.70 [facility] Comment on above: Performed By: #### C DP #### [address] [address] [employer]: Ti Willis MD Lymphocytes/100 WBC (Bld) 31 % Normal 24-43 [facility] Comment on above: Performed By: #### C DP #### [address] [address] [employer]: Ti Willis MD Monocytes (Bld) [#/Vol] 0.51 10*3/uL Normal 0.10-1.20 [facility] Comment on above: Performed By: #### C DP #### [address] [address] [employer]: Ti Willis MD Monocytes/100 WBC (Bld) 11 % Normal 3-12 [facility] Comment on above: Performed By: #### C DP #### [address] [address] [employer]: Ti Willis MD Morphology Juni (Bld) [Interp] ANISOCYTOSIS PRESENT Normal [facility] Comment on above: Result Comment: MACR OCYTOSIS PRESENT Performed By: #### C DP #### [address] [address] [employer]: Ti Willis MD Neutrophil (Seg) 55 % Normal 36-65 [facility] Comment on above: Performed By: #### C DP #### [address] [address] [employer]: Ti Willis MD Erythrocyte distribution width (RBC) [Ratio] 19.2 % High 11.8-14.4 [facility] Comment on above: Performed By: #### C DP #### [address] [address] [employer]: Ti Willis MD Hematocrit (Bld) [Volume fraction] 36.2 % Low 36.3-47.1 [facility] Comment on above: Performed By: #### C DP #### [place] [address] [employer]: Ti Willis MD Hemoglobin (Bld) [Mass/Vol] 11.9 g/dL Normal 11.9-15.1 [facility] Comment on above: Performed By: #### C DP #### [place] [address] [employer]: Ti Willis MD MCH (RBC) [Entitic mass] 39.5 pg High 25.2-33.5 [facility] Comment on above: Performed By: #### C DP #### [place] [address] [employer]: Ti Willis MD MCHC (RBC) [Mass/Vol] 32.9 g/dL Normal 28.4-34.8 [facility] Comment on above: Performed By: #### C DP #### [place] [address] [employer]: Ti Willis MD MCV (RBC) [Entitic vol] 120.3 fL High 82.6-102.9 [facility] Comment on above: Performed By: #### C DP #### [place] [address] [employer]: Ti Willis MD NRBC Automated 0.0 per 100 WBC Normal 0.0 [facility] Comment on above: Performed By: #### C DP #### [place] [address] [employer]: Ti Willis MD Platelet mean volume (Bld) [Entitic vol] 10.1 fL Normal 8.1-13.5 [facility] Comment on above: Performed By: #### C DP #### [address] [place] [address] [employer]: Ti Willis MD Platelets (Bld) [#/Vol] 361 10*3/uL Normal 138-453 [facility] Comment on above: Performed By: #### C DP #### [address] [address] [employer]: Ti Willis MD RBC (Bld) [#/Vol] 3.01 10*6/uL Low 3.95-5.11 [facility] Comment on above: Performed By: #### C DP #### [address] [address] [employer]: Ti Willis MD WBC (Bld) [#/Vol] 4.6 10*3/uL Normal 3.5-11.3 [facility] Comment on above: Performed By: #### C DP #### [address] [address] [employer]: Ti Willis MD Basic Metabolic Profon 12-15 Anion gap [Moles/Vol] 12 mmol/L Normal 9-17 [facility] Comment on above: Performed By: #### C DP #### [address] [address] [employer]: Ti Willis MD Calcium [Mass/Vol] 9.0 mg/dL Normal 8.6-10.4 [facility] Comment on above: Performed By: #### C DP #### [address] [address] [employer]: Ti Willis MD Chloride [Moles/Vol] 100 mmol/L Normal 98-107 [facility] Comment on above: Performed By: #### C DP #### [address] [address] [employer]: Ti Willis MD CO2 [Moles/Vol] 24 mmol/L Normal 20-31 [facility] Comment on above: Performed By: #### C DP #### [address] [id number] [employer]: Ti Willis MD Creatinine [Mass/Vol] 0.6 mg/dL Normal 0.5-0.9 [facility] Comment on above: Performed By: #### C DP #### [address] [address] [employer]: Ti Willis MD GFR/1.73 sq M.predicted among non-blacks MDRD (S/P/Bld) [Vol rate/Area] mL/min/{1.73_m2} Normal >60 [facility] Comment on above: Result Comment: These [...] secretion. Performed By: #### C DP #### [address] [address] [employer]: Ti Willis MD Glucose [Mass/Vol] 88 mg/dL Normal 70-99 [facility] Comment on above: Performed By: #### C DP #### [address] [address] [employer]: Ti Willis MD Potassium [Moles/Vol] 4.0 mmol/L Normal 3.7-5.3 [facility] Comment on above: Performed By: #### C DP #### [address] [address] [employer]: Ti Willis MD Sodium [Moles/Vol] 136 mmol/L Normal 135-144 [facility] Comment on above: Performed By: #### C DP #### [address] [address] [employer]: Ti Willis MD Urea nitrogen [Mass/Vol] 10 mg/dL Normal 8-23 [facility] Comment on above: Performed By: #### C DP #### [place] [address] [employer]: Ti Willis MD CBC with Diffon 12-15-2023 Abs. Basophil 0.12 k/uL Normal 0.0-0.2 [facility] Comment on above: Performed By: #### C DP #### [address] [address] [employer]: Ti Willis MD Abs.Imm.Granulocyte 0.00 k/uL Normal 0.00-0.30 [facility] Comment on above: Performed By: #### C DP #### [address] [address] [employer]: Ti Willis MD Abs.Neutrophil (Seg) 3.85 k/uL Normal 1.8-7.7 [facility] Comment on above: Performed By: #### C DP #### [address] [address] [employer]: Ti Willis MD Basophils/100 WBC (Bld) 2 % Normal 0-2 [facility] Comment on above: Performed By: #### C DP #### [address] [address] [employer]: Ti Willis MD Eosinophils (Bld) [#/Vol] 0.12 10*3/uL Normal 0.0-0.4 [facility] Comment on above: Performed By: #### C DP #### [address] [place] [address] [employer]: Ti Willis MD Eosinophils/100 WBC (Bld) 2 % Normal 1-4 [facility] Comment on above: Performed By: #### C DP #### [address] [address] [employer]: Ti Willis MD Immature granulocytes/100 WBC (Bld) 0 % Normal 0 [facility] Comment on above: Performed By: #### C DP #### [address] [address] [employer]: Ti Willis MD Lymphocytes (Bld) [#/Vol] 1.49 10*3/uL Normal 1.0-4.8 [facility] Comment on above: Performed By: #### C DP #### [address] [address] [employer]: Ti Willis MD Lymphocytes/100 WBC (Bld) 24 % Normal 24-44 [facility] Comment on above: Performed By: #### C DP #### [address] [address] [employer]: Ti Willis MD Monocytes (Bld) [#/Vol] 0.62 10*3/uL Normal 0.1-0.8 [facility] Comment on above: Performed By: #### C DP #### [address] [address] [employer]: Ti Willis MD Monocytes/100 WBC (Bld) 10 % High 1-7 [facility] Comment on above: Performed By: #### C DP #### [address] [address] [employer]: Ti Willis MD Morphology Juni (Bld) [Interp] ANISOCYTOSIS PRESENT Normal [facility] Comment on above: Result Comment: MACR OCYTOSIS PRESENT Performed By: #### C DP #### [address] [address] [employer]: Ti Willis MD Neutrophil (Seg) 62 % Normal 36-66 [facility] Comment on above: Performed By: #### C DP #### [address] [address] [employer]: Ti Willis MD Erythrocyte distribution width (RBC) [Ratio] 18.8 % High 11.8-14.4 [facility] Comment on above: Performed By: #### C DP #### [address] [address] [employer]: Ti Willis MD Hematocrit (Bld) [Volume fraction] 41.1 % Normal 36.3-47.1 [facility] Comment on above: Performed By: #### C DP #### [address] [address] [employer]: Ti Willis MD Hemoglobin (Bld) [Mass/Vol] 13.9 g/dL Normal 11.9-15.1 [facility] Comment on above: Performed By: #### C DP #### [address] [address] [employer]: Ti Willis MD MCH (RBC) [Entitic mass] 40.5 pg High 25.2-33.5 [facility] Comment on above: Performed By: #### C DP #### [address] [address] [employer]: Ti Willis MD MCHC (RBC) [Mass/Vol] 33.8 g/dL Normal 28.4-34.8 [facility] Comment on above: Performed By: #### C DP #### [address] [address] [employer]: Ti Willis MD MCV (RBC) [Entitic vol] 119.8 fL High 82.6-102.9 [facility] Comment on above: Performed By: #### C DP #### [address] [address] [employer]: Ti Willis MD NRBC Automated 0.0 per 100 WBC Normal 0.0 [facility] Comment on above: Performed By: #### C DP #### [address] [address] [employer]: Ti Willis MD Platelet mean volume (Bld) [Entitic vol] 9.7 fL Normal 8.1-13.5 [facility] Comment on above: Performed By: #### C DP #### [address] [address] [employer]: Ti Willis MD Platelets (Bld) [#/Vol] 426 10*3/uL Normal 138-453 [facility] Comment on above: Performed By: #### C DP #### [address] [address] [employer]: Ti Willis MD RBC (Bld) [#/Vol] 3.43 10*6/uL Low 3.95-5.11 [facility] Comment on above: Performed By: #### C DP #### [address] [address] [employer]: Ti Willis MD WBC (Bld) [#/Vol] 6.2 10*3/uL Normal 3.5-11.3 [facility] Comment on above: Performed By: #### C DP #### [address] [address] [employer]: Ti Willis MD PTon 12-15-2023 INR Coag (PPP) [Relative time] 1.1 {INR} Normal [facility] Comment on above: Result Comment: Therapeutic Range: Moderate Anticoagulant Intensity: INR = 2.0-3.0 High Anticoagulant Intensity: INR = 2.5-3.5 Performed By: #### C DP #### [employer] [address] [place] [address] [employer]: Ti Willis MD PT Coag (PPP) [Time] 13.6 s Normal 11.7-14.9 [facility] Comment on above: Performed By: #### C DP #### [employer] [address] [place] [address] [employer]: Ti Willis MD Vitamin D 25 OHon 12-15-2023 Vitamin D 25 [place] 14.1 ng/mL Low >29.9 [facility] Comment on above: Result Comment: Reference Range: Vitamin D status Range Deficiency <20 ng/mL Mild Deficiency 20-30 ng/mL Sufficiency 30-100 ng/mL Toxicity >100 ng/mL Performed By: #### C DP #### [employer] [address] [id number] [employer]: Ti Willis MD XR FEMUR LEFT (MIN [...] Africa Colin MD 12/15/23 Final result Normal [facility] CBC W Auto Differential pane l (Bld)on 07-29-2023 Basophils (Bld) [#/Vol] 0.07 10*3/uL Normal <0.11 [facility] Comment on above: Order Comment: Speci men Type: BLOOD SPECIMEN Ordering Facility: [facility] Address: [address] [place] [address] Performed By: #### 5 7021-8 #### [facility] CLIA [id number] [address] [place] [address] Basophils/100 WBC (Bld) 0.9 % Normal [facility] Comment on above: Order Comment: Speci men Type: BLOOD SPECIMEN Ordering Facility: [facility] Address: [address] [place] [address] Performed By: #### 5 7021-8 #### [facility] CLIA [id number] [address] [place] [address] Differential cell count method Nom (Bld) Auto Normal [facility] Comment on above: Order Comment: Speci men Type: BLOOD SPECIMEN Ordering Facility: [facility] Address: [address] [place] [address] Performed By: #### 5 7021-8 #### [facility] CLIA [id number] [address] [place] [address] Eosinophils (Bld) [#/Vol] 0.12 10*3/uL Normal <0.46 [facility] Comment on above: Order Comment: Speci men Type: BLOOD SPECIMEN Ordering Facility: [facility] Address: [address] [place] [address] Performed By: #### 5 7021-8 #### [facility] CLIA [id number] [address] [place] [address] Eosinophils/100 WBC (Bld) 1.6 % Normal [facility] Comment on above: Order Comment: Speci men Type: BLOOD SPECIMEN Ordering Facility: [facility] Address: [address] [address] Performed By: #### 5 7021-8 #### [facility] CLIA [id number] [address] [place] [address] Erythrocyte distribution width (RBC) [Ratio] 14.0 % Normal 11.5-15.0 [facility] Comment on above: Order Comment: Speci men Type: BLOOD SPECIMEN Ordering Facility: [facility] Address: [address] [address] Performed By: #### 5 7021-8 #### [facility] CLIA [id number] [address] [place] [address] Hematocrit (Bld) [Volume fraction] 41.4 % Normal 36.0-46.0 [facility] Comment on above: Order Comment: Speci men Type: BLOOD SPECIMEN Ordering Facility: [facility] Address: [address] [address] Performed By: #### 5 7021-8 #### [facility] CLIA [id number] [address] [place] [address] Hemoglobin (Bld) [Mass/Vol] 13.6 g/dL Normal 11.5-15.5 [facility] Comment on above: Order Comment: Speci men Type: BLOOD SPECIMEN Ordering Facility: [facility] Address: [address] [address] Performed By: #### 5 7021-8 #### [facility] CLIA [id number] [address] [place] [address] Immature granulocytes (Bld) [#/Vol] 0.03 10*3/uL Normal <0.10 [facility] Comment on above: Order Comment: Speci men Type: BLOOD SPECIMEN Ordering Facility: [facility] Address: [address] [address] Performed By: #### 5 7021-8 #### [facility] CLIA [id number] [address] [place] [address] Immature granulocytes/100 WBC (Bld) 0.4 % Normal [facility] Comment on above: Order Comment: Speci men Type: BLOOD SPECIMEN Ordering Facility: [facility] Address: [address] [address] Performed By: #### 5 7021-8 #### [facility] CLIA [id number] [address] [place] [address] Lymphocytes (Bld) [#/Vol] 1.84 10*3/uL Normal 1.00-4.00 [facility] Comment on above: Order Comment: Speci men Type: BLOOD SPECIMEN Ordering Facility: [facility] Address: [address] [address] Performed By: #### 5 7021-8 #### [facility] CLIA [id number] [address] [place] [address] Lymphocytes/100 WBC (Bld) 24.6 % Normal [facility] Comment on above: Order Comment: Speci men Type: BLOOD SPECIMEN Ordering Facility: [facility] Address: [address] [address] Performed By: #### 5 7021-8 #### [facility] CLIA [id number] [address] [place] [address] MCH (RBC) [Entitic mass] 38.1 pg High 26.0-34.0 [facility] Comment on above: Order Comment: Speci men Type: BLOOD SPECIMEN Ordering Facility: [facility] Address: [address] [address] Performed By: #### 5 7021-8 #### [facility] CLIA [id number] [address] [place] [address] MCHC (RBC) [Mass/Vol] 32.9 g/dL Normal 30.5-36.0 [facility] Comment on above: Order Comment: Speci men Type: BLOOD SPECIMEN Ordering Facility: [facility] Address: [address] [place] [address] Performed By: #### 5 7021-8 #### [facility] CLIA [id number] [address] [place] [address] MCV (RBC) [Entitic vol] 116.0 fL High 80.0-100.0 [facility] Comment on above: Order Comment: Speci men Type: BLOOD SPECIMEN Ordering Facility: [facility] Address: [address] [place] [address] Performed By: #### 5 7021-8 #### [facility] CLIA [id number] [address] [place] [address] Monocytes (Bld) [#/Vol] 0.64 10*3/uL Normal <0.87 [facility] Comment on above: Order Comment: Speci men Type: BLOOD SPECIMEN Ordering Facility: [facility] Address: [address] [place] [address] Performed By: #### 5 7021-8 #### [facility] CLIA [id number] [address] [place] [address] Monocytes/100 WBC (Bld) 8.6 % Normal [facility] Comment on above: Order Comment: Speci men Type: BLOOD SPECIMEN Ordering Facility: [facility] Address: [address] [place] [address] Performed By: #### 5 7021-8 #### [facility] CLIA [id number] [address] [place] [address] Neutrophils (Bld) [#/Vol] 4.77 10*3/uL Normal 1.45-7.50 [facility] Comment on above: Order Comment: Speci men Type: BLOOD SPECIMEN Ordering Facility: [facility] Address: [address] [place] [address] Performed By: #### 5 7021-8 #### [facility] CLIA [id number] [address] [place] [address] Neutrophils/100 WBC (Bld) 63.9 % Normal [facility] Comment on above: Order Comment: Speci men Type: BLOOD SPECIMEN Ordering Facility: [facility] Address: [address] [address] Performed By: #### 5 7021-8 #### [facility] CLIA [id number] [address] [place] [address] Nucleated RBC (Bld) [#/Vol] 10*3/uL Normal <0.01 [facility] Comment on above: Order Comment: Speci men Type: BLOOD SPECIMEN Ordering Facility: [facility] Address: [address] [address] Performed By: #### 5 7021-8 #### [facility] CLIA [id number] [address] [place] [address] Nucleated RBC/100 WBC (Bld) [Ratio] 0.0 /100 WBC Normal [facility] Comment on above: Order Comment: Speci men Type: BLOOD SPECIMEN Ordering Facility: [facility] Address: [address] [address] Performed By: #### 5 7021-8 #### [facility] CLIA [id number] [address] [place] [address] Platelet mean volume (Bld) [Entitic vol] 9.8 fL Normal 9.0-12.7 [facility] Comment on above: Order Comment: Speci men Type: BLOOD SPECIMEN Ordering Facility: [facility] Address: [address] [address] Performed By: #### 5 7021-8 #### [facility] CLIA [id number] [address] [place] [address] Platelets (Bld) [#/Vol] 591 10*3/uL High 150-400 [facility] Comment on above: Order Comment: Speci men Type: BLOOD SPECIMEN Ordering Facility: [facility] Address: [address] [address] Performed By: #### 5 7021-8 #### [facility] CLIA [id number] [address] [place] [address] RBC (Bld) [#/Vol] 3.57 10*6/uL Low 3.90-5.[address] [facility] Comment on above: Order Comment: Speci men Type: BLOOD SPECIMEN Ordering Facility: [facility] Address: [address] [place] [address] Performed By: #### 5 7021-8 #### [facility] CLIA [id number] [address] [place] [address] WBC (Bld) [#/Vol] 7.47 10*3/uL Normal 3.70-11.[address] [facility] Comment on above: Order Comment: Speci men Type: BLOOD SPECIMEN Ordering Facility: [facility] Address: [address] [place] [address] Performed By: #### 5 7021-8 #### [facility] CLIA [id number] [address] [place] [address] [facility] Visit ([place]) JOSEFA CASTILLO ([id number]) 1940 F Date Time Provider Department 07/29/23 [...] Kiera Rey Ma Referring Provider: ROD ROMAN [[id number]] Allergies As of Date: 07/29/2023 Noted Allergy [...] vitamin B12 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] Order(s):BCN NURSING COMMUNICATION [[id number]] Order #: [id number]: 1 STANDING BCN NURSING COMMUNICATION [[id number]] Order #: [id number]: 1 STANDING BCN NURSING COMMUNICATION [[id number]] Order #: [id number]: 1 STANDING BCN NURSING COMMUNICATION [[id number]] Order #: [id number]: 1 STANDING BCN NURSING COMMUNICATION [[id number]] Order #: [id number]: 1 STANDING [] cyanocobalamin 1,000 mcg injectionDisp: [...] documented on DEC per provider order. Kiera Krissy Martha Prescriptions ordered this encounter Disp Refills Start End CYANOCOBALAMIN ( (more content not included)... Normal [facility]on 07-29-2023 [facility] Visit (SP) Office ([place]) JOSEFA CASTILLO ([id number]) 1940 F Date Time Provider Department 07/29/23 10:15 AM ROD ROMAN During your visit today, we recorded the following information about you: Temperature Pulse Respiration Blood pressure 97.3 degrees 63/minute 16/minute 175/71 Weight 57 kg Rod Roman MD 08/01/2023 3:49 PM Signed NAME: JonathanHardyJosefa CLINIC NO.: [id number] DATE OF SERVICE: July 29, 2023 (Carlos) Some elements in this clinic note that are critical to medical decision making have been carefully reviewed and included from a prior clinic note dated: April 08, 2023 (Carlos) Referring Provider: Tito Hillman MD Additional Clinicians involved in Josefa Jonathan's care: CC: Follow up ASSESSMENT: 1. ET: 83 year old woman with essential thrombocythemia. She has been treated with Hydrea since 2001 when she suffered a mini-stroke and was 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 She has been on various dosing through [...] month 3. Basal cell ca of right hoahaoism April 2023 PLAN: Labs to include B12 in 8 weeks. Labs every 8 weeks, CBC, CMP Continue current regimen of Hydrea 500 mg daily Wednesday - Wednesday but increase to 2 tablets (1000 mg) on Saturdays and Sundays) B12 Shot today and every 8 weeks. RTC in 16 weeks HPI: Updated Visit, July 29, 2023: Right hoahaoism was not a melanoma - basal cell. Labs reviewed and adjusted hydrea on weekends Otherwise is doing very well. Updated Visit, April 08, 2023: Says she's not doing well. Difficulty with vision Need records from right hoahaoism melanoma. Continues B12 shots every 8 weeks [...] the left side of head over the hoahaoism and into the jaw. No vision changes associated with pain. Intermittent and dull and pounding. Right hoahaoism at the corner of her eye lid [...] with hydrea (more content not included)... Normal [facility] Comprehensive metabolic 2000 panelon 07-29-2023 Albumin [Mass/Vol] 4.4 g/dL Normal 3.9-4.9 [facility] Comment on above: Order Comment: Speci men Type: BLOOD SPECIMEN Ordering Facility: [facility] Address: [address] [address] Performed By: #### 2 4323-8, 2532-0 #### [facility] CLIA [id number] [address] [place] [address] 58581 ALP [Catalytic activity/Vol] 60 U/L Normal 34-123 [facility] Comment on above: Order Comment: Speci men Type: BLOOD SPECIMEN Ordering Facility: [facility] Address: [address] [address] Performed By: #### 2 3-8, 2531-0 #### [facility] CLIA [id number] [address] [place] [address] 19552 ALT [Catalytic activity/Vol] 11 U/L Normal 7-38 [facility] Comment on above: Order Comment: Speci men Type: BLOOD SPECIMEN Ordering Facility: [facility] Address: [address] [address] Performed By: #### 2 8, 2531-0 #### [facility] CLIA [id number] [address] [place] [address] 24924 Anion gap [Moles/Vol] 9 mmol/L Normal 9-18 [facility] Comment on above: Order Comment: Speci men Type: BLOOD SPECIMEN Ordering Facility: [facility] Address: [address] [address] Performed By: #### 2 8, 2531-0 #### [facility] CLIA [id number] [address] [place] [address] 19860 AST [Catalytic activity/Vol] 16 U/L Normal 13-35 [facility] Comment on above: Order Comment: Speci men Type: BLOOD SPECIMEN Ordering Facility: [facility] Address: [address] Performed By: #### 2 8, 2531-0 #### [facility] CLIA [id number] [address] [place] [address] 23123 Bilirubin [Mass/Vol] 0.5 mg/dL Normal 0.2-1.3 [facility] Comment on above: Order Comment: Speci men Type: BLOOD SPECIMEN Ordering Facility: [facility] Address: [address] [address] Performed By: #### 2 8, 2532-0 #### [facility] CLIA [id number] [address] [place] [address] Calcium [Mass/Vol] 9.4 mg/dL Normal 8.5-10.2 [facility] Comment on above: Order Comment: Speci men Type: BLOOD SPECIMEN Ordering Facility: [facility] Address: [address] [place] [address] Performed By: #### 2 43238, 2531-0 #### [facility] CLIA [id number] [address] [place] [address] 89174 Chloride [Moles/Vol] 104 mmol/L Normal 97-105 [facility] Comment on above: Order Comment: Speci men Type: BLOOD SPECIMEN Ordering Facility: [facility] Address: [address] [place] [address] Performed By: #### 2 4328, 2531-0 #### [facility] CLIA [id number] [address] [place] [address] 15155 CO2 [Moles/Vol] 27 mmol/L Normal 22-30 [facility] Comment on above: Order Comment: Speci men Type: BLOOD SPECIMEN Ordering Facility: [facility] Address: [address] [place] [address] Performed By: #### 2 43238, 2531-0 #### [facility] CLIA [id number] [address] [place] [address] 84186 Creatinine [Mass/Vol] 1.24 mg/dL High 0.58-0.96 [facility] Comment on above: Order Comment: Speci men Type: BLOOD SPECIMEN Ordering Facility: [facility] Address: [address] [place] [address] Performed By: #### 2 4323-8, 2531-0 #### [facility] CLIA [id number] [address] [place] [address] 79715 Creatinine and Glomerular filtration rate.predicted panel (S/P/Bld) 43 mL/min/1.73m??? Low >=60 [facility] Comment on above: Order Comment: Quincy pires Type: BLOOD SPECIMEN Ordering Facility: [facility] Address: [address] [id number] Result Comment: Esmer mated Glomerular Filtration Rate [...] actual GFR. Performed By: #### 2 4323-8, 2532-0 #### [facility] CLIA [id number] [address] [place] [address] 87025 Glucose [Mass/Vol] 114 mg/dL High 74-99 [facility] Comment on above: Order Comment: Quincy pires Type: BLOOD SPECIMEN Ordering Facility: [facility] Address: [address] Result Comment: The [place] [employer] (ADA) [...] 2016.39(Suppl 1). Performed By: #### 2 4323-8, 2532-0 #### [facility] CLIA [id number] [address] [place] [address] 42825 Potassium [Moles/Vol] 5.0 mmol/L Normal 3.7-5.1 [facility] Comment on above: Order Comment: Quincy pires Type: BLOOD SPECIMEN Ordering Facility: [facility] Address: [address], [place] [address] Performed By: #### 2 4323-8, 2532-0 #### [facility] CLIA [id number] [address] [place] [address] 08615 Protein [Mass/Vol] 6.4 g/dL Normal 6.3-8.0 [facility] Comment on above: Order Comment: Speci men Type: BLOOD SPECIMEN Ordering Facility: [facility] Address: [address] [place] [address] Performed By: #### 2 4323-8, 2532-0 #### [facility] CLIA [id number] [address] [place] [address] 39077 Sodium [Moles/Vol] 140 mmol/L Normal 136-144 [facility] Comment on above: Order Comment: Kikai pranay Type: BLOOD SPECIMEN Ordering Facility: [facility] Address: [address] [place] [address] Performed By: #### 2 4323-8, 2531-0 #### [facility] CLIA [id number] [address] [place] [address] 50866 Urea nitrogen [Mass/Vol] 18 mg/dL Normal 7-21 [facility] Comment on above: Order Comment: Kikai men Type: BLOOD SPECIMEN Ordering Facility: [facility] Address: [address] [place] [address] Performed By: #### 2 4323-8, 2531-0 #### [facility] CLIA [id number] [address] [place] [address] 95511 LDH SerPl-cCncon 07-29-2023 LDH [Catalytic activity/Vol] 211 U/L Normal 135-214 [facility] Comment on above: Order Comment: Speci men Type: BLOOD SPECIMEN Ordering Facility: [facility] Address: [address] [place] [address] Result Comment: Hemo lysis present. The origin [...] Performed By: #### 2 4323-8, 2532-0 #### [facility] CLIA [id number] [address] [place] [address] 11794 CBC W Auto Differential pane l (Bld)on 04-08-2023 Basophils (Bld) [#/Vol] 0.05 10*3/uL Normal <0.11 [facility] Comment on above: Order Comment: Speci men Type: BLOOD SPECIMEN Ordering Facility: [facility] Address: [address] [address] Performed By: #### 5 7021-8 #### [facility] CLIA [id number] [address] [place] [address] 31277 Basophils/100 WBC (Bld) 0.7 % Normal [facility] Comment on above: Order Comment: Speci men Type: BLOOD SPECIMEN Ordering Facility: [facility] Address: [address] [address] Performed By: #### 5 7021-8 #### [facility] CLIA [id number] [address] [place] [address] 35342 Differential cell count method Nom (Bld) Auto Normal [facility] Comment on above: Order Comment: Speci men Type: BLOOD SPECIMEN Ordering Facility: [facility] Address: [address] [address] Performed By: #### 5 7021-8 #### [facility] CLIA [id number] [address] [place] [address] 83733 Eosinophils (Bld) [#/Vol] 0.10 10*3/uL Normal <0.46 [facility] Comment on above: Order Comment: Speci men Type: BLOOD SPECIMEN Ordering Facility: [facility] Address: [address] [address] Performed By: #### 5 7021-8 #### [facility] CLIA [id number] [address] [place] [address] 27279 Eosinophils/100 WBC (Bld) 1.5 % Normal [facility] Comment on above: Order Comment: Speci men Type: BLOOD SPECIMEN Ordering Facility: [facility] Address: [address] [address] Performed By: #### 5 7021-8 #### [facility] CLIA [id number] [address] [place] [address] 14582 Erythrocyte distribution width (RBC) [Ratio] 13.5 % Normal 11.5-15.0 [facility] Comment on above: Order Comment: Speci men Type: BLOOD SPECIMEN Ordering Facility: [facility] Address: [address] [address] Performed By: #### 5 7021-8 #### [facility] CLIA [id number] [address] [place] [address] 60668 Hematocrit (Bld) [Volume fraction] 40.3 % Normal 36.0-46.0 [facility] Comment on above: Order Comment: Speci men Type: BLOOD SPECIMEN Ordering Facility: [facility] Address: [address] [address] Performed By: #### 5 7021-8 #### [facility] CLIA [id number] [address] [place] [address] 63493 Hemoglobin (Bld) [Mass/Vol] 13.4 g/dL Normal 11.5-15.5 [facility] Comment on above: Order Comment: Speci men Type: BLOOD SPECIMEN Ordering Facility: [facility] Address: [address] [address] Performed By: #### 5 7021-8 #### [facility] CLIA [id number] [address] [place] [address] 09495 Immature granulocytes (Bld) [#/Vol] 10*3/uL Normal <0.10 [facility] Comment on above: Order Comment: Speci men Type: BLOOD SPECIMEN Ordering Facility: [facility] Address: [address] [place] [address] Performed By: #### 5 7021-8 #### [facility] CLIA [id number] [address] [place] [address] 84501 Immature granulocytes/100 WBC (Bld) 0.3 % Normal [facility] Comment on above: Order Comment: Speci men Type: BLOOD SPECIMEN Ordering Facility: [facility] Address: [address] [place] [address] Performed By: #### 5 7021-8 #### [facility] CLIA [id number] [address] [place] [address] 66106 Lymphocytes (Bld) [#/Vol] 1.82 10*3/uL Normal 1.00-4.00 [facility] Comment on above: Order Comment: Speci men Type: BLOOD SPECIMEN Ordering Facility: [facility] Address: [address] [place] [address] Performed By: #### 5 7021-8 #### [facility] CLIA [id number] [address] [place] [address] 94231 Lymphocytes/100 WBC (Bld) 26.7 % Normal [facility] Comment on above: Order Comment: Speci men Type: BLOOD SPECIMEN Ordering Facility: [facility] Address: [address] [place] [address] Performed By: #### 5 7021-8 #### [facility] CLIA [id number] [address] [place] [address] 35503 MCH (RBC) [Entitic mass] 40.1 pg High 26.0-34.0 [facility] Comment on above: Order Comment: Speci men Type: BLOOD SPECIMEN Ordering Facility: [facility] Address: [address] [place] [address] Performed By: #### 5 7021-8 #### [facility] CLIA [id number] [address] [place] [address] 10506 MCHC (RBC) [Mass/Vol] 33.3 g/dL Normal 30.5-36.0 [facility] Comment on above: Order Comment: Speci men Type: BLOOD SPECIMEN Ordering Facility: [facility] Address: [address] [address] Performed By: #### 5 7021-8 #### [facility] CLIA [id number] [address] [place] [address] 67286 MCV (RBC) [Entitic vol] 120.7 fL High 80.0-100.0 [facility] Comment on above: Order Comment: Speci men Type: BLOOD SPECIMEN Ordering Facility: [facility] Address: [address] [address] Performed By: #### 5 7021-8 #### [facility] CLIA [id number] [address] [place] [address] 70062 Monocytes (Bld) [#/Vol] 0.56 10*3/uL Normal <0.87 [facility] Comment on above: Order Comment: Speci men Type: BLOOD SPECIMEN Ordering Facility: [facility] Address: [address] [address] Performed By: #### 5 7021-8 #### [facility] CLIA [id number] [address] [place] [address] 82134 Monocytes/100 WBC (Bld) 8.2 % Normal [facility] Comment on above: Order Comment: Speci men Type: BLOOD SPECIMEN Ordering Facility: [facility] Address: [address] [address] Performed By: #### 5 7021-8 #### [facility] CLIA [id number] [address] [place] [address] 93708 Neutrophils (Bld) [#/Vol] 4.27 10*3/uL Normal 1.45-7.50 [facility] Comment on above: Order Comment: Speci men Type: BLOOD SPECIMEN Ordering Facility: [facility] Address: [address] [address] Performed By: #### 5 7021-8 #### [facility] CLIA [id number] [address] [place] [address] Neutrophils/100 WBC (Bld) 62.6 % Normal [facility] Comment on above: Order Comment: Speci men Type: BLOOD SPECIMEN Ordering Facility: [facility] Address: [address] Performed By: #### 5 7021-8 #### [facility] CLIA [id number] [address] [place] [address] 28970 Nucleated RBC (Bld) [#/Vol] 10*3/uL Normal <0.01 [facility] Comment on above: Order Comment: Speci men Type: BLOOD SPECIMEN Ordering Facility: [facility] Address: [address] [address] Performed By: #### 5 7021-8 #### [facility] CLIA [id number] [address] [place] [address] 95612 Nucleated RBC/100 WBC (Bld) [Ratio] 0.0 /100 WBC Normal [facility] Comment on above: Order Comment: Speci men Type: BLOOD SPECIMEN Ordering Facility: [facility] Address: [address] Performed By: #### 5 7021-8 #### [facility] CLIA [id number] [address] [place] [address] 79798 Platelet mean volume (Bld) [Entitic vol] 9.9 fL Normal 9.0-12.7 [facility] Comment on above: Order Comment: Speci men Type: BLOOD SPECIMEN Ordering Facility: [facility] Address: [address] Performed By: #### 5 7021-8 #### [facility] CLIA [id number] [address] [place] [address] 07787 Platelets (Bld) [#/Vol] 580 10*3/uL High 150-400 [facility] Comment on above: Order Comment: Speci men Type: BLOOD SPECIMEN Ordering Facility: [facility] Address: [address] Performed By: #### 5 7021-8 #### [facility] CLIA [id number] [address] [place] [address] RBC (Bld) [#/Vol] 3.34 10*6/uL Low 3.90-5.[address] [facility] Comment on above: Order Comment: Speci men Type: BLOOD SPECIMEN Ordering Facility: [facility] Address: [address] [place], [place] [address] Performed By: #### 5 7021-8 #### [facility] CLIA [id number] [address] [place] [address] WBC (Bld) [#/Vol] 6.82 10*3/uL Normal 3.70-11.[address] [facility] Comment on above: Order Comment: Speci men Type: BLOOD SPECIMEN Ordering Facility: [facility] Address: [address] [place], [place] [id number] Performed By: #### 5 7021-8 #### [facility] CLIA [id number] [address] [place] [address] CNNURSEon 04-08-2023 CNNURSE Nurse Visit (HEMASA) JOSEFA CASTILLO ([id number]) 1940 F Date Time Provider Department 04/08/23 10:30 AM MARTHA NURSE AYAKA DENT During your visit today, we recorded the following information about you: Janeth Bright MA 04/08/2023 11:15 AM Signed Patient Identification confirmed: yes. Injection given and documented on DEC per provider order. Janeth Bright MA Referring Provider: ROD ROMAN [[id number]] Allergies As of Date: 04/08/2023 Noted Allergy [...] vitamin B12 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] Order(s):N NURSING COMMUNICATION [[id number]] Order #: [id number]: 1 STANDING [] cyanocobalamin 1,000 mcg injectionDisp: [...] Encounter Status:Closed by JANETH BRIGHT on 04/08/23 [facility] CNOVSPon 04-08-2023 CNOVSP Visit (SP) Office (HEMASA) JOSEFA CASTILLO ([id number]) 1940 F Date Time Provider Department 04/08/23 10:15 AM ROD ROMAN During your visit today, we recorded the following information about you: Temperature Pulse Respiration Blood pressure 97.8 degrees 77/minute 16/minute 161/74 Weight Height 56.7 kg 1.575 m Rod Roman MD 04/11/2023 2:03 PM Signed NAME: Josefa Castillo CLINIC NO.: [id number] DATE OF SERVICE: April 08, 2023 (Carlos) [...] 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 Continues B12 shots every 8 weeks [...] the left side of head over the hoahaoism and into the jaw. No vision changes associated with pain. Intermittent and dull and pounding. Right hoahaoism at the corner of her eye lid [...] energy. U (more content not included)... Normal [facility] Comprehensive metabolic 2000 panelon 04-08-2023 Albumin [Mass/Vol] 4.4 g/dL Normal 3.9-4.9 [facility] Comment on above: Order Comment: Specmarv pires Type: BLOOD SPECIMEN Ordering Facility: [facility] Address: [address] [place] [address] Performed By: #### 2 43201-06, 0 #### [facility] CLIA [id number] [address] [place] [address] 98712 ALP [Catalytic activity/Vol] 60 U/L Normal 34-123 [facility] Comment on above: Order Comment: Quincy pires Type: BLOOD SPECIMEN Ordering Facility: [facility] Address: [address] [address] Performed By: #### 2 43201-06, #### [facility] CLIA [id number] [address] [place] [address] 11530 ALT [Catalytic activity/Vol] 14 U/L Normal 7-38 [facility] Comment on above: Order Comment: Quincy pires Type: BLOOD SPECIMEN Ordering Facility: [facility] Address: [address] [address] Performed By: #### 2 4328, 0 #### [facility] CLIA [id number] [address] [place] [address] 54489 Anion gap [Moles/Vol] 9 mmol/L Normal 9-18 [facility] Comment on above: Order Comment: Speci men Type: BLOOD SPECIMEN Ordering Facility: [facility] Address: [address] Performed By: #### 2 4328, 2531-0 #### [facility] CLIA [id number] [address] [place] [address] 17218 AST [Catalytic activity/Vol] 21 U/L Normal 13-35 [facility] Comment on above: Order Comment: Speci men Type: BLOOD SPECIMEN Ordering Facility: [facility] Address: [address] Performed By: #### 2 4328, 2531-0 #### [facility] CLIA [id number] [address] [place] [address] 96385 Bilirubin [Mass/Vol] 0.5 mg/dL Normal 0.2-1.3 [facility] Comment on above: Order Comment: Speci men Type: BLOOD SPECIMEN Ordering Facility: [facility] Address: [address] Performed By: #### 2 4328, 2531-0 #### [facility] CLIA [id number] [address] [place] [address] 18255 Calcium [Mass/Vol] 9.5 mg/dL Normal 8.5-10.2 [facility] Comment on above: Order Comment: Speci men Type: BLOOD SPECIMEN Ordering Facility: [facility] Address: [address] Performed By: #### 2 4328, 2531-0 #### [facility] CLIA [id number] [address] [place] [address] 28756 Chloride [Moles/Vol] 102 mmol/L Normal 97-105 [facility] Comment on above: Order Comment: Speci men Type: BLOOD SPECIMEN Ordering Facility: [facility] Address: [address] Performed By: #### 2 4328, 0 #### [facility] CLIA [id number] [address] [place] [address] CO2 [Moles/Vol] 27 mmol/L Normal 22-30 [facility] Comment on above: Order Comment: Speci men Type: BLOOD SPECIMEN Ordering Facility: [facility] Address: [address] [place] [address] Performed By: #### 2 4328, #### [facility] CLIA [id number] [address] [place] [address] 54224 Creatinine [Mass/Vol] 0.88 mg/dL Normal 0.58-0.96 [facility] Comment on above: Order Comment: Speci men Type: BLOOD SPECIMEN Ordering Facility: [facility] Address: [address] [place] [address] Performed By: #### 2 4328, #### [facility] CLIA [id number] [address] [place] [address] 14632 ESTIMATED GLOMERULAR FILTRATION RATE 66 mL/min/1.73m??? Normal >=60 [facility] Comment on above: Order Comment: Speci men Type: BLOOD SPECIMEN Ordering Facility: [facility] Address: [address] [place] [address] Result Comment: Esmer mated Glomerular Filtration Rate [...] reflect actual GFR. Performed By: #### 2 4328, 0 #### [facility] CLIA [id number] [address] [place] [address] 99172 Glucose [Mass/Vol] 106 mg/dL High 74-99 [facility] Comment on above: Order Comment: Speci men Type: BLOOD SPECIMEN Ordering Facility: [facility] Address: [address] [id number] Result Comment: The [place] [employer] (ADA) [...] Performed By: #### 2 4323-8, 2531-0 #### [facility] CLIA [id number] [address] [place] [address] 58107 Potassium [Moles/Vol] 4.3 mmol/L Normal 3.7-5.1 [facility] Comment on above: Order Comment: Speci men Type: BLOOD SPECIMEN Ordering Facility: [facility] Address: [address] Performed By: #### 2 4323-8, 0 #### [facility] CLIA [id number] [address] [place] [address] 54984 Protein [Mass/Vol] 6.7 g/dL Normal 6.3-8.0 [facility] Comment on above: Order Comment: Speci men Type: BLOOD SPECIMEN Ordering Facility: [facility] Address: [address] [id number] Performed By: #### 2 4323-8, 2531-0 #### [facility] CLIA [id number] [address] [place] [address] 13754 Sodium [Moles/Vol] 138 mmol/L Normal 136-144 [facility] Comment on above: Order Comment: Speci men Type: BLOOD SPECIMEN Ordering Facility: [facility] Address: [address] [id number] Performed By: #### 2 4323-8, 2531-0 #### [facility] CLIA [id number] [address] [place] [address] 16270 Urea nitrogen [Mass/Vol] 10 mg/dL Normal 7-21 [facility] Comment on above: Order Comment: Speci men Type: BLOOD SPECIMEN Ordering Facility: [facility] Address: [address] [place] [address] Performed By: #### 2 4323-8, 2531-0 #### [facility] CLIA [id number] [address] [place] [address] LDH SerPl-cCncon 04-08-2023 LDH [Catalytic activity/Vol] 215 U/L High 135-214 [facility] Comment on above: Order Comment: Speci men Type: BLOOD SPECIMEN Ordering Facility: [facility] Address: [address] [place] [address] Result Comment: Hemo lysis present. The origin [...] clinically indicated. Performed By: #### 2 4323-8, 0 #### [facility] CLIA [id number] [address] [place], [place] [id number] Telemedicineon 02-19-2023 Telemedicine [id number] Chloe Castillo 1940 F Date Provider Department Center 02/19/2023 [facility] Family History Problem Relation Age of Onset Breast cancer Mother Diabetes Mother Diabetes Father Family Status - Relation Status Age at Mother Father Level of Service:96609 ME PHYS/QHP TELEPHONE EVALUATION 11-20 MIN Reason for Visit and Comments: Coronary Artery Disease [187] Hypertension [729277] Telehealth Phone Visit [872] Normal [facility] CBC AUTO DIFFon 01-25-2023 BASO # 0.1 103/ul Normal 0.0-0.1 [facility] Comment on above: Performed By: #### C BC #### [facility] [address] [place] [address] Dr. Dianna Alcocer Basophils/100 WBC (Bld) 0.6 % Normal 0.2-2.0 [facility] Comment on above: Performed By: #### C BC #### [facility] [address] [place] [address] Dr. Dianna Alcocer EO # 0.1 103/ul Normal 0.0-0.7 [facility] Comment on above: Performed By: #### C BC #### [facility] [address] [place] [address] Dr. Dianna Alcocer Eosinophils/100 WBC (Bld) 0.7 % Critically low 0.9-7.0 [facility] Comment on above: Performed By: #### C BC #### [facility] [address] [place] [address] Dr. Dianna Alcocer Erythrocyte distribution width (RBC) [Ratio] 13.4 % Normal 11.0-15.0 [facility] Comment on above: Performed By: #### C BC #### [facility] [address] [place] [address] Dr. Dianna Alcocer Hematocrit (Bld) [Volume fraction] 38.9 % Normal 36.0-48.0 [facility] Comment on above: Performed By: #### C BC #### [facility] [address] [place] [address] Dr. Dianna Alcocer Hemoglobin (Bld) [Mass/Vol] 13.2 g/dL Normal 12.0-16.0 [facility] Comment on above: Performed By: #### C BC #### [facility] [address] [place] [address] Dr. Dianna Alcocer IG # 0.03 10e3/ul Normal 0.00-0.03 [facility] Comment on above: Performed By: #### C BC #### [facility] [address] [place] [address] Dr. Dianna Alcocer IG % 0.4 % Normal 0.0-0.5 [facility] Comment on above: Performed By: #### C BC #### [facility] [address] [address] [address] Dianna Alcocer LYMPH # 1.4 103/ul Normal 1.2-3.8 [facility] Comment on above: Performed By: #### C BC #### [facility] [address] [address] [address] Dianna Alcocer Lymphocytes/100 WBC (Bld) 17.0 % Critically low 20.5-60.0 [facility] Comment on above: Performed By: #### C BC #### [facility] [address] [place] [address] Dr. Dianna Alcocer MANUAL DIFF REQ NO Normal [facility] Comment on above: Performed By: #### C BC #### [facility] [address] [place] [address] Dr. Dianna Alcocer MCH (RBC) [Entitic mass] 39.6 pg Critically high 26.7-34.0 [facility] Comment on above: Performed By: #### C BC #### [facility] [address] [place] [address] Dr. Dianna Alcocer MCHC (RBC) [Mass/Vol] 33.9 g/dL Normal 29.9-35.2 [facility] Comment on above: Performed By: #### C BC #### [facility] [address] [place] [address] Dr. Dianna Alcocer MCV (RBC) [Entitic vol] 116.8 fL Critically high 81.0-99.0 [facility] Comment on above: Performed By: #### C BC #### [facility] [address] [place] [address] Dr. Dianna Alcocer MONO # 0.6 103/ul Normal 0.3-0.8 [facility] Comment on above: Performed By: #### C BC #### [facility] [address] [place] [address] Dr. Dianna Alcocer Monocytes/100 WBC (Bld) 7.5 % Normal 1.7-12.0 [facility] Comment on above: Performed By: #### C BC #### [facility] [address] [address] [address] Dianna Alcocer NEUT # 5.9 103/ul Normal 1.4-6.5 [facility] Comment on above: Performed By: #### C BC #### [facility] [address] [address] [address] Dianna Alcocer Neutrophils/100 WBC (Bld) 73.8 % Normal 43.0-75.0 [facility] Comment on above: Performed By: #### C BC #### [facility] [address] [address] [address] Dianna Alcocer Platelet mean volume (Bld) [Entitic vol] 9.9 fL Normal 9.5-13.5 [facility] Comment on above: Performed By: #### C BC #### [facility] [address] [address] [address] Dianna Alcocer PLT 576 103/ul Critically high 150-450 [facility] Comment on above: Performed By: #### C BC #### [facility] [address] [address] [address] Dianna Alcocer RBC 3.33 106/ul Critically low 4.20-5.40 [facility] Comment on above: Performed By: #### C BC #### [facility] [address] [address] [address] Dianna Alcocer WBC 8.0 103/ul Normal 4.0-11.0 [facility] Comment on above: Performed By: #### C BC #### [facility] [address] [address] [address] Dianna Alcocer LIPID PROFILEon 01-25-2023 CHOL-HDL RATIO NORM SEE BELOW Normal [facility] Comment on above: Result Comment: 3.3 - 4.4 LOW RISK 4.4 - 7.1 AVERAGE RISK 7.1 - 11.0 MODERATE RISK >11.0 HIGH RISK Performed By: #### C MADM, BNP, CMP #### [facility] [address] [address] [address] Dianna Alcocer Cholesterol [Mass/Vol] 123 mg/dL Normal <=200 [facility] Comment on above: Performed By: #### C MADM, BNP, CMP #### [facility] [address] [address] [address] Dianna Alcocer Cholesterol in HDL [Mass/Vol] 60 mg/dL Normal 40-60 [facility] Comment on above: Performed By: #### C MADM, BNP, CMP #### [facility] [address] [address] [address] Dianna Alcocer Cholesterol in LDL [Mass/Vol] 50.4 mg/dL Normal [facility] Comment on above: Performed By: #### C MADM, BNP, CMP #### [facility] [address] [address] [address] Dianna Alcocer Cholesterol.total/C holesterol in HDL [Mass ratio] 2.1 {ratio} Normal [facility] Comment on above: Performed By: #### C MADM, BNP, CMP #### [facility] [address] [address] [address] Dianna Alcocer HDL NORMAL > or = 60 mg/dl - LO W CARDIOVASCULAR RISK <40 mg/dl - HIGH CARDIOVASCULAR RISK Normal [facility] Comment on above: Performed By: #### C MADM, BNP, CMP #### [facility] [address] [address] [address] Dianna Alcocer LDL CALC NORMAL SEE BELOW Normal [facility] Comment on above: Result Comment: <100 mg/dl OPTIMAL 100 - 129 mg/dl NEAR OR ABOVE OPTIMAL 130 - 159 mg/dl BORDERLINE HIGH 160 - 189 mg/dl HIGH >190 mg/dl VERY HIGH Performed By: #### C MADM, BNP, CMP #### [facility] [address] [address] [address] Dianna Alcocer Triglyceride [Mass/Vol] 63 mg/dL Normal <=150 [facility] Comment on above: Performed By: #### C MADM, BNP, CMP #### [facility] [address] [address] [address] Dianna Alcocer VLDL CALC 12.6 mg/dL Normal [facility] Comment on above: Performed By: #### C MADM, BNP, CMP #### [facility] [address] [address] [address] Dianna Alcocer LIVER PROFILEon 01-25-2023 Albumin [Mass/Vol] 4.0 g/dL Normal 3.4-5.0 [facility] Comment on above: Performed By: #### C MADM, BNP, CMP #### [facility] [address] [address] [address] Dianna Alcocer Albumin/Globulin [Mass ratio] 1.4 {ratio} Normal [facility] Comment on above: Performed By: #### C MADM, BNP, CMP #### [facility] [address] [address] [address] Dianna Alcocer ALP [Catalytic activity/Vol] 74 U/L Normal 46-116 [facility] Comment on above: Performed By: #### C MADM, BNP, CMP #### [facility] [address] [address] [address] Dianna Alcocer ALT [Catalytic activity/Vol] 21 U/L Normal 14-59 [facility] Comment on above: Performed By: #### C MADM, BNP, CMP #### [facility] [address] [place] [address] Dr. Dianna Alcocer AST [Catalytic activity/Vol] 18 U/L Normal 15-37 [facility] Comment on above: Performed By: #### C MADM, BNP, CMP #### [facility] [address] [address] [address] Dianna Alcocer BILI, CONJUGATED 0.1 mg/dL Normal 0.0-0.2 [facility] Comment on above: Performed By: #### C MADM, BNP, CMP #### [facility] [address] [place] [address] Dr. Dianna Alcocer Bilirubin [Mass/Vol] 0.5 mg/dL Normal 0.2-1.0 [facility] Comment on above: Performed By: #### C MADM, BNP, CMP #### [facility] [address] [place], [place] [id number] Dr. Dianna Alcocer Globulin (S) [Mass/Vol] 2.9 g/dL Normal [facility] Comment on above: Performed By: #### C MADM, BNP, CMP #### [facility] [address] [place] [address] Dr. Dianna Alcocer Protein [Mass/Vol] 6.9 g/dL Normal 6.4-8.2 [facility] Comment on above: Performed By: #### C MADM, BNP, CMP #### [facility] [address] [place] [address] Dr. Dianna Alcocer PROF CHEM 8 (BAS METB)on Anion gap [Moles/Vol] 14.7 mmol/L Normal [facility] Comment on above: Performed By: #### C MADM, BNP, CMP #### [facility] [address] [place] [address] Dr. Dianna Alcocer Calcium [Mass/Vol] 8.9 mg/dL Normal 8.5-10.1 [facility] Comment on above: Performed By: #### C MADM, BNP, CMP #### [facility] [address] [place] [address] Dr. Dianna Alcocer Chloride [Moles/Vol] 103 mmol/L Normal 98-107 [facility] Comment on above: Performed By: #### C MADM, BNP, CMP #### [facility] [address] [place] [address] Dr. Dianna Alcocer CO2 [Moles/Vol] 28.6 mmol/L Normal 21.0-32.0 [facility] Comment on above: Performed By: #### C MADM, BNP, CMP #### [facility] [address] [place] [address] Dr. Dianna Alcocer Creatinine [Mass/Vol] 0.88 mg/dL Normal 0.55-1.02 [facility] Comment on above: Performed By: #### C MADM, BNP, CMP #### [facility] [address] [place] [address] Dr. Dianna Alcocer EGFR-AF IRAQI >60 Normal >=60 [facility] Comment on above: Performed By: #### C MADM, BNP, CMP #### [facility] [address] [place] [address] Dr. Dianna Alcocer EGFR-NON AF IRAQI >60 Normal >=60 [facility] Comment on above: Performed By: #### C MADM, BNP, CMP #### [facility] [address] [place] [address] Dr. Dianna Alcocer Glucose [Mass/Vol] 110 mg/dL Critically high 74-106 [facility] Comment on above: Performed By: #### C MADM, BNP, CMP #### [facility] [address] [place] [address] Dr. Dianna Alcocer Potassium [Moles/Vol] 4.3 mmol/L Normal 3.5-5.1 [facility] Comment on above: Performed By: #### C MADM, BNP, CMP #### [facility] [address] [place] [address] Dr. Dianna Alcocer Sodium [Moles/Vol] 142 mmol/L Normal 136-145 [facility] Comment on above: Performed By: #### C MADM, BNP, CMP #### [facility] [address] [place] [address] Dr. Dianna Alcocer Urea nitrogen [Mass/Vol] 11.0 mg/dL Normal 7.0-18.0 [facility] Comment on above: Performed By: #### C MADM, BNP, CMP #### [facility] [address] [place] [address] Dr. Dianna Alcocer Urea nitrogen/Creatinine [Mass ratio] 12.5 mg/mg Normal [facility] Comment on above: Performed By: #### C MADM, BNP, CMP #### [facility] [address] [place] [address] Dr. Dianna Alcocer BNPon 08-24-2022 Natriuretic peptide B (Bld) [Mass/Vol] 469.0 pg/mL Normal <=1,800.0 [facility] Comment on above: Performed By: #### C MADM, BNP, CMP #### [facility] [address] [address] [address] Dianna Alcocer CARDIAC KEMAR ADMITon 022 CK [Catalytic activity/Vol] 145 U/L Normal 26-192 [facility] Comment on above: Performed By: #### C MADM, BNP, CMP #### [facility] [address] [place] [address] Dr. Dianna Alcocer CK.MB [Mass/Vol] 3.17 ng/mL Normal <=3.60 [facility] Comment on above: Performed By: #### C MADM, BNP, CMP #### [facility] [address] [place] [address] Dr. Dianna Alcocer HSTROP 8.4 pg/mL Normal 4.0-51.3 [facility] Comment on above: Result Comment: CUT- OFF POINTS HAVE BEEN ESTABLISHED BASED ON THE FOURTH UNIVERSAL DEFINITIONS OF MYOCARDIAL INFARCTION. THE UPPER REFERENCE LIMIT (URL) OF TROPONIN, DEFINED THE 99TH PERCENTILE OF cTnI DISTRIBUTION IN A REFERENCE POPULATION, HAS BEEN CONFIRMED THE DECISION THRESHOLD FOR CA DIAGNOSIS. Performed By: #### C MADM, BNP, CMP #### [facility] [address] [place] [address] Dr. Dianna Alcocer BOB 155 ng/mL Critically high 9-82 [facility] Comment on above: Performed By: #### C MADM, BNP, CMP #### [facility] [address] [place] [address] Dr. Dianna Alcocer CBC AUTO DIFFon 08-24-2022 BASO # 0.1 103/ul Normal 0.0-0.1 [facility] Comment on above: Performed By: #### C BC #### [facility] [address] [place] [address] Dr. Dianna Alcocer Basophils/100 WBC (Bld) 1.6 % Normal 0.2-2.0 [facility] Comment on above: Performed By: #### C BC #### [facility] [address] [place] [address] Dr. Dianna Alcocer EO # 0.1 103/ul Normal 0.0-0.7 [facility] Comment on above: Performed By: #### C BC #### [facility] [address] [place] [address] Dr. Dianna Alcocer Eosinophils/100 WBC (Bld) 1.6 % Normal 0.9-7.0 [facility] Comment on above: Performed By: #### C BC #### [facility] [address] [place] [address] Dr. Dianna Alcocer Erythrocyte distribution width (RBC) [Ratio] 13.1 % Normal 11.0-15.0 [facility] Comment on above: Performed By: #### C BC #### [facility] [address] [place] [address] Dr. Dianna Alcocer Hematocrit (Bld) [Volume fraction] 38.6 % Normal 36.0-48.0 [facility] Comment on above: Performed By: #### C BC #### [facility] [address] [place] [address] Dr. Dianna Alcocer Hemoglobin (Bld) [Mass/Vol] 13.2 g/dL Normal 12.0-16.0 [facility] Comment on above: Performed By: #### C BC #### [facility] [address] [place] [address] Dr. Dianna Alcocer IG # 0.01 10e3/ul Normal 0.00-0.03 [facility] Comment on above: Performed By: #### C BC #### [facility] [address] [place] [address] Dr. Dianna Alcocer IG % 0.2 % Normal 0.0-0.5 [facility] Comment on above: Performed By: #### C BC #### [facility] [address] [place] [address] Dr. Dianna Alcocer LYMPH # 1.7 103/ul Normal 1.2-3.8 [facility] Comment on above: Performed By: #### C BC #### [facility] [address] [place] [address] Dr. Dianna Alcocer Lymphocytes/100 WBC (Bld) 39.3 % Normal 20.5-60.0 [facility] Comment on above: Performed By: #### C BC #### [facility] [address] [place] [address] Dr. Dianna Alcocer MANUAL DIFF REQ NO Normal [facility] Comment on above: Performed By: #### C BC #### [facility] [address] [place] [address] Dr. Dianna Alcocer MCH (RBC) [Entitic mass] 41.4 pg Critically high 26.7-34.0 [facility] Comment on above: Performed By: #### C BC #### [facility] [address] [place] [address] Dr. Dianna Alcocer MCHC (RBC) [Mass/Vol] 34.2 g/dL Normal 29.9-35.2 [facility] Comment on above: Performed By: #### C BC #### [facility] [address] [place] [address] Dr. Dianna Alcocer MCV (RBC) [Entitic vol] 121.0 fL Critically high 81.0-99.0 [facility] Comment on above: Performed By: #### C BC #### [facility] [address] [place] [address] Dr. Dianna Alcocer MONO # 0.5 103/ul Normal 0.3-0.8 [facility] Comment on above: Performed By: #### C BC #### [facility] [address] [place] [address] Dr. Dianna Alcocer Monocytes/100 WBC (Bld) 12.0 % Normal 1.7-12.0 [facility] Comment on above: Performed By: #### C BC #### [facility] [address] [place] [address] Dr. Dianna Alcocer NEUT # 2.0 103/ul Normal 1.4-6.5 [facility] Comment on above: Performed By: #### C BC #### [facility] [address] [place] [address] Dr. Dianna Alcocer Neutrophils/100 WBC (Bld) 45.3 % Normal 43.0-75.0 [facility] Comment on above: Performed By: #### C BC #### [facility] [address] [address] [address] Dianna Alcocer Platelet mean volume (Bld) [Entitic vol] 10.0 fL Normal 9.5-13.5 [facility] Comment on above: Performed By: #### C BC #### [facility] [address] [address] [address] Dianna Alcocer PLT 228 103/ul Normal 150-450 [facility] Comment on above: Performed By: #### C BC #### [facility] [address] [address] [address] Dianna Alcocer RBC 3.19 106/ul Critically low 4.20-5.40 [facility] Comment on above: Performed By: #### C BC #### [facility] [address] [place] [address] Dr. Dianna Alcocer WBC 4.3 103/ul Normal 4.0-11.0 [facility] Comment on above: Performed By: #### C BC #### [facility] [address] [place] [address] Dr. Dianna Alcocer CULTURE URINEon 08-24-2022 CULTURE URINE Culture Observations : LIGHT GROWTH OF MIXED GENITAL SATHYA. NO POTENTIAL PATHOGENS SEEN. Normal [facility] Comment on above: Performed By: #### C MADM, BNP, CMP #### [facility] [address] [place] [address] Dr. Dianna Alcocer DRUG SCREEN RAPID (URINE)on 08-24-2022 AMP Negative Normal NEGATIVE [facility] Comment on above: Performed By: #### D EDEN CARRASQUILLO, ERUR #### [facility] [address] [place] [address] Dr. Dianna Alcocer BAR Negative Normal NEGATIVE [facility] Comment on above: Performed By: #### D EDEN CARRASQUILLO, ERUR #### [facility] [address] [place] [address] Dr. Dianna Alcocer BUP Negative Normal NEGATIVE [facility] Comment on above: Performed By: #### D EDEN CARRASQUILLO, ERUR #### [facility] [address] [address] [address] Dianna Alcocer BZO Negative Normal NEGATIVE [facility] Comment on above: Performed By: #### D EDEN CARRASQUILLO, ERUR #### [facility] [address] [address] [address] Dianna Alcocer HASMUKH Negative Normal NEGATIVE [facility] Comment on above: Performed By: #### D EDEN CARRASQUILLO, ERUR #### [facility] [address] [address] [address] Dianna Alcocer CUT-OFFS SEE BELOW Normal [facility] Comment on above: Result Comment: AMP [...] By: #### D EDEN CARRASQUILLO, ERUR #### [facility] [address] [place] [address] Dr. Dianna Alcocer DRUG CUT HEADER DRUG CLASS TEST SYST EM CUT-OFF CONCENTRATIONS ARE FOLLOWS: Normal [facility] Comment on above: Performed By: #### D EDEN CARRASQUILLO, ERUR #### [facility] [address] [place] [address] Dr. Dianna Alcocer mAMP Negative Normal NEGATIVE [facility] Comment on above: Performed By: #### D EDEN CARRASQUILLO, ERUR #### [facility] [address] [place] [address] Dr. Dianna Alcocer MTD Negative Normal NEGATIVE [facility] Comment on above: Performed By: #### D EDEN CARRASQUILLO, ERUR #### [facility] [address] [address] [address] Dianna Alcocer OPI Positive Abnormal NEGATIVE [facility] Comment on above: Performed By: #### D EDEN CARRASQUILLO, ERUR #### [facility] [address] [address] [address] Dianna Alcocer OXY Negative Normal NEGATIVE [facility] Comment on above: Performed By: #### D EDEN CARRASQUILLO, ERUR #### [facility] [address] [address] [address] Dianna Alcocer PCP Negative Normal NEGATIVE [facility] Comment on above: Performed By: #### D EDEN CARRASQUILLO, ERUR #### [facility] [address] [address] [address] Dianna Alcocer PPX Negative Normal NEGATIVE [facility] Comment on above: Performed By: #### D EDEN CARRASQUILLO, ERUR #### [facility] [address] [address] [address] Dianna Alcocer TCA Negative Normal NEGATIVE [facility] Comment on above: Performed By: #### D EDEN CARRASQUILLO, ERUR #### [facility] [address] [address] [address] Dianna Alcocer THC Negative Normal NEGATIVE [facility] Comment on above: Performed By: #### D EDEN CARRASQUILLO, ERUR #### [facility] [address] [address] [address] Dianna Alcocer ER URINE PROFILEon 2 Bilirubin Ql (U) Negative Normal NEGATIVE [facility] Comment on above: Performed By: #### D JUNAID CARRASQUILLORO, ERUR #### [facility] [address] [address] [address] Dianna Alcocer Clarity (U) CLEAR Normal CLEAR [facility] Comment on above: Performed By: #### D EDEN CARRASQUILLO, ERUR #### [facility] [address] [address] [address] Dianna Alcocer Color (U) LT. YELLOW Normal YELLOW [facility] Comment on above: Performed By: #### D EDEN CARRASQUILLO, ERUR #### [facility] [address] [address] [address] Dianna EDMONDSON A micrscopic examination will be performed if indicated. Normal [facility] Comment on above: Performed By: #### D JUNAID CARRASQUILLORO, ERUR #### [facility] [address] [address] [address] Dianna Alcocer Glucose Ql (U) Negative Normal NEGATIVE [facility] Comment on above: Performed By: #### D EDEN CARRASQUILLO, ERUR #### [facility] [address] [address] [address] Dianna Alcocer Hemoglobin Ql (U) MODERATE Abnormal NEGATIVE [facility] Comment on above: Performed By: #### D EDEN CARRASQUILLO, ERUR #### [facility] [address] [address] [address] Dianna Alcocer Ketones Ql (U) Negative Normal NEGATIVE [facility] Comment on above: Performed By: #### D EDEN CARRASQUILLO, ERUR #### [facility] [address] [address] [address] Dianna Alcocer LEUKOCYTES SMALL Abnormal NEGATIVE [facility] Comment on above: Performed By: #### D JUNAID CARRASQUILLORO, ERUR #### [facility] [address] [address] [address] Dianna Alcocer Nitrite Ql (U) Negative Normal NEGATIVE [facility] Comment on above: Performed By: #### D JUNAID CARRASQUILLORO, ERUR #### [facility] [address] [address] [address] Dianna Alcocer pH (U) 6.0 [pH] Normal 5-9 [facility] Comment on above: Performed By: #### D JUNAID CARRASQUILLORO, ERUR #### [facility] [facility] [address] [address] [address] Dianna Alcocer SPEC GRAVITY 1.020 Normal 1.005-<=1.025 [facility] Comment on above: Performed By: #### D EDEN CARRASQUILLO, ERUR #### [facility] [address] [address] [address] Dianna Alcocer UA PROTEIN Negative Normal NEGATIVE/ TRACE [facility] Comment on above: Performed By: #### D EDEN CARRASQUILLO, ERUR #### [facility] [address] [address] [address] Dianna Alcocer UR MICRO IND INDICATED Normal [facility] Comment on above: Performed By: #### D EDEN CARRASQUILLO, ERUR #### [facility] [address] [address] [address] Dianna Alcocer Urobilinogen Qn (U) 0.2 {Simone'U}/dL Normal 0.2 - 1. 0 [facility] Comment on above: Performed By: #### D EDEN CARRASQUILLO, ERUR #### [facility] [address] [place] [address] Dr. Dianna Alcocer PROF 14(COMP METB)on 022 Albumin [Mass/Vol] 4.0 g/dL Normal 3.4-5.0 [facility] Comment on above: Performed By: #### C MADM, BNP, CMP #### [facility] [address] [place] [address] Dr. Dianna Alcocer Albumin/Globulin [Mass ratio] 1.4 {ratio} Normal [facility] Comment on above: Performed By: #### C MADM, BNP, CMP #### [facility] [address] [place] [address] Dr. Dianna Alcocer ALP [Catalytic activity/Vol] 57 U/L Normal 46-116 [facility] Comment on above: Performed By: #### C MADM, BNP, CMP #### [facility] [address] [place] [address] Dr. Dianna Alcocer ALT [Catalytic activity/Vol] 15 U/L Normal 14-59 [facility] Comment on above: Performed By: #### C MADM, BNP, CMP #### [facility] [address] [place] [address] Dr. Dianna Alcocer Anion gap [Moles/Vol] 11.3 mmol/L Normal [facility] Comment on above: Performed By: #### C MADM, BNP, CMP #### [facility] [address] [place] [address] Dr. Dianna Alcocer AST [Catalytic activity/Vol] 16 U/L Normal 15-37 [facility] Comment on above: Performed By: #### C MADM, BNP, CMP #### [facility] [address] [place] [address] Dr. Dianna Alcocer Bilirubin [Mass/Vol] 0.6 mg/dL Normal 0.2-1.0 [facility] Comment on above: Performed By: #### C MADM, BNP, CMP #### [facility] [address] [place] [address] Dr. Dianna Alcocer Calcium [Mass/Vol] 8.6 mg/dL Normal 8.5-10.1 [facility] Comment on above: Performed By: #### C MADM, BNP, CMP #### [facility] [address] [place] [address] Dr. Dianna Alcocer Chloride [Moles/Vol] 100 mmol/L Normal 98-107 [facility] Comment on above: Performed By: #### C MADM, BNP, CMP #### [facility] [address] [place] [address] Dr. Dianna Alcocer CO2 [Moles/Vol] 28.4 mmol/L Normal 21.0-32.0 [facility] Comment on above: Performed By: #### C MADM, BNP, CMP #### [facility] [address] [place] [address] Dr. Dianna Alcocer Creatinine [Mass/Vol] 0.97 mg/dL Normal 0.55-1.02 [facility] Comment on above: Performed By: #### C MADM, BNP, CMP #### [facility] [address] [place] [address] Dr. Dianna Alcocer EGFR-AF IRAQI >60 Normal >=60 [facility] Comment on above: Performed By: #### C MADM, BNP, CMP #### [facility] [address] [place] [address] Dr. Dianna Alcocer EGFR-NON AF IRAQI 55 mL/min/1.73m2 Critically low >=60 [facility] Comment on above: Performed By: #### C MADM, BNP, CMP #### [facility] [address] [place] [address] Dr. Dianna Alcocer Globulin (S) [Mass/Vol] 2.9 g/dL Normal [facility] Comment on above: Performed By: #### C MADM, BNP, CMP #### [facility] [address] [place] [address] Dr. Dianna Alcocer Glucose [Mass/Vol] 86 mg/dL Normal 74-106 [facility] Comment on above: Performed By: #### C MADM, BNP, CMP #### [facility] [address] [place] [address] Dr. Dianna Alcocer Potassium [Moles/Vol] 3.7 mmol/L Normal 3.5-5.1 [facility] Comment on above: Performed By: #### C MADM, BNP, CMP #### [facility] [address] [place] [address] Dr. Dianna Alcocer Protein [Mass/Vol] 6.9 g/dL Normal 6.4-8.2 [facility] Comment on above: Performed By: #### C MADM, BNP, CMP #### [facility] [address] [place] [address] Dr. Dianna Alcocer Sodium [Moles/Vol] 136 mmol/L Normal 136-145 [facility] Comment on above: Performed By: #### C MADM, BNP, CMP #### [facility] [address] [place] [address] Dr. Dianna Alcocer Urea nitrogen [Mass/Vol] 9.0 mg/dL Normal 7.0-18.0 [facility] Comment on above: Performed By: #### C MADM, BNP, CMP #### [facility] [address] [place] [address] Dr. Dianna Alcocer Urea nitrogen/Creatinine [Mass ratio] 9.3 mg/mg Normal [facility] Comment on above: Performed By: #### C MADM, BNP, CMP #### [facility] [address] [address] [address] Dianna Alcocer URINE MICROSCOPIC ONLYon BACTERIA NONE SEEN Normal NONE SEEN [facility] Comment on above: Performed By: #### D EDEN CARRASQUILLO, ERUR #### [facility] [address] [address] [address] Dianna Alcocer Bacteria identified Cx Nom (U) INDICATED Normal [facility] Comment on above: Performed By: #### D EDEN CARRASQUILLO, ERUR #### [facility] [address] [address] [address] Dianna Alcocer CAST NONE SEEN Normal NONE SEEN [facility] Comment on above: Performed By: #### D EDEN CARRASQUILLO, ERUR #### [facility] [address] [address] [address] Dianna Alcocer Crystals LM Nom (Urine sed) NONE SEEN Normal NONE SEEN [facility] Comment on above: Performed By: #### D EDEN CARRASQUILLO, ERUR #### [facility] [address] [address] [address] Dianna Alcocer Epithelial cells LM Ql (Urine sed) FEW Abnormal NONE SEEN /RARE [facility] Comment on above: Performed By: #### D EDEN CARRASQUILLO, ERUR #### [facility] [address] [address] [address] Dianna Alcocer MUCOUS TRACE Abnormal NONE SEEN [facility] Comment on above: Performed By: #### D EDEN CARRASQUILLO, ERUR #### [facility] [address] [place] [address] Dr. Dianna Alcocer RBC 2-5 Abnormal 0-2 [facility] Comment on above: Performed By: #### D EDEN CARRASQUILLO, ERUR #### [facility] [address] [address] [address] Dianna Alcocer WBC 2-5 Abnormal NONE SEEN [facility] Comment on above: Performed By: #### D RUGRPD, UMICRO, ERUR #### [facility] [address] [address] [address] Dianna Alcocer VIT B12 AND FOLATEon 022 Cobalamin (Vitamin B12) [Mass/Vol] 703.0 pg/mL Normal 193.0-986.0 [facility] Comment on above: Performed By: #### C MADM, BNP, CMP #### [facility] [address] [address] [address] Dianna Alcocer FOLATE 12.90 ng/mL Normal 8.60-58.90 [facility] Comment on above: Performed By: #### C MADM, BNP, CMP #### [facility] [address] [address] [address] Dianna Alcocer XR CHEST 1 Von [...] LUZ GRIDER Date: 2022-08-24 10:01 Normal [facility] CBC AUTO DIFFon 08-23-2022 BASO # 0.1 103/ul Normal 0.0-0.1 [facility] Comment on above: Performed By: #### C MADM, BNP, CMP #### [facility] [address] [address] [address] Dianna Alcocer Basophils/100 WBC (Bld) 1.2 % Normal 0.2-2.0 [facility] Comment on above: Performed By: #### C MADM, BNP, CMP #### [facility] [address] [address] [address] Dianna Alcocer EO # 0.1 103/ul Normal 0.0-0.7 [facility] Comment on above: Performed By: #### C MADM, BNP, CMP #### [facility] [address] [place] [address] Dr. Dianna Alcocer Eosinophils/100 WBC (Bld) 1.9 % Normal 0.9-7.0 [facility] Comment on above: Performed By: #### C MADM, BNP, CMP #### [facility] [address] [place] [address] Dr. Dianna Alcocer Erythrocyte distribution width (RBC) [Ratio] 12.9 % Normal 11.0-15.0 [facility] Comment on above: Performed By: #### C MADM, BNP, CMP #### [facility] [address] [place] [address] Dr. Dianna Alcocer Hematocrit (Bld) [Volume fraction] 40.4 % Normal 36.0-48.0 [facility] Comment on above: Performed By: #### C MADM, BNP, CMP #### [facility] [address] [place] [address] Dr. Dianna Alcocer Hemoglobin (Bld) [Mass/Vol] 13.9 g/dL Normal 12.0-16.0 [facility] Comment on above: Performed By: #### C MADM, BNP, CMP #### [facility] [address] [place] [address] Dr. Dianna Alcocer IG # 0.01 10e3/ul Normal 0.00-0.03 [facility] Comment on above: Performed By: #### C MADM, BNP, CMP #### [facility] [address] [place] [address] Dr. Dianna Alcocer IG % 0.2 % Normal 0.0-0.5 [facility] Comment on above: Performed By: #### C MADM, BNP, CMP #### [facility] [address] [place] [address] Dr. Dianna Alcocer LYMPH # 1.7 103/ul Normal 1.2-3.8 [facility] Comment on above: Performed By: #### C MADM, BNP, CMP #### [facility] [address] [place] [address] Dr. Dianna Alcocer Lymphocytes/100 WBC (Bld) 39.3 % Normal 20.5-60.0 [facility] Comment on above: Performed By: #### C MADM, BNP, CMP #### [facility] [address] [place] [address] Dr. Dianna Alcocer MANUAL DIFF REQ NO Normal [facility] Comment on above: Performed By: #### C MADM, BNP, CMP #### [facility] [address] [place] [address] Dr. Dianna Alcocer MCH (RBC) [Entitic mass] 41.0 pg Critically high 26.7-34.0 [facility] Comment on above: Performed By: #### C MADM, BNP, CMP #### [facility] [address] [place] [address] Dr. Dianna Alcocer MCHC (RBC) [Mass/Vol] 34.4 g/dL Normal 29.9-35.2 [facility] Comment on above: Performed By: #### C MADM, BNP, CMP #### [facility] [address] [place] [address] Dr. Dianna Alcoecr MCV (RBC) [Entitic vol] 119.2 fL Critically high 81.0-99.0 [facility] Comment on above: Result Comment: 2+ m acrocytosis Performed By: #### C MADM, BNP, CMP #### [facility] [address] [place] [address] Dr. Dianna Alcocer MONO # 0.6 103/ul Normal 0.3-0.8 [facility] Comment on above: Performed By: #### C MADM, BNP, CMP #### [facility] [address] [place] [address] Dr. Dianna Alcocer Monocytes/100 WBC (Bld) 13.1 % Critically high 1.7-12.0 [facility] Comment on above: Performed By: #### C MADM, BNP, CMP #### [facility] [address] [place] [address] Dr. Dianna Alcocer NEUT # 1.9 103/ul Normal 1.4-6.5 [facility] Comment on above: Performed By: #### C MADM BNP, CMP #### [facility] [address] [address] [address] Dianna Alcocer Neutrophils/100 WBC (Bld) 44.3 % Normal 43.0-75.0 [facility] Comment on above: Performed By: #### C MADM, BNP, CMP #### [facility] [address] [address] [address] Dianna Alcocer Platelet mean volume (Bld) [Entitic vol] 9.9 fL Normal 9.5-13.5 [facility] Comment on above: Performed By: #### C MADM BNP, CMP #### [facility] [address] [address] [address] Dianna Alcocer PLT 274 103/ul Normal 150-450 [facility] Comment on above: Performed By: #### C MADM, BNP, CMP #### [facility] [address] [address] [address] Dianan Alcocer RBC 3.39 106/ul Critically low 4.20-5.40 [facility] Comment on above: Performed By: #### C MADM, BNP, CMP #### [facility] [address] [address] [address] Dianna Alcocer WBC 4.3 103/ul Normal 4.0-11.0 [facility] Comment on above: Performed By: #### C MADM, BNP, CMP #### [facility] [address] [address] [address] HEAD WO CONon [...] COLLIN COLEMAN Date: 2022-08-23 11:05 Normal [facility] CULTURE URINEon 08-23-2022 CULTURE URINE Culture Observations : No growth Normal [facility] Comment on above: Performed By: #### C LULA BNP, CMP #### [facility] [address] [place] [address] Dr. Dianna Alcocer ER URINE PROFILEon 2 Bilirubin Ql (U) Negative Normal NEGATIVE [facility] Comment on above: Performed By: #### C LULA BNP, CMP #### [facility] [address] [place] [address] Dr. Dianna Alcocer Clarity (U) SL CLOUDY Abnormal CLEAR [facility] Comment on above: Performed By: #### C LULA BNP, CMP #### [facility] [address] [place] [address] Dr. Dianna Alcocer Color (U) LT. YELLOW Normal YELLOW [facility] Comment on above: Performed By: #### C RAMANDEEPM BNP, CMP #### [facility] [address] [place] [address] Dr. Dianna Alcocer ERUAHD A micrscopic examination will be performed if indicated. Normal [facility] Comment on above: Performed By: #### C RAMANDEEPM BNP, CMP #### [facility] [address] [place] [address] Dr. Dianna Alcocer Glucose Ql (U) Negative Normal NEGATIVE [facility] Comment on above: Performed By: #### C MADM, BNP, CMP #### [facility] [address] [place] [address] Dr. Dianna Alcocer Hemoglobin Ql (U) LARGE Abnormal NEGATIVE [facility] Comment on above: Performed By: #### C MADM, BNP, CMP #### [facility] [address] [place] [address] Dr. Dianna Alcocer Ketones Ql (U) Negative Normal NEGATIVE [facility] Comment on above: Performed By: #### C MADM, BNP, CMP #### [facility] [address] [place] [address] Dr. Dianna Alcocer LEUKOCYTES SMALL Abnormal NEGATIVE [facility] Comment on above: Performed By: #### C MADM, BNP, CMP #### [facility] [address] [place] [address] Dr. Dianna Alcocer Nitrite Ql (U) Negative Normal NEGATIVE [facility] Comment on above: Performed By: #### C MADM, BNP, CMP #### [facility] [address] [place] [address] Dr. Dianna Alcocer pH (U) 6.0 [pH] Normal 5-9 [facility] Comment on above: Performed By: #### C MADM, BNP, CMP #### [facility] [address] [place] [address] Dr. Dianna Alcocer SPEC GRAVITY 1.020 Normal 1.005-<=1.025 [facility] Comment on above: Performed By: #### C MADM, BNP, CMP #### [facility] [address] [place] [address] Dr. Dianna Alcocer UA PROTEIN Negative Normal NEGATIVE/ TRACE [facility] Comment on above: Performed By: #### C MADM, BNP, CMP #### [facility] [address] [place] [address] Dr. Dianna Alcocer UR MICRO IND INDICATED Normal [facility] Comment on above: Performed By: #### C MADM, BNP, CMP #### [facility] [address] [place] [address] Dr. Dianna Alcocer Urobilinogen Qn (U) 0.2 {Simone'U}/dL Normal 0.2 - 1. 0 [facility] Comment on above: Performed By: #### C MADM, BNP, CMP #### [facility] [address] [address] [address] Dianna Alcocer PROF 14(COMP METB)on 022 Albumin [Mass/Vol] 4.2 g/dL Normal 3.4-5.0 [facility] Comment on above: Performed By: #### H STROPN, CMP #### [facility] [address] [address] [address] Dianna Alcocer Albumin/Globulin [Mass ratio] 1.4 {ratio} Normal [facility] Comment on above: Performed By: #### H STROPN, CMP #### [facility] [address] [address] [address] Dianna Alcocer ALP [Catalytic activity/Vol] 65 U/L Normal 46-116 [facility] Comment on above: Performed By: #### H STROPN, CMP #### [facility] [address] [address] [address] Dianna Alcocer ALT [Catalytic activity/Vol] 16 U/L Normal 14-59 [facility] Comment on above: Performed By: #### H STROPN, CMP #### [facility] [address] [address] [address] Dianna Alcocer Anion gap [Moles/Vol] 10.6 mmol/L Normal [facility] Comment on above: Performed By: #### H STROPN, CMP #### [facility] [address] [address] [address] Dianna Alcocer AST [Catalytic activity/Vol] 20 U/L Normal 15-37 [facility] Comment on above: Performed By: #### H STROPN, CMP #### [facility] [address] [address] [address] Dianna Alcocer Bilirubin [Mass/Vol] 0.7 mg/dL Normal 0.2-1.0 [facility] Comment on above: Performed By: #### H STROPN, CMP #### [facility] [address] [address] [address] Dianna Alcocer Calcium [Mass/Vol] 8.9 mg/dL Normal 8.5-10.1 [facility] Comment on above: Performed By: #### H STROPN, CMP #### [facility] [address] [address] [address] Dianna Alcocer Chloride [Moles/Vol] 101 mmol/L Normal 98-107 [facility] Comment on above: Performed By: #### H STROPN, CMP #### [facility] [address] [address] [address] Dianna Alcocer CO2 [Moles/Vol] 27.4 mmol/L Normal 21.0-32.0 [facility] Comment on above: Performed By: #### H STROPN, CMP #### [facility] [address] [address] [address] Dianna Alcocer Creatinine [Mass/Vol] 1.03 mg/dL Critically high 0.55-1.02 [facility] Comment on above: Performed By: #### H STROPN, CMP #### [facility] [address] [place] [address] Dr. Dianna Alcocer EGFR-AF IRAQI >60 Normal >=60 [facility] Comment on above: Performed By: #### H STROPN, CMP #### [facility] [address] [place] [address] Dr. Dianna Alcocer EGFR-NON AF IRAQI 51 mL/min/1.73m2 Critically low >=60 [facility] Comment on above: Performed By: #### H STROPN, CMP #### [facility] [address] [address] [address] Dianna Alcocer Globulin (S) [Mass/Vol] 3.1 g/dL Normal [facility] Comment on above: Performed By: #### H STROPN, CMP #### [facility] [address] [address] [address] Dianna Alcocer Glucose [Mass/Vol] 99 mg/dL Normal 74-106 [facility] Comment on above: Performed By: #### H STROPN, CMP #### [facility] [address] [address] [address] Dianna Alcocer Potassium [Moles/Vol] 4.0 mmol/L Normal 3.5-5.1 [facility] Comment on above: Performed By: #### H STROPN, CMP #### [facility] [address] [place] [address] Dr. Dianna Alcocer Protein [Mass/Vol] 7.3 g/dL Normal 6.4-8.2 [facility] Comment on above: Performed By: #### H STROPN, CMP #### [facility] [address] [place] [address] Dr. Dianna Alcocer Sodium [Moles/Vol] 135 mmol/L Critically low 136-145 [facility] Comment on above: Performed By: #### H TIMPN, CMP #### [facility] [address] [place] [address] Dr. Dianna Alcocer Urea nitrogen [Mass/Vol] 8.0 mg/dL Normal 7.0-18.0 [facility] Comment on above: Performed By: #### H TIMPN, CMP #### [facility] [address] [place] [address] Dr. Dianna Alcocer Urea nitrogen/Creatinine [Mass ratio] 7.8 mg/mg Normal [facility] Comment on above: Performed By: #### H TIMPN, CMP #### [facility] [address] [place] [address] Dr. Dianna Alcocer TROPONIN, HIGH SENSITIVITYon 08-23-2022 HSTROP 8.5 pg/mL Normal 4.0-51.3 [facility] Comment on above: Result Comment: CUT- OFF POINTS HAVE BEEN ESTABLISHED BASED ON THE FOURTH UNIVERSAL DEFINITIONS OF MYOCARDIAL INFARCTION. THE UPPER REFERENCE LIMIT (URL) OF TROPONIN, DEFINED THE 99TH PERCENTILE OF cTnI DISTRIBUTION IN A REFERENCE POPULATION, HAS BEEN CONFIRMED THE DECISION THRESHOLD FOR CA DIAGNOSIS. Performed By: #### H STROPN, CMP #### [facility] [address] [place] [address] Dr. Dianna Alcocer URINE MICROSCOPIC ONLYon BACTERIA SMALL Abnormal NONE SEEN [facility] Comment on above: Performed By: #### C MADM, BNP, CMP #### [facility] [address] [place] [address] Dr. Dianna Alcocer Bacteria identified Cx Nom (U) INDICATED Normal [facility] Comment on above: Performed By: #### C MADM, BNP, CMP #### [facility] [address] [place] [address] Dr. Dianna Alcocer CAST NONE SEEN Normal NONE SEEN [facility] Comment on above: Performed By: #### C MADM, BNP, CMP #### [facility] [address] [place] [address] Dr. Dianna Alcocer Crystals LM Nom (Urine sed) NONE SEEN Normal NONE SEEN [facility] Comment on above: Performed By: #### C MADM, BNP, CMP #### [facility] [address] [place] [address] Dr. Dianna Alcocer Epithelial cells LM Ql (Urine sed) FEW Abnormal NONE SEEN /RARE [facility] Comment on above: Performed By: #### C MADM, BNP, CMP #### [facility] [address] [place] [address] Dr. Dianna Alcocer MUCOUS NONE SEEN Normal NONE SEEN [facility] Comment on above: Performed By: #### C MADM, BNP, CMP #### [facility] [address] [place] [address] Dr. Dianna Alcocer RBC 0-2 Normal 0-2 [facility] Comment on above: Performed By: #### C MADM, BNP, CMP #### [facility] [address] [place] [address] Dr. Dianna Alcocer WBC 2-5 Abnormal NONE SEEN [facility] Comment on above: Performed By: #### C MADM, BNP, CMP #### [facility] [address] [place] [address] Dr. Dianna Alcocer XR CHEST 1 Von [...] No acute disease. Electronically authenticated by: SOTERO PATRICIA Date: 2022-08-23 10:29 Normal [facility] CULTURE URINEon 07-30-2022 CULTURE URINE Isolate [...] Trimethoprim/Sulfameth oxazole <=20 S F Normal [facility] Comment on above: Performed By: #### C MADM, BNP, CMP #### [facility] [address] [place] [address] ABD/PELV W CONon [...] LUZ GRIDER Date: 2022-05-08 10:36 Normal [facility] PROF CHEM 8 (BAS METB)on Anion gap [Moles/Vol] 8.4 mmol/L Normal [facility] Comment on above: Performed By: #### C MADM, BNP, CMP #### [facility] [address] [address] [address] Dianna Alcocer Calcium [Mass/Vol] 8.9 mg/dL Normal 8.5-10.1 [facility] Comment on above: Performed By: #### C MADM, BNP, CMP #### [facility] [address] [address] [address] Dianna Alcocer Chloride [Moles/Vol] 103 mmol/L Normal 98-107 [facility] Comment on above: Performed By: #### C MADM, BNP, CMP #### [facility] [address] [address] [address] Dianna Alcocer CO2 [Moles/Vol] 28.7 mmol/L Normal 21.0-32.0 [facility] Comment on above: Performed By: #### C MADM, BNP, CMP #### [facility] [address] [address] [address] Dianna Alcocer Creatinine [Mass/Vol] 0.95 mg/dL Normal 0.55-1.02 [facility] Comment on above: Performed By: #### C MADM, BNP, CMP #### [facility] [address] [address] [address] Dianna Alcocer EGFR-AF IRAQI >60 Normal >=60 [facility] Comment on above: Performed By: #### C MADM, BNP, CMP #### [facility] [address] [address] [address] Dianna Alcocer EGFR-NON AF IRAQI 56 mL/min/1.73m2 Critically low >=60 [facility] Comment on above: Performed By: #### C MADM, BNP, CMP #### [facility] [address] [address] [address] Dianna Alcocer Glucose [Mass/Vol] 91 mg/dL Normal 74-106 [facility] Comment on above: Performed By: #### C MADM, BNP, CMP #### [facility] [address] [place] [address] Dr. Dianna Alcocer Potassium [Moles/Vol] 5.1 mmol/L Normal 3.5-5.1 [facility] Comment on above: Performed By: #### C MADM, BNP, CMP #### [facility] [address] [address] [address] Dianna Alcocer Sodium [Moles/Vol] 135 mmol/L Critically low 136-145 [facility] Comment on above: Performed By: #### C MADM, BNP, CMP #### [facility] [address] [place] [address] Dr. Dianna Alcocer Urea nitrogen [Mass/Vol] 13.0 mg/dL Normal 7.0-18.0 [facility] Comment on above: Performed By: #### C MADM, BNP, CMP #### [facility] [address] [place] [address] Dr. Dianna Alcocer Urea nitrogen/Creatinine [Mass ratio] 13.7 mg/mg Normal [facility] Comment on above: Performed By: #### C MADM, BNP, CMP #### [facility] [address] [place] [address] Dr. Dianna Alcocer MG MAMM DIAGNOSTIC 3D KIRT CA Don 02-09-2022 MG MAMM DIAGNOSTIC 3D KIRT CAD Patient: JOSEFA [place] Exam Date: 02/09/2022 : 1940 Gender:F Ordering : DR TITO HILLMAN . Admission #: [id number] Family : Order #: [id number] CLICK HERE TO VIEW EXAM RADIOLOGY REPORT [...] prostate cancer at age 70. LOCATION: [facility] BREAST COMPOSITION: Almost entirely fatty. FINDINGS: [...] M.D. on 02/09/2022 at 08:27 Normal [facility] Vital Signs Date Time Vital Sign Value Performing Clinician Faci lity 10-11-2024 11:30-0500 Body height 157.5 cm Tito Hillman MD Work Phone: [facility] 10-11-2024 11:30-0500 Body mass index (BMI) [Ratio] 19.39 kg/m2 Tito Hillman MD Work Phone: [facility] 10-11-2024 11:30-0500 Body temperature 96.4 [degF] Tito Hillman MD Work Phone: [facility] 10-11-2024 11:30-0500 Body weight 48.08 kg Tito Hillman MD Work Phone: [facility] 10-11-2024 11:30-0500 Diastolic blood pressure 78 mm[Hg] Tito Hillman MD Work Phone: [facility] 10-11-2024 11:30-0500 Heart rate 58 /min Tito Hillman MD Work Phone: [facility] 10-11-2024 11:30-0500 Respiratory rate 20 /min Tito Hillman MD Work Phone: [facility] 10-11-2024 11:30-0500 SaO2% (BldA) [Mass fraction] 97 % Tito Hillman MD Work Phone: [facility] 10-11-2024 11:30-0500 Systolic blood pressure 130 mm[Hg] Tito Hillman MD Work Phone: [facility] 08-03-2024 10:33-0400 Body height 157.5 cm Tito Hillman MD Work Phone: [facility] 08-03-2024 10:33-0400 Body mass index (BMI) [Ratio] 20.12 kg/m2 Tito Hillman MD Work Phone: [facility] 08-03-2024 10:33-0400 Body temperature 96.6 [degF] Tito Hillman MD Work Phone: [facility] 08-03-2024 10:33-0400 Body weight 49.9 kg Tito Hillman MD Work Phone: [facility] 08-03-2024 10:33-0400 Diastolic blood pressure 60 mm[Hg] Tito Hillman MD Work Phone: [facility] 08-03-2024 10:33-0400 Heart rate 53 /min Tito Hillman MD Work Phone: [facility] 08-03-2024 10:33-0400 Respiratory rate 18 /min Tito Hillman MD Work Phone: [facility] 08-03-2024 10:33-0400 SaO2% (BldA) [Mass fraction] 98 % Tito Hillman MD Work Phone: [facility] 08-03-2024 10:33-0400 Systolic blood pressure 136 mm[Hg] Tito Hillman MD Work Phone: [facility] 07-06-2024 15:46-0400 Body height 157.5 cm Tito Hillman MD Work Phone: [facility] 07-06-2024 15:46-0400 Body mass index (BMI) [Ratio] 20.67 kg/m2 Tito Hillman MD Work Phone: [facility] 07-06-2024 15:46-0400 Body temperature 97.11 [degF] Tito Hillman MD Work Phone: [facility] 07-06-2024 15:46-0400 Body weight 51.26 kg Tito Hillman MD Work Phone: [facility] 07-06-2024 15:46-0400 Diastolic blood pressure 50 mm[Hg] Tito Hillman MD Work Phone: [facility] 07-06-2024 15:46-0400 Heart rate 70 /min Tito Hillman MD Work Phone: [facility] 07-06-2024 15:46-0400 Respiratory rate 20 /min Tito Hillman MD Work Phone: [facility] 07-06-2024 15:46-0400 SaO2% (BldA) [Mass fraction] 98 % Tito Hillman MD Work Phone: [facility] 07-06-2024 15:46-0400 Systolic blood pressure 106 mm[Hg] Tito Hillman MD Work Phone: [facility] 12-01-2023 13:06-0500 Body height 157.5 cm Jr. Stewart DO Work Phone: [facility] 12-01-2023 13:06-0500 Body mass index (BMI) [Ratio] 19.94 kg/m2 Jr. Stepanic DO Work Phone: [facility] 12-01-2023 13:06-0500 Body weight 49.44 kg Jr. Stepanic DO Work Phone: [facility] 07-29-2023 10:04-0400 Body temperature 97.3 [degF] Rod Roman MD Work Phone: [facility] 07-29-2023 10:04-0400 Body weight 56.97 kg Rod Roman MD Work Phone: [facility] 07-29-2023 10:04-0400 Diastolic blood pressure 71 mm[Hg] Rod Roman MD Work Phone: [facility] 07-29-2023 10:04-0400 Heart rate 63 /min Rod Roman MD Work Phone: [facility] 07-29-2023 10:04-0400 Respiratory rate 16 /min Rod Roman MD Work Phone: [facility] 07-29-2023 10:04-0400 SaO2% (BldA) [Mass fraction] 97 % Rod Roman MD Work Phone: [facility] 07-29-2023 10:04-0400 Systolic blood pressure 175 mm[Hg] Rod Roman MD Work Phone: [facility] 04-08-2023 10:14-0400 Body height 157.5 cm Rod Roman MD Work Phone: [facility] 04-08-2023 10:14-0400 Body temperature 97.81 [degF] Rod Roman MD Work Phone: [facility] 04-08-2023 10:14-0400 Body weight 56.7 kg Rod Roman MD Work Phone: [facility] 06-08-2023 10:14-0400 Diastolic blood pressure 74 mm[Hg] Rod Roman MD Work Phone: [facility] 04-08-2023 10:14-0400 Heart rate 77 /min Rod Roman MD Work Phone: [facility] 04-08-2023 10:14-0400 Respiratory rate 16 /min Rod Roman MD Work Phone: [facility] 04-08-2023 10:14-0400 SaO2% (BldA) [Mass fraction] 99 % Rod Roman MD Work Phone: [facility] 04-08-2023 10:14-0400 Systolic blood pressure 161 mm[Hg] Rod Roman MD Work Phone: [facility] 12-17-2022 10:29-0500 Body height 157.5 cm Rod Roman MD Work Phone: [facility] 12-17-2022 10:29-0500 Body temperature 97.5 [degF] Rod Roman MD Work Phone: [facility] 12-17-2022 10:29-0500 Body weight 55.97 kg Rod Roamn MD Work Phone: [facility] 12-17-2022 10:29-0500 Diastolic blood pressure 81 mm[Hg] Rod Roman MD Work Phone: [facility] 12-17-2022 10:29-0500 Heart rate 66 /min Rod Roman MD Work Phone: [facility] 12-17-2022 10:29-0500 Respiratory rate 16 /min Rod Roman MD Work Phone: [facility] 12-17-2022 10:29-0500 SaO2% (BldA) [Mass fraction] 97 % Rod Roman MD Work Phone: [facility] 12-17-2022 10:29-0500 Systolic blood pressure 159 mm[Hg] Rod Roman MD Work Phone: [facility] 07-30-2022 09:55-0400 Body height 157.5 cm Rod Roman MD Work Phone: [facility] 07-30-2022 09:55-0400 Body temperature 97.59 [degF] Rod Romna MD Work Phone: [facility] 07-30-2022 09:55-0400 Body weight 58.06 kg Rod Roman MD Work Phone: [facility] 07-30-2022 09:55-0400 Diastolic blood pressure 71 mm[Hg] Rod Roman MD Work Phone: [facility] 07-30-2022 09:55-0400 Heart rate 70 /min Rod Roman MD Work Phone: [facility] 07-30-2022 09:55-0400 Respiratory rate 16 /min Rod Roman MD Work Phone: [facility] 07-30-2022 09:55-0400 SaO2% (BldA) [Mass fraction] 98 % Rod Roman MD Work Phone: [facility] 07-30-2022 09:55-0400 Systolic blood pressure 153 mm[Hg] Rod Roman MD Work Phone: [facility] 04-30-2022 11:26-0400 Body temperature 97.11 [degF] Ma Sand Work Phone: [facility] 04-30-2022 11:26-0400 Diastolic blood pressure 56 mm[Hg] Ma Sand Work Phone: [facility] 04-30-2022 11:26-0400 Heart rate 68 /min Ma Sand Work Phone: [facility] 04-30-2022 11:26-0400 Respiratory rate 16 /min Ma Sand Work Phone: [facility] 04-30-2022 11:26-0400 SaO2% (BldA) [Mass fraction] 98 % Ma Sand Work Phone: [facility] 04-30-2022 11:26-0400 Systolic blood pressure 113 mm[Hg] Ma Sand Work Phone: [facility] 04-02-2022 11:24-0400 Body height 158.1 cm Ma Sand Work Phone: [facility] 04-02-2022 11:24-0400 Body temperature 97.9 [degF] Ma Sand Work Phone: [facility] 04-02-2022 11:24-0400 Body weight 58.51 kg Ma Sand Work Phone: [facility] 04-02-2022 11:24-0400 Diastolic blood pressure 52 mm[Hg] Ma Sand Work Phone: [facility] 04-02-2022 11:24-0400 Heart rate 66 /min Ma Sand Work Phone: [facility] 04-02-2022 11:24-0400 Respiratory rate 16 /min Ma Sand Work Phone: [facility] 04-02-2022 11:24-0400 SaO2% (BldA) [Mass fraction] 97 % Ma Sand Work Phone: [facility] 04-02-2022 11:24-0400 Systolic blood pressure 119 mm[Hg] Ma Sand Work Phone: [facility] 03-05-2022 10:58-0400 Body height 158.1 cm Rod Roman MD Work Phone: [facility] 03-05-2022 10:58-0400 Body temperature 97.81 [degF] Rod Roman MD Work Phone: [facility] 03-05-2022 10:58-0400 Body weight 58.79 kg Rod Roman MD Work Phone: [facility] 03-05-2022 10:58-0400 Diastolic blood pressure 87 mm[Hg] oRd Roman MD Work Phone: [facility] 03-05-2022 10:58-0400 Heart rate 64 /min Rod Roman MD Work Phone: [facility] 03-05-2022 10:58-0400 Respiratory rate 16 /min Rod Roman MD Work Phone: [facility] 03-05-2022 10:58-0400 SaO2% (BldA) [Mass fraction] 98 % Rod Roman MD Work Phone: [facility] 03-05-2022 10:58-0400 Systolic blood pressure 178 mm[Hg] Rod Roman MD Work Phone: [facility] Encounters Encounter Date Encounter Type Care Provider Facility Start: 10-19-2024 End: 10-19-2024 Refill Susan Christin [facility] Comment on above: Migraine without aur a, not intractable, without status migrainosus ([facility]/HCC) Start: 10-11-2024 End: 10-11-2024 Bamboo flowsheet Tito Hillman MD Work Phone: [facility] Start: 10-11-2024 End: 10-11-2024 Bamboo flowsheet Tito Hillman MD Work Phone: [facility] Start: 10-11-2024 End: 10-11-2024 Patient encounter procedure Tito Hillman MD Work Phone: [facility] Work Phone: Start: 10-11-2024 End: 10-11-2024 Postop follow up visit related to original px Tito Hillman MD Work Phone: [facility] Comment on above: Medicare annual well ness visit, subsequent (Primary Dx) Start: 10-11-2024 End: 10-11-2024 ambulatory TITO HILLMAN Not Available Start: 10-02-2024 End: 10-02-2024 Refill Tito Hillman MD Work Phone: [facility] Comment on above: DDD (degenerative di sc disease), lumbar Start: 09-13-2024 End: 09-13-2024 Refill Tito Hillman MD Work Phone: [facility] Comment on above: Migraine without aur a, not intractable, without status migrainosus (CMS/HCC) Start: 08-29-2024 End: 08-29-2024 Clinisync Result Encounter Generic External Data Provider [facility] Unsolicited Start: 08-29-2024 End: 08-29-2024 Clinisync Result Encounter Generic External Data Provider [facility] Unsolicited Start: 08-29-2024 End: 08-29-2024 Refill Tito Hillman MD Work Phone: [facility] Comment on above: DDD (degenerative di sc disease), lumbar Start: 08-19-2024 End: 08-21-2024 Refill Tito Hillman MD Work Phone: [facility] Comment on above: Migraine without aur a, not intractable, without status migrainosus (CMS/HCC) Start: 08-11-2024 End: 08-11-2024 Refill Tito Hillman MD Work Phone: [facility] Comment on above: Migraine without aur a, not intractable, without status migrainosus (CMS/HCC) Start: 08-03-2024 End: 08-03-2024 Bamboo flowsheet Tito Hillman MD Work Phone: [facility] Start: 08-03-2024 End: 08-03-2024 Bamboo flowsheet Tito Hillman MD Work Phone: [facility] Start: 08-03-2024 End: 08-03-2024 Office outpatient visit 25 minutes Tito Hillman MD Work Phone: [facility] Comment on above: Essential hypertensi on, benign (CMS/HCC) (Primary Dx); Migraine without aura, not intractable, without status migrainosus (CMS/HCC); Spondylosis of lumbar region without myelopathy or radiculopathy; Major depressive disorder, recurrent episode, mild degree (HCC) (CMS/HCC); Gastroesophageal reflux disease without esophagitis Start: 08-03-2024 End: 08-03-2024 ambulatory TITO HILLMAN Not Available Start: 08-02-2024 End: 08-02-2024 Refill Tito Hillman MD Work Phone: [facility] Comment on above: Migraine without aur a, not intractable, without status migrainosus (CMS/HCC) Start: 08-02-2024 End: 08-02-2024 Refill Tito Hillman MD Work Phone: [facility] Comment on above: DDD (degenerative di sc disease), lumbar Start: 07-14-2024 End: 07-14-2024 Clinisync Result Encounter Generic External Data Provider [facility] Unsolicited Start: 07-14-2024 End: 07-14-2024 Clinisync Result Encounter Generic External Data Provider [facility] Unsolicited Start: 07-14-2024 End: 07-14-2024 Refill Tito Hillman MD Work Phone: [facility] Comment on above: Migraine without aur a, not intractable, without status migrainosus (CMS/HCC) Start: 07-06-2024 End: 07-06-2024 Office outpatient visit 25 minutes Tito Hillman MD Work Phone: [facility] Comment on above: Migraine without aur a, not intractable, without status migrainosus (CMS/HCC) (Primary Dx); Overflow incontinence of urine; Vision changes; Cerebrovascular accident (CVA), unspecified mechanism (CMS/HCC) Start: 07-06-2024 End: 07-06-2024 ambulatory TITO HILLMAN Not Available Start: 07-06-2024 End: 07-06-2024 Bamboo flowsheet Tito Hillman MD Work Phone: [facility] Start: 07-06-2024 End: 07-06-2024 Bamboo flowsheet Tito Hillman MD Work Phone: [facility] Start: 06-30-2024 End: 06-30-2024 Refill Tito Hillman MD Work Phone: [facility] Comment on above: DDD (degenerative di sc disease), lumbar Start: 06-30-2024 ambulatory [facility] Start: 06-28-2024 End: 06-30-2024 Emergency department patient visit [facility] Start: 06-28-2024 ambulatory [facility] Start: 04-10-2024 Telephone encounter Rod bird MD Work Phone: Hematology/Oncology Comment on above: Records faxed Start: 04-04-2024 Telephone encounter Rod bird MD Work Phone: Hematology/Oncology Comment on above: Lab Orders Start: 02-21-2024 End: 02-21-2024 ambulatory [facility] Start: 01-24-2024 End: 01-24-2024 ambulatory TITO HILLMAN Not Available Start: 01-05-2024 End: 01-05-2024 ambulatory [facility] Start: 12-15-2023 End: 12-22-2023 Evaluation and management of inpatient [facility] Start: 12-01-2023 End: 12-01-2023 Office outpatient visit [...] Start: 07-29-2023 End: 07-29-2023 ambulatory TITO HILLMAN Facility:[facility] Start: 04-08-2023 End: 04-08-2023 Nursing evaluation [...] Start: 04-08-2023 End: 04-08-2023 ambulatory TITO HILLMAN Facility:[facility] Start: 02-19-2023 ambulatory [facility] Start: 02-19-2023 Encounter for preprocedural cardiovascular examination [facility] Start: 01-25-2023 End: 01-26-[address] TITO [...] encounter procedure Rod Roman MD Work Phone: [facility] Start: 07-28-2022 End: 07-28-[address] TITO HILLMAN Facility:[facility] Start: 05-07-2022 End: 05-08-[address] TITO HILLMAN Facility: Start: 04-30-2022 End: 04-30-2022 Nursing evaluation of patient and report Martha Rizvi Work Phone: Hematology/Oncology Comment on above: 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) Start: 04-02-2022 End: 04-02-2022 Nursing evaluation of patient and report Martha Rivzi Work Phone: Hematology/Oncology Comment on above: Megaloblastic [...] 10-31-2018 End: 11-12-2018 Patient encounter procedure DESTINEE Arturo SMART Facility:[facility] Procedures Date Procedure Procedure Detail Performing Clinician Start: 08-29-2024 ALL CBC WITH AUTO DIFF Generic External Data Provider Start: 08-29-2024 RETICULOCYTE PCT AUTO G eneric External Data Provider Start: 07-14-2024 ALL [facility] Generic Ex ternal Data Provider Start: 07-14-2024 [facility] CMP (CMP) (FOR [facility] USE) Generic External Data Provider Plan of Treatment Date Care Activity Detail Author Start: 07-29-2026 Diabetes Screening Diabetes Screenin [facility] Start: 04-08-2026 DIABETES SCREEN DIABETES SCREEN [facility] Start: 12-17-2025 DIABETES SCREEN DIABETES SCREEN [facility] Start: 10-11-2025 Medicare Annual Wellness (AWV) Medicare Annual Wellness (AWV) [facility] Start: 07-30-2025 DIABETES SCREEN DIABETES SCREEN [facility] Start: 04-30-2025 DIABETES SCREEN DIABETES SCREEN [facility] Start: 04-11-2025 End: 04-11-2025 Patient encounter procedure 04/11/2025 10:15 AM EDT Office Visit [facility] [address] [place] [address] Tito Hillman MD [address] [place] [address] [facility] Start: 04-02-2025 DIABETES SCREEN DIABETES SCREEN [facility] Start: 03-05-2025 DIABETES SCREEN DIABETES SCREEN [facility] Start: 10-11-2024 End: 10-11-2024 Patient encounter procedure [facility] Comment on above: Arrived Start: 10-09-2024 End: 10-09-2024 Patient encounter procedure 10/09/2024 1:30 PM EST Office Visit [facility] [address] [place] [address] Tito Hillman MD [address] [place] [address] [facility] Start: 08-03-2024 End: 08-03-2024 Patient encounter procedure [facility] Comment on above: Arrived Start: 07-06-2024 End: 07-06-2024 Patient encounter procedure [facility] Comment on above: Arrived Start: 07-02-2024 Influenza vaccination [facility] Start: 04-17-2024 End: 04-04-2025 CBC W Auto Differential panel - Blood COMPLETE BLOOD COUNT AND DIFFERENTIAL Lab Routine 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 Expected: 04/17/2024 (Approximate), Expires: 04/04/2025 [facility] Comment on above: Expected: 04/17/2024 (Approximate), Expires: 04/04/2025 Start: 04-17-2024 End: 04-04-2025 Comprehensive metabolic 2000 panel - Serum or Plasma COMPREHENSIVE METABOLIC PANEL Lab Routine 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 Expected: 04/17/2024 (Approximate), Expires: 04/04/2025 [facility] Comment on above: Expected: 04/17/2024 (Approximate), Expires: 04/04/2025 Start: 04-17-2024 End: 04-04-2025 Lactate dehydrogenase [Enzymatic activity/volume] in Serum or Plasma LACTATE DEHYDROGENASE Lab Routine 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 Expected: 04/17/2024 (Approximate), Expires: 04/04/2025 [facility] Work Phone: Comment on above: Expected: 04/17/2024 (Approximate), Expires: 04/04/2025 Start: 04-17-2024 End: 04-17-2024 Follow-up encounter 04/17/2024 11:15 AM EDT Visit (SP) Office Hematology/Oncology [address] [address] Rod Roman MD [address] [address] follow up Hematology/Oncology Comment on above: follow up Start: 04-17-2024 End: 04-17-2024 Patient encounter procedure 04/17/2024 11:00 AM EDT Office Visit [facility] [address] [place] [address] lab [facility] Comment on above: lab Start: 01-24-2024 End: 01-24-2024 Patient encounter procedure 01/24/2024 10:15 AM EDT Office Visit [facility] [address] [place] [address] Tito Hillman MD [address] [place] [address] [facility] Start: 11-18-2023 End: 07-29-2024 CBC W Auto Differential panel - Blood CBC + DIFF Lab Routine 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 (HCC) Expected: 11/18/2023 (Approximate), Expires: 07/29/2024 [facility] Work Phone: Comment on above: Expected: 11/18/2023 (Approximate), Expires: 07/29/2024 Start: 11-18-2023 End: 07-29-2024 Cobalamin (Vitamin B12) [Mass/volume] in Serum or Plasma VITAMIN B12 BLOOD Lab Routine 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 (HCC) Expected: 11/18/2023 (Approximate), Expires: 07/29/2024 [facility] Work Phone: Comment on above: Expected: 11/18/2023 (Approximate), Expires: 07/29/2024 Start: 11-18-2023 End: 07-29-2024 Comprehensive metabolic 2000 panel - Serum or Plasma COMP METABOLIC PANEL Lab Routine 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 (HCC) Expected: 11/18/2023 (Approximate), Expires: 07/29/2024 [facility] Work Phone: Comment on above: Expected: 11/18/2023 (Approximate), Expires: 07/29/2024 Start: 11-18-2023 End: 07-29-2024 Ferritin [Mass/volume] in Serum or Plasma FERRITIN BLD Lab Routine 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 (HCC) Expected: 11/18/2023 (Approximate), Expires: 07/29/2024 [facility] Work Phone: Comment on above: Expected: 11/18/2023 (Approximate), Expires: 07/29/2024 Start: 11-18-2023 End: 07-29-2024 Folate [Mass/volume] in Serum or Plasma FOLATE SERUM Lab Routine 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 (HCC) Expected: 11/18/2023 (Approximate), Expires: 07/29/2024 [facility] Work Phone: Comment on above: Expected: 11/18/2023 (Approximate), Expires: 07/29/2024 Start: 11-18-2023 End: 07-29-2024 Iron and Iron binding capacity panel - Serum or Plasma IRON + TIBC Lab Routine 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 (HCC) Expected: 11/18/2023 (Approximate), Expires: 07/29/2024 [facility] Work Phone: Comment on above: Expected: 11/18/2023 (Approximate), Expires: 07/29/2024 Start: 11-01-2023 Advance Directive Discussion Advance Directive Discussion [facility] Start: 11-01-2023 Behavioral Health Screening Behavioral Health Screening [facility] Start: 09-23-2023 End: 07-29-2024 CBC W Auto Differential panel - Blood CBC + DIFF Lab Routine 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 (HCC) Expected: 09/23/2023 (Approximate), Expires: 07/29/2024 [facility] Work Phone: Comment on above: Expected: 09/23/2023 (Approximate), Expires: 07/29/2024 Start: 09-23-2023 End: 07-29-2024 Cobalamin (Vitamin B12) [Mass/volume] in Serum or Plasma VITAMIN B12 BLOOD Lab Routine 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 (HCC) Expected: 09/23/2023 (Approximate), Expires: 07/29/2024 [facility] Work Phone: Comment on above: Expected: 09/23/2023 (Approximate), Expires: 07/29/2024 Start: 09-23-2023 End: 07-29-2024 Comprehensive metabolic 2000 panel - Serum or Plasma COMP METABOLIC PANEL Lab Routine 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 (HCC) Expected: 09/23/2023 (Approximate), Expires: 07/29/2024 [facility] Work Phone: Comment on above: Expected: 09/23/2023 (Approximate), Expires: 07/29/2024 Start: 09-23-2023 End: 07-29-2024 Ferritin [Mass/volume] in Serum or Plasma FERRITIN BLD Lab Routine 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 (HCC) Expected: 09/23/2023 (Approximate), Expires: 07/29/2024 [facility] Work Phone: Comment on above: Expected: 09/23/2023 (Approximate), Expires: 07/29/2024 Start: 09-23-2023 End: 07-29-2024 Folate [Mass/volume] in Serum or Plasma FOLATE SERUM Lab Routine 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 (HCC) Expected: 09/23/2023 (Approximate), Expires: 07/29/2024 [facility] Work Phone: Comment on above: Expected: 09/23/2023 (Approximate), Expires: 07/29/2024 Start: 09-23-2023 End: 07-29-2024 Iron and Iron binding capacity panel - Serum or Plasma IRON + TIBC Lab Routine 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 (HCC) Expected: 09/23/2023 (Approximate), Expires: 07/29/2024 [facility] Work Phone: Comment on above: Expected: 09/23/2023 (Approximate), Expires: 07/29/2024 Start: 07-02-2023 Covid-19 Vaccine ( season) Covid-19 Vaccine () [facility] Start: 07-02-2023 Influenza vaccination Influenza Vacc ine (#1) [facility] Start: 12-19-2022 Covid-19 Vaccine (6 - Pfizer series) Covid-19 Vaccine (6 - Pfizer series) [facility] Start: 11-01-2022 ADVANCE DIRECTIVE DISCUSSION ADVANCE DIRECTIVE DISCUSSION [facility] Start: 11-01-2022 DEPRESSION ASSESSMENT DEPRESSION ASS ESSMENT [facility] Start: 07-18-2022 COVID-19 VACCINE (5 - Booster for Pfizer series) COVID-19 VACCINE (5 - Booster for Pfizer series) [facility] Start: 07-02-2022 Influenza vaccination INFLUENZA (#1) [facility] Start: 05-28-2022 End: 07-28-2022 VITAMIN B12 BLOOD VITAMIN B12 BLOOD Lab Routine 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 Osteopenia of multiple sites Expected: 05/28/2022 (Approximate), Expires: 07/28/2022 [facility] Work Phone: Comment on above: Expected: 05/28/2022 (Approximate), Expires: 07/28/2022 Start: 12-28-2021 COVID-19 VACCINE (4 - Booster for Pfizer series) COVID-19 VACCINE (4 - Booster for Pfizer series) [facility] Start: 11-01-2021 ADVANCE DIRECTIVE DISCUSSION ADVANCE DIRECTIVE DISCUSSION [facility] Start: 11-01-2021 DEPRESSION ASSESSMENT DEPRESSION ASS ESSMENT [facility] Start: 2005 BONE DENSITY BONE DENSITY [facility] Start: 2005 Bone Density Screening Bone Density Screening [facility] Start: 2005 Screening for osteoporosis Bone Density Screening [facility] Start: 2000 RSV Vaccine (1 - 1-d ose 60+ series) RSV Vaccine (1 - 1-dose 60+ series) [facility] Start: 1990 SHINGRIX VACCINE (1 of 2) SHINGRIX VACCINE (1 of 2) [facility] Start: 1959 Urine microalbumin profile [facility] Start: 1940 Medicare Annual Wellness (AWV) Medicare Annual Wellness (AWV) [facility] XR Hip - left 3 Views XR hip lef t 2 or 3 views Imaging Routine Left hip pain 12/01/2023 1:10 PM EST [facility] Work Phone: [facility] Immunizations Immunization Date Immunization Notes [facility] Provider [facility]-18-2022 influenza, high-dose , quadrivalent vaccine (FLUZONE HIGH DOSE QUADRIVALENT) Rod Roman MD Work Phone: [facility] 08-18-2022 influenza virus vacc ine, unspecified formulation Rod Roman MD Work Phone: [facility] 08-06-2021 influenza, high-dose , quadrivalent vaccine (FLUZONE HIGH DOSE QUADRIVALENT) Rod Roman MD Work Phone: [facility] 12-31-2020 COVID-19 vaccine, ag e 12+ yr (PFIZER-BIONTECH - PURPLE TOP) Rod Roman MD Work Phone: [facility] 11-30-2020 COVID-19 vaccine, ag e 12+ yr (PFIZER-BIONTECH - PURPLE TOP) Rod Roman MD Work Phone: [facility] 08-19-2020 influenza, high-dose , quadrivalent vaccine (FLUZONE HIGH DOSE QUADRIVALENT) Rod Roman MD Work Phone: [facility] 09-09-2019 influenza, high dose seasonal, preservative-free Rod Roman MD Work Phone: [facility] 07-12-2018 influenza, high dose seasonal, preservative-free Rod Roman MD Work Phone: [facility] 09-25-2017 influenza, high dose seasonal, preservative-free Rod Roman MD Work Phone: [facility] 08-12-2016 influenza, injectabl e, quadrivalent, preservative free Rod Roman MD Work Phone: [facility] 08-12-2016 pneumococcal polysaccharide vaccine, 23 valent Rod Roman MD Work Phone: [facility] 07-11-2016 influenza, high dose seasonal, preservative-free Rod Roman MD Work Phone: [facility] 06-15-2015 influenza, high dose seasonal, preservative-free Rod Roman MD Work Phone: [facility] 06-15-2015 pneumococcal conjuga te vaccine, 13 valent Rod Roman MD Work Phone: [facility] 08-08-2014 influenza virus vacc ine, whole virus Rod Roman MD Work Phone: [facility] 07-12-2010 pneumococcal conjuga te vaccine, 7 valent Rod Roman MD Work Phone: [facility] Payers Date Payer Category Payer Other GENERIC OTHER [place] [id number] 2005 Medicare MEDICARE MEDICAR E A AND B [id number] 2005-Present [phone] [address] [address] [place] [address] Medicare [id number] 2005 Medicare [id number] [id number] 2005 Unknown HOSPITAL/MEDICAL GENERIC MEDICAL GENERIC [id number] 2005-Present [phone] [address] [address] [place] [address] Indemnity [id number] 2005 Unknown [id number] [id number] [id number] 1959 Medicare [id number] 1959 Unknown [id number] 1940 Unknown [id number] 2.16.840.1.840151.3.579.2.647 1940 Unknown [id number] 2.16.840.1.536379.3.579.2.593 1940 Unknown [id number] 2.16.840.1.818890.3.579.2.593 1940 Unknown [id number] 2.16.840.1.611478.3.579.2.593 1940 Unknown [id number] 2.16.840.1.762314.3.579.2.593 1940 Unknown [id number] 2.16.840.1.394818.3.579.2.593 1940 Unknown [id number] 2.16.840.1.337895.3.579.2.593 1940 Unknown [id number] 2.16.840.1.760898.3.579.2.593 1940 Unknown [id number] 2.16.840.1.556209.3.579.2.175 1940 Unknown [id number] 2.16.840.1.002425.3.579.2.175 1940 Unknown [id number] 2.16.840.1.668312.3.579.2.175 1940 Unknown [id number] 2.16.840.1.252891.3.579.2.128 6 1940 Unknown [id number] 2.16.840.1.490229.3.579.2.128 6 1940 Unknown [id number] 2.16.840.1.540885.3.579.2.128 6 1940 Unknown [id number] 2.16.840.1.053424.3.579.2.128 6 1940 Unknown [id number] 2.16.840.1.690200.3.579.2.125 9 1940 Unknown [id number] 2.16.840.1.080792.3.579.2.125 9 1940 Unknown [id number] 2.16.840.1.175654.3.579.2.125 9 1940 Unknown [id number] 2.16.840.1.037126.3.579.2.125 9 1940 Unknown [id number] 2.16.840.1.695552.3.579.2.125 9 1940 Unknown [id number] 2.16.840.1.245571.3.579.2.125 9 1940 Unknown [id number] 2.16.840.1.637329.3.579.2.125 9 1940 Unknown [id number] 2.16.840.1.991783.3.579.2.125 9 Medicare [id number] Social History Date Type Detail Facility Start: 11-11-2020 End: 10-15-2023 Tobacco smoking status NHIS Ex-smoker [facility] Start: 12-30-2009 End: 08-01-2020 History of tobacco use Current smoker [facility] Start: 11-11-2020 End: 10-11-2024 Cigarettes smoked current (pack per day) - Reported 1 [facility] Start: 11-11-2020 Tobacco use and exposure Smoke less tobacco non-user [facility] Start: 03-05-2022 End: 04-08-2023 Alcohol intake Current drinker of alcohol (finding) [facility] Start: 1940 Sex Assigned At Not on file [facility] Start: 02-23-2022 End: 07-30-2022 Exposure to SARS-CoV-2 (event) Not sure [facility] Start: 12-30-2009 End: 08-01-2020 History of tobacco use Cigarette Smoker [facility] Start: 04-08-2023 End: 10-11-2024 Tobacco use panel [facility] Adult Depression Scr eening Assessment 0 [facility] Clinical Notes 01-30-2022 to 10-11-2024 Tito Hillman MD - 10/11/2024 11:58 AM Marni Hillman MD - 10/11/2024 11:30 AM Marni Hillman MD - 08/03/2024 11:53 AM Francheska Hillman MD - 08/03/2024 11:53 AM EDTPatient Instructions Note Date & Type Note Facility 10-11-2024 History of Presen t illness Narrative Associated Problem(s): Medicare annual wellness visit, subsequent Reviewed labs. Discussed proper diet and regular aerobic exercise. Need aerobic exercise 5-6 days a week for 30 minutes at a time. Smaller portions and limit total calories. Tetanus every 10 years. Advised not to smoke. Images from the original note were not included. Subjective Patient ID: Josefa Castillo is a 84 y.o. female who presents for Medicare Annual Wellness Visit Subsequent (wellness). Presents for medicare annual wellness visit. Weight down 20 pounds in past year. Reports poor appetite and not eating much. Feels full quickly and often not hungry. Tries to stay active around the house. Recently had labs drawn for hematology. Review of Systems Respiratory: Negative for cough, shortness of breath and wheezing. Cardiovascular: Negative for chest pain and palpitations. Gastrointestinal: Negative for abdominal pain, diarrhea, nausea and vomiting. Genitourinary: Negative for dysuria. Objective Physical Exam Constitutional: General: She is not in acute distress. Appearance: Normal appearance. HENT: Head: Normocephalic. Right Ear: Tympanic membrane normal. Left Ear: Tympanic membrane normal. Eyes: Extraocular Movements: Extraocular movements intact. Pupils: Pupils are equal, round, and reactive to light. Cardiovascular: Rate and Rhythm: Normal rate and regular rhythm. Heart sounds: No murmur heard. No friction rub. No gallop. Pulmonary: Effort: Pulmonary effort is normal. Breath sounds: Normal breath sounds. No wheezing, rhonchi or rales. Abdominal: General: Bowel sounds are normal. There is no distension. Palpations: Abdomen is soft. Tenderness: There is no abdominal tenderness. There is no guarding or rebound. Musculoskeletal: General: No swelling or tenderness. Cervical back: Neck supple. Right lower leg: No edema. Left lower leg: No edema. Skin: Findings: No erythema or rash. Neurological: General: No focal deficit present. Mental Status: She is alert and oriented to person, place, and time. Cranial Nerves: No cranial nerve deficit. Motor: No weakness. Gait: Gait normal. Assessment/Plan Problem List Items Addressed This Visit Medicare annual wellness visit, subsequent - Primary Reviewed labs. Discussed proper diet and regular aerobic exercise. Need aerobic exercise 5-6 days a week for 30 minutes at a time. Smaller portions and limit total calories. Tetanus every 10 years. Advised not to smoke. documented in this encounter [facility] 08-03-2024 History of Presen t illness Narrative Associated Problem(s): Spondylosis of lumbar region without myelopathy or radiculopathy Pain stable and use norco PRN. Discussed risks and benefits of opiate therapy. Warned medication is narcotic and risk of addiction. OARRS reviewed. Associated Problem(s): Migraine without aura, not intractable, without status migrainosus (CMS/HCC) BANKS slightly better but still daily and increase topamax. Use fioricet PRN. Associated Problem(s): Major depressive disorder, recurrent episode, mild degree (HCC) (CMS/HCC) Symptoms controlled with medication and continue. Associated Problem(s): Gastroesophageal reflux disease without esophagitis Symptoms controlled with zantac and continue. Associated Problem(s): Essential hypertension, benign (CMS/HCC) BP controlled and monitor PRN. Images from the original note were not included. Subjective Patient ID: Josefa Castillo is a 84 y.o. female who presents for Follow-up (1m). Follow up HTN, migraines, back pain, depression, and GERD. Checking BP PRN and typically controlled. BP normal today. Taking medication daily and tolerating without side effects. Migraines slightly better. Continues to have daily BANKS and at times severe. Pain starts in back of head then spreads. Throbbing pain in entire head associated with photophobia, phonophobia and nausea. Using fioricet PRN and helps. Back pain unchanged. Pain in low back and across top hips. No radiation into gluteal region or down legs. Pain worse with walking and standing. Using norco PRN and helps when needed. Depression controlled with paxil and seroquel. Not down or sad and feels happier. GERD controlled with zantac. Denies epigastric pain or burning and not waking up with symptoms. Review of Systems Respiratory: Negative for cough, shortness of breath and wheezing. Cardiovascular: Negative for chest pain and palpitations. Gastrointestinal: Negative for abdominal pain, diarrhea, nausea and vomiting. Genitourinary: Negative for dysuria. Objective Physical Exam Constitutional: General: She is not in acute distress. Appearance: Normal appearance. HENT: Head: Normocephalic. Right Ear: Tympanic membrane normal. Left Ear: Tympanic membrane normal. Eyes: Extraocular Movements: Extraocular movements intact. Pupils: Pupils are equal, round, and reactive to light. Cardiovascular: Rate and Rhythm: Normal rate and regular rhythm. Heart sounds: No murmur heard. No friction rub. No gallop. Pulmonary: Effort: Pulmonary effort is normal. Breath sounds: Normal breath sounds. No wheezing, rhonchi or rales. Abdominal: General: Bowel sounds are normal. There is no distension. Palpations: Abdomen is soft. Tenderness: There is no abdominal tenderness. There is no guarding or rebound. Musculoskeletal: Cervical back: Neck supple. Right lower leg: No edema. Left lower leg: No edema. Neurological: Mental Status: She is alert. Assessment/Plan Problem List Items Addressed This Visit Essential hypertension, benign (CMS/HCC) - Primary BP controlled and monitor PRN. Major depressive disorder, recurrent episode, mild degree (HCC) (CMS/HCC) Symptoms controlled with medication and continue. Spondylosis of lumbar region without myelopathy or radiculopathy Pain stable and use norco PRN. Discussed risks and benefits of opiate therapy. Warned medication is narcotic and risk of addiction. OARRS reviewed. Gastroesophageal reflux disease without esophagitis Symptoms controlled with zantac and continue. Migraine without aura, not intractable, without status migrainosus (CMS/HCC) BANKS slightly better but still daily and increase topamax. Use fioricet PRN. Relevant Medications topiramate (Topamax) 50 MG tablet documented in this encounter [facility] 07-06-2024 History of Presen t illness Narrative Associated Problem(s): Cerebrovascular accident (stroke) (CMS/HCC) Prior CVA but no recent stroke. Continue aspirin and statin. Associated Problem(s): Vision changes Continued vision changes and follow with new eye doctor. Associated Problem(s): Overflow incontinence of urine C/o incontinence and try medication. Associated Problem(s): Migraine without aura, not intractable, without status migrainosus (CMS/HCC) Severe BANKS and symptoms likely complex migraine. Start topamax. Use fioricet or imitrex PRN. Images from the original note were not included. Subjective Patient ID: Josefa Castillo is a 83 y.o. female who presents for Follow-up (/[facility]/up). Hospital follow up from 06/28-06/29 for BANKS, blurry vision, and numbness. Developed severe BANKS. Pain behind eye and severe BANKS. Throbbing pain in entire head associated with photophobia, phonophobia and nausea. C/o numbness in left side face and left arm. Vision blurred and hard to see. To ER and CT head negative. CTA head and neck negative and admitted. MRI negative for acute stroke. BANKS treated in ER and numbness resolved. C/o frequent BANKS daily since. Using OTC and not helping. Continues to have problems with vision in left eye. Seen by eye doctor and told things looked bad and not able to help. Review of Systems Respiratory: Negative for cough, shortness of breath and wheezing. Cardiovascular: Negative for chest pain and palpitations. Gastrointestinal: Negative for abdominal pain, diarrhea, nausea and vomiting. Genitourinary: Negative for dysuria. Objective Physical Exam Constitutional: General: She is not in acute distress. Appearance: Normal appearance. HENT: Head: Normocephalic. Right Ear: Tympanic membrane normal. Left Ear: Tympanic membrane normal. Eyes: Extraocular Movements: Extraocular movements intact. Pupils: Pupils are equal, round, and reactive to light. Cardiovascular: Rate and Rhythm: Normal rate and regular rhythm. Heart sounds: No murmur heard. No friction rub. No gallop. Pulmonary: Effort: Pulmonary effort is normal. Breath sounds: Normal breath sounds. No wheezing, rhonchi or rales. Abdominal: General: Bowel sounds are normal. There is no distension. Palpations: Abdomen is soft. Tenderness: There is no abdominal tenderness. There is no guarding or rebound. Musculoskeletal: Cervical back: Neck supple. Right lower leg: No edema. Left lower leg: No edema. Neurological: Mental Status: She is alert. Assessment/Plan Problem List Items Addressed This Visit Cerebrovascular accident (stroke) (CMS/HCC) Prior CVA but no recent stroke. Continue aspirin and statin. Migraine without aura, not intractable, without status migrainosus (CMS/HCC) - Primary Severe BANKS and symptoms likely complex migraine. Start topamax. Use fioricet or imitrex PRN. Relevant Medications SUMAtriptan (Imitrex) 50 MG tablet topiramate (Topamax) 25 MG tablet [id number]-srxggu ne 50-325-40 MG tablet Overflow incontinence of urine C/o incontinence and try medication. Relevant Medications oxybutynin XL (Ditropan XL) 10 MG 24 hr tablet Vision changes Continued vision changes and follow with new eye doctor. documented in this encounter [facility] 04-10-2024 Telephone encounter Note Records faxed to Dr. Stark at [place]. [facility] 04-10-2024 Miscellaneous Notes Records faxed to Dr. Stark at [place]. documented in this encounter [facility] 04-04-2024 Telephone encounter Note Patient has an appt on 04/17/24. Would you like labs-her labs are , please place orders. Janeth Bright MA [facility] 04-04-2024 Miscellaneous Notes Patient has an appt on 04/17/24. Would you like labs-her labs are , please place orders. Janeth Bright MA documented in this encounter [facility] 12-01-2023 History of Presen t illness Narrative Images from the original note were not included. HISTORY OF PRESENT ILLNESS: EST PT Josefa Castillo is an 83 y.o. @ female. (EST PT; MOST RECENT VISIT WITH ALEXANDREA) S/P (L) HIP FX W/ ORIF 08/26/23 (13WKS 6DAY) @ [facility] - PT C/O PAIN XRAY LT HIP [...] 100 mg, Oral, 2 times daily HYDROcodone-acetaminophen ([place]) 5-325 MG tablet 1 tablet, Oral, 4 [...] recommending a referral to Dr. Christine in [place] with patient's verbal agreeance. We have discussed her HEP and restrictions and will see her back on a prn basis. Lupe Field MA documented in this encounter [facility] 07-29-2023 Instructions Rod Roman MD - 07/29/2023 10:45 AM EDT Labs to include B12 in 8 weeks. Labs every 8 weeks, CBC, CMP Continue current regimen of Hydrea 500 mg daily Wednesday - Wednesday but increase to 2 tablets (1000 mg) on Saturdays and Sundays) B12 Shot today and every 8 weeks. RTC in 16 weeks documented in this encounter [facility] 07-29-2023 History of Presen t illness Narrative Images from the original note were not included. NAME: Josefa Castillo CLINIC NO.: [id number] DATE OF SERVICE: July 29, 2023 (Carlos) [...] 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 She has been on various dosing through [...] month 3. Basal cell ca of right hoahaoism April 2023 PLAN: Labs to include B12 in 8 weeks. Labs every 8 weeks, CBC, CMP Continue current regimen of Hydrea 500 mg daily Wednesday - Wednesday but increase to 2 tablets (1000 mg) on Saturdays and Sundays) B12 Shot today and every 8 weeks. RTC in 16 weeks HPI: Updated Visit, July 29, 2023: Right hoahaoism was not a melanoma - basal cell. Labs reviewed and adjusted hydrea on weekends Otherwise is doing very well. Updated Visit, April 08, 2023: Says she's not doing well. Difficulty with vision Need records from right hoahaoism melanoma. Continues B12 shots every 8 weeks [...] the left side of head over the hoahaoism and into the jaw. No vision changes associated with pain. Intermittent and dull and pounding. Right hoahaoism at the corner of her eye lid [...] She was following with Dr. Bower in [facility]. Initially on 6 pills of hydrea. 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 She has not required other treatments. Also a history of iron deficiency and required iron infusions occasionally. She then moved [facility] in [address] Pfeiffer, technical training coordinator in [facility] and required more iron and blood and [...] which included preparing to see the patient, [id number] patient care, completing clinical documentation, performing a medically appropriate examination, counseling and educating the patient/family/caregiver, ordering medications, tests, or procedures, and independently interpreting results (not separately reported). Rod Roman MD, [place], [place] CC: Tito Hillman MD [facility] [id number] documented in this encounter [facility] 07-29-2023 Note HNO ID: [id number] Author: Rod Roman MD Service: ? Author Type: Physician Type: Progress Notes Filed: 08/01/2023 3:49 PM Note Text: NAME: Josefa Castillo [facility] NO.: [id number] DATE OF SERVICE: July 29, 2023 (Carlos) [...] 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 She has been on various dosing through [...] month 3. Basal cell ca of right hoahaoism April 2023 PLAN: Labs to include B12 in 8 weeks. Labs every 8 weeks, CBC, CMP Continue current regimen of Hydrea 500 mg daily Wednesday - Wednesday but increase to 2 tablets (1000 mg) on Saturdays and Sundays) B12 Shot today and every 8 weeks. RTC in 16 weeks HPI: Updated Visit, July 29, 2023: Right hoahaoism was not a melanoma - basal cell. Labs reviewed and adjusted hydrea on weekends Otherwise is doing very well. Updated Visit, April 08, 2023: Says she's not doing well. Difficulty with vision Need records from right hoahaoism melanoma. Continues B12 shots every 8 weeks [...] the left side of head over the hoahaoism and into the jaw. No vision changes associated with pain. Intermittent and dull and pounding. Right hoahaoism at the corner of her eye lid [...] on Hydrea 50 (more content not included)... [facility] 04-08-2023 Nurse Note Patient Identification confirmed: yes. Injection given and documented on DEC per provider order. Janeth Bright MA documented in this encounter [facility] 04-08-2023 Note HNO ID: [id number] Author: Rod Roman MD Service: ? Author Type: Physician Type: Progress Notes Filed: 04/11/2023 2:03 PM Note Text: NAME: Josefa Castillo CLINIC NO.: [id number] DATE OF SERVICE: April 08, 2023 (Carlos) [...] 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 Continues B12 shots every 8 weeks [...] the left side of head over the hoahaoism and into the jaw. No vision changes associated with pain. Intermittent and dull and pounding. Right hoahaoism at the corner of her eye lid [...] antibiotic last Mo (more content not included)... [facility] 04-08-2023 History of Presen t illness Narrative Images from the original note were not included. NAME: Josefa Castillo CLINIC NO.: [id number] DATE OF SERVICE: April 08, 2023 (Carlos) [...] 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 Continues B12 shots every 8 weeks [...] the left side of head over the hoahaoism and into the jaw. No vision changes associated with pain. Intermittent and dull and pounding. Right hoahaoism at the corner of her eye lid [...] She was following with Dr. Bower in [facility]. Initially on 6 pills of hydrea. 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 She has not required other treatments. Also a history of iron deficiency and required iron infusions occasionally. She then moved [facility] in [address] Pfeiffer, technical training coordinator in [facility] and required more iron and blood and [...] which included preparing to see the patient, [id number] patient care, completing clinical documentation, performing a medically appropriate examination, counseling and educating the patient/family/caregiver, ordering medications, tests, or procedures, and independently interpreting results (not separately reported). Rod Roman MD, CPE [place], [place] CC: Tito Hillman MD [address] [place] [address] documented in this encounter [facility] 02-19-2023 Note Cardiovascular Medic [facility] SUBJECTIVE Chief Complaint Patient presents with Coronary Artery Disease Hypertension Telehealth Phone Visit Josefa Castillo is a 82 y.o. female being evaluated for routine follow-up. HPI PMHx of HTN, CAD s/p stents x3 to LAD and RCA done in [place]. She has a hx of a loop recorder being placed in [place] d/t complaint of syncope. Loop recorder battery , never removed. Dr. Smart gave her the option to go to [place] to have it removed but she refused. [...] Affect: Mood normal (more content not included)... [facility] 02-19-2023 Note Telephone apt for 2 [...] All other systems reviewed and are negative. [facility] 12-17-2022 History of Presen t illness Narrative Patient Identification confirmed: yes. Injection given and documented on DEC per provider order. Katya Craig documented in this encounter [facility] 12-17-2022 Instructions Rod Roman MD - 12/17/2022 10:48 AM EST Labs every 8 weeks, CBC, CMP Labs to include B12 in 8 weeks. Continue current regimen of Hydrea 500 mg daily B12 Shot today and every 8 weeks. RTC in 16 weeks Defer left sided headache and right hoahaoism lesion to Dr. Hillman. documented in this encounter [facility] 12-17-2022 History of Presen t illness Narrative Images from the original note were not included. NAME: Josefa Castillo [facility] NO.: [id number] DATE OF SERVICE: December 17, 2022 (Carlos) [...] 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 She has been on various dosing through [...] weeks Defer left sided headache and right hoahaoism lesion to Dr. Hillman. HPI: Updated Visit, [...] the left side of head over the hoahaoism and into the jaw. No vision changes associated with pain. Intermittent and dull and pounding. Right hoahaoism at the corner of her eye lid [...] She was following with Dr. Bower in [facility]. Initially on 6 pills of hydrea. 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 She has not required other treatments. Also a history of iron deficiency and required iron infusions occasionally. She then moved [facility] in [address] Pfeiffer, technical training coordinator in [facility] and required more iron and blood and [...] which included preparing to see the patient, [id number] patient care, completing clinical documentation, performing a medically appropriate examination, counseling and educating the patient/family/caregiver, ordering medications, tests, or procedures, and independently interpreting results (not separately reported). Rod Roman MD, CPE [facility] [place], [place] CC: Tito Hillman MD [address] [facility] [id number] documented in this encounter [facility] 11-12-2022 Miscellaneous Notes Please change b-12 date to 11/13/21. Kiera Rey Ma documented in this encounter [facility] 07-30-2022 Nurse Note Patient Identification confirmed: yes. Injection given and documented on DEC per provider order. Lory Avitia documented in this encounter [facility] 07-30-2022 Instructions Rod Roman MD - 07/30/2022 10:30 AM EDT Labs every 4 weeks, CBC, CMP Labs to include B12 in 8 weeks. Continue current regimen of Hydrea 500 mg daily B12 Shot today and every 4 weeks. Defer left sided headache and right hoahaoism lesion to Dr. Hillman. documented in this encounter [facility] 07-30-2022 History of Presen t illness Narrative Images from the original note were not included. NAME: Josefa Castillo CLINIC NO.: [id number] DATE OF SERVICE: July 30, 2022 Some [...] 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 She has been on various dosing through [...] weeks. Defer left sided headache and right hoahaoism lesion to Dr. Hillman. HPI: Updated Visit, July 30, 2022: Josefa is 82 years old and returns today with several issues outside of what we typically see her for. She has been complaining of pain on the left side of head over the hoahaoism and into the jaw. No vision changes associated with pain. Intermittent and dull and pounding. Right hoahaoism at the corner of her eye lid [...] with 2 new great granchildren born in [facility] and in the New year. Counts [...] She was following with Dr. Bower in [facility]. Initially on 6 pills of hydrea. 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 She has not required other treatments. Also a history of iron deficiency and required iron infusions occasionally. She then moved [facility] in [address] Pfeiffer, technical training coordinator in [facility] and required more iron and blood and [...] which included preparing to see the patient, [id number] patient care, completing clinical documentation, performing a medically appropriate examination, counseling and educating the patient/family/caregiver, ordering medications, tests, or procedures, and independently interpreting results (not separately reported). Rod Roman MD, CPE [facility] [place], [place] CC: Tito Hillman MD [address] [facility] [address] documented in this encounter [facility] 04-30-2022 History of Presen t illness Narrative Patient Identification confirmed: yes. Injection given and documented on DEC per provider order. Katya Craig documented in this encounter [facility] 04-02-2022 Nurse Note Patient Identification confirmed: yes. Injection given and documented on DEC per provider order. Kiera Rey Ma documented in this encounter [facility] 03-05-2022 History of Presen t illness Narrative Images from the original note were not included. NAME: Josefa Castillo CLINIC NO.: [id number] DATE OF SERVICE: March 05, 2022 Some [...] 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 She has been on various dosing through [...] She was following with Dr. Bower in [facility]. Initially on 6 pills of hydrea. 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 She has not required other treatments. Also a history of iron deficiency and required iron infusions occasionally. She then moved [facility] in [address] Pfeiffer, technical training coordinator in [facility] and required more iron and blood and [...] which included preparing to see the patient, [id number] patient care, completing clinical documentation and ordering medications, tests, or procedures. Rod Roman MD, [place], [place] CC: Tito Hillman MD [address] [facility] [address] documented in this encounter [facility] 01-30-2022 Nurse Note Patient Identification confirmed: yes. Injection given and documented on DEC per provider order. Lolly Reagan documented in this encounter [facility] Evaluation note Diagnosis Essential thrombocythemia (HCC)- Primary Essential thrombocythemia Megaloblastic anemia due to vitamin B12 deficiency Other vitamin B12 deficiency anemia Osteopenia of multiple sites [facility] Diagnosis Megaloblastic anemia due to vitamin B12 deficiency- Primary Other vitamin B12 deficiency anemia [facility] Diagnosis Megaloblastic anemia due to vitamin B12 deficiency- Primary Other vitamin B12 deficiency anemia [facility] Diagnosis Megaloblastic anemia due to vitamin B12 deficiency- Primary Other vitamin B12 deficiency anemia [facility] Diagnosis Megaloblastic anemia due to vitamin B12 deficiency- Primary Other vitamin B12 deficiency anemia [facility] Diagnosis Essential thrombocythemia (HCC)- Primary Essential thrombocythemia Iron deficiency anemia, unspecified iron deficiency anemia type [facility]* Diagnosis Essential thrombocythemia (HCC)- Primary Essential thrombocythemia Megaloblastic anemia due to vitamin B12 deficiency Other vitamin B12 deficiency anemia Iron deficiency anemia, unspecified iron deficiency anemia type [facility]* Diagnosis Essential thrombocythemia (HCC)- Primary Essential thrombocythemia Megaloblastic anemia due to vitamin B12 deficiency Other vitamin B12 deficiency anemia [facility]* Diagnosis Megaloblastic anemia due to vitamin B12 deficiency- Primary Other vitamin B12 deficiency anemia Essential thrombocythemia (HCC) Essential thrombocythemia [facility]* Diagnosis Left hip pain- Primary Pain in joint, pelvic region and thigh Pain from implanted hardware, initial encounter documented in this encounter [facility]* Diagnosis Essential thrombocythemia (HCC)- Primary Essential thrombocythemia Megaloblastic anemia due to vitamin B12 deficiency Other vitamin B12 deficiency anemia [facility] Diagnosis Migraine without aura, not intractable, without status migrainosus (CMS/HCC) documented in this encounter [facility]* Diagnosis DDD (degenerative disc disease), lumbar Degeneration of lumbar or lumbosacral intervertebral disc documented in this encounter [facility]* Diagnosis Essential hypertension, benign (CMS/HCC)- Primary Essential hypertension, benign Migraine without aura, not intractable, without status migrainosus (CMS/HCC) Spondylosis of lumbar region without myelopathy or radiculopathy Major depressive disorder, recurrent episode, mild degree (HCC) (CMS/HCC) Major depressive disorder, recurrent episode, mild Gastroesophageal reflux disease without esophagitis Esophageal reflux documented in this encounter [facility]* Diagnosis Migraine without aura, not intractable, without status migrainosus (CMS/HCC) documented in this encounter [facility]* Diagnosis Essential hypertension, benign (CMS/HCC)- Primary Essential hypertension, benign Status post left hip replacement Major depressive disorder, recurrent episode, mild degree (HCC) (CMS/HCC) Major depressive disorder, recurrent episode, mild Generalized anxiety disorder (CMS/HCC) Generalized anxiety disorder Osteoporosis, 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 Gastroesophageal reflux disease without esophagitis Esophageal reflux Migraine without aura, not intractable, without status migrainosus (CMS/HCC)- Primary Overflow incontinence of urine Overflow incontinence Vision changes Cerebrovascular accident (CVA), unspecified mechanism (CMS/HCC) Essential hypertension, benign (CMS/HCC)- Primary Essential hypertension, benign Migraine without aura, not intractable, without status migrainosus (CMS/HCC) Spondylosis of lumbar region without myelopathy or radiculopathy Major depressive disorder, recurrent episode, mild degree (HCC) (CMS/HCC) Major depressive disorder, recurrent episode, mild Gastroesophageal reflux disease without esophagitis Esophageal reflux Migraine without aura, not intractable, without status migrainosus (CMS/HCC) documented in this encounter [facility]* Diagnosis Essential hypertension, benign (CMS/HCC)- Primary Essential hypertension, benign Status post left hip replacement Major depressive disorder, recurrent episode, mild degree (HCC) (CMS/HCC) Major depressive disorder, recurrent episode, mild Generalized anxiety disorder (CMS/HCC) Generalized anxiety disorder Osteoporosis, 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 Gastroesophageal reflux disease without esophagitis Esophageal reflux Migraine without aura, not intractable, without status migrainosus (CMS/HCC)- Primary Overflow incontinence of urine Overflow incontinence Vision changes Cerebrovascular accident (CVA), unspecified mechanism (CMS/HCC) Essential hypertension, benign (CMS/HCC)- Primary Essential hypertension, benign Migraine without aura, not intractable, without status migrainosus (CMS/HCC) Spondylosis of lumbar region without myelopathy or radiculopathy Major depressive disorder, recurrent episode, mild degree (HCC) (CMS/HCC) Major depressive disorder, recurrent episode, mild Gastroesophageal reflux disease without esophagitis Esophageal reflux DDD (degenerative disc disease), lumbar Degeneration of lumbar or lumbosacral intervertebral disc documented in this encounter [facility]* Diagnosis Essential hypertension, benign (CMS/HCC)- Primary Essential hypertension, benign Status post left hip replacement Major depressive disorder, recurrent episode, mild degree (HCC) (CMS/HCC) Major depressive disorder, recurrent episode, mild Generalized anxiety disorder (CMS/HCC) Generalized anxiety disorder Osteoporosis, 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 Gastroesophageal reflux disease without esophagitis Esophageal reflux Migraine without aura, not intractable, without status migrainosus (CMS/HCC)- Primary Overflow incontinence of urine Overflow incontinence Vision changes Cerebrovascular accident (CVA), unspecified mechanism (CMS/HCC) Essential hypertension, benign (CMS/HCC)- Primary Essential hypertension, benign Migraine without aura, not intractable, without status migrainosus (CMS/HCC) Spondylosis of lumbar region without myelopathy or radiculopathy Major depressive disorder, recurrent episode, mild degree (HCC) (CMS/HCC) Major depressive disorder, recurrent episode, mild Gastroesophageal reflux disease without esophagitis Esophageal reflux Medicare annual wellness visit, subsequent- Primary documented in this encounter [facility]* Diagnosis DDD (degenerative disc disease), lumbar Degeneration of lumbar or lumbosacral intervertebral disc documented in this encounter [facility]* Diagnosis Migraine without aura, not intractable, without status migrainosus (CMS/HCC)- Primary Overflow incontinence of urine Overflow incontinence Vision changes Cerebrovascular accident (CVA), unspecified mechanism (CMS/HCC) documented in this encounter [facility]* Diagnosis Essential hypertension, benign (CMS/HCC)- Primary Essential hypertension, benign Status post left hip replacement Major depressive disorder, recurrent episode, mild degree (HCC) (CMS/HCC) Major depressive disorder, recurrent episode, mild Generalized anxiety disorder (CMS/HCC) Generalized anxiety disorder Osteoporosis, 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 Gastroesophageal reflux disease without esophagitis Esophageal reflux Migraine without aura, not intractable, without status migrainosus (CMS/HCC)- Primary Overflow incontinence of urine Overflow incontinence Vision changes Cerebrovascular accident (CVA), unspecified mechanism (CMS/HCC) Essential hypertension, benign (CMS/HCC)- Primary Essential hypertension, benign Migraine without aura, not intractable, without status migrainosus (CMS/HCC) Spondylosis of lumbar region without myelopathy or radiculopathy Major depressive disorder, recurrent episode, mild degree (HCC) (CMS/HCC) Major depressive disorder, recurrent episode, mild Gastroesophageal reflux disease without esophagitis Esophageal reflux Medicare annual wellness visit, subsequent- Primary Migraine without aura, not intractable, without status migrainosus (CMS/HCC) [facility] Consultation (Routine) - Authorized Specialty Diagnoses / Procedures Referred By Altagracia yuen Referred To Contact Orthopaedic Surgery Diagnoses Pain from implanted hardware, initial encounter Jr. Kaylan Stewart DO [address] [facility] [address] [place] [address] Aristeo George MD [address] [facility] [address] [place] [address] Referral ID Status Reason Start Date Expiration Date Visits Requested Visits Authorized [id number] Authorized Specialty Services Required 12/01/2023 05/29/2024 1 1 [facility] Summary Purpose Family History No Family History [...] section and content) DATE CREATED AUTHOR 11/11/2019 [facility] DATE CREATED AUTHOR AUTHOR'S ORGANIZ ATION 02/01/2023 [facility] DATE CREATED AUTHOR AUTHOR'S ORGANIZ ATION 02/24/2023 [facility] DATE CREATED AUTHOR AUTHOR'S ORGANIZ ATION 02/24/2024 [facility] DATE CREATED AUTHOR AUTHOR'S ORGANIZ ATION 04/05/2024 [facility] DATE CREATED AUTHOR AUTHOR'S ORGANIZ ATION 07/06/2024 [facility] DATE CREATED AUTHOR AUTHOR'S ORGANIZ ATION 10/14/2024 [facility] EPIC Source Comments (unrecognize d section and content) In the event this informatio n is protected by the Federal Confidentiality of Alcohol and Drug Abuse Patient Records regulations: The Federal rules restrict any use of the information to criminally investigate or prosecute any alcohol or drug abuse patient.[facility] the event this information is protected by the Federal Confidentiality of Alcohol and Drug Abuse Patient Records regulations: The Federal rules restrict any use of the information to criminally investigate or prosecute any alcohol or drug abuse patient.[facility] the event this information is protected by the Federal Confidentiality of Alcohol and Drug Abuse Patient Records regulations: The Federal rules restrict any use of the information to criminally investigate or prosecute any alcohol or drug abuse patient.[facility] the event this information is protected by the Federal Confidentiality of Alcohol and Drug Abuse Patient Records regulations: The Federal rules restrict any use of the information to criminally investigate or prosecute any alcohol or drug abuse patient.[facility] the event this information is protected by the Federal Confidentiality of Alcohol and Drug Abuse Patient Records regulations: The Federal rules restrict any use of the information to criminally investigate or prosecute any alcohol or drug abuse patient.[facility] the event this information is protected by the Federal Confidentiality of Alcohol and Drug Abuse Patient Records regulations: The Federal rules restrict any use of the information to criminally investigate or prosecute any alcohol or drug abuse patient.[facility] the event this information is protected by the Federal Confidentiality of Alcohol and Drug Abuse Patient Records regulations: The Federal rules restrict any use of the information to criminally investigate or prosecute any alcohol or drug abuse patient.[facility] the event this information is protected by the Federal Confidentiality of Alcohol and Drug Abuse Patient Records regulations: The Federal rules restrict any use of the information to criminally investigate or prosecute any alcohol or drug abuse patient.[facility] the event this information is protected by the Federal Confidentiality of Alcohol and Drug Abuse Patient Records regulations: The Federal rules restrict any use of the information to criminally investigate or prosecute any alcohol or drug abuse patient.[facility] the event this information is protected by the Federal Confidentiality of Alcohol and Drug Abuse Patient Records regulations: The Federal rules restrict any use of the information to criminally investigate or prosecute any alcohol or drug abuse patient.[facility] the event this information is protected by the Federal Confidentiality of Alcohol and Drug Abuse Patient Records regulations: The Federal rules restrict any use of the information to criminally investigate or prosecute any alcohol or drug abuse patient.[facility] the event this information is protected by the Federal Confidentiality of Alcohol and Drug Abuse Patient Records regulations: The Federal rules restrict any use of the information to criminally investigate or prosecute any alcohol or drug abuse patient.[facility] HospitalIn the event this information is protected by the [facility] Confidentiality of Alcohol and Drug Abuse Patient Records regulations: The Federal rules restrict any use of the information to criminally investigate or prosecute any alcohol or drug abuse patient.[facility] the event this information is protected by the Federal Confidentiality of Alcohol and Drug Abuse Patient Records regulations: The Federal rules restrict any use of the information to criminally investigate or prosecute any alcohol or drug abuse patient.[facility] Reason for Visit (unrecogniz ed section and content) Reason Comments Thrombocytopenia Reason Comments thrombocythemia Reason Comments B-12 Injection Reason Comments Essential thrombocythemia Follow up Reason Comments Essential thrombocythemia Reason Comments essentail thrombocythemia Reason Comments Pain Reason Comments Lab Orders Reason Comments Med Refill Reason Onset Date Comments Med Refill 08/02/2024 Reason Comments Follow-up 1m Reason Onset Date Comments Med Refill 08/29/2024 Reason Onset Date Comments Med Refill 10/02/2024 Reason Comments Records faxed Reason Comments Medicare Annual Wellness Visit Subsequen t wellness Reason Onset Date Comments Med Refill 06/30/2024 Reason Comments Follow-up /H Hospital f/up Reason Onset Date Comments Med Refill 10/19/2024 Care Teams (unrecognized sec tion and content) Heel Shaper Relationship Specialty Start Date End Date Kady Tito Lopez PCP - General Family Practice 06/01/16 Heel Shaper Relationship Specialty Start Date End Date Tito Hillman PCP - General Family Practice 06/01/16 Heel Shaper Relationship Specialty Start Date End Date Tito Hillman PCP - General Family Practice 06/01/16 Heel Shaper Relationship Specialty Start Date End Date DahliamelanieTito ornelas PCP - General Family Practice 06/01/16 Heel Shaper Relationship Specialty Start Date End Date Tito Hillman PCP - General Family Medicine 06/01/16 Heel Shaper Relationship Specialty Start Date End Date Tito Hillman PCP - General Family Medicine 06/01/16 Heel Shaper Relationship Specialty Start Date End Date Tito Hillman PCP - General Family Medicine 06/01/16 Heel Shaper Relationship Specialty Start Date End Date Tito Hillman PCP - General Family Medicine 06/01/16 Heel Shaper Relationship Specialty Start Date End Date Tito Hillman PCP - General Family Medicine 06/01/16 Heel Shaper Relationship Specialty Start Date End Date Tito Hillman PCP - General Family Medicine 06/01/16 Heel Shaper Relationship Specialty Start Date End Date Tito Hillman MD [address] [place] [address] PCP - General Family Medicine 11/23/23 Heel Shaper Relationship Specialty Start Date End Date Tito Hillman PCP - General Family Medicine 06/01/16 Heel Shaper Relationship Specialty Start Date End Date Tito Hillman MD [address] [place] [address] PCP - General Family Medicine 11/23/23 Heel Shaper Relationship Specialty Start Date End Date Tito Hillman MD [address] [place] [phone] PCP - General Family Medicine 11/23/23 Heel Shaper Relationship Specialty Start Date End Date Tito Hillman MD [address] [place] [phone] PCP - General Family Medicine 11/23/23 Heel Shaper Relationship Specialty Start Date End Date Tito Hillman MD [address] [place] [address] PCP - General Family Medicine 11/23/23 Heel Shaper Relationship Specialty Start Date End Date Tito Hillman MD [address] [place] [address] PCP - General Family Medicine 11/23/23 Heel Shaper Relationship Specialty Start Date End Date Tito Hillman MD [address] [place] [address] PCP - General Family Medicine 11/23/23 Heel Shaper Relationship Specialty Start Date End Date Tito Hillman MD [address] [place] [phone] PCP - General Family Medicine 11/23/23 Heel Shaper Relationship Specialty Start Date End Date Tito Hillman PCP - General Family Medicine 06/01/16 Heel Shaper Relationship Specialty Start Date End Date Tito Hillman MD [address] [place] [phone] PCP - General Family Medicine 11/23/23 Heel Shaper Relationship Specialty Start Date End Date Tito Hillman MD [address] [place] [phone] PCP - General Family Medicine 11/23/23 Heel Shaper Relationship Specialty Start Date End Date Tito Hillman MD [address] [place] [phone] PCP - General Family Medicine 11/23/23 Heel Shaper Relationship Specialty Start Date End Date Tito Hillman MD [address] [place] [phone] PCP - General Family Medicine 11/23/23 Heel Shaper Relationship Specialty Start Date End Date Tito Hillman MD [address] [place] [phone] PCP - General Family Medicine 11/23/23 Heel Shaper Relationship Specialty Start Date End Date Tito Hillman MD [address] [place] [address] PCP - General Family Medicine 11/23/23 FOR RECORDS PERTAINING TO PATIENTS WHO ARE [...] BE BASED ON THE PRIMARY CLINICAL RECORDS. [facility] provides no warranty or guarantee of the accuracy or completeness of information in this document.
== END 2024-10-26 12:54 | disposition home or self-care (01) ==
PROVIDERS: PCP Physician Assistant; Visit Provider Physician Assistant
DX: R09.89 Other specified symptoms and signs involving the circulatory and respiratory systems (principal)
CPT/HCPCS: 93923

== ENCOUNTER 2024-10-31 07:34 | Outpatient (RCR) | payer MEDICARE, OTHER, SELFPAY ==
[2024-10-03 12:48] LABS: Basophils Absolute Auto 0.1 10^3/uL (0.0-0.1); Eosinophils Absolute Auto 0.1 10^3/uL (0.0-0.7); Hematocrit 40.2 % (36.0-48.0); Immature Granulocytes Abs Auto 0.01 10^3/uL (0.00-0.03); Immature Granulocytes Pct Auto 0.2 % (0.0-0.5); Lymphocytes Absolute Auto 1.3 10^3/uL (1.2-3.8); Lymphocytes Percent Auto 25.3 % (20.5-60.0); Mean Corpuscular HGB Conc 34.8 g/dL (29.9-35.2); Mean Corpuscular Hemoglobin 44.6 pg (26.7-34.0); Mean Platelet Volume 10.1 fL (9.5-13.5); Monocytes Absolute Auto 0.4 10^3/uL (0.3-0.8); Monocytes Percent Auto 7.3 % (1.7-12.0); Neutrophils Absolute Auto 3.2 10^3/uL (1.4-6.5); Neutrophils Percent Auto 65.2 % (43.0-75.0); Platelet Count 377 10^3/uL (150-450); Red Blood Count 3.14 10^6/uL (4.20-5.40); Red Cell Distribution Width 14.2 % (11.0-15.0)
[2024-10-03 12:58] LABS: Erythrocyte Sedimentation Rate 4 mm/hr (<=30)
[2024-10-03 13:03] LABS: Alanine Aminotransferase 15 U/L (14-59); Albumin Globulin Ratio 1.3; Albumin Level 4.3 g/dL (3.4-5.0); Alkaline Phosphatase 76 U/L (46-116); Anion Gap 16.5; Aspartate Amino Transferase 14 U/L (15-37); BUN Creatinine Ratio 10.5; Bilirubin Total 0.4 mg/dL (0.2-1.0); C Reactive Protein <0.50 mg/dL (<=0.50); Calcium 9.1 mg/dL (8.5-10.1); Carbon Dioxide 23.5 mmol/L (21.0-32.0); Chloride 105 mmol/L (98-107); Estimated GFR (African America >60 (>=60 mL/min/1.73m^2); Estimated GFR (Non-African Ame 50 (>=60 mL/min/1.73m^2); Globulin 3.2 g/dL; Glucose 111 mg/dL (74-106); Sodium 141 mmol/L (136-145); Total Protein 7.5 g/dL (6.4-8.2)
[2024-10-04 04:10] LABS: Vitamin B12 1001 pg/mL (232-1245)
[2024-10-10 10:57] VITALS: BP 170/71; PULSE 68; TEMP 36.6; O2SAT 98
[2024-10-10] MEDS: CYANOCOBALAMIN 1,000 MCG/ML VIAL 1000 MCG IM (11:00)
== END 2024-10-31 23:59 | disposition home or self-care (01) ==
LOC: HEMC 07:34
PROVIDERS: PCP Family Medicine; Visit Provider Internal Medicine Hematology & Oncology
DX: D51.9 Vitamin B12 deficiency anemia, unspecified (principal); D47.3 Essential (hemorrhagic) thrombocythemia; D64.9 Anemia, unspecified; D72.829 Elevated white blood cell count, unspecified; F17.290 Nicotine dependence, other tobacco product, uncomplicated; Z86.73 Personal history of transient ischemic attack (TIA), and cerebral infarction without residual deficits
CPT/HCPCS: 36415; 80053; 82607; 82728; 82746; 83540; 83550; 85025; 85652; 86140; 96372; G0463; J3420

== ENCOUNTER 2024-11-28 07:38 | Outpatient (RCR) | payer MEDICARE, OTHER, SELFPAY ==
[2024-11-07 10:50] VITALS: BP 171/76; PULSE 61; TEMP 36.4; O2SAT 99
[2024-11-07] MEDS: CYANOCOBALAMIN 1,000 MCG/ML VIAL 1000 MCG IM (11:17)
[2024-11-14 12:25] LABS: Basophils Absolute Auto 0.1 10^3/uL (0.0-0.1); Basophils Percent Auto 1.2 % (0.2-2.0); Hemoglobin 12.4 g/dL (12.0-16.0); Immature Granulocytes Abs Auto 0.01 10^3/uL (0.00-0.03); Immature Granulocytes Pct Auto 0.2 % (0.0-0.5); Lymphocytes Absolute Auto 1.5 10^3/uL (1.2-3.8); Lymphocytes Percent Auto 35.4 % (20.5-60.0); Mean Corpuscular HGB Conc 33.5 g/dL (29.9-35.2); Mean Corpuscular Hemoglobin 43.7 pg (26.7-34.0); Mean Corpuscular Volume 130.3 fL (81.0-99.0); Mean Platelet Volume 10.4 fL (9.5-13.5); Monocytes Absolute Auto 0.4 10^3/uL (0.3-0.8); Monocytes Percent Auto 9.5 % (1.7-12.0); Neutrophils Absolute Auto 2.2 10^3/uL (1.4-6.5); Neutrophils Percent Auto 52.7 % (43.0-75.0); Platelet Count 215 10^3/uL (150-450); Red Blood Count 2.84 10^6/uL (4.20-5.40); Red Cell Distribution Width 14.3 % (11.0-15.0); White Blood Count 4.1 10^3/uL (4.0-11.0)
[2024-11-14 12:35] LABS: Alanine Aminotransferase 11 U/L (14-59); Albumin Globulin Ratio 1.3; Alkaline Phosphatase 70 U/L (46-116); Anion Gap 12.6; Aspartate Amino Transferase 11 U/L (15-37); BUN Creatinine Ratio 15.8; Bilirubin Total 0.5 mg/dL (0.2-1.0); C Reactive Protein <0.50 mg/dL (<=0.50); Calcium 8.4 mg/dL (8.5-10.1); Carbon Dioxide 24.7 mmol/L (21.0-32.0); Chloride 106 mmol/L (98-107); Estimated GFR (African America >60 (>=60 mL/min/1.73m^2); Estimated GFR (Non-African Ame 56 (>=60 mL/min/1.73m^2); Glucose 87 mg/dL (74-106); Lactate Dehydrogenase 195 U/L (81-234); Potassium 4.3 mmol/L (3.5-5.1); Sodium 139 mmol/L (136-145)
[2024-11-14 12:40] LABS: Erythrocyte Sedimentation Rate 2 mm/hr (<=30)
[2024-11-14 12:47] LABS: Percent Iron Saturation 40.9 %
[2024-11-14 13:03] LABS: Bilirubin Urine NEGATIVE (NEGATIVE); Blood Urine TRACE-I (NEGATIVE); Clarity Urine CLEAR (CLEAR); Color Urine LT. YELLOW (YELLOW); Glucose Urine UA NEGATIVE (NEGATIVE); Ketones Urine NEGATIVE (NEGATIVE); Leukocyte Esterase Urine NEGATIVE (NEGATIVE); Nitrite Urine NEGATIVE (NEGATIVE); Protein Urine NEGATIVE (NEG/TRACE); Urobilinogen Urine 0.2 EU/dL (0.2-1.0)
[2024-11-28 10:45] VITALS: PULSE 77; TEMP 36.3; O2SAT 95
[2024-11-28] MEDS: CYANOCOBALAMIN 1,000 MCG/ML VIAL 1000 MCG IM (10:57)
== END 2024-11-29 11:10 | disposition home or self-care (01) ==
LOC: HEMC 07:38
PROVIDERS: PCP Family Medicine; Visit Provider Internal Medicine Hematology & Oncology
DX: D47.3 Essential (hemorrhagic) thrombocythemia (principal); D64.9 Anemia, unspecified; D72.829 Elevated white blood cell count, unspecified; D51.9 Vitamin B12 deficiency anemia, unspecified; F17.290 Nicotine dependence, other tobacco product, uncomplicated; Z90.49 Acquired absence of other specified parts of digestive tract; Z90.710 Acquired absence of both cervix and uterus; Z95.5 Presence of coronary angioplasty implant and graft; Z96.642 Presence of left artificial hip joint; R82.998 Other abnormal findings in urine
CPT/HCPCS: 36415; 80053; 81003; 82728; 83540; 83550; 83615; 85025; 85652; 86140; 87086; 96372; G0463; J3420

== ENCOUNTER 2024-12-06 11:43 | Outpatient (OUT) | payer MEDICARE, OTHER, SELFPAY | END 2024-12-06 11:44 | disposition home or self-care (01) | LOC: WC 12-19 11:44 | PROVIDERS: PCP Physician Assistant; Visit Provider Physician Assistant | DX: L60.3 Nail dystrophy (principal); L97.512 Non-pressure chronic ulcer of other part of right foot with fat layer exposed | CPT/HCPCS: G0463 ==

== ENCOUNTER 2024-12-12 07:31 | Outpatient (RCR) | payer MEDICARE, OTHER, SELFPAY ==
[2024-12-12 09:20] VITALS: BP 171/72; PULSE 66; TEMP 36; O2SAT 100
[2024-12-12 10:25] LABS: Basophils Absolute Auto 0.1 10^3/uL (0.0-0.1); Basophils Percent Auto 0.5 % (0.2-2.0); Eosinophils Absolute Auto 0.1 10^3/uL (0.0-0.7); Eosinophils Percent Auto 0.9 % (0.9-7.0); Hemoglobin 13.2 g/dL (12.0-16.0); Immature Granulocytes Abs Auto 0.08 10^3/uL (0.00-0.03); Immature Granulocytes Pct Auto 0.8 % (0.0-0.5); Lymphocytes Absolute Auto 1.7 10^3/uL (1.2-3.8); Lymphocytes Percent Auto 17.7 % (20.5-60.0); Mean Corpuscular Volume 127.4 fL (81.0-99.0); Mean Platelet Volume 10.6 fL (9.5-13.5); Monocytes Absolute Auto 0.7 10^3/uL (0.3-0.8); Monocytes Percent Auto 7.3 % (1.7-12.0); Neutrophils Absolute Auto 7.2 10^3/uL (1.4-6.5); Neutrophils Percent Auto 72.8 % (43.0-75.0); Platelet Count 835 10^3/uL (150-450); Red Cell Distribution Width 13.2 % (11.0-15.0); White Blood Count 9.8 10^3/uL (4.0-11.0)
[2024-12-12] MEDS: CYANOCOBALAMIN 1,000 MCG/ML VIAL 1000 MCG IM (10:35)
[2024-12-12 10:36] LABS: Red Blood Count 3.14 10^6/uL (4.20-5.40)
[2024-12-13 03:08] LABS: Vitamin B12 805 pg/mL (232-1245)
== END 2024-12-29 23:59 | disposition home or self-care (01) ==
LOC: HEMC 07:31
PROVIDERS: PCP Physician Assistant; Visit Provider Internal Medicine Hematology & Oncology
DX: D47.3 Essential (hemorrhagic) thrombocythemia (principal); D64.9 Anemia, unspecified; D72.829 Elevated white blood cell count, unspecified; D51.9 Vitamin B12 deficiency anemia, unspecified; Z90.49 Acquired absence of other specified parts of digestive tract; Z95.5 Presence of coronary angioplasty implant and graft; F17.290 Nicotine dependence, other tobacco product, uncomplicated; Z90.710 Acquired absence of both cervix and uterus; Z90.722 Acquired absence of ovaries, bilateral
CPT/HCPCS: 36415; 82607; 82746; 85025; 96372; G0463; J3420

== ENCOUNTER 2024-12-23 14:59 | Emergency (ER) | payer MEDICARE, OTHER, SELFPAY ==
[2024-12-23] VITALS (15 sets, daily range): BP systolic 139–188; BP diastolic 68–103; PULSE 62–71; TEMP 36.4; O2SAT 98–100; BMI 16.6
--- OUTSIDE RECORDS SUMMARY | 2024-12-23 15:09 | XMS_ITS | CCD ---
Author Organization [facility] Care Team Providers Care [employer] Supervisor Name Role Phone DESTINEE SMART Admitting Unavailable DESTINEE SMART Attending Unavailable UNKNOWN, PHYSICIAN Referring Unavailable UNKNOWN, PHYSICIAN Primary Care Unavailable Kady, Tiot Lopez Primary Care Provider [phone] Naderer, Tito Lopez Primary Care Provider Naderer, Tito Lopez Primary Care Provider [phone] NADTOSHIA, DR TITO Lopez Primary Care Unavailable [...] TITO Lopez Primary Care Unavailable NADERER, DR ITTO Lopez Consulting Unavailable NADERER, DR TITO Lopez Primary Care Unavailable JULIANA PRAKASH Admitting Unavailable HALEY .JULIANA Attending Unavailable JOCELYN, DR LUZ Ornelas Consulting Unavailable HALEY ., JULIANA Consulting Unavailable LINA DOE Attending Unavailable Tito Hillman MD Primary Care Provider [phone] ARISTEO GEORGE Referring Unavailable VEGAS, GAEL Primary Care Unavailable BOFRANKLIN, ARISTEO Kapadia Referring Unavailable VEGAS, GAEL Primary Care Unavailable MICHAEL CONNOR Attending Unavailable JAMAL MAYERS Admitting Unavailable VEGAS, GAEL Primary Care Unavailable ARISTEO GEORGE Consulting Unavailable ASLAM, CARLOS Consulting Unavailable Naderer, Tito A Primary Care Provider [phone] KADY, TITO Lopez Primary Care Unavailable ABHYANKAR, [...] Attending Unavailable VEGAS, GAEL Morris Attending Unavailable ASCENCION, GAEL Morris Referring Unavailable NadTito kruger MD Unavailable Allergies Allergy Classification Reported Allergen(s) Allergy Type Date of Onset Reaction(s) Facility Opioid Agonists (1 source) Morphine; Translations: [MORPHINE] Drug Allergy 4 [facility] Repository sulfaSALAzine (1 source) sulfaSALAzine; Translations: [SULFASALAZINE] Drug Allergy 4 [facility] Repository Sulfonamides (antibiotic) (1 source) Sulfonamides (Antibiotic); Translations: [SULFA (SULFONAMIDE ANTIBIOTICS)] Drug Allergy 5 [facility] Repository Sulfur (1 source) Sulfur; Translations: [SULFUR] Drug Allergy 4 [facility] Repository (20 sources) Morphine; Translations: [MORPHINE] Drug Allergy 4 Unknown, Rash, GI intolerance [facility] (15 sources) sulfaSALAzine; Translations: [SULFASALAZINE] Drug Allergy 4 Unknown [facility] (20 sources) Sulfonamides (Antibiotic); Translations: [SULFA (SULFONAMIDE ANTIBIOTICS)] Drug Allergy 4 Unknown, Swelling, Rash [facility] (15 sources) Sulfur; Translations: [SULFUR] Drug Allergy 4 Unknown [facility] (1 source) Morphine Drug Allergy 6 [facility] Repository (1 source) Sulfonamides (Antibiotic) Drug allergy (disorder) 6 [facility] Repository (20 sources) Ciprofloxacin Drug Allergy 2 Hallucinations [facility] Medications Current Medications Medication Drug Class(es) Dates Sig (Normalized) Sig (Original) acetaminophen 325 mg / butalbital 50 mg / caffeine 40 mg oral tablet (20 sources) Barbiturate, Central Nervous System Stimulant, Methylxanthine Start: 12-15-2024 take 1 tablet by mouth four times daily as needed butalbital-acetam inophen-caffeine 50-325-40 MG tablet Indications: Migraine without aura, not intractable, without status migrainosus (CMS/HCC) Take 1 tablet by mouth 4 (four) times a day as needed for migraine 30 tablet 1 12/15/2024 Active Start: 11-06-2024 End: 12-15-2024 take 1 tablet by mouth four times daily as needed iluaklbgzi-vznpxlybrefdo-ykgzzatz 50-325 -40 MG tablet Indications: Migraine without aura, not intractable, without status migrainosus (CMS/HCC) Take 1 tablet by mouth 4 (four) times a day as needed for migraine 30 tablet 1 11/06/2024 12/15/2024 Discontinued Start: 10-19-2024 take 1 tablet by mouth four times daily as needed bopzeyaent-rxlvbfphfubsn-zlorlsht 50-325 -40 MG tablet Indications: Migraine without aura, not intractable, without status migrainosus (CMS/HCC) TAKE 1 TABLET BY MOUTH FOUR TIMES DAILY NEEDED 30 tablet 1 10/19/2024 Active Start: 09-13-2024 take 1 tablet by mouth four times daily as needed gozqthwrbl-iphaohassuvdv-oecpwtaz 50-325 -40 MG tablet Indications: Migraine without aura, not intractable, without status migrainosus (CMS/HCC) TAKE 1 TABLET BY MOUTH FOUR TIMES DAILY NEEDED 30 tablet 1 09/13/2024 Active Start: 07-14-2024 take 1 tablet by mouth four times daily as needed for headache phtqzilypi-cnshacfjtulvf-jxygqvps 50-325 -40 MG tablet Indications: Migraine without aura, not intractable, without status migrainosus (CMS/HCC) TAKE 1 TABLET BY MOUTH FOUR TIMES DAILY NEEDED FOR HEADACHE 30 tablet 07/14/2024 Active Start: 07-06-2024 End: 09-13-2024 take 1 tablet by mouth four times daily as needed qbuuqnnkmq-bupfjcqqxxzek-hjjohkhh 50-325 -40 MG tablet Indications: Migraine without aura, not intractable, without status migrainosus (CMS/HCC) TAKE 1 TABLET BY MOUTH FOUR TIMES DAILY NEEDED 30 tablet 1 09/13/2024 Active acetaminophen 325 mg / HYDROcodone bitartrate 5 mg oral tablet (20 sources) Opioid Agonist Start: 05-31-2024 End: 01-03-2025 take 1 tablet by mouth four times daily as needed for pain HYDROcodone-acetaminophen ([place]) 5-325 MG tablet Indications: DDD (degenerative disc disease), lumbar Take 1 tablet by mouth 4 (four) times a day as needed for severe pain 120 tablet 12/04/2024 01/03/2025 Active Start: 11-29-2023 End: 12-29-2023 take 1 tablet by mouth four times daily as needed for pain HYDROcodone-acetaminophen ([place]) 5-325 MG tablet Indications: DDD (degenerative disc [...] ely th every 6 hours as needed. [id number] 200 actuat albuterol 0.09 mg/actuat metered dose [...] Start: 03-25-2017 take 1 tablet by ely th once daily at bedtime atorvastatin (LIPITOR) 20 mg tablet Take 20 mg by mouth daily at bedtime. 3 03/25/2017 Active Comment on above: Take 20 mg by mouth daily at bedtime. busPIRone hydrochloride 7.5 mg oral tablet (14 sources) Start: 11-03-19 21 take 1 tablet by mouth twice daily busPIRone (BUSPAR) 7.5 mg tablet Take 7.5 mg by mouth twice daily. 0 11/03/2020 Active Comment on above: Take 7.5 mg by mouth twice daily. celecoxib 100 mg oral capsule (20 sources) Nonsteroidal Anti-inflammatory Drug Start: 10-12-20 End: 12-04-19 take 1 capsule by mouth twice daily at bedtime celecoxib (CeleBREX) 100 MG capsule Indications: Lumbar spondylosis TAKE 1 CAPSULE BY MOUTH TWICE DAILY (IN THE MORNING and BEFORE bedtime) 30 capsule 5 12/04/2024 Active Start: 07-24-2024 take 1 capsule by mo uth twice [...] 1 TABLET BY MOUTH DAILY 30 tablet 07/24/2024 Active Start: 01-24-2024 take 1 tablet by ely once daily famotidine (Pepcid) 40 MG tablet [...] mg oral capsule (20 sources) Antimetabolite Start: take 1 capsule by mouth once daily hydroxyurea (Hydrea) 500 MG capsule Indications: Essential (hemorrhagic) thrombocythemia (CMS/HCC) TAKE 1 CAPSULE BY MOUTH DAILY 90 capsule 5 07/24/2024 Active take 1 capsule by mouth [...] hr tablet Indications: 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) TAKE [...] tablet (20 sources) Angiotensin Converting Enzyme Inhibitor Start: 5 End: 6 take 1 tablet by mouth once daily lisinopril 5 MG tablet Indications: Essential hypertension, benign (CMS/HCC) Take 1 tablet (5 mg) by mouth Daily 90 tablet 3 12/05/2024 12/05/2025 Active Comment on above: Take 5 mg [...] chloride 10 mg extended release oral tablet (20 sources) Cholinergic Muscarinic Antagonist Start: 12-12-19 25 take 1 tablet by mouth once daily oxybutynin XL (Ditropan-XL) 10 MG 24 hr tablet Indications: Overflow incontinence of urine TAKE 1 TABLET BY MOUTH DAILY DO NOT CRUSH, CHEW, OR SPLIT 30 tablet 5 12/12/2024 Active Start: 07-06-2024 take 1 tablet by ely th once daily oxybutynin XL (Ditropan XL) 10 [...] (20 sources) Serotonin Reuptake Inhibitor Start: 10-12-20 take 1 tablet by mouth once daily [...] TH NIGHTLY SUMAtriptan 50 mg oral tablet (20 sources) Serotonin-1b and Serotonin-1d Receptor Agonist Start: [...] 50 mg oral tablet (20 sources) Start: 12-12-2024 take 1 tablet by mouth twice daily at bedtime topiramate 50 MG tablet Indications: Migraine without aura, not intractable, without status migrainosus (CMS/HCC) TAKE 1 TABLET BY MOUTH TWICE DAILY (IN THE MORNING and BEFORE bedtime) 60 tablet 3 12/12/2024 Active Start: 08-03-2024 take 1 tablet by ely th in the morning topiramate (Topamax) 50 MG [...] vitamin b12 1 mg/ml injectab le solution (20 sources) Vitamin B12 Cyanocobalamin ( B-12 Compliance [...] disease (20 sources) Atherosclerotic heart disease of 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; Translations: [OTH CORRECTION CURRENT DRUG THERAPY] Onset: 05-07-2022 Episodic Other [...] headaches] Onset: 01-18-2018 01-18-2018 Episodic Mood disorders (7 sources) Mood disorders Onset: 10-11-2024 10-11-2024 Nonmalignant breast conditions (5 sources) Unspecified lump in unspecified breast; Translations: [Mastodynia] Onset: 02-09-2022 Episodic Other aftercare (1 source) [facility] (current) use of aspirin; Translations: [CORRECTION CURRENT USE OF ASPIRIN] Onset: 08-25-2022 Episodic [...] specified; Translations: [UTI SITE NOT SPECIFIED] Onset: 09-27-2022 Episodic Results Test Name Value Interpretation Reference Range Facility ALL C REACTIVE PROTEINon CRP [Mass/Vol] mg/L NINF - 0.50 mg/dL [facility] ALL LDHon 11-14-2024 LDH [Catalytic activity/Vol] 195 U/L 81 - 234 U/L [facility] CMP (CMP) (FOR REMOTE FH C USE)on 11-14-2024 Albumin [Mass/Vol] 4 g/dL 3.4 - 5.0 g/dL NO [facility] ALBUMIN GLOBULIN RATIO 1.3 [facility] ALP [Catalytic activity/Vol] 70 U/L 46 - 116 U/L [facility] ALT [Catalytic activity/Vol] 11 U/L Low 14 - 59 U/L [facility] Anion gap [Moles/Vol] 12.6 mmol/L [facility] AST [Catalytic activity/Vol] 11 U/L Low 15 - 37 U/L [facility] Bilirubin [Mass/Vol] 0.5 mg/dL 0.2 - 1.0 mg/dL [facility] Calcium [Mass/Vol] 8.4 mg/dL Low 8.5 - 10. 1 mg/dL [facility] Chloride [Moles/Vol] 106 mmol/L 98 - 107 mmol/L [facility] CO2 [Moles/Vol] 24.7 mmol/L 21.0 - 32.0 mmol/L [facility] Creatinine [Mass/Vol] 0.95 mg/dL 0.55 - 1.02 mg/dL [facility] GFR/1.73 sq M.predicted CKD-EPI (S/P/Bld) [Vol rate/Area] >60 >=60 mL/min/1.73m 2 [facility] Globulin (S) [Mass/Vol] 3 g/dL [facility] Glucose [Mass/Vol] 87 mg/dL 74 - 106 mg/dL NO [facility] Interpretation and review of laboratory results Abnormal [facility] Potassium [Moles/Vol] 4.3 mmol/L 3.5 - 5.1 mmol/L [facility] Protein [Mass/Vol] 7 g/dL 6.4 - 8.2 g/dL NO [facility] Sodium [Moles/Vol] 139 mmol/L 136 - 145 mmol/L [facility] TBH EGFR-NON AF [facility] LEONEAN 56 Low >=60 mL/min/1.73m 2 [facility] Urea nitrogen [Mass/Vol] 15 mg/dL 7.0 - 18.0 mg/dL [facility] Urea nitrogen/Creatinine [Mass ratio] 15.8 mg/mg [facility] No Panel Informationon 11-14 [facility] [place] ALL CBC WITH AUTO DIFFon BASOPHILS ABSOLUTE AUTO 0.1 [facility] Basophils/100 WBC (Bld) 1.3 % 0.2 - 2.0 % [facility] Eosinophils/100 WBC (Bld) 2 % 0.9 - 7.0 % [facility] Erythrocyte distribution width (RBC) [Ratio] 14.3 % 11.0 - 15.0 % [facility] Hematocrit (Bld) [Volume fraction] 39.6 % 36.0 - 48.0 % [facility] Hemoglobin (Bld) [Mass/Vol] 13.6 g/dL 12.0 - 16.0 g/dL [facility] IMMATURE GRANULOCYTES ABS AUTO 0.02 [facility] Immature granulocytes/100 WBC (Bld) 0.4 % 0.0 - 0.5 % [facility] Interpretation and review of laboratory results Abnormal [facility] LYMPHOCYTES ABSOLUTE AUTO 1.3 [facility] Lymphocytes/100 WBC (Bld) 28.2 % 20.5 - 60.0 % [facility] MCH (RBC) [Entitic mass] 43.9 pg High 26.7 - 34.[address] [facility] MCHC (RBC) [Mass/Vol] 34.3 g/dL 29.9 - 35.2 g/dL [facility] MCV (RBC) [Entitic vol] 127.7 fL High 81.0 - 99.[address] [facility] Comment on above: MACROCYTOSIS 4+ MONOCYTES ABSOLUTE AUTO 0.4 [facility] Monocytes/100 WBC (Bld) 8.8 % 1.7 - 12.0 % [facility] NEUTROPHILS ABSOLUTE AUTO 2.7 [facility] Neutrophils/100 WBC (Bld) 59.3 % 43.0 - 75.0 % [facility] Platelet mean volume (Bld) [Entitic vol] 10.2 fL 9.5 - 13.[address] [facility] TB EO # 0.1 [facility] PLT 451 High [facility] RBC 3.[address] [facility] TB WBC 4.6 [facility] No Panel Informationon 08-[address] [facility] RETICULOCYTE PCT AUTOon 10-2 RETICULOCYTE PCT AUTO 1.62 % 0.60 - 3.10 % [facility] ALL LDHon 07-14-2024 LDH [Catalytic activity/Vol] 167 U/L 81 - 234 U/L [facility] CMP (CMP) (FOR REMOTE FH C USE)on 07-14-2024 Albumin [Mass/Vol] 3.9 g/dL 3.4 - 5.0 g/dL NO [facility] ALBUMIN GLOBULIN RATIO 1.3 [facility] ALP [Catalytic activity/Vol] 90 U/L 46 - 116 U/L [facility] ALT [Catalytic activity/Vol] 14 U/L 14 - 59 U/L [facility] Anion gap [Moles/Vol] 15.7 mmol/L [facility] AST [Catalytic activity/Vol] 17 U/L 15 - 37 U/L [facility] Bilirubin [Mass/Vol] 0.5 mg/dL 0.2 - 1.0 mg/dL [facility] Calcium [Mass/Vol] 8.9 mg/dL 8.5 - 10. 1 mg/dL [facility] Chloride [Moles/Vol] 101 mmol/L 98 - 107 mmol/L [facility] CO2 [Moles/Vol] 23.6 mmol/L 21.0 - 32.0 mmol/L [facility] Creatinine [Mass/Vol] 1.37 mg/dL High 0.55 - 1.02 mg/dL [facility] GFR/1.73 sq M.predicted CKD-EPI (S/P/Bld) [Vol rate/Area] 44 Low 60 - PINF [facility] Globulin (S) [Mass/Vol] 3.1 g/dL [facility] Glucose [Mass/Vol] 130 mg/dL High 74 - 106 mg/dL NO [facility] Interpretation and review of laboratory results Abnormal [facility] Potassium [Moles/Vol] 4.3 mmol/L 3.5 - 5.1 mmol/L [facility] Protein [Mass/Vol] 7.0 g/dL 6.4 - 8.2 g/dL NO [facility] Sodium [Moles/Vol] 136 mmol/L 136 - 145 mmol/L [facility] TBH EGFR-NON AF [place] [facility] 37 Low 60 - PINF [facility] Urea nitrogen [Mass/Vol] 17.0 mg/dL 7.0 - 18.0 mg/dL [facility] Urea nitrogen/Creatinine [Mass ratio] 12.4 mg/mg [facility] No Panel Informationon 07-[address] 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] Order(s):LACTATE DEHYDROGENASE [SQLD6] Order #: [id number] FUTURE COMPLETE BLOOD COUNT AND DIFFERENTIAL [SQCBCDIF] Order #: [id number] FUTURE COMPREHENSIVE METABOLIC PANEL [SQCMP] Order #: [id number] FUTURE Prescriptions as of 04/04/2024 - QUEtiapine [...] Status:Closed by ROD ROMAN on 04/04/24 Normal [facility] XR HIP LEFT (2-3 VIEWS)on XR HIP [...] Aristeo George DO Signed by: Aristeo George, 02/23/24 Final result Normal [facility] XR HIP 2-3 VW W [...] Aristeo George DO 01/07/24 Final result Normal [facility] XR HIP 2-3 VW W [...] Aristeo George DO 12/29/23 Final result Normal [facility] CBC with Diffon 12-22-2023 Abs. Basophil 0.00 k/uL Normal 0.00-0.20 [facility] Comment on above: Performed By: #### C DP #### [place] [address] Painter And Decorator Apprentice: Ti Wlilis MD Abs.Imm.Granulocyte 0.10 k/uL Normal 0.00-0.30 [facility] Comment on above: Performed By: #### C DP #### [place] [address] Painter And Decorator Apprentice: Ti Willis MD Abs.Neutrophil (Seg) 6.92 k/uL Normal 1.50-8.10 [facility] Comment on above: Performed By: #### C DP #### [address] [address] Painter And Decorator Apprentice: Ti Willis MD Basophils/100 WBC (Bld) 0 % Normal 0-2 [facility] Comment on above: Performed By: #### C DP #### [place] [address] Painter And Decorator Apprentice: Ti Willis MD Eosinophils (Bld) [#/Vol] 0.10 10*3/uL Normal 0.00-0.44 [facility] Comment on above: Performed By: #### C DP #### [address] [address] Painter And Decorator Apprentice: Ti Willis MD Eosinophils/100 WBC (Bld) 1 % Normal 1-4 [facility] Comment on above: Performed By: #### C DP #### [address] [address] Painter And Decorator Apprentice: Ti Willis MD Immature granulocytes/100 WBC (Bld) 1 % High 0 [facility] Comment on above: Performed By: #### C DP #### [address] [address] Painter And Decorator Apprentice: Ti Willis MD Lymphocytes (Bld) [#/Vol] 1.43 10*3/uL Normal 1.10-3.70 [facility] Comment on above: Performed By: #### C DP #### [address] [address] Painter And Decorator Apprentice: Ti Willis MD Lymphocytes/100 WBC (Bld) 15 % Low 24-43 [facility] Comment on above: Performed By: #### C DP #### [address] [address] Painter And Decorator Apprentice: Ti Willis MD Monocytes (Bld) [#/Vol] 0.95 10*3/uL Normal 0.10-1.20 [facility] Comment on above: Performed By: #### C DP #### [address] [address] Painter And Decorator Apprentice: Ti Willis MD Monocytes/100 WBC (Bld) 10 % Normal 3-12 [facility] Comment on above: Performed By: #### C DP #### [address] [address] Painter And Decorator Apprentice: Ti Willis MD Morphology Juni (Bld) [Interp] ANISOCYTOSIS PRESENT Normal [facility] Comment on above: Result Comment: MACR OCYTOSIS PRESENT Performed By: #### C DP #### [address] [address] Painter And Decorator Apprentice: Ti Willis MD Neutrophil (Seg) 73 % High 36-65 [facility] Comment on above: Performed By: #### C DP #### [address] [address] Painter And Decorator Apprentice: Ti Willis MD Erythrocyte distribution width (RBC) [Ratio] 18.4 % High 11.8-14.4 [facility] Comment on above: Performed By: #### C DP #### [address] [address] Painter And Decorator Apprentice: Ti Willis MD Hematocrit (Bld) [Volume fraction] 26.4 % Low 36.3-47.1 [facility] Comment on above: Performed By: #### C DP #### [address] [address] Painter And Decorator Apprentice: Ti Willis MD Hemoglobin (Bld) [Mass/Vol] 8.5 g/dL Low 11.9-15.1 [facility] Comment on above: Performed By: #### C DP #### [address] [address] Painter And Decorator Apprentice: Ti Willis MD MCH (RBC) [Entitic mass] 40.3 pg High 25.2-33.5 [facility] Comment on above: Performed By: #### C DP #### [address] [address] Painter And Decorator Apprentice: Ti Willis MD MCHC (RBC) [Mass/Vol] 32.2 g/dL Normal 28.4-34.8 [facility] Comment on above: Performed By: #### C DP #### [address] [address] Painter And Decorator Apprentice: Ti Willis MD MCV (RBC) [Entitic vol] 125.1 fL High 82.6-102.9 [facility] Comment on above: Performed By: #### C DP #### [id number] [place] [address] Painter And Decorator Apprentice: Ti Willis MD NRBC Automated 0.0 per 100 WBC Normal 0.0 [facility] Comment on above: Performed By: #### C DP #### [address] [address] Painter And Decorator Apprentice: Ti Willis MD Platelet mean volume (Bld) [Entitic vol] 10.6 fL Normal 8.1-13.5 [facility] Comment on above: Performed By: #### C DP #### [address] [address] Painter And Decorator Apprentice: Ti Willis MD Platelets (Bld) [#/Vol] 454 10*3/uL High 138-453 [facility] Comment on above: Performed By: #### C DP #### [address] [address] Painter And Decorator Apprentice: Ti Willis MD RBC (Bld) [#/Vol] 2.11 10*6/uL Low 3.95-5.11 [facility] Comment on above: Performed By: #### C DP #### [address] [address] Painter And Decorator Apprentice: Ti Willis MD WBC (Bld) [#/Vol] 9.5 10*3/uL Normal 3.5-11.3 [facility] Comment on above: Performed By: #### C DP #### [address] [address] Painter And Decorator Apprentice: Ti Willis MD B12/Folate Panelon 4 Cobalamin (Vitamin B12) [Mass/Vol] 295 pg/mL Normal 232-1245 [facility] Comment on above: Performed By: #### W BK, WBCL, CVHH, WBNA, ABG, LACTIC, IOCAL, GLUO #### [address] [address] Painter And Decorator Apprentice: Ti Willis MD Folic Acid 5.6 ng/mL Normal >4.8 [facility] Comment on above: Performed By: #### W BK, WBCL, CVHH, WBNA, ABG, LACTIC, IOCAL, GLUO #### [address] [address] Painter And Decorator Apprentice: Ti Willis MD CBC with Diffon 12-21-2023 Abs. Basophil 0.00 k/uL Normal 0.00-0.20 [facility] Comment on above: Performed By: #### W BK, WBCL, CVHH, WBNA, ABG, LACTIC, IOCAL, GLUO #### [address] [address] Painter And Decorator Apprentice: Ti Willis MD Abs.Imm.Granulocyte 0.11 k/uL Normal 0.00-0.30 [facility] Comment on above: Performed By: #### W BK, WBCL, CVHH, WBNA, ABG, LACTIC, IOCAL, GLUO #### [address] [address] Painter And Decorator Apprentice: Ti Willis MD Abs.Neutrophil (Seg) 8.96 k/uL High 1.50-8.10 [facility] Comment on above: Performed By: #### W BK, WBCL, CVHH, WBNA, ABG, LACTIC, IOCAL, GLUO #### [address] [address] Painter And Decorator Apprentice: Ti Willis MD Basophils/100 WBC (Bld) 0 % Normal 0-2 [facility] Comment on above: Performed By: #### W BK, WBCL, CVHH, WBNA, ABG, LACTIC, IOCAL, GLUO #### [address] [address] Painter And Decorator Apprentice: Ti Willis MD Eosinophils (Bld) [#/Vol] 0.11 10*3/uL Normal 0.00-0.44 [facility] Comment on above: Performed By: #### W BK, WBCL, CVHH, WBNA, ABG, LACTIC, IOCAL, GLUO #### [address] [address] Painter And Decorator Apprentice: Ti Willis MD Eosinophils/100 WBC (Bld) 1 % Normal 1-4 [facility] Comment on above: Performed By: #### W BK, WBCL, CVHH, WBNA, ABG, LACTIC, IOCAL, GLUO #### [address] [address] [employer]orator [employer]rentice: Ti Willis MD Immature granulocytes/100 WBC (Bld) 1 % High 0 [facility] Comment on above: Performed By: #### W BK, WBCL, CVHH, WBNA, ABG, LACTIC, IOCAL, GLUO #### [address] [address] [employer] Decorator Apprentice: Ti Willis MD Lymphocytes (Bld) [#/Vol] 1.12 10*3/uL Normal 1.10-3.70 [facility] Comment on above: Performed By: #### W BK, WBCL, CVHH, WBNA, ABG, LACTIC, IOCAL, GLUO #### [address] [address] [employer] Decorator Apprentice: Ti Willis MD Lymphocytes/100 WBC (Bld) 10 % Low 24-43 [facility] Comment on above: Performed By: #### W BK, WBCL, CVHH, WBNA, ABG, LACTIC, IOCAL, GLUO #### [address] [address] [employer] Decorator Apprentice: Ti Willis MD Monocytes (Bld) [#/Vol] 0.90 10*3/uL Normal 0.10-1.20 [facility] Comment on above: Performed By: #### W BK, WBCL, CVHH, WBNA, ABG, LACTIC, IOCAL, GLUO #### [address] [address] Pain[employer] Decorator Apprentice: Ti Willis MD Monocytes/100 WBC (Bld) 8 % Normal 3-12 [facility] Comment on above: Performed By: #### W BK, WBCL, CVHH, WBNA, ABG, LACTIC, IOCAL, GLUO #### [address] [address] Pain[employer] And Decorator Apprentice: Ti Willis MD Morphology Juni (Bld) [Interp] ANISOCYTOSIS PRESENT Normal [facility] Comment on above: Result Comment: MACR OCYTOSIS PRESENT Performed By: #### W BK, WBCL, CVHH, WBNA, ABG, LACTIC, IOCAL, GLUO #### [address] [address] Painter And Decorator Apprentice: Ti Willis MD Neutrophil (Seg) 80 % High 36-65 [facility] Comment on above: Performed By: #### W BK, WBCL, CVHH, WBNA, ABG, LACTIC, IOCAL, GLUO #### [address] [address] [employer] Decorator Apprentice: Ti Willis MD Erythrocyte distribution width (RBC) [Ratio] 18.4 % High 11.8-14.4 [facility] Comment on above: Performed By: #### W BK, WBCL, CVHH, WBNA, ABG, LACTIC, IOCAL, GLUO #### [address] [address] Pain[employer] Decorator Apprentice: Ti Willis MD Hematocrit (Bld) [Volume fraction] 24.4 % Low 36.3-47.1 [facility] Comment on above: Performed By: #### W BK, WBCL, CVHH, WBNA, ABG, LACTIC, IOCAL, GLUO #### [facility] [address] [place] [address] [phone] [employer] Decorator Apprentice: Ti Willis MD Hemoglobin (Bld) [Mass/Vol] 7.9 g/dL Low 11.9-15.1 [facility] Comment on above: Performed By: #### W BK, WBCL, CVHH, WBNA, ABG, LACTIC, IOCAL, GLUO #### [address] [phone] [employer] Decorator Apprentice: Ti Willis MD MCH (RBC) [Entitic mass] 40.5 pg High 25.2-33.5 [facility] Comment on above: Performed By: #### W BK, WBCL, CVHH, WBNA, ABG, LACTIC, IOCAL, GLUO #### [address] [phone] [employer] Decorator Apprentice: Ti Willis MD MCHC (RBC) [Mass/Vol] 32.4 g/dL Normal 28.4-34.8 [facility] Comment on above: Performed By: #### W BK, WBCL, CVHH, WBNA, ABG, LACTIC, IOCAL, GLUO #### [facility] [address] [place] [address] [phone] [employer] Decorator Apprentice: Ti Willis MD MCV (RBC) [Entitic vol] 125.1 fL High 82.6-102.9 [facility] Comment on above: Performed By: #### W BK, WBCL, CVHH, WBNA, ABG, LACTIC, IOCAL, GLUO #### [address] [phone] [employer] Decorator Apprentice: Ti Willis MD NRBC Automated 0.0 per 100 WBC Normal 0.0 [facility] Comment on above: Performed By: #### W BK, WBCL, CVHH, WBNA, ABG, LACTIC, IOCAL, GLUO #### [facility] [address] [place] [address] [employer] Decorator Apprentice: Ti Willis MD Platelet mean volume (Bld) [Entitic vol] 10.7 fL Normal 8.1-13.5 [facility] Comment on above: Performed By: #### W BK, WBCL, CVHH, WBNA, ABG, LACTIC, IOCAL, GLUO #### [address] [address] [employer] Decorator Apprentice: Ti Willis MD Platelets (Bld) [#/Vol] 366 10*3/uL Normal 138-453 [facility] Comment on above: Performed By: #### W BK, WBCL, CVHH, WBNA, ABG, LACTIC, IOCAL, GLUO #### [address] [address] Painter [employer] Decorator Apprentice: Ti Willis MD RBC (Bld) [#/Vol] 1.95 10*6/uL Low 3.95-5.11 [facility] Comment on above: Performed By: #### W BK, WBCL, CVHH, WBNA, ABG, LACTIC, IOCAL, GLUO #### [facility] [address] [place] [address] [employer] Decorator Apprentice: Ti Willis MD WBC (Bld) [#/Vol] 11.2 10*3/uL Normal 3.5-11.3 [facility] Comment on above: Performed By: #### W BK, WBCL, CVHH, WBNA, ABG, LACTIC, IOCAL, GLUO #### [address] [address] [employer] Decorator Apprentice: Ti Willis MD TSH w/reflex to FT4on 2023 Thyroid Stim. Horm. 3.24 uIU/mL Normal 0.30-5.00 [facility] Comment on above: Performed By: #### C DP #### [address] [address] [employer] Decorator Apprentice: Ti Willis MD Basic Metab w/rfx MGon 12-20 Anion gap [Moles/Vol] 10 mmol/L Normal 9-17 [facility] Comment on above: Performed By: #### C DP #### [address] [address] Painter [employer] Decorator Apprentice: Ti Willis MD Calcium [Mass/Vol] 8.0 mg/dL Low 8.6-10.4 [facility] Comment on above: Performed By: #### C DP #### [address] [address] Painter [employer] Decorator Apprentice: Ti Willis MD Chloride [Moles/Vol] 100 mmol/L Normal 98-107 [facility] Comment on above: Performed By: #### C DP #### [address] [address] Painter [employer] Decorator Apprentice: Ti Willis MD CO2 [Moles/Vol] 25 mmol/L Normal 20-31 [facility] Comment on above: Performed By: #### C DP #### [address] [address] Painter [employer] Decorator Apprentice: Ti Willis MD Creatinine [Mass/Vol] 0.7 mg/dL Normal 0.5-0.9 [facility] Comment on above: Performed By: #### C DP #### [address] [address] Painter [employer] Decorator Apprentice: Ti Willis MD GFR/1.73 sq M.predicted among non-blacks MDRD (S/P/Bld) [Vol rate/Area] mL/min/{1.73_m2} Normal >60 [facility] Comment on above: Result Comment: [...] secretion. Performed By: #### C DP #### [address] [address] [employer] Decorator Apprentice: Ti Willis MD Glucose [Mass/Vol] 104 mg/dL High 70-99 [facility] Comment on above: Performed By: #### C DP #### [address] [address] [employer]ter [employer] Decorator Apprentice: Ti Willis MD Potassium [Moles/Vol] 4.1 mmol/L Normal 3.7-5.3 [facility] Comment on above: Performed By: #### C DP #### [address] [address] Painter [employer] Decorator Apprentice: Ti Willis MD Sodium [Moles/Vol] 135 mmol/L Normal 135-144 [facility] Comment on above: Performed By: #### C DP #### [address] [address] [employer] Decorator Apprentice: Ti Willis MD Urea nitrogen [Mass/Vol] 21 mg/dL Normal 8-23 [facility] Comment on above: Performed By: #### C DP #### [address] [address] Painter [employer] Decorator Apprentice: Ti Willis MD CBCon 12-20-2023 Erythrocyte distribution width (RBC) [Ratio] 18.5 % High 11.8-14.4 [facility] Comment on above: Performed By: #### C DP #### [address] [address] Painter [employer] Decorator Apprentice: Ti Willis MD Hematocrit (Bld) [Volume fraction] 24.4 % Low 36.3-47.1 [facility] Comment on above: Performed By: #### C DP #### [address] [address] Painter [employer] Decorator Apprentice: Ti Willis MD Hemoglobin (Bld) [Mass/Vol] 8.1 g/dL Low 11.9-15.1 [facility] Comment on above: Performed By: #### C DP #### [address] [address] Painter [employer] Decorator Apprentice: Ti Willis MD MCH (RBC) [Entitic mass] 40.7 pg High 25.2-33.5 [facility] Comment on above: Performed By: #### C DP #### [address] [address] Painter [employer] Decorator Apprentice: Ti Willis MD MCHC (RBC) [Mass/Vol] 33.2 g/dL Normal 28.4-34.8 [facility] Comment on above: Performed By: #### C DP #### [address] [address] [employer]ter [employer] Decorator Apprentice: Ti Willis MD MCV (RBC) [Entitic vol] 122.6 fL High 82.6-102.9 [facility] Comment on above: Performed By: #### C DP #### [address] [address] [employer]ter [employer] Decorator Apprentice: Ti Willis MD NRBC Automated 0.0 per 100 WBC Normal 0.0 [facility] Comment on above: Performed By: #### C DP #### [address] [address] Painter [employer] Decorator Apprentice: Ti Willis MD Platelet mean volume (Bld) [Entitic vol] 10.6 fL Normal 8.1-13.5 [facility] Comment on above: Performed By: #### C DP #### [id number] [place] [address] Painter And Decorator Apprentice: Ti Willis MD Platelets (Bld) [#/Vol] 356 10*3/uL Normal 138-453 [facility] Comment on above: Performed By: #### C DP #### [facility] [place] [address] Painter And Decorator Apprentice: Ti Willis MD RBC (Bld) [#/Vol] 1.99 10*6/uL Low 3.95-5.11 [facility] Comment on above: Performed By: #### C DP #### [address] [address] Painter And Decorator Apprentice: Ti Willis MD WBC (Bld) [#/Vol] 10.3 10*3/uL Normal 3.5-11.3 [facility] Comment on above: Performed By: #### C DP #### [address] [address] Painter And Decorator Apprentice: Ti Willis MD Cult,Urineon 12-19-2023 Cult,Urine Specimen [...] Tobramycin <=1 SUSCEPTIBLE Trimethoprim/Sulfa <=20 SUSCEPTIBLE Susceptible [facility] Comment on above: Performed By: #### C DP #### [facility] [place], [place] [phone] Painter [employer] Decorator Apprentice: Ti Willis MD OPERATIVE REPORTon OPERATIVE REPORT [facility] [address] [place] [address] OPERATIVE REPORT PATIENT NAME: JOSEFA CASTILLO : 1940 MED REC NO: [id number] ROOM: 0235 ACCOUNT NO: [id number] ADMIT DATE: 12/15/2023 PROVIDER: Aristeo George DATE OF PROCEDURE: 12/17/2023 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 POSTOPERATIVE DIAGNOSIS: Failed hardware left proximal femur. PROCEDURE: Conversion of prior hip surgery to left total hip arthroplasty. SURGEON: Aristeo George DO BRAKE RIDER: Edgar Middleton MD, PGY-2, MD, PGY-4, and [...] 0 PDS, deep dermal layers with 2-0 [place] (more content not included)... Normal [facility] Arterial Blood Gaseson 12-17 Ellis Test INFORMATION NOT PROVIDED [facility] Comment on above: Performed By: #### W BK, WBCL, CVHH, WBNA, ABG, LACTIC, IOCAL, GLUO #### [address] [address] Painter And Decorator Apprentice: Ti Willis MD Body Temp. 36.0 [facility] Comment on above: Performed By: #### W BK, WBCL, CVHH, WBNA, ABG, LACTIC, IOCAL, GLUO #### [address] [address] Painter And Decorator Apprentice: Ti Willis MD Carboxy Hgb 1.1 % Normal 0-5 [facility] Comment on above: Result Comment: Reference Range: Non-Smokers 0-2% Average Smoker 2-4% Heavy Smoker <10% Performed By: #### W BK, WBCL, CVHH, WBNA, ABG, LACTIC, IOCAL, GLUO #### [address] [address] Painter And Decorator Apprentice: Ti Willis MD FIO2 60 [facility] Comment on above: Performed By: #### W BK, WBCL, CVHH, WBNA, ABG, LACTIC, IOCAL, GLUO #### [address] [address] Painter And Decorator Apprentice: Ti Willis MD HCO3 (Bld) [Moles/Vol] 23.4 mmol/L Normal 22-27 [facility] Comment on above: Performed By: #### W BK, WBCL, CVHH, WBNA, ABG, LACTIC, IOCAL, GLUO #### [address] [address] Painter And Decorator Apprentice: Ti Willis MD Negative Base Excess 0.3 mmol/L Normal 0.0-2.0 [facility] Comment on above: Performed By: #### W BK, WBCL, CVHH, WBNA, ABG, LACTIC, IOCAL, GLUO #### [address] [address] Painter And Decorator Apprentice: Ti Willis MD Oxygen (Bld) [Partial pressure] 237.0 mm[Hg] High 75-95 [facility] Comment on above: Performed By: #### W BK, WBCL, CVHH, WBNA, ABG, LACTIC, IOCAL, GLUO #### [address] [address] Painter And Decorator Apprentice: Ti Willis MD Oxygen saturation in Blood 98.3 % Normal 94-100 [facility] Comment on above: Performed By: #### W BK, WBCL, CVHH, WBNA, ABG, LACTIC, IOCAL, GLUO #### [facility] [address] [place] [address] Painter And Decorator Apprentice: Ti Willis MD pCO2 36.8 mmHg Normal 32-45 [facility] Comment on above: Performed By: #### W BK, WBCL, CVHH, WBNA, ABG, LACTIC, IOCAL, GLUO #### [address] [address] Painter And Decorator Apprentice: Ti Willis MD pH (Bld) 7.418 [pH] Normal 7.350-7.450 [facility] Comment on above: Performed By: #### W BK, WBCL, CVHH, WBNA, ABG, LACTIC, IOCAL, GLUO #### [facility] [address] [place] [address] [phone] Pain[employer] Decorator Apprentice: Ti Willis MD CV Hgb/Hcton 12-17-2023 Hematocrit (Bld) [Volume fraction] 35.4 % Low 36.3-47.1 [facility] Comment on above: Performed By: #### W BK, WBCL, CVHH, WBNA, ABG, LACTIC, IOCAL, GLUO #### [address] [phone] Painter [employer] Decorator Apprentice: Ti Willis MD Hemoglobin (Bld) [Mass/Vol] 11.5 g/dL Low 11.9-15.1 [facility] Comment on above: Performed By: #### W BK, WBCL, CVHH, WBNA, ABG, LACTIC, IOCAL, GLUO #### [facility] [address] [place] [address] [phone] Painter And Decorator Apprentice: Ti Willis MD Calcium, Ionicon 12-17-2023 Calcium [Moles/Vol] 1.14 mmol/L Normal 1.13-1.33 [facility] Comment on above: Performed By: #### W BK, WBCL, CVHH, WBNA, ABG, LACTIC, IOCAL, GLUO #### [facility] [address] [place] [address] [phone] Painter [employer] Decorator Apprentice: Ti Willis MD Chloride - Whole Blon 7 Chloride [Moles/Vol] 106 mmol/L Normal 98-110 [facility] Comment on above: Performed By: #### W BK, WBCL, CVHH, WBNA, ABG, LACTIC, IOCAL, GLUO #### [facility] [address] [place] [address] [phone] Painter And Decorator Apprentice: Ti Willis MD FLUORO FOR SURGICAL PROCEDUR ESon 12-17-2023 FLUORO FOR SURGICAL PROCEDURES Radiology exam is complete. No Radiologist dictation. Please follow up with ordering provider. Final result Normal [facility] Glucose,Whole Bloodon 2023 Glucose [Mass/Vol] 101 mg/dL Normal 65-105 [facility] Comment on above: Performed By: #### W BK, WBCL, CVHH, WBNA, ABG, LACTIC, IOCAL, GLUO #### [facility] [address] [place] [address] [phone] Painter And Decorator Apprentice: Ti Willis MD Lactic Acidon 12-17-2023 Lactic Acid,Whole Bl 2.2 mmol/L High 0.7-2.1 [facility] Comment on above: Performed By: #### W BK, WBCL, CVHH, WBNA, ABG, LACTIC, IOCAL, GLUO #### [address] [phone] Painter And Decorator Apprentice: Ti Willis MD Potassium - Whole Blon 12-17 Potassium [Moles/Vol] 3.3 mmol/L Low 3.6-5.0 [facility] Comment on above: Performed By: #### W BK, WBCL, CVHH, WBNA, ABG, LACTIC, IOCAL, GLUO #### [address] [phone] Painter [employer] Decorator Apprentice: Ti Willis MD Sodium - Whole Bloodon 12-17 Sodium [Moles/Vol] 137 mmol/L Normal 136-145 [facility] Comment on above: Performed By: #### W BK, WBCL, CVHH, WBNA, ABG, LACTIC, IOCAL, GLUO #### [facility] [address] [place] [address] [phone] Painter And Decorator Apprentice: Ti Willis MD Type + Screenon 12-17-2023 Type + Screen Sample Expiration 12/20/2023,2359 Arm Band Number [id number] ABO/Rh(D) A POSITIVE Antibody Screen NEGATIVE Unit Number [id number] Blood Component Type Leukocyte Reduced Red Cell Unit Division 00 Status of Unit REL FROM ALLOC Transfusion Status OK TO TRANSFUSE Crossmatch Result COMPATIBLE Unit Number [id number] Blood Component Type Leukocyte Reduced Red Cell Unit Division 00 Status of Unit REL FROM ALLOC Transfusion Status OK TO TRANSFUSE Crossmatch Result COMPATIBLE Normal [facility] Comment on above: Performed By: #### C DP #### [facility] [address] [place] [address] [phone] Painter And Decorator Apprentice: Ti Willis MD XR HIP 2-3 VW [...] Magana IV, MD 12/17/23 Final result Normal [facility] CBC with Diffon 12-16-2023 Abs. Basophil 0.05 k/uL Normal 0.00-0.20 [facility] Comment on above: Performed By: #### C DP #### [facility] [address] [place] [address] [phone] Painter And Decorator Apprentice: Ti Willis MD Abs.Imm.Granulocyte 0.00 k/uL Normal 0.00-0.30 [facility] Comment on above: Performed By: #### C DP #### [facility] [address] [place] [address] [phone] Painter And Decorator Apprentice: Ti Willis MD Abs.Neutrophil (Seg) 2.52 k/uL Normal 1.50-8.10 [facility] Comment on above: Performed By: #### C DP #### [address] [address] Painter And Decorator Apprentice: Ti Willis MD Basophils/100 WBC (Bld) 1 % Normal 0-2 [facility] Comment on above: Performed By: #### C DP #### [address] [address] Painter And Decorator Apprentice: Ti Willis MD Eosinophils (Bld) [#/Vol] 0.09 10*3/uL Normal 0.00-0.44 [facility] Comment on above: Performed By: #### C DP #### [place] [address] Painter And Decorator Apprentice: Ti Willis MD Eosinophils/100 WBC (Bld) 2 % Normal 1-4 [facility] Comment on above: Performed By: #### C DP #### [address] [address] Painter And Decorator Apprentice: Ti Willis MD Immature granulocytes/100 WBC (Bld) 0 % Normal 0 [facility] Comment on above: Performed By: #### C DP #### [place] [address] Painter And Decorator Apprentice: Ti Willis MD Lymphocytes (Bld) [#/Vol] 1.43 10*3/uL Normal 1.10-3.70 [facility] Comment on above: Performed By: #### C DP #### [address] [address] Painter And Decorator Apprentice: Ti Willis MD Lymphocytes/100 WBC (Bld) 31 % Normal 24-43 [facility] Comment on above: Performed By: #### C DP #### [address] [address] Painter And Decorator Apprentice: Ti Willis MD Monocytes (Bld) [#/Vol] 0.51 10*3/uL Normal 0.10-1.20 [facility] Comment on above: Performed By: #### C DP #### [address] [address] Painter And Decorator Apprentice: Ti Willis MD Monocytes/100 WBC (Bld) 11 % Normal 3-12 [facility] Comment on above: Performed By: #### C DP #### [address] [address] Painter And Decorator Apprentice: Ti Willis MD Morphology Juni (Bld) [Interp] ANISOCYTOSIS PRESENT Normal [facility] Comment on above: Result Comment: MACR OCYTOSIS PRESENT Performed By: #### C DP #### [address] [address] Painter And Decorator Apprentice: Ti Willis MD Neutrophil (Seg) 55 % Normal 36-65 [facility] Comment on above: Performed By: #### C DP #### [address] [address] Painter And Decorator Apprentice: Ti Willis MD Erythrocyte distribution width (RBC) [Ratio] 19.2 % High 11.8-14.4 [facility] Comment on above: Performed By: #### C DP #### [address] [address] Painter And Decorator Apprentice: Ti Willis MD Hematocrit (Bld) [Volume fraction] 36.2 % Low 36.3-47.1 [facility] Comment on above: Performed By: #### C DP #### [address] [address] Painter And Decorator Apprentice: Ti Willis MD Hemoglobin (Bld) [Mass/Vol] 11.9 g/dL Normal 11.9-15.1 [facility] Comment on above: Performed By: #### C DP #### [address] [address] Painter And Decorator Apprentice: Ti Willis MD MCH (RBC) [Entitic mass] 39.5 pg High 25.2-33.5 [facility] Comment on above: Performed By: #### C DP #### [place] [address] [employer]ter And Decorator Apprentice: Ti Willis MD MCHC (RBC) [Mass/Vol] 32.9 g/dL Normal 28.4-34.8 [facility] Comment on above: Performed By: #### C DP #### [place] [address] [employer]ter And Decorator Apprentice: Ti Willis MD MCV (RBC) [Entitic vol] 120.3 fL High 82.6-102.9 [facility] Comment on above: Performed By: #### C DP #### [address] [address] Painter And Decorator Apprentice: Ti Willis MD NRBC Automated 0.0 per 100 WBC Normal 0.0 [facility] Comment on above: Performed By: #### C DP #### [place] [address] Painter And Decorator Apprentice: Ti Willis MD Platelet mean volume (Bld) [Entitic vol] 10.1 fL Normal 8.1-13.5 [facility] Comment on above: Performed By: #### C DP #### [address] [address] Painter And Decorator Apprentice: Ti Willis MD Platelets (Bld) [#/Vol] 361 10*3/uL Normal 138-453 [facility] Comment on above: Performed By: #### C DP #### [employer] [address] [place] [address] Painter And Decorator Apprentice: Ti Willis MD RBC (Bld) [#/Vol] 3.01 10*6/uL Low 3.95-5.11 [facility] Comment on above: Performed By: #### C DP #### [facility] [address] [place] [address] Painter And Decorator Apprentice: Ti Willis MD WBC (Bld) [#/Vol] 4.6 10*3/uL Normal 3.5-11.3 [facility] Comment on above: Performed By: #### C DP #### [address] [address] Painter And Decorator Apprentice: Ti Willis MD Basic Metabolic Profon 12-15 Anion gap [Moles/Vol] 12 mmol/L Normal 9-17 [facility] Comment on above: Performed By: #### C DP #### [facility] [address] [place] [phone] Pain[employer] Decorator Apprentice: Ti Willis MD Calcium [Mass/Vol] 9.0 mg/dL Normal 8.6-10.4 [facility] Comment on above: Performed By: #### C DP #### [facility] [address] [place] [phone] Painter And Decorator Apprentice: Ti Willis MD Chloride [Moles/Vol] 100 mmol/L Normal 98-107 [facility] Comment on above: Performed By: #### C DP #### [facility] [address] [place] [address] Painter And Decorator Apprentice: Ti Willis MD CO2 [Moles/Vol] 24 mmol/L Normal 20-31 [facility] [facility] Comment on above: Performed By: #### C DP #### [facility] [address] [place] [address] [employer]rentice: Ti Willis MD Creatinine [Mass/Vol] 0.6 mg/dL Normal 0.5-0.9 [facility] Comment on above: Performed By: #### C DP #### [address] [address] Pain[employer] Decorator Apprentice: Ti Willis MD GFR/1.73 sq M.predicted among non-blacks MDRD (S/P/Bld) [Vol rate/Area] mL/min/{1.73_m2} Normal >60 [facility] Comment on above: Result Comment: [...] secretion. Performed By: #### C DP #### [facility] [address] [place] [address] [employer] Decorator Apprentice: Ti Willis MD Glucose [Mass/Vol] 88 mg/dL Normal 70-99 [facility] Comment on above: Performed By: #### C DP #### [address] [address] [employer] Decorator Apprentice: Ti Willis MD Potassium [Moles/Vol] 4.0 mmol/L Normal 3.7-5.3 [facility] Comment on above: Performed By: #### C DP #### [facility] [address] [place] [address] [employer] Decorator Apprentice: Ti Willis MD Sodium [Moles/Vol] 136 mmol/L Normal 135-144 [facility] Comment on above: Performed By: #### C DP #### [facility] [address] [place] [address] [employer] Decorator Apprentice: Ti Willis MD Urea nitrogen [Mass/Vol] 10 mg/dL Normal 8-23 [facility] Comment on above: Performed By: #### C DP #### [address] [address] [employer] Decorator Apprentice: Ti Willis MD CBC with Diffon 12-15-2023 Abs. Basophil 0.12 k/uL Normal 0.0-0.2 [facility] Comment on above: Performed By: #### C DP #### [address] [address] Pain[employer] Decorator Apprentice: Ti Willis MD Abs.Imm.Granulocyte 0.00 k/uL Normal 0.00-0.30 [facility] Comment on above: Performed By: #### C DP #### [address] [address] Pain[employer] Decorator Apprentice: Ti Willis MD Abs.Neutrophil (Seg) 3.85 k/uL Normal 1.8-7.7 [facility] Comment on above: Performed By: #### C DP #### [address] [address] [employer] Decorator Apprentice: Ti Willis MD Basophils/100 WBC (Bld) 2 % Normal 0-2 [facility] Comment on above: Performed By: #### C DP #### [address] [address] Painter And Decorator Apprentice: Ti Willis MD Eosinophils (Bld) [#/Vol] 0.12 10*3/uL Normal 0.0-0.4 [facility] Comment on above: Performed By: #### C DP #### [address] [address] Painter [employer] Decorator Apprentice: Ti Willis MD Eosinophils/100 WBC (Bld) 2 % Normal 1-4 [facility] Comment on above: Performed By: #### C DP #### [address] [place] [address] Painter And Decorator Apprentice: Ti Willis MD Immature granulocytes/100 WBC (Bld) 0 % Normal 0 [facility] Comment on above: Performed By: #### C DP #### [address] [address] Pain[employer] Decorator Apprentice: Ti Willis MD Lymphocytes (Bld) [#/Vol] 1.49 10*3/uL Normal 1.0-4.8 [facility] Comment on above: Performed By: #### C DP #### [address] [address] Painter And Decorator Apprentice: iT Willis MD Lymphocytes/100 WBC (Bld) 24 % Normal 24-44 [facility] Comment on above: Performed By: #### C DP #### [address] [address] Painter [employer] Decorator Apprentice: Ti Willis MD Monocytes (Bld) [#/Vol] 0.62 10*3/uL Normal 0.1-0.8 [facility] Comment on above: Performed By: #### C DP #### [address] [address] Painter And Decorator Apprentice: Ti Willis MD Monocytes/100 WBC (Bld) 10 % High 1-7 [facility] Comment on above: Performed By: #### C DP #### [address] [address] Painter And Decorator Apprentice: Ti Willis MD Morphology Juni (Bld) [Interp] ANISOCYTOSIS PRESENT Normal [facility] Comment on above: Result Comment: MACR OCYTOSIS PRESENT Performed By: #### C DP #### [address] [address] Pain[employer] Decorator Apprentice: Ti Willis MD Neutrophil (Seg) 62 % Normal 36-66 [facility] Comment on above: Performed By: #### C DP #### [address] [address] Painter And Decorator Apprentice: Ti Willis MD Erythrocyte distribution width (RBC) [Ratio] 18.8 % High 11.8-14.4 [facility] Comment on above: Performed By: #### C DP #### [address] [address] Painter [employer] Decorator Apprentice: Ti Willis MD Hematocrit (Bld) [Volume fraction] 41.1 % Normal 36.3-47.1 [facility] Comment on above: Performed By: #### C DP #### [address] [address] Painter [employer] Decorator Apprentice: Ti Willis MD Hemoglobin (Bld) [Mass/Vol] 13.9 g/dL Normal 11.9-15.1 [facility] Comment on above: Performed By: #### C DP #### [address] [address] Painter [employer] Decorator Apprentice: Ti Willis MD MCH (RBC) [Entitic mass] 40.5 pg High 25.2-33.5 [facility] Comment on above: Performed By: #### C DP #### [address] [address] Painter [employer] Decorator Apprentice: Ti Willis MD MCHC (RBC) [Mass/Vol] 33.8 g/dL Normal 28.4-34.8 [facility] Comment on above: Performed By: #### C DP #### [address] [address] Painter And Decorator Apprentice: Ti Willis MD MCV (RBC) [Entitic vol] 119.8 fL High 82.6-102.9 [facility] Comment on above: Performed By: #### C DP #### [address] [address] Painter And Decorator Apprentice: Ti Willis MD NRBC Automated 0.0 per 100 WBC Normal 0.0 [facility] Comment on above: Performed By: #### C DP #### [address] [address] Painter [employer] Decorator Apprentice: Ti Willis MD Platelet mean volume (Bld) [Entitic vol] 9.7 fL Normal 8.1-13.5 [facility] Comment on above: Performed By: #### C DP #### [address] [address] Painter [employer] Decorator Apprentice: Ti Willis MD Platelets (Bld) [#/Vol] 426 10*3/uL Normal 138-453 [facility] Comment on above: Performed By: #### C DP #### [address] [address] Painter And Decorator Apprentice: Ti Willis MD RBC (Bld) [#/Vol] 3.43 10*6/uL Low 3.95-5.11 [facility] Comment on above: Performed By: #### C DP #### [address] [address] Painter And Decorator Apprentice: Ti Willis MD WBC (Bld) [#/Vol] 6.2 10*3/uL Normal 3.5-11.3 [facility] Comment on above: Performed By: #### C DP #### [address] [address] Painter And Decorator Apprentice: Ti Willis MD PTon 12-15-2023 INR Coag (PPP) [Relative time] 1.1 {INR} Normal [facility] Comment on above: Result Comment: Therapeutic Range: Moderate Anticoagulant Intensity: INR = 2.0-3.0 High Anticoagulant Intensity: INR = 2.5-3.5 Performed By: #### C DP #### [address] [address] [place] [address] Painter And Decorator Apprentice: Ti Willis MD PT Coag (PPP) [Time] 13.6 s Normal 11.7-14.9 [facility] Comment on above: Performed By: #### C DP #### [facility] [place] [address] Painter And Decorator Apprentice: Ti Willis MD Vitamin D 25 [place]on 12-15-2023 Vitamin D 25 [place] 14.1 ng/mL Low >29.9 [facility] Comment on above: Result Comment: Reference Range: Vitamin D status Range Deficiency <20 ng/mL Mild Deficiency 20-30 ng/mL Sufficiency 30-100 ng/mL Toxicity >100 ng/mL Performed By: #### C DP #### [facility] [address] [place] [address] Painter And Decorator Apprentice: Ti Willis MD XR FEMUR LEFT (MIN [...] Africa Colin MD 12/15/23 Final result Normal [facility] CBC W Auto Differential pane l (Bld)on 07-29-2023 Basophils (Bld) [#/Vol] 0.07 10*3/uL Normal <0.11 [facility] Comment on above: Order Comment: Speci men Type: BLOOD SPECIMEN Ordering Facility: [facility] Address: [address] [address] Performed By: #### 5 7021-8 #### [facility] CLIA [id number] [address] [place] [address] Basophils/100 WBC (Bld) 0.9 % Normal [facility] Comment on above: Order Comment: Speci men Type: BLOOD SPECIMEN Ordering Facility: [facility] Address: [address] [address] Performed By: #### 5 7021-8 #### [facility] CLIA [id number] [address] [place] [address] Differential cell count method Nom (Bld) Auto Normal [facility] Comment on above: Order Comment: Speci men Type: BLOOD SPECIMEN Ordering Facility: [facility] Address: [address] [address] Performed By: #### 5 7021-8 #### [facility] CLIA [id number] [address] [place] [address] Eosinophils (Bld) [#/Vol] 0.12 10*3/uL Normal <0.46 [facility] Comment on above: Order Comment: Speci men Type: BLOOD SPECIMEN Ordering Facility: [facility] Address: [address] [address] Performed By: #### 5 7021-8 #### [facility] CLIA [id number] [address] [place] [address] Eosinophils/100 WBC (Bld) 1.6 % Normal [facility] Comment on above: Order Comment: Speci men Type: BLOOD SPECIMEN Ordering Facility: [facility] Address: [address] [address] Performed By: #### 5 7021-8 #### [facility] CLIA [id number] [address] [place] [address] Erythrocyte distribution width (RBC) [Ratio] 14.0 % Normal 11.5-15.0 [facility] Comment on above: Order Comment: Speci men Type: BLOOD SPECIMEN Ordering Facility: [facility] Address: [address] [address] Performed By: #### 5 7021-8 #### [facility] CLIA [id number] [address] [place] [address] Hematocrit (Bld) [Volume fraction] 41.4 % Normal 36.0-46.0 [facility] Comment on above: Order Comment: Speci men Type: BLOOD SPECIMEN Ordering Facility: [facility] Address: [address] [address] Performed By: #### 5 7021-8 #### [facility] CLIA [id number] [address] [place] [address] Hemoglobin (Bld) [Mass/Vol] 13.6 g/dL Normal 11.5-15.5 [facility] Comment on above: Order Comment: Speci men Type: BLOOD SPECIMEN Ordering Facility: [facility] Address: [address] [address] Performed By: #### 5 7021-8 #### [facility] CLIA [id number] [address] [place] [address] Immature granulocytes (Bld) [#/Vol] 0.03 10*3/uL Normal <0.10 [facility] Comment on above: Order Comment: Speci men Type: BLOOD SPECIMEN Ordering Facility: [facility] Address: [address] [address] Performed By: #### 5 7021-8 #### [facility] CLIA [id number] [address] [place] [address] Immature granulocytes/100 WBC (Bld) 0.4 % Normal [facility] Comment on above: Order Comment: Speci men Type: BLOOD SPECIMEN Ordering Facility: [facility] Address: [address] [address] Performed By: #### 5 7021-8 #### [facility] CLIA [id number] [address] [place] [address] Lymphocytes (Bld) [#/Vol] 1.84 10*3/uL Normal 1.00-4.00 [facility] Comment on above: Order Comment: Speci men Type: BLOOD SPECIMEN Ordering Facility: [facility] Address: [address] [place] [address] Performed By: #### 5 7021-8 #### [facility] CLIA [id number] [address] [place] [address] Lymphocytes/100 WBC (Bld) 24.6 % Normal [facility] Comment on above: Order Comment: Speci men Type: BLOOD SPECIMEN Ordering Facility: [facility] Address: [address] [place] [address] Performed By: #### 5 7021-8 #### [facility] CLIA [id number] [address] [place] [address] MCH (RBC) [Entitic mass] 38.1 pg High 26.0-34.0 [facility] Comment on above: Order Comment: Speci men Type: BLOOD SPECIMEN Ordering Facility: [facility] Address: [address] [place] [address] Performed By: #### 5 7021-8 #### [facility] CLIA [id number] [address] [place] [address] MCHC (RBC) [Mass/Vol] 32.9 g/dL Normal 30.5-36.0 [facility] Comment on above: Order Comment: Speci men Type: BLOOD SPECIMEN Ordering Facility: [facility] Address: [address] [place] [address] Performed By: #### 5 7021-8 #### [facility] CLIA [id number] [address] [place] [address] MCV (RBC) [Entitic vol] 116.0 fL High 80.0-100.0 [facility] Comment on above: Order Comment: Speci men Type: BLOOD SPECIMEN Ordering Facility: [facility] Address: [address] [address] Performed By: #### 5 7021-8 #### [facility] CLIA [id number] [address] [place] [address] Monocytes (Bld) [#/Vol] 0.64 10*3/uL Normal <0.87 [facility] Comment on above: Order Comment: Speci men Type: BLOOD SPECIMEN Ordering Facility: [facility] Address: [address] [address] Performed By: #### 5 7021-8 #### [facility] CLIA [id number] [address] [place] [address] Monocytes/100 WBC (Bld) 8.6 % Normal [facility] Comment on above: Order Comment: Speci men Type: BLOOD SPECIMEN Ordering Facility: [facility] Address: [address] [address] Performed By: #### 5 7021-8 #### [facility] CLIA [id number] [address] [place] [address] Neutrophils (Bld) [#/Vol] 4.77 10*3/uL Normal 1.45-7.50 [facility] Comment on above: Order Comment: Speci men Type: BLOOD SPECIMEN Ordering Facility: [facility] Address: [address] [address] Performed By: #### 5 7021-8 #### [facility] CLIA [id number] [address] [place] [address] Neutrophils/100 WBC (Bld) 63.9 % Normal [facility] Comment on above: Order Comment: Speci men Type: BLOOD SPECIMEN Ordering Facility: [facility] Address: [address] [address] Performed By: #### 5 7021-8 #### [facility] CLIA [id number] [address] [place] [address] Nucleated RBC (Bld) [#/Vol] 10*3/uL Normal <0.01 [facility] Comment on above: Order Comment: Speci men Type: BLOOD SPECIMEN Ordering Facility: [facility] Address: [address] [address] Performed By: #### 5 7021-8 #### [facility] CLIA [id number] [address] [place] [address] Nucleated RBC/100 WBC (Bld) [Ratio] 0.0 /100 WBC Normal [facility] Comment on above: Order Comment: Speci men Type: BLOOD SPECIMEN Ordering Facility: [facility] Address: [address] [address] Performed By: #### 5 7021-8 #### [facility] CLIA [id number] [address] [place] [address] Platelet mean volume (Bld) [Entitic vol] 9.8 fL Normal 9.0-12.7 [facility] Comment on above: Order Comment: Speci men Type: BLOOD SPECIMEN Ordering Facility: [facility] Address: [address] [address] Performed By: #### 5 7021-8 #### [facility] CLIA [id number] [address] [place] [address] Platelets (Bld) [#/Vol] 591 10*3/uL High 150-400 [facility] Comment on above: Order Comment: Speci men Type: BLOOD SPECIMEN Ordering Facility: [facility] Address: [address] Performed By: #### 5 7021-8 #### [facility] CLIA [id number] [address] [place] [address] RBC (Bld) [#/Vol] 3.57 10*6/uL Low 3.90-5.20 [facility] Comment on above: Order Comment: Speci men Type: BLOOD SPECIMEN Ordering Facility: [facility] Address: [address] [address] Performed By: #### 5 7021-8 #### [facility] CLIA [id number] [address] [place] [address] WBC (Bld) [#/Vol] 7.47 10*3/uL Normal 3.70-11.00 [facility] Comment on above: Order Comment: Speci men Type: BLOOD SPECIMEN Ordering Facility: [facility] Address: [place] [address] Performed By: #### 5 7021-8 #### [facility] CLIA [id number] [address] [place] [address] [facility] Nurse Visit ([facility]) JOSEFA CASTILLO ([id number]) 1940 F Date Time Provider Department 07/29/23 [...] Kiera Rey Ma Referring Provider: ROD ROMAN [[id number]] Allergies As of Date: 07/29/2023 Noted Allergy [...] vitamin B12 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] Order(s):BCN NURSING COMMUNICATION [[id number]] Order #: [id number]: 1 STANDING BCN NURSING COMMUNICATION [9991105] Order #: [id number]: 1 STANDING BCN NURSING COMMUNICATION [9991105] Order #: [id number]: 1 STANDING BCN NURSING COMMUNICATION [9991105] Order #: [id number]: 1 STANDING BCN NURSING COMMUNICATION [9991105] Order #: [id number]: 1 STANDING [] cyanocobalamin 1,000 mcg injectionDisp: [...] CYANOCOBALAMIN ( (more content not included)... Normal [facility]OV[facility]on 07-29-2023 [facility] Visit (SP) Office ([place]) CASTILLOJOSEFA BRADY ([id number]) 1940 F Date Time Provider Department 07/29/23 10:15 AM ROD ROMAN During your visit today, we recorded the following information about you: Temperature Pulse Respiration Blood pressure 97.3 degrees 63/minute 16/minute 175/71 Weight 57 kg Rod Roman MD 08/01/2023 3:49 PM Signed NAME: Josefa Castillo CLINIC NO.: [id number] DATE OF SERVICE: July 29, 2023 (Carlos) [...] found to have thrombocytosis while living in [place]. She has been on various dosing through [...] month 3. Basal cell ca of right mormon April 2023 PLAN: Labs to include B12 in 8 weeks. Labs every 8 weeks, CBC, CMP Continue current regimen of Hydrea 500 mg daily Wednesday - Wednesday but increase to 2 tablets (1000 mg) on Saturdays and Sundays) B12 Shot today and every 8 weeks. RTC in 16 weeks HPI: Updated Visit, July 29, 2023: Right mormon was not a melanoma - basal cell. Labs reviewed and adjusted hydrea on weekends Otherwise is doing very well. Updated Visit, April 08, 2023: Says she's not doing well. Difficulty with vision Need records from right mormon melanoma. Continues B12 shots every 8 weeks [...] the left side of head over the mormon and into the jaw. No vision changes associated with pain. Intermittent and dull and pounding. Right mormon at the corner of her eye lid [...] with hydrea (more content not included)... Normal [facility] Comprehensive metabolic 2000 panelon 07-29-2023 Albumin [Mass/Vol] 4.4 g/dL Normal 3.9-4.9 [facility] Comment on above: Order Comment: Quincy pires Type: BLOOD SPECIMEN Ordering Facility: [facility] Address: [address] [place] [address] Performed By: #### 2 4323-8, 0 #### [facility] CLIA [id number] [address] [place] [address] ALP [Catalytic activity/Vol] 60 U/L Normal 34-123 [facility] Comment on above: Order Comment: Quincy pires Type: BLOOD SPECIMEN Ordering Facility: [facility] Address: [address] [place] [address] Performed By: #### 2 4323-8, 0 #### [facility] CLIA [id number] [address] [place] [address] ALT [Catalytic activity/Vol] 11 U/L Normal 7-38 [facility] Comment on above: Order Comment: Speci men Type: BLOOD SPECIMEN Ordering Facility: [facility] Address: [address] [address] Performed By: #### 2 4323-8, 2532-0 #### [facility] CLIA [id number] [address] [place] [address] Anion gap [Moles/Vol] 9 mmol/L Normal 9-18 [facility] Comment on above: Order Comment: Speci men Type: BLOOD SPECIMEN Ordering Facility: [facility] Address: [address] [place] [address] Performed By: #### 2 4323-8, 2532-0 #### [facility] CLIA [id number] [address] [place] [address] 22702 AST [Catalytic activity/Vol] 16 U/L Normal 13-35 [facility] Comment on above: Order Comment: Speci men Type: BLOOD SPECIMEN Ordering Facility: [facility] Address: [address] [place] [address] Performed By: #### 2 432-8, 2532-0 #### [facility] CLIA [id number] [address] [place] [address] Bilirubin [Mass/Vol] 0.5 mg/dL Normal 0.2-1.3 [facility] Comment on above: Order Comment: Speci men Type: BLOOD SPECIMEN Ordering Facility: [facility] Address: [address] [place] [address] Performed By: #### 2 4323-8, 2532-0 #### [facility] CLIA [id number] [address] [place] [address] Calcium [Mass/Vol] 9.4 mg/dL Normal 8.5-10.2 [facility] Comment on above: Order Comment: Speci men Type: BLOOD SPECIMEN Ordering Facility: [facility] Address: [address] [address] Performed By: #### 2 4323-8, 2531-0 #### [facility] CLIA [id number] [address] [place] [address]45 Chloride [Moles/Vol] 104 mmol/L Normal 97-105 [facility] Comment on above: Order Comment: Speci men Type: BLOOD SPECIMEN Ordering Facility: [facility] Address: [address] [place] [address] Performed By: #### 2 4323-8, 2531-0 #### [facility] CLIA [id number] [address] [place] [address]72 CO2 [Moles/Vol] 27 mmol/L Normal 22-30 [facility] Comment on above: Order Comment: Speci men Type: BLOOD SPECIMEN Ordering Facility: [facility] Address: [address] [place] [address] Performed By: #### 2 4323-8, 2531-0 #### [facility] CLIA [id number] [address] [place] [address]16 Creatinine [Mass/Vol] 1.24 mg/dL High 0.58-0.96 [facility] Comment on above: Order Comment: Speci men Type: BLOOD SPECIMEN Ordering Facility: [facility] Address: [address] [place] [address] Performed By: #### 2 43238, 2531-0 #### [facility] CLIA [id number] [address] [place] [address]21 Creatinine and Glomerular filtration rate.predicted panel (S/P/Bld) 43 mL/min/1.73m??? Low >=60 [facility] Comment on above: Order Comment: Speci men Type: BLOOD SPECIMEN Ordering Facility: [facility] Address: [address] [place] [address] Result Comment: Esmer mated Glomerular Filtration Rate [...] reflect actual GFR. Performed By: #### 2 43238, 0 #### [facility] CLIA [id number] [address] [place] [address] 30229 Glucose [Mass/Vol] 114 mg/dL High 74-99 [facility] Comment on above: Order Comment: Quincy pires Type: BLOOD SPECIMEN Ordering Facility: [facility] Address: [address] [place] [phone] Result Comment: The [place] Diabetes Association (ADA) provides guidance for cutoff [...] Standards of Medical Care in Diabetes 2016, [place] [employer]. Diabetes Care. 2016.39(Suppl 1). Performed By: #### 2 4328, #### [facility] CLIA [id number] [address] [place] [address] 89540 Potassium [Moles/Vol] 5.0 mmol/L Normal 3.7-5.1 [facility] Comment on above: Order Comment: Quincy pires Type: BLOOD SPECIMEN Ordering Facility: [facility] Address: [address] [place] [address] Performed By: #### 2 4328, 0 #### [facility] CLIA [id number] [address] [place] [address] Protein [Mass/Vol] 6.4 g/dL Normal 6.3-8.0 [facility] Comment on above: Order Comment: Speci men Type: BLOOD SPECIMEN Ordering Facility: [facility] Address: [address] [address] Performed By: #### 2 4323-8, 2531-0 #### [facility] CLIA [id number] [address] [place] [address] Sodium [Moles/Vol] 140 mmol/L Normal 136-144 [facility] Comment on above: Order Comment: Speci men Type: BLOOD SPECIMEN Ordering Facility: [facility] Address: [address] [place] [address] Performed By: #### 2 4328, 2531-0 #### [facility] CLIA [id number] [address] [place] [address] 27079 Urea nitrogen [Mass/Vol] 18 mg/dL Normal 7-21 [facility] Comment on above: Order Comment: Speci men Type: BLOOD SPECIMEN Ordering Facility: [facility] Address: [address] [place] [address] Performed By: #### 2 4328, 2531-0 #### [facility] CLIA [id number] [address] [place] [address] 14287 LDH SerPl-cCncon 07-29-2023 LDH [Catalytic activity/Vol] 211 U/L Normal 135-214 [facility] Comment on above: Order Comment: Speci men Type: BLOOD SPECIMEN Ordering Facility: [facility] Address: [address] [place] [address] Result Comment: Hemo lysis present. The origin [...] Performed By: #### 2 4323-8, 2532-0 #### [facility] CLIA [id number] [address] [place] [address] 14944 CBC W Auto Differential pane l (Bld)on 04-08-2023 Basophils (Bld) [#/Vol] 0.05 10*3/uL Normal <0.11 [facility] Comment on above: Order Comment: Speci men Type: BLOOD SPECIMEN Ordering Facility: [facility] Address: [address] [address] Performed By: #### 5 7021-8 #### [facility] CLIA [id number] [address] [place] [address] 90524 Basophils/100 WBC (Bld) 0.7 % Normal [facility] Comment on above: Order Comment: Speci men Type: BLOOD SPECIMEN Ordering Facility: [facility] Address: [address] [address] Performed By: #### 5 7021-8 #### [facility] CLIA [id number] [address] [place] [address] 92294 Differential cell count method Nom (Bld) Auto Normal [facility] Comment on above: Order Comment: Speci men Type: BLOOD SPECIMEN Ordering Facility: [facility] Address: [address] [address] Performed By: #### 5 7021-8 #### [facility] CLIA [id number] [address] [place] [address] 55607 Eosinophils (Bld) [#/Vol] 0.10 10*3/uL Normal <0.46 [facility] Comment on above: Order Comment: Speci men Type: BLOOD SPECIMEN Ordering Facility: [facility] Address: [address] [address] Performed By: #### 5 7021-8 #### [facility] CLIA [id number] [address] [place] [address]23 Eosinophils/100 WBC (Bld) 1.5 % Normal [facility] Comment on above: Order Comment: Speci men Type: BLOOD SPECIMEN Ordering Facility: [facility] Address: [address] [address] Performed By: #### 5 7021-8 #### [facility] CLIA [id number] [address] [place] [address] Erythrocyte distribution width (RBC) [Ratio] 13.5 % Normal 11.5-15.0 [facility] Comment on above: Order Comment: Speci men Type: BLOOD SPECIMEN Ordering Facility: [facility] Address: [address] [place] [address] Performed By: #### 5 7021-8 #### [facility] CLIA [id number] [address] [place] [address] 71312 Hematocrit (Bld) [Volume fraction] 40.3 % Normal 36.0-46.0 [facility] Comment on above: Order Comment: Speci men Type: BLOOD SPECIMEN Ordering Facility: [facility] Address: [address] [place] [address] Performed By: #### 5 7021-8 #### [facility] CLIA [id number] [address] [place] [address] 36203 Hemoglobin (Bld) [Mass/Vol] 13.4 g/dL Normal 11.5-15.5 [facility] Comment on above: Order Comment: Speci men Type: BLOOD SPECIMEN Ordering Facility: [facility] Address: [address] [place] [address] Performed By: #### 5 7021-8 #### [facility] CLIA [id number] [address] [place] [address] 13136 Immature granulocytes (Bld) [#/Vol] 10*3/uL Normal <0.10 [facility] Comment on above: Order Comment: Speci men Type: BLOOD SPECIMEN Ordering Facility: [facility] Address: [address] [place] [address] Performed By: #### 5 7021-8 #### [facility] CLIA [id number] [address] [place] [address] 10198 Immature granulocytes/100 WBC (Bld) 0.3 % Normal [facility] Comment on above: Order Comment: Speci men Type: BLOOD SPECIMEN Ordering Facility: [facility] Address: [address] [address] Performed By: #### 5 7021-8 #### [facility] CLIA [id number] [address] [place] [address] 97818 Lymphocytes (Bld) [#/Vol] 1.82 10*3/uL Normal 1.00-4.00 [facility] Comment on above: Order Comment: Speci men Type: BLOOD SPECIMEN Ordering Facility: [facility] Address: [address] [address] Performed By: #### 5 7021-8 #### [facility] CLIA [id number] [address] [place] [address] 34277 Lymphocytes/100 WBC (Bld) 26.7 % Normal [facility] Comment on above: Order Comment: Speci men Type: BLOOD SPECIMEN Ordering Facility: [facility] Address: [address] [address] Performed By: #### 5 7021-8 #### [facility] CLIA [id number] [address] [place] [address] 81960 MCH (RBC) [Entitic mass] 40.1 pg High 26.0-34.0 [facility] Comment on above: Order Comment: Speci men Type: BLOOD SPECIMEN Ordering Facility: [facility] Address: [address] [address] Performed By: #### 5 7021-8 #### [facility] CLIA [id number] [address] [place] [address] 70380 MCHC (RBC) [Mass/Vol] 33.3 g/dL Normal 30.5-36.0 [facility] Comment on above: Order Comment: Speci men Type: BLOOD SPECIMEN Ordering Facility: [facility] Address: [address] [address] Performed By: #### 5 7021-8 #### [facility] CLIA [id number] [address] [place] [address] 36423 MCV (RBC) [Entitic vol] 120.7 fL High 80.0-100.0 [facility] Comment on above: Order Comment: Speci men Type: BLOOD SPECIMEN Ordering Facility: [facility] Address: [address] [place] [address] Performed By: #### 5 7021-8 #### [facility] CLIA [id number] [address] [place] [address] 21908 Monocytes (Bld) [#/Vol] 0.56 10*3/uL Normal <0.87 [facility] Comment on above: Order Comment: Speci men Type: BLOOD SPECIMEN Ordering Facility: [facility] Address: [address] [address] Performed By: #### 5 7021-8 #### [facility] CLIA [id number] [address] [place] [address] 73567 Monocytes/100 WBC (Bld) 8.2 % Normal [facility] Comment on above: Order Comment: Speci men Type: BLOOD SPECIMEN Ordering Facility: [facility] Address: [address] [address] Performed By: #### 5 7021-8 #### [facility] CLIA [id number] [address] [place] [address] 21426 Neutrophils (Bld) [#/Vol] 4.27 10*3/uL Normal 1.45-7.50 [facility] Comment on above: Order Comment: Speci men Type: BLOOD SPECIMEN Ordering Facility: [facility] Address: [address] [address] Performed By: #### 5 7021-8 #### [facility] CLIA [id number] [address] [place] [address] 49132 Neutrophils/100 WBC (Bld) 62.6 % Normal [facility] Comment on above: Order Comment: Speci men Type: BLOOD SPECIMEN Ordering Facility: [facility] Address: [address] [address] Performed By: #### 5 7021-8 #### [facility] CLIA [id number] [address] [place] [address] Nucleated RBC (Bld) [#/Vol] 10*3/uL Normal <0.01 [facility] Comment on above: Order Comment: Speci men Type: BLOOD SPECIMEN Ordering Facility: [facility] Address: [address] [address] Performed By: #### 5 7021-8 #### [facility] CLIA [id number] [address] [place] [address] 32932 Nucleated RBC/100 WBC (Bld) [Ratio] 0.0 /100 WBC Normal [facility] Comment on above: Order Comment: Speci men Type: BLOOD SPECIMEN Ordering Facility: [facility] Address: [address] [place] [address] Performed By: #### 5 7021-8 #### [facility] CLIA [id number] [address] [place] [address] 69989 Platelet mean volume (Bld) [Entitic vol] 9.9 fL Normal 9.0-12.7 [facility] Comment on above: Order Comment: Speci men Type: BLOOD SPECIMEN Ordering Facility: [facility] Address: [address] [place] [address] Performed By: #### 5 7021-8 #### [facility] CLIA [id number] [address] [place] [address] 99621 Platelets (Bld) [#/Vol] 580 10*3/uL High 150-400 [facility] Comment on above: Order Comment: Speci men Type: BLOOD SPECIMEN Ordering Facility: [facility] Address: [address] [place] [address] Performed By: #### 5 7021-8 #### [facility] CLIA [id number] [address] [place] [address] 29869 RBC (Bld) [#/Vol] 3.34 10*6/uL Low 3.90-5.20 [facility] Comment on above: Order Comment: Speci men Type: BLOOD SPECIMEN Ordering Facility: [facility] Address: [place] [address] Performed By: #### 5 7021-8 #### [facility] CLIA [id number] [address] [place] [address] 19666 WBC (Bld) [#/Vol] 6.82 10*3/uL Normal 3.70-11.00 [facility] Comment on above: Order Comment: Speci men Type: BLOOD SPECIMEN Ordering Facility: [facility] Address: [place] [address] Performed By: #### 5 7021-8 #### [facility] CLIA [id number] [address] [place] [address] 67444 CNNURSEon 04-08-2023 CNNURSE Nurse Visit (HEMASA) JOSEFA CASTILLO ([id number]) 1940 F Date Time Provider Department 04/08/23 10:30 AM MARTHA NURSE AYAKA DENT During your visit today, we recorded the following information about you: Janeth Bright MA 04/08/2023 11:15 AM Signed Patient Identification confirmed: yes. Injection given and documented on DEC per provider order. Janeth Bright MA Referring Provider: ROD ROMAN [[id number]] Allergies As of Date: 04/08/2023 Noted Allergy [...] vitamin B12 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] Order(s):N NURSING COMMUNICATION [1976999] Order #: [id number]: 1 STANDING [] cyanocobalamin 1,000 mcg injectionDisp: [...] deficie*09/02/2018 Visit Notes: >> Janeth Bright MA [facility] Apr 08, 2023 11:14 AM Status: Signed Patient Identification confirmed: yes. Injection given and documented on DEC per provider order. Janeth Bright MA Prescriptions ordered this encounter Disp Refills Start End CYANOCOBALAMIN (VIT B-12) 1,000 MCG/* 04/08/2023 04/08/2023 Route: INTRAMUSCULA SODIUM CHLORIDE 0.9 % INTRAVENOUS SO* 04/08/2023 Cmt: Inform physician Route: INTRAVENOUS Encounter Status:Closed by JANETH BRIGHT on 04/08/23 [facility] CNOVSPon 04-08-2023 CNOVSP Visit (SP) Office (HEMASA) JOSEFA CASTILLO ([id number]) 1940 F Date Time Provider Department 04/08/23 10:15 AM ROD ROMAN During your visit today, we recorded the following information about you: Temperature Pulse Respiration Blood pressure 97.8 degrees 77/minute 16/minute 161/74 Weight Height 56.7 kg 1.575 m Rod Roman MD 04/11/2023 2:03 PM Signed NAME: Josefa Castillo CLINIC NO.: [id number] DATE OF SERVICE: April 08, 2023 (Carlos) [...] found to have thrombocytosis while living in [place]. She has been on various dosing through [...] Difficulty with vision Need records from right mormon melanoma. Continues B12 shots every 8 weeks [...] the left side of head over the mormon and into the jaw. No vision changes associated with pain. Intermittent and dull and pounding. Right mormon at the corner of her eye lid [...] energy. U (more content not included)... Normal [facility] Comprehensive metabolic 2000 panelon 04-08-2023 Albumin [Mass/Vol] 4.4 g/dL Normal 3.9-4.9 [facility] Comment on above: Order Comment: Speci men Type: BLOOD SPECIMEN Ordering Facility: [facility] Address: [address] [address] Performed By: #### 2 38, 0 #### [facility] CLIA [id number] [address] [place] [address] 59096 ALP [Catalytic activity/Vol] 60 U/L Normal 34-123 [facility] Comment on above: Order Comment: Speci men Type: BLOOD SPECIMEN Ordering Facility: [facility] Address: [address] Performed By: #### 2 4323-06, 2531-0 #### [facility] CLIA [id number] [address] [place] [address] 23872 ALT [Catalytic activity/Vol] 14 U/L Normal 7-38 [facility] Comment on above: Order Comment: Speci men Type: BLOOD SPECIMEN Ordering Facility: [facility] Address: [address] Performed By: #### 2 8, 2531-0 #### [facility] CLIA [id number] [address] [place] [address] 24014 Anion gap [Moles/Vol] 9 mmol/L Normal 9-18 [facility] Comment on above: Order Comment: Speci men Type: BLOOD SPECIMEN Ordering Facility: [facility] Address: [address] [address] Performed By: #### 2 38, 2531-0 #### [facility] CLIA [id number] [address] [place] [address] AST [Catalytic activity/Vol] 21 U/L Normal 13-35 [facility] Comment on above: Order Comment: Speci men Type: BLOOD SPECIMEN Ordering Facility: [facility] Address: [address] [place] [address] Performed By: #### 2 432-8, 2531-0 #### [facility] CLIA [id number] [address] [place] [address] 80790 Bilirubin [Mass/Vol] 0.5 mg/dL Normal 0.2-1.3 [facility] Comment on above: Order Comment: Speci men Type: BLOOD SPECIMEN Ordering Facility: [facility] Address: [address] [place] [address] Performed By: #### 2 8, 2531-0 #### [facility] CLIA [id number] [address] [place] [address] 86581 Calcium [Mass/Vol] 9.5 mg/dL Normal 8.5-10.2 [facility] Comment on above: Order Comment: Speci men Type: BLOOD SPECIMEN Ordering Facility: [facility] Address: [address] [place] [address] Performed By: #### 2 8, 2531-0 #### [facility] CLIA [id number] [address] [place] [address] 53208 Chloride [Moles/Vol] 102 mmol/L Normal 97-105 [facility] Comment on above: Order Comment: Speci men Type: BLOOD SPECIMEN Ordering Facility: [facility] Address: [address] [place] [address] Performed By: #### 2 4328, 2531-0 #### [facility] CLIA [id number] [address] [place] [address] 54549 CO2 [Moles/Vol] 27 mmol/L Normal 22-30 [facility] Comment on above: Order Comment: Speci men Type: BLOOD SPECIMEN Ordering Facility: [facility] Address: [address] [id number] Performed By: #### 2 4323-8, 2531-0 #### [facility] CLIA [id number] [address] [place] [address] 64040 Creatinine [Mass/Vol] 0.88 mg/dL Normal 0.58-0.96 [facility] Comment on above: Order Comment: Speci men Type: BLOOD SPECIMEN Ordering Facility: [facility] Address: [address] [address] Performed By: #### 2 4323-8, 2531-0 #### [facility] CLIA [id number] [address] [place] [address] 38302 ESTIMATED GLOMERULAR FILTRATION RATE 66 mL/min/1.73m??? Normal >=60 [facility] Comment on above: Order Comment: Speci men Type: BLOOD SPECIMEN Ordering Facility: [facility] Address: [address] [place] [address] Result Comment: Esmer mated Glomerular Filtration Rate [...] Performed By: #### 2 4323-8, 0 #### [facility] CLIA [id number] [address] [place] [address] 00722 Glucose [Mass/Vol] 106 mg/dL High 74-99 [facility] Comment on above: Order Comment: Kikai pranay Type: BLOOD SPECIMEN Ordering Facility: [facility] Address: [address] [place] [address] Result Comment: The [place] [employer] (ADA) provides guidance for cutoff [...] Standards of Medical Care in Diabetes 2016, [place] [employer]. Diabetes Care. 2016.39(Suppl 1). Performed By: #### 2 8, 0 #### [facility] CLIA [id number] [address] [place] [address] 79986 Potassium [Moles/Vol] 4.3 mmol/L Normal 3.7-5.1 [facility] Comment on above: Order Comment: Speci men Type: BLOOD SPECIMEN Ordering Facility: [facility] Address: [address] [place] [address] Performed By: #### 2 4323-06, #### [facility] CLIA [id number] [address] [place] [address] 91649 Protein [Mass/Vol] 6.7 g/dL Normal 6.3-8.0 [facility] Comment on above: Order Comment: Speci men Type: BLOOD SPECIMEN Ordering Facility: [facility] Address: [address] [place] [address] Performed By: #### 2 4323-06, 0 #### [facility] CLIA [id number] [address] [place] [address] 71798 Sodium [Moles/Vol] 138 mmol/L Normal 136-144 [facility] Comment on above: Order Comment: Speci men Type: BLOOD SPECIMEN Ordering Facility: [facility] Address: [address] [place] [address] Performed By: #### 2 4323-06, 0 #### [facility] CLIA [id number] [address] [place] [address] 36911 Urea nitrogen [Mass/Vol] 10 mg/dL Normal 7-21 [facility] Comment on above: Order Comment: Speci men Type: BLOOD SPECIMEN Ordering Facility: [facility] Address: [address] [id number] Performed By: #### 2 4323-8, 2531-0 #### [facility] CLIA [id number] [address] [place] [address] LDH SerPl-cCncon 04-08-2023 LDH [Catalytic activity/Vol] 215 U/L High 135-214 [facility] Comment on above: Order Comment: Speci men Type: BLOOD SPECIMEN Ordering Facility: [facility] Address: [address] [id number] Result Comment: Hemo lysis present. The origin [...] Performed By: #### 2 4323-8, 2531-0 #### [facility] CLIA [id number] [address] [place] [address] 73933 Telemedicineon 02-19-2023 Telemedicine [id number] Chloe Castillo 1940 F Date Provider Department Center 02/19/2023 LINA IZAGUIRRE [facility] Family History Problem Relation Age of Onset Breast cancer Mother Diabetes Mother Diabetes Father Family Status - Relation Status Age at Mother Father Level of Service:15789 IA PHYS/QHP TELEPHONE EVALUATION 11-20 MIN Reason for Visit and Comments: Coronary Artery Disease [187] Hypertension [267593] Telehealth Phone Visit [872] Normal [facility] CBC AUTO DIFFon 01-25-2023 BASO # 0.1 103/ul Normal 0.0-0.1 [facility] Comment on above: Performed By: #### C BC #### [facility] [address] [address] [address] Dianna Alcocer Basophils/100 WBC (Bld) 0.6 % Normal 0.2-2.0 [facility] Comment on above: Performed By: #### C BC #### [facility] [address] [address] [address] Dianna Alcocer EO # 0.1 103/ul Normal 0.0-0.7 [facility] Comment on above: Performed By: #### C BC #### [facility] [address] [place] [address] Dr. Dianna Alcocer Eosinophils/100 WBC (Bld) 0.7 % Critically low 0.9-7.0 [facility] Comment on above: Performed By: #### C BC #### [facility] [address] [place] [address] Dr. Dianna Alcocer Erythrocyte distribution width (RBC) [Ratio] 13.4 % Normal 11.0-15.0 [facility] Comment on above: Performed By: #### C BC #### [facility] [address] [place] [address] Dr. Dianna Alcocer Hematocrit (Bld) [Volume fraction] 38.9 % Normal 36.0-48.0 [facility] Comment on above: Performed By: #### C BC #### [facility] [address] [place] [address] Dr. Dianna Alcocer Hemoglobin (Bld) [Mass/Vol] 13.2 g/dL Normal 12.0-16.0 [facility] Comment on above: Performed By: #### C BC #### [facility] [address] [place] [address] Dr. Dianna Alcocer IG # 0.03 10e3/ul Normal 0.00-0.03 [facility] Comment on above: Performed By: #### C BC #### [facility] [address] [place] [address] Dr. Dianna Alcocer IG % 0.4 % Normal 0.0-0.5 [facility] Comment on above: Performed By: #### C BC #### [facility] [address] [place] [address] Dr. Dianna Alcocer LYMPH # 1.4 103/ul Normal 1.2-3.8 [facility] Comment on above: Performed By: #### C BC #### [facility] [address] [place] [address] Dr. Dianna Alcocer Lymphocytes/100 WBC (Bld) 17.0 % Critically low 20.5-60.0 [facility] Comment on above: Performed By: #### C BC #### [facility] Laboratory [address] [place] [address] Dr. Dinana Alcocer MANUAL DIFF REQ NO Normal [facility] Comment on above: Performed By: #### C BC #### [facility] [address] [place] [address] Dr. Dianna Alcocer MCH (RBC) [Entitic mass] 39.6 pg Critically high 26.7-34.0 [facility] Comment on above: Performed By: #### C BC #### [facility] [address] [place] [address] Dr. Dianna Alcocer MCHC (RBC) [Mass/Vol] 33.9 g/dL Normal 29.9-35.2 [facility] Comment on above: Performed By: #### C BC #### [facility] [address] [place] [address] Dr. Dianna Alcocer MCV (RBC) [Entitic vol] 116.8 fL Critically high 81.0-99.0 [facility] Comment on above: Performed By: #### C BC #### [facility] [address] [place] [address] Dr. Dianna Alcocer MONO # 0.6 103/ul Normal 0.3-0.8 [facility] Comment on above: Performed By: #### C BC #### [facility] [address] [place] [address] Dr. Dianna Alcocer Monocytes/100 WBC (Bld) 7.5 % Normal 1.7-12.0 [facility] Comment on above: Performed By: #### C BC #### [facility] [address] [place] [address] Dr. Dianna Alcocer NEUT # 5.9 103/ul Normal 1.4-6.5 [facility] Comment on above: Performed By: #### C BC #### [facility] [address] [address] [address] Dianna Alcocer Neutrophils/100 WBC (Bld) 73.8 % Normal 43.0-75.0 [facility] Comment on above: Performed By: #### C BC #### [facility] [address] [address] [address] Dianna Alcocer Platelet mean volume (Bld) [Entitic vol] 9.9 fL Normal 9.5-13.5 [facility] Comment on above: Performed By: #### C BC #### [facility] [address] [address] [address] Dianna Alcocer PLT 576 103/ul Critically high 150-450 [facility] Comment on above: Performed By: #### C BC #### [facility] [address] [place] [address] Dr. Dianna Alcocer RBC 3.33 106/ul Critically low 4.20-5.40 [facility] Comment on above: Performed By: #### C BC #### [facility] [address] [place] [address] Dr. Dianna Alcocer WBC 8.0 103/ul Normal 4.0-11.0 [facility] Comment on above: Performed By: #### C BC #### [facility] [address] [place] [address] Dr. Dianna Alcocer LIPID PROFILEon 01-25-2023 CHOL-HDL RATIO NORM SEE BELOW Normal [facility] Comment on above: Result Comment: 3.3 - 4.4 LOW RISK 4.4 - 7.1 AVERAGE RISK 7.1 - 11.0 MODERATE RISK >11.0 HIGH RISK Performed By: #### C MADM, BNP, CMP #### [facility] [address] [place] [address] Dr. Dianna Alcocer Cholesterol [Mass/Vol] 123 mg/dL Normal <=200 [facility] Comment on above: Performed By: #### C MADM, BNP, CMP #### [facility] [address] [place] [address] Dr. Dianna Alcocer Cholesterol in HDL [Mass/Vol] 60 mg/dL Normal 40-60 [facility] Comment on above: Performed By: #### C MADM, BNP, CMP #### [facility] [address] [address] [address] Dianna Alcocer Cholesterol in LDL [Mass/Vol] 50.4 mg/dL Normal [facility] Comment on above: Performed By: #### C MADM, BNP, CMP #### [facility] [address] [address] [address] Dianna Alcocer Cholesterol.total/C holesterol in HDL [Mass ratio] 2.1 {ratio} Normal [facility] Comment on above: Performed By: #### C MADM, BNP, CMP #### [facility] [address] [address] [address] Dianna Alcocer HDL NORMAL > or = 60 mg/dl - LO W CARDIOVASCULAR RISK <40 mg/dl - HIGH CARDIOVASCULAR RISK Normal [facility] Comment on above: Performed By: #### C MADM, BNP, CMP #### [facility] [address] [address] [address] Dianna Alcocer LDL CALC NORMAL SEE BELOW Normal [facility] Comment on above: Result Comment: <100 mg/dl OPTIMAL 100 - 129 mg/dl NEAR OR ABOVE OPTIMAL 130 - 159 mg/dl BORDERLINE HIGH 160 - 189 mg/dl HIGH >190 mg/dl VERY HIGH Performed By: #### C MADM, BNP, CMP #### [facility] [address] [address] [address] Dianna Alcocer Triglyceride [Mass/Vol] 63 mg/dL Normal <=150 [facility] Comment on above: Performed By: #### C MADM, BNP, CMP #### [facility] [address] [address] [address] Dianna Alcocer VLDL CALC 12.6 mg/dL Normal [facility] Comment on above: Performed By: #### C MADM, BNP, CMP #### [facility] [address] [address] [address] Dianna Alcocer LIVER PROFILEon 01-25-2023 Albumin [Mass/Vol] 4.0 g/dL Normal 3.4-5.0 [facility] Comment on above: Performed By: #### C MADM, BNP, CMP #### [facility] [address] [place] [address] Dr. Dianna Alcocer Albumin/Globulin [Mass ratio] 1.4 {ratio} Normal [facility] Comment on above: Performed By: #### C MADM, BNP, CMP #### [facility] [address] [place] [address] Dr. Dianna Alcocer ALP [Catalytic activity/Vol] 74 U/L Normal 46-116 [facility] Comment on above: Performed By: #### C MADM, BNP, CMP #### [facility] [address] [place] [address] Dr. Dianna Alcocer ALT [Catalytic activity/Vol] 21 U/L Normal 14-59 [facility] Comment on above: Performed By: #### C MADM, BNP, CMP #### [facility] [address] [place] [address] Dr. Dianna Alcocer AST [Catalytic activity/Vol] 18 U/L Normal 15-37 [facility] Comment on above: Performed By: #### C MADM, BNP, CMP #### [facility] [address] [place] [address] Dr. Dianna Alcocer BILI, CONJUGATED 0.1 mg/dL Normal 0.0-0.2 [facility] Comment on above: Performed By: #### C MADM, BNP, CMP #### [facility] [address] [place] [address] Dr. Dianna Alcocer Bilirubin [Mass/Vol] 0.5 mg/dL Normal 0.2-1.0 [facility] Comment on above: Performed By: #### C MADM, BNP, CMP #### [facility] [address] [place] [address] Dr. Dianna Alcocer Globulin (S) [Mass/Vol] 2.9 g/dL Normal [facility] Comment on above: Performed By: #### C MADM, BNP, CMP #### [facility] [address] [place] [address] Dr. Dianna Alcocer Protein [Mass/Vol] 6.9 g/dL Normal 6.4-8.2 [facility] Comment on above: Performed By: #### C MADM, BNP, CMP #### [facility] [address] [address] [address] Dianna Alcocer PROF CHEM 8 (BAS METB)on Anion gap [Moles/Vol] 14.7 mmol/L Normal [facility] Comment on above: Performed By: #### C MADM, BNP, CMP #### [facility] [address] [address] [address] Dianna Alcocer Calcium [Mass/Vol] 8.9 mg/dL Normal 8.5-10.1 [facility] Comment on above: Performed By: #### C MADM, BNP, CMP #### [facility] [address] [place] [address] Dr. Dianna Alcocer Chloride [Moles/Vol] 103 mmol/L Normal 98-107 [facility] Comment on above: Performed By: #### C MADM, BNP, CMP #### [facility] [address] [address] [address] Dianna Alcocer CO2 [Moles/Vol] 28.6 mmol/L Normal 21.0-32.0 [facility] Comment on above: Performed By: #### C MADM, BNP, CMP #### [facility] [address] [place] [address] Dr. Dianna Alcocer Creatinine [Mass/Vol] 0.88 mg/dL Normal 0.55-1.02 [facility] Comment on above: Performed By: #### C MADM, BNP, CMP #### [facility] [address] [address] [address] Dianna Alcocer EGFR-AF SIERRA LEONEAN >60 Normal >=60 [facility] Comment on above: Performed By: #### C MADM, BNP, CMP #### [facility] [address] [place] [address] Dr. Dianna Alcocer EGFR-NON AF SIERRA LEONEAN >60 Normal >=60 [facility] Comment on above: Performed By: #### C MADM, BNP, CMP #### [facility] [address] [place] [address] Dr. Dianna Alcocer Glucose [Mass/Vol] 110 mg/dL Critically high 74-106 [facility] Comment on above: Performed By: #### C MADM, BNP, CMP #### [facility] [address] [place] [address] Dr. Dianna Alcocer Potassium [Moles/Vol] 4.3 mmol/L Normal 3.5-5.1 [facility] Comment on above: Performed By: #### C MADM, BNP, CMP #### [facility] [address] [place] [address] Dr. Dianna Alcocer Sodium [Moles/Vol] 142 mmol/L Normal 136-145 [facility] Comment on above: Performed By: #### C MADM, BNP, CMP #### [facility] [address] [place] [address] Dr. Dianna Alcocer Urea nitrogen [Mass/Vol] 11.0 mg/dL Normal 7.0-18.0 [facility] Comment on above: Performed By: #### C MADM, BNP, CMP #### [facility] [address] [place] [address] Dr. Dianna Alcocer Urea nitrogen/Creatinine [Mass ratio] 12.5 mg/mg Normal [facility] Comment on above: Performed By: #### C MADM, BNP, CMP #### [facility] [address] [place] [address] Dr. Dianna Alcocer BNPon 08-24-2022 Natriuretic peptide B (Bld) [Mass/Vol] 469.0 pg/mL Normal <=1,800.0 [facility] Comment on above: Performed By: #### C MADM, BNP, CMP #### [facility] [address] [place] [address] Dr. Dianna Alcocer CARDIAC KEMAR ADMITon 022 CK [Catalytic activity/Vol] 145 U/L Normal 26-192 [facility] Comment on above: Performed By: #### C MADM, BNP, CMP #### [facility] [address] [address] [address] Dianna Alcocer CK.MB [Mass/Vol] 3.17 ng/mL Normal <=3.60 [facility] Comment on above: Performed By: #### C MADM, BNP, CMP #### [facility] [address] [place] [address] Dr. Dianna Alcocer HSTROP 8.4 pg/mL Normal 4.0-51.3 [facility] Comment on above: Result Comment: CUT- OFF POINTS HAVE BEEN ESTABLISHED BASED ON THE FOURTH UNIVERSAL DEFINITIONS OF MYOCARDIAL INFARCTION. THE UPPER REFERENCE LIMIT (URL) OF TROPONIN, DEFINED THE 99TH PERCENTILE OF cTnI DISTRIBUTION IN A REFERENCE POPULATION, HAS BEEN CONFIRMED THE DECISION THRESHOLD FOR FL DIAGNOSIS. Performed By: #### C MADM, BNP, CMP #### [facility] [address] [place] [address] Dr. Dianna Alcocer BOB 155 ng/mL Critically high 9-82 [facility] Comment on above: Performed By: #### C MADM, BNP, CMP #### [facility] [address] [place] [address] Dr. Dianna Alcocer CBC AUTO DIFFon 08-24-2022 BASO # 0.1 103/ul Normal 0.0-0.1 [facility] Comment on above: Performed By: #### C BC #### [facility] [address] [place] [address] Dr. Dianna Alcocer Basophils/100 WBC (Bld) 1.6 % Normal 0.2-2.0 [facility] Comment on above: Performed By: #### C BC #### [facility] [address] [place] [address] Dr. Dianna Alcocer EO # 0.1 103/ul Normal 0.0-0.7 [facility] Comment on above: Performed By: #### C BC #### [facility] [address] [place] [address] Dr. Dianna Alcocer Eosinophils/100 WBC (Bld) 1.6 % Normal 0.9-7.0 [facility] Comment on above: Performed By: #### C BC #### [facility] [address] [place] [address] Dr. Dianna Alcocer Erythrocyte distribution width (RBC) [Ratio] 13.1 % Normal 11.0-15.0 [facility] Comment on above: Performed By: #### C BC #### [facility] [address] [place] [address] Dr. Dianna Alcocer Hematocrit (Bld) [Volume fraction] 38.6 % Normal 36.0-48.0 [facility] Comment on above: Performed By: #### C BC #### [facility] [address] [place] [address] Dr. Dianna Alcocer Hemoglobin (Bld) [Mass/Vol] 13.2 g/dL Normal 12.0-16.0 [facility] Comment on above: Performed By: #### C BC #### [facility] [address] [place] [address] Dr. Dianna Alcocer IG # 0.01 10e3/ul Normal 0.00-0.03 [facility] Comment on above: Performed By: #### C BC #### [facility] [address] [place] [address] Dr. Dianna Alcocer IG % 0.2 % Normal 0.0-0.5 [facility] Comment on above: Performed By: #### C BC #### [facility] [address] [place] [address] Dr. Dianna Alcocer LYMPH # 1.7 103/ul Normal 1.2-3.8 [facility] Comment on above: Performed By: #### C BC #### [facility] [address] [place] [address] Dr. Dianna Alcocer Lymphocytes/100 WBC (Bld) 39.3 % Normal 20.5-60.0 [facility] Comment on above: Performed By: #### C BC #### [facility] [address] [place] [address] Dr. Dianna Alcocer MANUAL DIFF REQ NO Normal [facility] Comment on above: Performed By: #### C BC #### [facility] [address] [place] [address] Dr. Dianna Alcocer MCH (RBC) [Entitic mass] 41.4 pg Critically high 26.7-34.0 [facility] Comment on above: Performed By: #### C BC #### [facility] [address] [place] [address] Dr. Dianna Alcocer MCHC (RBC) [Mass/Vol] 34.2 g/dL Normal 29.9-35.2 [facility] Comment on above: Performed By: #### C BC #### [facility] [address] [place] [address] Dr. Dianna Alcocer MCV (RBC) [Entitic vol] 121.0 fL Critically high 81.0-99.0 [facility] Comment on above: Performed By: #### C BC #### [facility] [address] [place] [address] Dr. Dianna Alcocer MONO # 0.5 103/ul Normal 0.3-0.8 [facility] Comment on above: Performed By: #### C BC #### [facility] [address] [place] [address] Dr. Dianna Alcocer Monocytes/100 WBC (Bld) 12.0 % Normal 1.7-12.0 [facility] Comment on above: Performed By: #### C BC #### [facility] [address] [place] [address] Dr. Dianna Alcocer NEUT # 2.0 103/ul Normal 1.4-6.5 [facility] Comment on above: Performed By: #### C BC #### [facility] [address] [place] [address] Dr. Dianna Alcocer Neutrophils/100 WBC (Bld) 45.3 % Normal 43.0-75.0 [facility] Comment on above: Performed By: #### C BC #### [facility] [address] [place] [address] Dr. Dianna Alcocer Platelet mean volume (Bld) [Entitic vol] 10.0 fL Normal 9.5-13.5 [facility] Comment on above: Performed By: #### C BC #### [facility] [address] [address] [address] Dianna Alcocer PLT 228 103/ul Normal 150-450 [facility] Comment on above: Performed By: #### C BC #### [facility] [address] [address] [address] Dianna Alcocer RBC 3.19 106/ul Critically low 4.20-5.40 [facility] Comment on above: Performed By: #### C BC #### [facility] [address] [address] [address] Dianna Alcocer WBC 4.3 103/ul Normal 4.0-11.0 [facility] Comment on above: Performed By: #### C BC #### [facility] [address] [place] [address] Dr. Dianna Alcocer CULTURE URINEon 08-24-2022 CULTURE URINE Culture Observations : LIGHT GROWTH OF MIXED GENITAL SATHYA. NO POTENTIAL PATHOGENS SEEN. Normal [facility] Comment on above: Performed By: #### C MADM, BNP, CMP #### [facility] [address] [place] [address] Dr. Dianna Alcocer DRUG SCREEN RAPID (URINE)on 08-24-2022 AMP Negative Normal NEGATIVE [facility] Comment on above: Performed By: #### D EDEN CARRASQUILLO, ERUR #### [facility] [address] [place] [address] Dr. Dianna Alcocer BAR Negative Normal NEGATIVE [facility] Comment on above: Performed By: #### D EDEN CARRASQUILLO, ERUR #### [facility] [address] [place] [address] Dr. Dianna Alcocer BUP Negative Normal NEGATIVE [facility] Comment on above: Performed By: #### D EDEN CARRASQUILLO ERUR #### [facility] [address] [place] [address] Dr. Dianna Alcocer BZO Negative Normal NEGATIVE [facility] Comment on above: Performed By: #### D EDEN CARRASQUILLO, ERUR #### [facility] [address] [place] [address] Dr. Dianna Alcocer HASMUKH Negative Normal NEGATIVE [facility] Comment on above: Performed By: #### D EDEN CARRASQUILLO, ERUR #### [facility] [address] [place] [address] Dr. Dianna Alcocer CUT-OFFS SEE BELOW Normal [facility] Comment on above: Result Comment: AMP (Amphetamine): [...] By: #### D EDEN CARRASQUILLO, ERUR #### [facility] [address] [place] [address] Dr. Dianna Alcocer DRUG CUT HEADER DRUG CLASS TEST SYST EM CUT-OFF CONCENTRATIONS ARE FOLLOWS: Normal [facility] Comment on above: Performed By: #### D EDEN CARRASQUILLO, ERUR #### [facility] [address] [place] [address] Dr. Dianna Alcocer mAMP Negative Normal NEGATIVE [facility] Comment on above: Performed By: #### D EDEN CARRASQUILLO ERUR #### [facility] [address] [place] [address] Dr. Dianna Alcocer MTD Negative Normal NEGATIVE [facility] Comment on above: Performed By: #### D EDEN CARRASQUILLO, ERUR #### [facility] [address] [place] [address] Dr. Dianna Alcocer OPI Positive Abnormal NEGATIVE [facility] Comment on above: Performed By: #### D EDEN CARRASQUILLO, ERUR #### [facility] [address] [place] [address] Dr. Dianna Alcocer OXY Negative Normal NEGATIVE [facility] Comment on above: Performed By: #### D JUNAID CARRASQUILLORO, ERUR #### [facility] [address] [address] [address] Dianna Alcocer PCP Negative Normal NEGATIVE [facility] Comment on above: Performed By: #### D LISSY CARRASQUILLOICRO, ERUR #### [facility] [address] [address] [address] Dianna Alcocer PPX Negative Normal NEGATIVE [facility] Comment on above: Performed By: #### D LISSY CARRASQUILLOICRO, ERUR #### [facility] [address] [address] [address] Dianna Alcocer TCA Negative Normal NEGATIVE [facility] Comment on above: Performed By: #### D JUNAID CARRASQUILLORO, ERUR #### [facility] [address] [place] [address] Dr. Dianna Alcocer THC Negative Normal NEGATIVE [facility] Comment on above: Performed By: #### D JUNAID CARRASQUILLORO, ERUR #### [facility] [address] [place] [address] Dr. Dianna Alcocer ER URINE PROFILEon 2 Bilirubin Ql (U) Negative Normal NEGATIVE [facility] Comment on above: Performed By: #### D JUNAID CARRASQUILLORO, ERUR #### [facility] [address] [address] [address] Dianna Alcocer Clarity (U) CLEAR Normal CLEAR [facility] Comment on above: Performed By: #### D JUNAID CARRASQUILLORO, ERUR #### [facility] [address] [address] [address] Dianna Alcocer Color (U) LT. YELLOW Normal YELLOW [facility] Comment on above: Performed By: #### D JUNAID CARRASQUILLORO, ERUR #### [facility] [address] [address] [address] Dianna Alcocer ERUAHD A micrscopic examination will be performed if indicated. Normal [facility] Comment on above: Performed By: #### D EDEN CARRASQUILLO, ERUR #### [facility] [address] [address] [address] Dianna Alcocer Glucose Ql (U) Negative Normal NEGATIVE [facility] Comment on above: Performed By: #### D EDEN CARRASQUILLO, ERUR #### [facility] [address] [address] [address] Dianna Alcocer Hemoglobin Ql (U) MODERATE Abnormal NEGATIVE [facility] Comment on above: Performed By: #### D EDEN CARRASQUILLO, ERUR #### [facility] [address] [address] [address] Dianna Alcocer Ketones Ql (U) Negative Normal NEGATIVE [facility] Comment on above: Performed By: #### D EDEN CARRASQUILLO, ERUR #### [facility] [address] [address] [address] Dianna Alcocer LEUKOCYTES SMALL Abnormal NEGATIVE [facility] Comment on above: Performed By: #### D EDEN CARRASQUILLO, ERUR #### [facility] [address] [address] [address] Dianna Alcocer Nitrite Ql (U) Negative Normal NEGATIVE [facility] Comment on above: Performed By: #### D EDEN CARRASQUILLO, ERUR #### [facility] [address] [address] [address] Dianna Alcocer pH (U) 6.0 [pH] Normal 5-9 [facility] Comment on above: Performed By: #### D EDEN CARRASQUILLO, ERUR #### [facility] [address] [address] [address] Dianna Alcocer SPEC GRAVITY 1.020 Normal 1.005-<=1.025 [facility] Comment on above: Performed By: #### D EDEN CARRASQUILLO, ERUR #### [facility] [address] [address] [address] Dianna Alcocer UA PROTEIN Negative Normal NEGATIVE/ TRACE [facility] Comment on above: Performed By: #### D EDEN CARRASQUILLO, ERUR #### [facility] [address] [place] [address] Dr. Dianna Alcocer UR MICRO IND INDICATED Normal [facility] Comment on above: Performed By: #### D EDEN CARRASQUILLO, ERUR #### [facility] [address] [address] [address] Dianna Alcocer Urobilinogen Qn (U) 0.2 {Simone'U}/dL Normal 0.2 - 1. 0 [facility] Comment on above: Performed By: #### D EDEN CARRASQUILLO, ERUR #### [facility] [address] [place] [address] Dr. Dianna Alcocer PROF 14(COMP METB)on 022 Albumin [Mass/Vol] 4.0 g/dL Normal 3.4-5.0 [facility] Comment on above: Performed By: #### C MADM, BNP, CMP #### [facility] [address] [place] [address] Dr. Dianna Alcocer Albumin/Globulin [Mass ratio] 1.4 {ratio} Normal [facility] Comment on above: Performed By: #### C MADM, BNP, CMP #### [facility] [address] [place] [address] Dr. Dianna Alcocer ALP [Catalytic activity/Vol] 57 U/L Normal 46-116 [facility] Comment on above: Performed By: #### C MADM, BNP, CMP #### [facility] [address] [place] [address] Dr. Dianna Alcocer ALT [Catalytic activity/Vol] 15 U/L Normal 14-59 [facility] Comment on above: Performed By: #### C MADM, BNP, CMP #### [facility] [address] [place] [address] Dr. Dianna Alcocer Anion gap [Moles/Vol] 11.3 mmol/L Normal [facility] Comment on above: Performed By: #### C MADM, BNP, CMP #### [facility] [address] [place] [address] Dr. Dianna Alcocer AST [Catalytic activity/Vol] 16 U/L Normal 15-37 [facility] Comment on above: Performed By: #### C MADM, BNP, CMP #### [facility] [address] [address] [address] Dianna Alcocer Bilirubin [Mass/Vol] 0.6 mg/dL Normal 0.2-1.0 [facility] Comment on above: Performed By: #### C MADM, BNP, CMP #### [facility] [address] [address] [address] Dianna Alcocer Calcium [Mass/Vol] 8.6 mg/dL Normal 8.5-10.1 [facility] Comment on above: Performed By: #### C MADM, BNP, CMP #### [facility] [address] [place] [address] Dr. Dianna Alcocer Chloride [Moles/Vol] 100 mmol/L Normal 98-107 [facility] Comment on above: Performed By: #### C MADM, BNP, CMP #### [facility] [address] [place] [address] Dr. Dianna Alcocer CO2 [Moles/Vol] 28.4 mmol/L Normal 21.0-32.0 [facility] Comment on above: Performed By: #### C MADM, BNP, CMP #### [facility] [address] [place] [address] Dr. Dianna Alcocer Creatinine [Mass/Vol] 0.97 mg/dL Normal 0.55-1.02 [facility] Comment on above: Performed By: #### C MADM, BNP, CMP #### [facility] [address] [place] [address] Dr. Dianna Alcocer EGFR-AF SIERRA LEONEAN >60 Normal >=60 [facility] Comment on above: Performed By: #### C MADM, BNP, CMP #### [facility] [address] [place] [address] Dr. Dianna Alcocer EGFR-NON AF SIERRA LEONEAN 55 mL/min/1.73m2 Critically low >=60 [facility] Comment on above: Performed By: #### C MADM, BNP, CMP #### [facility] [address] [address] [address] Dianna Alcocer Globulin (S) [Mass/Vol] 2.9 g/dL Normal [facility] Comment on above: Performed By: #### C MADM, BNP, CMP #### [facility] [address] [address] [address] Dianna Alcocer Glucose [Mass/Vol] 86 mg/dL Normal 74-106 [facility] Comment on above: Performed By: #### C MADM, BNP, CMP #### [facility] [address] [address] [address] Dianna Alcocer Potassium [Moles/Vol] 3.7 mmol/L Normal 3.5-5.1 [facility] Comment on above: Performed By: #### C MADM, BNP, CMP #### [facility] [address] [place] [address] Dr. Dianna Alcocer Protein [Mass/Vol] 6.9 g/dL Normal 6.4-8.2 [facility] Comment on above: Performed By: #### C MADM, BNP, CMP #### [facility] [address] [address] [address] Dianna Alcocer Sodium [Moles/Vol] 136 mmol/L Normal 136-145 [facility] Comment on above: Performed By: #### C MADM, BNP, CMP #### [facility] [address] [address] [address] Dianna Alcocer Urea nitrogen [Mass/Vol] 9.0 mg/dL Normal 7.0-18.0 [facility] Comment on above: Performed By: #### C MADM, BNP, CMP #### [facility] [address] [place] [address] Dr. Dianna Alcocer Urea nitrogen/Creatinine [Mass ratio] 9.3 mg/mg Normal [facility] Comment on above: Performed By: #### C MADM, BNP, CMP #### [facility] [address] [place] [address] Dr. Dianna Alcocer URINE MICROSCOPIC ONLYon BACTERIA NONE SEEN Normal NONE SEEN [facility] Comment on above: Performed By: #### D EDEN CARRASQUILLO, ERUR #### [facility] [address] [place] [address] Dr. Dianna Alcocer Bacteria identified Cx Nom (U) INDICATED Normal [facility] Comment on above: Performed By: #### D EDEN CARRASQUILLO, ERUR #### [facility] [address] [place] [address] Dr. Dianna Alcocer CAST NONE SEEN Normal NONE SEEN [facility] Comment on above: Performed By: #### D EDEN CARRASQUILLO, ERUR #### [facility] [address] [place] [address] Dr. Dianna Alcocer Crystals LM Nom (Urine sed) NONE SEEN Normal NONE SEEN [facility] Comment on above: Performed By: #### D EDEN CARRASQUILLO, ERUR #### [facility] [address] [place] [address] Dr. Dianna Alcocer Epithelial cells LM Ql (Urine sed) FEW Abnormal NONE SEEN /RARE [facility] Comment on above: Performed By: #### D EDEN CARRASQUILLO, ERUR #### [facility] [address] [place] [address] Dr. Dianna Alcocer MUCOUS TRACE Abnormal NONE SEEN [facility] Comment on above: Performed By: #### D EDEN CARRASQUILLO, ERUR #### [facility] [address] [place] [address] Dr. Dianna Alcocer RBC 2-5 Abnormal 0-2 [facility] Comment on above: Performed By: #### D EDEN CARRASQUILLO, ERUR #### [facility] [address] [address] [address] Dianna Alcocer WBC 2-5 Abnormal NONE SEEN [facility] Comment on above: Performed By: #### D EDEN CARRASQUILLO, ERUR #### [facility] [address] [address] [address] Dianna Alcocer VIT B12 AND FOLATEon 022 Cobalamin (Vitamin B12) [Mass/Vol] 703.0 pg/mL Normal 193.0-986.0 [facility] Comment on above: Performed By: #### C MADM, BNP, CMP #### [facility] [address] [address] [address] Dianna Alcocer FOLATE 12.90 ng/mL Normal 8.60-58.90 [facility] Comment on above: Performed By: #### C MADM, BNP, CMP #### [facility] [address] [address] [address] Dianna Alcocer XR CHEST 1 Von [...] LUZ GRIDER Date: 2022-08-24 10:01 Normal [facility] CBC AUTO DIFFon 08-23-2022 BASO # 0.1 103/ul Normal 0.0-0.1 [facility] Comment on above: Performed By: #### C MADM, BNP, CMP #### [facility] [address] [address] [address] Dianna Alcocer Basophils/100 WBC (Bld) 1.2 % Normal 0.2-2.0 [facility] Comment on above: Performed By: #### C MADM, BNP, CMP #### [facility] [address] [address] [address] Dianna Alcocer EO # 0.1 103/ul Normal 0.0-0.7 [facility] Comment on above: Performed By: #### C MADM, BNP, CMP #### [facility] [address] [address] [address] Dianna Alcocer Eosinophils/100 WBC (Bld) 1.9 % Normal 0.9-7.0 [facility] Comment on above: Performed By: #### C MADM, BNP, CMP #### [facility] [address] [place] [address] Dr. Dianna Alcocer Erythrocyte distribution width (RBC) [Ratio] 12.9 % Normal 11.0-15.0 [facility] Comment on above: Performed By: #### C MADM, BNP, CMP #### [facility] [address] [place] [address] Dr. Dianna Alcocer Hematocrit (Bld) [Volume fraction] 40.4 % Normal 36.0-48.0 [facility] Comment on above: Performed By: #### C MADM, BNP, CMP #### [facility] [address] [place] [address] Dr. Dianna Alcocer Hemoglobin (Bld) [Mass/Vol] 13.9 g/dL Normal 12.0-16.0 [facility] Comment on above: Performed By: #### C MADM, BNP, CMP #### [facility] [address] [place] [address] Dr. Dianna Alcocer IG # 0.01 10e3/ul Normal 0.00-0.03 [facility] Comment on above: Performed By: #### C MADM, BNP, CMP #### [facility] [address] [place] [address] Dr. Dianna Alcocer IG % 0.2 % Normal 0.0-0.5 [facility] Comment on above: Performed By: #### C MADM, BNP, CMP #### [facility] [address] [place] [address] Dr. Dianna Alcocer LYMPH # 1.7 103/ul Normal 1.2-3.8 [facility] Comment on above: Performed By: #### C MADM, BNP, CMP #### [facility] [address] [place] [address] Dr. Dianna Alcocer Lymphocytes/100 WBC (Bld) 39.3 % Normal 20.5-60.0 [facility] Comment on above: Performed By: #### C MADM, BNP, CMP #### [facility] [address] [place] [address] Dr. Dianna Alcocer MANUAL DIFF REQ NO Normal [facility] Comment on above: Performed By: #### C MADM, BNP, CMP #### [facility] [address] [place] [address] Dr. Dianna Alcocer MCH (RBC) [Entitic mass] 41.0 pg Critically high 26.7-34.0 [facility] Comment on above: Performed By: #### C MADM, BNP, CMP #### [facility] [address] [place] [address] Dr. Dianna Alcocer MCHC (RBC) [Mass/Vol] 34.4 g/dL Normal 29.9-35.2 [facility] Comment on above: Performed By: #### C MADM, BNP, CMP #### [facility] [address] [place] [address] Dr. Dianna Alcocer MCV (RBC) [Entitic vol] 119.2 fL Critically high 81.0-99.0 [facility] Comment on above: Result Comment: 2+ m acrocytosis Performed By: #### C MADM, BNP, CMP #### [facility] [address] [place] [address] Dr. Dianna Alcocer MONO # 0.6 103/ul Normal 0.3-0.8 [facility] Comment on above: Performed By: #### C MADM, BNP, CMP #### [facility] [address] [place] [address] Dr. Dianna Alcocer Monocytes/100 WBC (Bld) 13.1 % Critically high 1.7-12.0 [facility] Comment on above: Performed By: #### C MADM, BNP, CMP #### [facility] [address] [place] [address] Dr. Dianna Alcocer NEUT # 1.9 103/ul Normal 1.4-6.5 [facility] Comment on above: Performed By: #### C MADM, BNP, CMP #### [facility] [address] [place] [address] Dr. Dianna Alcocer Neutrophils/100 WBC (Bld) 44.3 % Normal 43.0-75.0 [facility] Comment on above: Performed By: #### C MADM, BNP, CMP #### [facility] [address] [address] [address] Dianna Alcocer Platelet mean volume (Bld) [Entitic vol] 9.9 fL Normal 9.5-13.5 [facility] Comment on above: Performed By: #### C MADM, BNP, CMP #### [facility] [address] [address] [address] Dianna Alcocer PLT 274 103/ul Normal 150-450 [facility] Comment on above: Performed By: #### C MADM, BNP, CMP #### [facility] [address] [address] [address] Dianna Alcocer RBC 3.39 106/ul Critically low 4.20-5.40 [facility] Comment on above: Performed By: #### C MADM, BNP, CMP #### [facility] [address] [address] [address] Dianna Alcocer WBC 4.3 103/ul Normal 4.0-11.0 [facility] Comment on above: Performed By: #### C MADM, BNP, CMP #### [facility] [address] [place] [address] HEAD WO CONon [...] COLLIN COLEMAN Date: 2022-08-23 11:05 Normal [facility] CULTURE URINEon 08-23-2022 CULTURE URINE Culture Observations : No growth Normal [facility] Comment on above: Performed By: #### C MADM, BNP, CMP #### [facility] [address] [address] [address] Dianna Alcocer ER URINE PROFILEon 2 Bilirubin Ql (U) Negative Normal NEGATIVE [facility] Comment on above: Performed By: #### C MADM, BNP, CMP #### [facility] [address] [address] [address] Dianna Alcocer Clarity (U) SL CLOUDY Abnormal CLEAR [facility] Comment on above: Performed By: #### C MADM, BNP, CMP #### [facility] [address] [address] [address] Dianna Alcocer Color (U) LT. YELLOW Normal YELLOW [facility] Comment on above: Performed By: #### C MADM, BNP, CMP #### [facility] [address] [address] [address] Dianna EDMONDSON A micrscopic examination will be performed if indicated. Normal [facility] Comment on above: Performed By: #### C MADM, BNP, CMP #### [facility] [address] [address] [address] Dianna Alcocer Glucose Ql (U) Negative Normal NEGATIVE [facility] Comment on above: Performed By: #### C MADM, BNP, CMP #### [facility] [address] [address] [address] Dianna Alcocer Hemoglobin Ql (U) LARGE Abnormal NEGATIVE [facility] Comment on above: Performed By: #### C MADM, BNP, CMP #### [facility] [address] [address] [address] Dianna Alcocer Ketones Ql (U) Negative Normal NEGATIVE [facility] Comment on above: Performed By: #### C MADM, BNP, CMP #### [facility] [address] [address] [address] Dianna Alcocer LEUKOCYTES SMALL Abnormal NEGATIVE [facility] Comment on above: Performed By: #### C MADM, BNP, CMP #### [facility] [address] [address] [address] Dianna Alcocer Nitrite Ql (U) Negative Normal NEGATIVE [facility] Comment on above: Performed By: #### C MADM, BNP, CMP #### [facility] [address] [address] [address] Dianna Alcocer pH (U) 6.0 [pH] Normal 5-9 [facility] Comment on above: Performed By: #### C MADM, BNP, CMP #### [facility] [address] [place] [address] Dr. Dianna Alcocer SPEC GRAVITY 1.020 Normal 1.005-<=1.025 [facility] Comment on above: Performed By: #### C MADM, BNP, CMP #### [facility] [address] [place] [address] Dr. Dianna Alcocer UA PROTEIN Negative Normal NEGATIVE/ TRACE [facility] Comment on above: Performed By: #### C MADM, BNP, CMP #### [facility] [address] [place] [address] Dr. Dianna Alcocer UR MICRO IND INDICATED Normal [facility] Comment on above: Performed By: #### C MADM, BNP, CMP #### [facility] [address] [place] [address] Dr. Dianna Alcocer Urobilinogen Qn (U) 0.2 {Simone'U}/dL Normal 0.2 - 1. 0 [facility] Comment on above: Performed By: #### C MADM, BNP, CMP #### [facility] [address] [place] [address] Dr. Dianna Alcocer PROF 14(COMP METB)on 022 Albumin [Mass/Vol] 4.2 g/dL Normal 3.4-5.0 [facility] Comment on above: Performed By: #### H STROPN, CMP #### [facility] [address] [address] [address] Dianna Alcocer Albumin/Globulin [Mass ratio] 1.4 {ratio} Normal [facility] Comment on above: Performed By: #### H STROPN, CMP #### [facility] [address] [address] [address] Dianna Alcocer ALP [Catalytic activity/Vol] 65 U/L Normal 46-116 [facility] Comment on above: Performed By: #### H STROPN, CMP #### [facility] [address] [address] [address] Dianna Alcocer ALT [Catalytic activity/Vol] 16 U/L Normal 14-59 [facility] Comment on above: Performed By: #### H STROPN, CMP #### [facility] [address] [address] [address] Dianna Alcocer Anion gap [Moles/Vol] 10.6 mmol/L Normal [facility] Comment on above: Performed By: #### H STROPN, CMP #### [facility] [address] [address] [address] Dianna Alcocer AST [Catalytic activity/Vol] 20 U/L Normal 15-37 [facility] Comment on above: Performed By: #### H STROPN, CMP #### [facility] [address] [address] [address] Dianna Alcocer Bilirubin [Mass/Vol] 0.7 mg/dL Normal 0.2-1.0 [facility] Comment on above: Performed By: #### H STROPN, CMP #### [facility] [address] [address] [address] Dianna Alcocer Calcium [Mass/Vol] 8.9 mg/dL Normal 8.5-10.1 [facility] Comment on above: Performed By: #### H STROPN, CMP #### [facility] [address] [address] [address] Dianna Alcocer Chloride [Moles/Vol] 101 mmol/L Normal 98-107 [facility] Comment on above: Performed By: #### H STROPN, CMP #### [facility] [address] [address] [address] Dianna Alcocer CO2 [Moles/Vol] 27.4 mmol/L Normal 21.0-32.0 [facility] Comment on above: Performed By: #### H STROPN, CMP #### [facility] [address] [address] [address] Dianna Alcocer Creatinine [Mass/Vol] 1.03 mg/dL Critically high 0.55-1.02 [facility] Comment on above: Performed By: #### H STROPN, CMP #### [facility] [address] [address] [address] Dianna Alcocer EGFR-AF SIERRA LEONEAN >60 Normal >=60 [facility] Comment on above: Performed By: #### H STROPN, CMP #### [facility] [address] [address] [address] Dianna Alcocer EGFR-NON AF SIERRA LEONEAN 51 mL/min/1.73m2 Critically low >=60 [facility] Comment on above: Performed By: #### H STROPN, CMP #### [facility] [address] [address] [address] Dianna Alcocer Globulin (S) [Mass/Vol] 3.1 g/dL Normal [facility] Comment on above: Performed By: #### H STROPN, CMP #### [facility] [address] [address] [address] Dianna Alcocer Glucose [Mass/Vol] 99 mg/dL Normal 74-106 [facility] Comment on above: Performed By: #### H STROPN, CMP #### [facility] [address] [address] [address] Dianna Alcocer Potassium [Moles/Vol] 4.0 mmol/L Normal 3.5-5.1 [facility] Comment on above: Performed By: #### H STROPN, CMP #### [facility] [address] [address] [address] Dianna Alcocer Protein [Mass/Vol] 7.3 g/dL Normal 6.4-8.2 [facility] Comment on above: Performed By: #### H STROPN, CMP #### [facility] [address] [address] [address] Dianna Alcocer Sodium [Moles/Vol] 135 mmol/L Critically low 136-145 [facility] Comment on above: Performed By: #### H STROPN, CMP #### [facility] [address] [place] [address] Dr. Dianna Alcocer Urea nitrogen [Mass/Vol] 8.0 mg/dL Normal 7.0-18.0 [facility] Comment on above: Performed By: #### H STROPN, CMP #### [facility] [address] [place] [address] Dr. Dianna Alcocer Urea nitrogen/Creatinine [Mass ratio] 7.8 mg/mg Normal [facility] Comment on above: Performed By: #### H STROPN, CMP #### [facility] [address] [place] [address] Dr. Dianna Alcocer TROPONIN, HIGH SENSITIVITYon 08-23-2022 HSTROP 8.5 pg/mL Normal 4.0-51.3 [facility] Comment on above: Result Comment: CUT- OFF POINTS HAVE BEEN ESTABLISHED BASED ON THE FOURTH UNIVERSAL DEFINITIONS OF MYOCARDIAL INFARCTION. THE UPPER REFERENCE LIMIT (URL) OF TROPONIN, DEFINED THE 99TH PERCENTILE OF cTnI DISTRIBUTION IN A REFERENCE POPULATION, HAS BEEN CONFIRMED THE DECISION THRESHOLD FOR [place] DIAGNOSIS. Performed By: #### H STROPN, CMP #### [facility] [address] [place] [address] Dr. Dianna Alcocer URINE MICROSCOPIC ONLYon BACTERIA SMALL Abnormal NONE SEEN [facility] Comment on above: Performed By: #### C MADM, BNP, CMP #### [facility] [address] [place] [address] Dr. Dianna Alcocer Bacteria identified Cx Nom (U) INDICATED Normal [facility] Comment on above: Performed By: #### C MADM, BNP, CMP #### [facility] [address] [place] [address] Dr. Dianna Alcocer CAST NONE SEEN Normal NONE SEEN [facility] Comment on above: Performed By: #### C MADM, BNP, CMP #### [facility] [address] [address] [address] Dianna Alcocer Crystals LM Nom (Urine sed) NONE SEEN Normal NONE SEEN [facility] Comment on above: Performed By: #### C MADM, BNP, CMP #### [facility] [address] [address] [address] Dianna Alcocer Epithelial cells LM Ql (Urine sed) FEW Abnormal NONE SEEN /RARE [facility] Comment on above: Performed By: #### C MADM, BNP, CMP #### [facility] [address] [address] [address] Dianna Alcocer MUCOUS NONE SEEN Normal NONE SEEN [facility] Comment on above: Performed By: #### C MADM, BNP, CMP #### [facility] [address] [place] [address] Dr. Dianna Alcocer RBC 0-2 Normal 0-2 [facility] Comment on above: Performed By: #### C MADM, BNP, CMP #### [facility] [address] [place] [address] Dr. Dianna Alcocer WBC 2-5 Abnormal NONE SEEN [facility] Comment on above: Performed By: #### C MADM, BNP, CMP #### [facility] [address] [place] [address] Dr. Dianna Alcocer XR CHEST 1 Von [...] by: SOTERO GOMEZ Date: 2022-08-23 10:29 Normal [facility] CULTURE URINEon 07-30-2022 CULTURE URINE [...] F Trimethoprim/Sulfameth oxazole <=20 S F Normal [facility] Comment on above: Performed By: #### C MADM, BNP, CMP #### [facility] [address] [place] [address] ABD/PELV W CONon [...] LUZ GRIDER Date: 2022-05-08 10:36 Normal [facility] PROF CHEM 8 (BAS METB)on Anion gap [Moles/Vol] 8.4 mmol/L Normal [facility] Comment on above: Performed By: #### C MADM, BNP, CMP #### [facility] [address] [address] [address] Dianna Alcocer Calcium [Mass/Vol] 8.9 mg/dL Normal 8.5-10.1 [facility] Comment on above: Performed By: #### C MADM, BNP, CMP #### [facility] [address] [address] [address] Dianna Alcocer Chloride [Moles/Vol] 103 mmol/L Normal 98-107 [facility] Comment on above: Performed By: #### C MADM, BNP, CMP #### [facility] [facility] [address] [address] [address] Dianna Alcocer CO2 [Moles/Vol] 28.7 mmol/L Normal 21.0-32.0 [facility] Comment on above: Performed By: #### C MADM, BNP, CMP #### [facility] [address] [address] [address] Dianna Alcocer Creatinine [Mass/Vol] 0.95 mg/dL Normal 0.55-1.02 [facility] Comment on above: Performed By: #### C MADM, BNP, CMP #### [facility] [address] [address] [address] Dianna Alcocer EGFR-AF SIERRA LEONEAN >60 Normal >=60 [facility] Comment on above: Performed By: #### C MADM, BNP, CMP #### [facility] [address] [address] [address] Dianna Alcocer EGFR-NON AF SIERRA LEONEAN 56 mL/min/1.73m2 Critically low >=60 [facility] Comment on above: Performed By: #### C MADM, BNP, CMP #### [facility] [address] [address] [address] Dianna Alcocer Glucose [Mass/Vol] 91 mg/dL Normal 74-106 [facility] Comment on above: Performed By: #### C MADM, BNP, CMP #### [facility] [address] [address] [address] Dianna Alcocer Potassium [Moles/Vol] 5.1 mmol/L Normal 3.5-5.1 [facility] Comment on above: Performed By: #### C MADM, BNP, CMP #### [facility] [address] [address] [address] Dianna Alcocer Sodium [Moles/Vol] 135 mmol/L Critically low 136-145 [facility] Comment on above: Performed By: #### C MADM, BNP, CMP #### [facility] [address] [address] [address] Dianna Alcocer Urea nitrogen [Mass/Vol] 13.0 mg/dL Normal 7.0-18.0 [facility] Comment on above: Performed By: #### C MADM, BNP, CMP #### [facility] [address] [address] [address] Dianna Alcocer Urea nitrogen/Creatinine [Mass ratio] 13.7 mg/mg Normal [facility] Comment on above: Performed By: #### C MADM, BNP, CMP #### [facility] [address] [place] [address] Dr. Dianna Alcocer MG MAMM DIAGNOSTIC 3D KIRT CA Don 02-09-2022 MG MAMM DIAGNOSTIC 3D KIRT CAD Patient: JOSEFA CASTILLO Exam Date: 02/09/2022 : 1940 Gender:F Ordering : DR TITO HILLMAN . Admission #: [id number] Family : Order #: [id number] CLICK HERE TO VIEW EXAM RADIOLOGY REPORT [...] prostate cancer at age 70. LOCATION: [facility] BREAST COMPOSITION: Almost entirely fatty. [...] M.D. on 02/09/2022 at 08:27 Normal [facility] Vital Signs Date Time Vital Sign Value Performing Clinician Windy khan 10-11-2024 11:30-0500 Body height 157.5 cm Tito Hillman MD Work Phone: [facility] 10-11-2024 11:30-0500 Body mass index (BMI) [Ratio] 19.39 kg/m2 Tito Hillman MD Work Phone: [facility] 10-11-2024 11:30-0500 Body temperature 96.4 [degF] Tito Hillman MD Work Phone: [facility] 10-11-2024 11:30-0500 Body weight 48.08 kg Tito Hillman MD Work Phone: [facility] 10-11-2024 11:30-0500 Diastolic blood pressure 78 mm[Hg] Tito Hillman MD Work Phone: [facility] 10-11-2024 11:30-0500 Heart rate 58 /min Tito Hillman MD Work Phone: [facility] 10-11-2024 11:30-0500 Respiratory rate 20 /min Tito Hillman MD Work Phone: [facility] 10-11-2024 11:30-0500 SaO2% (BldA) [Mass fraction] 97 % Tito Hillman MD Work Phone: [facility] 10-11-2024 11:30-0500 Systolic blood pressure 130 mm[Hg] Tito Hillman MD Work Phone: [facility] 08-03-2024 10:33-0400 Body height 157.5 cm Tito Hillman MD Work Phone: [facility] 08-03-2024 10:33-0400 Body mass index (BMI) [Ratio] 20.12 kg/m2 Tito Hillman MD Work Phone: [facility] 08-03-2024 10:33-0400 Body temperature 96.6 [degF] Tito Hillman MD Work Phone: [facility] 08-03-2024 10:33-0400 Body weight 49.9 kg Tito Hillman MD Work Phone: [facility] 08-03-2024 10:33-0400 Diastolic blood pressure 60 mm[Hg] Tito Hillman MD Work Phone: [facility] 08-03-2024 10:33-0400 Heart rate 53 /min Tito Hillman MD Work Phone: [facility] 08-03-2024 10:33-0400 Respiratory rate 18 /min Tito Hillman MD Work Phone: [facility] 08-03-2024 10:33-0400 SaO2% (BldA) [Mass fraction] 98 % Tito Hillman MD Work Phone: [facility] 08-03-2024 10:33-0400 Systolic blood pressure 136 mm[Hg] Tito Hillman MD Work Phone: [facility] 07-06-2024 15:46-0400 Body height 157.5 cm Tito Hillman MD Work Phone: [facility] 07-06-2024 15:46-0400 Body mass index (BMI) [Ratio] 20.67 kg/m2 Tito Hillman MD Work Phone: [facility] 07-06-2024 15:46-0400 Body temperature 97.11 [degF] Tito Hillman MD Work Phone: [facility] 07-06-2024 15:46-0400 Body weight 51.26 kg Tito Hillman MD Work Phone: [facility] 07-06-2024 15:46-0400 Diastolic blood pressure 50 mm[Hg] Tito Hillman MD Work Phone: [facility] 07-06-2024 15:46-0400 Heart rate 70 /min Tito Hillman MD Work Phone: [facility] 07-06-2024 15:46-0400 Respiratory rate 20 /min Tito Hillman MD Work Phone: [facility] 07-06-2024 15:46-0400 SaO2% (BldA) [Mass fraction] 98 % Tito Hillman MD Work Phone: [facility] 07-06-2024 15:46-0400 Systolic blood pressure 106 mm[Hg] Tito Hillman MD Work Phone: [facility] 12-01-2023 13:06-0500 Body height 157.5 cm Jr. Stepanic DO Work Phone: [facility] 12-01-2023 13:06-0500 Body mass index (BMI) [Ratio] 19.94 kg/m2 Jr. Stepanic DO Work Phone: [facility] 12-01-2023 13:06-0500 Body weight 49.44 kg Jr. Stepanic DO Work Phone: [facility] 07-29-2023 10:04-0400 Body temperature 97.3 [degF] Rod Roman MD Work Phone: [facility] 07-29-2023 10:04-0400 Body weight 56.97 kg Rod Roman MD Work Phone: [facility] 07-29-2023 10:04-0400 Diastolic blood pressure 71 mm[Hg] Rod Roman MD Work Phone: [facility] 07-29-2023 10:04-0400 Heart rate 63 /min Rod Roman MD Work Phone: [facility] 07-29-2023 10:04-0400 Respiratory rate 16 /min Rod Roman MD Work Phone: [facility] 07-29-2023 10:04-0400 SaO2% (BldA) [Mass fraction] 97 % Rod Roman MD Work Phone: [facility] 07-29-2023 10:04-0400 Systolic blood pressure 175 mm[Hg] Rod Roman MD Work Phone: [facility] 04-08-2023 10:14-0400 Body height 157.5 cm Rod Roman MD Work Phone: [facility] 04-08-2023 10:14-0400 Body temperature 97.81 [degF] Rod Roman MD Work Phone: [facility] 04-08-2023 10:14-0400 Body weight 56.7 kg Rod Roman MD Work Phone: [facility] 04-08-2023 10:14-0400 Diastolic blood pressure 74 mm[Hg] Rod Roman MD Work Phone: [facility] 04-08-2023 10:14-0400 Heart rate 77 /min Rod Roman MD Work Phone: [facility] 04-08-2023 10:14-0400 Respiratory rate 16 /min Rod Roman MD Work Phone: [facility] 04-08-2023 10:14-0400 SaO2% (BldA) [Mass fraction] 99 % Rod Roman MD Work Phone: [facility] 04-08-2023 10:14-0400 Systolic blood pressure 161 mm[Hg] Rod Roman MD Work Phone: [facility] 12-17-2022 10:29-0500 Body height 157.5 cm Rod Roman MD Work Phone: [facility] 12-17-2022 10:29-0500 Body temperature 97.5 [degF] Rod Roman MD Work Phone: [facility] 12-17-2022 10:29-0500 Body weight 55.97 kg Rod Roman MD Work Phone: [facility] 12-17-2022 10:29-0500 Diastolic blood pressure 81 mm[Hg] Rod Roman MD Work Phone: [facility] 12-17-2022 10:29-0500 Heart rate 66 /min Rod Roman MD Work Phone: [facility] 12-17-2022 10:29-0500 Respiratory rate 16 /min Rod Roman MD Work Phone: [facility] 12-17-2022 10:29-0500 SaO2% (BldA) [Mass fraction] 97 % Rod Roman MD Work Phone: [facility] 12-17-2022 10:29-0500 Systolic blood pressure 159 mm[Hg] Rod Roman MD Work Phone: [facility] 07-30-2022 09:55-0400 Body height 157.5 cm Rod Roman MD Work Phone: [facility] 07-30-2022 09:55-0400 Body temperature 97.59 [degF] Rod Roman MD Work Phone: [facility] 07-30-2022 09:55-0400 Body weight 58.06 kg Rod Roman MD Work Phone: [facility] 07-30-2022 09:55-0400 Diastolic blood pressure 71 mm[Hg] Rod Roman MD Work Phone: [facility] 07-30-2022 09:55-0400 Heart rate 70 /min Rod Roman MD Work Phone: [facility] 07-30-2022 09:55-0400 Respiratory rate 16 /min Rod Roman MD Work Phone: [facility] 07-30-2022 09:55-0400 SaO2% (BldA) [Mass fraction] 98 % Rod Roman MD Work Phone: [facility] 07-30-2022 09:55-0400 Systolic blood pressure 153 mm[Hg] Rod Roman MD Work Phone: [facility] 04-30-2022 11:26-0400 Body temperature 97.11 [degF] Ma Sand Work Phone: [facility] 04-30-2022 11:26-0400 Diastolic blood pressure 56 mm[Hg] Ma Sand Work Phone: [facility] 04-30-2022 11:26-0400 Heart rate 68 /min Ma Sand Work Phone: [facility] 04-30-2022 11:26-0400 Respiratory rate 16 /min Ma Sand Work Phone: [facility] 04-30-2022 11:26-0400 SaO2% (BldA) [Mass fraction] 98 % Ma Sand Work Phone: [facility] 04-30-2022 11:26-0400 Systolic blood pressure 113 mm[Hg] Ma Sand Work Phone: [facility] 04-02-2022 11:24-0400 Body height 158.1 cm Ma Sand Work Phone: [facility] 04-02-2022 11:24-0400 Body temperature 97.9 [degF] Ma Sand Work Phone: [facility] 04-02-2022 11:24-0400 Body weight 58.51 kg Ma Sand Work Phone: [facility] 04-02-2022 11:24-0400 Diastolic blood pressure 52 mm[Hg] Ma Sand Work Phone: [facility] 04-02-2022 11:24-0400 Heart rate 66 /min Ma Sand Work Phone: [facility] 04-02-2022 11:24-0400 Respiratory rate 16 /min Ma Sand Work Phone: [facility] 04-02-2022 11:24-0400 SaO2% (BldA) [Mass fraction] 97 % Ma Sand Work Phone: [facility] 04-02-2022 11:24-0400 Systolic blood pressure 119 mm[Hg] Ma Sand Work Phone: [facility] 03-05-2022 10:58-0400 Body height 158.1 cm Rod Roman MD Work Phone: [facility] 03-05-2022 10:58-0400 Body temperature 97.81 [degF] Rod Roman MD Work Phone: [facility] 03-05-2022 10:58-0400 Body weight 58.79 kg Rod Roman MD Work Phone: [facility] 03-05-2022 10:58-0400 Diastolic blood pressure 87 mm[Hg] Rod Roman MD Work Phone: [facility] 03-05-2022 10:58-0400 Heart rate 64 /min Rod Roman MD Work Phone: [facility] 03-05-2022 10:58-0400 Respiratory rate 16 /min Rod Roman MD Work Phone: [facility] 03-05-2022 10:58-0400 SaO2% (BldA) [Mass fraction] 98 % Rod Roman MD Work Phone: [facility] 03-05-2022 10:58-0400 Systolic blood pressure 178 mm[Hg] Rod Roman MD Work Phone: [facility] Encounters Encounter Date Encounter Type Care Provider Facility Start: 12-15-2024 End: 12-15-2024 Refill Tito Hillman MD Work Phone: [facility] Comment on above: Migraine without aur a, not intractable, without status migrainosus (CMS/HCC) Start: 12-04-2024 End: 12-04-2024 Refill Tito Hillman MD Work Phone: [facility] Comment on above: Lumbar spondylosis; DDD (degenerative disc disease), lumbar Start: 11-14-2024 End: 11-14-2024 Clinisync Result Encounter Generic External Data Provider [facility] External Department Unsolicited Start: 11-14-2024 End: 11-14-2024 Clinisync Result Encounter Generic External Data Provider [facility] External Department Unsolicited Start: 10-30-2024 End: 10-30-2024 Refill Tito Hillman MD Work Phone: [facility] Comment on above: DDD (degenerative di sc disease), lumbar Start: 10-19-2024 End: 10-19-2024 Refill Susan Waller [facility] Comment on above: Migraine without aur a, not intractable, without status migrainosus (CMS/HCC) Start: 10-11-2024 End: 10-11-2024 Bamboo flowsheet Tito [...] di sc disease), lumbar Start: 06-30-2024 ambulatory [facility] Start: 06-28-2024 End: 06-30-2024 Emergency department patient visit [facility] Start: 06-28-2024 ambulatory [facility] Start: 04-10-2024 Telephone encounter Rod bird MD Work Phone: Hematology/Oncology Comment on above: Records faxed Start: 04-04-2024 Telephone encounter Rod bird MD Work Phone: Hematology/Oncology Comment on above: Lab Orders Start: 02-21-2024 End: 02-21-2024 ambulatory [facility] Start: 01-24-2024 End: 01-24-2024 ambulatory TITO HILLMAN Not Available Start: 01-05-2024 End: 01-05-2024 ambulatory [facility] Start: 12-15-2023 End: 12-22-2023 [facility] Start: 12-01-2023 End: 12-01-2023 Office outpatient visit 25 minutes Jr. Kaylan Stewart DO Work Phone: [facility] Comment on above: Left hip pain [...] Start: 07-29-2023 End: 07-29-2023 ambulatory TITO HILLMAN Facility:[facility] Start: 04-08-2023 End: 04-08-2023 Nursing evaluation [...] Start: 04-08-2023 End: 04-08-2023 ambulatory TITO HILLMAN Facility:[facility] Start: 02-19-2023 ambulatory [facility] Start: 02-19-2023 Encounter for preprocedural cardiovascular examination [...] encounter procedure Rod Roman MD Work Phone: [facility] Start: 07-28-2022 End: 07-28-[address] TITO [...] (Primary Dx) Start: 03-17-2022 End: 03-17-2022 ambulatory KAMARAELLEN MATTSONHeydi Facility:[facility] Start: 03-05-2022 End: 03-05-2022 Nursing evaluation [...] End: 11-12-2018 Patient encounter procedure DESTINEE SMART Facility:[facility] Procedures Date Procedure Procedure Detail Performing Clinician Start: 11-14-2024 ALL C REACTIVE PROTEIN Generic External Data Provider Start: 11-14-2024 ALL LDH Generic Ex ternal Data Provider Start: 11-14-2024 [facility] CMP (CMP) (FOR [facility] USE) Generic External Data Provider Start: 08-29-2024 ALL CBC WITH AUTO DIFF Generic External Data Provider Start: 08-29-2024 RETICULOCYTE PCT AUTO G eneric External Data Provider Start: 07-14-2024 ALL LDH Generic Ex ternal Data Provider Start: 07-14-2024 [facility] CMP (CMP) (FOR R [facility] USE) Generic External Data Provider Plan of Treatment Date Care Activity Detail Author Start: 07-29-2026 Diabetes Screening Diabetes Screenin g [facility] Start: 04-08-2026 DIABETES SCREEN DIABETES SCREEN [facility] Start: 12-17-2025 DIABETES SCREEN [facility]CREEN [facility] Start: 10-11-2025 Medicare Annual Wellness (AWV) Medicare Annual Wellness (AWV) [facility] Start: 07-30-2025 [facility] Start: 04-30-2025 [facility]ABET[facility] SCREEN [facility] Start: 04-11-2025 End: 04-11-2025 Patient encounter procedure 04/11/2025 10:15 AM EDT Office Visit [facility] [address] [place] [address] Tito Hillman MD [address] [place] [address] [facility] Start: 04-02-2025 DIABETES SCREEN DIABETES SCREEN [facility] Start: 03-05-2025 DIABETES SCREEN [facility] Start: 10-11-2024 End: 10-11-2024 Patient encounter procedure [facility] Comment on above: Arrived Start: 10-09-2024 End: 10-09-2024 Patient encounter procedure 10/09/2024 1:30 PM EST Office Visit [facility] [address] [place] [address] Tito Hillman MD [address] [place] [id number] [facility] Start: 08-03-2024 End: 08-03-2024 [facility] above: Arrived Start: 07-06-2024 End: 07-06-2024 Patient encounter procedure [facility] Comment on above: Arrived Start: 07-02-2024 Influenza vaccination [facility] Start: 04-17-2024 End: 04-04-2025 CBC W Auto Differential panel - Blood COMPLETE BLOOD COUNT AND DIFFERENTIAL Lab Routine 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 Expected: 04/17/2024 (Approximate), Expires: 04/04/2025 [facility] Comment on above: Expected: 04/17/2024 (Approximate), Expires: 04/04/2025 Start: 04-17-2024 End: 04-04-2025 Comprehensive metabolic 2000 panel - Serum or Plasma COMPREHENSIVE METABOLIC PANEL Lab Routine 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 Expected: 04/17/2024 (Approximate), Expires: 04/04/2025 [facility] Comment on above: Expected: 04/17/2024 (Approximate), Expires: 04/04/2025 Start: 04-17-2024 End: 04-04-2025 Lactate dehydrogenase [Enzymatic activity/volume] in Serum or Plasma LACTATE DEHYDROGENASE Lab Routine 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 Expected: 04/17/2024 (Approximate), Expires: 04/04/2025 [facility] Work Phone: Comment on above: Expected: 04/17/2024 (Approximate), Expires: 04/04/2025 Start: 04-17-2024 End: 04-17-2024 Follow-up encounter 04/17/2024 11:15 AM EDT Visit (SP) Office Hematology/Oncology [address] [place] [address] Rod Roman MD [address] [place] [address] follow up Hematology/Oncology Comment on above: follow up Start: 04-17-2024 End: 04-17-2024 Patient encounter procedure 04/17/2024 11:00 AM EDT Office Visit [facility] [address] [place] [address] lab [facility] Comment on above: lab Start: 01-24-2024 End: 01-24-2024 Patient encounter procedure 01/24/2024 10:15 AM EDT Office Visit [facility] [address] [place] [phone] Tito Hillman MD [address] [place] [address] [facility] Start: 11-18-2023 End: 07-29-2024 CBC W Auto Differential panel - Blood CBC + DIFF Lab Routine 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 (HCC) Expected: 11/18/2023 (Approximate), Expires: 07/29/2024 [facility] Work Phone: Comment on above: Expected: 11/18/2023 (Approximate), Expires: 07/29/2024 Start: 11-18-2023 End: 07-29-2024 Cobalamin (Vitamin B12) [Mass/volume] in Serum or Plasma VITAMIN B12 BLOOD Lab Routine 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 (HCC) Expected: 11/18/2023 (Approximate), Expires: 07/29/2024 [facility] Work Phone: Comment on above: Expected: 11/18/2023 (Approximate), Expires: 07/29/2024 Start: 11-18-2023 End: 07-29-2024 Comprehensive metabolic 2000 panel - Serum or Plasma COMP METABOLIC PANEL Lab Routine 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 (HCC) Expected: 11/18/2023 (Approximate), Expires: 07/29/2024 [facility] Work Phone: Comment on above: Expected: 11/18/2023 (Approximate), Expires: 07/29/2024 Start: 11-18-2023 End: 07-29-2024 Ferritin [Mass/volume] in Serum or Plasma FERRITIN BLD Lab Routine 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 (HCC) Expected: 11/18/2023 (Approximate), Expires: 07/29/2024 [facility] Work Phone: Comment on above: Expected: 11/18/2023 (Approximate), Expires: 07/29/2024 Start: 11-18-2023 End: 07-29-2024 Folate [Mass/volume] in Serum or Plasma FOLATE SERUM Lab Routine 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 (HCC) Expected: 11/18/2023 (Approximate), Expires: 07/29/2024 [facility] Work Phone: Comment on above: Expected: 11/18/2023 (Approximate), Expires: 07/29/2024 Start: 11-18-2023 End: 07-29-2024 Iron and Iron binding capacity panel - Serum or Plasma IRON + TIBC Lab Routine 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 (HCC) Expected: 11/18/2023 (Approximate), Expires: 07/29/2024 [facility] Work Phone: Comment on above: Expected: 11/18/2023 (Approximate), Expires: 07/29/2024 Start: 11-01-2023 Advance Directive Discussion Advance Directive Discussion [facility] Start: 11-01-2023 Behavioral Health Screening Behavioral Health Screening [facility] Start: 09-23-2023 End: 07-29-2024 CBC W Auto Differential panel - Blood CBC + DIFF Lab Routine 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 (HCC) Expected: 09/23/2023 (Approximate), Expires: 07/29/2024 [facility] Work Phone: Comment on above: Expected: 09/23/2023 (Approximate), Expires: 07/29/2024 Start: 09-23-2023 End: 07-29-2024 Cobalamin (Vitamin B12) [Mass/volume] in Serum or Plasma VITAMIN B12 BLOOD Lab Routine 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 (HCC) Expected: 09/23/2023 (Approximate), Expires: 07/29/2024 [facility] Work Phone: Comment on above: Expected: 09/23/2023 (Approximate), Expires: 07/29/2024 Start: 09-23-2023 End: 07-29-2024 Comprehensive metabolic 2000 panel - Serum or Plasma COMP METABOLIC PANEL Lab Routine 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 (HCC) Expected: 09/23/2023 (Approximate), Expires: 07/29/2024 [facility] Work Phone: Comment on above: Expected: 09/23/2023 (Approximate), Expires: 07/29/2024 Start: 09-23-2023 End: 07-29-2024 Ferritin [Mass/volume] in Serum or Plasma FERRITIN BLD Lab Routine 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 (HCC) Expected: 09/23/2023 (Approximate), Expires: 07/29/2024 [facility] Work Phone: Comment on above: Expected: 09/23/2023 (Approximate), Expires: 07/29/2024 Start: 09-23-2023 End: 07-29-2024 Folate [Mass/volume] in Serum or Plasma FOLATE SERUM Lab Routine 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 (HCC) Expected: 09/23/2023 (Approximate), Expires: 07/29/2024 [facility] Work Phone: Comment on above: Expected: 09/23/2023 (Approximate), Expires: 07/29/2024 Start: 09-23-2023 End: 07-29-2024 Iron and Iron binding capacity panel - Serum or Plasma IRON + TIBC Lab Routine 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 (HCC) Expected: 09/23/2023 (Approximate), Expires: 07/29/2024 [facility] Work Phone: Comment on above: Expected: 09/23/2023 (Approximate), Expires: 07/29/2024 Start: 07-02-2023 Covid-19 Vaccine ( season) Covid-19 Vaccine ( season) [facility] Start: 07-02-2023 Influenza vaccination Influenza Vacc ine (#1) [facility] Start: 12-19-2022 Covid-19 Vaccine (6 - Pfizer series) Covid-19 Vaccine (6 - Pfizer series) [facility] Start: 11-01-2022 ADVANCE DIRECTIVE DISCUSSION ADVANCE DIRECTIVE DISCUSSION [facility] Start: 11-01-2022 DEPRESSION ASSESSMENT DEPRESSION ASS ESSMENT [facility] Start: 07-18-2022 COVID-19 VACCINE (5 - Booster for Pfizer series) COVID-19 VACCINE (5 - Booster for Pfizer series) [facility] Start: 07-02-2022 Influenza vaccination INFLUENZA (#1) [facility] Start: 05-28-2022 End: 07-28-2022 VITAMIN B12 BLOOD VITAMIN B12 BLOOD Lab Routine 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 Osteopenia of multiple sites Expected: 05/28/2022 (Approximate), Expires: 07/28/2022 [facility] Work Phone: Comment on above: Expected: 05/28/2022 (Approximate), Expires: 07/28/2022 Start: 12-28-2021 COVID-19 VACCINE (4 - Booster for Pfizer series) COVID-19 VACCINE (4 - Booster for Pfizer series) [facility] Start: 11-01-2021 ADVANCE DIRECTIVE DISCUSSION ADVANCE DIRECTIVE DISCUSSION [facility] Start: 11-01-2021 DEPRESSION ASSESSMENT DEPRESSION ASS ESSMENT [facility] Start: 2005 BONE DENSITY BONE DENSITY [facility] Start: 2005 Bone Density Screening Bone Density Screening [facility] Start: 2005 Screening for osteoporosis Bone Density Screening [facility] Start: 2000 RSV Vaccine (1 - 1-d ose 60+ series) RSV Vaccine (1 - 1-dose 60+ series) [facility] Start: 1990 SHINGRIX VACCINE (1 of 2) SHINGRIX VACCINE (1 of 2) [facility] Start: 1959 Urine microalbumin profile [facility] Start: 1940 Medicare Annual Wellness (AWV) Medicare Annual Wellness (AWV) [facility] XR Hip - left 3 Views XR hip lef t 2 or 3 views Imaging Routine Left hip pain 12/01/2023 1:10 PM EST [facility] Work Phone: [facility] Immunizations Immunization Date Immunization Notes Care Provider Yolanda chatman 08-18-2022 influenza, high-dose , quadrivalent vaccine (FLUZONE HIGH DOSE QUADRIVALENT) Rod Roman MD Work Phone: [facility] 08-18-2022 influenza virus vacc ine, unspecified formulation Rod Roman MD Work Phone: [facility] 08-06-2021 influenza, high-dose , quadrivalent vaccine (FLUZONE HIGH DOSE QUADRIVALENT) Rod Roman MD Work Phone: [facility] 12-31-2020 COVID-19 vaccine, ag e 12+ yr (PFIZER-BIONTECH - PURPLE TOP) Rod Roman MD Work Phone: [facility] 11-30-2020 COVID-19 vaccine, ag e 12+ yr (PFIZER-BIONTECH - PURPLE TOP) Rod Roman MD Work Phone: [facility] 08-19-2020 influenza, high-dose , quadrivalent vaccine (FLUZONE HIGH DOSE QUADRIVALENT) Rod Roman MD Work Phone: [facility] 09-09-2019 influenza, high dose seasonal, preservative-free Rod Roman MD Work Phone: [facility] 07-12-2018 influenza, high dose seasonal, preservative-free Rod Roman MD Work Phone: [facility] 09-25-2017 influenza, high dose seasonal, preservative-free Rod Roman MD Work Phone: [facility] 08-12-2016 influenza, injectabl e, quadrivalent, preservative free Rod Roman MD Work Phone: [facility] 08-12-2016 pneumococcal polysaccharide vaccine, 23 valent Rod Roman MD Work Phone: [facility] 07-11-2016 influenza, high dose seasonal, preservative-free Rod Roman MD Work Phone: [facility] 06-15-2015 influenza, high dose seasonal, preservative-free Rod Roman MD Work Phone: [facility] 06-15-2015 pneumococcal conjuga te vaccine, 13 valent Rod Roman MD Work Phone: [facility] 08-08-2014 influenza virus vacc ine, whole virus Rod Roman MD Work Phone: [facility] 07-12-2010 pneumococcal conjuga te vaccine, 7 valent Rod Roman MD Work Phone: [facility] Payers Date Payer Category Payer Other GENERIC OTHER [id number] 2005 Medicare MEDICARE MEDICAR E A AND B [id number] 2005-Present [phone] [address] [address] [place] [address] Medicare [id number] 2005 Medicare [id number] 2005 Unknown HOSPITAL/MEDICAL GENERIC MEDICAL GENERIC [id number] 2005-Present [phone] [address] [address] [place] [address] Indemnity [id number] 2005 Unknown [id number] [id number] 1959 Medicare [id number] 1959 Unknown [id number] 1940 Unknown [id number] 2.16.840.1.446154.3.579.2.647 1940 Unknown [id number] 2.16.840.1.636350.3.579.2.593 1940 Unknown [id number] 2.16.840.1.931513.3.579.2.593 1940 Unknown [id number] 2.16.840.1.129419.3.579.2.593 1940 Unknown [id number] 2.16.840.1.173008.3.579.2.593 1940 Unknown [id number] 2.16.840.1.624022.3.579.2.593 1940 Unknown [id number] 2.16.840.1.044705.3.579.2.593 1940 Unknown [id number] 2.16.840.1.437488.3.579.2.593 1940 Unknown [id number] 2.16.840.1.857170.3.579.2.175 1940 Unknown [id number] 2.16.840.1.528740.3.579.2.175 1940 Unknown [id number] 2.16.840.1.640363.3.579.2.175 1940 Unknown [id number] 2.16.840.1.129624.3.579.2.128 6 1940 Unknown [id number] 2.16.840.1.206191.3.579.2.128 6 1940 Unknown [id number] 2.16.840.1.519498.3.579.2.128 6 1940 Unknown [id number] 2.16.840.1.848366.3.579.2.128 6 1940 Unknown [id number] 2.16.840.1.051950.3.579.2.125 9 1940 Unknown [id number] 2.16.840.1.914858.3.579.2.125 9 1940 Unknown [id number] 2.16.840.1.854347.3.579.2.125 9 1940 Unknown [id number] 2.16.840.1.457007.3.579.2.125 9 1940 Unknown [id number] 2.16.840.1.105888.3.579.2.125 9 1940 Unknown [id number] 2.16.840.1.128376.3.579.2.125 9 1940 Unknown [id number] 2.16.840.1.957684.3.579.2.125 9 1940 Unknown [id number] 2.16.840.1.216238.3.579.2.125 9 Medicare [id number] Social History Date Type Detail Facility Start: 11-11-2020 End: 10-15-2023 Tobacco smoking status NHIS Ex-smoker [facility] Start: 12-30-2009 End: 08-01-2020 History of tobacco use Current smoker [facility] Start: 11-11-2020 End: 10-11-2024 Cigarettes smoked current (pack per day) - Reported 1 [facility] Start: 11-11-2020 Tobacco use and exposure Smoke less tobacco non-user [facility] Start: 03-05-2022 End: 04-08-2023 Alcohol intake Current drinker of alcohol (finding) [facility] Start: 1940 Sex Assigned At Not on file [facility] Start: 02-23-2022 End: 07-30-2022 Exposure to SARS-CoV-2 (event) Not sure [facility] Start: 12-30-2009 End: 08-01-2020 History of tobacco use Cigarette Smoker [facility] Start: 04-08-2023 End: 10-11-2024 Tobacco use panel [facility] Adult Depression Scr eening Assessment 0 [facility] Clinical Notes 01-30-2022 to 10-11-2024 Tito [...] not to smoke. documented in this encounter [facility] 08-03-2024 History of Presen t illness Narrative [...] 50 MG tablet documented in this encounter [facility] 07-06-2024 History of Presen t illness Narrative [...] 83 y.o. female who presents for Follow-up (/[facility] f/up). Hospital follow up from 06/28-06/29 for BANKS, blurry vision, and numbness. Developed severe BANKS. Pain behind eye and severe ABNKS. Throbbing pain in entire head associated with [...] MG tablet topiramate (Topamax) 25 MG tablet chahexsjbm-ivoaapfimojgu-tsaomd ne 50-325-40 MG tablet Overflow incontinence of urine C/o incontinence and try medication. Relevant Medications oxybutynin XL (Ditropan XL) 10 MG 24 hr tablet Vision changes Continued vision changes and follow with new eye doctor. documented in this encounter [facility] 04-10-2024 Telephone encounter Note Records faxed to Dr. Stark at [place]. [facility] 04-10-2024 Miscellaneous Notes Records faxed to Dr. Stark at [place]. documented in this encounter [facility] 04-04-2024 Telephone encounter Note Patient has an appt on 04/17/24. Would you like labs-her labs are , please place orders. Janeth Bright MA [facility] 04-04-2024 Miscellaneous Notes Patient has an appt on 04/17/24. Would you like labs-her labs are , please place orders. Janeth Bright MA documented in this encounter [facility] 12-01-2023 History of Presen t illness Narrative Images from the original note were not included. HISTORY OF PRESENT ILLNESS: EST PT Josefa Castillo is an 83 y.o. @ female. (EST PT; MOST RECENT VISIT WITH ALEXANDREA) S/P (L) HIP FX W/ ORIF 08/26/23 (13WKS 6DAY) @ [facility] - PT C/O PAIN XRAY LT [...] 100 mg, Oral, 2 times daily HYDROcodone-acetaminophen ([place]) 5-325 MG tablet 1 tablet, Oral, 4 [...] recommending a referral to Dr. Christine in [place] with patient's verbal agreeance. We have discussed her HEP and restrictions and will see her back on a prn basis. Lupe Field MA documented in this encounter [facility] 07-29-2023 Instructions Rod Roman MD - 07/29/2023 10:45 AM EDT Labs to include B12 in 8 weeks. Labs every 8 weeks, CBC, CMP Continue current regimen of Hydrea 500 mg daily Wednesday - Wednesday but increase to 2 tablets (1000 mg) on Saturdays and Sundays) B12 Shot today and every 8 weeks. RTC in 16 weeks documented in this encounter [facility] 07-29-2023 History of Presen t illness Narrative Images from the original note were not included. NAME: Josefa Castillo CLINIC NO.: [id number] DATE OF SERVICE: July 29, 2023 (Carlos) [...] found to have thrombocytosis while living in [place]. She has been on various dosing through [...] month 3. Basal cell ca of right mormon April 2023 PLAN: Labs to include B12 in 8 weeks. Labs every 8 weeks, CBC, CMP Continue current regimen of Hydrea 500 mg daily Wednesday - Wednesday but increase to 2 tablets (1000 mg) on Saturdays and Sundays) B12 Shot today and every 8 weeks. RTC in 16 weeks HPI: Updated Visit, July 29, 2023: Right mormon was not a melanoma - basal cell. Labs reviewed and adjusted hydrea on weekends Otherwise is doing very well. Updated Visit, April 08, 2023: Says she's not doing well. Difficulty with vision Need records from right mormon melanoma. Continues B12 shots every 8 weeks [...] the left side of head over the mormon and into the jaw. No vision changes associated with pain. Intermittent and dull and pounding. Right mormon at the corner of her eye lid [...] with 2 new great granchildren born in [facility] and in the New year. Counts [...] She was following with Dr. Bower in [facility]. Initially on 6 pills of hydrea. 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 She has not required other treatments. Also a history of iron deficiency and required iron infusions occasionally. She then moved [facility] [place] [address] 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 Rod Roman MD, CPE [place], [place] CC: Tito Hillman MD [address] [facility] [id number] documented in this encounter [facility] 07-29-2023 Note HNO ID: [id number] Author: Rod Roman MD Service: ? Author Type: Physician Type: Progress Notes Filed: 08/01/2023 3:49 PM Note Text: NAME: Josefa Castillo CLINIC NO.: [id number] DATE OF SERVICE: July 29, 2023 (Carlos) [...] found to have thrombocytosis while living in [place]. She has been on various dosing through [...] month 3. Basal cell ca of right mormon April 2023 PLAN: Labs to include B12 in 8 weeks. Labs every 8 weeks, CBC, CMP Continue current regimen of Hydrea 500 mg daily Wednesday - Wednesday but increase to 2 tablets (1000 mg) on Saturdays and Sundays) B12 Shot today and every 8 weeks. RTC in 16 weeks HPI: Updated Visit, July 29, 2023: Right mormon was not a melanoma - basal cell. Labs reviewed and adjusted hydrea on weekends Otherwise is doing very well. Updated Visit, April 08, 2023: Says she's not doing well. Difficulty with vision Need records from right mormon melanoma. Continues B12 shots every 8 weeks [...] the left side of head over the mormon and into the jaw. No vision changes associated with pain. Intermittent and dull and pounding. Right mormon at the corner of her eye lid [...] with 2 new great granchildren born in [facility] and in the New year. Counts well controlled.Feels good when she gets her B12 and has a surge of energy. Updated Visit, August 19, 2020: Josefa Castillo returns for three-month follow-up. She remains on Hydrea 50 (more content not included)... [facility] 04-08-2023 Nurse Note Patient Identification confirmed: yes. Injection given and documented on DEC per provider order. Janeth Bright MA documented in this encounter [facility] 04-08-2023 Note HNO ID: [id number] Author: Rod Roman MD Service: ? Author Type: Physician Type: Progress Notes Filed: 04/11/2023 2:03 PM Note Text: NAME: Josefa Castillo [facility] NO.: [id number] DATE OF SERVICE: April 08, 2023 (Carlos) [...] found to have thrombocytosis while living in [place]. She has been on various dosing through [...] Difficulty with vision Need records from right mormon melanoma. Continues B12 shots every 8 weeks [...] the left side of head over the mormon and into the jaw. No vision changes associated with pain. Intermittent and dull and pounding. Right mormon at the corner of her eye lid [...] antibiotic last Mo (more content not included)... [facility] 04-08-2023 History of Presen t illness Narrative Images from the original note were not included. NAME: Josefa Castillo CLINIC NO.: [id number] DATE OF SERVICE: April 08, 2023 (Carlos) [...] found to have thrombocytosis while living in [place]. She has been on various dosing through [...] Difficulty with vision Need records from right mormon melanoma. Continues B12 shots every 8 weeks [...] the left side of head over the mormon and into the jaw. No vision changes associated with pain. Intermittent and dull and pounding. Right mormon at the corner of her eye lid [...] She was following with Dr. Bower in [facility]. Initially on 6 pills of hydrea. 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 She has not required other treatments. Also a history of iron deficiency and required iron infusions occasionally. She then moved [facility] in [address] 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 Rod Roman MD, CPE [place], [place] CC: Tito Hillman MD [address] [facility] [id number] documented in this encounter [facility] 02-19-2023 Note Cardiovascular Medic [facility] SUBJECTIVE Chief Complaint Patient presents with Coronary Artery Disease Hypertension Telehealth Phone Visit Josefa Castillo is a 82 y.o. female being evaluated for routine follow-up. HPI PMHx of HTN, CAD s/p stents x3 to LAD and RCA done in [place]. She has a hx of a loop recorder being placed in [place] d/t complaint of syncope. Loop recorder battery , never removed. Dr. Smart gave her the option to go to [place] to have it removed but she refused. [...] Mood normal (more content not included)... [facility] 02-19-2023 Note Telephone apt for 2 [...] other systems reviewed and are negative. [facility] 12-17-2022 History of Presen t illness Narrative Patient Identification confirmed: yes. Injection given and documented on DEC per provider order. Katya Craig documented in this encounter [facility] 12-17-2022 Instructions Rod Roman MD - 12/17/2022 10:48 AM EST Labs every 8 weeks, CBC, CMP Labs to include B12 in 8 weeks. Continue current regimen of Hydrea 500 mg daily B12 Shot today and every 8 weeks. RTC in 16 weeks Defer left sided headache and right mormon lesion to Dr. Hillman. documented in this encounter [facility] 12-17-2022 History of Presen t illness Narrative Images from the original note were not included. NAME: Josefa Castillo CLINIC NO.: [id number] DATE OF SERVICE: December 17, 2022 (aCrlos) Some elements in this clinic note that [...] found to have thrombocytosis while living in [place]. She has been on various dosing through [...] weeks Defer left sided headache and right mormon lesion to Dr. Hillman. HPI: Updated Visit, [...] the left side of head over the mormon and into the jaw. No vision changes associated with pain. Intermittent and dull and pounding. Right mormon at the corner of her eye lid [...] with 2 new great granchildren born in [facility] and in the New year. Counts [...] She was following with Dr. Bower in [facility]. Initially on 6 pills of hydrea. 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 She has not required other treatments. Also a history of iron deficiency and required iron infusions occasionally. She then moved [facility] in [address] 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 Rod Roman MD, CPE [facility] [place], [place] CC: Tito Hillman MD [address] [facility] [id number] documented in this encounter [facility] 11-12-2022 Miscellaneous Notes Please change b-12 date to 11/13/21. Kiera Rey Ma documented in this encounter [facility] 07-30-2022 Nurse Note Patient Identification confirmed: yes. Injection given and documented on DEC per provider order. Lory Avitia documented in this encounter [facility] 07-30-2022 Instructions Rod Roman MD - 07/30/2022 10:30 AM EDT Labs every 4 weeks, CBC, CMP Labs to include B12 in 8 weeks. Continue current regimen of Hydrea 500 mg daily B12 Shot today and every 4 weeks. Defer left sided headache and right mormon lesion to Dr. Hillman. documented in this encounter [facility] 07-30-2022 History of Presen t illness Narrative Images from the original note were not included. NAME: Josefa Castillo CLINIC NO.: [id number] DATE OF SERVICE: July 30, 2022 Some [...] found to have thrombocytosis while living in [place]. She has been on various dosing through [...] weeks. Defer left sided headache and right mormon lesion to Dr. Hillman. HPI: Updated Visit, July 30, 2022: Josefa is 82 years old and returns today with several issues outside of what we typically see her for. She has been complaining of pain on the left side of head over the mormon and into the jaw. No vision changes associated with pain. Intermittent and dull and pounding. Right mormon at the corner of her eye lid [...] She was following with Dr. Bower in [facility]. Initially on 6 pills of hydrea. 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 She has not required other treatments. Also a history of iron deficiency and required iron infusions occasionally. She then moved [facility] in [address] 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 Rod Roman MD, [place], [place] CC: Tito Hillman MD [address] [facility] [id number] documented in this encounter [facility] 04-30-2022 History of Presen t illness Narrative Patient Identification confirmed: yes. Injection given and documented on MAR per provider order. Katya Craig documented in this encounter [facility] 04-02-2022 Nurse Note Patient Identification confirmed: yes. Injection given and documented on MAR per provider order. Kiera Rey Ma documented in this encounter [facility] 03-05-2022 History of Presen t illness Narrative Images from the original note were not included. NAME: Josefa Castillo CLINIC NO.: [id number] DATE OF SERVICE: March 05, 2022 Some [...] found to have thrombocytosis while living in [place]. She has been on various dosing through [...] with 2 new great granchildren born in [facility] and in the [place] year. Counts well controlled.Feels good when she gets her B12 and has a surge of energy. Updated Visit, August 19, 2020: oJsefa Castillo returns for three-month follow-up. She remains [...] She was following with Dr. Bower in [facility]. Initially on 6 pills of hydrea. 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 She has not required other treatments. Also a history of iron deficiency and required iron infusions occasionally. She then moved [facility] [place] [address] 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 Rod Roman MD, CPE [place], [place] CC: Tito Hillman MD [address] [facility] [id number] documented in this encounter [facility] 01-30-2022 Nurse Note Patient Identification confirmed: yes. Injection given and documented on DEC per provider order. Lolly Reagan documented in this encounter [facility] Evaluation note Diagnosis Essential thrombocythemia (HCC)- Primary Essential thrombocythemia Megaloblastic anemia due to vitamin B12 deficiency Other vitamin B12 deficiency anemia Osteopenia of multiple sites [facility] Megaloblastic anemia due to vitamin B12 deficiency- Primary Other vitamin B12 deficiency anemia [facility] Megaloblastic anemia due to vitamin B12 deficiency- Primary Other vitamin B12 deficiency anemia [facility] Diagnosis Megaloblastic anemia due to vitamin B12 deficiency- Primary Other vitamin B12 deficiency anemia [facility] Diagnosis Megaloblastic anemia due to vitamin B12 deficiency- Primary Other vitamin B12 deficiency anemia [facility] Essential thrombocythemia (HCC)- Primary Essential thrombocythemia Iron deficiency anemia, unspecified iron deficiency anemia type [facility] Essential thrombocythemia (HCC)- Primary Essential thrombocythemia Megaloblastic anemia due to vitamin B12 deficiency Other vitamin B12 deficiency anemia Iron deficiency anemia, unspecified iron deficiency anemia type [facility] Essential thrombocythemia (HCC)- Primary Essential thrombocythemia Megaloblastic anemia due to vitamin B12 deficiency Other vitamin B12 deficiency anemia [facility] Diagnosis Megaloblastic anemia due to vitamin B12 deficiency- Primary Other vitamin B12 deficiency anemia Essential thrombocythemia (HCC) Essential thrombocythemia [facility] Left hip pain- Primary Pain in joint, pelvic region and thigh Pain from implanted hardware, initial encounter documented in this encounter [facility]* Diagnosis Essential thrombocythemia (HCC)- Primary Essential thrombocythemia Megaloblastic anemia due to vitamin B12 deficiency Other vitamin B12 deficiency anemia [facility] Diagnosis Migraine without aura, not intractable, without status migrainosus (CMS/HCC) documented in this encounter [facility]* Diagnosis DDD (degenerative disc disease), lumbar Degeneration of lumbar or lumbosacral intervertebral disc documented in this encounter [facility]* Diagnosis Essential hypertension, benign (CMS/HCC)- Primary Essential hypertension, benign Migraine without aura, not intractable, without status migrainosus (CMS/HCC) Spondylosis of lumbar region without myelopathy or radiculopathy Major depressive disorder, recurrent episode, mild degree (HCC) (CMS/HCC) Major depressive disorder, recurrent episode, mild Gastroesophageal reflux disease without esophagitis Esophageal reflux documented in this encounter [facility]* Diagnosis Migraine without aura, not intractable, without status migrainosus (CMS/HCC) documented in this encounter [facility]* Diagnosis Essential hypertension, benign (CMS/HCC)- [...] status migrainosus (CMS/HCC) documented in this encounter [facility]* Diagnosis Essential hypertension, benign (CMS/HCC)- [...] lumbosacral intervertebral disc documented in this encounter [facility]* Diagnosis Essential hypertension, benign (CMS/HCC)- [...] visit, subsequent- Primary documented in this encounter [facility]* Diagnosis DDD (degenerative disc disease), lumbar Degeneration of lumbar or lumbosacral intervertebral disc documented in this encounter [facility]* Diagnosis Migraine without aura, not intractable, without status migrainosus (CMS/HCC)- Primary Overflow incontinence of urine Overflow incontinence Vision changes Cerebrovascular accident (CVA), unspecified mechanism (CMS/HCC) documented in this encounter [facility]* Diagnosis Essential hypertension, benign (CMS/HCC)- [...] status migrainosus (CMS/HCC) documented in this encounter [facility]* Diagnosis Essential hypertension, benign (CMS/HCC)- [...] reflux Medicare annual wellness visit, subsequent- Primary DDD (degenerative disc disease), lumbar Degeneration of lumbar or lumbosacral intervertebral disc documented in this encounter [facility]* Diagnosis Essential hypertension, benign (CMS/HCC)- Primary Essential hypertension, benign Status post left hip replacement Major depressive disorder, recurrent episode, mild degree (HCC) (CMS/HCC) Major depressive disorder, recurrent episode, mild Generalized anxiety disorder (CMS/HCC) Generalized anxiety disorder Osteoporosis, post-menopausal (/HCC) Senile osteoporosis Spondylosis of lumbar region without [...] reflux Medicare annual wellness visit, subsequent- Primary Lumbar spondylosis Lumbosacral spondylosis without myelopathy DDD (degenerative disc disease), lumbar Degeneration of lumbar or lumbosacral intervertebral disc documented in this encounter [facility]* Diagnosis Essential hypertension, benign (CMS/HCC)- [...] status migrainosus (CMS/HCC) [facility] Consultation (Routine) - Authorized Specialty Diagnoses / Procedures Referred By Altagracia yuen Referred To Contact Orthopaedic Surgery Diagnoses Pain from implanted hardware, initial encounter Jr. Kaylan Stewart DO [address] [facility] [address] [place] [address] Aristeo George MD [address] [facility] [address] [place] [address] Referral ID Status Reason Start Date Expiration Date Visits Requested Visits Authorized [id number] Authorized Specialty Services Required 12/01/2023 05/29/2024 1 1 [facility] Summary Purpose Family History No Family History [...] section and content) DATE CREATED AUTHOR 11/11/2019 [facility] DATE CREATED AUTHOR AUTHOR'S ORGANIZ ATION 02/01/2023 [facility] DATE CREATED AUTHOR AUTHOR'S ORGANIZ ATION 02/24/2023 [facility] DATE CREATED AUTHOR AUTHOR'S ORGANIZ ATION 02/24/2024 [facility] DATE CREATED AUTHOR AUTHOR'S ORGANIZ ATION 04/05/2024 [facility] DATE CREATED AUTHOR AUTHOR'S ORGANIZ ATION 07/06/2024 [facility] DATE CREATED AUTHOR AUTHOR'S ORGANIZ ATION 10/14/2024 [facility] EP[employer] Source Comments (unrecognize d section and content) In the event this informatio n is protected by the Federal Confidentiality of Alcohol and Drug Abuse Patient Records regulations: The Federal rules restrict any use of the information to criminally investigate or prosecute any alcohol or drug abuse patient.[facility] the event this information is protected by the Federal Confidentiality of Alcohol and Drug Abuse Patient Records regulations: The Federal rules restrict any use of the information to criminally investigate or prosecute any alcohol or drug abuse patient.[facility] the event this information is protected by the Federal Confidentiality of Alcohol and Drug Abuse Patient Records regulations: The Federal rules restrict any use of the information to criminally investigate or prosecute any alcohol or drug abuse patient.[facility] the event this information is protected by the Federal Confidentiality of Alcohol and Drug Abuse Patient Records regulations: The Federal rules restrict any use of the information to criminally investigate or prosecute any alcohol or drug abuse patient.[facility] the event this information is protected by the Federal Confidentiality of Alcohol and Drug Abuse Patient Records regulations: The Federal rules restrict any use of the information to criminally investigate or prosecute any alcohol or drug abuse patient.[facility] the event this information is protected by the Federal Confidentiality of Alcohol and Drug Abuse Patient Records regulations: The Federal rules restrict any use of the information to criminally investigate or prosecute any alcohol or drug abuse patient.[facility] the event this information is protected by the Federal Confidentiality of Alcohol and Drug Abuse Patient Records regulations: The Federal rules restrict any use of the information to criminally investigate or prosecute any alcohol or drug abuse patient.[facility] the event this information is protected by the Federal Confidentiality of Alcohol and Drug Abuse Patient Records regulations: The Federal rules restrict any use of the information to criminally investigate or prosecute any alcohol or drug abuse patient.[facility] the event this information is protected by the Federal Confidentiality of Alcohol and Drug Abuse Patient Records regulations: The Federal rules restrict any use of the information to criminally investigate or prosecute any alcohol or drug abuse patient.[facility] the event this information is protected by the Federal Confidentiality of Alcohol and Drug Abuse Patient Records regulations: The Federal rules restrict any use of the information to criminally investigate or prosecute any alcohol or drug abuse patient.[facility] the event this information is protected by the Federal Confidentiality of Alcohol and Drug Abuse Patient Records regulations: The Federal rules restrict any use of the information to criminally investigate or prosecute any alcohol or drug abuse patient.[facility] the event this information is protected by the Federal Confidentiality of Alcohol and Drug Abuse Patient Records regulations: The Federal rules restrict any use of the information to criminally investigate or prosecute any alcohol or drug abuse patient.[facility] Hospital[facility] the event this information is protected by the [facility] Confidentiality of Alcohol and Drug Abuse Patient Records regulations: The Federal rules restrict any use of the information to criminally investigate or prosecute any alcohol or drug abuse patient.[facility] Hospital[facility] the event this information is protected by the Federal Confidentiality of Alcohol and Drug Abuse Patient Records regulations: The Federal rules restrict any use of the information to criminally investigate or prosecute any alcohol or drug abuse patient.[facility] Reason for Visit (unrecogniz ed section [...] Comments Med Refill 06/30/2024 Reason Comments Follow-up 6m/H Hospital f/up Reason Onset Date Comments Med Refill 10/19/2024 Reason Onset Date Comments Med Refill 10/30/2024 Care Teams (unrecognized sec tion and content) [employer] Super[employer] Relationship Specialty Start Date End Date ModestoTito ornelas PCP - General Family Practice 06/01/16 [employer] Super[employer] Relationship Specialty Start Date End Date ModestoTito ornelas PCP - General Family Practice 06/01/16 [employer] Super[employer] Relationship Specialty Start Date End Date NadmelanieTito ornelas PCP - General Family Practice 06/01/16 [employer] Supervisor Relationship Specialty Start Date End Date DahliamelanieTito ornelas PCP - General Family Practice 06/01/16 [employer] Supervisor Relationship Specialty Start Date End Date Tito Hillman PCP - General Family Medicine 06/01/16 [employer] Supervisor Relationship Specialty Start Date End Date ModestoTito ornelas PCP - General Family Medicine 06/01/16 [employer] Supervisor Relationship Specialty Start Date End Date Tito Hillman PCP - General Family Medicine 06/01/16 [employer] Supervisor Relationship Specialty Start Date End Date NadTito kruger PCP - General Family Medicine 06/01/16 [employer] Supervisor Relationship Specialty Start Date End Date NadmelanieTito ornelas PCP - General Family Medicine 06/01/16 [employer] Supervisor Relationship Specialty Start Date End Date Tito Hillman PCP - General Family Medicine 06/01/16 [employer] Supervisor Relationship Specialty Start Date End Date [place] [address] PCP - General Family Medicine 11/23/23 [employer] Super[employer] Relationship Specialty Start Date End Date Tito Hillman PCP - General Family Medicine 06/01/16 [employer] Super[employer] Relationship Specialty Start Date End Date Tito Hillman MD [address] [place] [address] PCP - General Family Medicine 11/23/23 [employer] Supervisor Relationship Specialty Start Date End Date Tito Hillman MD [address] [place] [address] PCP - General Family Medicine 11/23/23 [employer] Supervisor Relationship Specialty Start Date End Date Tito Hillman MD [address] [place] [address] PCP - General Family Medicine 11/23/23 [employer] Supervisor Relationship Specialty Start Date End Date Tito Hillman MD [address] [place] [address] PCP - General Family Medicine 11/23/23 [employer] Supervisor Relationship Specialty Start Date End Date Tito Hillman MD [address] [place] [address] PCP - General Family Medicine 11/23/23 [employer] Supervisor Relationship Specialty Start Date End Date Tito Hillman MD [address] [place] [address] PCP - General Family Medicine 11/23/23 [employer] Supervisor Relationship Specialty Start Date End Date Tito Hillman MD [address] [place] [address] PCP - General Family Medicine 11/23/23 [employer] Supervisor Relationship Specialty Start Date End Date Tito Hillman PCP - General Family Medicine 06/01/16 [employer] Supervisor Relationship Specialty Start Date End Date Tito Hillman MD [address] [place] [phone] PCP - General Family Medicine 11/23/23 [employer] Supervisor Relationship Specialty Start Date End Date Tito Hillman MD [address] [place] [address] PCP - General Family Medicine 11/23/23 [employer] Supervisor Relationship Specialty Start Date End Date Tito Hillman MD [address] [place] [phone] PCP - General Family Medicine 11/23/23 [employer] Supervisor Relationship Specialty Start Date End Date Tito Hillman MD [address] [place] [phone] PCP - General Family Medicine 11/23/23 [employer] Supervisor Relationship Specialty Start Date End Date Tito Hillman MD [address] [place] [address] PCP - General Family Medicine 11/23/23 [employer] Supervisor Relationship Specialty Start Date End Date Tito Hillman MD [address] [place] [phone] PCP - [facility] 11/23/23 [employer] Supervisor Relationship Specialty Start Date End Date Tito Hillman MD [address] [place] [address] PCP - [facility] 11/23/23 [employer] Supervisor Relationship Specialty Start Date End Date Tito Hillman MD [address] [place] [phone] PCP - [facility] 11/23/23 [employer] Supervisor Relationship Specialty Start Date End Date Tito Hillman MD [address] [place] [phone] PCP [facility] 11/23/23 [employer] Supervisor Relationship Specialty Start Date End Date Tito Hillman MD [address] [place] [address] [facility] 11/23/23 Tito Hillman MD [address] [place] [phone] PCP - [facility] Reach 12/08/24 FOR RECORDS PERTAINING TO PATIENTS WHO ARE [...] ON THE PRIMARY CLINICAL RECORDS. [facility] [employer] [facility]. provides no warranty or guarantee of the accuracy or completeness of information in this document.
--- NOTE | 2024-12-23 15:14 | XR_ITS ---
The [address] [address] Patient Name: DEEPIKA WILSON MRN: [id number] date: 1940 Sex: F Assigned Patient Location: ER Current Patient Location: ER Accession/Order Number: [id number] Exam Date: 12/23/2024 15:55 Report Date: 12/23/2024 15:57 At the request of: SENIA VALDEZ Procedure: XR chest 1V XR chest 1V 12/23/2024 3:45 PM SIGNS AND SYMPTOMS: Chest pain PROTOCOL: Frontal radiograph of the chest COMPARISON: 12/24/2023 FINDINGS: The trachea is midline. There is an implantable cardiac monitoring device over the anterior left chest wall. The heart and mediastinal structures are within normal limits. The lung parenchyma is clear. There is a dextro convex curvature of the thoracic spine. There is evidence of prior vertebroplasty in the midthoracic spine. This is unchanged. XR/XR chest 1V IMPRESSION: No acute cardiopulmonary pathology. Chronic findings are noted as above. Impression dictated by: Michele Kaufman M.D.12/23/2024 3:57 PM Dictation Location: [place] [address] Electronically authenticated by: [id number] Y Date: 12/23/2024 15:57
--- NOTE | 2024-12-23 15:14 | ECG_ITS ---
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
[2024-12-23] MEDS: NITROGLYCERIN 0.4 MG BOTTLE PO (15:33)
[2024-12-23] MEDS: 0.9 % SODIUM CHLORIDE 1,000 ML 500 ML IV (15:34)
[2024-12-23 15:39] LABS: Basophils Absolute Auto 0.1 10^3/uL (0.0-0.1); Basophils Percent Auto 0.9 % (0.2-2.0); Eosinophils Absolute Auto 0.1 10^3/uL (0.0-0.7); Eosinophils Percent Auto 1.3 % (0.9-7.0); Hematocrit 36.8 % (36.0-48.0); Hemoglobin 12.3 g/dL (12.0-16.0); Immature Granulocytes Abs Auto 0.03 10^3/uL (0.00-0.03); Immature Granulocytes Pct Auto 0.4 % (0.0-0.5); Lymphocytes Absolute Auto 1.4 10^3/uL (1.2-3.8); Lymphocytes Percent Auto 19.6 % (20.5-60.0); Mean Corpuscular HGB Conc 33.4 g/dL (29.9-35.2); Mean Corpuscular Hemoglobin 41.7 pg (26.7-34.0); Mean Corpuscular Volume 124.7 fL (81.0-99.0); Mean Platelet Volume 10.2 fL (9.5-13.5); Monocytes Absolute Auto 0.5 10^3/uL (0.3-0.8); Monocytes Percent Auto 7.4 % (1.7-12.0); Neutrophils Percent Auto 70.4 % (43.0-75.0); Platelet Count 568 10^3/uL (150-450); Red Blood Count 2.95 10^6/uL (4.20-5.40); Red Cell Distribution Width 13.8 % (11.0-15.0)
--- NOTE | 2024-12-23 15:57 | ED_ITS ---
Documented by User: Ana Dhaliwal 12/23/24 18:07 HPI - Chest Pain General Chief Complaint: Chest Pain Stated Complaint: VOMITING, CP Time Seen by Provider: 12/23/24 15:08 History of Present Illness HPI narrative: 84-year-old female presents here to the emergency room by meli with chief complaint of chest pain. she states she had nausea yesterday with emesis and chest pain earlier today. Pain was nonradiating. She does have a history of atrial fibrillation in the past currently in normal sinus rhythm. She denies any chest pain at this time. States she told her daughter she was having chest pain and they decided to bring her to the emergency room. Patient had a history of myocardial stents in the past. She also has a history of blood cancer presents with thrombocytopenia. She sees Dr. Trujillo as a PCP. Patient shows no signs of acute distress at this time. She states the pain was not radiating and felt like a burning sensation. she denies taking her medications earlier today. she ate lunch around noon and kept meal down. Related Data Home Medications ?Medication ?Instructions ?Recorded ?Confirmed aspirin 81 mg capsule 81 mg PO DAILY 12/24/23 06/28/24 atorvastatin 20 mg tablet 20 mg PO .QHS 12/24/23 06/28/24 celecoxib 100 mg capsule 100 mg PO Q12H 12/24/23 06/29/24 hydrocodone 5 mg-acetaminophen 325 1 tab PO Q6H PRN pain 12/24/23 06/28/24 mg tablet isosorbide mononitrate 60 mg 60 mg PO QAM 12/24/23 06/28/24 tablet,extended release 24 hr lisinopril 10 mg tablet 10 mg PO QAM 12/24/23 06/28/24 metoprolol tartrate 25 mg tablet 25 mg PO Q12H 12/24/23 06/28/24 paroxetine HCl 40 mg tablet 40 mg PO QAM 12/24/23 06/28/24 quetiapine 25 mg tablet 25 mg PO .QHS 12/24/23 06/28/24 hydroxyurea 500 mg capsule 500 mg PO DAILY 06/28/24 06/28/24 ondansetron 4 mg disintegrating 4 mg PO Q6H PRN nausea and vomiting 06/28/24 06/28/24 tablet Allergies Allergy/AdvReac Type Severity Reaction Status Date / Time morphine AdvReac Severe Hallucinati Verified 12/23/24 15:05 ng Sulfa (Sulfonamide AdvReac Severe Hives Verified 12/23/24 15:05 Antibiotics) Review of Systems ROS Narrative All Systems are negative except as noted/marked.All systems reviewed and otherwise negative PFSH [facility], [facility] Medical History Essential thrombocytosis ?D47.3 - Essential (hemorrhagic) thrombocythemia (ICD-10) Skin cancer ?C44.90 - Unspecified malignant neoplasm of skin, unspecified (ICD-10) Mini stroke ?G45.9 - Transient cerebral ischemic attack, unspecified (ICD-10) Sleep apnea ?G47.30 - Sleep apnea, unspecified (ICD-10) Afib ?I48.91 - Unspecified atrial fibrillation (ICD-10) HTN (hypertension) ?I10 - Essential (primary) hypertension (ICD-10) Surgical History H/O heart artery stent ?Z95.5 - Presence of coronary angioplasty implant and graft (ICD-10) History of back surgery ?Z98.890 - Other specified postprocedural states (ICD-10) History of left hip replacement ?Z96.642 - Presence of left artificial hip joint (ICD-10) Social History Smoking status: Never smoker Highest level of school completed/degree received: 12th grade, no diploma Little interest or pleasure in doing things: not at all Feeling down, depressed, or hopeless: not at all Exam Narrative Exam Narrative: Nurses note and vital signs reviewed and patient is not hypoxic. General: The patient appears well and in no apparent distress. Patient is resting comfortably on cart. Skin: Warm, dry, no pallor noted. There is no rash noted. Head: Normocephalic, atraumatic Eye: Normal conjunctiva, no drainage, EOMI. PERRL Ears, Nose, Mouth, and Throat: oral mucosa is moist. Nares patent. Mouth without vesicles. Ear canals patent. Tm's without Erythema Cardiovascular: Regular Rate and Rhythm Respiratory: Patient is in no distress, no accessory muscle use, lungs are clear to auscultation, no wheezing, rales or rhonchi Back: non-tender, no CVA tenderness bilaterally to percussion. GI: Normal bowel sounds, no tenderness to palpation, no masses appreciated. No rebound, guarding, or rigidity noted. Musculoskeletal: The patient has no evidence of calf tenderness, no pitting edema, symmetrical pulses noted bilaterally Neurological: A&O x4, normal speech Psychiatric: Cooperative Constitutional Vital Signs, click to edit/add: Last Vital Signs Temp 97.5 F L 12/23/24 15:02 Pulse 65 12/23/24 18:00 Resp 17 12/23/24 15:06 BP 160/76 H 12/23/24 17:00 Pulse Ox 99 12/23/24 18:00 O2 Del Method Room Air 12/23/24 15:02 Course Vital Signs Vital signs: Vital Signs Temperature 97.5 F L 12/23/24 15:02 Pulse Rate 64 12/23/24 15:02 Respiratory Rate 16 12/23/24 15:02 Blood Pressure 188/84 H 12/23/24 15:02 Pulse Oximetry 99 12/23/24 15:02 Oxygen Delivery Method Room Air 12/23/24 15:02 Temperature 97.5 F L 12/23/24 15:02 Pulse Rate 65 12/23/24 18:00 Respiratory Rate 17 12/23/24 15:06 Blood Pressure 160/76 H 12/23/24 17:00 Pulse Oximetry 99 12/23/24 18:00 Oxygen Delivery Method Room Air 12/23/24 15:02 MDM - Chest Pain MDM Narrative Medical decision making narrative: 84-year-old female presents here to the emergency room with chief complaint of nausea yesterday with emesis and chest pain earlier today. Pain was nonradiating. She does have a history of atrial fibrillation in the past currently in normal sinus rhythm. She denies any chest pain at this time. States she told her daughter she was having chest pain and they decided to bring her to the emergency room. Patient had a history of myocardial stents in the past. She also has a history of blood cancer presents with thrombocytopenia. She sees Dr. Trujillo as a PCP. Patient shows no signs of acute distress at this time. She states the pain was not radiating and felt like a burning sensation. Here with chief complaint of chest pain. On arrival to the emergency room EKG was performed showing normal sinus rhythm. Patient also had an EKG by [facility] which showed a normal sinus rhythm no acute changes. Patient had 2 troponins here which were both negative. Patient does have a history of essential thrombocytopenia does see Dr. Stark. She also sees Dr. Trujillo. Emergency room patient was given a one-time dose of nitro. Symptoms did improve. After speaking to the patient and patient's history and negative troponins I believe a lot of her pain is due to gastroenteritis. She states she has a history of vomiting routinely due to her medications. She has not been taking her famotidine as prescribed. Medications were reviewed with the patient and she is encouraged to take it as prescribed daily. Patient does not know that she has been taking that every day. Patient is going to follow-up with her primary care physician return to the emergency room symptoms change or worsen. I have low suspicion of cardiac involvement today. Cardiac score is elevated 3 due to her age. Troponin and EKG are normal. By radiology remainder of her blood work is consistent with her history of blood work results here in our system. Differential Diagnosis Differential diagnosis: Likely unstable angina pectoris, atypical chest pain, costochondritis and other Medical Records Data Attestation: I reviewed the patient's medical records. Lab Data Attestation: I reviewed the patient's lab results. Labs: Lab Results 12/23/24 12/23/24 12/23/24 Range/Units 15:26 15:41 17:24 WBC 7.0 (4.0-11.0) 10^3/uL RBC 2.95 L (4.20-5.40) 10^6/uL Hgb 12.3 (12.0-16.0) g/dL Hct 36.8 (36.0-48.0) % MCV 124.7 H (81.0-99.0) fL MCH 41.7 H (26.7-34.0) pg MCHC 33.4 (29.9-35.2) g/dL RDW 13.8 (11.0-15.0) % Plt Count 568 H (150-450) 10^3/uL MPV 10.2 (9.5-13.5) fL Neut % (Auto) 70.4 (43.0-75.0) % Lymph % (Auto) 19.6 L (20.5-60.0) % [place] % (Auto) 7.4 (1.7-12.0) % Eos % (Auto) 1.3 (0.9-7.0) % Baso % (Auto) 0.9 (0.2-2.0) % Neut # (Auto) 5.0 (1.4-6.5) 10^3/uL Lymph # (Auto) 1.4 (1.2-3.8) 10^3/uL [place] # (Auto) 0.5 (0.3-0.8) 10^3/uL Eos # (Auto) 0.1 (0.0-0.7) 10^3/uL Baso # (Auto) 0.1 (0.0-0.1) 10^3/uL Abs Immat Gran (auto) 0.03 (0.00-0.03) 10^3/uL Imm/Tot Granulo (auto) 0.4 (0.0-0.5) % PT 11.5 (9.0-11.6) sec INR 1.09 APTT 27.2 (22.3-36.2) sec Sodium 139 (136-145) mmol/L Potassium 4.3 (3.5-5.1) mmol/L Chloride 106 (98-107) mmol/L Carbon Dioxide 25.4 (21.0-32.0) mmol/L Anion Gap 11.9 BUN 23.0 H (7.0-18.0) mg/dL Creatinine 0.96 (0.55-1.02) mg/dL Est GFR ( Amer) >60 (>=60 mL/min/1.73m^2) Est GFR (Non-Af Amer) 55 L (>=60 mL/min/1.73m^2) BUN/Creatinine Ratio 24.0 Glucose 118 H (74-106) mg/dL Calcium 8.2 L (8.5-10.1) mg/dL Total Bilirubin 0.2 (0.2-1.0) mg/dL AST 14 L (15-37) U/L ALT 14 (14-59) U/L Alkaline Phosphatase 77 (46-116) U/L Troponin I High Sens 5.4 6.0 (4.0-51.3) pg/mL NT-Pro-B Natriuret Pep 479.0 (<=1800.0) pg/mL Total Protein 6.2 L (6.4-8.2) g/dL Albumin 3.4 (3.4-5.0) g/dL Globulin 2.8 g/dL Albumin/Globulin Ratio 1.2 Imaging Data Chest x-ray: Attestation: I have reviewed the pertinent imaging results. Radiologist's impression: ITS Impressions Chest X-Ray 12/23/24 15:14 IMPRESSION: No acute cardiopulmonary pathology. Chronic findings are noted as above. Impression dictated by: Michele Kaufman M.D.12/23/2024 3:57 PM Dictation Location: [employer] Electronically authenticated by: [id number] Y Date: 12/23/2024 15:57 ECG Data Attestation: ?I have reviewed the pertinent ECG results. Interpretation: 1504 normal sinus rhythm rate of 61 bpm DE interval 162 ms QRS duration [address] elevation or depression no STEMI Heart Score History: Slightly/Non-Suspicious ECG: Normal Age: >65 years Risk Factors: 1 or 2 Risk Factors Troponin: <Normal Limit Total Heart Score Recommendations & Risks:: 3 Discharge Plan Discharge Chief Complaint: Chest Pain Clinical Impression: Chest pain, Gastritis Patient Disposition: Home, Self-Care Time of Disposition Decision: 17:57 Condition: Good Prescriptions / Home Meds: No Action hydroxyurea 500 mg capsule 500 mg PO DAILY ondansetron 4 mg tablet,disintegrating 4 mg PO Q6H PRN (Reason: nausea and vomiting) quetiapine 25 mg tablet 25 mg PO .QHS atorvastatin 20 mg tablet 20 mg PO .QHS hydrocodone-acetaminophen 5-325 mg tablet 1 tab PO Q6H PRN (Reason: pain) isosorbide mononitrate 60 mg tablet extended release 24 hr 60 mg PO QAM lisinopril 10 mg tablet 10 mg PO QAM paroxetine HCl 40 mg tablet 40 mg PO QAM celecoxib 100 mg capsule 100 mg PO Q12H metoprolol tartrate 25 mg tablet 25 mg PO Q12H aspirin 81 mg capsule 81 mg PO DAILY Print Language: Setswana Instructions: Chest Pain (ED), Gastritis (ED) Additional Instructions: take fumotadine as prescribed, follow up with primary care physician wednesday, return to er if symptoms worsen Referrals: Tito Ledezma MD [Physician] - 1 week (call office wednesday morning for follow up appointment) Discharge Date/Time: 12/23/24 18:18 Documented by User: Larry Pedro 12/24/24 07:01 HPI - Chest Pain General Chief Complaint: Chest Pain Stated Complaint: VOMITING, CP Time Seen by Provider: 12/23/24 15:08 Related Data Home Medications ?Medication ?Instructions ?Recorded ?Confirmed aspirin 81 mg capsule 81 mg PO DAILY 12/24/23 06/28/24 atorvastatin 20 mg tablet 20 mg PO .QHS 12/24/23 06/28/24 celecoxib 100 mg capsule 100 mg PO Q12H 12/24/23 06/29/24 hydrocodone 5 mg-acetaminophen 325 1 tab PO Q6H PRN pain 12/24/23 06/28/24 mg tablet isosorbide mononitrate 60 mg 60 mg PO QAM 12/24/23 06/28/24 tablet,extended release 24 hr lisinopril 10 mg tablet 10 mg PO QAM 12/24/23 06/28/24 metoprolol tartrate 25 mg tablet 25 mg PO Q12H 12/24/23 06/28/24 paroxetine HCl 40 mg tablet 40 mg PO QAM 12/24/23 06/28/24 quetiapine 25 mg tablet 25 mg PO .QHS 12/24/23 06/28/24 hydroxyurea 500 mg capsule 500 mg PO DAILY 06/28/24 06/28/24 ondansetron 4 mg disintegrating 4 mg PO Q6H PRN nausea and vomiting 06/28/24 06/28/24 tablet Allergies Allergy/AdvReac Type Severity Reaction Status Date / Time morphine AdvReac Severe Hallucinati Verified 12/23/24 15:05 ng Sulfa (Sulfonamide AdvReac Severe Hives Verified 12/23/24 15:05 Antibiotics) [facility] Medical History Essential thrombocytosis ?D47.3 - Essential (hemorrhagic) thrombocythemia (ICD-10) Skin cancer ?C44.90 - Unspecified malignant neoplasm of skin, unspecified (ICD-10) Mini stroke ?G45.9 - Transient cerebral ischemic attack, unspecified (ICD-10) Sleep apnea ?G47.30 - Sleep apnea, unspecified (ICD-10) Afib ?I48.91 - Unspecified atrial fibrillation (ICD-10) HTN (hypertension) ?I10 - Essential (primary) hypertension (ICD-10) Surgical History H/O heart artery stent ?Z95.5 - Presence of coronary angioplasty implant and graft (ICD-10) History of back surgery ?Z98.890 - Other specified postprocedural states (ICD-10) History of left hip replacement ?Z96.642 - Presence of left artificial hip joint (ICD-10) Social History Smoking status: Never smoker Highest level of school completed/degree received: 12th grade, no diploma Little interest or pleasure in doing things: not at all Feeling down, depressed, or hopeless: not at all Exam Constitutional Vital Signs, click to edit/add: Last Vital Signs Temp 97.5 F L 12/23/24 15:02 Pulse 65 12/23/24 18:00 Resp 17 12/23/24 15:06 BP 160/76 H 12/23/24 17:00 Pulse Ox 99 12/23/24 18:00 O2 Del Method Room Air 12/23/24 15:02 Course Vital Signs Vital signs: Vital Signs Temperature 97.5 F L 12/23/24 15:02 Pulse Rate 64 12/23/24 15:02 Respiratory Rate 16 12/23/24 15:02 Blood Pressure 188/84 H 12/23/24 15:02 Pulse Oximetry 99 12/23/24 15:02 Oxygen Delivery Method Room Air 12/23/24 15:02 Temperature 97.5 F L 12/23/24 15:02 Pulse Rate 65 12/23/24 18:00 Respiratory Rate 17 12/23/24 15:06 Blood Pressure 160/76 H 12/23/24 17:00 Pulse Oximetry 99 12/23/24 18:00 Oxygen Delivery Method Room Air 12/23/24 15:02 MDM - Chest Pain Lab Data Labs: Lab Results 12/23/24 12/23/24 12/23/24 Range/Units 15:26 15:41 17:24 WBC 7.0 (4.0-11.0) 10^3/uL RBC 2.95 L (4.20-5.40) 10^6/uL Hgb 12.3 (12.0-16.0) g/dL Hct 36.8 (36.0-48.0) % MCV 124.7 H (81.0-99.0) fL MCH 41.7 H (26.7-34.0) pg MCHC 33.4 (29.9-35.2) g/dL RDW 13.8 (11.0-15.0) % Plt Count 568 H (150-450) 10^3/uL MPV 10.2 (9.5-13.5) fL Neut % (Auto) 70.4 (43.0-75.0) % Lymph % (Auto) 19.6 L (20.5-60.0) % [place] % (Auto) 7.4 (1.7-12.0) % Eos % (Auto) 1.3 (0.9-7.0) % Baso % (Auto) 0.9 (0.2-2.0) % Neut # (Auto) 5.0 (1.4-6.5) 10^3/uL Lymph # (Auto) 1.4 (1.2-3.8) 10^3/uL [place] # (Auto) 0.5 (0.3-0.8) 10^3/uL Eos # (Auto) 0.1 (0.0-0.7) 10^3/uL Baso # (Auto) 0.1 (0.0-0.1) 10^3/uL Abs Immat Gran (auto) 0.03 (0.00-0.03) 10^3/uL Imm/Tot Granulo (auto) 0.4 (0.0-0.5) % PT 11.5 (9.0-11.6) sec INR 1.09 APTT 27.2 (22.3-36.2) sec Sodium 139 (136-145) mmol/L Potassium 4.3 (3.5-5.1) mmol/L Chloride 106 (98-107) mmol/L Carbon Dioxide 25.4 (21.0-32.0) mmol/L Anion Gap 11.9 BUN 23.0 H (7.0-18.0) mg/dL Creatinine 0.96 (0.55-1.02) mg/dL Est GFR ( Amer) >60 (>=60 mL/min/1.73m^2) Est GFR (Non-Af Amer) 55 L (>=60 mL/min/1.73m^2) BUN/Creatinine Ratio 24.0 Glucose 118 H (74-106) mg/dL Calcium 8.2 L (8.5-10.1) mg/dL Total Bilirubin 0.2 (0.2-1.0) mg/dL AST 14 L (15-37) U/L ALT 14 (14-59) U/L Alkaline Phosphatase 77 (46-116) U/L Troponin I High Sens 5.4 6.0 (4.0-51.3) pg/mL NT-Pro-B Natriuret Pep 479.0 (<=1800.0) pg/mL Total Protein 6.2 L (6.4-8.2) g/dL Albumin 3.4 (3.4-5.0) g/dL Globulin 2.8 g/dL Albumin/Globulin Ratio 1.2 Imaging Data Chest x-ray: Radiologist's impression: ITS Impressions Chest X-Ray 12/23/24 15:14 IMPRESSION: No acute cardiopulmonary pathology. Chronic findings are noted as above. Impression dictated by: Michele Kaufman M.D.12/23/2024 3:57 PM Dictation Location: [employer] Electronically authenticated by: [id number] Y Date: 12/23/2024 15:57 Heart Score Total Heart Score Recommendations & Risks:: 3 Discharge Plan Discharge Chief Complaint: Chest Pain Clinical Impression: Chest pain, Gastritis Patient Disposition: Home, Self-Care Time of Disposition Decision: 17:57 Condition: Good Prescriptions / Home Meds: No Action hydroxyurea 500 mg capsule 500 mg PO DAILY ondansetron 4 mg tablet,disintegrating 4 mg PO Q6H PRN (Reason: nausea and vomiting) quetiapine 25 mg tablet 25 mg PO .QHS atorvastatin 20 mg tablet 20 mg PO .QHS hydrocodone-acetaminophen 5-325 mg tablet 1 tab PO Q6H PRN (Reason: pain) isosorbide mononitrate 60 mg tablet extended release 24 hr 60 mg PO QAM lisinopril 10 mg tablet 10 mg PO QAM paroxetine HCl 40 mg tablet 40 mg PO QAM celecoxib 100 mg capsule 100 mg PO Q12H metoprolol tartrate 25 mg tablet 25 mg PO Q12H aspirin 81 mg capsule 81 mg PO DAILY Print Language: Setswana Instructions: Chest Pain (ED), Gastritis (ED) Additional Instructions: take fumotadine as prescribed, follow up with primary care physician wednesday, return to er if symptoms worsen Referrals: Tito Ledezma MD [Physician] - 1 week (call office wednesday for follow up appointment) Discharge Date/Time: 12/23/24 18:18
[2024-12-23 16:01] LABS: Alanine Aminotransferase 14 U/L (14-59); Albumin Globulin Ratio 1.2; Albumin Level 3.4 g/dL (3.4-5.0); Alkaline Phosphatase 77 U/L (46-116); Anion Gap 11.9; Aspartate Amino Transferase 14 U/L (15-37); Bilirubin Total 0.2 mg/dL (0.2-1.0); Calcium 8.2 mg/dL (8.5-10.1); Carbon Dioxide 25.4 mmol/L (21.0-32.0); Chloride 106 mmol/L (98-107); Estimated GFR (African America >60 (>=60 mL/min/1.73m^2); Estimated GFR (Non-African Ame 55 (>=60 mL/min/1.73m^2); Globulin 2.8 g/dL; Glucose 118 mg/dL (74-106); Potassium 4.3 mmol/L (3.5-5.1); Sodium 139 mmol/L (136-145); Total Protein 6.2 g/dL (6.4-8.2)
[2024-12-23 16:01] LABS: INR 1.09; Partial Thromboplastin Time 27.2 sec (22.3-36.2); Prothrombin Time 11.5 sec (9.0-11.6)
[2024-12-23 16:10] LABS: Troponin I High Sensitivity 5.4 pg/mL (4.0-51.3)
== END 2024-12-23 18:18 | disposition home or self-care (01) ==
PROVIDERS: Physician Assistant; Emergency Provider Emergency Medicine; PCP Physician Assistant
DX: R07.89 Other chest pain (principal); K29.70 Gastritis, unspecified, without bleeding; R11.2 Nausea with vomiting, unspecified; Z86.2 Personal history of diseases of the blood and blood-forming organs and certain disorders involving the immune mechanism
CPT/HCPCS: 36415; 71045; 80053; 83880; 84484; 85025; 85610; 85730; 93005; 96360; 96361; 99285

== ENCOUNTER 2025-01-12 10:54 | Outpatient (OUT) | payer MEDICARE, OTHER, SELFPAY ==
--- NOTE | 2025-01-12 | NM_ITS ---
Patient Name: DEEPIKA WILSON MR#: [id number] : 1940 Exam Date: 01/12/2025 Ordering Doctor: DR Tito Ledezma . RADIOLOGY REPORT PROCEDURE: NM BOB PERF SPECT REST STR COMPARISON: None. 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 For more details, please see separate cardiac stress test report. FINDINGS: QUALITY OF STUDY: Good PERFUSION DEFECT: None WALL MOTION: Normal wall motion LV SIZE: 50 mL. TID / TCD: 0.9 LVEF: Calculated EF 84%. SUMMARY: Myocardial perfusion imaging study is normal CONCLUSION: 1. Myocardial perfusion is normal 2. Global left ventricular systolic function is hyperdynamic 3. No evidence of transient ischemic dilatation Dictated by: Stoney Lorenzo M.D. on 01/16/2025 at 12:42 Approved by: Stoney Lorenzo M.D. on 01/16/2025 at 12:43
--- OUTSIDE RECORDS SUMMARY | 2025-01-12 11:03 | XMS_ITS | CCD ---
Author Organization [facility] Care Team Providers Care Secretary Of Police Name Role Phone DESTINEE SMART Admitting Unavailable DESTINEE SMART Attending Unavailable UNKNOWN, PHYSICIAN Referring Unavailable UNKNOWN, PHYSICIAN Primary Care Unavailable Kady, Tito Lopez Primary Care Provider [phone] Naderer, Tito Lopez Primary Care Provider Naderer, [...] Care Unavailable JULIANA PRAKASH Admitting Unavailable HALEY ., JULIANA Attending Unavailable JOCELYN, DR LUZ Ornelas Consulting Unavailable HALEY ., JULIANA Consulting Unavailable LINA DOE Attending Unavailable Tito Hillman MD Primary Care Provider [phone] ARISTEO ACE Referring Unavailable VEGAS, GAEL Primary Care Unavailable DB, ARISTEO Kapadia Referring Unavailable VEGAS, GAEL Primary Care Unavailable GEETA, MICHAEL Attending Unavailable TALIB, JAMAL Francisco Admitting Unavailable VEGAS, GAEL Primary Care Unavailable ARISTEO ACE Consulting Unavailable ASLAM, CARLOS Consulting Unavailable Naderer, Tito Lopez Primary Care Provider KADY, TITO Lopez Primary Care Unavailable ABHYANKAR, [...] NADERER, TITO Primary Care Unavailable NADEREJohnson, TITO Referring Unavailable NADEREJohnson, TITO Primary Care Unavailable NADERER, TITO Primary Care Unavailable NADERER, TITO Referring Unavailable NADEREJohnson, TITO Primary Care Unavailable Naderer Tito ESQUIVEL Unavailable KADY, TITO Attending Unavailable NADERER, TITO Attending Unavailable NADERER, TITO Attending Unavailable NADERER, TITO Attending Unavailable NADERER, TITO Attending Unavailable Allergies Allergy Classification Reported Allergen(s) Allergy Type Date of Onset Reaction(s) Facility Opioid Agonists (1 source) Morphine; Translations: [MORPHINE] Drug Allergy 4 [facility] sulfaSALAzine (1 source) sulfaSALAzine; Translations: [SULFASALAZINE] Drug Allergy 4 [facility] Sulfonamides (antibiotic) (1 source) Sulfonamides (Antibiotic); Translations: [SULFA (SULFONAMIDE ANTIBIOTICS)] Drug Allergy 5 [facility] Sulfur (1 source) Sulfur; Translations: [SULFUR] Drug Allergy 4 [facility] (20 sources) Morphine; Translations: [MORPHINE] Drug Allergy 4 Unknown, Rash, GI intolerance [facility] (15 sources) sulfaSALAzine; Translations: [SULFASALAZINE] Drug Allergy 4 Unknown [facility] (20 sources) Sulfonamides (Antibiotic); Translations: [SULFA (SULFONAMIDE ANTIBIOTICS)] Drug Allergy 4 Unknown, Swelling, Rash [facility] (15 sources) Sulfur; Translations: [SULFUR] Drug Allergy 4 Unknown [facility] (1 source) Morphine Drug Allergy 6 [facility] (1 source) Sulfonamides (Antibiotic) Drug allergy (disorder) 6 [facility] (20 sources) Ciprofloxacin Drug Allergy 2 Hallucinations [facility] Medications Current Medications Medication Drug Class(es) Dates Sig (Normalized) Sig (Original) acetaminophen 325 mg / butalbital 50 mg / caffeine 40 mg oral tablet (20 sources) Barbiturate, Central Nervous System Stimulant, Methylxanthine Start: 11-06-2024 End: 12-15-2024 take 1 tablet by mouth four times daily as needed butalbital-acetam inophen-caffeine 50-325-40 MG tablet Indications: Migraine without aura, not intractable, without status migrainosus (CMS/HCC) Take 1 tablet by mouth 4 (four) times a day as needed for migraine 30 tablet 1 12/15/2024 Active Start: 10-19-2024 take 1 tablet by mouth four times daily as needed mwhcoxquim-mphstrfuxwufn-zuikbrhz 50-325 -40 MG tablet Indications: Migraine without aura, not intractable, without status migrainosus (CMS/HCC) TAKE 1 TABLET BY MOUTH FOUR TIMES DAILY NEEDED 30 tablet 1 10/19/2024 Active Start: 09-13-2024 take 1 tablet by mouth four times daily as needed olesdzasvs-qhlcjiafxydbf-ucifvkzs 50-325 -40 MG tablet Indications: Migraine without aura, not intractable, without status migrainosus (CMS/HCC) TAKE 1 TABLET BY MOUTH FOUR TIMES DAILY NEEDED 30 tablet 1 09/13/2024 Active Start: 07-14-2024 take 1 tablet by mouth four times daily as needed for headache ewxzddlpjh-bphbjycclbewm-pezazsfl 50-325 -40 MG tablet Indications: Migraine without aura, not intractable, without status migrainosus (CMS/HCC) TAKE 1 TABLET BY MOUTH FOUR TIMES DAILY NEEDED FOR HEADACHE 30 tablet 07/14/2024 Active Start: 07-06-2024 End: 09-13-2024 take 1 tablet by mouth four times daily as needed sttqxnmnas-kwekznuwdnfpi-qpggeigm 50-325 -40 MG tablet Indications: Migraine without aura, not intractable, without status migrainosus (CMS/HCC) TAKE 1 TABLET BY MOUTH FOUR TIMES DAILY NEEDED 30 tablet 1 09/13/2024 Active acetaminophen 325 mg / HYDROcodone bitartrate 5 mg oral tablet (20 sources) Opioid Agonist Start: 05-31-2024 End: 01-31-2025 take 1 tablet by mouth four times daily as needed for pain HYDROcodone-acetaminophen ([place]) 5-325 MG tablet Indications: DDD (degenerative disc disease), lumbar Take 1 tablet by mouth 4 (four) times a day as needed for severe pain 120 tablet 01/01/2025 01/31/2025 Active Start: 11-29-2023 End: 12-29-2023 take 1 tablet by mouth four times daily as needed for pain HYDROcodone-acetaminophen ([place]) 5-325 MG tablet Indications: DDD (degenerative disc [...] ely th every 6 hours as needed. [id number] 200 actuat albuterol 0.09 mg/actuat metered dose [...] tablet (20 sources) HMG-CoA Reductase Inhibitor Start: take 1 tablet by mouth once daily [...] sources) Nonsteroidal Anti-inflammatory Drug Start: 10-12-20 24 End: 12-04-19 25 take 1 capsule by mouth twice daily at bedtime celecoxib (CeleBREX) 100 MG capsule Indications: Lumbar spondylosis TAKE 1 CAPSULE BY MOUTH TWICE DAILY (IN THE MORNING and BEFORE bedtime) 30 capsule 5 12/04/2024 Active Start: 07-24-2024 take 1 capsule by mo [facility] twice daily at bedtime celecoxib (CeleBREX) 100 [...] (40 mg) by mouth Daily 30 tablet 5 01/24/2024 Active gabapentin 100 mg oral capsule [...] hr tablet Indications: 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 Take before meals. Do not crush or chew.. 30 capsule 3 01/04/2025 Active Start: 04-29-2017 take 1 capsule by mo [facility] once daily Omeprazole 40 mg capsule Take [...] Serotonin-1b and Serotonin-1d Receptor Agonist Start: 10-02-2024 End: 01-01-2025 SUMAtriptan (Imitrex) 50 MG tablet Indications: Migraine without aura, not intractable, without status migrainosus (CMS/HCC) Take 1 tablet (50 mg) by mouth 1 (one) time if needed for migraine May repeat dose once in 2 hours if no relief. Do not exceed 2 doses in 24 hours. 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] Onset: 06-08-2016 Chronic Nonmalignant breast conditions (7 sources) Unspecified lump in unspecified breast; Translations: [Mastodynia] Onset: 02-09-2022 Episodic Nonspecific chest pain (3 sources) Chest pain; Translations: [Chest pain, unspecified] Onset: 01-04-2025 01-04-2025 Episodic Osteoporosis (20 sources) Postmenopausal osteoporosis; 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 without current pathological fracture] Onset: 01-24-2024 01-24-2024 Chronic Other aftercare (5 sources) Other dog food dough mixer (current) drug therapy; Translations: [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] Onset: 05-07-2022 Episodic Other [...] headaches] Onset: 01-18-2018 01-18-2018 Episodic Mood disorders (10 sources) Mood disorders Onset: 10-11-2024 10-11-2024 Other aftercare (1 source) 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; 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] Onset: 08-25-2022 Episodic [...] CRP [Mass/Vol] mg/L NINF - 0.50 mg/dL [facility] ALL LDHon 11-14-2024 LDH [Catalytic activity/Vol] 195 U/L 81 - 234 U/L [facility] CCF CMP (CMP) (FOR REMOTE FH C USE)on 11-14-2024 Albumin [Mass/Vol] 4 g/dL 3.4 - 5.0 g/dL NO [facility] ALBUMIN GLOBULIN RATIO 1.3 [facility] ALP [Catalytic activity/Vol] 70 U/L 46 - 116 U/L [facility] ALT [Catalytic activity/Vol] 11 U/L Low 14 - 59 U/L [facility] Anion gap [Moles/Vol] 12.6 mmol/L [facility] AST [Catalytic activity/Vol] 11 U/L Low 15 - 37 U/L [facility] Bilirubin [Mass/Vol] 0.5 mg/dL 0.2 - 1.0 mg/dL [facility] Calcium [Mass/Vol] 8.4 mg/dL Low 8.5 - 10. 1 mg/dL [facility] Chloride [Moles/Vol] 106 mmol/L 98 - 107 mmol/L [facility] CO2 [Moles/Vol] 24.7 mmol/L 21.0 - 32.0 mmol/L [facility] Creatinine [Mass/Vol] 0.95 mg/dL 0.55 - 1.02 mg/dL [facility] GFR/1.73 sq M.predicted CKD-EPI (S/P/Bld) [Vol rate/Area] >60 >=60 mL/min/1.73m 2 [facility] Globulin (S) [Mass/Vol] 3 g/dL [facility] Glucose [Mass/Vol] 87 mg/dL 74 - 106 mg/dL NO [facility] Interpretation and review of laboratory results Abnormal [facility] Potassium [Moles/Vol] 4.3 mmol/L 3.5 - 5.1 mmol/L [facility] Protein [Mass/Vol] 7 g/dL 6.4 - 8.2 g/dL NO [facility] Sodium [Moles/Vol] 139 mmol/L 136 - 145 mmol/L [facility] TBH EGFR-NON AF GUAMANIAN 56 Low >=60 mL/min/1.73m 2 [facility] Urea nitrogen [Mass/Vol] 15 mg/dL 7.0 - 18.0 mg/dL [facility] Urea nitrogen/Creatinine [Mass ratio] 15.8 mg/mg [facility] No Panel Informationon 11-14 [facility] ALL CBC WITH AUTO DIFFon BASOPHILS ABSOLUTE AUTO 0.1 [facility] Basophils/100 WBC (Bld) 1.3 % 0.2 - 2.0 % [facility] Eosinophils/100 WBC (Bld) 2 % 0.9 - 7.0 % [facility] Erythrocyte distribution width (RBC) [Ratio] 14.3 % 11.0 - 15.0 % [facility] Hematocrit (Bld) [Volume fraction] 39.6 % 36.0 - 48.0 % [facility] Hemoglobin (Bld) [Mass/Vol] 13.6 g/dL 12.0 - 16.0 g/dL [facility] IMMATURE GRANULOCYTES ABS AUTO 0.02 [facility] Immature granulocytes/100 WBC (Bld) 0.4 % 0.0 - 0.5 % [facility] Interpretation and review of laboratory results Abnormal [facility] LYMPHOCYTES ABSOLUTE AUTO 1.3 [facility] Lymphocytes/100 WBC (Bld) 28.2 % 20.5 - 60.0 % [facility] MCH (RBC) [Entitic mass] 43.9 pg High 26.7 - 34.0 pg [facility] MCHC (RBC) [Mass/Vol] 34.3 g/dL 29.9 - 35.2 g/dL [facility] MCV (RBC) [Entitic vol] 127.7 fL High 81.0 - 99.0 fL [facility] Comment on above: MACROCYTOSIS 4+ MONOCYTES ABSOLUTE AUTO 0.4 [facility] Monocytes/100 WBC (Bld) 8.8 % 1.7 - 12.0 % [facility] NEUTROPHILS ABSOLUTE AUTO 2.7 [facility] Neutrophils/100 WBC (Bld) 59.3 % 43.0 - 75.0 % [facility] Platelet mean volume (Bld) [Entitic vol] 10.2 fL 9.5 - 13.5 fL [facility] TB EO # 0.1 [facility] PLT 451 High [facility] RBC 3.1 Low [facility] WBC 4.6 [facility] No Panel Informationon 08-29 [facility] RETICULOCYTE PCT AUTOon 08-02 RETICULOCYTE PCT AUTO 1.62 % 0.60 - 3.10 % [facility] ALL LDHon 07-14-2024 LDH [Catalytic activity/Vol] 167 U/L 81 - 234 U/L [facility] CCF CMP (CMP) (FOR REMOTE FH C USE)on 07-14-2024 Albumin [Mass/Vol] 3.9 g/dL 3.4 - 5.0 g/dL NO [facility] ALBUMIN GLOBULIN RATIO 1.3 [facility] ALP [Catalytic activity/Vol] 90 U/L 46 - 116 U/L [facility] ALT [Catalytic activity/Vol] 14 U/L 14 - 59 U/L [facility] Anion gap [Moles/Vol] 15.7 mmol/L [facility] AST [Catalytic activity/Vol] 17 U/L 15 - 37 U/L [facility] Bilirubin [Mass/Vol] 0.5 mg/dL 0.2 - 1.0 mg/dL [facility] Calcium [Mass/Vol] 8.9 mg/dL 8.5 - 10. 1 mg/dL [facility] Chloride [Moles/Vol] 101 mmol/L 98 - 107 mmol/L [facility] CO2 [Moles/Vol] 23.6 mmol/L 21.0 - 32.0 mmol/L [facility] Creatinine [Mass/Vol] 1.37 mg/dL High 0.55 - 1.02 mg/dL [facility] GFR/1.73 sq M.predicted CKD-EPI (S/P/Bld) [Vol rate/Area] 44 Low 60 - PINF [facility] Globulin (S) [Mass/Vol] 3.1 g/dL [facility] Glucose [Mass/Vol] 130 mg/dL High 74 - 106 mg/dL NO [facility] Interpretation and review of laboratory results Abnormal [facility] Potassium [Moles/Vol] 4.3 mmol/L 3.5 - 5.1 mmol/L [facility] Protein [Mass/Vol] 7.0 g/dL 6.4 - 8.2 g/dL NO [facility] Sodium [Moles/Vol] 136 mmol/L 136 - 145 mmol/L [facility] TB EGFR-NON AF GUAMANIAN 37 Low 60 - PINF [facility] Urea nitrogen [Mass/Vol] 17.0 mg/dL 7.0 - 18.0 mg/dL [facility] Urea nitrogen/Creatinine [Mass ratio] 12.4 mg/mg [facility] No Panel Informationon 07-14 [facility] CNPNon 04-04-2024 CNPN Telephone (HEMASA) JOSEFA CASTILLO ([id number]) 1940 F Date Time Provider Department 04/04/24 ROD ROMAN JANESSAEVERARDO During your visit today, we recorded the following information about you: Janeth Pelletier MA 04/04/2024 10:32 AM Signed Patient has an appt on 04/17/24. Would you like labs-her labs are , please place orders. 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 Interpreted by: Aristeo Ace DO Signed by: Aristeo Ace DO 02/23/24 Final result Normal [facility] XR HIP 2-3 VW W PELVIS [...] Stable left hip arthroplasty Interpreted by: Aristeo Ace DO Signed by: Aristeo Ace DO 01/07/24 Final result Normal [facility] XR HIP 2-3 VW W PELVIS [...] with osteoarthritis left hip Interpreted by: Aristeo Ace DO Signed by: Aristeo Ace, 12/29/23 Final result Normal [facility] CBC with Diffon 12-22-2023 Abs. Basophil 0.00 k/uL Normal 0.00-0.20 [facility] Comment on above: Performed By: #### C DP #### [place] [address] Hospital Internship: Ti Willis MD Abs.Imm.Granulocyte 0.10 k/uL Normal 0.00-0.30 [facility] Comment on above: Performed By: #### C DP #### [place] [address] Hospital Internship: Ti Willis MD Abs.Neutrophil (Seg) 6.92 k/uL Normal 1.50-8.10 [facility] Comment on above: Performed By: #### C DP #### [place] [address] Hospital Internship: Ti Willis MD Basophils/100 WBC (Bld) 0 % Normal 0-2 [facility] Comment on above: Performed By: #### C DP #### [place] [address] Hospital Internship: Ti Willis MD Eosinophils (Bld) [#/Vol] 0.10 10*3/uL Normal 0.00-0.44 [facility] Comment on above: Performed By: #### C DP #### [place] [address] Hospital Internship: Ti Willis MD Eosinophils/100 WBC (Bld) 1 % Normal 1-4 [facility] Comment on above: Performed By: #### C DP #### [address] [address] Hospital Internship: Ti Willis MD Immature granulocytes/100 WBC (Bld) 1 % High 0 [facility] Comment on above: Performed By: #### C DP #### [address] [address] Hospital Internship: Ti Willis MD Lymphocytes (Bld) [#/Vol] 1.43 10*3/uL Normal 1.10-3.70 [facility] Comment on above: Performed By: #### C DP #### [address] [address] Hospital Internship: Ti Willis MD Lymphocytes/100 WBC (Bld) 15 % Low 24-43 [facility] Comment on above: Performed By: #### C DP #### [address] [address] Hospital Internship: Ti Willis MD Monocytes (Bld) [#/Vol] 0.95 10*3/uL Normal 0.10-1.20 [facility] Comment on above: Performed By: #### C DP #### [address] [address] Hospital Internship: Ti Willis MD Monocytes/100 WBC (Bld) 10 % Normal 3-12 [facility] Comment on above: Performed By: #### C DP #### [address] [address] Hospital Internship: iT Willis MD Morphology Juni (Bld) [Interp] ANISOCYTOSIS PRESENT Normal [facility] Comment on above: Result Comment: MACR OCYTOSIS PRESENT Performed By: #### C DP #### [address] [place] [address] Hospital Internship: Ti Willis MD Neutrophil (Seg) 73 % High 36-65 [facility] Comment on above: Performed By: #### C DP #### [address] [address] Hospital Internship: Ti Willis MD Erythrocyte distribution width (RBC) [Ratio] 18.4 % High 11.8-14.4 [facility] Comment on above: Performed By: #### C DP #### [address] [address] Hospital Internship: Ti Willis MD Hematocrit (Bld) [Volume fraction] 26.4 % Low 36.3-47.1 [facility] Comment on above: Performed By: #### C DP #### [address] [address] Hospital Internship: Ti Willis MD Hemoglobin (Bld) [Mass/Vol] 8.5 g/dL Low 11.9-15.1 [facility] Comment on above: Performed By: #### C DP #### [address] [address] Hospital Internship: Ti Willis MD MCH (RBC) [Entitic mass] 40.3 pg High 25.2-33.5 [facility] Comment on above: Performed By: #### C DP #### [address] [address] Hospital Internship: Ti Willis MD MCHC (RBC) [Mass/Vol] 32.2 g/dL Normal 28.4-34.8 [facility] Comment on above: Performed By: #### C DP #### [address] [address] Hospital Internship: Ti Willis MD MCV (RBC) [Entitic vol] 125.1 fL High 82.6-102.9 [facility] Comment on above: Performed By: #### C DP #### [address] [address] Hospital Internship: Ti Willis MD NRBC Automated 0.0 per 100 WBC Normal 0.0 [facility] Comment on above: Performed By: #### C DP #### [address] [address] Hospital Internship: Ti Willis MD Platelet mean volume (Bld) [Entitic vol] 10.6 fL Normal 8.1-13.5 [facility] Comment on above: Performed By: #### C DP #### [address] [address] Hospital Internship: Ti Willis MD Platelets (Bld) [#/Vol] 454 10*3/uL High 138-453 [facility] Comment on above: Performed By: #### C DP #### [address] [address] Hospital Internship: Ti Willis MD RBC (Bld) [#/Vol] 2.11 10*6/uL Low 3.95-5.11 [facility] Comment on above: Performed By: #### C DP #### [address] [address] Hospital Internship: Ti Willis MD WBC (Bld) [#/Vol] 9.5 10*3/uL Normal 3.5-11.3 [facility] Comment on above: Performed By: #### C DP #### [address] [address] Hospital Internship: Ti Willis MD B12/Folate Panelon 4 Cobalamin (Vitamin B12) [Mass/Vol] 295 pg/mL Normal 232-1245 [facility] Comment on above: Performed By: #### W BK, WBCL, CVHH, WBNA, ABG, LACTIC, IOCAL, GLUO #### [address] [address] Hospital Internship: Ti Willis MD Folic Acid 5.6 ng/mL Normal >4.8 [facility] Comment on above: Performed By: #### W BK, WBCL, CVHH, WBNA, ABG, LACTIC, IOCAL, GLUO #### [address] [address] Hospital Internship: Ti Willis MD CBC with Diffon 12-21-2023 Abs. Basophil 0.00 k/uL Normal 0.00-0.20 [facility] Comment on above: Performed By: #### W BK, WBCL, CVHH, WBNA, ABG, LACTIC, IOCAL, GLUO #### [address] [address] Hospital Internship: Ti Willis MD Abs.Imm.Granulocyte 0.11 k/uL Normal 0.00-0.30 [facility] Comment on above: Performed By: #### W BK, WBCL, CVHH, WBNA, ABG, LACTIC, IOCAL, GLUO #### [address] [address] Hospital Internship: Ti Willis MD Abs.Neutrophil (Seg) 8.96 k/uL High 1.50-8.10 [facility] Comment on above: Performed By: #### W BK, WBCL, CVHH, WBNA, ABG, LACTIC, IOCAL, GLUO #### [address] [address] Hospital Internship: Ti Willis MD Basophils/100 WBC (Bld) 0 % Normal 0-2 [facility] Comment on above: Performed By: #### W BK, WBCL, CVHH, WBNA, ABG, LACTIC, IOCAL, GLUO #### [address] [address] Hospital Internship: Ti Willis MD Eosinophils (Bld) [#/Vol] 0.11 10*3/uL Normal 0.00-0.44 [facility] Comment on above: Performed By: #### W BK, WBCL, CVHH, WBNA, ABG, LACTIC, IOCAL, GLUO #### [facility] [address] [place] [address] Hospital Internship: Ti Willis MD Eosinophils/100 WBC (Bld) 1 % Normal 1-4 [facility] Comment on above: Performed By: #### W BK, WBCL, CVHH, WBNA, ABG, LACTIC, IOCAL, GLUO #### [address] [address] Hospital Internship: Ti Willis MD Immature granulocytes/100 WBC (Bld) 1 % High 0 [facility] Comment on above: Performed By: #### W BK, WBCL, CVHH, WBNA, ABG, LACTIC, IOCAL, GLUO #### [facility] [employer] [address] [place] [address] Hospital Internship: Ti Willis MD Lymphocytes (Bld) [#/Vol] 1.12 10*3/uL Normal 1.10-3.70 [facility] Comment on above: Performed By: #### W BK, WBCL, CVHH, WBNA, ABG, LACTIC, IOCAL, GLUO #### [address] [address] Hospital Internship: Ti Willis MD Lymphocytes/100 WBC (Bld) 10 % Low 24-43 [facility] Comment on above: Performed By: #### W BK, WBCL, CVHH, WBNA, ABG, LACTIC, IOCAL, GLUO #### [facility] [employer] [address] [place] [address] Hospital Internship: Ti Willis MD Monocytes (Bld) [#/Vol] 0.90 10*3/uL Normal 0.10-1.20 [facility] Comment on above: Performed By: #### W BK, WBCL, CVHH, WBNA, ABG, LACTIC, IOCAL, GLUO #### [facility] [address] [place] [address] Hospital Internship: Ti Willis MD Monocytes/100 WBC (Bld) 8 % Normal 3-12 [facility] Comment on above: Performed By: #### W BK, WBCL, CVHH, WBNA, ABG, LACTIC, IOCAL, GLUO #### [address] [address] Hospital Internship: Ti Willis MD Morphology Juni (Bld) [Interp] ANISOCYTOSIS PRESENT Normal [facility] Comment on above: Result Comment: MACR OCYTOSIS PRESENT Performed By: #### W BK, WBCL, CVHH, WBNA, ABG, LACTIC, IOCAL, GLUO #### [address] [address] Hospital Internship: Ti Willis MD Neutrophil (Seg) 80 % High 36-65 [facility] Comment on above: Performed By: #### W BK, WBCL, CVHH, WBNA, ABG, LACTIC, IOCAL, GLUO #### [facility] [address] [place] [address] Hospital Internship: Ti Willis MD Erythrocyte distribution width (RBC) [Ratio] 18.4 % High 11.8-14.4 [facility] Comment on above: Performed By: #### W BK, WBCL, CVHH, WBNA, ABG, LACTIC, IOCAL, GLUO #### [facility] [address] [place] [address] Hospital Internship: Ti Willis MD Hematocrit (Bld) [Volume fraction] 24.4 % Low 36.3-47.1 [facility] Comment on above: Performed By: #### W BK, WBCL, CVHH, WBNA, ABG, LACTIC, IOCAL, GLUO #### [address] [id number] Hospital Internship: Ti Willis MD Hemoglobin (Bld) [Mass/Vol] 7.9 g/dL Low 11.9-15.1 [facility] Comment on above: Performed By: #### W BK, WBCL, CVHH, WBNA, ABG, LACTIC, IOCAL, GLUO #### [address] [address] Hospital Internship: Ti Willis MD MCH (RBC) [Entitic mass] 40.5 pg High 25.2-33.5 [facility] Comment on above: Performed By: #### W BK, WBCL, CVHH, WBNA, ABG, LACTIC, IOCAL, GLUO #### [facility] [address] [place] [address] Hospital Internship: Ti Willis MD MCHC (RBC) [Mass/Vol] 32.4 g/dL Normal 28.4-34.8 [facility] Comment on above: Performed By: #### W BK, WBCL, CVHH, WBNA, ABG, LACTIC, IOCAL, GLUO #### [facility] [address] [place] [address] Hospital Internship: Ti Willis MD MCV (RBC) [Entitic vol] 125.1 fL High 82.6-102.9 [facility] Comment on above: Performed By: #### W BK, WBCL, CVHH, WBNA, ABG, LACTIC, IOCAL, GLUO #### [facility] [address] [place] [address] Hospital Internship: Ti Willis MD NRBC Automated 0.0 per 100 WBC Normal 0.0 [facility] Comment on above: Performed By: #### W BK, WBCL, CVHH, WBNA, ABG, LACTIC, IOCAL, GLUO #### [address] [address] Hospital Internship: Ti Willis MD Platelet mean volume (Bld) [Entitic vol] 10.7 fL Normal 8.1-13.5 [facility] Comment on above: Performed By: #### W BK, WBCL, CVHH, WBNA, ABG, LACTIC, IOCAL, GLUO #### [address] [address] Hospital Internship: Ti Willis MD Platelets (Bld) [#/Vol] 366 10*3/uL Normal 138-453 [facility] Comment on above: Performed By: #### W BK, WBCL, CVHH, WBNA, ABG, LACTIC, IOCAL, GLUO #### [address] [address] Hospital Internship: Ti Willis MD RBC (Bld) [#/Vol] 1.95 10*6/uL Low 3.95-5.11 [facility] Comment on above: Performed By: #### W BK, WBCL, CVHH, WBNA, ABG, LACTIC, IOCAL, GLUO #### [address] [address] Hospital Internship: Ti Willis MD WBC (Bld) [#/Vol] 11.2 10*3/uL Normal 3.5-11.3 [facility] Comment on above: Performed By: #### W BK, WBCL, CVHH, WBNA, ABG, LACTIC, IOCAL, GLUO #### [address] [address] Hospital Internship: Ti Willis MD TSH w/reflex to FT4on 2023 Thyroid Stim. Horm. 3.24 uIU/mL Normal 0.30-5.00 [facility] Comment on above: Performed By: #### C DP #### [address] [address] Hospital Internship: Ti Willis MD Basic Metab w/rfx MGon 12-20 Anion gap [Moles/Vol] 10 mmol/L Normal 9-17 [facility] Comment on above: Performed By: #### C DP #### [address] [address] Hospital Internship: Ti Willis MD Calcium [Mass/Vol] 8.0 mg/dL Low 8.6-10.4 [facility] Comment on above: Performed By: #### C DP #### [address] [address] Hospital Internship: Ti Willis MD Chloride [Moles/Vol] 100 mmol/L Normal 98-107 [facility] Comment on above: Performed By: #### C DP #### [address] [address] Hospital Internship: Ti Willis MD CO2 [Moles/Vol] 25 mmol/L Normal 20-31 [facility] Comment on above: Performed By: #### C DP #### [address] [address] Hospital Internship: Ti Willis MD Creatinine [Mass/Vol] 0.7 mg/dL Normal 0.5-0.9 [facility] Comment on above: Performed By: #### C DP #### [address] [address] Hospital Internship: Ti Willis MD GFR/1.73 sq M.predicted among non-blacks MDRD (S/P/Bld) [Vol rate/Area] mL/min/{1.73_m2} Normal >60 [facility] Comment on above: Result Comment: These [...] secretion. Performed By: #### C DP #### [address] [address] Hospital Internship: Ti Willis MD Glucose [Mass/Vol] 104 mg/dL High 70-99 [facility] Comment on above: Performed By: #### C DP #### [address] [address] Hospital Internship: Ti Willis MD Potassium [Moles/Vol] 4.1 mmol/L Normal 3.7-5.3 [facility] Comment on above: Performed By: #### C DP #### [address] [address] Hospital Internship: Ti Willis MD Sodium [Moles/Vol] 135 mmol/L Normal 135-144 [facility] Comment on above: Performed By: #### C DP #### [facility] [address] [place] [address] Hospital Internship: Ti Willis MD Urea nitrogen [Mass/Vol] 21 mg/dL Normal 8-23 [facility] Comment on above: Performed By: #### C DP #### [address] [address] Hospital Internship: Ti Willis MD CBCon 12-20-2023 Erythrocyte distribution width (RBC) [Ratio] 18.5 % High 11.8-14.4 [facility] Comment on above: Performed By: #### C DP #### [address] [address] Hospital Internship: Ti Willis MD Hematocrit (Bld) [Volume fraction] 24.4 % Low 36.3-47.1 [facility] Comment on above: Performed By: #### C DP #### [address] [address] Hospital Internship: Ti Willis MD Hemoglobin (Bld) [Mass/Vol] 8.1 g/dL Low 11.9-15.1 [facility] Comment on above: Performed By: #### C DP #### [address] [address] Hospital Internship: Ti Willis MD MCH (RBC) [Entitic mass] 40.7 pg High 25.2-33.5 [facility] Comment on above: Performed By: #### C DP #### [address] [address] Hospital Internship: Ti Willis MD MCHC (RBC) [Mass/Vol] 33.2 g/dL Normal 28.4-34.8 [facility] Comment on above: Performed By: #### C DP #### [place] [address] Hospital Internship: Ti Willis MD MCV (RBC) [Entitic vol] 122.6 fL High 82.6-102.9 [facility] Comment on above: Performed By: #### C DP #### [address] [address] Hospital Internship: Ti Willis MD NRBC Automated 0.0 per 100 WBC Normal 0.0 [facility] Comment on above: Performed By: #### C DP #### [address] [place] [address] Hospital Internship: Ti Willis MD Platelet mean volume (Bld) [Entitic vol] 10.6 fL Normal 8.1-13.5 [facility] Comment on above: Performed By: #### C DP #### [facility] [address] [place] [address] Hospital Internship: Ti Willis MD Platelets (Bld) [#/Vol] 356 10*3/uL Normal 138-453 [facility] Comment on above: Performed By: #### C DP #### [facility] [employer] [address] [place] [address] Hospital Internship: Ti Willis MD RBC (Bld) [#/Vol] 1.99 10*6/uL Low 3.95-5.11 [facility] Comment on above: Performed By: #### C DP #### [facility] [employer] [address] [place] [address] Hospital Internship: Ti Willis MD WBC (Bld) [#/Vol] 10.3 10*3/uL Normal 3.5-11.3 [facility] Comment on above: Performed By: #### C DP #### [address] [address] Hospital Internship: Ti Willis MD Cult,Urineon 12-19-2023 Cult,Urine Specimen [...] Tobramycin <=1 SUSCEPTIBLE Trimethoprim/Sulfa <=20 SUSCEPTIBLE Susceptible [facility] Comment on above: Performed By: #### C DP #### [facility] [address] [place] [address] Hospital Internship: Ti Willis MD OPERATIVE REPORTon OPERATIVE REPORT [facility] [address] [place] [address] OPERATIVE REPORT PATIENT NAME: JOSEFA CASTILLO : 1940 MED REC NO: [id number] ROOM: [facility]5 ACCOUNT NO: [id number] ADMIT DATE: 12/15/2023 PROVIDER: Aristeo Ace DATE OF PROCEDURE: 12/17/2023 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 POSTOPERATIVE DIAGNOSIS: Failed hardware left proximal femur. PROCEDURE: Conversion of prior hip surgery to left total hip arthroplasty. SURGEON: Aristeo Ace DO [facility] MANAGER: Edgar Middleton MD, PGY-2, MD, PGY-4, and [...] 0 PDS, deep dermal layers with 2-0 [place] (more content not included)... Normal [facility] Arterial Blood Gaseson 12-17 Ellis Test INFORMATION NOT PROVIDED [facility] Comment on above: Performed By: #### W BK, WBCL, CVHH, WBNA, ABG, LACTIC, IOCAL, GLUO #### [address] [address] Hospital Internship: Ti Willis MD Body Temp. 36.0 [facility] Comment on above: Performed By: #### W BK, WBCL, CVHH, WBNA, ABG, LACTIC, IOCAL, GLUO #### [address] [address] Hospital Internship: Ti Willis MD Carboxy Hgb 1.1 % Garrett 0-5 [facility] Comment on above: Result Comment: Reference Range: Non-Smokers 0-2% Average Smoker 2-4% Heavy Smoker <10% Performed By: #### W BK, WBCL, CVHH, WBNA, ABG, LACTIC, IOCAL, GLUO #### [address] [address] Hospital Internship: Ti Willis MD FIO2 60 [facility] Comment on above: Performed By: #### W BK, WBCL, CVHH, WBNA, ABG, LACTIC, IOCAL, GLUO #### [address] [address] Hospital Internship: Ti Willis MD HCO3 (Bld) [Moles/Vol] 23.4 mmol/L Normal 22-27 [facility] Comment on above: Performed By: #### W BK, WBCL, CVHH, WBNA, ABG, LACTIC, IOCAL, GLUO #### [address] [address] Hospital Internship: Ti Willis MD Negative Base Excess 0.3 mmol/L Normal 0.0-2.0 [facility] Comment on above: Performed By: #### W BK, WBCL, CVHH, WBNA, ABG, LACTIC, IOCAL, GLUO #### [address] [address] Hospital Internship: Ti Willis MD Oxygen (Bld) [Partial pressure] 237.0 mm[Hg] High 75-95 [facility] Comment on above: Performed By: #### W BK, WBCL, CVHH, WBNA, ABG, LACTIC, IOCAL, GLUO #### [address] [address] Hospital Internship: Ti Willis MD Oxygen saturation in Blood 98.3 % Normal 94-100 [facility] Comment on above: Performed By: #### W BK, WBCL, CVHH, WBNA, ABG, LACTIC, IOCAL, GLUO #### [address] [address] Hospital Internship: Ti Willis MD pCO2 36.8 mmHg Normal 32-45 [facility] Comment on above: Performed By: #### W BK, WBCL, CVHH, WBNA, ABG, LACTIC, IOCAL, GLUO #### [address] [address] Hospital Internship: Ti Willis MD pH (Bld) 7.418 [pH] Normal 7.350-7.450 [facility] Comment on above: Performed By: #### W BK, WBCL, CVHH, WBNA, ABG, LACTIC, IOCAL, GLUO #### [facility] [address] [place] [address] Hospital Internship: Ti Willis MD CV Hgb/Hcton 12-17-2023 Hematocrit (Bld) [Volume fraction] 35.4 % Low 36.3-47.1 [facility] Comment on above: Performed By: #### W BK, WBCL, CVHH, WBNA, ABG, LACTIC, IOCAL, GLUO #### [facility] [address] [place] [address] Hospital Internship: Ti Willis MD Hemoglobin (Bld) [Mass/Vol] 11.5 g/dL Low 11.9-15.1 [facility] Comment on above: Performed By: #### W BK, WBCL, CVHH, WBNA, ABG, LACTIC, IOCAL, GLUO #### [facility] [address] [place] [address] Hospital Internship: Ti Willis MD Calcium, Ionicon 12-17-2023 Calcium [Moles/Vol] 1.14 mmol/L Normal 1.13-1.33 [facility] Comment on above: Performed By: #### W BK, WBCL, CVHH, WBNA, ABG, LACTIC, IOCAL, GLUO #### [facility] [address] [place] [address] Hospital Internship: Ti Willis MD Chloride - Whole Blon 2023 Chloride [Moles/Vol] 106 mmol/L Normal 98-110 [facility] Comment on above: Performed By: #### W BK, WBCL, CVHH, WBNA, ABG, LACTIC, IOCAL, GLUO #### [facility] [address] [place] [address] [id number] Hospital Internship: Ti Willis MD FLUORO FOR SURGICAL PROCEDUR ESon 12-17-2023 FLUORO FOR SURGICAL PROCEDURES Radiology exam is complete. No Radiologist dictation. Please follow up with ordering provider. Final result Normal [facility] Glucose,Whole Bloodon 2023 Glucose [Mass/Vol] 101 mg/dL Normal 65-105 [facility] Comment on above: Performed By: #### W BK, WBCL, CVHH, WBNA, ABG, LACTIC, IOCAL, GLUO #### [facility] [address] [place] [address] [id number] Hospital Internship: Ti Willis MD Lactic Acidon 12-17-2023 Lactic Acid,Whole Bl 2.2 mmol/L High 0.7-2.1 [facility] Comment on above: Performed By: #### W BK, WBCL, CVHH, WBNA, ABG, LACTIC, IOCAL, GLUO #### [facility] [employer] [address] [place] [address]2008 Hospital Internship: Ti Willis MD Potassium - Whole Blon 12-17 Potassium [Moles/Vol] 3.3 mmol/L Low 3.6-5.0 [facility] Comment on above: Performed By: #### W BK, WBCL, CVHH, WBNA, ABG, LACTIC, IOCAL, GLUO #### [facility] [employer] [address] [place] [address] [id number] Hospital Internship: Ti Willis MD Sodium - Whole Bloodon 12-17 Sodium [Moles/Vol] 137 mmol/L Normal 136-145 [facility] Comment on above: Performed By: #### W BK, WBCL, CVHH, WBNA, ABG, LACTIC, IOCAL, GLUO #### [facility] [address] [place] [address] [id number] Hospital Internship: Ti Willis MD Type + Screenon 12-17-2023 Type + Screen Sample Expiration 12/20/2023,2359 Arm Band Number [id number] ABO/Rh(D) A POSITIVE Antibody Screen NEGATIVE Unit Number [id number] Blood Component Type Leukocyte Reduced Red Cell Unit Division 00 Status of Unit REL FROM ALLOC Transfusion Status OK TO TRANSFUSE Crossmatch Result COMPATIBLE Unit Number [id number] Blood Component Type Leukocyte Reduced Red Cell Unit Division 00 Status of Unit REL FROM ALLOC Transfusion Status OK TO TRANSFUSE Crossmatch Result COMPATIBLE Normal [facility] Comment on above: Performed By: #### C DP #### [address] [id number] Hospital Internship: Ti Willis MD XR HIP 2-3 VW [...] Magana IV, MD 12/17/23 Final result Normal [facility] CBC with Diffon 12-16-2023 Abs. Basophil 0.05 k/uL Normal 0.00-0.20 [facility] Comment on above: Performed By: #### C DP #### [address] [address] Hospital Internship: Ti Willis MD Abs.Imm.Granulocyte 0.00 k/uL Normal 0.00-0.30 [facility] Comment on above: Performed By: #### C DP #### [address] [place] [address] Hospital Internship: Ti Willis MD Abs.Neutrophil (Seg) 2.52 k/uL Normal 1.50-8.10 [facility] Comment on above: Performed By: #### C DP #### [address] [address] Hospital Internship: Ti Willis MD Basophils/100 WBC (Bld) 1 % Normal 0-2 [facility] Comment on above: Performed By: #### C DP #### [address] [address] Hospital Internship: Ti Willis MD Eosinophils (Bld) [#/Vol] 0.09 10*3/uL Normal 0.00-0.44 [facility] Comment on above: Performed By: #### C DP #### [address] [address] Hospital Internship: Ti Willis MD Eosinophils/100 WBC (Bld) 2 % Normal 1-4 [facility] Comment on above: Performed By: #### C DP #### [address] [address] Hospital Internship: Ti Willis MD Immature granulocytes/100 WBC (Bld) 0 % Normal 0 [facility] Comment on above: Performed By: #### C DP #### [address] [address] Hospital Internship: Ti Willis MD Lymphocytes (Bld) [#/Vol] 1.43 10*3/uL Normal 1.10-3.70 [facility] Comment on above: Performed By: #### C DP #### [address] [address] Hospital Internship: Ti Willis MD Lymphocytes/100 WBC (Bld) 31 % Normal 24-43 [facility] Comment on above: Performed By: #### C DP #### [address] [address] Hospital Internship: Ti Willis MD Monocytes (Bld) [#/Vol] 0.51 10*3/uL Normal 0.10-1.20 [facility] Comment on above: Performed By: #### C DP #### [address] [address] Hospital Internship: Ti Willis MD Monocytes/100 WBC (Bld) 11 % Normal 3-12 [facility] Comment on above: Performed By: #### C DP #### [address] [address] Hospital Internship: Ti Willis MD Morphology Juni (Bld) [Interp] ANISOCYTOSIS PRESENT Normal [facility] Comment on above: Result Comment: MACR OCYTOSIS PRESENT Performed By: #### C DP #### [address] [address] Hospital Internship: Ti Willis MD Neutrophil (Seg) 55 % Normal 36-65 [facility] Comment on above: Performed By: #### C DP #### [address] [address] Hospital Internship: Ti Willis MD Erythrocyte distribution width (RBC) [Ratio] 19.2 % High 11.8-14.4 [facility] Comment on above: Performed By: #### C DP #### [address] [address] Hospital Internship: Ti Willis MD Hematocrit (Bld) [Volume fraction] 36.2 % Low 36.3-47.1 [facility] Comment on above: Performed By: #### C DP #### [address] [address] Hospital Internship: Ti Willis MD Hemoglobin (Bld) [Mass/Vol] 11.9 g/dL Normal 11.9-15.1 [facility] Comment on above: Performed By: #### C DP #### [address] [address] Hospital Internship: Ti Willis MD MCH (RBC) [Entitic mass] 39.5 pg High 25.2-33.5 [facility] Comment on above: Performed By: #### C DP #### [address] [address] Hospital Internship: Ti Willis MD MCHC (RBC) [Mass/Vol] 32.9 g/dL Normal 28.4-34.8 [facility] Comment on above: Performed By: #### C DP #### [place] [address] Hospital Internship: Ti Willis MD MCV (RBC) [Entitic vol] 120.3 fL High 82.6-102.9 [facility] Comment on above: Performed By: #### C DP #### [address] [address] Hospital Internship: Ti Willis MD NRBC Automated 0.0 per 100 WBC Normal 0.0 [facility] Comment on above: Performed By: #### C DP #### [place] [address] Hospital Internship: Ti Willis MD Platelet mean volume (Bld) [Entitic vol] 10.1 fL Normal 8.1-13.5 [facility] Comment on above: Performed By: #### C DP #### [address] [address] Hospital Internship: Ti Willis MD Platelets (Bld) [#/Vol] 361 10*3/uL Normal 138-453 [facility] Comment on above: Performed By: #### C DP #### [address] [address] Hospital Internship: Ti Willis MD RBC (Bld) [#/Vol] 3.01 10*6/uL Low 3.95-5.11 [facility] Comment on above: Performed By: #### C DP #### [address] [address] Hospital Internship: Ti Willis MD WBC (Bld) [#/Vol] 4.6 10*3/uL Normal 3.5-11.3 [facility] Comment on above: Performed By: #### C DP #### [address] [address] Hospital Internship: Ti Willis MD Basic Metabolic Profon 12-15 Anion gap [Moles/Vol] 12 mmol/L Normal 9-17 [facility] Comment on above: Performed By: #### C DP #### [address] [address] Hospital Internship: Ti Willis MD Calcium [Mass/Vol] 9.0 mg/dL Normal 8.6-10.4 [facility] Comment on above: Performed By: #### C DP #### [address] [address] Hospital Internship: Ti Willis MD Chloride [Moles/Vol] 100 mmol/L Normal 98-107 [facility] Comment on above: Performed By: #### C DP #### [address] [address] Hospital Internship: Ti Willis MD CO2 [Moles/Vol] 24 mmol/L Normal 20-31 [facility] Comment on above: Performed By: #### C DP #### [address] [address] Hospital Internship: Ti Willis MD Creatinine [Mass/Vol] 0.6 mg/dL Normal 0.5-0.9 [facility] Comment on above: Performed By: #### C DP #### [address] [address] Hospital Internship: Ti Willis MD GFR/1.73 sq M.predicted among non-blacks MDRD (S/P/Bld) [Vol rate/Area] mL/min/{1.73_m2} Normal >60 [facility] Comment on above: Result Comment: These [...] secretion. Performed By: #### C DP #### [facility] [employer] [address] [place] [address] Hospital Internship: Ti Willis MD Glucose [Mass/Vol] 88 mg/dL Normal 70-99 [facility] Comment on above: Performed By: #### C DP #### [address] [address] Hospital Internship: Ti Willis MD Potassium [Moles/Vol] 4.0 mmol/L Normal 3.7-5.3 [facility] Comment on above: Performed By: #### C DP #### [facility] [employer] [address] [place] [address] Hospital Internship: Ti Willis MD Sodium [Moles/Vol] 136 mmol/L Normal 135-144 [facility] Comment on above: Performed By: #### C DP #### [address] [address] Hospital Internship: Ti Willis MD Urea nitrogen [Mass/Vol] 10 mg/dL Normal 8-23 [facility] Comment on above: Performed By: #### C DP #### [address] [address] Hospital Internship: Ti Willis MD CBC with Diffon 12-15-2023 Abs. Basophil 0.12 k/uL Normal 0.0-0.2 [facility] Comment on above: Performed By: #### C DP #### [place] [address] Hospital Internship: Ti Willis MD Abs.Imm.Granulocyte 0.00 k/uL Normal 0.00-0.30 [facility] Comment on above: Performed By: #### C DP #### [place] [address] Hospital Internship: Ti Willis MD Abs.Neutrophil (Seg) 3.85 k/uL Normal 1.8-7.7 [facility] Comment on above: Performed By: #### C DP #### [address] [address] Hospital Internship: Ti Willis MD Basophils/100 WBC (Bld) 2 % Normal 0-2 [facility] Comment on above: Performed By: #### C DP #### [address] [address] Hospital Internship: Ti Willis MD Eosinophils (Bld) [#/Vol] 0.12 10*3/uL Normal 0.0-0.4 [facility] Comment on above: Performed By: #### C DP #### [address] [address] Hospital Internship: Ti Willis MD Eosinophils/100 WBC (Bld) 2 % Normal 1-4 [facility] Comment on above: Performed By: #### C DP #### [address] [address] Hospital Internship: Ti Willis MD Immature granulocytes/100 WBC (Bld) 0 % Normal 0 [facility] Comment on above: Performed By: #### C DP #### [address] [address] Hospital Internship: Ti Willis MD Lymphocytes (Bld) [#/Vol] 1.49 10*3/uL Normal 1.0-4.8 [facility] Comment on above: Performed By: #### C DP #### [address] [address] Hospital Internship: Ti Willis MD Lymphocytes/100 WBC (Bld) 24 % Normal 24-44 [facility] Comment on above: Performed By: #### C DP #### [address] [address] Hospital Internship: Ti Willis MD Monocytes (Bld) [#/Vol] 0.62 10*3/uL Normal 0.1-0.8 [facility] Comment on above: Performed By: #### C DP #### [address] [address] Hospital Internship: Ti Willis MD Monocytes/100 WBC (Bld) 10 % High 1-7 [facility] Comment on above: Performed By: #### C DP #### [address] [address] Hospital Internship: Ti Willis MD Morphology Juni (Bld) [Interp] ANISOCYTOSIS PRESENT Normal [facility] Comment on above: Result Comment: MACR OCYTOSIS PRESENT Performed By: #### C DP #### [address] [address] Hospital Internship: Ti Willis MD Neutrophil (Seg) 62 % Normal 36-66 [facility] Comment on above: Performed By: #### C DP #### [address] [address] Hospital Internship: Ti Willis MD Erythrocyte distribution width (RBC) [Ratio] 18.8 % High 11.8-14.4 [facility] Comment on above: Performed By: #### C DP #### [place] [address] Hospital Internship: Ti Willis MD Hematocrit (Bld) [Volume fraction] 41.1 % Normal 36.3-47.1 [facility] Comment on above: Performed By: #### C DP #### [address] [address] Hospital Internship: Ti Willis MD Hemoglobin (Bld) [Mass/Vol] 13.9 g/dL Normal 11.9-15.1 [facility] Comment on above: Performed By: #### C DP #### [address] [address] Hospital Internship: Ti Willis MD MCH (RBC) [Entitic mass] 40.5 pg High 25.2-33.5 [facility] Comment on above: Performed By: #### C DP #### [address] [address] Hospital Internship: Ti Willis MD MCHC (RBC) [Mass/Vol] 33.8 g/dL Normal 28.4-34.8 [facility] Comment on above: Performed By: #### C DP #### [address] [address] Hospital Internship: Ti Willis MD MCV (RBC) [Entitic vol] 119.8 fL High 82.6-102.9 [facility] Comment on above: Performed By: #### C DP #### [address] [address] Hospital Internship: Ti Willis MD NRBC Automated 0.0 per 100 WBC Normal 0.0 [facility] Comment on above: Performed By: #### C DP #### [address] [address] Hospital Internship: Ti Willis MD Platelet mean volume (Bld) [Entitic vol] 9.7 fL Normal 8.1-13.5 [facility] Comment on above: Performed By: #### C DP #### [address] [address] Hospital Internship: Ti Willis MD Platelets (Bld) [#/Vol] 426 10*3/uL Normal 138-453 [facility] Comment on above: Performed By: #### C DP #### [address] [address] Hospital Internship: Ti Willis MD RBC (Bld) [#/Vol] 3.43 10*6/uL Low 3.95-5.11 [facility] Comment on above: Performed By: #### C DP #### [address] [address] Hospital Internship: Ti Willis MD WBC (Bld) [#/Vol] 6.2 10*3/uL Normal 3.5-11.3 [facility] Comment on above: Performed By: #### C DP #### [address] [address] Hospital Internship: Ti Willis MD PTon 12-15-2023 INR Coag (PPP) [Relative time] 1.1 {INR} Normal [facility] Comment on above: Result Comment: Therapeutic Range: Moderate Anticoagulant Intensity: INR = 2.0-3.0 High Anticoagulant Intensity: INR = 2.5-3.5 Performed By: #### C DP #### [employer] [facility] [place] [address] Hospital Internship: Ti Willis MD PT Coag (PPP) [Time] 13.6 s Normal 11.7-14.9 [facility] Comment on above: Performed By: #### C DP #### [employer] [address] [place] [address] Hospital Internship: Ti Willis MD Vitamin D 25 OHon 12-15-2023 Vitamin D 25 [place] 14.1 ng/mL Low >29.9 [facility] Comment on above: Result Comment: Reference Range: Vitamin D status Range Deficiency <20 ng/mL Mild Deficiency 20-30 ng/mL Sufficiency 30-100 ng/mL Toxicity >100 ng/mL Performed By: #### C DP #### [facility] [employer] [address] [place] [address] Hospital Internship: Ti Willis MD XR FEMUR LEFT (MIN [...] [place] Colin MD 12/15/23 Final result Normal [facility] CBC W Auto Differential pane l (Bld)on 07-29-2023 Basophils (Bld) [#/Vol] 0.07 10*3/uL Normal <0.11 [facility] Comment on above: Order Comment: Speci men Type: BLOOD SPECIMEN Ordering Facility: [facility] [place] Address: [address] [address] Performed By: #### 5 7021-8 #### [facility] CLIA [id number] [address] [place] [address] 95776 Basophils/100 WBC (Bld) 0.9 % Normal [facility] Comment on above: Order Comment: Speci men Type: BLOOD SPECIMEN Ordering Facility: [facility] Address: [address] [address] Performed By: #### 5 7021-8 #### [facility] CLIA [id number] [address] [place] [address] 11563 Differential cell count method Nom (Bld) Auto Normal [facility] Comment on above: Order Comment: Speci men Type: BLOOD SPECIMEN Ordering Facility: [facility] Address: [address] [address] Performed By: #### 5 7021-8 #### [facility] CLIA [id number] [address] [place] [address] 08950 Eosinophils (Bld) [#/Vol] 0.12 10*3/uL Normal <0.46 [facility] Comment on above: Order Comment: Speci men Type: BLOOD SPECIMEN Ordering Facility: [facility] Address: [address] [address] Performed By: #### 5 7021-8 #### [facility] CLIA [id number] [address] [place] [address] 11351 Eosinophils/100 WBC (Bld) 1.6 % Normal [facility] Comment on above: Order Comment: Speci men Type: BLOOD SPECIMEN Ordering Facility: [facility] Address: [address] [address] Performed By: #### 5 7021-8 #### [facility] CLIA [id number] [address] [place] [address] 63101 Erythrocyte distribution width (RBC) [Ratio] 14.0 % Normal 11.5-15.0 [facility] Comment on above: Order Comment: Speci men Type: BLOOD SPECIMEN Ordering Facility: [facility] Address: [address] [address] Performed By: #### 5 7021-8 #### [facility] CLIA [id number] [address] [place] [address] 30260 Hematocrit (Bld) [Volume fraction] 41.4 % Normal 36.0-46.0 [facility] Comment on above: Order Comment: Speci men Type: BLOOD SPECIMEN Ordering Facility: [facility] Address: [address] [place] [address] Performed By: #### 5 7021-8 #### [facility] CLIA [id number] [address] [place] [address] 27346 Hemoglobin (Bld) [Mass/Vol] 13.6 g/dL Normal 11.5-15.5 [facility] Comment on above: Order Comment: Speci men Type: BLOOD SPECIMEN Ordering Facility: [facility] Address: [address] [place] [address] Performed By: #### 5 7021-8 #### [facility] CLIA [id number] [address] [place] [address] 53853 Immature granulocytes (Bld) [#/Vol] 0.03 10*3/uL Normal <0.10 [facility] Comment on above: Order Comment: Speci men Type: BLOOD SPECIMEN Ordering Facility: [facility] Address: [address] [place] [address] Performed By: #### 5 7021-8 #### [facility] CLIA [id number] [address] [place] [address] 27006 Immature granulocytes/100 WBC (Bld) 0.4 % Normal [facility] Comment on above: Order Comment: Speci men Type: BLOOD SPECIMEN Ordering Facility: [facility] Address: [address] [address] Performed By: #### 5 7021-8 #### [facility] CLIA [id number] [address] [place] [address] 39704 Lymphocytes (Bld) [#/Vol] 1.84 10*3/uL Normal 1.00-4.00 [facility] Comment on above: Order Comment: Speci men Type: BLOOD SPECIMEN Ordering Facility: [facility] Address: [address] [address] Performed By: #### 5 7021-8 #### [facility] CLIA [id number] [address] [place] [address] 01609 Lymphocytes/100 WBC (Bld) 24.6 % Normal [facility] Comment on above: Order Comment: Speci men Type: BLOOD SPECIMEN Ordering Facility: [facility] Address: [address] [address] Performed By: #### 5 7021-8 #### [facility] CLIA [id number] [address] [place] [address] 01531 MCH (RBC) [Entitic mass] 38.1 pg High 26.0-34.0 [facility] Comment on above: Order Comment: Speci men Type: BLOOD SPECIMEN Ordering Facility: [facility] Address: [address] [address] Performed By: #### 5 7021-8 #### [facility] CLIA [id number] [address] [place] [address] 21033 MCHC (RBC) [Mass/Vol] 32.9 g/dL Normal 30.5-36.0 [facility] Comment on above: Order Comment: Speci men Type: BLOOD SPECIMEN Ordering Facility: [facility] Address: [address] [address] Performed By: #### 5 7021-8 #### [facility] CLIA [id number] [address] [place] [address] 81613 MCV (RBC) [Entitic vol] 116.0 fL High 80.0-100.0 [facility] Comment on above: Order Comment: Speci men Type: BLOOD SPECIMEN Ordering Facility: [facility] Address: [address] [address] Performed By: #### 5 7021-8 #### [facility] CLIA [id number] [address] [place] [address] 79461 Monocytes (Bld) [#/Vol] 0.64 10*3/uL Normal <0.87 [facility] Comment on above: Order Comment: Speci men Type: BLOOD SPECIMEN Ordering Facility: [facility] Address: [address] [address] Performed By: #### 5 7021-8 #### [facility] CLIA [id number] [address] [place] [address] 23830 Monocytes/100 WBC (Bld) 8.6 % Normal [facility] Comment on above: Order Comment: Speci men Type: BLOOD SPECIMEN Ordering Facility: [facility] Address: [address] [address] Performed By: #### 5 7021-8 #### [facility] CLIA [id number] [address] [place] [address] 94826 Neutrophils (Bld) [#/Vol] 4.77 10*3/uL Normal 1.45-7.50 [facility] Comment on above: Order Comment: Speci men Type: BLOOD SPECIMEN Ordering Facility: [facility] Address: [address] Performed By: #### 5 7021-8 #### [facility] CLIA [id number] [address] [place] [address] 95951 Neutrophils/100 WBC (Bld) 63.9 % Normal [facility] Comment on above: Order Comment: Speci men Type: BLOOD SPECIMEN Ordering Facility: [facility] Address: [address] [address] Performed By: #### 5 7021-8 #### [facility] CLIA [id number] [address] [place] [address] Nucleated RBC (Bld) [#/Vol] 10*3/uL Normal <0.01 [facility] Comment on above: Order Comment: Speci men Type: BLOOD SPECIMEN Ordering Facility: [facility] Address: [address] [address] Performed By: #### 5 7021-8 #### [facility] CLIA [id number] [address] [place] [address] 73513 Nucleated RBC/100 WBC (Bld) [Ratio] 0.0 /100 WBC Normal [facility] Comment on above: Order Comment: Speci men Type: BLOOD SPECIMEN Ordering Facility: [facility] Address: [address] [place] [address] Performed By: #### 5 7021-8 #### [facility] CLIA [id number] [address] [place] [address] 28055 Platelet mean volume (Bld) [Entitic vol] 9.8 fL Normal 9.0-12.7 [facility] Comment on above: Order Comment: Speci men Type: BLOOD SPECIMEN Ordering Facility: [facility] Address: [address] [place] [address] Performed By: #### 5 7021-8 #### [facility] CLIA [id number] [address] [place] [address] 85599 Platelets (Bld) [#/Vol] 591 10*3/uL High 150-400 [facility] Comment on above: Order Comment: Speci men Type: BLOOD SPECIMEN Ordering Facility: [facility] Address: [address] [address] Performed By: #### 5 7021-8 #### [facility] CLIA [id number] [address] [place] [address] 77706 RBC (Bld) [#/Vol] 3.57 10*6/uL Low 3.90-5.20 [facility] Comment on above: Order Comment: Speci men Type: BLOOD SPECIMEN Ordering Facility: [facility] Address: [place] [address] Performed By: #### 5 7021-8 #### [facility] [place] [id number] [address] [place] [address] 38106 WBC (Bld) [#/Vol] 7.47 10*3/uL Normal 3.70-11.00 [facility] Comment on above: Order Comment: Speci men Type: BLOOD SPECIMEN Ordering Facility: [facility] Address: [place] [address] Performed By: #### 5 7021-8 #### [facility] CLIA [id number] [address] [place] [address] [facility]23 [facility] ([place] JOSEFA CASTILLO ([id number]) 1940 F Date Time Provider Department 07/29/23 10:30 AM MARTHA NURSE JACK[facility] DENT During your visit today, we recorded the following information about you: Temperature Pulse Respiration Blood pressure 97 degrees 63/minute 16/minute 175/71 Weight 57.1 kg Kiera Rey Ma 07/29/2023 10:27 AM Signed Patient Identification confirmed: yes. Injection given and documented on DEC per provider order. Kiera Rey Ma Referring Provider: ROD ROMAN [[id number]] Allergies As of Date: 07/29/2023 Noted Allergy [...] vitamin B12 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] Order(s):BCN NURSING COMMUNICATION [[id number]] Order #: [id number]: 1 STANDING BCN NURSING COMMUNICATION [[id number]] Order #: [id number]: 1 STANDING BCN NURSING COMMUNICATION [[id number]] Order #: [id number]: 1 STANDING BCN NURSING COMMUNICATION [[id number]] Order #: [id number]: 1 STANDING BCN NURSING COMMUNICATION [[id number]] Order #: [id number]: 1 STANDING [] cyanocobalamin 1,000 mcg injectionDisp: [...] deficie*09/02/2018 Visit Notes: >> Kiera Rey Ma Sharon Jul 29, 2023 10:26 AM Status: Signed Patient Identification confirmed: yes. Injection given and documented on DEC per provider order. Kiera Rey Ma Prescriptions ordered this encounter Disp Refills Start End CYANOCOBALAMIN ( (more content not included)... Normal [facility] CNOVSPon 07-29-2023 CNOVSP Visit (SP) Office ([place]) CASTILLO,JOSEFA ([id number]) 1940 F Date Time Provider Department 07/29/23 10:15 AM ROD ROMAN During your visit today, we recorded the following information about you: Temperature Pulse Respiration Blood pressure 97.3 degrees 63/minute 16/minute 175/71 Weight 57 kg Rod Roman MD 08/01/2023 3:49 PM Signed NAME: Josefa Castillo CLINIC NO.: [id number] DATE OF SERVICE: July 29, 2023 (Carlos) [...] found to have thrombocytosis while living in [place]. She has been on various dosing through [...] month 3. 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 Labs every 8 weeks, CBC, CMP Continue current regimen of Hydrea 500 mg daily Wednesday - Wednesday but increase to 2 tablets (1000 mg) on Saturdays and Sundays) B12 Shot today and every 8 weeks. RTC in 16 weeks HPI: Updated Visit, July 29, 2023: Right mandaeism was not a melanoma - basal cell. Labs reviewed and adjusted hydrea on weekends Otherwise is doing very well. Updated Visit, April 08, 2023: Says she's not doing well. 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 Continues B12 shots every 8 weeks [...] the left side of head over the mandaeism and into the jaw. No vision changes associated with pain. Intermittent and dull and pounding. Right mandaeism at the corner of her eye lid [...] with hydrea (more content not included)... Normal [facility] Comprehensive metabolic 2000 panelon 07-29-2023 Albumin [Mass/Vol] 4.4 g/dL Normal 3.9-4.9 [facility] Comment on above: Order Comment: [place] pires Type: BLOOD SPECIMEN Ordering Facility: [facility] Address: [address] [place] [address] Performed By: #### 2 4323-8, 2532-0 #### [facility] CLIA [id number] [address] [place] [address] 79708 ALP [Catalytic activity/Vol] 60 U/L Normal 34-123 [facility] Comment on above: Order Comment: [place] Type: BLOOD SPECIMEN Ordering Facility: [facility] Address: [address] [place] [address] Performed By: #### 2 4328, 2531-0 #### [facility] CLIA [id number] [address] [place] [address] ALT [Catalytic activity/Vol] 11 U/L Normal 7-38 [facility] Comment on above: Order Comment: Speci men Type: BLOOD SPECIMEN Ordering Facility: [facility] Address: [address] [place] [address] Performed By: #### 2 4328, 2531-0 #### [facility] CLIA [id number] [address] [place] [address] 73360 Anion gap [Moles/Vol] 9 mmol/L Normal 9-18 [facility] Comment on above: Order Comment: Speci men Type: BLOOD SPECIMEN Ordering Facility: [facility] Address: [address] [place] [address] Performed By: #### 2 8, 2531-0 #### [facility] CLIA [id number] [address] [place] [address] 79135 AST [Catalytic activity/Vol] 16 U/L Normal 13-35 [facility] Comment on above: Order Comment: Speci men Type: BLOOD SPECIMEN Ordering Facility: [facility] Address: [address] [place] [address] Performed By: #### 2 8, 2531-0 #### [facility] CLIA [id number] [address] [place] [address] 64046 Bilirubin [Mass/Vol] 0.5 mg/dL Normal 0.2-1.3 [facility] Comment on above: Order Comment: Speci men Type: BLOOD SPECIMEN Ordering Facility: [facility] Address: [address] [place] [address] Performed By: #### 2 8, 2531-0 #### [facility] CLIA [id number] [address] [place] [address] 29528 Calcium [Mass/Vol] 9.4 mg/dL Normal 8.5-10.2 [facility] Comment on above: Order Comment: Speci men Type: BLOOD SPECIMEN Ordering Facility: [facility] Address: [address] [address] Performed By: #### 2 43238, 2531-0 #### [facility] CLIA [id number] [address] [place] [address] 35144 Chloride [Moles/Vol] 104 mmol/L Normal 97-105 [facility] Comment on above: Order Comment: Speci men Type: BLOOD SPECIMEN Ordering Facility: [facility] Address: [address] [address] Performed By: #### 2 4328, 2531-0 #### [facility] CLIA [id number] [address] [place] [address] 53345 CO2 [Moles/Vol] 27 mmol/L Normal 22-30 [facility] Comment on above: Order Comment: Speci men Type: BLOOD SPECIMEN Ordering Facility: [facility] Address: [address] [address] Performed By: #### 2 4328, 2531-0 #### [facility] CLIA [id number] [address] [place] [address] 84879 Creatinine [Mass/Vol] 1.24 mg/dL High 0.58-0.96 [facility] Comment on above: Order Comment: Speci men Type: BLOOD SPECIMEN Ordering Facility: [facility] Address: [address] [address] Performed By: #### 2 4328, 2531-0 #### [facility] CLIA [id number] [address] [place] [address] 02974 Creatinine and Glomerular filtration rate.predicted panel (S/P/Bld) 43 mL/min/1.73m??? Low >=60 [facility] Comment on above: Order Comment: Speci men Type: BLOOD SPECIMEN Ordering Facility: [facility] Address: [address] [place] [address] Result Comment: Esmer mated Glomerular Filtration Rate [...] actual GFR. Performed By: #### 2 43238, 2531-0 #### [facility] CLIA [id number] [address] [place] [address] 57398 Glucose [Mass/Vol] 114 mg/dL High 74-99 [facility] Comment on above: Order Comment: [place] pires Type: BLOOD SPECIMEN Ordering Facility: [facility] Address: [address] [place] [address] Result Comment: The [place] [employer] (ADA) provides guidance for cutoff [...] Standards of Medical Care in Diabetes 2016, [place] [employer]. Diabetes Care. 2016.39(Suppl 1). Performed By: #### 2 4328, #### [facility] CLIA [id number] [address] [place] [address] 54815 Potassium [Moles/Vol] 5.0 mmol/L Normal 3.7-5.1 [facility] Comment on above: Order Comment: [place] pires Type: BLOOD SPECIMEN Ordering Facility: [facility] Address: [address] [place] [address] Performed By: #### 2 43238, 2531-0 #### [facility] CLIA [id number] [address] [place] [address] 27117 Protein [Mass/Vol] 6.4 g/dL Normal 6.3-8.0 [facility] Comment on above: Order Comment: Speci men Type: BLOOD SPECIMEN Ordering Facility: [facility] Address: [address] [place] [address] Performed By: #### 2 4323-8, 2531-0 #### [facility] CLIA [id number] [address] [place] [address] 36908 Sodium [Moles/Vol] 140 mmol/L Normal 136-144 [facility] Comment on above: Order Comment: Speci men Type: BLOOD SPECIMEN Ordering Facility: [facility] Address: [address] [place] [address] Performed By: #### 2 4328, 2531-0 #### [facility] CLIA [id number] [address] [place], [place] [address] Urea nitrogen [Mass/Vol] 18 mg/dL Normal 7-21 [facility] Comment on above: Order Comment: Speci men Type: BLOOD SPECIMEN Ordering Facility: [facility] Address: [address] [place] [address] Performed By: #### 2 4328, 0 #### [facility] CLIA [id number] [address] [place] [address] 35935 [facility] 07-29-2023 LDH [Catalytic activity/Vol] 211 U/L Normal 135-214 [facility] Comment on above: Order Comment: Speci men Type: BLOOD SPECIMEN Ordering Facility: [facility] Address: [address] [place] [address] Result Comment: Hemo lysis present. The origin [...] Performed By: #### 2 4323-8, 2531-0 #### [facility] CLIA [id number] [address] [place] [address] 93034 CBC W Auto Differential pane l (Bld)on 04-08-2023 Basophils (Bld) [#/Vol] 0.05 10*3/uL Normal <0.11 [facility] Comment on above: Order Comment: Speci men Type: BLOOD SPECIMEN Ordering Facility: [facility] Address: [address] [place] [address] Performed By: #### 5 7021-8 #### [facility] CLIA [id number] [address] [place] [address] 82364 Basophils/100 WBC (Bld) 0.7 % Normal [facility] Comment on above: Order Comment: Speci men Type: BLOOD SPECIMEN Ordering Facility: [facility] Address: [address] [place] [address] Performed By: #### 5 7021-8 #### [facility] CLIA [id number] [address] [place] [address] 79197 Differential cell count method Nom (Bld) Auto Normal [facility] Comment on above: Order Comment: Speci men Type: BLOOD SPECIMEN Ordering Facility: [facility] Address: [address] [place] [address] Performed By: #### 5 7021-8 #### [facility] CLIA [id number] [address] [place] [address] 92803 Eosinophils (Bld) [#/Vol] 0.10 10*3/uL Normal <0.46 [facility] Comment on above: Order Comment: Speci men Type: BLOOD SPECIMEN Ordering Facility: [facility] Address: [address] [place] [address] Performed By: #### 5 7021-8 #### [facility] CLIA [id number] [address] [place] [address] 19693 Eosinophils/100 WBC (Bld) 1.5 % Normal [facility] Comment on above: Order Comment: Speci men Type: BLOOD SPECIMEN Ordering Facility: [facility] Address: [address] [address] Performed By: #### 5 7021-8 #### [facility] CLIA [id number] [address] [place] [address] 41668 Erythrocyte distribution width (RBC) [Ratio] 13.5 % Normal 11.5-15.0 [facility] Comment on above: Order Comment: Speci men Type: BLOOD SPECIMEN Ordering Facility: [facility] Address: [address] [address] Performed By: #### 5 7021-8 #### [facility] CLIA [id number] [address] [place] [address] 07131 Hematocrit (Bld) [Volume fraction] 40.3 % Normal 36.0-46.0 [facility] Comment on above: Order Comment: Speci men Type: BLOOD SPECIMEN Ordering Facility: [facility] Address: [address] [address] Performed By: #### 5 7021-8 #### [facility] CLIA [id number] [address] [place] [address] 56525 Hemoglobin (Bld) [Mass/Vol] 13.4 g/dL Normal 11.5-15.5 [facility] Comment on above: Order Comment: Speci men Type: BLOOD SPECIMEN Ordering Facility: [facility] Address: [address] [address] Performed By: #### 5 7021-8 #### [facility] CLIA [id number] [address] [place] [address] 12136 Immature granulocytes (Bld) [#/Vol] 10*3/uL Normal <0.10 [facility] Comment on above: Order Comment: Speci men Type: BLOOD SPECIMEN Ordering Facility: [facility] Address: [address] [address] Performed By: #### 5 7021-8 #### [facility] CLIA [id number] [address] [place] [address] 67893 Immature granulocytes/100 WBC (Bld) 0.3 % Normal [facility] Comment on above: Order Comment: Speci men Type: BLOOD SPECIMEN Ordering Facility: [facility] Address: [address] Performed By: #### 5 7021-8 #### [facility] CLIA [id number] [address] [place] [address] 87477 Lymphocytes (Bld) [#/Vol] 1.82 10*3/uL Normal 1.00-4.00 [facility] Comment on above: Order Comment: Speci men Type: BLOOD SPECIMEN Ordering Facility: [facility] Address: [address] [address] Performed By: #### 5 7021-8 #### [facility] CLIA [id number] [address] [place] [address] 26396 Lymphocytes/100 WBC (Bld) 26.7 % Normal [facility] Comment on above: Order Comment: Speci men Type: BLOOD SPECIMEN Ordering Facility: [facility] Address: [address] Performed By: #### 5 7021-8 #### [facility] CLIA [id number] [address] [place] [address] 33309 MCH (RBC) [Entitic mass] 40.1 pg High 26.0-34.0 [facility] Comment on above: Order Comment: Speci men Type: BLOOD SPECIMEN Ordering Facility: [facility] Address: [address] Performed By: #### 5 7021-8 #### [facility] CLIA [id number] [address] [place] [address] 90941 MCHC (RBC) [Mass/Vol] 33.3 g/dL Normal 30.5-36.0 [facility] Comment on above: Order Comment: Speci men Type: BLOOD SPECIMEN Ordering Facility: [facility] Address: [address] Performed By: #### 5 7021-8 #### [facility] CLIA [id number] [address] [place] [address] 96880 MCV (RBC) [Entitic vol] 120.7 fL High 80.0-100.0 [facility] Comment on above: Order Comment: Speci men Type: BLOOD SPECIMEN Ordering Facility: [facility] Address: [address] [address] Performed By: #### 5 7021-8 #### [facility] CLIA [id number] [address] [place] [address] 54925 Monocytes (Bld) [#/Vol] 0.56 10*3/uL Normal <0.87 [facility] Comment on above: Order Comment: Speci men Type: BLOOD SPECIMEN Ordering Facility: [facility] Address: [address] [place] [address] Performed By: #### 5 7021-8 #### [facility] CLIA [id number] [address] [place] [address] 82614 Monocytes/100 WBC (Bld) 8.2 % Normal [facility] Comment on above: Order Comment: Speci men Type: BLOOD SPECIMEN Ordering Facility: [facility] Address: [address] [place] [address] Performed By: #### 5 7021-8 #### [facility] CLIA [id number] [address] [place] [address] 67992 Neutrophils (Bld) [#/Vol] 4.27 10*3/uL Normal 1.45-7.50 [facility] Comment on above: Order Comment: Speci men Type: BLOOD SPECIMEN Ordering Facility: [facility] Address: [address] [address] Performed By: #### 5 7021-8 #### [facility] CLIA [id number] [address] [place] [address] 76969 Neutrophils/100 WBC (Bld) 62.6 % Normal [facility] Comment on above: Order Comment: Speci men Type: BLOOD SPECIMEN Ordering Facility: [facility] Address: [address] [address] Performed By: #### 5 7021-8 #### [facility] CLIA [id number] [address] [place] [address] 47597 Nucleated RBC (Bld) [#/Vol] 10*3/uL Normal <0.01 [facility] Comment on above: Order Comment: Speci men Type: BLOOD SPECIMEN Ordering Facility: [facility] Address: [address] [address] Performed By: #### 5 7021-8 #### [facility] CLIA [id number] [address] [place] [address] 44849 Nucleated RBC/100 WBC (Bld) [Ratio] 0.0 /100 WBC Normal [facility] Comment on above: Order Comment: Speci men Type: BLOOD SPECIMEN Ordering Facility: [facility] Address: [address] [address] Performed By: #### 5 7021-8 #### [facility] CLIA [id number] [address] [place] [address] 20088 Platelet mean volume (Bld) [Entitic vol] 9.9 fL Normal 9.0-12.7 [facility] Comment on above: Order Comment: Speci men Type: BLOOD SPECIMEN Ordering Facility: [facility] Address: [address] [address] Performed By: #### 5 7021-8 #### [facility] CLIA [id number] [address] [place] [address] 43934 Platelets (Bld) [#/Vol] 580 10*3/uL High 150-400 [facility] Comment on above: Order Comment: Speci men Type: BLOOD SPECIMEN Ordering Facility: [facility] Address: [address] [address] Performed By: #### 5 7021-8 #### [facility] CLIA [id number] [address] [place] [address] 68401 RBC (Bld) [#/Vol] 3.34 10*6/uL Low 3.90-5.20 [facility] Comment on above: Order Comment: Speci men Type: BLOOD SPECIMEN Ordering Facility: [facility] Address: [place] [address] Performed By: #### 5 7021-8 #### [facility] CLIA [id number] [address] [place] [address] 94757 WBC (Bld) [#/Vol] 6.82 10*3/uL Normal 3.70-11.00 [facility] Comment on above: Order Comment: Speci men Type: BLOOD SPECIMEN Ordering Facility: [facility] Address: [place] [address] Performed By: #### 5 7021-8 #### [facility] CLIA [id number] [address] [place] [address] 97160 CNNURSEon 04-08-2023 [facility] Nurse Visit ([place]) JOSEFA CASTILLO ([id number]) 1940 F Date Time Provider Department 04/08/23 10:30 AM MARTHA NURSE JACKSON DENT During your visit today, we recorded the following information about you: Janeth Pelletier MA 04/08/2023 11:15 AM Signed Patient Identification confirmed: yes. Injection given and documented on DEC per provider order. Janeth Pelletier MA Referring Provider: ROD ROMAN [[id number]] Allergies As of Date: 04/08/2023 Noted Allergy [...] vitamin B12 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] Order(s):N NURSING COMMUNICATION [[id number]] Order #: [id number]: 1 STANDING [] cyanocobalamin 1,000 mcg injectionDisp: [...] vitamin B12 deficie*09/02/2018 Visit Notes: >> Janeth Pelletier MA [place] Apr 08, 2023 11:14 AM Status: Signed Patient Identification confirmed: yes. Injection given and documented on DEC per provider order. Janeth Pelletier MA Prescriptions ordered this encounter Disp Refills Start End CYANOCOBALAMIN (VIT B-12) 1,000 MCG/* 04/08/2023 04/08/2023 Route: INTRAMUSCULA SODIUM CHLORIDE 0.9 % INTRAVENOUS SO* 04/08/2023 Cmt: Inform physician Route: INTRAVENOUS Encounter Status:Closed by JANETH PELLETIER on 04/08/23 [facility] CNOVSPon 04-08-2023 CNOVSP Visit (SP) Office ([place]) JOSEFA CASTILLO ([id number]) 1940 F Date Time Provider Department 04/08/23 10:15 AM ROD ROMAN During your visit today, we recorded the following information about you: Temperature Pulse Respiration Blood pressure 97.8 degrees 77/minute 16/minute 161/74 Weight Height 56.7 kg 1.575 m Rod Roman MD 04/11/2023 2:03 PM Signed NAME: Josefa Castillo CLINIC NO.: [id number] DATE OF SERVICE: April 08, 2023 (Carlos) [...] found to have thrombocytosis while living in [place]. 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 Continues B12 shots every 8 weeks [...] the left side of head over the mandaeism and into the jaw. No vision changes associated with pain. Intermittent and dull and pounding. Right mandaeism at the corner of her eye lid [...] energy. U (more content not included)... Normal [facility] Comprehensive metabolic 2000 panelon 04-08-2023 Albumin [Mass/Vol] 4.4 g/dL Normal 3.9-4.9 [facility] Comment on above: Order Comment: Speci men Type: BLOOD SPECIMEN Ordering Facility: [facility] Address: [address] [address] Performed By: #### 2 43238, 2531-0 #### [facility] CLIA [id number] [address] [place] [address] 71197 ALP [Catalytic activity/Vol] 60 U/L Normal 34-123 [facility] Comment on above: Order Comment: Speci men Type: BLOOD SPECIMEN Ordering Facility: [facility] Address: [address] [address] Performed By: #### 2 4328, 0 #### [facility] CLIA [id number] [address] [place] [address] 07309 ALT [Catalytic activity/Vol] 14 U/L Normal 7-38 [facility] Comment on above: Order Comment: Speci men Type: BLOOD SPECIMEN Ordering Facility: [facility] Address: [address] Performed By: #### 2 43238, 2531-0 #### [facility] CLIA [id number] [address] [place] [address] 04338 Anion gap [Moles/Vol] 9 mmol/L Normal 9-18 [facility] Comment on above: Order Comment: Speci men Type: BLOOD SPECIMEN Ordering Facility: [facility] Address: [address] [address] Performed By: #### 2 4328, 2531-0 #### [facility] CLIA [id number] [address] [place] [address] 97070 AST [Catalytic activity/Vol] 21 U/L Normal 13-35 [facility] Comment on above: Order Comment: Speci men Type: BLOOD SPECIMEN Ordering Facility: [facility] Address: [address] [place], [place] [address] Performed By: #### 2 4323-06, 2531-0 #### [facility] CLIA [id number] [address] [place] [address] 28800 Bilirubin [Mass/Vol] 0.5 mg/dL Normal 0.2-1.3 [facility] Comment on above: Order Comment: Speci men Type: BLOOD SPECIMEN Ordering Facility: [facility] Address: [address] [place], [place] [address] Performed By: #### 2 4323-06, 0 #### [facility] CLIA [id number] [address] [place] [address] 81310 Calcium [Mass/Vol] 9.5 mg/dL Normal 8.5-10.2 [facility] Comment on above: Order Comment: Speci men Type: BLOOD SPECIMEN Ordering Facility: [facility] Address: [address] [place], [place] [address] Performed By: #### 2 4323-06, 0 #### [facility] CLIA [id number] [address] [place] [address] 66705 Chloride [Moles/Vol] 102 mmol/L Normal 97-105 [facility] Comment on above: Order Comment: Speci men Type: BLOOD SPECIMEN Ordering Facility: [facility] Address: [address] [place], [place] [id number] Performed By: #### 2 43201-06, 2531-0 #### [facility] CLIA [id number] [address] [place] [address] 07627 CO2 [Moles/Vol] 27 mmol/L Normal 22-30 [facility] Comment on above: Order Comment: Speci men Type: BLOOD SPECIMEN Ordering Facility: [facility] Address: [address] [address] Performed By: #### 2 4323-8, 2531-0 #### [facility] CLIA [id number] [address] [place] [address] 67069 Creatinine [Mass/Vol] 0.88 mg/dL Normal 0.58-0.96 [facility] Comment on above: Order Comment: Speci men Type: BLOOD SPECIMEN Ordering Facility: [facility] Address: [address] [address] Performed By: #### 2 4328, #### [facility] CLIA [id number] [address] [place] [address] 76912 ESTIMATED GLOMERULAR FILTRATION RATE 66 mL/min/1.73m??? Normal >=60 [facility] Comment on above: Order Comment: Speci men Type: BLOOD SPECIMEN Ordering Facility: [facility] Address: [address] [place] [address] Result Comment: Esmer mated Glomerular Filtration Rate [...] Performed By: #### 2 4323-8, 0 #### [facility] CLIA [id number] [address] [place] [address] 71328 Glucose [Mass/Vol] 106 mg/dL High 74-99 [facility] Comment on above: Order Comment: Speci pranay Type: BLOOD SPECIMEN Ordering Facility: [facility] Address: [address] [place], [place] [address] Result Comment: The [place] [employer] (ADA) provides guidance for cutoff [...] Standards of Medical Care in Diabetes 2016, [place] [employer]. Diabetes Care. 2016.39(Suppl 1). Performed By: #### 2 4323-06, #### [facility] CLIA [id number] [address] [place] [address] 61666 Potassium [Moles/Vol] 4.3 mmol/L Normal 3.7-5.1 [facility] Comment on above: Order Comment: Specmarv pires Type: BLOOD SPECIMEN Ordering Facility: [facility] Address: [address] [place] [address] Performed By: #### 2 4323-06, #### [facility] CLIA [id number] [address] [place] [address] 67220 Protein [Mass/Vol] 6.7 g/dL Normal 6.3-8.0 [facility] Comment on above: Order Comment: Quincy pires Type: BLOOD SPECIMEN Ordering Facility: [facility] Address: [address] [address] Performed By: #### 2 4323-06, #### [facility] CLIA [id number] [address] [place] [address] 84358 Sodium [Moles/Vol] 138 mmol/L Normal 136-144 [facility] Comment on above: Order Comment: Quincy pires Type: BLOOD SPECIMEN Ordering Facility: [facility] Address: [address] [address] Performed By: #### 2 4323-06, #### [facility] CLIA [id number] [address] [place] [address] 39590 Urea nitrogen [Mass/Vol] 10 mg/dL Normal 7-21 [facility] Comment on above: Order Comment: Speci men Type: BLOOD SPECIMEN Ordering Facility: [facility] Address: [address] [id number] Performed By: #### 2 4323-8, 2532-0 #### [facility] CLIA [id number] [address] [place] [address] 68022 LDH SerPl-cCncon 04-08-2023 LDH [Catalytic activity/Vol] 215 U/L High 135-214 [facility] Comment on above: Order Comment: Speci men Type: BLOOD SPECIMEN Ordering Facility: [facility] Address: [address] [address] Result Comment: Hemo lysis present. The origin [...] Performed By: #### 2 4323-8, 2532-0 #### [facility] CLIA [id number] [address] [place] [address] 01909 Telemedicineon 02-19-2023 Telemedicine [id number] Chloe Castillo 1940 F Date Provider Department Center 02/19/2023 LINA IZAGUIRRE [facility] Family History Problem Relation Age of Onset Breast cancer Mother Diabetes Mother Diabetes Father Family Status - Relation Status Age at Mother Father Level of Service:87350 [place] PHYS/QHP TELEPHONE EVALUATION 11-20 MIN Reason for Visit and Comments: Coronary Artery Disease [187] Hypertension [175782] Telehealth Phone Visit [872] Normal [facility] CBC AUTO DIFFon 01-25-2023 BASO # 0.1 103/ul Normal 0.0-0.1 [facility] Comment on above: Performed By: #### C BC #### [facility] [address] [address] [address] Dianna Alcocer Basophils/100 WBC (Bld) 0.6 % Normal 0.2-2.0 [facility] Comment on above: Performed By: #### C BC #### [facility] [address] [place] [address] Dr. Dianna Alcocer EO # 0.1 103/ul Normal 0.0-0.7 [facility] Comment on above: Performed By: #### C BC #### [facility] [address] [place] [address] Dr. Dianna Alcocer Eosinophils/100 WBC (Bld) 0.7 % Critically low 0.9-7.0 [facility] Comment on above: Performed By: #### C BC #### [facility] [address] [place] [address] Dr. Dianna Alcocer Erythrocyte distribution width (RBC) [Ratio] 13.4 % Normal 11.0-15.0 [facility] Comment on above: Performed By: #### C BC #### [facility] [address] [place] [address] Dr. Dianna Alcocer Hematocrit (Bld) [Volume fraction] 38.9 % Normal 36.0-48.0 [facility] Comment on above: Performed By: #### C BC #### [facility] [address] [place] [address] Dr. Dianna Alcocer Hemoglobin (Bld) [Mass/Vol] 13.2 g/dL Normal 12.0-16.0 [facility] Comment on above: Performed By: #### C BC #### [facility] [address] [place] [address] Dr. Dianna Alcocer IG # 0.03 10e3/ul Normal 0.00-0.03 [facility] Comment on above: Performed By: #### C BC #### [facility] [address] [place] [address] Dr. Dianna Alcocer IG % 0.4 % Normal 0.0-0.5 [facility] Comment on above: Performed By: #### C BC #### [facility] [address] [place] [address] Dr. Dianna Alcocer LYMPH # 1.4 103/ul Normal 1.2-3.8 [facility] Comment on above: Performed By: #### C BC #### [facility] [address] [place] [address] Dr. Dianna Alcocer Lymphocytes/100 WBC (Bld) 17.0 % Critically low 20.5-60.0 [facility] Comment on above: Performed By: #### C BC #### [facility] [address] [place] [address] Dr. Dianna Alcocer MANUAL DIFF REQ NO Normal [facility] Comment on above: Performed By: #### C BC #### [facility] [address] [place] [address] Dr. Dianna Alcocer MCH (RBC) [Entitic mass] 39.6 pg Critically high 26.7-34.0 [facility] Comment on above: Performed By: #### C BC #### [facility] [address] [place] [address] Dr. Dianna Alcocer MCHC (RBC) [Mass/Vol] 33.9 g/dL Normal 29.9-35.2 [facility] Comment on above: Performed By: #### C BC #### [facility] [address] [place] [address] Dr. Dianna Alcocer MCV (RBC) [Entitic vol] 116.8 fL Critically high 81.0-99.0 [facility] Comment on above: Performed By: #### C BC #### [facility] [address] [place] [address] Dr. Dianna Alcocer MONO # 0.6 103/ul Normal 0.3-0.8 [facility] Comment on above: Performed By: #### C BC #### [facility] [address] [place] [address] Dr. Dianna Alcocer Monocytes/100 WBC (Bld) 7.5 % Normal 1.7-12.0 [facility] Comment on above: Performed By: #### C BC #### [facility] [address] [place] [address] Dr. Dianna Alcocer NEUT # 5.9 103/ul Normal 1.4-6.5 [facility] Comment on above: Performed By: #### C BC #### [facility] [address] [address] [address] Dianna Alcocer Neutrophils/100 WBC (Bld) 73.8 % Normal 43.0-75.0 [facility] Comment on above: Performed By: #### C BC #### [facility] [address] [address] [address] Dianna Alcocer Platelet mean volume (Bld) [Entitic vol] 9.9 fL Normal 9.5-13.5 [facility] Comment on above: Performed By: #### C BC #### [facility] [address] [address] [address] Dianna Alcocer PLT 576 103/ul Critically high 150-450 [facility] Comment on above: Performed By: #### C BC #### [facility] [address] [place] [address] Dr. Dianna Alcocer RBC 3.33 106/ul Critically low 4.20-5.40 [facility] Comment on above: Performed By: #### C BC #### [facility] [address] [address] [address] Dianna Alcocer WBC 8.0 103/ul Normal 4.0-11.0 [facility] Comment on above: Performed By: #### C BC #### [facility] [address] [place] [address] Dr. Dianna Alcocer LIPID PROFILEon 01-25-2023 CHOL-HDL RATIO NORM SEE BELOW Normal [facility] Comment on above: Result Comment: 3.3 - 4.4 LOW RISK 4.4 - 7.1 AVERAGE RISK 7.1 - 11.0 MODERATE RISK >11.0 HIGH RISK Performed By: #### C MADM, BNP, CMP #### [facility] [address] [place] [address] Dr. Dianna Alcocer Cholesterol [Mass/Vol] 123 mg/dL Normal <=200 [facility] Comment on above: Performed By: #### C MADM, BNP, CMP #### [facility] [address] [address] [address] Dianna Alcocer Cholesterol in HDL [Mass/Vol] 60 mg/dL Normal 40-60 [facility] Comment on above: Performed By: #### C MADM, BNP, CMP #### [facility] [address] [place] [address] Dr. Dianna Alcocer Cholesterol in LDL [Mass/Vol] 50.4 mg/dL Normal [facility] Comment on above: Performed By: #### C MADM, BNP, CMP #### [facility] [address] [place] [address] Dr. Dianna Alcocer Cholesterol.total/C holesterol in HDL [Mass ratio] 2.1 {ratio} Normal [facility] Comment on above: Performed By: #### C MADM, BNP, CMP #### [facility] [address] [place] [address] Dr. Dianna Alcocer HDL NORMAL > or = 60 mg/dl - LO W CARDIOVASCULAR RISK <40 mg/dl - HIGH CARDIOVASCULAR RISK Normal [facility] Comment on above: Performed By: #### C MADM, BNP, CMP #### [facility] [address] [place] [address] Dr. Dianna Alcocer LDL CALC NORMAL SEE BELOW Normal [facility] Comment on above: Result Comment: <100 mg/dl OPTIMAL 100 - 129 mg/dl NEAR OR ABOVE OPTIMAL 130 - 159 mg/dl BORDERLINE HIGH 160 - 189 mg/dl HIGH >190 mg/dl VERY HIGH Performed By: #### C MADM, BNP, CMP #### [facility] [address] [place] [address] Dr. Dianna Alcocer Triglyceride [Mass/Vol] 63 mg/dL Normal <=150 [facility] Comment on above: Performed By: #### C MADM, BNP, CMP #### [facility] [address] [place] [address] Dr. Dianna Alcocer VLDL CALC 12.6 mg/dL Normal [facility] Comment on above: Performed By: #### C MADM, BNP, CMP #### [facility] [address] [place] [address] Dr. Dianna Alcocer LIVER PROFILEon 01-25-2023 Albumin [Mass/Vol] 4.0 g/dL Normal 3.4-5.0 [facility] Comment on above: Performed By: #### C MADM, BNP, CMP #### [facility] [address] [address] [address] Dianna Alcocer Albumin/Globulin [Mass ratio] 1.4 {ratio} Normal [facility] Comment on above: Performed By: #### C MADM, BNP, CMP #### [facility] [address] [address] [address] Dianna Alcocer ALP [Catalytic activity/Vol] 74 U/L Normal 46-116 [facility] Comment on above: Performed By: #### C MADM, BNP, CMP #### [facility] [address] [place] [address] Dr. Dianna Alcocer ALT [Catalytic activity/Vol] 21 U/L Normal 14-59 [facility] Comment on above: Performed By: #### C MADM, BNP, CMP #### [facility] [address] [address] [address] Dianna Alcocer AST [Catalytic activity/Vol] 18 U/L Normal 15-37 [facility] Comment on above: Performed By: #### C MADM, BNP, CMP #### [facility] [address] [place] [address] Dr. Dianna Alcocer BILI, CONJUGATED 0.1 mg/dL Normal 0.0-0.2 [facility] Comment on above: Performed By: #### C MADM, BNP, CMP #### [facility] [address] [place] [address] Dr. Dianna Alcocer Bilirubin [Mass/Vol] 0.5 mg/dL Normal 0.2-1.0 [facility] Comment on above: Performed By: #### C MADM, BNP, CMP #### [facility] [address] [place] [address] Dr. Dianna Alcocer Globulin (S) [Mass/Vol] 2.9 g/dL Normal [facility] Comment on above: Performed By: #### C MADM, BNP, CMP #### [facility] [address] [place] [address] Dr. Dianna Alcocer Protein [Mass/Vol] 6.9 g/dL Normal 6.4-8.2 [facility] Comment on above: Performed By: #### C MADM, BNP, CMP #### [facility] [address] [place] [address] Dr. Dianna Alcocer PROF CHEM 8 (BAS METB)on Anion gap [Moles/Vol] 14.7 mmol/L Normal [facility] Comment on above: Performed By: #### C MADM, BNP, CMP #### [facility] [address] [place] [address] Dr. Dianna Alcocer Calcium [Mass/Vol] 8.9 mg/dL Normal 8.5-10.1 [facility] Comment on above: Performed By: #### C MADM, BNP, CMP #### [facility] [address] [place] [address] Dr. Dianna Alcocer Chloride [Moles/Vol] 103 mmol/L Normal 98-107 [facility] Comment on above: Performed By: #### C MADM, BNP, CMP #### [facility] [address] [place] [address] Dr. Dianna Alcocer CO2 [Moles/Vol] 28.6 mmol/L Normal 21.0-32.0 [facility] Comment on above: Performed By: #### C MADM, BNP, CMP #### [facility] [address] [place] [address] Dr. Dianna Alcocer Creatinine [Mass/Vol] 0.88 mg/dL Normal 0.55-1.02 [facility] Comment on above: Performed By: #### C MADM, BNP, CMP #### [facility] [address] [place] [address] Dr. Dianna Alcocer EGFR-AF GUAMANIAN >60 Normal >=60 [facility] Comment on above: Performed By: #### C MADM, BNP, CMP #### [facility] [address] [place] [address] Dr. Dianna Alcocer EGFR-NON AF GUAMANIAN >60 Normal >=60 [facility] Comment on above: Performed By: #### C MADM, BNP, CMP #### [facility] [address] [place] [address] Dr. Dianna Alcocer Glucose [Mass/Vol] 110 mg/dL Critically high 74-106 [facility] Comment on above: Performed By: #### C MADM, BNP, CMP #### [facility] [address] [place] [address] Dr. Dianna Alcocer Potassium [Moles/Vol] 4.3 mmol/L Normal 3.5-5.1 [facility] Comment on above: Performed By: #### C MADM, BNP, CMP #### [facility] [address] [place] [address] Dr. Dianna Alcocer Sodium [Moles/Vol] 142 mmol/L Normal 136-145 [facility] Comment on above: Performed By: #### C MADM, BNP, CMP #### [facility] [address] [place] [address] Dr. Dianna Alcocer Urea nitrogen [Mass/Vol] 11.0 mg/dL Normal 7.0-18.0 [facility] Comment on above: Performed By: #### C MADM, BNP, CMP #### [facility] [address] [place] [address] Dr. Dianna Alcocer Urea nitrogen/Creatinine [Mass ratio] 12.5 mg/mg Normal [facility] Comment on above: Performed By: #### C MADM, BNP, CMP #### [facility] [address] [place] [address] Dr. Dianna Alcocer BNPon 08-24-2022 Natriuretic peptide B (Bld) [Mass/Vol] 469.0 pg/mL Normal <=1,800.0 [facility] Comment on above: Performed By: #### C MADM, BNP, CMP #### [facility] [address] [place] [address] Dr. Dianna Alcocer CARDIAC KEMAR ADMITon 022 CK [Catalytic activity/Vol] 145 U/L Normal 26-192 [facility] Comment on above: Performed By: #### C MADM, BNP, CMP #### [facility] [address] [address] [address] Dianna Alcocer CK.MB [Mass/Vol] 3.17 ng/mL Normal <=3.60 [facility] Comment on above: Performed By: #### C MADM, BNP, CMP #### [facility] [address] [address] [address] Dianna Alcocer HSTROP 8.4 pg/mL Normal 4.0-51.3 [facility] Comment on above: Result Comment: CUT- OFF POINTS HAVE BEEN ESTABLISHED BASED ON THE FOURTH UNIVERSAL DEFINITIONS OF MYOCARDIAL INFARCTION. THE UPPER REFERENCE LIMIT (URL) OF TROPONIN, DEFINED THE 99TH PERCENTILE OF cTnI DISTRIBUTION IN A REFERENCE POPULATION, HAS BEEN CONFIRMED THE DECISION THRESHOLD FOR [place] DIAGNOSIS. Performed By: #### C MADM, BNP, CMP #### [facility] [address] [address] [address] Dianna Alcocer BOB 155 ng/mL Critically high [facility] Comment on above: Performed By: #### C MADM, BNP, CMP #### [facility] [address] [address] [address] Dianna Alcocer CBC AUTO DIFFon 08-24-2022 BASO # 0.1 103/ul Normal 0.0-0.1 [facility] Comment on above: Performed By: #### C BC #### [facility] [address] [address] [address] Dianna Alcocer Basophils/100 WBC (Bld) 1.6 % Normal 0.2-2.0 [facility] Comment on above: Performed By: #### C BC #### [facility] [address] [address] [address] Dianna Alcocer EO # 0.1 103/ul Normal 0.0-0.7 [facility] Comment on above: Performed By: #### C BC #### [facility] [address] [address] [address] Dianna Alcocer Eosinophils/100 WBC (Bld) 1.6 % Normal 0.9-7.0 [facility] Comment on above: Performed By: #### C BC #### [facility] [address] [place] [address] Dr. Dianna Alcocer Erythrocyte distribution width (RBC) [Ratio] 13.1 % Normal 11.0-15.0 [facility] Comment on above: Performed By: #### C BC #### [facility] [address] [place] [address] Dr. Dianna Alcocer Hematocrit (Bld) [Volume fraction] 38.6 % Normal 36.0-48.0 [facility] Comment on above: Performed By: #### C BC #### [facility] [address] [place] [address] Dr. Dianna Alcocer Hemoglobin (Bld) [Mass/Vol] 13.2 g/dL Normal 12.0-16.0 [facility] Comment on above: Performed By: #### C BC #### [facility] [address] [place] [address] Dr. Dianna Alcocer IG # 0.01 10e3/ul Normal 0.00-0.03 [facility] Comment on above: Performed By: #### C BC #### [facility] [address] [place] [address] Dr. Dianna Alcocer IG % 0.2 % Normal 0.0-0.5 [facility] Comment on above: Performed By: #### C BC #### [facility] [address] [place] [address] Dr. Dianna Alcocer LYMPH # 1.7 103/ul Normal 1.2-3.8 [facility] Comment on above: Performed By: #### C BC #### [facility] [address] [place] [address] Dr. Dianna Alcocer Lymphocytes/100 WBC (Bld) 39.3 % Normal 20.5-60.0 [facility] Comment on above: Performed By: #### C BC #### [facility] [address] [place] [address] Dr. Dianna Alcocer MANUAL DIFF REQ NO Normal [facility] Comment on above: Performed By: #### C BC #### [facility] [address] [place] [address] Dr. Dianna Alcocer MCH (RBC) [Entitic mass] 41.4 pg Critically high 26.7-34.0 [facility] Comment on above: Performed By: #### C BC #### [facility] [address] [place] [address] Dr. Dianna Alcocer MCHC (RBC) [Mass/Vol] 34.2 g/dL Normal 29.9-35.2 [facility] Comment on above: Performed By: #### C BC #### [facility] [address] [place] [address] Dr. Dianna Alcocer MCV (RBC) [Entitic vol] 121.0 fL Critically high 81.0-99.0 [facility] Comment on above: Performed By: #### C BC #### [facility] [address] [place] [address] Dr. Dianna Alcocer MONO # 0.5 103/ul Normal 0.3-0.8 [facility] Comment on above: Performed By: #### C BC #### [facility] [address] [place] [address] Dr. Dianna Alcocer Monocytes/100 WBC (Bld) 12.0 % Normal 1.7-12.0 [facility] Comment on above: Performed By: #### C BC #### [facility] [address] [place] [address] Dr. Dianna Alcocer NEUT # 2.0 103/ul Normal 1.4-6.5 [facility] Comment on above: Performed By: #### C BC #### [facility] [address] [place] [address] Dr. Dianna Alcocer Neutrophils/100 WBC (Bld) 45.3 % Normal 43.0-75.0 [facility] Comment on above: Performed By: #### C BC #### [facility] [address] [place] [address] Dr. Dianna Alcocer Platelet mean volume (Bld) [Entitic vol] 10.0 fL Normal 9.5-13.5 [facility] Comment on above: Performed By: #### C BC #### [facility] [address] [address] [address] Dianna Alcocer PLT 228 103/ul Normal 150-450 [facility] Comment on above: Performed By: #### C BC #### [facility] [address] [id number] Dianna Alcocer RBC 3.19 106/ul Critically low 4.20-5.40 [facility] Comment on above: Performed By: #### C BC #### [facility] [address] [address] [address] Dianna Alcocer WBC 4.3 103/ul Normal 4.0-11.0 [facility] Comment on above: Performed By: #### C BC #### [facility] [address] [address] [address] Dianna Alcocer CULTURE URINEon 08-24-2022 CULTURE URINE Culture Observations : LIGHT GROWTH OF MIXED GENITAL SATHYA. NO POTENTIAL PATHOGENS SEEN. Normal [facility] Comment on above: Performed By: #### C MADM, BNP, CMP #### [facility] [address] [address] [address] Dianna Alcocer DRUG SCREEN RAPID (URINE)on 08-24-2022 AMP Negative Normal NEGATIVE [facility] Comment on above: Performed By: #### D EDEN CARRASQUILLO, ERUR #### [facility] [address] [address] [address] Dianna Alcocer BAR Negative Normal NEGATIVE [facility] Comment on above: Performed By: #### D EDEN CARRASQUILLO, ERUR #### [facility] [address] [address] [address] Dianna Alcocer BUP Negative Normal NEGATIVE [facility] Comment on above: Performed By: #### D EDEN CARRASQUILLO, ERUR #### [facility] [address] [address] [address] Dianna Alcocer BZO Negative Normal NEGATIVE [facility] Comment on above: Performed By: #### D EDEN CARRASQUILLO, ERUR #### [facility] [address] [address] [address] Dianna Alcocer HASMUKH Negative Normal NEGATIVE [facility] Comment on above: Performed By: #### D EDEN CARRASQUILLO, ERUR #### [facility] [address] [address] [address] Dianna Alcocer CUT-OFFS SEE BELOW Normal [facility] Comment on above: Result Comment: AMP (Amphetamine): [...] By: #### D EDEN CARRASQUILLO, ERUR #### [facility] [address] [place] [address] Dr. Dianna Alcocer DRUG CUT HEADER DRUG CLASS TEST SYST EM CUT-OFF CONCENTRATIONS ARE FOLLOWS: Normal [facility] Comment on above: Performed By: #### D EDEN CARRASQUILLO, ERUR #### [facility] [address] [address] [address] Dianna Alcocer mAMP Negative Normal NEGATIVE [facility] Comment on above: Performed By: #### D EDEN CARRASQUILLO, ERUR #### [facility] [address] [address] [address] Dianna Alcocer MTD Negative Normal NEGATIVE [facility] Comment on above: Performed By: #### D EDEN CARRASQUILLO, ERUR #### [facility] [address] [address] [address] Dianna Alcocer OPI Positive Abnormal NEGATIVE [facility] Comment on above: Performed By: #### D EDEN CARRASQUILLO, ERUR #### [facility] [address] [address] [address] Dianna Alcocer OXY Negative Normal NEGATIVE [facility] Comment on above: Performed By: #### D EDEN CARRASQUILLO, ERUR #### [facility] [address] [place] [address] Dr. Dianna Alcocer PCP Negative Normal NEGATIVE [facility] Comment on above: Performed By: #### D EDEN CARRASQUILLO, ERUR #### [facility] [address] [address] [address] Dianna Alcocer PPX Negative Normal NEGATIVE [facility] Comment on above: Performed By: #### D EDEN CARRASQUILLO, ERUR #### [facility] [address] [place] [address] Dr. Dianna Alcocer TCA Negative Normal NEGATIVE [facility] Comment on above: Performed By: #### D EDEN CARRASQUILLO, ERUR #### [facility] [address] [place] [address] Dr. Dianna Alcocer THC Negative Normal NEGATIVE [facility] Comment on above: Performed By: #### D EDEN CARRASQUILLO, ERUR #### [facility] [address] [place] [address] Dr. Dianna Alcocer ER URINE PROFILEon 2 Bilirubin Ql (U) Negative Normal NEGATIVE [facility] Comment on above: Performed By: #### D EDEN CARRASQUILLO, ERUR #### [facility] [address] [place] [address] Dr. Dianna Alcocer Clarity (U) CLEAR Normal CLEAR [facility] Comment on above: Performed By: #### D EDEN CARRASQUILLO, ERUR #### [facility] [address] [place] [address] Dr. Dianna Alcocer Color (U) LT. YELLOW Normal YELLOW [facility] Comment on above: Performed By: #### D EDEN CARRASQUILLO, ERUR #### [facility] [address] [place] [address] Dr. Dianna GODOYAHHeydi A micrscopic examination will be performed if indicated. Normal [facility] Comment on above: Performed By: #### D EDEN CARRASQUILLO, ERUR #### [facility] [address] [address] [address] Dianna Alcocer Glucose Ql (U) Negative Normal NEGATIVE [facility] Comment on above: Performed By: #### D EDEN CARRASQUILLO, ERUR #### [facility] [address] [address] [address] Dianna Alcocer Hemoglobin Ql (U) MODERATE Abnormal NEGATIVE [place] Comment on above: Performed By: #### D EDEN CARRASQUILLO, ERUR #### [facility] [address] [address] [address] Dianna Alcocer Ketones Ql (U) Negative Normal NEGATIVE [facility] Comment on above: Performed By: #### D EDEN CARRASQUILLO, ERUR #### [facility] [address] [address] [address] Dianna Alcocer LEUKOCYTES SMALL Abnormal NEGATIVE [facility] Comment on above: Performed By: #### D EDEN CARRASQUILLO, ERUR #### [facility] [address] [address] [address] Dianna Alcocer Nitrite Ql (U) Negative Normal NEGATIVE [facility] Comment on above: Performed By: #### D EDEN CARRASQUILLO, ERUR #### [facility] [address] [address] [address] Dianna Alcocer pH (U) 6.0 [pH] Normal 5-9 [facility] Comment on above: Performed By: #### D EDEN CARRASQUILLO, ERUR #### [facility] [address] [address] [address] Dianna Alcocer SPEC GRAVITY 1.020 Normal 1.005-<=1.025 [facility] Comment on above: Performed By: #### D EDEN CARRASQUILLO, ERUR #### [facility] [address] [address] [address] Dianna Alcocer UA PROTEIN Negative Normal NEGATIVE/ TRACE [facility] Comment on above: Performed By: #### D EDEN CARRASQUILLO, ERUR #### [facility] [address] [address] [address] Dianna Alcocer UR MICRO IND INDICATED Normal [facility] Comment on above: Performed By: #### D EDEN CARRASQUILLO, ERUR #### [facility] [address] [address] [address] Dianna Alcocer Urobilinogen Qn (U) 0.2 {Simone'U}/dL Normal 0.2 - 1. 0 [facility] Comment on above: Performed By: #### D EDEN CARRASQUILLO, ERUR #### [facility] [address] [place] [address] Dr. Dianna Alcocer PROF 14(COMP METB)on 022 Albumin [Mass/Vol] 4.0 g/dL Normal 3.4-5.0 [facility] Comment on above: Performed By: #### C MADM, BNP, CMP #### [facility] [address] [place] [address] Dr. Dianna Alcocer Albumin/Globulin [Mass ratio] 1.4 {ratio} Normal [facility] Comment on above: Performed By: #### C MADM, BNP, CMP #### [facility] [address] [place] [address] Dr. Dianna Alcocer ALP [Catalytic activity/Vol] 57 U/L Normal 46-116 [facility] Comment on above: Performed By: #### C MADM, BNP, CMP #### [facility] [address] [place] [address] Dr. Dianna Alcocer ALT [Catalytic activity/Vol] 15 U/L Normal 14-59 [facility] Comment on above: Performed By: #### C MADM, BNP, CMP #### [facility] [address] [place] [address] Dr. Dianna Alcocer Anion gap [Moles/Vol] 11.3 mmol/L Normal [facility] Comment on above: Performed By: #### C MADM, BNP, CMP #### [facility] [address] [address] [address] Dianna Alcocer AST [Catalytic activity/Vol] 16 U/L Normal 15-37 [facility] Comment on above: Performed By: #### C MADM, BNP, CMP #### [facility] [address] [address] [address] Dianna Alcocer Bilirubin [Mass/Vol] 0.6 mg/dL Normal 0.2-1.0 [facility] Comment on above: Performed By: #### C MADM, BNP, CMP #### [facility] [address] [address] [address] Dianna Alcocer Calcium [Mass/Vol] 8.6 mg/dL Normal 8.5-10.1 [facility] Comment on above: Performed By: #### C MADM, BNP, CMP #### [facility] [address] [address] [address] Dianna Alcocer Chloride [Moles/Vol] 100 mmol/L Normal 98-107 [facility] Comment on above: Performed By: #### C MADM, BNP, CMP #### [facility] [address] [address] [address] Dianna Alcocer CO2 [Moles/Vol] 28.4 mmol/L Normal 21.0-32.0 [facility] Comment on above: Performed By: #### C MADM, BNP, CMP #### [facility] [address] [address] [address] Dianna Alcocer Creatinine [Mass/Vol] 0.97 mg/dL Normal 0.55-1.02 [facility] Comment on above: Performed By: #### C MADM, BNP, CMP #### [facility] [address] [address] [address] Dianna Alcocer EGFR-AF GUAMANIAN >60 Normal >=60 [facility] Comment on above: Performed By: #### C MADM, BNP, CMP #### [facility] [address] [address] [address] Dianna Alcocer EGFR-NON AF GUAMANIAN 55 mL/min/1.73m2 Critically low >=60 [facility] Comment on above: Performed By: #### C MADM, BNP, CMP #### [facility] [address] [address] [address] Dianna Alcocer Globulin (S) [Mass/Vol] 2.9 g/dL Normal [facility] Comment on above: Performed By: #### C MADM, BNP, CMP #### [facility] [address] [address] [address] Dianna Alcocer Glucose [Mass/Vol] 86 mg/dL Normal 74-106 [facility] Comment on above: Performed By: #### C MADM, BNP, CMP #### [facility] [address] [address] [address] Dianna Alcocer Potassium [Moles/Vol] 3.7 mmol/L Normal 3.5-5.1 [facility] Comment on above: Performed By: #### C MADM, BNP, CMP #### [facility] [address] [address] [address] Dianna Alcocer Protein [Mass/Vol] 6.9 g/dL Normal 6.4-8.2 [facility] Comment on above: Performed By: #### C MADM, BNP, CMP #### [facility] [address] [address] [address] Dianna Alcocer Sodium [Moles/Vol] 136 mmol/L Normal 136-145 [facility] Comment on above: Performed By: #### C MADM, BNP, CMP #### [facility] [address] [address] [address] Dianna Alcocer Urea nitrogen [Mass/Vol] 9.0 mg/dL Normal 7.0-18.0 [facility] Comment on above: Performed By: #### C MADM, BNP, CMP #### [facility] [address] [address] [address] Dianna Alcocer Urea nitrogen/Creatinine [Mass ratio] 9.3 mg/mg Normal [facility] Comment on above: Performed By: #### C MADM, BNP, CMP #### [facility] [address] [place] [address] Dr. Dianna Alcocer URINE MICROSCOPIC ONLYon BACTERIA NONE SEEN Normal NONE SEEN [facility] Comment on above: Performed By: #### D EDEN CARRASQUILLO, ERUR #### [facility] [address] [place] [address] Dr. Dianna Alcocer Bacteria identified Cx Nom (U) INDICATED Normal [facility] Comment on above: Performed By: #### D EDEN CARRASQUILLO, ERUR #### [facility] [address] [place] [address] Dr. Dianna Alcocer CAST NONE SEEN Normal NONE SEEN [facility] Comment on above: Performed By: #### D EDEN CARRASQUILLO, ERUR #### [facility] [address] [place] [address] Dr. Dianna Alcocer Crystals LM Nom (Urine sed) NONE SEEN Normal NONE SEEN [facility] Comment on above: Performed By: #### D EDEN CARRASQUILLO, ERUR #### [facility] [address] [place] [address] Dr. Dianna Alcocer Epithelial cells LM Ql (Urine sed) FEW Abnormal NONE SEEN /RARE [facility] Comment on above: Performed By: #### D EDEN CARRASQUILLO, ERUR #### [facility] [address] [place] [address] Dr. Dianna Alcocer MUCOUS TRACE Abnormal NONE SEEN [facility] Comment on above: Performed By: #### D EDEN CARRASQUILLO, ERUR #### [facility] [address] [place] [address] Dr. Dianna Alcocer RBC 2-5 Abnormal 0-2 [facility] Comment on above: Performed By: #### D EDEN CARRASQUILLO, ERUR #### [facility] [address] [place] [address] Dr. Dianna Alcocer WBC 2-5 Abnormal NONE SEEN [facility] Comment on above: Performed By: #### D EDEN CARRASQUILLO, ERUR #### [facility] [address] [place] [address] Dr. Dianna Alcocer VIT B12 AND FOLATEon Cobalamin (Vitamin B12) [Mass/Vol] 703.0 pg/mL Normal 193.0-986.0 [facility] Comment on above: Performed By: #### C RAMANDEEPM BNP, CMP #### [facility] [address] [address] [address] Dianna Alcocer FOLATE 12.90 ng/mL Normal 8.60-58.90 [facility] Comment on above: Performed By: #### C MADM BNP, CMP #### [facility] [address] [address] [address] Dianna Alcocer XR CHEST 1 Von [...] process. Stable chest. Electronically authenticated by: LUZ BANKS Date: 2022-08-24 10:01 Normal [facility] CBC AUTO DIFFon 08-23-2022 BASO # 0.1 103/ul Normal 0.0-0.1 [facility] Comment on above: Performed By: #### C RAMANDEEPM BNP, CMP #### [facility] [address] [place] [address] Dr. Dianna Alcocer Basophils/100 WBC (Bld) 1.2 % Normal 0.2-2.0 [facility] Comment on above: Performed By: #### C MADM, BNP, CMP #### [facility] [address] [place] [address] Dr. Dianna Alcocer EO # 0.1 103/ul Normal 0.0-0.7 [facility] Comment on above: Performed By: #### C MADM, BNP, CMP #### [facility] [address] [place] [address] Dr. Dianna Alcocer Eosinophils/100 WBC (Bld) 1.9 % Normal 0.9-7.0 [facility] Comment on above: Performed By: #### C MADM, BNP, CMP #### [facility] [address] [place] [address] Dr. Dianna Alcocer Erythrocyte distribution width (RBC) [Ratio] 12.9 % Normal 11.0-15.0 [facility] Comment on above: Performed By: #### C MADM, BNP, CMP #### [facility] [address] [place] [address] Dr. Dianna Alcocer Hematocrit (Bld) [Volume fraction] 40.4 % Normal 36.0-48.0 [facility] Comment on above: Performed By: #### C MADM, BNP, CMP #### [facility] [address] [place] [address] Dr. Dianna Alcocer Hemoglobin (Bld) [Mass/Vol] 13.9 g/dL Normal 12.0-16.0 [facility] Comment on above: Performed By: #### C MADM, BNP, CMP #### [facility] [address] [place] [address] Dr. Dianna Alcocer IG # 0.01 10e3/ul Normal 0.00-0.03 [facility] Comment on above: Performed By: #### C MADM, BNP, CMP #### [facility] [address] [place] [address] Dr. Dianna Alcocer IG % 0.2 % Normal 0.0-0.5 [facility] Comment on above: Performed By: #### C MADM, BNP, CMP #### [facility] [address] [place] [address] Dr. Dianna Alcocer LYMPH # 1.7 103/ul Normal 1.2-3.8 [facility] Comment on above: Performed By: #### C MADM, BNP, CMP #### [facility] [address] [place] [address] Dr. Dianna Alcocer Lymphocytes/100 WBC (Bld) 39.3 % Normal 20.5-60.0 [facility] Comment on above: Performed By: #### C MADM, BNP, CMP #### [facility] [address] [address] [address] Dianna Alcocer MANUAL DIFF REQ NO Normal [facility] Comment on above: Performed By: #### C MADM, BNP, CMP #### [facility] [address] [address] [address] Dianna Alcocer MCH (RBC) [Entitic mass] 41.0 pg Critically high 26.7-34.0 [facility] Comment on above: Performed By: #### C MADM, BNP, CMP #### [facility] [address] [place] [address] Dr. Dianna Alcocer MCHC (RBC) [Mass/Vol] 34.4 g/dL Normal 29.9-35.2 [facility] Comment on above: Performed By: #### C MADM, BNP, CMP #### [facility] [address] [place] [address] Dr. Dianna Alcocer MCV (RBC) [Entitic vol] 119.2 fL Critically high 81.0-99.0 [facility] Comment on above: Result Comment: 2+ m acrocytosis Performed By: #### C MADM, BNP, CMP #### [facility] [address] [place] [address] Dr. Dianna Alcocer MONO # 0.6 103/ul Normal 0.3-0.8 [facility] Comment on above: Performed By: #### C MADM, BNP, CMP #### [facility] [address] [place] [address] Dr. Dianna Alcocer Monocytes/100 WBC (Bld) 13.1 % Critically high 1.7-12.0 [facility] Comment on above: Performed By: #### C MADM, BNP, CMP #### [facility] [address] [place] [address] Dr. Dianna Alcocer NEUT # 1.9 103/ul Normal 1.4-6.5 [facility] Comment on above: Performed By: #### C MADM, BNP, CMP #### [facility] [address] [address] [address] Dianna Alcocer Neutrophils/100 WBC (Bld) 44.3 % Normal 43.0-75.0 [facility] Comment on above: Performed By: #### C MADM, BNP, CMP #### [facility] [address] [address] [address] Dianna Alcocer Platelet mean volume (Bld) [Entitic vol] 9.9 fL Normal 9.5-13.5 [facility] Comment on above: Performed By: #### C MADM, BNP, CMP #### [facility] [address] [address] [address] Dianna Alcocer PLT 274 103/ul Normal 150-450 [facility] Comment on above: Performed By: #### C MADM, BNP, CMP #### [facility] [address] [address] [address] Dianna Alcocer RBC 3.39 106/ul Critically low 4.20-5.40 [facility] Comment on above: Performed By: #### C MADM, BNP, CMP #### [facility] [address] [address] [address] Dianna Alcocer WBC 4.3 103/ul Normal 4.0-11.0 [facility] Comment on above: Performed By: #### C MADM, BNP, CMP #### [facility] [address] [address] [address] HEAD WO CONon [...] COLLIN COLEMAN Date: 2022-08-23 11:05 Normal [facility] CULTURE URINEon 08-23-2022 CULTURE URINE Culture Observations : No growth Normal [facility] Comment on above: Performed By: #### C MADM, BNP, CMP #### [facility] [address] [address] [address] Dianna Alcocer ER URINE PROFILEon 2 Bilirubin Ql (U) Negative Normal NEGATIVE The [facility] Comment on above: Performed By: #### C MADM, BNP, CMP #### [facility] [address] [address] [address] Dianna Alcocer Clarity (U) SL CLOUDY Abnormal CLEAR [facility] Comment on above: Performed By: #### C MADM, BNP, CMP #### [facility] [address] [place] [address] Dr. Dianna Alcocer Color (U) LT. YELLOW Normal YELLOW [facility] Comment on above: Performed By: #### C RAMANDEEPM, BNP, CMP #### [facility] [address] [place] [address] Dr. Dianna Alcocer ERULYNNETTE A micrscopic examination will be performed if indicated. Normal [facility] Comment on above: Performed By: #### C MADM, BNP, CMP #### [facility] [address] [address] [address] Dianna Alcocer Glucose Ql (U) Negative Normal NEGATIVE The [place] Comment on above: Performed By: #### C MADM, BNP, CMP #### [facility] [address] [address] [address] Dianna Alcocer Hemoglobin Ql (U) LARGE Abnormal NEGATIVE [facility] Comment on above: Performed By: #### C MADM, BNP, CMP #### [facility] [address] [address] [address] Dianna Alcocer Ketones Ql (U) Negative Normal NEGATIVE The [place] Comment on above: Performed By: #### C MADM, BNP, CMP #### [facility] [address] [address] [address] Dianna Alcocer LEUKOCYTES SMALL Abnormal NEGATIVE [facility] Comment on above: Performed By: #### C MADM, BNP, CMP #### [facility] [address] [address] [address] Dianna Alcocer Nitrite Ql (U) Negative Normal NEGATIVE [facility] Comment on above: Performed By: #### C MADM, BNP, CMP #### [facility] [address] [address] [address] Dianna Alcocer pH (U) 6.0 [pH] Normal 5-9 [facility] Comment on above: Performed By: #### C MADM, BNP, CMP #### [facility] [address] [place] [address] Dr. Dianna Alcocer SPEC GRAVITY 1.020 Normal 1.005-<=1.025 [facility] Comment on above: Performed By: #### C MADM, BNP, CMP #### [facility] [address] [address] [address] Dianna Alcocer UA PROTEIN Negative Normal NEGATIVE/ TRACE [facility] Comment on above: Performed By: #### C MADM, BNP, CMP #### [facility] [address] [address] [address] Dianna Alcocer UR MICRO IND INDICATED Normal [facility] Comment on above: Performed By: #### C MADM, BNP, CMP #### [facility] [address] [address] [address] Dianna Alcocer Urobilinogen Qn (U) 0.2 {Simone'U}/dL Normal 0.2 - 1. 0 [facility] Comment on above: Performed By: #### C MADM, BNP, CMP #### [facility] [address] [address] [address] Dianna Alcocer PROF 14(COMP METB)on 08-23- 022 Albumin [Mass/Vol] 4.2 g/dL Normal 3.4-5.0 [facility] Comment on above: Performed By: #### H STROPN, CMP #### [facility] [address] [address] [address] Dianna Alcocer Albumin/Globulin [Mass ratio] 1.4 {ratio} Normal [facility] Comment on above: Performed By: #### H STROPN, CMP #### [facility] [address] [address] [address] Dianna Alcocer ALP [Catalytic activity/Vol] 65 U/L Normal 46-116 [facility] Comment on above: Performed By: #### H STROPN, CMP #### [facility] [address] [place] [address] Dr. Dianna Alcocer ALT [Catalytic activity/Vol] 16 U/L Normal 14-59 [facility] Comment on above: Performed By: #### H STROPN, CMP #### [facility] [address] [place] [address] Dr. Dianna Alcocer Anion gap [Moles/Vol] 10.6 mmol/L Normal [facility] Comment on above: Performed By: #### H STROPN, CMP #### [facility] [address] [place] [address] Dr. Dianna Alcocer AST [Catalytic activity/Vol] 20 U/L Normal 15-37 [facility] Comment on above: Performed By: #### H STROPN, CMP #### [facility] [address] [address] [address] Dianna Alcocer Bilirubin [Mass/Vol] 0.7 mg/dL Normal 0.2-1.0 [facility] Comment on above: Performed By: #### H STROPN, CMP #### [facility] [address] [address] [address] Dianna Alcocer Calcium [Mass/Vol] 8.9 mg/dL Normal 8.5-10.1 [facility] Comment on above: Performed By: #### H STROPN, CMP #### [facility] [address] [address] [address] Dianna Alcocer Chloride [Moles/Vol] 101 mmol/L Normal 98-107 [facility] Comment on above: Performed By: #### H STROPN, CMP #### [facility] [address] [address] [address] Dianna Alcocer CO2 [Moles/Vol] 27.4 mmol/L Normal 21.0-32.0 [facility] Comment on above: Performed By: #### H STROPN, CMP #### [facility] [address] [address] [address] Dianna Alcocer Creatinine [Mass/Vol] 1.03 mg/dL Critically high 0.55-1.02 [facility] Comment on above: Performed By: #### H STROPN, CMP #### [facility] [address] [place] [address] Dr. Dianna Alcocer EGFR-AF GUAMANIAN >60 Normal >=60 [facility] Comment on above: Performed By: #### H STROPN, CMP #### [facility] [address] [address] [address] Dianna Alcocer EGFR-NON AF GUAMANIAN 51 mL/min/1.73m2 Critically low >=60 [facility] Comment on above: Performed By: #### H STROPN, CMP #### [facility] [address] [place] [address] Dr. Dianna Alcocer Globulin (S) [Mass/Vol] 3.1 g/dL Normal [facility] Comment on above: Performed By: #### H STROPN, CMP #### [facility] [address] [address] [address] Dianna Alcocer Glucose [Mass/Vol] 99 mg/dL Normal 74-106 [facility] Comment on above: Performed By: #### H STROPN, CMP #### [facility] [address] [address] [address] Dianna Alcocer Potassium [Moles/Vol] 4.0 mmol/L Normal 3.5-5.1 [facility] Comment on above: Performed By: #### H STROPN, CMP #### [facility] [address] [place] [address] Dr. Dianna Alcocer Protein [Mass/Vol] 7.3 g/dL Normal 6.4-8.2 [facility] Comment on above: Performed By: #### H HAVEN, CMP #### [facility] [address] [address] [address] Dianna Alcocer Sodium [Moles/Vol] 135 mmol/L Critically low 136-145 [facility] Comment on above: Performed By: #### H HAVEN, CMP #### [facility] [address] [place] [address] Dr. Dianna Alcocer Urea nitrogen [Mass/Vol] 8.0 mg/dL Normal 7.0-18.0 [facility] Comment on above: Performed By: #### H HAVEN, CMP #### [facility] [address] [place] [address] Dr. Dianna Alcocer Urea nitrogen/Creatinine [Mass ratio] 7.8 mg/mg Normal [facility] Comment on above: Performed By: #### H HAVEN, CMP #### [facility] [address] [place] [address] Dr. Dianna Alcocer TROPONIN, HIGH SENSITIVITYon 08-23-2022 HSTROP 8.5 pg/mL Normal 4.0-51.3 [facility] Comment on above: Result Comment: CUT- OFF POINTS HAVE BEEN ESTABLISHED BASED ON THE FOURTH UNIVERSAL DEFINITIONS OF MYOCARDIAL INFARCTION. THE UPPER REFERENCE LIMIT (URL) OF TROPONIN, DEFINED THE 99TH PERCENTILE OF cTnI DISTRIBUTION IN A REFERENCE POPULATION, HAS BEEN CONFIRMED THE DECISION THRESHOLD FOR [place] DIAGNOSIS. Performed By: #### H HAVEN, CMP #### [facility] [address] [place] [address] Dr. Dianna Alcocer URINE MICROSCOPIC ONLYon BACTERIA SMALL Abnormal NONE SEEN The [facility] Comment on above: Performed By: #### C MADM, BNP, CMP #### [facility] [address] [place] [address] Dr. Dianna Alcocer Bacteria identified Cx Nom (U) INDICATED Normal [facility] Comment on above: Performed By: #### C MADM, BNP, CMP #### [facility] [address] [place] [address] Dr. Dianna Alcocer CAST NONE SEEN Normal NONE SEEN [facility] Comment on above: Performed By: #### C MADM, BNP, CMP #### [facility] [address] [place] [address] Dr. Dianna Alcocer Crystals LM Nom (Urine sed) NONE SEEN Normal NONE SEEN [facility] Comment on above: Performed By: #### C MADM, BNP, CMP #### [facility] [address] [place] [address] Dr. Dianna Alcocer Epithelial cells LM Ql (Urine sed) FEW Abnormal NONE SEEN /RARE [facility] Comment on above: Performed By: #### C MADM, BNP, CMP #### [facility] [address] [place] [address] Dr. Dianna Alcocer MUCOUS NONE SEEN Normal NONE SEEN [facility] Comment on above: Performed By: #### C MADM, BNP, CMP #### [facility] [address] [place] [address] Dr. Dianna Alcocer RBC 0-2 Normal 0-2 [facility] Comment on above: Performed By: #### C MADM, BNP, CMP #### [facility] [address] [place] [address] Dr. Dianna Alcocer WBC 2-5 Abnormal NONE SEEN [facility] Comment on above: Performed By: #### C MADM, BNP, CMP #### [facility] [address] [place] [address] Dr. Dianna Alcocer XR CHEST 1 Von [...] SOTERO GOMEZ Date: 2022-08-23 10:29 Normal [facility] CULTURE URINEon 07-30-2022 CULTURE URINE Isolate 1 [...] Trimethoprim/Sulfameth oxazole <=20 S F Normal [facility] Comment on above: Performed By: #### C MADM, BNP, CMP #### [facility] [address] [place] [address] ABD/PELV W CONon [...] changes; grossly stable. Electronically authenticated by: LUZ BANKS Date: 2022-05-08 10:36 Normal [facility] PROF CHEM 8 (BAS METB)on Anion gap [Moles/Vol] 8.4 mmol/L Normal [facility] Comment on above: Performed By: #### C MADM, BNP, CMP #### [facility] [address] [address] [address] Dianna Alcocer Calcium [Mass/Vol] 8.9 mg/dL Normal 8.5-10.1 [facility] Comment on above: Performed By: #### C MADM, BNP, CMP #### [facility] [address] [address] [address] Dianna Alcocer Chloride [Moles/Vol] 103 mmol/L Normal 98-107 [facility] Comment on above: Performed By: #### C MADM, BNP, CMP #### [facility] [address] [address] [address] Dianna Alcocer CO2 [Moles/Vol] 28.7 mmol/L Normal 21.0-32.0 [facility] Comment on above: Performed By: #### C MADM, BNP, CMP #### [facility] [address] [address] [address] Dianna Alcocer Creatinine [Mass/Vol] 0.95 mg/dL Normal 0.55-1.02 [facility] Comment on above: Performed By: #### C MADM, BNP, CMP #### [facility] [address] [address] [address] Dianna Alcocer EGFR-AF GUAMANIAN >60 Normal >=60 [facility] Comment on above: Performed By: #### C MADM, BNP, CMP #### [facility] [address] [address] [address] Dianna Alcocer EGFR-NON AF GUAMANIAN 56 mL/min/1.73m2 Critically low >=60 [facility] Comment on above: Performed By: #### C MADM, BNP, CMP #### [facility] [address] [place] [address] Dr. Dianna Alcocer Glucose [Mass/Vol] 91 mg/dL Normal 74-106 [facility] Comment on above: Performed By: #### C MADM, BNP, CMP #### [facility] [address] [place] [address] Dr. Dianna Alcocer Potassium [Moles/Vol] 5.1 mmol/L Normal 3.5-5.1 [facility] Comment on above: Performed By: #### C MADM, BNP, CMP #### [facility] [address] [place] [address] Dr. Dianna Alcocer Sodium [Moles/Vol] 135 mmol/L Critically low 136-145 [facility] Comment on above: Performed By: #### C MADM, BNP, CMP #### [facility] [address] [place] [address] Dr. Dianna Alcocer Urea nitrogen [Mass/Vol] 13.0 mg/dL Normal 7.0-18.0 [facility] Comment on above: Performed By: #### C MADM, BNP, CMP #### [facility] [address] [place] [address] Dr. Dianna Alcocer Urea nitrogen/Creatinine [Mass ratio] 13.7 mg/mg Normal [facility] Comment on above: Performed By: #### C MADM, BNP, CMP #### [facility] [address] [place] [address] Dr. Dianna Alcocer MG MAMM DIAGNOSTIC 3D KIRT CA Don 02-09-2022 MG MAMM DIAGNOSTIC 3D KIRT CAD Patient: JOSEFA CASTILLO Exam Date: 02/09/2022 : 1940 Gender:F Ordering : DR TITO HILLMAN . Admission #: [id number] Family : Order #: [id number] CLICK HERE TO VIEW EXAM RADIOLOGY REPORT [...] prostate cancer at age 70. LOCATION: [facility] BREAST COMPOSITION: Almost entirely fatty. FINDINGS: DIAGNOSTIC [...] LUMP SHOULD BE BIOPSIED. Dictated by: Luz Banks M.D. on 02/09/2022 at 08:25 Approved by: Luz Banks M.D. on 02/09/2022 at 08:27 Normal [facility] Vital Signs Date Time Vital Sign Value Performing Clinician Windy khan 01-04-2025 11:33-0500 Body mass index (BMI) [Ratio] 19.35 kg/m2 Tito Hillman MD Work Phone: [facility] 01-04-2025 11:33-0500 Body temperature 97.2 [degF] Tito Hillman MD Work Phone: [facility] 01-04-2025 11:33-0500 Body weight 47.99 kg Tito Hillman MD Work Phone: [facility] 01-04-2025 11:33-0500 Diastolic blood pressure 58 mm[Hg] Tito Hillman MD Work Phone: [facility] 01-04-2025 11:33-0500 Heart rate 63 /min Tito Hillman MD Work Phone: [facility] 01-04-2025 11:33-0500 SaO2% (BldA) [Mass fraction] 98 % Tito Hillman MD Work Phone: [facility] 01-04-2025 11:33-0500 Systolic blood pressure 100 mm[Hg] Tito Hillman MD Work Phone: [facility] 10-11-2024 11:30-0500 Body height 157.5 cm Tito Hillman MD Work Phone: [facility] 10-11-2024 11:30-0500 Body mass index (BMI) [Ratio] 19.39 kg/m2 Tito Hillman MD Work Phone: [facility] 10-11-2024 11:30-0500 Body temperature 96.4 [degF] Tito Hillman MD Work Phone: [facility] 10-11-2024 11:30-0500 Body weight 48.08 kg Tito Hillman MD Work Phone: [facility] 10-11-2024 11:30-0500 Diastolic blood pressure 78 mm[Hg] Tito Hillman MD Work Phone: [facility] 10-11-2024 11:30-0500 Heart rate 58 /min Tito Hillman MD Work Phone: [facility] 10-11-2024 11:30-0500 Respiratory rate 20 /min Tito Hillman MD Work Phone: [facility] 10-11-2024 11:30-0500 SaO2% (BldA) [Mass fraction] 97 % Tito Hillman MD Work Phone: [facility] 10-11-2024 11:30-0500 Systolic blood pressure 130 mm[Hg] Tito Hillman MD Work Phone: [facility] 08-03-2024 10:33-0400 Body height 157.5 cm Tito Hillman MD Work Phone: [facility] 08-03-2024 10:33-0400 Body mass index (BMI) [Ratio] 20.12 kg/m2 Tito Hillman MD Work Phone: [facility] 08-03-2024 10:33-0400 Body temperature 96.6 [degF] Tito Hillman MD Work Phone: [facility] 08-03-2024 10:33-0400 Body weight 49.9 kg Tito Hillman MD Work Phone: [facility] 08-03-2024 10:33-0400 Diastolic blood pressure 60 mm[Hg] Tito Hillman MD Work Phone: [facility] 08-03-2024 10:33-0400 Heart rate 53 /min Tito Hillman MD Work Phone: [facility] 08-03-2024 10:33-0400 Respiratory rate 18 /min Tito Hillman MD Work Phone: [facility] 08-03-2024 10:33-0400 SaO2% (BldA) [Mass fraction] 98 % Tito Hillman MD Work Phone: [facility] 08-03-2024 10:33-0400 Systolic blood pressure 136 mm[Hg] Tito Hillman MD Work Phone: [facility] 07-06-2024 15:46-0400 Body height 157.5 cm Tito Hillman MD Work Phone: [facility] 07-06-2024 15:46-0400 Body mass index (BMI) [Ratio] 20.67 kg/m2 Tito Hillman MD Work Phone: [facility] 07-06-2024 15:46-0400 Body temperature 97.11 [degF] Tito Hillman MD Work Phone: [facility] 07-06-2024 15:46-0400 Body weight 51.26 kg Tito Hillman MD Work Phone: [facility] 07-06-2024 15:46-0400 Diastolic blood pressure 50 mm[Hg] Tito Hillman MD Work Phone: [facility] 07-06-2024 15:46-0400 Heart rate 70 /min Tito Hillman MD Work Phone: [facility] 07-06-2024 15:46-0400 Respiratory rate 20 /min Tito Hillman MD Work Phone: [facility] 07-06-2024 15:46-0400 SaO2% (BldA) [Mass fraction] 98 % Tito Hillman MD Work Phone: [facility] 07-06-2024 15:46-0400 Systolic blood pressure 106 mm[Hg] Tito Hillman MD Work Phone: [facility] 12-01-2023 13:06-0500 Body height 157.5 cm Jr. Stepanic DO Work Phone: [facility] 12-01-2023 13:06-0500 Body mass index (BMI) [Ratio] 19.94 kg/m2 Jr. Stepanic DO Work Phone: [facility] 12-01-2023 13:06-0500 Body weight 49.44 kg Jr. Stepanic DO Work Phone: [facility] 07-29-2023 10:04-0400 Body temperature 97.3 [degF] Rod Roman MD Work Phone: [facility] 07-29-2023 10:04-0400 Body weight 56.97 kg Rod Roman MD Work Phone: [facility] 07-29-2023 10:04-0400 Diastolic blood pressure 71 mm[Hg] Rod Roman MD Work Phone: [facility] 07-29-2023 10:04-0400 Heart rate 63 /min Rod Roman MD Work Phone: [facility] 07-29-2023 10:04-0400 Respiratory rate 16 /min Rod Roman MD Work Phone: [facility] 07-29-2023 10:04-0400 SaO2% (BldA) [Mass fraction] 97 % Rod Roman MD Work Phone: [facility] 07-29-2023 10:04-0400 Systolic blood pressure 175 mm[Hg] Rod Roman MD Work Phone: [facility] 04-08-2023 10:14-0400 Body height 157.5 cm Rod Roman MD Work Phone: [facility] 04-08-2023 10:140400 Body temperature 97.81 [degF] Rod Roman MD Work Phone: [facility] 04-08-2023 10:14-0400 Body weight 56.7 kg Rod Roman MD Work Phone: [facility] 04-08-2023 10:14-0400 Diastolic blood pressure 74 mm[Hg] Rod Roman MD Work Phone: [facility] 04-08-2023 10:14-0400 Heart rate 77 /min Rod Roman MD Work Phone: [facility] 04-08-2023 10:14-0400 Respiratory rate 16 /min Rod Roman MD Work Phone: [facility] 04-08-2023 10:14-0400 SaO2% (BldA) [Mass fraction] 99 % Rod Roman MD Work Phone: [facility] 04-08-2023 10:14-0400 Systolic blood pressure 161 mm[Hg] Rod Roman MD Work Phone: [facility] 12-17-2022 10:29-0500 Body height 157.5 cm Rod Roman MD Work Phone: [facility] 12-17-2022 10:29-0500 Body temperature 97.5 [degF] Rod Roman MD Work Phone: [facility] 12-17-2022 10:29-0500 Body weight 55.97 kg Rod Roman MD Work Phone: [facility] 12-17-2022 10:29-0500 Diastolic blood pressure 81 mm[Hg] Rod Roman MD Work Phone: [facility] 12-17-2022 10:29-0500 Heart rate 66 /min Rod Roman MD Work Phone: [facility] 12-17-2022 10:29-0500 Respiratory rate 16 /min Rod Roman MD Work Phone: [facility] 12-17-2022 10:29-0500 SaO2% (BldA) [Mass fraction] 97 % Rod Roman MD Work Phone: [facility] 12-17-2022 10:29-0500 Systolic blood pressure 159 mm[Hg] Rod Roman MD Work Phone: [facility] 07-30-2022 09:55-0400 Body height 157.5 cm Rod Roman MD Work Phone: [facility] 07-30-2022 09:55-0400 Body temperature 97.59 [degF] Rod Roman MD Work Phone: [facility] 07-30-2022 09:55-0400 Body weight 58.06 kg Rod Roman MD Work Phone: [facility] 07-30-2022 09:55-0400 Diastolic blood pressure 71 mm[Hg] Rod Roman MD Work Phone: [facility] 07-30-2022 09:55-0400 Heart rate 70 /min Rod Roman MD Work Phone: [facility] 07-30-2022 09:55-0400 Respiratory rate 16 /min Rod Roman MD Work Phone: [facility] 07-30-2022 09:55-0400 SaO2% (BldA) [Mass fraction] 98 % Rod Roman MD Work Phone: [facility] 07-30-2022 09:55-0400 Systolic blood pressure 153 mm[Hg] Rod Roman MD Work Phone: [facility] 04-30-2022 11:26-0400 Body temperature 97.11 [degF] Ma Sand Work Phone: [facility] 04-30-2022 11:26-0400 Diastolic blood pressure 56 mm[Hg] Ma Sand Work Phone: [facility] 04-30-2022 11:26-0400 Heart rate 68 /min Ma Sand Work Phone: [facility] 04-30-2022 11:26-0400 Respiratory rate 16 /min Ma Sand Work Phone: [facility] 04-30-2022 11:26-0400 SaO2% (BldA) [Mass fraction] 98 % Ma Sand Work Phone: [facility] 04-30-2022 11:26-0400 Systolic blood pressure 113 mm[Hg] Ma Sand Work Phone: [facility] 04-02-2022 11:24-0400 Body height 158.1 cm Ma Sand Work Phone: [facility] 04-02-2022 11:24-0400 Body temperature 97.9 [degF] Ma Sand Work Phone: [facility] 04-02-2022 11:24-0400 Body weight 58.51 kg Ma Sand Work Phone: [facility] 04-02-2022 11:24-0400 Diastolic blood pressure 52 mm[Hg] Ma Sand Work Phone: [facility] 04-02-2022 11:24-0400 Heart rate 66 /min Ma Sand Work Phone: [facility] 04-02-2022 11:24-0400 Respiratory rate 16 /min Martha Rizvi Work Phone: [facility] 04-02-2022 11:24-0400 SaO2% (BldA) [Mass fraction] 97 % Martha Rizvi Work Phone: [facility] 04-02-2022 11:24-0400 Systolic blood pressure 119 mm[Hg] Martha Rizvi Work Phone: [facility] 03-05-2022 10:58-0400 Body height 158.1 cm Rod Roman MD Work Phone: [facility] 03-05-2022 10:58-0400 Body temperature 97.81 [degF] Rod Roman MD Work Phone: [facility] 03-05-2022 10:58-0400 Body weight 58.79 kg Rod Roman MD Work Phone: [facility] 03-05-2022 10:58-0400 Diastolic blood pressure 87 mm[Hg] Rod Roman MD Work Phone: [facility] 03-05-2022 10:58-0400 Heart rate 64 /min Rod Roman MD Work Phone: [facility] 03-05-2022 10:58-0400 Respiratory rate 16 /min Rod Roman MD Work Phone: [facility] 03-05-2022 10:58-0400 SaO2% (BldA) [Mass fraction] 98 % Rod Roman MD Work Phone: [facility] 03-05-2022 10:58-0400 Systolic blood pressure 178 mm[Hg] Rod Roman MD Work Phone: [facility] Encounters Encounter Date Encounter Type Care Provider Facility Start: 01-04-2025 End: 01-04-2025 Bamboo flowsheet Tito Hillman MD Work Phone: [facility] Start: 01-04-2025 End: 01-04-2025 Bamboo flowsheet Tito Hillman MD Work Phone: [facility] Start: 01-04-2025 End: 01-04-2025 Office outpatient visit 25 minutes Tito Hillman MD Work Phone: [facility] Comment on above: Chest pain, unspecif ied type (Primary Dx); Breast mass in female; CAD in gakona artery (CMS/HCC); Gastroesophageal reflux disease without esophagitis Start: 01-04-2025 End: 01-04-2025 ambulatory TITO HILLMAN Not Available Start: 01-01-2025 End: 01-01-2025 Refill Tito Hillman MD Work Phone: [facility] Comment on above: Migraine without aur a, not intractable, without status migrainosus (CMS/HCC); DDD (degenerative disc disease), lumbar Start: 12-15-2024 End: 12-15-2024 Refill Tito Hillman MD Work Phone: [facility] Comment on above: Migraine without aur a, not intractable, without status migrainosus (CMS/HCC) Start: 12-04-2024 End: 12-04-2024 Refill Tito Hillman MD Work Phone: [facility] Comment on above: Lumbar spondylosis; DDD (degenerative disc disease), lumbar Start: 11-14-2024 End: 11-14-2024 Clinisync Result Encounter Generic External Data Provider [facility] Unsolicited Start: 11-14-2024 End: 11-14-2024 Clinisync Result Encounter Generic External Data Provider [facility] External Department Unsolicited Start: 10-30-2024 End: 10-30-2024 Refill Tito Hillman MD Work Phone: [facility] Comment on above: DDD (degenerative di sc disease), lumbar Start: 10-19-2024 End: 10-19-2024 Refill Susan Waller [facility] Comment on above: Migraine without aur [...] aur a, not intractable, without status migrainosus ([facility] Start: 08-29-2024 End: 08-29-2024 Clinisync Result Encounter [...] sc disease), lumbar Start: 06-30-2024 ambulatory [facility] Start: 06-28-2024 End: 06-30-2024 Emergency department patient visit [facility] Start: 06-28-2024 ambulatory [facility] Start: 04-10-2024 Telephone encounter Rod bird MD Work Phone: Hematology/Oncology Comment on above: Records faxed Start: 04-04-2024 Telephone encounter Rod bird MD Work Phone: Hematology/Oncology Comment on above: Lab Orders Start: 02-21-2024 End: 02-21-2024 ambulatory ARISTEO [facility] Start: 01-24-2024 End: 01-24-2024 ambulatory TITO HILLMAN Not Available Start: 01-05-2024 End: 01-05-2024 ambulatory ARISTEO [facility] Start: 12-15-2023 End: 12-22-2023 Evaluation and management of inpatient MICHAEL CONNOR [facility] Start: 12-01-2023 End: 12-01-2023 Office outpatient visit 25 minutes Jr. 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] encounter procedure Rod Roman MD Work Phone: [place] Start: 07-28-2022 End: 07-28-[address] TITO [...] Nursing evaluation of patient and report Martha Maloneevelio Rizvi Work Phone: Hematology/Oncology Comment on above: 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) Start: 03-05-2022 End: 03-05-2022 ambulatory Rod Roman MD Work Phone: Hematology/Oncology Comment on above: Essential thrombocyt hemia (HCC) (Primary Dx); Megaloblastic anemia due to vitamin B12 deficiency; Osteopenia of multiple sites Start: 03-05-2022 End: 03-05-2022 Patient encounter procedure Rod Roman MD Work Phone: [place] Start: 02-09-2022 End: 02-10-[address] TITO HILLMAN Facility: Start: 10-31-2018 End: 11-12-2018 Patient encounter procedure DESTINEE SMART Facility:[facility] Procedures Date Procedure Procedure Detail Performing Clinician Start: 11-14-2024 ALL C REACTIVE PROTEIN Generic External Data Provider Start: 11-14-2024 ALL LDH Generic Ex ternal Data Provider Start: 11-14-2024 CC CMP (CMP) (FOR [facility] USE) Generic External Data Provider Start: 08-29-2024 ALL CBC WITH AUTO DIFF Generic External Data Provider Start: 08-29-2024 RETICULOCYTE PCT AUTO G eneric External Data Provider Start: 07-14-2024 ALL LDH Generic Ex ternal Data Provider Start: 07-14-2024 CC CMP (CMP) (FOR [facility] USE) Generic External Data Provider Plan of Treatment Date Care Activity Detail Author Start: 07-29-2026 Diabetes Screening Diabetes Screenin g [facility] Start: 04-08-2026 DIABETES SCREEN DIABETES SCREEN [facility] Start: 12-17-2025 DIABETES SCREEN DIABETES SCREEN [facility] Start: 10-11-2025 Medicare Annual Wellness (AWV) Medicare Annual Wellness (AWV) [facility] Start: 07-30-2025 DIABETES SCREEN DIABETES SCREEN [facility] Start: 04-30-2025 DIABETES SCREEN [facility]CREEN [facility] Start: 04-11-2025 End: 04-11-2025 Patient encounter procedure 04/11/2025 10:15 AM EDT Office Visit [facility] [address] [place] [address] Tito Hillman MD [address] [place] [address] [facility] Start: 04-02-2025 DIABETES SCREEN DIABETES SCREEN [facility] Start: 03-05-2025 DIABETES SCREEN [facility]CREEN [facility] Start: 01-04-2025 End: 03-06-2026 DBT Breast - bilateral diagnostic Bilateral diagnostic mammogram with tomosynthesis Imaging Routine Breast mass in female Expected: 01/04/2025, Expires: 03/06/2026 [facility] Work Phone: Comment on above: Expected: 01/04/2025 , Expires: 03/06/2026 Start: 01-04-2025 End: 01-04-2027 NM Heart Perfusion W single state of exercise Stress test with myocardial perfusion Cardiac Nuclear Medicine Routine Chest pain, unspecified type CAD in g[place] artery ([facility]/HCC) Expected: 01/04/2025 (Approximate), Expires: 01/04/2027 [facility] Comment on above: Expected: 01/04/2025 (Approximate), Expires: 01/04/2027 Start: 01-04-2025 End: 03-06-2026 US Breast - bilateral limited Bilateral breast US limited Imaging Routine Breast mass in female Expected: 01/04/2025, Expires: 03/06/2026 [facility] Comment on above: Expected: 01/04/2025 , Expires: 03/06/2026 Start: 01-04-2025 End: 01-04-2025 Patient encounter procedure [facility] Comment on above: Arrived Start: 10-11-2024 End: 10-11-2024 Patient encounter procedure [facility] Comment on above: Arrived Start: 10-09-2024 End: 10-09-2024 Patient encounter procedure 10/09/2024 1:30 PM EST Office Visit [facility] [address] [place] [address] Tito Hillman MD [address] [place] [address] [facility] Start: 08-03-2024 End: 08-03-2024 Patient encounter procedure [facility] Comment on above: Arrived Start: 07-06-2024 End: 07-06-2024 Patient encounter procedure [facility] Comment on above: Arrived Start: 07-02-2024 Influenza vaccination C [facility] Start: 04-17-2024 End: 04-04-2025 CBC W Auto Differential panel - Blood COMPLETE BLOOD COUNT AND DIFFERENTIAL Lab Routine 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 Expected: 04/17/2024 (Approximate), Expires: 04/04/2025 [facility] Comment on above: Expected: 04/17/2024 (Approximate), Expires: 04/04/2025 Start: 04-17-2024 End: 04-04-2025 Comprehensive metabolic 2000 panel - Serum or Plasma COMPREHENSIVE METABOLIC PANEL Lab Routine 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 Expected: 04/17/2024 (Approximate), Expires: 04/04/2025 [facility] Comment on above: Expected: 04/17/2024 (Approximate), Expires: 04/04/2025 Start: 04-17-2024 End: 04-04-2025 Lactate dehydrogenase [Enzymatic activity/volume] in Serum or Plasma LACTATE DEHYDROGENASE Lab Routine 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 Expected: 04/17/2024 (Approximate), Expires: 04/04/2025 [facility] Work Phone: Comment on above: Expected: 04/17/2024 (Approximate), Expires: 04/04/2025 Start: 04-17-2024 End: 04-17-2024 Follow-up encounter 04/17/2024 11:15 AM EDT Visit (SP) Office Hematology/Oncology [address] [place] [address] Rod Roman MD [address] [place] [address] follow up Hematology/Oncology Comment on above: follow up Start: 04-17-2024 End: 04-17-2024 Patient encounter procedure 04/17/2024 11:00 AM EDT Office Visit [facility] [address] [place] [address] lab [facility] Comment on above: lab Start: 01-24-2024 End: 01-24-2024 Patient encounter procedure 01/24/2024 10:15 AM EDT [facility] [address] [place] [address] Tito Hillman MD [address] [place] [address] [facility] Start: 11-18-2023 End: 07-29-2024 CBC W Auto Differential panel - Blood CBC + DIFF Lab Routine 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 (HCC) Expected: 11/18/2023 (Approximate), Expires: 07/29/2024 [facility] Work Phone: Comment on above: Expected: 11/18/2023 (Approximate), Expires: 07/29/2024 Start: 11-18-2023 End: 07-29-2024 Cobalamin (Vitamin B12) [Mass/volume] in Serum or Plasma VITAMIN B12 BLOOD Lab Routine 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 (HCC) Expected: 11/18/2023 (Approximate), Expires: 07/29/2024 [facility] Work Phone: Comment on above: Expected: 11/18/2023 (Approximate), Expires: 07/29/2024 Start: 11-18-2023 End: 07-29-2024 Comprehensive metabolic 2000 panel - Serum or Plasma COMP METABOLIC PANEL Lab Routine 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 (HCC) Expected: 11/18/2023 (Approximate), Expires: 07/29/2024 [facility] Work Phone: Comment on above: Expected: 11/18/2023 (Approximate), Expires: 07/29/2024 Start: 11-18-2023 End: 07-29-2024 Ferritin [Mass/volume] in Serum or Plasma FERRITIN BLD Lab Routine 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 (HCC) Expected: 11/18/2023 (Approximate), Expires: 07/29/2024 [facility] Work Phone: Comment on above: Expected: 11/18/2023 (Approximate), Expires: 07/29/2024 Start: 11-18-2023 End: 07-29-2024 Folate [Mass/volume] in Serum or Plasma FOLATE SERUM Lab Routine 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 (HCC) Expected: 11/18/2023 (Approximate), Expires: 07/29/2024 [facility] Work Phone: Comment on above: Expected: 11/18/2023 (Approximate), Expires: 07/29/2024 Start: 11-18-2023 End: 07-29-2024 Iron and Iron binding capacity panel - Serum or Plasma IRON + TIBC Lab Routine 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 (HCC) Expected: 11/18/2023 (Approximate), Expires: 07/29/2024 [facility] Work Phone: Comment on above: Expected: 11/18/2023 (Approximate), Expires: 07/29/2024 Start: 11-01-2023 Advance Directive Discussion Advance Directive Discussion [facility] Start: 11-01-2023 Behavioral Health Screening Behavioral Health Screening [facility] Start: 09-23-2023 End: 07-29-2024 CBC W Auto Differential panel - Blood CBC + DIFF Lab Routine 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 (HCC) Expected: 09/23/2023 (Approximate), Expires: 07/29/2024 [facility] Work Phone: Comment on above: Expected: 09/23/2023 (Approximate), Expires: 07/29/2024 Start: 09-23-2023 End: 07-29-2024 Cobalamin (Vitamin B12) [Mass/volume] in Serum or Plasma VITAMIN B12 BLOOD Lab Routine 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 (HCC) Expected: 09/23/2023 (Approximate), Expires: 07/29/2024 [facility] Work Phone: Comment on above: Expected: 09/23/2023 (Approximate), Expires: 07/29/2024 Start: 09-23-2023 End: 07-29-2024 Comprehensive metabolic 2000 panel - Serum or Plasma COMP METABOLIC PANEL Lab Routine 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 (HCC) Expected: 09/23/2023 (Approximate), Expires: 07/29/2024 [facility] Work Phone: Comment on above: Expected: 09/23/2023 (Approximate), Expires: 07/29/2024 Start: 09-23-2023 End: 07-29-2024 Ferritin [Mass/volume] in Serum or Plasma FERRITIN BLD Lab Routine 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 (HCC) Expected: 09/23/2023 (Approximate), Expires: 07/29/2024 [facility] Work Phone: Comment on above: Expected: 09/23/2023 (Approximate), Expires: 07/29/2024 Start: 09-23-2023 End: 07-29-2024 Folate [Mass/volume] in Serum or Plasma FOLATE SERUM Lab Routine 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 (HCC) Expected: 09/23/2023 (Approximate), Expires: 07/29/2024 [facility] Work Phone: Comment on above: Expected: 09/23/2023 (Approximate), Expires: 07/29/2024 Start: 09-23-2023 End: 07-29-2024 Iron and Iron binding capacity panel - Serum or Plasma IRON + TIBC Lab Routine 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 (HCC) Expected: 09/23/2023 (Approximate), Expires: 07/29/2024 [facility] Work Phone: Comment on above: Expected: 09/23/2023 (Approximate), Expires: 07/29/2024 Start: 07-02-2023 Covid-19 Vaccine () Covid-19 Vaccine ( season) [facility] Start: 07-02-2023 Influenza vaccination Influenza Vacc ine (#1) [facility] Start: 12-19-2022 Covid-19 Vaccine (6 - Pfizer series) Covid-19 Vaccine (6 - Pfizer series) [facility] Start: 11-01-2022 ADVANCE DIRECTIVE DISCUSSION ADVANCE DIRECTIVE DISCUSSION [facility] Start: 11-01-2022 DEPRESSION ASSESSMENT DEPRESSION ASS ESSMENT [facility] Start: 07-18-2022 COVID-19 VACCINE (5 - Booster for Pfizer series) COVID-19 VACCINE (5 - Booster for Pfizer series) [facility] Start: 07-02-2022 Influenza vaccination INFLUENZA (#1) [facility] Start: 05-28-2022 End: 07-28-2022 VITAMIN B12 BLOOD VITAMIN B12 BLOOD Lab Routine 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 Osteopenia of multiple sites Expected: 05/28/2022 (Approximate), Expires: 07/28/2022 [facility] Work Phone: Comment on above: Expected: 05/28/2022 (Approximate), Expires: 07/28/2022 Start: 12-28-2021 COVID-19 VACCINE (4 - Booster for Pfizer series) COVID-19 VACCINE (4 - Booster for Pfizer series) [facility] Start: 11-01-2021 ADVANCE DIRECTIVE DISCUSSION ADVANCE DIRECTIVE DISCUSSION [facility] Start: 11-01-2021 DEPRESSION ASSESSMENT DEPRESSION ASS ESSMENT [facility] Start: 2005 BONE DENSITY BONE DENSITY [facility] Start: 2005 Bone Density Screening Bone Density Screening [facility] Start: 2005 Screening for osteoporosis Bone Density Screening [facility] Start: 2000 RSV Vaccine (1 - 1-d ose 60+ series) RSV Vaccine (1 - 1-dose 60+ series) [facility] Start: 1990 SHINGRIX VACCINE (1 of 2) SHINGRIX VACCINE (1 of 2) [facility] Start: 1959 Urine microalbumin profile [facility] Start: 1940 Medicare Annual Wellness (AWV) Medicare Annual Wellness (AWV) [facility] XR Hip - left 3 Views XR hip lef t 2 or 3 views Imaging Routine Left hip pain 12/01/2023 1:10 PM EST [facility] Work Phone: [facility] Immunizations Immunization Date Immunization Notes Care Provider [facility] 08-18-2022 influenza, high-dose , quadrivalent vaccine (FLUZONE HIGH DOSE QUADRIVALENT) Rod Roman MD Work Phone: [facility] 08-18-2022 influenza virus vacc ine, unspecified formulation Rod Roman MD Work Phone: [facility] 08-06-2021 influenza, high-dose , quadrivalent vaccine (FLUZONE HIGH DOSE QUADRIVALENT) Rod Roman MD Work Phone: [facility] 12-31-2020 COVID-19 vaccine, ag e 12+ yr (PFIZER-BIONTECH - PURPLE TOP) Rod Roman MD Work Phone: [facility] 11-30-2020 COVID-19 vaccine, ag e 12+ yr (PFIZER-BIONTECH - PURPLE TOP) Rod Roman MD Work Phone: [facility] 08-19-2020 influenza, high-dose , quadrivalent vaccine (FLUZONE HIGH DOSE QUADRIVALENT) Rod Roman MD Work Phone: [facility] 09-09-2019 influenza, high dose seasonal, preservative-free Rod Roman MD Work Phone: [facility] 07-12-2018 influenza, high dose seasonal, preservative-free Rod Roman MD Work Phone: [facility] 09-25-2017 influenza, high dose seasonal, preservative-free Rod Roman MD Work Phone: [facility] 08-12-2016 influenza, injectabl e, quadrivalent, preservative free Rod Roman MD Work Phone: [facility] 08-12-2016 pneumococcal polysaccharide vaccine, 23 valent Rod Roman MD Work Phone: [facility] 07-11-2016 influenza, high dose seasonal, preservative-free Rod Roman MD Work Phone: [facility] 06-15-2015 influenza, high dose seasonal, preservative-free Rod Roman MD Work Phone: [facility] 06-15-2015 pneumococcal conjuga te vaccine, 13 valent Rod Roman MD Work Phone: [facility] 08-08-2014 influenza virus vacc ine, whole virus Rod Roman MD Work Phone: [facility] 07-12-2010 pneumococcal conjuga te vaccine, 7 valent Rod Roman MD Work Phone: [facility] Payers Date Payer Category Payer Other GENERIC OTHER Nm mber TIM KOENIG [id number] 2005 Medicare MEDICARE MEDICAR E A AND B [id number] 2005-Present [phone] [address] [address] [place] [address] Medicare [id number] 2005 Medicare [id number] 2005 Unknown HOSPITAL/MEDICAL GENERIC MEDICAL GENERIC [id number] 2005-Present [phone] [address] [address] [place] [address] Indemnity [id number] 2005 Unknown [id number] 1959 Medicare [id number] 1959 Unknown [id number] 1940 Unknown [id number] [id number] 1940 Unknown [id number] [id number] 1940 Unknown [id number] 2.16.840.1.712977.3.579.2.593 1940 Unknown [id number] 2.16.840.1.155674.3.579.2.593 1940 Unknown [id number] 2.16.840.1.402999.3.579.2.593 1940 Unknown [id number] 2.16.840.1.683793.3.579.2.593 1940 Unknown [id number] 2.16.840.1.627606.3.579.2.593 1940 Unknown [id number] 2.16.840.1.289450.3.579.2.593 1940 Unknown [id number] 2.16.840.1.495218.3.579.2.175 1940 Unknown [id number] 2.16.840.1.988738.3.579.2.175 1940 Unknown [id number] 2.16.840.1.452103.3.579.2.175 1940 Unknown [id number] 2.16.840.1.176139.3.579.2.128 6 1940 Unknown [id number] 2.16.840.1.060592.3.579.2.128 6 1940 Unknown [id number] 2.16.840.1.939123.3.579.2.128 6 1940 Unknown [id number] 2.16.840.1.473281.3.579.2.128 6 1940 Unknown [id number] 2.16.840.1.815666.3.579.2.125 9 1940 Unknown [id number] 2.16.840.1.739348.3.579.2.125 9 1940 Unknown [id number] 2.16.840.1.115137.3.579.2.125 9 1940 Unknown [id number] 2.16.840.1.571733.3.579.2.125 9 1940 Unknown [id number] 9 Medicare [id number] Social History Date Type Detail Facility Start: 11-11-2020 End: 10-15-2023 Tobacco smoking status NHIS Ex-smoker [facility] Start: 12-30-2009 End: 08-01-2020 History of tobacco use Current smoker [facility] Start: 11-11-2020 End: 10-11-2024 Cigarettes smoked current (pack per day) - Reported 1 [facility] Start: 11-11-2020 Tobacco use and exposure Smoke less tobacco non-user [facility] Start: 03-05-2022 End: 04-08-2023 Alcohol intake Current drinker of alcohol (finding) [facility] Start: 1940 Sex Assigned At Not on file C [facility] Start: 02-23-2022 End: 07-30-2022 Exposure to SARS-CoV-2 (event) Not sure [facility] Start: 12-30-2009 End: 08-01-2020 History of tobacco use Cigarette Smoker [facility] Start: 04-08-2023 End: 10-11-2024 Tobacco use panel [facility] Adult Depression Scr eening Assessment 0 [facility] Clinical Notes 01-30-2022 to 01-04-2025 Tito Hillman MD - 01/04/2025 12:23 PM Marni Hillman MD - 01/04/2025 12:22 PM Marni Hillman MD - 01/04/2025 12:22 PM Marni Hillman MD - 01/04/2025 12:22 PM ESTPatient Instructions Note Date & Type Note Facility 01-04-2025 History of Presen t illness Narrative Associated Problem(s): Gastroesophageal reflux disease without esophagitis Symptoms worse and start omeprazole. Associated Problem(s): Chest pain Unclear cause of pain and history of CAD. Check stress test. Associated Problem(s): CAD in [place] artery (CMS/HCC) Pain for months and stents in 2007. Check stress test. Associated Problem(s): Breast mass in female Mass for months and check mammogram and US. Images from the original note were not included. Subjective Patient ID: Josefa [place] is a 84 y.o. female who presents for Follow-up. ER follow up from 12/23 for chest pain. Developed pain in mid chest and across chest. Pain up to left axilla. Day prior developed nausea and emesis. C/o pain and pressure in chest. No SOB or palpitations. History of CAD with stents in 2007. Last stress test March 2021. Continues to have pain off and on. Also reports lumps in both breasts for several months. Notice lumps in axillae and concerned of breast cancer. GERD worse and pepcid no longer controlling. Review of Systems Respiratory: Negative for cough, [...] Assessment/Plan Problem List Items Addressed This Visit CAD in [place] artery (CMS/HCC) Pain for months and stents in 2007. Check stress test. Relevant Orders Stress test with myocardial perfusion Gastroesophageal reflux disease without esophagitis Symptoms worse and start omeprazole. Relevant Medications omeprazole (PriLOSEC) [address] capsule Chest pain - Primary Unclear cause of pain and history of CAD. Check stress test. Relevant Orders Stress test with myocardial perfusion Breast mass in female Mass for months and check mammogram and US. Relevant Orders Bilateral diagnostic mammogram with tomosynthesis Bilateral breast US limited documented in this encounter [facility] 10-11-2024 History of Presen t illness Narrative [...] not to smoke. documented in this encounter [facility] 08-03-2024 History of Presen t illness Narrative [...] 50 MG tablet documented in this encounter [facility] 07-06-2024 History of Presen t illness Narrative [...] 83 y.o. female who presents for Follow-up (/[facility] f/up). Hospital follow up from 06/28-06/29 for [...] MG tablet topiramate (Topamax) 25 MG tablet [id number]-mpnbnprnggkev-xewhvo ne 50-325-40 MG tablet Overflow incontinence of urine C/o incontinence and try medication. Relevant Medications oxybutynin XL (Ditropan XL) 10 MG 24 hr tablet Vision changes Continued vision changes and follow with new eye doctor. documented in this encounter [facility] 04-10-2024 Telephone encounter Note Records faxed to Dr. Stark at [place]. [facility] 04-10-2024 Miscellaneous Notes Records faxed to Dr. Stark at [place]. documented in this encounter [facility] 04-04-2024 Telephone encounter Note Patient has an appt on 04/17/24. Would you like labs-her labs are , please place orders. Janeth Pelletier MA [facility] 04-04-2024 Miscellaneous Notes Patient has an appt on 04/17/24. Would you like labs-her labs are , please place orders. Janeth Pelletier MA documented in this encounter [facility] 12-01-2023 History of Presen t illness Narrative Images from the original note were not included. HISTORY OF PRESENT ILLNESS: EST PT Josefa Castillo is an 83 y.o. @ female. (EST PT; MOST RECENT VISIT WITH ALEXANDREA) S/P (L) HIP FX W/ ORIF 08/26/23 (13WKS 6DAY) @ [facility] - PT C/O PAIN XRAY LT [...] 100 mg, Oral, 2 times daily HYDROcodone-acetaminophen ([place]) 5-325 MG tablet 1 tablet, Oral, 4 [...] PAIN Ambulatory referral to Orthopaedic Surgery Dr. Ace / Dr. Gay ; Please call patient to schedule, thank you Evaluate and treat (L) hip Standing Status: Future Standing Expiration Date: 05/31/2024 Referral Priority: Routine Referral Type: Consultation Referral Reason: Specialty Services Required Referred to Provider: Aristeo Ace MD Requested Specialty: Orthopaedic Surgery Number of [...] recommending a referral to Dr. Christine in [place] with patient's verbal agreeance. We have discussed her HEP and restrictions and will see her back on a prn basis. Lupe Field MA documented in this encounter [facility] 07-29-2023 Instructions Rod Roman MD - 07/29/2023 10:45 AM EDT Labs to include B12 in 8 weeks. Labs every 8 weeks, CBC, CMP Continue current regimen of Hydrea 500 mg daily Wednesday - Wednesday but increase to 2 tablets (1000 mg) on Saturdays and Sundays) B12 Shot today and every 8 weeks. RTC in 16 weeks documented in this encounter [facility] 07-29-2023 History of Presen t illness Narrative Images from the original note were not included. NAME: Josefa Castillo CLINIC NO.: [id number] DATE OF SERVICE: July 29, 2023 (Carlos) Some elements in this clinic note that are critical to medical decision making have been carefully reviewed and included from a prior clinic note dated: April 08, 2023 (Cristóbalmalindatremaine) Referring Provider: Tito Hillman MD Additional Clinicians involved in Josefa Castillo's care: CC: Follow up ASSESSMENT: 1. ET: 83 year old woman with essential thrombocythemia. She has been treated with Hydrea since 2001 when she suffered a mini-stroke and was found to have thrombocytosis while living in [place]. She has been on various dosing through [...] month 3. 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 Labs every 8 weeks, CBC, CMP Continue current regimen of Hydrea 500 mg daily Wednesday - Wednesday but increase to 2 tablets (1000 mg) on Saturdays and Sundays) B12 Shot today and every 8 weeks. RTC in 16 weeks HPI: Updated Visit, July 29, 2023: Right mandaeism was not a melanoma - basal cell. Labs reviewed and adjusted hydrea on weekends Otherwise is doing very well. Updated Visit, April 08, 2023: Says she's not doing well. 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 Continues B12 shots every 8 weeks [...] the left side of head over the mandaeism and into the jaw. No vision changes associated with pain. Intermittent and dull and pounding. Right mandaeism at the corner of her eye lid [...] She was following with Dr. Bower in [facility]. Initially on 6 pills of hydrea. 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 She has not required other treatments. Also a history of iron deficiency and required iron infusions occasionally. [facility] then [facility] [place] [address] Pfeiffer, slitting machine operator helper in [facility] and required more iron and blood [...] which included preparing to see the patient, [id number] patient care, completing clinical documentation, performing a medically appropriate examination, counseling and educating the patient/family/caregiver, ordering medications, tests, or procedures, and independently interpreting results (not separately reported). Rod Roman MD, CPE [place], [place] CC: Tito Hillman MD [address] [facility] [id number] documented in this encounter [facility] 07-29-2023 Note HNO ID: [id number] Author: Rod Roman MD Service: ? Author Type: Physician Type: Progress Notes Filed: 08/01/2023 3:49 PM Note Text: NAME: Jsoefa Castillo [facility] NO.: [id number] DATE OF SERVICE: July 29, 2023 (Carlos) [...] found to have thrombocytosis while living [place]. She has been on various dosing through [...] month 3. 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 Labs every 8 weeks, CBC, CMP Continue current regimen of Hydrea 500 mg daily Wednesday - Wednesday but increase to 2 tablets (1000 mg) on Saturdays and Sundays) B12 Shot today and every 8 weeks. RTC in 16 weeks HPI: Updated Visit, July 29, 2023: Right mandaeism was not a melanoma - basal cell. Labs reviewed and adjusted hydrea on weekends Otherwise is doing very well. Updated Visit, April 08, 2023: Says she's not doing well. 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 Continues B12 shots every 8 weeks [...] the left side of head over the mandaeism and into the jaw. No vision changes associated with pain. Intermittent and dull and pounding. Right mandaeism at the corner of her eye lid [...] due today. Updated Visit, September 18, 2021: Joesfa is doing very well today and platelets [...] on Hydrea 50 (more content not included)... [facility] 04-08-2023 Nurse Note Patient Identification confirmed: yes. Injection given and documented on DEC per provider order. Janeth Pelletier MA documented in this encounter [facility] 04-08-2023 Note HNO ID: [id number] Author: Rod Roman MD Service: ? Author Type: Physician Type: Progress Notes Filed: 04/11/2023 2:03 PM Note Text: NAME: Josefa Castillo [facility] NO.: [id number] DATE OF SERVICE: April 08, 2023 (Carlos) [...] found to have thrombocytosis while living [place]. 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 Continues B12 shots every 8 weeks [...] the left side of head over the mandaeism and into the jaw. No vision changes associated with pain. Intermittent and dull and pounding. Right mandaeism at the corner of her eye lid is a small scab that may need further evaluation by derm. Would defer to Dr. Hilmlan. Review of laboratories Feels stable disease on [...] antibiotic last Mo (more content not included)... [facility] 04-08-2023 History of Presen t illness Narrative Images from the original note were not included. NAME: Josefa Castillo CLINIC NO.: [id number] DATE OF SERVICE: April 08, 2023 (Carlos) [...] found to have thrombocytosis while living [place]. 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 Continues B12 shots every 8 weeks [...] the left side of head over the mandaeism and into the jaw. No vision changes associated with pain. Intermittent and dull and pounding. Right mandaeism at the corner of her eye lid [...] She was following with Dr. Bower in [facility]. Initially on 6 pills of hydrea. 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 She has not required other treatments. Also a history of iron deficiency and required iron infusions occasionally. [place] [facility] [place] [address] Pfeiffer, slitting machine operator helper in [facility] and required more iron and blood [...] which included preparing to see the patient, [id number] patient care, completing clinical documentation, performing a medically appropriate examination, counseling and educating the patient/family/caregiver, ordering medications, tests, or procedures, and independently interpreting results (not separately reported). Rod Roman MD, [place], [place] CC: Tito Hillman MD [address] [facility] [id number] documented in this encounter [facility] 02-19-2023 Note Cardiovascular Medic [facility] SUBJECTIVE Chief Complaint Patient presents with Coronary Artery Disease Hypertension Telehealth Phone Visit Josefa Castillo is a 82 y.o. female being evaluated for routine follow-up. HPI PMHx of HTN, CAD s/p stents x3 to LAD and RCA done in [place]. She has a hx of a loop recorder being placed in [place] d/t complaint of syncope. Loop recorder battery , never removed. Dr. Smart gave her the option to go to [place] to have it removed but she refused. [...] Affect: Mood normal (more content not included)... [facility] 02-19-2023 Note Telephone apt for 2 [...] All other systems reviewed and are negative. [facility] 12-17-2022 History of Presen t illness Narrative Patient Identification confirmed: yes. Injection given and documented on DEC per provider order. Katya Craig documented in this encounter [facility] 12-17-2022 Instructions Rod Roman MD - 12/17/2022 10:48 AM EST Labs every 8 weeks, CBC, CMP Labs to include B12 in 8 weeks. Continue current regimen of Hydrea 500 mg daily B12 Shot today and every 8 weeks. RTC in 16 weeks Defer left sided headache and right mandaeism lesion to Dr. Hillman. documented in this encounter [facility] 12-17-2022 History of Presen t illness Narrative Images from the original note were not included. NAME: Josefa Castillo [facility] NO.: [id number] DATE OF SERVICE: December 17, 2022 (Carlos) [...] found to have thrombocytosis while living [place]. She has been on various dosing through [...] weeks Defer left sided headache and right mandaeism lesion to Dr. Hillman. HPI: Updated Visit, [...] the left side of head over the mandaeism and into the jaw. No vision changes associated with pain. Intermittent and dull and pounding. Right mandaeism at the corner of her eye lid [...] She was following with Dr. Bower in [facility]. Initially on 6 pills of hydrea. 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 She has not required other treatments. Also a history of iron deficiency and required iron infusions occasionally. [place] [facility] [place] [address] Pfeiffer, slitting machine operator helper in [facility] and required more iron and blood [...] which included preparing to see the patient, [id number] patient care, completing clinical documentation, performing a medically appropriate examination, counseling and educating the patient/family/caregiver, ordering medications, tests, or procedures, and independently interpreting results (not separately reported). Rod Roman MD, CPE [place], [place] CC: Tito Hillman MD [address] [facility] [id number] documented in this encounter [facility] 11-12-2022 Miscellaneous Notes Please change b-12 date to 11/13/21. Kiera Rey Ma documented in this encounter [facility] 07-30-2022 Nurse Note Patient Identification confirmed: yes. Injection given and documented on DEC per provider order. Lory Avitia documented in this encounter [facility] 07-30-2022 Instructions Rod Roman MD - 07/30/2022 10:30 AM EDT Labs every 4 weeks, CBC, CMP Labs to include B12 in 8 weeks. Continue current regimen of Hydrea 500 mg daily B12 Shot today and every 4 weeks. Defer left sided headache and right mandaeism lesion to Dr. Hillman. documented in this encounter [facility] 07-30-2022 History of Presen t illness Narrative Images from the original note were not included. NAME: Josefa Castillo CLINIC NO.: [id number] DATE OF SERVICE: July 30, 2022 Some [...] found to have thrombocytosis while living [place]. She has been on various dosing through [...] weeks. Defer left sided headache and right mandaeism lesion to Dr. Hillman. HPI: Updated Visit, July 30, 2022: Josefa is 82 years old and returns today with several issues outside of what we typically see her for. She has been complaining of pain on the left side of head over the mandaeism and into the jaw. No vision changes associated with pain. Intermittent and dull and pounding. Right mandaeism at the corner of her eye lid [...] She was following with Dr. Bower in [facility]. Initially on 6 pills of hydrea. 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 She has not required other treatments. Also a history of iron deficiency and required iron infusions occasionally. [place] [facility] [place] [address] Pfeiffer, slitting machine operator helper in [facility] and required more iron and blood [...] which included preparing to see the patient, [id number] patient care, completing clinical documentation, performing a medically appropriate examination, counseling and educating the patient/family/caregiver, ordering medications, tests, or procedures, and independently interpreting results (not separately reported). Rod Roman MD, [place], [place] CC: Tito Hillman MD [address] [facility] [id number] documented in this encounter [facility] 04-30-2022 History of Presen t illness Narrative Patient Identification confirmed: yes. Injection given and documented on MAR per provider order. Katya Craig documented in this encounter [facility] 04-02-2022 Nurse Note Patient Identification confirmed: yes. Injection given and documented on MAR per provider order. Kiera Rey Ma documented in this encounter [facility] 03-05-2022 History of Presen t illness Narrative Images from the original note were not included. NAME: Josefa Castillo CLINIC NO.: [id number] DATE OF SERVICE: March 05, 2022 Some [...] found to have thrombocytosis while [place]. She has been on various dosing through [...] with 2 new great granchildren [facility] and in the New [facility]. Counts well [...] She was following with Dr. Bower in [facility]. Initially on 6 pills of hydrea. 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 She has not required other treatments. Also a history of iron deficiency and required iron infusions occasionally. [place] then [place] [facility] [place] [address] Pfeiffer, slitting machine operator helper in [facility] and required more iron and blood [...] which included preparing to see the patient, [id number] patient care, completing clinical documentation and ordering medications, tests, or procedures. Rod Roman MD, [facility] [place], [place] CC: Tito Hillman MD [address] [facility] [id number] documented in this encounter [facility] 01-30-2022 Nurse Note Patient Identification confirmed: yes. Injection given and documented on DEC per provider order. Lolly Reagan documented in this encounter [facility] Evaluation note Diagnosis Essential thrombocythemia (HCC)- Primary Essential thrombocythemia Megaloblastic anemia due to vitamin B12 deficiency Other vitamin B12 deficiency anemia Osteopenia of multiple sites [facility] Megaloblastic anemia due to [...] (HCC) Essential thrombocythemia [facility] Left hip pain- Primary Pain in joint, pelvic region and thigh Pain from implanted hardware, initial encounter documented in this encounter [facility]* Diagnosis Essential thrombocythemia (HCC)- Primary Essential thrombocythemia Megaloblastic anemia due to vitamin B12 deficiency Other vitamin B12 deficiency anemia [facility] Diagnosis Migraine without aura, not intractable, without status migrainosus (CMS/HCC) documented in this encounter [facility]* Diagnosis DDD (degenerative disc disease), lumbar Degeneration of lumbar or lumbosacral intervertebral disc documented in this encounter [facility]* Diagnosis Essential hypertension, benign (CMS/HCC)- Primary Essential hypertension, benign Migraine without aura, not intractable, without status migrainosus (CMS/HCC) Spondylosis of lumbar region without myelopathy or radiculopathy Major depressive disorder, recurrent episode, mild degree (HCC) (CMS/HCC) Major depressive disorder, recurrent episode, mild Gastroesophageal reflux disease without esophagitis Esophageal reflux documented in this encounter [facility]* Diagnosis Migraine without aura, not intractable, without status migrainosus (CMS/HCC) documented in this encounter [facility]* Diagnosis Essential hypertension, benign (CMS/HCC)- [...] status migrainosus (CMS/HCC) documented in this encounter [facility]* Diagnosis Essential hypertension, [...] lumbosacral intervertebral disc documented in this encounter [facility]* Diagnosis Essential hypertension, [...] unspecified mechanism (CMS/HCC) documented in this encounter [facility]* Diagnosis Essential hypertension, benign (CMS/HCC)- [...] status migrainosus (CMS/HCC) documented in this encounter [facility] [...] lumbosacral intervertebral disc documented in this encounter [facility] note* Diagnosis Essential hypertension, [...] lumbosacral intervertebral disc documented in this encounter [facility]* Diagnosis Essential hypertension, benign (CMS/HCC)- [...] status migrainosus (CMS/HCC) documented in this encounter [facility]* Diagnosis Essential hypertension, [...] aura, not intractable, without status migrainosus (CMS/HCC) DDD (degenerative disc disease), lumbar Degeneration of lumbar or lumbosacral intervertebral disc documented in this encounter [facility]* Diagnosis Essential hypertension, [...] reflux Medicare annual wellness visit, subsequent- Primary Chest pain, unspecified type- Primary Breast mass in female CAD in [place] artery (CMS/HCC) Gastroesophageal reflux disease without esophagitis Esophageal reflux documented in this encounter [facility] HealthcareReason for referral (narrative)* Consultation (Routine) - Authorized Specialty Diagnoses / Procedures Referred By Altagracia yuen Referred To Contact Orthopaedic Surgery Diagnoses Pain from implanted hardware, initial encounter Jr. Luc Stewart DO [address] [facility] [address] [place] [address] Aristeo Ace MD [address] [facility] [address] [place] [address] Referral ID Status Reason Start Date Expiration Date Visits Requested Visits Authorized [id number] Authorized Specialty Services Required 12/01/2023 05/29/2024 1 [...] and content) DATE CREATED AUTHOR 11/11/2019 [facility] DATE CREATED AUTHOR AUTHOR'S ORGANIZ ATION 02/01/2023 [facility] DATE CREATED AUTHOR AUTHOR'S ORGANIZ ATION 02/24/2023 [facility] DATE CREATED AUTHOR AUTHOR'S ORGANIZ ATION 02/24/2024 [facility] DATE CREATED AUTHOR AUTHOR'S ORGANIZ ATION 04/05/2024 [facility] DATE CREATED AUTHOR AUTHOR'S ORGANIZ ATION 07/06/2024 [facility] DATE CREATED AUTHOR AUTHOR'S HIRAL RICHTER 01/06/2025 [facility] EPIC Source Comments (unrecognize d section and content) In the event this informatio n is protected by the Federal Confidentiality of Alcohol and Drug Abuse Patient Records regulations: The Federal rules restrict any use of the information to criminally investigate or prosecute any alcohol or drug abuse patient.[facility] the event this information is protected by the Federal Confidentiality of Alcohol and Drug Abuse Patient Records regulations: The Federal rules restrict any use of the information to criminally investigate or prosecute any alcohol or drug abuse patient.[facility] the event this information is protected by the Federal Confidentiality of Alcohol and Drug Abuse Patient Records regulations: The Federal rules restrict any use of the information to criminally investigate or prosecute any alcohol or drug abuse patient.[facility] the event this information is protected by the Federal Confidentiality of Alcohol and Drug Abuse Patient Records regulations: The Federal rules restrict any use of the information to criminally investigate or prosecute any alcohol or drug abuse patient.[facility] the event this information is protected by the Federal Confidentiality of Alcohol and Drug Abuse Patient Records regulations: The Federal rules restrict any use of the information to criminally investigate or prosecute any alcohol or drug abuse patient.[facility] the event this information is protected by the Federal Confidentiality of Alcohol and Drug Abuse Patient Records regulations: The Federal rules restrict any use of the information to criminally investigate or prosecute any alcohol or drug abuse patient.[facility] the event this information is protected by the Federal Confidentiality of Alcohol and Drug Abuse Patient Records regulations: The Federal rules restrict any use of the information to criminally investigate or prosecute any alcohol or drug abuse patient.[facility] the event this information is protected by the Federal Confidentiality of Alcohol and Drug Abuse Patient Records regulations: The Federal rules restrict any use of the information to criminally investigate or prosecute any alcohol or drug abuse patient.[facility] Center[facility] the event this information is protected by the Federal Confidentiality of Alcohol and Drug Abuse Patient Records regulations: The Federal rules restrict any use of the information to criminally investigate or prosecute any alcohol or drug abuse patient.[facility] Center[facility] the event this information is protected by the Federal Confidentiality of Alcohol and Drug Abuse Patient Records regulations: The Federal rules restrict any use of the information to criminally investigate or prosecute any alcohol or drug abuse patient.[facility] Center[facility] the event this information is protected by the Federal Confidentiality of Alcohol and Drug Abuse Patient Records regulations: The Federal rules restrict any use of the information to criminally investigate or prosecute any alcohol or drug abuse patient.[facility] Center[facility] the event this information is protected by the Federal Confidentiality of Alcohol and Drug Abuse Patient Records regulations: The Federal rules restrict any use of the information to criminally investigate or prosecute any alcohol or drug abuse patient.[facility] Center[facility] the event this information is protected by the Federal Confidentiality of Alcohol and Drug Abuse Patient Records regulations: The Federal rules restrict any use of the information to criminally investigate or prosecute any alcohol or drug abuse patient.[facility] Center[facility] the event this information is protected by the Federal Confidentiality of Alcohol and Drug Abuse Patient Records regulations: The Federal rules restrict any use of the information to criminally investigate or prosecute any alcohol or drug abuse patient.[facility] Reason for Visit (unrecogniz ed section and [...] Comments Med Refill 06/30/2024 Reason Comments Follow-up [address] [place] [address] f/up Reason Onset Date Comments Med Refill 10/19/2024 Reason Onset Date Comments Med Refill 10/30/2024 Reason Onset Date Comments Med Refill 01/01/2025 Reason Comments Follow-up Care Teams (unrecognized sec tion and content) Secretary Of Police Relationship Specialty Start Date End Date Tito Hillman PCP - General Family Practice 06/01/16 Secretary Of Police Relationship Specialty Start Date End Date DahliaTito kruger PCP - General Family Practice 06/01/16 Secretary Of Police Relationship Specialty Start Date End Date ModestoTito ornelas PCP - General Family Practice 06/01/16 Secretary Of Police Relationship Specialty Start Date End Date DahliamelanieTito ornelas PCP - General Family Practice 06/01/16 Secretary Of Police Relationship Specialty Start Date End Date DahliamelanieTito ornelas PCP - General Family Medicine 06/01/16 Secretary Of Police Relationship Specialty Start Date End Date ModestoTito ornelas PCP - General Family Medicine 06/01/16 Secretary Of Police Relationship Specialty Start Date End Date DahliamelanieTito ornelas PCP - General Family Medicine 06/01/16 Secretary Of Police Relationship Specialty Start Date End Date ModestoTito ornelas PCP - General Family Medicine 06/01/16 Secretary Of Police Relationship Specialty Start Date End Date Tito Hillman PCP - General Family Medicine 06/01/16 Secretary Of Police Relationship Specialty Start Date End Date Tito Hillman PCP - General Family Medicine 06/01/16 Secretary Of Police Relationship Specialty Start Date End Date Tito Hillman MD [address] [place] [address] PCP - General Family Medicine 11/23/23 Secretary Of Police Relationship Specialty Start Date End Date Tito Hillman PCP - General Family Medicine 06/01/16 Secretary Of Police Relationship Specialty Start Date End Date Tito Hillman MD [address] [place] [phone] PCP - General Family Medicine 11/23/23 Secretary Of Police Relationship Specialty Start Date End Date Tito Hillman MD [address] [place] [phone] PCP - General Family Medicine 11/23/23 Secretary Of Police Relationship Specialty Start Date End Date Tito Hillman MD [address] [place] [phone] PCP - General Family Medicine 11/23/23 Secretary Of Police Relationship Specialty Start Date End Date Tito Hillman MD [address] [place] [address] PCP - General Family Medicine 11/23/23 Secretary Of Police Relationship Specialty Start Date End Date Tito Hillman MD [address] [place] [address] PCP - General Family Medicine 11/23/23 Secretary Of Police Relationship Specialty Start Date End Date Tito Hillman MD [address] [place] [phone] PCP - General Family Medicine 11/23/23 Secretary Of Police Relationship Specialty Start Date End Date Tito Hillman MD [address] [place] [address] PCP - General Family Medicine 11/23/23 Secretary Of Police Relationship Specialty Start Date End Date Tito Hillman PCP - General Family Medicine 06/01/16 Secretary Of Police Relationship Specialty Start Date End Date Tito Hillman MD [address] [place] [phone] PCP - [facility] Medicine 11/23/23 Secretary Of Police Relationship Specialty Start Date End Date Tito Hillman MD [address] [place] [phone] PCP - [facility] Medicine 11/23/23 Secretary Of Police Relationship Specialty Start Date End Date Tito Hillman MD [address] [place] [phone] PCP - General [facility] Medicine 11/23/23 Secretary Of Police Relationship Specialty Start Date End Date Tito Hillman MD [address] [place] [phone] PCP - General [facility] Medicine 11/23/23 Secretary Of Police Relationship Specialty Start Date End Date Tito Hillman MD [address] [place] [phone] PCP - General Family Medicine 11/23/23 Secretary Of Police Relationship Specialty Start Date End Date Tito Hillman MD [address] [place] [address] PCP - General Family Medicine 11/23/23 Secretary Of Police Relationship Specialty Start Date End Date Tito Hillman MD [address] [place] [address] PCP - General Family Medicine 11/23/23 Secretary Of Police Relationship Specialty Start Date End Date Tito Hillman MD [address] [place] [address] PCP - General Family Medicine 11/23/23 Secretary Of Police Relationship Specialty Start Date End Date Tito Hillman MD [address] [place] [address] PCP - General Family Medicine 11/23/23 Secretary Of Police Relationship Specialty Start Date End Date Tito Hillman MD [address] [place] [address] PCP - General Family Medicine 11/23/23 Tito Hillman MD [address] [place] [address] PCP - [facility] 12/08/24 Secretary Of Police Relationship Specialty Start Date End Date Tito Hillman MD [address] [place] [address] PCP - General Family Medicine 11/23/23 Tito Hillman MD [address] [place] [phone] [facility] 12/08/24 Secretary Of Police Relationship Specialty Start Date End Date Tito Hillman MD [address] [place] [phone] [facility] 11/23/23 Tito Hillamn MD [address] [place] [address] [facility] 12/08/24 Secretary Of Police Relationship Specialty Start Date End Date Tito Hillman MD [address] [place] [phone] [facility] 11/23/23 Tito Hillman MD [address] [place] [address] [facility] 12/08/24 FOR RECORDS PERTAINING TO PATIENTS WHO [...] BE BASED ON THE PRIMARY CLINICAL RECORDS. [facility] [employer] [facility]. provides no warranty or guarantee of the accuracy or completeness of information in this document.
[2025-01-12] MEDS: REGADENOSON 0.4 MG/5 ML SYRINGE IV (12:26)
--- NOTE | 2025-01-15 13:24 | P.STRESS_ITS ---
Stress Test Stress Test Allergies Allergy/AdvReac Type Severity Reaction Status Date / Time morphine AdvReac Severe Hallucinati Verified 12/23/24 15:05 ng Sulfa (Sulfonamide AdvReac Severe Hives Verified 12/23/24 15:05 Antibiotics) Requesting physician: Tito Ledezma Procedure: This was a Lexiscan stress test with myocardial perfusion imaging performed at [facility] on 01/12/2025. Intravenous line was secured. The patient was attached to electrocardiographic monitoring. Lexiscan 0.4 mg was infused intravenously followed by administration of Cardiolite. The patient then went on to obtain myocardial perfusion imaging. General Information: Reason for Stress Test: chest pain Cardiac History and Risk Factors: hypertension, [place], stents Resting 12 - Lead Electrocardiogram: Sinus bradycardia otherwise normal ECG. Heart rate 57 bpm. Stress Test: Protocol: Pharmacologic stress test using Lexiscan. Exercise Capacity: Unable to assess. Blood Pressure Response: Resting hypertension. Rhythm: Sinus. No arrhythmia seen during the test. ST - Response: No ischemic ST changes. Patient Response: No symptoms. Interpretation: 1. Negative stress test for Lexiscan induced ischemic ST changes. 2. Myocardial perfusion imaging will be reported separately.
== END 2025-01-12 10:55 | disposition home or self-care (01) ==
LOC: NM 10:54
PROVIDERS: PCP Physician Assistant; Visit Provider Family Medicine
DX: R07.9 Chest pain, unspecified (principal); I25.10 Atherosclerotic heart disease of native coronary artery without angina pectoris
CPT/HCPCS: 78452; 93017; A9500; J2785

== ENCOUNTER 2025-01-23 07:41 | Outpatient (RCR) | payer MEDICARE, OTHER, SELFPAY ==
[2025-01-09 13:00] VITALS: BP 151/67; PULSE 69; TEMP 36.7; O2SAT 98
[2025-01-09] MEDS: CYANOCOBALAMIN 1,000 MCG/ML VIAL 1000 MCG IM (13:30)
== END 2025-01-29 23:59 | disposition home or self-care (01) ==
LOC: HEMC 07:41
PROVIDERS: PCP Physician Assistant; Visit Provider Internal Medicine Hematology & Oncology
DX: D51.9 Vitamin B12 deficiency anemia, unspecified (principal); D47.3 Essential (hemorrhagic) thrombocythemia; D64.9 Anemia, unspecified; D72.829 Elevated white blood cell count, unspecified
CPT/HCPCS: 96372; J3420

== ENCOUNTER 2025-02-23 11:14 | Outpatient (OUT) | payer MEDICARE, OTHER, SELFPAY | END 2025-02-23 11:15 | disposition home or self-care (01) | LOC: WC 11:15 | PROVIDERS: PCP Physician Assistant; Visit Provider Physician Assistant | DX: R60.0 Localized edema (principal) | CPT/HCPCS: G0463 ==

== ENCOUNTER 2025-03-06 11:29 | Emergency (ER) | payer MEDICARE, OTHER, SELFPAY ==
[2025-03-06 11:32] VITALS: BP 178/118; PULSE 69; TEMP 36.4; O2SAT 100; BMI 17.7
[2025-03-06 11:46] VITALS: BP 152/80
--- NOTE | 2025-03-06 11:49 | ECG_ITS ---
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 Measurements Intervals Byars Rate: 61 P: 51 CO: 146 QRS: 47 QRSD: 74 T: 55 QT: 400 QTc: 402 Interpretive Statements 1100 Sinus rhythm 9110 normal ECG Compared to ECG 12/23/2024 15:04:34 No significant changes Electronically Signed On 03-06-2025 16:55:14 EDT by KAYLAN MOSELEY M.D.
[2025-03-06 12:25] LABS: Basophils Absolute Auto 0.1 10^3/uL (0.0-0.1); Basophils Percent Auto 0.8 % (0.2-2.0); Eosinophils Percent Auto 0.5 % (0.9-7.0); Hematocrit 33.2 % (36.0-48.0); Hemoglobin 11.2 g/dL (12.0-16.0); Immature Granulocytes Abs Auto 0.04 10^3/uL (0.00-0.03); Immature Granulocytes Pct Auto 0.6 % (0.0-0.5); Lymphocytes Percent Auto 15.8 % (20.5-60.0); Mean Corpuscular HGB Conc 33.7 g/dL (29.9-35.2); Mean Corpuscular Hemoglobin 42.1 pg (26.7-34.0); Mean Corpuscular Volume 124.8 fL (81.0-99.0); Mean Platelet Volume 10.8 fL (9.5-13.5); Monocytes Absolute Auto 0.5 10^3/uL (0.3-0.8); Monocytes Percent Auto 8.4 % (1.7-12.0); Neutrophils Absolute Auto 4.8 10^3/uL (1.4-6.5); Neutrophils Percent Auto 73.9 % (43.0-75.0); Platelet Count 401 10^3/uL (150-450); Red Cell Distribution Width 20.8 % (11.0-15.0); White Blood Count 6.4 10^3/uL (4.0-11.0)
[2025-03-06 12:45] VITALS: BP 139/70; PULSE 62; O2SAT 100
[2025-03-06] MEDS: FAMOTIDINE/PF 20 MG/2 ML VIAL IV (12:47)
[2025-03-06] MEDS: KETOROLAC TROMETHAMINE 30 MG/ML VIAL 15 MG IVP (12:47)
--- NOTE | 2025-03-06 12:50 | PC.NURSE ---
No Nitro given at this time, patient denies chest pain at present time.
[2025-03-06 13:08] LABS: Alanine Aminotransferase 10 U/L (14-59); Albumin Globulin Ratio 1.2; Albumin Level 3.4 g/dL (3.4-5.0); Alkaline Phosphatase 65 U/L (46-116); Anion Gap 12.3; Aspartate Amino Transferase 10 U/L (15-37); BUN Creatinine Ratio 20.2; Bilirubin Total 0.3 mg/dL (0.2-1.0); Calcium 8.2 mg/dL (8.5-10.1); Carbon Dioxide 25.6 mmol/L (21.0-32.0); Chloride 105 mmol/L (98-107); Estimated GFR (African America >60 (>=60 mL/min/1.73m^2); Estimated GFR (Non-African Ame >60 (>=60 mL/min/1.73m^2); Globulin 2.9 g/dL; Glucose 80 mg/dL (74-106); Potassium 4.9 mmol/L (3.5-5.1); Sodium 138 mmol/L (136-145); Total Protein 6.3 g/dL (6.4-8.2)
[2025-03-06 13:30] LABS: INR 1.05; Prothrombin Time 11.1 sec (9.0-11.6)
[2025-03-06 13:41] LABS: Red Blood Count 2.66 10^6/uL (4.20-5.40)
[2025-03-06 14:18] LABS: Troponin I High Sensitivity 7.8 pg/mL (4.0-51.3)
[2025-03-06 14:23] VITALS: BP 149/68; PULSE 63; O2SAT 100
--- NOTE | 2025-03-06 14:33 | ED.CHESTPAI1 ---
HPI - Chest Pain General Chief Complaint: Chest Pain Stated Complaint: CHEST PAIN BODY PAIN Time Seen by Provider: 03/06/25 11:48 Source: patient Mode of arrival: Wheelchair History of Present Illness HPI narrative: The patient is coming to the ER with few days history of left-sided chest pain associated with a headache and bilateral lower extremity joint pain, though the patient mentioned that she have a chronic joint pain and this got exacerbated over the last few days, she also have a frontal headache, she denies any chest pain at the moment she mentioned that the pain comes for few seconds sometimes and is not related to exertion or taking a deep breath No cough no fever no other complaints Related Data Home Medications ?Medication ?Instructions ?Recorded ?Confirmed aspirin 81 mg capsule 81 mg PO DAILY 12/24/23 03/06/25 atorvastatin 20 mg tablet 20 mg PO .QHS 12/24/23 03/06/25 celecoxib 100 mg capsule 100 mg PO Q12H 12/24/23 03/06/25 hydrocodone 5 mg-acetaminophen 325 1 tab PO Q6H PRN pain 12/24/23 03/06/25 mg tablet isosorbide mononitrate 60 mg 60 mg PO QAM 12/24/23 03/06/25 tablet,extended release 24 hr lisinopril 10 mg tablet 10 mg PO QAM 12/24/23 03/06/25 metoprolol tartrate 25 mg tablet 25 mg PO Q12H 12/24/23 03/06/25 paroxetine HCl 40 mg tablet 40 mg PO QAM 12/24/23 03/06/25 quetiapine 25 mg tablet 25 mg PO .QHS 12/24/23 03/06/25 hydroxyurea 500 mg capsule 500 mg PO DAILY 06/28/24 03/06/25 alendronate 70 mg tablet 70 mg PO .Q7 03/06/25 03/06/25 cskfoibqun-cjeuohwamhfaz-nvhybvzx 1 tab PO Q6H PRN pain 03/06/25 03/06/25 50 mg-325 mg-40 mg tablet famotidine 40 mg tablet 40 mg PO DAILY 03/06/25 03/06/25 lisinopril 5 mg tablet 5 mg PO DAILY 03/06/25 03/06/25 omeprazole 40 mg capsule,delayed 40 mg PO DAILY 03/06/25 03/06/25 release oxybutynin chloride 10 mg 10 mg PO DAILY 03/06/25 03/06/25 tablet,extended release 24 hr topiramate 50 mg tablet 50 mg PO Q12H 03/06/25 03/06/25 Allergies Allergy/AdvReac Type Severity Reaction Status Date / Time morphine AdvReac Severe Hallucinati Verified 12/23/24 15:05 ng Sulfa (Sulfonamide AdvReac Severe Hives Verified 12/23/24 15:05 Antibiotics) Review of Systems ROS Status of ROS 10 or more systems reviewed and unremarkable except as noted in history and [facility] Essential thrombocytosis ?D47.3 - Essential (hemorrhagic) thrombocythemia (ICD-10) Skin cancer ?C44.90 - Unspecified malignant neoplasm of skin, unspecified (ICD-10) Mini stroke ?G45.9 - Transient cerebral ischemic attack, unspecified (ICD-10) Sleep apnea ?G47.30 - Sleep apnea, unspecified (ICD-10) Afib ?I48.91 - Unspecified atrial fibrillation (ICD-10) HTN (hypertension) ?I10 - Essential (primary) hypertension (ICD-10) Surgical History H/O heart artery stent ?Z95.5 - Presence of coronary angioplasty implant and graft (ICD-10) History of back surgery ?Z98.890 - Other specified postprocedural states (ICD-10) History of left hip replacement ?Z96.642 - Presence of left artificial hip joint (ICD-10) Social History Smoking status: Never smoker Highest level of school completed/degree received: 12th grade, no diploma Little interest or pleasure in doing things: not at all Feeling down, depressed, or hopeless: not at all Exam Narrative Exam Narrative: Nurses notes and vital signs reviewed and patient is not hypoxic. General: Well-appearing and in no apparent distress. Skin: Warm, dry, no pallor noted. No rash. Head: Normocephalic, atraumatic. Neck: Supple, non-tender. Eye: Pupils are equal, round and EOMI. No scleral icterus. Ears, Nose, Mouth, and Throat: TM are clear, no nasal mucosal hypertrophy. Oral mucosa is moist, no posterior oropharynx erythema, uvula is mid-line Cardiovascular: Regular Rate and Rhythm without murmur, gallop or rub. Respiratory: No accessory muscle use or respiratory distress. Lungs are clear to auscultation, no wheezing, rales or rhonchi Chest Wall: no tenderness Back: No midline thoracic or lumbar vertebral tenderness. No CVA tenderness Musculoskeletal: normal ROM, no calf or popliteal tenderness, no lower extremity edema/swelling GI: Abdomen is soft, non-distended. Normal bowel sounds. No masses appreciated. No tenderness to palpation. No rebound, guarding, or rigidity noted. Neurological: A&O x4. No cranial nerve dysfunction observed. No truncal ataxia. Moves all extremities. Sensation intact. Psychiatric: Cooperative and interactive. Normal mood and affect. Constitutional Vital Signs, click to edit/add: Last Vital Signs Temp 97.5 F L 03/06/25 11:32 Pulse 63 03/06/25 14:23 Resp 20 03/06/25 14:23 BP 149/68 H 03/06/25 14:23 Pulse Ox 100 03/06/25 14:23 O2 Del Method Room Air 03/06/25 14:23 Course Vital Signs Vital signs: Vital Signs Temperature 97.5 F L 03/06/25 11:32 Pulse Rate 69 03/06/25 11:32 Respiratory Rate 18 03/06/25 11:32 Blood Pressure 178/118 H 03/06/25 11:32 Pulse Oximetry 100 03/06/25 11:32 Oxygen Delivery Method Room Air 03/06/25 11:32 Temperature 97.5 F L 03/06/25 11:32 Pulse Rate 63 03/06/25 14:23 Respiratory Rate 20 03/06/25 14:23 Blood Pressure 149/68 H 03/06/25 14:23 Pulse Oximetry 100 03/06/25 14:23 Oxygen Delivery Method Room Air 03/06/25 14:23 MDM - Chest Pain MDM Narrative Medical decision making narrative: The patient chest x-ray showed no acute pathology And the patient EKG in the ER showing sinus rhythm with a heart rate of [address] elevation or depression The patient CBC and chemistry showed no acute pathology with a troponin repeated twice was negative According to the patient she did had a stress test almost 2 weeks ago that was negative and I did review that in the system and it was negative The patient chest x-ray showed no acute pathology The patient was feeling much better after being treated supportively with Toradol as well as Pepcid The patient did not have any pain at the ER at any time In her presentation with the headache and joint pain could be secondary to viral illness The patient is to follow up with primary care physician in next 2-3 days or to return to the emergency department should any of the signs or symptoms worsen or new symptoms develop. The patient agrees with the following Diagnosis and Treatment plan and the patient will be discharged home. Lab Data Labs: Lab Results 03/06/25 03/06/25 03/06/25 Range/Units 12:05 12:43 13:55 WBC 6.4 (4.0-11.0) 10^3/uL RBC 2.66 L (4.20-5.40) 10^6/uL Hgb 11.2 L (12.0-16.0) g/dL Hct 33.2 L (36.0-48.0) % MCV 124.8 H (81.0-99.0) fL MCH 42.1 H (26.7-34.0) pg MCHC 33.7 (29.9-35.2) g/dL RDW 20.8 H (11.0-15.0) % Plt Count 401 (150-450) 10^3/uL MPV 10.8 (9.5-13.5) fL Neut % (Auto) 73.9 (43.0-75.0) % Lymph % (Auto) 15.8 L (20.5-60.0) % Whitman % (Auto) 8.4 (1.7-12.0) % Eos % (Auto) 0.5 L (0.9-7.0) % Baso % (Auto) 0.8 (0.2-2.0) % Neut # (Auto) 4.8 (1.4-6.5) 10^3/uL Lymph # (Auto) 1.0 L (1.2-3.8) 10^3/uL Whitman # (Auto) 0.5 (0.3-0.8) 10^3/uL Eos # (Auto) 0.0 (0.0-0.7) 10^3/uL Baso # (Auto) 0.1 (0.0-0.1) 10^3/uL Abs Immat Gran (auto) 0.04 H (0.00-0.03) 10^3/uL Imm/Tot Granulo (auto) 0.6 H (0.0-0.5) % PT 11.1 (9.0-11.6) sec INR 1.05 Sodium 138 (136-145) mmol/L Potassium 4.9 (3.5-5.1) mmol/L Chloride 105 (98-107) mmol/L Carbon Dioxide 25.6 (21.0-32.0) mmol/L Anion Gap 12.3 BUN 17.0 (7.0-18.0) mg/dL Creatinine 0.84 (0.55-1.02) mg/dL Est GFR ( Amer) >60 (>=60 mL/min/1.73m^2) Est GFR (Non-Af Amer) >60 (>=60 mL/min/1.73m^2) BUN/Creatinine Ratio 20.2 Glucose 80 (74-106) mg/dL Calcium 8.2 L (8.5-10.1) mg/dL Total Bilirubin 0.3 (0.2-1.0) mg/dL AST 10 L (15-37) U/L ALT 10 L (14-59) U/L Alkaline Phosphatase 65 (46-116) U/L Troponin I High Sens 7.0 7.8 (4.0-51.3) pg/mL Total Protein 6.3 L (6.4-8.2) g/dL Albumin 3.4 (3.4-5.0) g/dL Globulin 2.9 g/dL Albumin/Globulin Ratio 1.2 Discharge Plan Discharge Chief Complaint: Chest Pain Clinical Impression: Chest pain, Headache Patient Disposition: Home, Self-Care Time of Disposition Decision: 14:42 Condition: Good Prescriptions / Home Meds: No Action hydroxyurea 500 mg capsule 500 mg PO DAILY alendronate 70 mg tablet 70 mg PO .Q7 ycvnsuqxmu-nbiwfgjldmnnj-qdig 50-325-40 mg tablet 1 tab PO Q6H PRN (Reason: pain) famotidine 40 mg tablet 40 mg PO DAILY lisinopril 5 mg tablet 5 mg PO DAILY omeprazole 40 mg capsule,delayed release(DR/EC) 40 mg PO DAILY oxybutynin chloride 10 mg tablet extended release 24hr 10 mg PO DAILY topiramate 50 mg tablet 50 mg PO Q12H quetiapine 25 mg tablet 25 mg PO .QHS atorvastatin 20 mg tablet 20 mg PO .QHS hydrocodone-acetaminophen 5-325 mg tablet 1 tab PO Q6H PRN (Reason: pain) isosorbide mononitrate 60 mg tablet extended release 24 hr 60 mg PO QAM lisinopril 10 mg tablet 10 mg PO QAM paroxetine HCl 40 mg tablet 40 mg PO QAM celecoxib 100 mg capsule 100 mg PO Q12H metoprolol tartrate 25 mg tablet 25 mg PO Q12H aspirin 81 mg capsule 81 mg PO DAILY Print Language: Icelandic Instructions: Chest Pain (ED), Acute Headache (DC) Referrals: Rosa Maria Wilson PA [Primary Care Provider] - 1 week Discharge Date/Time: 03/06/25 14:59
== END 2025-03-06 14:59 | disposition home or self-care (01) ==
PROVIDERS: Emergency Provider Emergency Medicine; PCP Physician Assistant
DX: R07.9 Chest pain, unspecified (principal); R51.9 Headache, unspecified; Z95.5 Presence of coronary angioplasty implant and graft; Z96.642 Presence of left artificial hip joint
CPT/HCPCS: 36415; 71045; 80053; 84484; 85025; 85610; 93005; 96374; 96375; 99285; J1885; J3490

== ENCOUNTER 2025-03-27 07:39 | Outpatient (RCR) | payer MEDICARE, OTHER, SELFPAY ==
[2025-03-13 14:00] VITALS: BP 157/70; PULSE 62; TEMP 36.6; O2SAT 100
[2025-03-13] MEDS: CYANOCOBALAMIN 1,000 MCG/ML VIAL 1000 MCG IM (14:11)
[2025-03-20 13:26] VITALS: BP 173/80; PULSE 58; TEMP 36.4; O2SAT 98
[2025-03-20] MEDS: CYANOCOBALAMIN 1,000 MCG/ML VIAL 1000 MCG IM (13:26)
[2025-03-27 13:15] VITALS: BP 150/78; PULSE 78; TEMP 36.2; O2SAT 98
[2025-03-27] MEDS: CYANOCOBALAMIN 1,000 MCG/ML VIAL 1000 MCG IM (13:23)
== END 2025-03-27 14:20 | disposition home or self-care (01) ==
LOC: HEMC 07:39
PROVIDERS: PCP Physician Assistant; Visit Provider Internal Medicine Hematology & Oncology
DX: D51.9 Vitamin B12 deficiency anemia, unspecified (principal); D64.9 Anemia, unspecified; D47.3 Essential (hemorrhagic) thrombocythemia; D72.829 Elevated white blood cell count, unspecified; Z90.49 Acquired absence of other specified parts of digestive tract; Z95.5 Presence of coronary angioplasty implant and graft; Z90.710 Acquired absence of both cervix and uterus; F17.290 Nicotine dependence, other tobacco product, uncomplicated
CPT/HCPCS: 96372; G0463; J3420

== ENCOUNTER 2025-04-24 07:57 | Outpatient (RCR) | payer MEDICARE, OTHER, SELFPAY ==
[2025-04-03] MEDS: CYANOCOBALAMIN 1,000 MCG/ML VIAL 1000 MCG IM (13:40)
[2025-04-10] MEDS: CYANOCOBALAMIN 1,000 MCG/ML VIAL 1000 MCG IM (12:57)
[2025-04-17 13:14] VITALS: BP 158/71; PULSE 75; TEMP 36.2; O2SAT 97
[2025-04-17] MEDS: CYANOCOBALAMIN 1,000 MCG/ML VIAL 1000 MCG IM (13:16)
[2025-04-24 13:30] VITALS: BP 125/66; PULSE 64; TEMP 36.1; O2SAT 97
[2025-04-24] MEDS: CYANOCOBALAMIN 1,000 MCG/ML VIAL 1000 MCG IM (13:45)
== END 2025-04-30 23:59 | disposition home or self-care (01) ==
LOC: HEMC 07:57
PROVIDERS: PCP Physician Assistant; Visit Provider Internal Medicine Hematology & Oncology
DX: D47.3 Essential (hemorrhagic) thrombocythemia (principal); D64.9 Anemia, unspecified; D72.829 Elevated white blood cell count, unspecified; D51.9 Vitamin B12 deficiency anemia, unspecified
CPT/HCPCS: 96372; J3420

== ENCOUNTER 2025-05-29 07:42 | Outpatient (RCR) | payer MEDICARE, OTHER, SELFPAY ==
[2025-05-01] MEDS: CYANOCOBALAMIN 1,000 MCG/ML VIAL 1000 MCG IM (13:30)
[2025-05-08] MEDS: CYANOCOBALAMIN 1,000 MCG/ML VIAL 1000 MCG IM (13:27)
[2025-05-08 13:29] VITALS: BP 175/75; PULSE 56; TEMP 36.2; O2SAT 98
[2025-05-15 11:14] LABS: Hematocrit 33.7 % (36.0-48.0); Hemoglobin 11.4 g/dL (12.0-16.0); Immature Granulocytes Abs Auto 0.01 10^3/uL (0.00-0.03); Immature Granulocytes Pct Auto 0.2 % (0.0-0.5); Lymphocytes Absolute Auto 1.0 10^3/uL (1.2-3.8); Mean Corpuscular HGB Conc 33.8 g/dL (29.9-35.2); Mean Corpuscular Hemoglobin 45.2 pg (26.7-34.0); Platelet Count 226 10^3/uL (150-450); Red Blood Count 2.52 10^6/uL (4.20-5.40); White Blood Count 4.5 10^3/uL (4.0-11.0)
[2025-05-15 11:21] LABS: Alanine Aminotransferase 16 U/L (14-59); Albumin Globulin Ratio 1.3; Albumin Level 3.9 g/dL (3.4-5.0); Alkaline Phosphatase 57 U/L (46-116); Anion Gap 15.3; Aspartate Amino Transferase 13 U/L (15-37); Blood Urea Nitrogen 21.0 mg/dL (7.0-18.0); Calcium 8.5 mg/dL (8.5-10.1); Carbon Dioxide 24.4 mmol/L (21.0-32.0); Chloride 105 mmol/L (98-107); Estimated GFR (African America >60 (>=60 mL/min/1.73m^2); Estimated GFR (Non-African Ame 57 (>=60 mL/min/1.73m^2); Globulin 2.9 g/dL; Glucose 89 mg/dL (74-106); Potassium 4.7 mmol/L (3.5-5.1); Sodium 140 mmol/L (136-145); Total Protein 6.8 g/dL (6.4-8.2)
[2025-05-15 11:30] LABS: Iron 84.0 ug/dL (50.0-170.0); Percent Iron Saturation 30.7 %; Total Iron Binding Capacity 274.0 ug/dL (250.0-450.0)
[2025-05-15 11:36] LABS: Mean Corpuscular Volume 133.7 fL (81.0-99.0)
[2025-05-15] MEDS: CYANOCOBALAMIN 1,000 MCG/ML VIAL 1000 MCG IM (12:20)
[2025-05-16 04:07] LABS: Vitamin B12 1067 pg/mL (232-1245)
[2025-05-22 13:29] VITALS: BP 146/69; PULSE 59; TEMP 36.4; O2SAT 99
[2025-05-22] MEDS: CYANOCOBALAMIN 1,000 MCG/ML VIAL 1000 MCG IM (13:31)
[2025-05-29 13:20] VITALS: BP 160/78; PULSE 58; TEMP 36.7; O2SAT 100
[2025-05-29] MEDS: CYANOCOBALAMIN 1,000 MCG/ML VIAL 1000 MCG IM (13:27)
== END 2025-05-31 23:59 | disposition home or self-care (01) ==
LOC: HEMC 07:42
PROVIDERS: PCP Physician Assistant; Visit Provider Internal Medicine Hematology & Oncology
DX: D47.3 Essential (hemorrhagic) thrombocythemia (principal); D64.9 Anemia, unspecified; D72.829 Elevated white blood cell count, unspecified; D51.9 Vitamin B12 deficiency anemia, unspecified; Z87.891 Personal history of nicotine dependence; Z90.49 Acquired absence of other specified parts of digestive tract; Z95.5 Presence of coronary angioplasty implant and graft; Z90.710 Acquired absence of both cervix and uterus; Z96.642 Presence of left artificial hip joint; Z86.73 Personal history of transient ischemic attack (TIA), and cerebral infarction without residual deficits; M54.9 Dorsalgia, unspecified; G89.29 Other chronic pain
CPT/HCPCS: 36415; 80053; 82306; 82607; 82728; 83540; 83550; 85025; 96372; G0463; J3420

== ENCOUNTER 2025-06-26 07:55 | Outpatient (RCR) | payer MEDICARE, OTHER, SELFPAY ==
[2025-06-05 13:25] VITALS: BP 172/80; PULSE 69; TEMP 36.9; O2SAT 96
[2025-06-05] MEDS: CYANOCOBALAMIN 1,000 MCG/ML VIAL 1000 MCG IM (13:36)
[2025-06-12 13:15] VITALS: BP 161/79; PULSE 58; TEMP 36.4; O2SAT 98
[2025-06-12] MEDS: CYANOCOBALAMIN 1,000 MCG/ML VIAL 1000 MCG IM (13:31)
[2025-06-19 13:31] VITALS: BP 179/75; PULSE 78; TEMP 36.6; O2SAT 98
[2025-06-19] MEDS: CYANOCOBALAMIN 1,000 MCG/ML VIAL 1000 MCG IM (13:36)
== END 2025-07-01 23:59 | disposition home or self-care (01) ==
LOC: HEMC 07:55
PROVIDERS: PCP Physician Assistant; Visit Provider Internal Medicine Hematology & Oncology
DX: D47.3 Essential (hemorrhagic) thrombocythemia (principal); D64.9 Anemia, unspecified; D51.9 Vitamin B12 deficiency anemia, unspecified; D72.829 Elevated white blood cell count, unspecified
CPT/HCPCS: 96372; J3420

== ENCOUNTER 2025-07-31 10:48 | Outpatient (RCR) | payer MEDICARE, OTHER, SELFPAY ==
[2025-07-03 13:30] VITALS: BP 158/65; PULSE 62; TEMP 36.4; O2SAT 96
[2025-07-03] MEDS: CYANOCOBALAMIN 1,000 MCG/ML VIAL 1000 MCG IM (14:03)
[2025-07-10 13:00] VITALS: BP 213/91; PULSE 54; TEMP 36.6; O2SAT 97
[2025-07-10] MEDS: CYANOCOBALAMIN 1,000 MCG/ML VIAL 1000 MCG IM (13:10)
[2025-07-17] MEDS: CYANOCOBALAMIN 1,000 MCG/ML VIAL 1000 MCG IM (11:16)
[2025-07-17 11:17] LABS: Hematocrit 34.9 % (36.0-48.0); Hemoglobin 11.6 g/dL (12.0-16.0); Immature Granulocytes Abs Auto 0.02 10^3/uL (0.00-0.03); Immature Granulocytes Pct Auto 0.4 % (0.0-0.5); Lymphocytes Absolute Auto 1.3 10^3/uL (1.2-3.8); Mean Corpuscular HGB Conc 33.2 g/dL (29.9-35.2); Mean Corpuscular Hemoglobin 40.8 pg (26.7-34.0); Platelet Count 409 10^3/uL (150-450); Red Blood Count 2.84 10^6/uL (4.20-5.40); White Blood Count 5.5 10^3/uL (4.0-11.0)
[2025-07-17 11:31] LABS: Mean Corpuscular Volume 122.9 fL (81.0-99.0)
[2025-07-17 12:06] LABS: Iron 42.0 ug/dL (50.0-170.0); Percent Iron Saturation 14.0 %; Total Iron Binding Capacity 301.0 ug/dL (250.0-450.0)
[2025-07-17 12:09] LABS: Anion Gap 11.5; Blood Urea Nitrogen 12.0 mg/dL (7.0-18.0); Calcium 8.5 mg/dL (8.5-10.1); Carbon Dioxide 28.9 mmol/L (21.0-32.0); Chloride 104 mmol/L (98-107); Estimated GFR (African America >60 (>=60 mL/min/1.73m^2); Estimated GFR (Non-African Ame 59 (>=60 mL/min/1.73m^2); Glucose 83 mg/dL (74-106); Potassium 5.4 mmol/L (3.5-5.1); Sodium 139 mmol/L (136-145)
[2025-07-17 12:32] LABS: Ferritin 19.0 ng/mL (8.0-252.0)
[2025-07-18 04:07] LABS: Vitamin B12 1464 pg/mL (232-1245)
[2025-07-24 10:50] VITALS: BP 170/74; PULSE 100; TEMP 36.1; O2SAT 94
[2025-07-24] MEDS: CYANOCOBALAMIN 1,000 MCG/ML VIAL 1000 MCG IM (10:54)
[2025-07-31 10:55] VITALS: BP 170/69; PULSE 72; TEMP 36.6; O2SAT 96
[2025-07-31] MEDS: FERRIC CARBOXYMALTOSE 750 MG in 0.9 % SODIUM CHLORIDE 250 ML 795 MG IV (11:18)
[2025-07-31] MEDS: CYANOCOBALAMIN 1,000 MCG/ML VIAL 1000 MCG IM (11:19)
== END 2025-07-31 23:59 | disposition home or self-care (01) ==
LOC: HEMC 10:48
PROVIDERS: PCP Physician Assistant; Visit Provider Internal Medicine Hematology & Oncology
DX: D47.3 Essential (hemorrhagic) thrombocythemia (principal); D64.9 Anemia, unspecified; D72.829 Elevated white blood cell count, unspecified; D51.9 Vitamin B12 deficiency anemia, unspecified; K90.9 Intestinal malabsorption, unspecified; D50.9 Iron deficiency anemia, unspecified; Z90.49 Acquired absence of other specified parts of digestive tract; Z95.5 Presence of coronary angioplasty implant and graft; I10 Essential (primary) hypertension; M81.0 Age-related osteoporosis without current pathological fracture; Z86.73 Personal history of transient ischemic attack (TIA), and cerebral infarction without residual deficits; F17.290 Nicotine dependence, other tobacco product, uncomplicated; Z90.710 Acquired absence of both cervix and uterus; Z96.642 Presence of left artificial hip joint
CPT/HCPCS: 36415; 80048; 82306; 82607; 82728; 83540; 83550; 85025; 96365; 96372; G0463; J1439; J3420

== ENCOUNTER 2025-08-28 13:19 | Outpatient (RCR) | payer MEDICARE, OTHER, SELFPAY ==
[2025-08-07] MEDS: FERRIC CARBOXYMALTOSE 750 MG in 0.9 % SODIUM CHLORIDE 250 ML 795 MG IV (11:18)
[2025-08-07] MEDS: CYANOCOBALAMIN 1,000 MCG/ML VIAL 1000 MCG IM (11:25)
[2025-08-07 15:59] VITALS: BP 185/79; PULSE 64; TEMP 37.1; O2SAT 98
[2025-08-14 13:29] VITALS: BP 123/65; PULSE 69; TEMP 36.3; O2SAT 94
[2025-08-14] MEDS: CYANOCOBALAMIN 1,000 MCG/ML VIAL 1000 MCG IM (13:31)
[2025-08-21 13:18] VITALS: BP 176/76; PULSE 64; TEMP 36.6; O2SAT 94
[2025-08-21] MEDS: CYANOCOBALAMIN 1,000 MCG/ML VIAL 1000 MCG IM (13:22)
[2025-08-28 13:22] VITALS: BP 209/92; PULSE 65; TEMP 36.2; O2SAT 100
[2025-08-28] MEDS: CYANOCOBALAMIN 1,000 MCG/ML VIAL 1000 MCG IM (13:31)
== END 2025-08-31 23:59 | disposition home or self-care (01) ==
LOC: HEMC 13:19
PROVIDERS: PCP Physician Assistant; Visit Provider Internal Medicine Hematology & Oncology
DX: D51.9 Vitamin B12 deficiency anemia, unspecified (principal); D47.3 Essential (hemorrhagic) thrombocythemia; D64.9 Anemia, unspecified; D72.829 Elevated white blood cell count, unspecified; D50.9 Iron deficiency anemia, unspecified; K90.9 Intestinal malabsorption, unspecified
CPT/HCPCS: 96365; 96372; J1439; J3420

== ENCOUNTER 2025-09-25 13:19 | Outpatient (RCR) | payer MEDICARE, OTHER, SELFPAY ==
[2025-09-04 13:34] VITALS: BP 156/80; PULSE 63; TEMP 36.4; O2SAT 97
[2025-09-04] MEDS: CYANOCOBALAMIN 1,000 MCG/ML VIAL 1000 MCG IM (13:41)
[2025-09-18 13:39] VITALS: BP 186/94; PULSE 64; TEMP 36.6; O2SAT 96
[2025-09-18] MEDS: CYANOCOBALAMIN 1,000 MCG/ML VIAL 1000 MCG IM (13:47)
--- NOTE | 2025-09-18 13:57 | PC.NURSE ---
sent list of recent blood pressures to Dr. Ledezma's office
[2025-09-25 13:25] VITALS: BP 180/86; PULSE 62; TEMP 36.4; O2SAT 95
[2025-09-25] MEDS: CYANOCOBALAMIN 1,000 MCG/ML VIAL 1000 MCG IM (13:30)
[2025-09-25 13:56] LABS: Hematocrit 41.3 % (36.0-48.0); Hemoglobin 13.7 g/dL (12.0-16.0); Immature Granulocytes Abs Auto 0.08 10^3/uL (0.00-0.03); Immature Granulocytes Pct Auto 1.0 % (0.0-0.5); Lymphocytes Absolute Auto 1.9 10^3/uL (1.2-3.8); Mean Corpuscular HGB Conc 33.2 g/dL (29.9-35.2); Mean Corpuscular Hemoglobin 39.0 pg (26.7-34.0); Mean Corpuscular Volume 117.7 fL (81.0-99.0); Platelet Count 884 10^3/uL (150-450); Red Blood Count 3.51 10^6/uL (4.20-5.40); White Blood Count 8.4 10^3/uL (4.0-11.0)
[2025-09-25 14:05] LABS: Iron 99.0 ug/dL (50.0-170.0); Percent Iron Saturation 40.6 %; Total Iron Binding Capacity 244.0 ug/dL (250.0-450.0)
[2025-09-25 14:18] LABS: Ferritin 326.0 ng/mL (8.0-252.0)
== END 2025-09-30 23:59 | disposition home or self-care (01) ==
LOC: HEMC 13:19
PROVIDERS: PCP Physician Assistant; Visit Provider Internal Medicine Hematology & Oncology
DX: D50.9 Iron deficiency anemia, unspecified (principal); D51.9 Vitamin B12 deficiency anemia, unspecified; D47.3 Essential (hemorrhagic) thrombocythemia; D72.829 Elevated white blood cell count, unspecified; D64.9 Anemia, unspecified; K90.9 Intestinal malabsorption, unspecified
CPT/HCPCS: 36415; 82728; 83540; 83550; 85025; 96372; G0463; J3420

== ENCOUNTER 2025-10-23 13:17 | Outpatient (RCR) | payer MEDICARE, OTHER, SELFPAY ==
[2025-10-02 13:22] VITALS: BP 196/86; PULSE 59; TEMP 36.4; O2SAT 96
[2025-10-02] MEDS: CYANOCOBALAMIN 1,000 MCG/ML VIAL 1000 MCG IM (13:34)
[2025-10-23 13:21] VITALS: BP 125/66; PULSE 70; TEMP 36.6; O2SAT 98
[2025-10-23] MEDS: CYANOCOBALAMIN 1,000 MCG/ML VIAL 1000 MCG IM (13:27)
[2025-10-23 13:54] LABS: Hematocrit 38.3 % (36.0-48.0); Hemoglobin 12.7 g/dL (12.0-16.0); Immature Granulocytes Abs Auto 0.06 10^3/uL (0.00-0.03); Immature Granulocytes Pct Auto 0.7 % (0.0-0.5); Lymphocytes Absolute Auto 1.4 10^3/uL (1.2-3.8); Mean Corpuscular HGB Conc 33.2 g/dL (29.9-35.2); Mean Corpuscular Hemoglobin 39.8 pg (26.7-34.0); Mean Corpuscular Volume 120.1 fL (81.0-99.0); Platelet Count 739 10^3/uL (150-450); Red Blood Count 3.19 10^6/uL (4.20-5.40); White Blood Count 8.6 10^3/uL (4.0-11.0)
[2025-10-23 14:15] LABS: Anion Gap 10.0; Blood Urea Nitrogen 12.0 mg/dL (7.0-18.0); Calcium 8.4 mg/dL (8.5-10.1); Carbon Dioxide 29.9 mmol/L (21.0-32.0); Chloride 105 mmol/L (98-107); Estimated GFR (African America >60 (>=60 mL/min/1.73m^2); Estimated GFR (Non-African Ame >60 (>=60 mL/min/1.73m^2); Glucose 90 mg/dL (74-106); Potassium 4.9 mmol/L (3.5-5.1); Sodium 140 mmol/L (136-145)
[2025-10-23 14:50] LABS: Iron 64.0 ug/dL (50.0-170.0); Percent Iron Saturation 29.1 %; Total Iron Binding Capacity 220.0 ug/dL (250.0-450.0)
[2025-10-23 15:06] LABS: Ferritin 324.0 ng/mL (8.0-252.0); Folate 9.00 ng/mL (8.60-58.90)
[2025-10-24 03:07] LABS: Vitamin B12 >2000 pg/mL (232-1245)
== END 2025-10-31 23:59 | disposition home or self-care (01) ==
LOC: HEMC 13:17
PROVIDERS: PCP Physician Assistant; Visit Provider Internal Medicine Hematology & Oncology
DX: D47.3 Essential (hemorrhagic) thrombocythemia (principal); D64.9 Anemia, unspecified; D72.829 Elevated white blood cell count, unspecified; D51.9 Vitamin B12 deficiency anemia, unspecified; D50.9 Iron deficiency anemia, unspecified; K90.9 Intestinal malabsorption, unspecified
CPT/HCPCS: 36415; 80048; 82607; 82728; 82746; 83540; 83550; 85025; 96372; J3420